=== PATIENT | female | born 1955 | race Caucasian/White ===

== ENCOUNTER → 2019-07-29 | Outpatient (CLI) | payer OTHER | END | disposition home or self-care (01) | LOC: RAH 10:01 | PROVIDERS: ATTEND Family Medicine | DX: Z12.31 Encounter for screening mammogram for malignant neoplasm of breast (principal); N64.89 Other specified disorders of breast | CPT/HCPCS: 77067 ==

== ENCOUNTER → 2024-03-16 | Outpatient (CLI) | payer MEDICARE ==
--- NOTE | 2024-03-16 23:32 | HMCSR ---
APPROVED REPORT EXAM: Two-dimensional and M-mode echocardiogram with Doppler and color Doppler. INDICATION ICD: Takotsubo cardiomyopathy I51.81 2D Dimensions RVDd2.9 cmLVEF(%)60.4 (>50%)LVED Vol(simp.)44.7 mL IVSd1.4 (0.7-1.1cm)FS(%)30 %LVES Vol(simp.)18.3 mL LVDd2.3 (3.8-5.6cm)LA (2D)1.9 (1.6-4.0cm)LVEF(%, simp.)59 % PWd1.2 (0.7-1.1cm)Ao Root(2D)3.4 (2.0-3.7cm)LA ESV INDEX (4CH)14.30 mL/m2 IVSs1.6 cmLVOT diam1.9 (1.8-2.4cm)LA ESV INDEX (2CH)14.90 mL/m2 LVDs1.6 (2.5-4.0cm) PWs1.4 cm M-Mode Dimensions EPSS0.6 cm LA (MM)1.7 (1.6-4.0cm) Ao Root(MM)3.4 (2.0-3.7cm) Aortic Valve AoV VTI0.8 mAo Mean GR43.0 mmHgLVOT VTI0.40 m ISMAEL (VMAX)1.5 cm2AVA (VTI) 1.5 cm2 Mitral Valve MV E Vmax65.0 cm/sDECEL Zouv084 ms MV A Vmax83.9 cm/sP 1/2 T30 ms E/A ratio0.8MVA (PHT)7.3 cm2 MR Max PG119 mmHg TDI E/E' Fyiwoa39.1E/E' Wecbzat32.7 Medial E' Peak V3.40 cm/sLateral E' Peak V3.30 cm/s Pulmonary Valve PV Vmax0.9 m/s PV Peak GR3.1 mmHg Tricuspid Valve TR Vmax2.4 m/sRAP (EST) 3 vqDcKIUC75.6 mmHg TR Peak GR22.6 mmHg Left Ventricle Left ventricular cavity size is normal. Normal wall motion Moderate concentric left ventricular hyper trophy. LVEF is >55%. Stage I diastolic dysfunction. Right Ventricle The right ventricle is normal size. The right ventricle is hyperdynamic. Atria The left atrium size is normal. The right atrium size is normal. Aortic Valve Aortic valve leaflets open well. No aortic regurgitation is present. There is no aortic valvular sten osis. LVOT obstruction with pk gradient of 109mmHg and mean gradient of 43mmHg. 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 Systolic anterior motion o f the mitral valve leaflet present. There is mild mitral valve regurgitation noted. There is no randy l valve stenosis. Tricuspid Valve The tricuspid valve is normal in structure and function. There is trace of tricuspid valve regurgitat ion noted. Pulmonic Valve The pulmonary valve is normal in structure and function. There is no pulmonic valvular regurgitation. Great Vessels The aortic root is normal in size. The IVC is normal in size and collapses >50% with inspiration. Pericardium Small pericardial effusion. Other Information Quality : Adequate Conclusion LVEF is >55%. Moderate concentric left ventricular hypertrophy. Left ventricular cavity size is normal. Stage I diastolic dysfunction. Normal wall motion There is no aortic valvular stenosis. LVOT obstruction with pk gradient of 109mmHg and mean gradient of 43mmHg. 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 Systolic anterior motion o f the mitral valve leaflet present. There is mild mitral valve regurgitation noted. Small pericardial effusion. Mild pulmonary hypertension Study quality was adequate
== END | disposition home or self-care (01) ==
LOC: RAH 14:45
PROVIDERS: ATTEND Internal Medicine Cardiovascular Disease
DX: I34.0 Nonrheumatic mitral (valve) insufficiency (principal); I51.81 Takotsubo syndrome; I27.20 Pulmonary hypertension, unspecified; I31.39 Other pericardial effusion (noninflammatory)
CPT/HCPCS: 93306

== ENCOUNTER → 2024-04-23 | Outpatient (CLI) | payer MEDICARE ==
--- NOTE | 2024-04-23 11:11 | HMCIMG ---
ESOPHAGUS REASON: Esophageal obstruction; Abnormal findings on diagnostic imaging of other pa COMPARISON: None TECHNIQUE: Esophagram was performed with fluoroscopic observation, fluoroscopy time 1 minute. Exam was performed with difficulty as patient was weak and had to difficult time standing. Initial barium administration was with the table and approximately 60 degree angle. FINDINGS: Swallowing mechanism appears unremarkable. Proximal and mid esophagus appear normal. There is a long segment of irregular narrowing in the distal esophagus. This measures approximately 5 cm. The narrowing appears fixed and does not distend with peristalsis. The narrowest point in the distal esophagus is between 3 and 4 mm. Patient was turned to the supine position for additional images. Patient was then raised to 260 degrees. There was retained barium in the esophagus, this again showed persistent marked narrowing of the distal esophagus. There is a small sliding hiatal hernia. Exam is otherwise unremarkable. IMPRESSION: 1. Severe irregular narrowing of the last 5 cm of the esophagus, the narrowest point is approximately 3 to 4 mm. 2. Otherwise unremarkable exam.
== END | disposition home or self-care (01) ==
LOC: RAH 09:36
PROVIDERS: ATTEND Internal Medicine Gastroenterology
DX: K22.2 Esophageal obstruction (principal); R93.3 Abnormal findings on diagnostic imaging of other parts of digestive tract; K44.9 Diaphragmatic hernia without obstruction or gangrene
CPT/HCPCS: 74220

== ENCOUNTER 2024-05-04 05:35 | Day surgery (SDC) | payer MEDICARE ==
[~2024-05-04] VITALS: Ht 154.9 cm; Wt 46.7 kg
[2024-05-04] VITALS (10 sets, daily range): BP systolic 109–120; BP diastolic 70–78; PULSE 61–90; RESP 10–16; TEMP 97–97.4
[2024-05-04] MEDS: 0.9%NACL 1000ML 1,000 ML IV ONE (06:26)
[2024-05-04] MEDS ORDERED: [UNRECOGNIZED DRUG - OTHER] PO (06:28)
[2024-05-04] MEDS ORDERED: LORA10TA7 PO (06:36)
[2024-05-04] MEDS ORDERED: LANS30CA55 PO (06:36)
[2024-05-04] MEDS ORDERED: SERT-440 PO (06:36)
[2024-05-04] MEDS ORDERED: ERGO500093 PO (06:36)
[2024-05-04] MEDS ORDERED: MONT-39 PO (06:36)
[2024-05-04] MEDS ORDERED: POTA-183 PO (06:36)
[2024-05-04] MEDS ORDERED: SUCR1TAB2 PO (06:36)
[2024-05-04] MEDS ORDERED: PROM25TA7 PO (06:36)
[2024-05-04] MEDS ORDERED: FAMO40TA7 PO (06:36)
[2024-05-04] MEDS ORDERED: LEVO50CA4 PO (06:36)
[2024-05-04] MEDS ORDERED: BISA-151 PO (06:36)
[2024-05-04] MEDS ORDERED: QUET50TA PO (06:36)
[2024-05-04] MEDS ORDERED: CYAN100099 PO (06:36)
[2024-05-04] MEDS ORDERED: MIDO5TAB4 PO (06:36)
[2024-05-04] MEDS ORDERED: FLUD0.1T2 PO (06:36)
[2024-05-04] MEDS ORDERED: ESOM40CA66 PO (06:36)
[2024-05-04] MEDS ORDERED: APIX5TAB PO (06:36)
[2024-05-04] MEDS ORDERED: ONDA-105 PO (06:36)
[2024-05-04] MEDS ORDERED: MEGE400O6 PO (06:36)
[2024-05-04] MEDS ORDERED: FOLI0.8C PO (06:36)
[2024-05-04] MEDS ORDERED: SIMV-43 PO (06:36)
[2024-05-04] MEDS ORDERED: proPOFol 10 MG/ML 20ML VIAL IV ONE (07:33)
[2024-05-04] MEDS ORDERED: LIDOCAINE HCL 1% 20 ML VIAL ONE (07:33)
--- NOTE | 2024-05-04 08:49 | NUR ---
Full and complete discharge instructions given to Patient and family. Voiced understanding of GI procedures and follow up expectations/Diet. All questions answered. PIV removed with catheter tip intact. W/C to POV with Family.
== END 2024-05-04 08:50 | disposition home or self-care (01) ==
LOC: ENDO 05:35 → DAH 05:35 → ENDO 08:50
PROVIDERS: ATTEND Internal Medicine Gastroenterology
DX: R13.10 Dysphagia, unspecified (principal); K22.2 Esophageal obstruction; K21.00 Gastro-esophageal reflux disease with esophagitis, without bleeding; K57.30 Diverticulosis of large intestine without perforation or abscess without bleeding; R93.3 Abnormal findings on diagnostic imaging of other parts of digestive tract; K50.90 Crohn's disease, unspecified, without complications; K59.09 Other constipation; I10 Essential (primary) hypertension; E03.9 Hypothyroidism, unspecified; E78.5 Hyperlipidemia, unspecified; I51.81 Takotsubo syndrome; F32.A Depression, unspecified; Z98.84 Bariatric surgery status; Z79.899 Other long term (current) drug therapy; Z87.898 Personal history of other specified conditions; Z98.890 Other specified postprocedural states
CPT/HCPCS: 43239; 43249; J7030 ×2; J2704; C1726; A4615; A4215; A4223; A4222; A4221; A4663; A4606; J3490

== ENCOUNTER 2024-07-09 16:21 | Inpatient (IN) | payer MEDICARE ==
[~2024-07-09] VITALS: Ht 170.2 cm; Wt 63.0 kg
[~2024-07-09 16:21] MED LIST: APIX5TAB PO; BISA-151 PO; CYAN100099 PO; ERGO500093 PO; ESOM40CA66 PO; FAMO40TA7 PO; FLUD0.1T2 PO; FOLI0.8C PO; LANS30CA55 PO; LEVO50CA5 PO; LORA10TA7 PO; MEGE400O40 PO; MIDO5TAB4 PO; MONT-39 PO; ONDA-105 PO; POTA-183 PO; PROM25TA7 PO; QUET50TA PO; SERT-440 PO; SIMV-43 PO; SUCR1TAB2 PO; [UNRECOGNIZED DRUG - OTHER] PO
--- NOTE | 2024-07-09 17:49 | EKG ---
[facility] Test Date: 2024-07-09 Test Time: 17:47:40 Pat Name: EFRAIN BAKER Department: EDH Room: 230 Gender: F [employer] Operator: [id number] : 1955 Requested By: ISAC AYON Order Number: [id number] Reading MD: Arsalan Cheney Measurements Intervals Randolph Rate: 99 P: 27 WV: 122 QRS: 56 QRSD: 70 T: 110 QT: 374 QTc: 473 Interpretive Statements Sinus rhythm Atrial premature complexes Low voltage, extremity and precordial leads Nonspecific T abnormalities, lateral leads No previous ECG available for comparison Electronically Signed On 07-14-2024 07:11:49 CDT by Arsalan Cheney Please click the below link to view image of tracing.
--- NOTE | 2024-07-09 17:59 | ERN ---
ED Note History of Present Illness Stated Complaint: DIRECT ADMIT Chief Complaint: Abdominal Pain Time Seen by MD: 17:51 Time Seen by Midlevel: 18:00 Dictation: 69-year-old female with a history of hypothyroidism, COPD, cholesterol coming from GI is office for evaluation of dysphagia. According to family patient has a history of esophageal obstruction in the has a had stents placed in but yesterday he fat her oatmeal and since then has been throwing up all the fluid and foods that they have been feeding her. Today went to the GI office in the GI physician and was told to come here to the emergency room. Patient at this time has no complaints. Allergies: Coded Allergies: No Known Allergies (Unverified Allergy, Unknown, 05/18/24) Home Meds Reported Medications Promethazine HCl (Promethazine HCl) 25 Mg Tablet, 1 TAB PO Q6HPRN PRN for nausea/vomiting for 7 Days, #28 TAB 0 Refills 05/04/24 Montelukast Sodium (Montelukast Sodium) 10 Mg Tablet, 1 TAB PO DAILY for 30 Days, #30 TAB 0 Refills 05/04/24 Loratadine (Loratadine) 10 Mg Tablet, 1 TAB PO DAILY for allergy symptoms for 30 Days, #30 TAB 0 Refills 05/04/24 Megestrol Acetate (Megestrol Acetate) 400 Mg/10 Ml (40 Mg/Ml) Oral.susp, 10 ML PO DAILY for 30 Days, #300 ML 0 Refills 05/04/24 Fludrocortisone Acetate (Fludrocortisone Acetate) 0.1 Mg Tablet, 1 TAB PO DAILY for 30 Days, #30 TAB 0 Refills 05/04/24 Midodrine HCl (Midodrine HCl) 5 Mg Tablet, 1 TAB PO TID for 30 Days, #90 TAB 0 Refills 05/04/24 Sucralfate (Sucralfate) 1 Gram Tablet, 1 TAB PO TID for 30 Days, #90 TAB 0 Refills 05/04/24 Quetiapine Fumarate (Seroquel) 50 Mg Tablet, 1 TAB PO HS for 30 Days, #30 TAB 0 Refills 05/04/24 Esomeprazole Magnesium (Esomeprazole Magnesium) 40 Mg Capsule.dr, 1 CAP PO DAILY for 30 Days, #30 CAP 0 Refills 05/04/24 Ergocalciferol (Vitamin D2) (Vitamin D2) 1,250 Mcg (73834 Unit) Capsule, 1250 MCG PO AM, CAP 05/04/24 Simvastatin (Simvastatin) 20 Mg Tablet, 20 MG PO AM, TAB 05/04/24 Bisacodyl (Bisacodyl) 5 Mg Tablet.dr, 5 MG PO AM, TAB 05/04/24 Potassium Chloride (Klor-Con 10) 10 Meq Tablet.er, 1 TAB PO DAILY for 30 Days, #30 TAB 0 Refills 05/04/24 Lansoprazole (Lansoprazole) 30 Mg Capsule.dr, 30 MG PO BID, CAP 05/04/24 Sertraline HCl (Sertraline HCl) 100 Mg Tablet, 1 TAB PO DAILY for 30 Days, #30 TAB 0 Refills 05/04/24 Folic Acid (Folic Acid) 0.8 Mg Capsule, 1 CAP PO DAILY for 30 Days, #30 CAP 0 Refills 05/04/24 Cyanocobalamin (Vitamin B-12) (B-12) 1,000 Mcg Tablet, 1 TAB PO DAILY for 30 Days, #30 TAB 0 Refills 05/04/24 Apixaban (Eliquis) 5 Mg Tablet, 1 TAB PO BID for 30 Days, #60 TAB 0 Refills 05/04/24 Levothyroxine Sodium (Levothyroxine) 50 Mcg Capsule, 1 CAP PO DAILY for 30 Days, #30 CAP 0 Refills 05/04/24 Ondansetron HCl (Ondansetron HCl) 8 Mg Tablet, 1 TAB PO TID for nausea/vomiting for 10 Days, #30 TAB 0 Refills 05/04/24 Famotidine (Famotidine) 40 Mg Tablet, 1 TAB PO DAILY for 30 Days, #30 TAB 0 Refills 05/04/24 [Azasan] No Conflict Check, 50 MG PO AM 05/04/24 Past Medical History Past Medical History: Diverticulosis, GERD, Hypothyroid, Other Additional Past Medical Hx: CROHNS Surgical History: Other Surgical History Other: ESOPHAGEAL STENT Review of System Dictation Constitutional: Negative for fever,chills, and weight loss Eyes: Negative for injury, pain,redness, and discharge ENT: Negative for injury,pain or swelling Cardiovascular: Negative for chest pain, palpitations, and edema Respiratory: Negative for shortness of breath, cough, and wheezing, Abdomen/GI: Negative for abdominal pain, nausea, vomiting, diarrhea, and constipation Back: Negative for injury and pain : Negative for injury, bleeding and discharge MS/Extremity: Negative for injury and deformity Skin: Negative for rash, and discoloration Neuro: Negative for headache, weakness, numbness, tingling, and seizure Psych: Negative for suicide ideation, homicidal ideation, and hallucinations Review of Systems: was completed Initial Vital Sign VS Vital Signs Date Time Temp Pulse Resp B/P (MAP) Pulse Ox O2 Delivery O2 Flow Rate FiO2 07/09/24 16:46 98.1 70 16 100 Room Air 0 07/09/24 18:47 125/80 21 Physical Exam Dictation General: awake, alert, NAD Head/Face: Normocephalic, atraumatic Eyes: PERRL, EOMI, vision at baseline ENT: oral cavity clear, TMs clear, no signs of infection Neck: Trachea midline, supple, no nuchal rigidity Cardiovascular: RRR, normal S1/S2, No MRGs, no JVD, bilateral lower extremities plus three pitting edema Respiratory: CTAB, no respiratory distress, No rales or wheezes Abdomen: Soft, non-tender, non-distended, normal bowel sounds, no guarding or rebound. Skin: Warm, dry, normal turgor, no rash MS/Extremity: Pulses equal, no cyanosis, neurovascular intact, FROM Neuro: COAx4, GCS 15, strength 5/5, CN 2-12 intact, normal cerebellar exam, normal gait, Psych: Normal behavior, mood, and affect normal Results (Laboratory/Radiology) Laboratory/Radiology Laboratory Tests Test 07/09/24 18:23 07/09/24 18:53 White Blood Count 4.4 K/uL (4.8-10.8) L Red Blood Count 3.00 MIL/uL (4.00-5.50) L Hemoglobin 10.0 g/dL (12.0-16.0) L Hematocrit 32.3 % (36-48) L Mean Corpuscular Volume 107.7 fL (79-99) H Mean Corpuscular Hemoglobin 33.3 pg (27.0-33.0) H Mean Corpuscular Hemoglobin Concent 31.0 g/dL (32.0-36.0) L Red Cell Distribution Width 20.9 % (11.0-15.5) H Platelet Count 260 K/uL (130-400) Mean Platelet Volume 9.8 fL (7.5-10.5) Immature Granulocyte % (Auto) 0.2 % (0-1) Neutrophils (%) (Auto) 81.0 % (40.0-77.0) H Lymphocytes (%) (Auto) 13.3 % (21.0-51.0) L Monocytes (%) (Auto) 5.0 % (3.0-13.0) Eosinophils (%) (Auto) 0.0 % (0.0-8.0) Basophils (%) (Auto) 0.5 % (0.0-5.0) Neutrophils # (Auto) 3.6 K/uL (1.8-7.7) Lymphocytes # (Auto) 0.6 K/uL (1.0-4.8) L Monocytes # (Auto) 0.2 K/uL (0.1-1.0) Eosinophils # (Auto) 0.00 K/uL (0.00-0.70) Basophils # (Auto) 0.02 K/uL (0.00-0.20) Absolute Immature Granulocyte (auto 0.01 K/uL (0-1) Nucleated Red Blood Cells 0.0 % (0.0-0.19) Red Blood Cell Morphology See comments Sodium Level 142 mmol/L (136-145) Potassium Level 3.8 mmol/L (3.5-5.1) Chloride Level 108 mmol/L (101-111) Carbon Dioxide Level 24 mmol/L (21-32) Blood Urea Nitrogen 15 mg/dL (7-18) Creatinine 0.4 mg/dL (0.5-1.0) L Glomerular Filtration Rate Calc 108 mL/min (>90) Random Glucose 62 mg/dL (70-105) L Total Calcium 8.1 mg/dL (8.5-10.1) L Troponin I High Sensitivity 8 ng/L (4-50) B-Type Natriuretic Peptide 94 pg/mL (0-100) Lipase 11 U/L (16-77) L Influenza Type A Antigen Negative For Type A Influenza Type B Antigen Negative For Type B SARS-CoV-2 Antigen (Rapid) PRESUMPTIVE NEGATIVE Labs Reviewed?: Yes EKG Comment: EKGs done at 5:47 p.m., sinus rhythm at a rate of 99, atrial premature complexes, low voltage, extremity and precordial leads, nonspecific T abnormalities, lateral leads. No STEMI interpreted by ER MD. X-RAY Comment: [facility] [address] [id number] IMAGING REPORT Signed PATIENT: EFRAIN BAKER I MR#: [id number] : 1955 SEX: F AGE: 69 LOCATION: ED ORDER 173 STATUS: REG ER REPORT#: [id number] SERVICE 172 REASON: cough ORDERING PHYSICIAN: ISAC AYON NP PROCEDURE: CXR1VW - CHEST 1VW PORTABLE CHEST RADIOGRAPH INDICATION: cough COMPARISON: 07/09/2024 CT chest FINDINGS: Patient positioning is not optimal, but the radiologic examination is still believed to be of reasonable diagnostic quality. Heart size is normal. The pulmonary vascularity and payam appear normal. Left lung opacities. Small to medium-sized left pleural effusion. No pneumothorax detected. IMPRESSION: Left lung pneumonia and small to medium-sized left pleural effusion. Please refer to the corresponding CT chest imaging for details regarding nontypical right lung pneumonia or other small airways disease process. DICTATED BY: STEFANY MARROQUIN MD DATE: 07/09/241849 ELECTRONICALLY SIGNED BY: STEFANY MARROQUIN MD DATE: 07/09/241852 CT Scan Comment: [facility] [address] [id number] IMAGING REPORT Signed PATIENT: EFRAIN BAKER I MR#: [id number] : 1955 SEX: F AGE: 69 LOCATION: ED ORDER 43 STATUS: REG ER REPORT#: [id number] SERVICE 174 REASON: dyphagia ORDERING PHYSICIAN: ISAC AYON NP PROCEDURE: CHESTAB WO - CT CHEST ABDOMEN W/O CONTRAST CT CHEST WITHOUT CONTRAST. CT ABDOMEN WITHOUT CONTRAST INDICATION: Dysphagia; no other history provided. TECHNIQUE: Routine 5 mm thick axial images were acquired from the thoracic inlet through the abdomen without contrast. CT was performed with one or more of the following dose reduction techniques: Automated exposure control, adjustment of the mA and/or kV according to patient size, or use of iterative reconstruction technique. COMPARISON: 05/19/2024 FINDINGS: Patient positioning is not optimal, and this CT examination is limited as a result. CT CHEST: The heart size is normal. No pericardial effusion noted. No evidence for thoracic aortic aneurysm. Lingular and left lower lobe greater than left upper lobe airways are filled with mucus/secretions/aspirated material. Trachea and right lung airways are patent. No evidence for pneumothorax. Small to medium-sized left pleural effusion and extensive lingular and left lower lobe opacities. Scattered "tree-in-bud" micronodular opacities scattered throughout the inferior right upper lobe and throughout the right lower lobe. No axillary, hilar, or mediastinal lymphadenopathy. No pleural effusion or pneumothorax identified. CT ABDOMEN: The liver is normal in size and smooth in contour without biliary duct dilation. The spleen is normal in size.. The gallbladder appears normal. The pancreas appears normal without pancreatic duct dilation. The adrenal glands appear normal. Both kidneys appear normal. . No evidence for intra-abdominal free air or free or organized fluid collection. Trace calcific plaque along the abdominal aortic smith without aneurysmal dilation. IVC filter is in place. Moderate stool burden. A few diverticula along the distal colon. Generalized moderate soft tissue swelling. Chronic moderate L1 vertebral body compression deformity. IMPRESSION: Limited history provided. Limitations as reported. 1. Posterior left upper lobe, lingular, and left lower lobe atelectasis/evolving pneumonia, likely aspiration-related (lingular and left lower lobe greater than left upper lobe airways are filled with mucus/secretions/aspirated material), and associated small to medium-sized left pleural effusion. 2. Nontypical right lung pneumonia or other small airways disease process. 3. Very small pericardial effusion with greatest thickness measuring up to 1.0 cm. 4. Small pericardial effusion, small-volume abdominopelvic ascites and moderate anasarca, all of which may be related to fluid imbalance and/or cardiogenic. 5. Distal colonic diverticulosis and moderate stool burden. 6. Additional minor findings and pertinent negatives as reported. DICTATED BY: STEFANY MARROQUIN MD DATE: 07/09/241816 ELECTRONICALLY SIGNED BY: STEFANY MARROQUIN MD DATE: 07/09/241825 ED Course ED Course Orders Procedure Category Date Status Time Cbc With Differential LAB 07/09/24 Complete 17:29 Basic Metabolic Panel LAB 07/09/24 Complete 17:29 Troponin I High LAB 07/09/24 Complete Sensitivity 17:29 12 Lead Ekg Tracing- EKG 07/09/24 Complete Technical 17:29 Chest 1vw RAD 07/09/24 Resulted 17:29 Urinalysis Profile LAB 07/09/24 Logged 17:29 Covid19 (Sars Antigen LAB 07/09/24 Complete Rapid) 17:29 Influenza Type A & B, LAB 07/09/24 Complete Rapid 17:29 B-Type Natriuretic LAB 07/09/24 Complete Peptide 17:31 0.9%Nacl 1000ml (Ns PHA 07/09/24 In Process 1000ml) 17:34 Ct Chest Abdomen W/O CT 07/09/24 Resulted Contrast 17:43 Lipase LAB 07/09/24 Complete 17:29 Ceftriaxone 1g Vial PHA 07/09/24 In Process (Rocephine 1g Inj) 19:19 Admit Orders ADM 07/09/24 Transmitted 19:29 Keep Patient Npo CPOE 07/09/24 Transmitted 19:[address] 07/09/24 Transmitted 19:29 Basic Metabolic Panel LAB 07/10/24 Verified 04:00 Cbc With Differential LAB 07/10/24 Verified 04:00 Magnesium LAB 07/10/24 Verified 04:00 Phosphorus LAB 07/10/24 Verified 04:00 Blood Cult DESTINY 07/09/24 Logged 19:29 Respiratory Cult DESTINY 07/09/24 Logged W/Gram Stain 19:29 Urinalysis Profile LAB 07/09/24 Logged 19:29 Apply Knee High Teds CPOE 07/09/24 Transmitted 19:29 Apply Scds CPOE 07/09/24 Transmitted 19:29 Condition: CPOE 07/09/24 Transmitted 19:29 Nurse To Enter Home CPOE 07/09/24 Transmitted Medication 19:29 Oxygen By Nc/Pulse Ox CPOE 07/09/24 Transmitted 19:29 Telemetry Monitoring CPOE 07/09/24 Transmitted 19:29 Vital Signs(Adult CPOE 07/09/24 Transmitted Hospitalist) 19:29 Acetaminophen 650mg PHA 07/09/24 In Process Supp (Tylenol 650mg 19:30 Ondansetron 4mg Inj PHA 07/09/24 In Process (Zofran 4mg Inj) 19:30 Morphine 4mg Syg PHA 07/09/24 In Process (Morphine 4mg Syg) 19:30 Hydralazine 20mg Inj PHA 07/09/24 In Process (Apresoline 20mg In 19:30 Enoxaparin Sodium 40 PHA 07/10/24 In Process Mg/0.4 Ml (Lovenox) 09:00 Ipratropium/Albuterol PHA 07/10/24 In Process Neb (Duoneb) 00:00 Lactated Ringers PHA 07/09/24 In Process 1000ml (Lactated 19:30 Aspiration Precautions CPOE 07/09/24 Transmitted 19:29 Tapwater Enema(0500, CPOE 07/09/24 Transmitted 2100) 19:35 Thyroid Stimulating LAB 07/10/24 Verified Hormone 04:00 Echo 2-D Complete ECHO 07/09/24 Logged 19:36 Zosyn 3.375gm+Ns 50ml PHA 07/09/24 In Process (Zosyn 3.375gm+Ns 21:00 Fall Precautions CPOE 07/09/24 Transmitted 19:40 Famotidine 20mg Vial PHA 07/10/24 In Process (Pepcid 20mg Vial) 09:00 Gastroenterology CONPHYSVC 07/09/24 Verified Consult 19:46 Current Medications Medications (Trade) Dose Ordered Sig/Jennifer Route PRN Reason Start Time Stop Time Status Last Admin Dose Admin Acetaminophen (TYLenol 650MG SUPPOSITORY) 650 mg Q6H PRN RC MILD PAIN (1-3) 07/09/24 19:30 08/08/24 19:29 Albuterol (DUOneb) 1 UDVIAL [id number] IH 07/10/24 00:00 08/09/24 00:00 Ceftriaxone Sodium (ROCEphine 1G INJ) 1 gm ONCE IVPB 07/09/24 19:19 07/09/24 23:59 Enoxaparin Sodium (Lovenox) 40 mg DAILY SQ 07/10/24 09:00 08/09/24 08:59 Famotidine (Pepcid 20mg Vial) 20 mg DAILY IV 07/10/24 09:00 08/09/24 08:59 Hydralazine HCl (APRESOLine 20MG INJ) 10 mg Q6H PRN IV For:SBP above 160;DBP above 90 07/09/24 19:30 08/08/24 19:29 Lactated Ringer's 1,000 ml @ 75 mls/hr [id number] IV 07/09/24 19:30 08/08/24 19:29 Morphine Sulfate (morPHINE 4MG SYG) 2 mg Q4H PRN IVP SEVERE PAIN (7-10) 07/09/24 19:30 07/16/24 19:29 Ondansetron HCl (zoFRAN 4MG INJ) 4 mg Q6H PRN IV NAUSEA/VOMITING 07/09/24 19:30 08/08/24 19:29 Piperacillin Sod/ Tazobactam Sod (Zosyn 3.375gm+NS 50ml) 3.375 gm [id number] IV 07/09/24 21:00 07/19/24 20:59 Sodium Chloride 1,000 ml @ 500 mls/hr Q2H IV 07/09/24 17:34 08/08/24 17:33 Vital Signs Date Time Temp Pulse Resp B/P (MAP) Pulse Ox O2 Delivery O2 Flow Rate FiO2 07/09/24 18:47 98.1 89 14 125/80 96 Room Air* 0 21 07/09/24 16:46 98.1 70 16 100 Room Air 0 Medical Decision Making MDM MDM:69-year-old female with a history of hypothyroidism, COPD, cholesterol coming from GI is office for evaluation of dysphagia. According to family patient has a history of esophageal obstruction in the has a had stents placed in but yesterday he fat her oatmeal and since then has been throwing up all the fluid and foods that they have been feeding her. Today went to the GI office in the GI physician and was told to come here to the emergency room. Patient at this time has no complaints. Chemistry shows leukocytopenia 4.4, however this seems to be patient's baseline based on previous visits. Microcytic anemia, no thrombocytopenia. Chemistry shows no electrolyte abnormality. CT scan of the chest and abdomen shows right lung pneumonia, small pericardial effusion, moderate anasarca, diverticulosis. Edmund MAS for hospitalist, okay to admit patient. Added an order for routine consult for GI. And initiate antibiotics in the emergency room. Differential diagnosis: SBO, esophageal stricture, gastroenteritis, dehydration, Rationale: Tests considered and ordered secondary to shared decision making include: labs, ECG and radiology Previous outside records reviewed: Old ER visits. Risk of complication and/or morbidity or mortality of patient management: None Medications-Per medication reconciliation Need for hospitalization: Patient does meet criteria for hospitalization. Need for emergency major/minor surgery: No There are no social concerns with this patient. Prescription drug management Prescriptions will include symptomatic care Patient's prior external medical records from other ER visits were reviewed by me as indicated. Prior testing and results from previous visits were reviewed. Prior tests were taken into account with medical decision making and resource utilization, independent historian/historians were used to obtain complete medical history. I independently interpreted the test that were performed, results were reviewed by me and considered findings on radiology if ordered. Medical management and examination interpretation discussions were had by me with other qualified healthcare professionals as indicated for the patient's care. DX & DISP Disposition: Inpatient Decision to Admit Date: Jul 09, 2024 Decision to Admit Time: 19:48 Departure Impression: Primary Impression: Pneumonia Additional Impressions: Dysphagia, Esophageal stricture Condition: Stable Referrals: GLORIA MAYA (PCP) Time of Disposition: 19:48 I have reviewed the case, and I agree with, Diagnosis and Plan ISAC AYON NP Jul 09, 2024 17:59
--- NOTE | 2024-07-09 18:26 | HMCIMG ---
CT CHEST WITHOUT CONTRAST. CT ABDOMEN WITHOUT CONTRAST INDICATION: Dysphagia; no other history provided. TECHNIQUE: Routine 5 mm thick axial images were acquired from the thoracic inlet through the abdomen without contrast. CT was performed with one or more of the following dose reduction techniques: Automated exposure control, adjustment of the mA and/or kV according to patient size, or use of iterative reconstruction technique. COMPARISON: 05/19/2024 FINDINGS: Patient positioning is not optimal, and this CT examination is limited as a result. CT CHEST: The heart size is normal. No pericardial effusion noted. No evidence for thoracic aortic aneurysm. Lingular and left lower lobe greater than left upper lobe airways are filled with mucus/secretions/aspirated material. Trachea and right lung airways are patent. No evidence for pneumothorax. Small to medium-sized left pleural effusion and extensive lingular and left lower lobe opacities. Scattered "tree-in-bud" micronodular opacities scattered throughout the inferior right upper lobe and throughout the right lower lobe. No axillary, hilar, or mediastinal lymphadenopathy. No pleural effusion or pneumothorax identified. CT ABDOMEN: The liver is normal in size and smooth in contour without biliary duct dilation. The spleen is normal in size.. The gallbladder appears normal. The pancreas appears normal without pancreatic duct dilation. The adrenal glands appear normal. Both kidneys appear normal. . No evidence for intra-abdominal free air or free or organized fluid collection. Trace calcific plaque along the abdominal aortic smith without aneurysmal dilation. IVC filter is in place. Moderate stool burden. A few diverticula along the distal colon. Generalized moderate soft tissue swelling. Chronic moderate L1 vertebral body compression deformity. IMPRESSION: Limited history provided. Limitations as reported. 1. Posterior left upper lobe, lingular, and left lower lobe atelectasis/evolving pneumonia, likely aspiration-related (lingular and left lower lobe greater than left upper lobe airways are filled with mucus/secretions/aspirated material), and associated small to medium-sized left pleural effusion. 2. Nontypical right lung pneumonia or other small airways disease process. 3. Very small pericardial effusion with greatest thickness measuring up to 1.0 cm. 4. Small pericardial effusion, small-volume abdominopelvic ascites and moderate anasarca, all of which may be related to fluid imbalance and/or cardiogenic. 5. Distal colonic diverticulosis and moderate stool burden. 6. Additional minor findings and pertinent negatives as reported.
[2024-07-09 18:52] LABS: BASOPHILS # (AUTO) 0.02 K/uL (0.00-0.20); BASOPHILS % (AUTO) 0.5 % (0.0-5.0); HEMATOCRIT 32.3 % (36-48); IMMATURE GRANULOCYTE ABSOLUTE 0.01 K/uL (0-1); LYMPHOCYTES # (AUTO) 0.6 K/uL (1.0-4.8); LYMPHOCYTES % (AUTO) 13.3 % (21.0-51.0); MEAN CORPUSCULAR HEMOGLOBIN 33.3 pg (27.0-33.0); MEAN CORPUSCULAR VOLUME 107.7 fL (79-99); MONOCYTES # (AUTO) 0.2 K/uL (0.1-1.0); NEUTROPHILS # (AUTO) 3.6 K/uL (1.8-7.7); PLATELET COUNT (AUTO) 260 K/uL (130-400); RED CELL DISTRIBUTION WIDTH 20.9 % (11.0-15.5); WHITE BLOOD COUNT (AUTO) 4.4 K/uL (4.8-10.8)
--- NOTE | 2024-07-09 18:53 | HMCIMG ---
PORTABLE CHEST RADIOGRAPH INDICATION: cough COMPARISON: 07/09/2024 CT chest FINDINGS: Patient positioning is not optimal, but the radiologic examination is still believed to be of reasonable diagnostic quality. Heart size is normal. The pulmonary vascularity and payam appear normal. Left lung opacities. Small to medium-sized left pleural effusion. No pneumothorax detected. IMPRESSION: Left lung pneumonia and small to medium-sized left pleural effusion. Please refer to the corresponding CT chest imaging for details regarding nontypical right lung pneumonia or other small airways disease process.
[2024-07-09 18:59] LABS: CREATININE 0.4 mg/dL (0.5-1.0); POTASSIUM 3.8 mmol/L (3.5-5.1)
[2024-07-09] MEDS: cefTRIAXone 1G VIAL IVPB SCH (19:19)
[2024-07-09] MEDS ORDERED: acetaMINOPHEN 650 MG SUPPOSITORY RC PRN (19:30)
[2024-07-09] MEDS ORDERED: morPHINE 4 MG SYG IVP PRN (19:30)
[2024-07-09] MEDS: LACTATED RINGERS 1000ML 1,000 ML IV SCH (19:30)
[2024-07-09] MEDS ORDERED: hydrALAZine 20MG/ML VIAL IV PRN (19:30)
[2024-07-09] MEDS ORDERED: ondanSETRON 4MG INJ IV PRN (19:30)
[2024-07-09 19:32] LABS: INFLUENZA TYPE A Negative For Type A (NEGATIVE); INFLUENZA TYPE B Negative For Type B (NEGATIVE)
--- NOTE | 2024-07-09 19:33 | HP ---
History of Present Illness Reason for Visit: abdominal pain History of Present Illness Ms. Slade is a 69-year-old female who is seen and examined today on 07/09/2024. Patient is a good historian of personal health. Patient states he came to the emergency department, "my esophageal stricture is block and I needed open again."Patient states two days ago he started having difficulty swallowing. Patient went to see her information assurance manager today and was told she should go to the emergency department. Today in the emergency department CBC unremarkable, chemistry unremarkable, no urinalysis has been collected or sent to lab, chest x-ray shows left lower lung pneumonia, CT of the chest shows left lower lung pneumonia possibly aspiration pneumonia, right lung pneumonia and small pericardial effusion. CT of abdomen shows distal colonic diverticulosis and moderate stool burden. Past Medical History Patient History: Diabetes mellitus FATHER PAST MEDICAL HISTORY: Esophageal stricture/stenosis, history of dysphagia, Crohn's disease, irritable bowel syndrome, depression, hypertension, hypothyroidism, hyperlipidemia, GERD, chronic constipation, history of takotsubo cardiomyopathy, history of brain injury in 2019, GERD PAST SURGICAL HISTORY: x2, gastric bypass surgery 1991, neck surgery x2, carpal tunnel release, bilateral knee surgery PAST SOCIAL HISTORY: Lives with at home, denies active smoking or alcohol consumption. Patient has been nonambulatory for 156 days. 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 Patient lives with the has been Cedrick. Patient requires assistance with her ADLs. Patient denies difficulty paying her bills. Review of Systems General: No Fever, No Chills, No Night Sweats, No Fatigue, No Malaise, No Appetite, No Other HEENT: No Head Aches, No Visual Changes, No Eye Pain, No Ear Pain, No Dysphasia, No Sinus Congestion, No Post Nasal Drip, No Sore Throat, No Other Pulmonary: No Dyspnea, No Cough, No Pleuritic Chest Pain, No Other Cardiovascular: No: Chest Pain, Palpitations, Orthopnea, Paroxysmal Noc. Dyspnea, Edema, Lt Headedness, Other Gastrointestinal: Other (Dysphagia); No: Nausea, Vomiting, Abdominal Pain, Diarrhea, Constipation, Melena, Hematochezia Genitourinary: No Dysuria, No Frequency, No Incontinence, No Hematuria, No Retention, No Other Musculoskeletal: No: other, neck pain, shoulder pain, arm pain, back pain, hand pain, leg pain, foot pain Skin: No Urticaria, No Rash, No Other Neurological: Weakness; No: Numbness, Incoordination, Change in speech, Confusion, Seizures, Other Allergies: Coded Allergies: No Known Allergies (Unverified Allergy, Unknown, 05/18/24) Scheduled Apixaban (Eliquis), 1 TAB PO BID, (Reported) Bisacodyl (Bisacodyl), 5 MG PO AM, (Reported) Cyanocobalamin (Vitamin B-12) (B-12), 1 TAB PO DAILY, (Reported) Ergocalciferol (Vitamin D2) (Vitamin D2), 1,250 MCG PO AM, (Reported) Esomeprazole Magnesium (Esomeprazole Magnesium), 1 CAP PO DAILY, (Reported) Famotidine (Famotidine), 1 TAB PO DAILY, (Reported) Fludrocortisone Acetate (Fludrocortisone Acetate), 1 TAB PO DAILY, (Reported) Folic Acid (Folic Acid), 1 CAP PO DAILY, (Reported) Lansoprazole (Lansoprazole), 30 MG PO BID, (Reported) Levothyroxine Sodium (Levothyroxine), 1 CAP PO DAILY, (Reported) Loratadine (Loratadine), 1 TAB PO DAILY, (Reported) Megestrol Acetate (Megestrol Acetate), 10 ML PO DAILY, (Reported) Midodrine HCl (Midodrine HCl), 1 TAB PO TID, (Reported) Montelukast Sodium (Montelukast Sodium), 1 TAB PO DAILY, (Reported) Ondansetron HCl (Ondansetron HCl), 1 TAB PO TID, (Reported) Potassium Chloride (Klor-Con 10), 1 TAB PO DAILY, (Reported) Quetiapine Fumarate (Seroquel), 1 TAB PO HS, (Reported) Sertraline HCl (Sertraline HCl), 1 TAB PO DAILY, (Reported) Simvastatin (Simvastatin), 20 MG PO AM, (Reported) Sucralfate (Sucralfate), 1 TAB PO TID, (Reported) [Azasan], 50 MG PO AM, (Reported) Scheduled PRN Promethazine HCl (Promethazine HCl), 1 TAB PO Q6HPRN PRN for nausea/vomiting, (Reported) Exam Vital Signs Vital Signs Date Time Temp Pulse Resp B/P (MAP) Pulse Ox O2 Delivery O2 Flow Rate FiO2 07/09/24 18:47 98.1 89 14 125/80 96 Room Air* 0 21 General Appearance: Alert, Oriented X3, Cooperative, mild distress HEENT: Atraumatic, EOMI Respiratory: Other (Bilateral rhonchi) Cardiovascular: Regular rate, Regular rhythm, Normal S1, Normal S2 Abdominal: Normal bowel sounds, Soft, No tenderness Extremities: No edema Skin: No significant lesion Neuro: Sensation intact, Cranial nerves 3-12 NL Psych/Mental Status: Mental status NL, Mood NL, Thoughts/Content NL Assessment/Plan ASSESSMENT: [ Multifocal pneumonia, POA Small pericardial effusion, POA Constipation, POA Esophageal stricture/stenosis History of dysphagia Crohn's disease Orbital bowel syndrome Hypertension Hypothyroidism Hyperlipidemia History of takotsubo cardiomyopathy History of brain injury PLAN: [ Admit patient to medical floor as inpatient status. Place patient on telemetry monitoring. Empiric antibiotic therapy with Zosyn DuoNebs every 6 hours Keep patient NPO IV fluid maintenance therapy lactated Ringer's at 75 mL/HR Speech therapy for bedside swallow evaluation Aspiration precautions Advance diet per speech therapy recommendations Tap water enemas twice daily Gastroenterology service was consulted from the emergency department, Dr. Monroy Consider resuming home medications once they have been reconciled 2D echo in a.m. Fall precautions Check TSH in a.m. For now, Hydralazine 10 mg IV every 4 hours for systolic blood pressure greater than 160 mmHg GI prophylaxis, famotidine DVT prophylaxis, Lovenox ADVANCED CARE PLANNING 1. Which of the following were discussed? Hospice Care - Yes Therapeutic options - Yes Advance Directives - Yes patient states she does not have any advance directives in place at this time, however her ,Cedrick can make decisions for her if she becomes unable. Other discussions - patient wishes to remain a full code at this time 2. Discussed with who? Patient 3. Voluntary nature of this service was explained to the patient? Yes 4. Amount of time spent - ___ 16 minutes ____ 5. Reviewed by Physician? (if this service was performed by NPP) Yes This document was generated in part using voice recognition software, occasional wrong word or sound alike substitutions may have occurred due to the inherent limitations of voice recognition software. Read the chart carefully and recognize using context, where the substitutions have occurred. Although every effort was made to edit the content, manager grant and typing errors may occur ATTESTATION BY PHYSICIAN I have seen and examined the patient. I reviewed the documentation, medical decision making, and treatment plan as noted by the mid-level provider above. I agree with the findings and plan of care. MONIKA LINTON SHELTERED WORKSHOP EXECUTIVE DIRECTOR Jul 09, 2024 19:33 CARMEN STOVALL MD Jul 13, 2024 07:21
--- NOTE | 2024-07-09 19:33 | NUR ---
PT CARE ASSUMED AT THIS TIME
[2024-07-09] MEDS: 0.9%NACL 1000ML 1,000 ML IV SCH (19:34)
[2024-07-09 19:38] LABS: COVID19 (SARS ANTIGEN RAPID) PRESUMPTIVE NEGATIVE (NEGATIVE)
[2024-07-09] MEDS: ZOSYN 3.375GM +NS 50ML IV SCH (21:48)
[2024-07-09] MEDS: IpraTROPium/alBUTERol SULFATE 3 ML SOLUTION IH ONE (22:50)
[2024-07-09] MEDS: SODIUM CHLORIDE 3% FOR INHALATION 4 ML/AMP VIAL.NEB IH ONE (23:26)
[2024-07-09] MEDS: IpraTROPium/alBUTERol SULFATE 3 ML SOLUTION IH SCH (23:26)
[2024-07-09 23:28] VITALS: PULSE 85; RESP 19; O2SAT 100
[2024-07-10] VITALS (10 sets, daily range): BP systolic 111–131; BP diastolic 64–73; PULSE 84–96; RESP 16–18; TEMP 97.9–98.4; O2SAT 94–99
--- NOTE | 2024-07-10 02:22 | NUR ---
PT CHANGED AT THIS TIME. BOWEL MOVEMENT WAS SOFT IN CONSISTENCY AND PALE BROWN IN COLOR.
[2024-07-10 02:31] LABS: APPEARANCE,URINE CLEAR (CLEAR); BILIRUBIN,URINE NEGATIVE (NEGATIVE); COLOR,URINE YELLOW (YELLOW); GLUCOSE, URINE (UA) NEGATIVE (NEGATIVE); KETONES,URINE 10 mg/dL (NEGATIVE); LEUKOCYTE ESTERASE ,URINE 75 Leu/uL (NEGATIVE); NITRATE,URINE 2+ (NEGATIVE); PROTEIN,URINE 10 mg/dL (NEGATIVE); UROBILINOGEN,URINE 0.2 mg/dL (0.2-1.0)
[2024-07-10 02:32] LABS: ADD UA MICROSCOPIC YES
[2024-07-10 02:34] LABS: BACTERIA,URINE MOD /HPF (None Seen); MUCUS,URINE MANY LPF (None Seen); SQUAMOUS EPITHELIAL CELL,UR RARE /HPF (0-2); WBC,URINE 26-50 /HPF (0-1)
[2024-07-10] MEDS: SODIUM CHLORIDE 3% FOR INHALATION 4 ML/AMP VIAL.NEB IH ONE ×2 (06:59→11:36)
--- NOTE | 2024-07-10 07:09 | NUR ---
REPORT GIVEN TO DALILA RN AT THIS TIME
[2024-07-10 08:30] LABS: CREATININE 0.4 mg/dL (0.5-1.0); PHOSPHORUS 3.8 mg/dL (2.5-4.9); POTASSIUM 4.3 mmol/L (3.5-5.1); THYROID STIMULATING HORMONE 3.95 uIU/mL (0.36-3.74)
[2024-07-10] MEDS: FAMOTIDINE 20MG VIAL IV SCH (10:12)
[2024-07-10] MEDS: ENOXAPARIN SODIUM 40 MG/0.4 ML SYRINGE SQ SCH (10:15)
--- NOTE | 2024-07-10 10:25 | NUR ---
speech therapy- attempted bedside swallow eval but Pt unable to swallow liquids or solids at this time. Pt with hx of esophageal strictures with stent placed 05/08/24 in which spouse reports did not take and was passed through. repeat dilation was completed 06/05/24 and Pt has returned once again with inability to pass any food or liquids. pT was on puree diet and thin liquids prior to admission. recommend GI follow up for possible dilation vs stent and re-consult ST if s/s of aspiration are observed once po diet is resumed by GI. aspiration most likely secondary to inability of food to pass through esophagus. recommend NPO and follow GI recommendations. Addendum: 07/10/24 at [address] Amended: Links added.
--- NOTE | 2024-07-10 10:46 | PN ---
[facility] PROGRESS NOTE Date of Service: Jul 10, 2024 Time of Service: 10:07 69-year-old female admitted with multifocal pneumonia and pericardial effusion SUBJECTIVE: [ Hospital day 1. For 69-year-old female admitted with multifocal pneumonia and pericardial effusion. On further history with the patient as well as her spouse who is my patient at the [facility]. Patient has had problems with chronic esophageal and sounds like gastric strictures for the past six months. Patient has been seeing Dr. Ki Martinez [place] gastrointestinal specialist and Dr. Philip at the same group and has had multiple dilations including balloon dilation on about four or five occasions. Patient's weight has gone down from about just under 200 lb to less than 100 lb but she has recently gained about 27 lb back per her spouse. Patient has been in and out of the [facility] for rehab and [facility]. She had a complication and in esophageal tear that was a complication from too much pressure with a balloon dilator. I asked her if she bled significantly as she is on blood thinners but he has had no. Otherwise the patient states that she has had about a week's worth of a productive cough with brown phlegm no fevers or chills. Patient had a fall approximately six months ago in which a lot of her problems started. She has essentially been nonambulatory during this whole time. Although when she was at the retirement they did set her up and do gentle iqmxz-ab-deglad exercises and even short ambulation with the assistance patient has been bed-bound essentially. She had significant swelling to most of her body and was told this was from malnutrition that has been slowly improving over the last few weeks now that she is able to take by mouth. She has complicating factors in the sense that she fell and destroyed her implants and upper anchor for her dentures and so has had to have pureed food only. ] REVIEW OF SYSTEMS CONSTITUTIONAL: Denies fevers, chills, or night sweats. wt loss as described above of about 80lbs in 6 months NEUROLOGICAL: no n/t, no hx of strokes ENT: No hearing loss, otalgia, otorrhea, rhinitis, rhinorrhea, or sore throat.+very raspy voices CARDIOVASCULAR: Denies any exertional angina, dyspnea on exertion, orthopnea, paroxysmal nocturnal dyspnea, palpitations, life-threatening arrhythmias, claudication. GASTROINTESTINAL: See history of present illness, + esophageal stenosis and dysphagia for six months. Positive nausea and intermittent vomiting, regular caprice wel movements no diarrhea no bloody stools GENITOURINARY: Denies increased frequency, no urgency or pain with urination. Patient states he is continent to both bowel and bladder. ENDOCRINOLOGIC: Denies polyuria, polydipsia, polyphagia or heat/cold intolerances. HEMATOLOGIC: Patient did have a clot in her upper extremity a few months back. That resolved on its own per the patient's spouse ONCOLOGIC: Denies personal history of malignancy. DERMATOLOGIC: Easy bruisability with multiple ecchymotic areas to the neck. PSYCHIATRIC: Denies any suicidal or homicidal ideation. Denies hallucinations. Positive depressive symptomatology because of health decline with the last six months. PHYSICAL EXAM GENERAL APPEARANCE: The patient is awake, alert, and oriented, in no acute cardiopulmonary distress. Very cachectic appearing 69-year-old female appearing much older than stated age NEUROLOGICAL: Cranial nerves II-XII grossly intact. Motor is 4+/5 in bilateral upper and lower extremities proximal to distal. No sensory deficits. HEENT: Face is symmetric. Pupils are equal and reactive. Extraocular movements are intact. TMs are pearly riley and external auditory canals are without inflammation. NECK: Supple. No JVD. No thyromegaly. No submental, submandibular, pre- /postauricular, occipital or supraclavicular lymphadenopathy. CHEST: Normal chest expansion. LUNGS: Bilateral rhonchi noted to the mid and lower lung adams, no wheezes or rales noted. CARDIOVASCULAR: Regular. S1 and S2 normal. No appreciable rubs, murmurs or gallops. ABDOMEN: Soft, nontender, and nondistended. There is no rebound, voluntary guarding, or rigidity. : Deferred. No Manuel. EXTREMITIES: Non-edematous and not cyanotic. No clubbing. Good capillary refill. Dorsalis pedis pulse present to the right foot left foot dorsalis pedis very slightly palpable but cap refill brisk posterior tibial pulses felt x2 SKIN: No skin breakdown. Vital Signs (last 8hr) Date Time Temp Pulse Resp B/P (MAP) Pulse Ox O2 Delivery O2 Flow Rate FiO2 07/10/24 09:00 98.1 88 17 116/71 98 Room Air* 0 21 07/10/24 07:11 80 14 116/72 97 Room Air* 0 21 07/10/24 07:00 18 N/A Room Air 21 07/10/24 05:06 86 14 112/75 96 Room Air* 0 07/10/24 02:35 94 16 120/80 96 Room Air* 0 21 LABS: Laboratory: Test 07/10/24 07:56 07/10/24 02:21 07/09/24 18:53 07/09/24 18:23 Range/Units Sodium Level 139 136-145 mmol/L Potassium Level 4.3 3.5-5.1 mmol/L Chloride Level 112 H 101-111 mmol/L Carbon Dioxide Level 19 L 21-32 mmol/L Blood Urea Nitrogen 14 7-18 mg/dL Creatinine 0.4 L 0.5-1.0 mg/dL Glomerular Filtration Rate Calc 108 >90 mL/min Random Glucose 66 L 70-105 mg/dL Total Calcium 7.9 L 8.5-10.1 mg/dL Phosphorus Level 3.8 2.5-4.9 mg/dL Magnesium Level 2.00 1.80-2.40 mg/dL Thyroid Stimulating Hormone (TSH) 3.95 #H 0.36-3.74 uIU/mL Urine Color YELLOW YELLOW Urine Appearance CLEAR CLEAR Urine pH 6.0 5.0-8.0 Urine Specific [place] 1.023 1.001-1.031 Urine Protein 10 H NEGATIVE mg/dL Urine Glucose (UA) NEGATIVE NEGATIVE mg/dL Urine Ketones 10 H NEGATIVE mg/dL Urine Occult Blood +- (TRACE) H NEGATIVE Urine Nitrate 2+ H NEGATIVE Urine Bilirubin NEGATIVE NEGATIVE mg/dL Urine Urobilinogen 0.2 0.2-1.0 mg/dL Urine Leukocyte Esterase 75 H NEGATIVE Rachel/uL Urine RBC 2-5 H 0-1 /HPF Urine WBC 26-50 H 0-1 /HPF Urine Squamous Epithelial Cells RARE 0-2 /HPF Urine Bacteria MOD None Seen /HPF Influenza Type A Antigen Negative For Type A NEGATIVE Influenza Type B Antigen Negative For Type B NEGATIVE SARS-CoV-2 Antigen (Rapid) PRESUMPTIVE NEGATIVE NEGATIVE White Blood Count 4.4 L 4.8-10.8 K/uL Red Blood Count 3.00 L 4.00-5.50 MIL/uL Hemoglobin 10.0 L 12.0-16.0 g/dL Hematocrit 32.3 L 36-48 % Mean Corpuscular Volume 107.7 H 79-99 fL Mean Corpuscular Hemoglobin 33.3 H 27.0-33.0 pg Mean Corpuscular Hemoglobin Concent 31.0 L 32.0-36.0 g/dL Red Cell Distribution Width 20.9 H 11.0-15.5 % Platelet Count 260 130-400 K/uL Mean Platelet Volume 9.8 7.5-10.5 fL Immature Granulocyte % (Auto) 0.2 0-1 % Neutrophils (%) (Auto) 81.0 H 40.0-77.0 % Lymphocytes (%) (Auto) 13.3 L 21.0-51.0 % Monocytes (%) (Auto) 5.0 3.0-13.0 % Eosinophils (%) (Auto) 0.0 0.0-8.0 % Basophils (%) (Auto) 0.5 0.0-5.0 % Neutrophils # (Auto) 3.6 1.8-7.7 K/uL Lymphocytes # (Auto) 0.6 L 1.0-4.8 K/uL Monocytes # (Auto) 0.2 0.1-1.0 K/uL Eosinophils # (Auto) 0.00 0.00-0.70 K/uL Basophils # (Auto) 0.02 0.00-0.20 K/uL Absolute Immature Granulocyte (auto 0.01 0-1 K/uL Nucleated Red Blood Cells 0.0 0.0-0.19 % Red Blood Cell Morphology See comments Troponin I High Sensitivity 8 4-50 ng/L B-Type Natriuretic Peptide 94 0-100 pg/mL Lipase 11 L 16-77 U/L Current Medications Medications (Trade) Dose Ordered Sig/Jennifer Route PRN Reason Start Time Stop Time Status Last Admin Dose Admin Acetaminophen (TYLenol 650MG SUPPOSITORY) 650 mg Q6H PRN RC MILD PAIN (1-3) 07/09/24 19:30 08/08/24 19:29 Albuterol (DUOneb) 1 UDVIAL [id number] IH 07/10/24 00:00 08/09/24 00:00 07/10/24 06:59 1 UDVIAL Ceftriaxone Sodium (ROCEphine 1G INJ) 1 gm ONCE IVPB 07/09/24 19:19 07/09/24 23:59 DC 07/09/24 19:19 1 GM Enoxaparin Sodium (Lovenox) 40 mg DAILY SQ 07/10/24 09:00 08/09/24 08:59 Famotidine (Pepcid 20mg Vial) 20 mg DAILY IV 07/10/24 09:00 08/09/24 08:59 Hydralazine HCl (APRESOLine 20MG INJ) 10 mg Q6H PRN IV For:SBP above 160;DBP above 90 07/09/24 19:30 08/08/24 19:29 Lactated Ringer's 1,000 ml @ 75 mls/hr [id number] IV 07/09/24 19:30 08/08/24 19:29 07/10/24 07:53 75 MLS/HR Morphine Sulfate (morPHINE 4MG SYG) 2 mg Q4H PRN IVP SEVERE PAIN (7-10) 07/09/24 19:30 07/16/24 19:29 Ondansetron HCl (zoFRAN 4MG INJ) 4 mg Q6H PRN IV NAUSEA/VOMITING 07/09/24 19:30 08/08/24 19:29 Piperacillin Sod/ Tazobactam Sod (Zosyn 3.375gm+NS 50ml) 3.375 gm [id number] IV 07/09/24 21:00 07/19/24 20:59 07/10/24 07:53 3.375 GM Sodium Chloride 1,000 ml @ 500 mls/hr Q2H IV 07/09/24 17:34 07/10/24 01:15 DC 07/09/24 19:34 500 MLS/HR DIAGNOSTICS / RADIOLOGY: [ left upper and left lower lobe infiltrates noted on single view chest CT abdomen pelvis reveals ] ASSESSMENT: [1. Left upper and lower lobe pneumonia present on admission 2. Small pericardial effusion present on admission 3. Hypertension POA 4. Hyperlipidemia POA 5. History of anasarca POA 6. Severe protein calorie malnutrition POA 7. Bed-bound x6 months POA 8. Depression likely adjustment reaction to severe health decline over the last six months POA 9. Leukopenia POA 10. History of orthostatic hypotension resolved 11. Esophageal stricture history 12. Status post gastric stent placement? Which was passed by the patient rectally 13. History of hypothyroidism POA 14. Macrocytic anemia, he 15. History of B12 deficiency on oral replacement ] PLAN: [Patient is admitted and is presently on Zosyn 3.375 IV Q eight for her multifocal pneumonia. Would also do breathing treatments as needed around the clock while awake. Along with gentle pulmonary physiotherapy. We will go ahead and consult Cardiology regarding the small pericardial effusion from what she is essentially asymptomatic. On the CT scan he effusion looks to be maybe 10-20 mL but very small We will resume her home medications which she states are Thyroid, high blood pressure, and for high cholesterol. We will go ahead and increase her sertraline from 100-150 mg daily. Monitor her white blood cell count Consult GI regarding dysphagia and history of esophageal stricture along with weight loss. Repeat her TSH and T4. Checking B12 level ] CARMEN STOVALL MD Jul 10, 2024 10:46
[2024-07-10 11:18] LABS: BASOPHILS # (AUTO) 0.02 K/uL (0.00-0.20); BASOPHILS % (AUTO) 0.5 % (0.0-5.0); HEMATOCRIT 32.5 % (36-48); IMMATURE GRANULOCYTE ABSOLUTE 0.01 K/uL (0-1); LYMPHOCYTES # (AUTO) 0.5 K/uL (1.0-4.8); LYMPHOCYTES % (AUTO) 11.6 % (21.0-51.0); MEAN CORPUSCULAR HEMOGLOBIN 33.4 pg (27.0-33.0); MEAN CORPUSCULAR HGB CONC 31.1 g/dL (32.0-36.0); MEAN CORPUSCULAR VOLUME 107.6 fL (79-99); MONOCYTES # (AUTO) 0.2 K/uL (0.1-1.0); MONOCYTES % (AUTO) 4.1 % (3.0-13.0); NEUTROPHILS # (AUTO) 3.5 K/uL (1.8-7.7); NEUTROPHILS % (AUTO) 83.6 % (40.0-77.0); PLATELET COUNT (AUTO) 226 K/uL (130-400); RED BLOOD CELL COUNT(AUTO) 3.02 MIL/uL (4.00-5.50); RED CELL DISTRIBUTION WIDTH 20.7 % (11.0-15.5); WHITE BLOOD COUNT (AUTO) 4.1 K/uL (4.8-10.8)
--- NOTE | 2024-07-10 11:23 | NUR ---
spoke to dr. jett over phone, stated he dilip see patient later today, keep patient npo and consent for egd at noon patient resting in bed, call light in reach
[2024-07-10 12:34] LABS: LYMPHOCYTES % (MANUAL) 8 % (22-44); MAN.DIFF COMMENT-IMPRESSION MANUAL DIFFERENTIAL; REACTIVE LYMPHOCYTES 1 % (0-0); SEGMENTED NEUTROPHILS % 91 % (40-70); TOTAL CELLS COUNTED 100
[2024-07-10 12:36] LABS: PLATELET MORPHOLOGY COMMENT ADEQUATE; WBC MORPHOLOGY NORMAL
[2024-07-10 13:26] LABS: ALBUMIN 1.4 g/dL (3.5-5.0); BILIRUBIN,DIRECT 0.1 mg/dL (0.0-0.3); BILIRUBIN,TOTAL 0.2 mg/dL (0.2-1.0)
--- NOTE | 2024-07-10 14:46 | NUR ---
MDP CM SPOKE TO PT'S MAG BAKER INITIAL ASSESSMENT DONE. PER SPOUSE PT CAME FROM [facility] THEN ADMITTED TO [facility]. PRIOR TO WAS INDEPENDENT THEN BECAME DEBILATED AND NOW ASSIST WITH ADLS. PRIOR TO [facility] LIVES AT HOME WITH SPOUSE. AT HOME THEY HAVE A WALKER, WHEELCHAIR, RAMP, BEDSIDE COMMODE, CANE, [facility] GOES TO THE HOUSE FOR SKILLED NURSE VISIT ONCE A WEEK AND PT 3X/WK. FEELS SAFE TO GO BACK HOME, SPOUSE ABLE TO ASSIST WITH TRANSPORTATION AND NEEDS NECESSARY. USES [employer] [facility]. DISCUSSED POSSIBLE RETURN TO [facility] TO CONTINUE TREATMENTS PENDING MD RECOMMENDATIONS, SPOUSE AGREEABLE, CONSENT SIGNED JJ FOR [facility] AND [facility] [employer] WITNESSED BY [facility] [employer]. DCP SNF ONCE ACCEPTED, PENDING MD ORDER AND CM TO ARRANGE, WILL NEED EMS FOR TRANSPORT ONCE READY TO DC. CM TO CONTINUE TO FOLLOW UP. Addendum: 07/10/24 at 1451 by PANCHO SHELTON LVN CM Amended: Links added.
--- NOTE | 2024-07-10 14:50 | NUR ---
SANDRA NOTE: [facility] PENDING RE-ACCEPTANCE CM SPOKE TO SYMONE CARTER, VERIFIED PT WAS ADMITTED TO THEIR FACILITY PRIOR TO TRANSFERING TO [facility] [place], PT WAS THERE SHORT TERM, PER REP NO NEED NEW PASRR. CM TO SEND CLINICALS AND ARRANGE EMS ONCE MD GIVE ORDER AND PT READY TO DC. CM TO CONTINUE TO FOLLOW UP. Addendum: 07/10/24 at 1451 by PANCHO SHELTON LVN CM Amended: Links added.
--- NOTE | 2024-07-10 16:40 | HMCSR ---
APPROVED REPORT EXAM: Two-dimensional and M-mode echocardiogram with Doppler and color Doppler. INDICATION ICD: small pericardial effusion by ct 2D Dimensions RVDd2.6 cmLVEF(%)75.0 (>50%)LVED Vol(simp.)48.7 mL IVSd0.8 (0.7-1.1cm)FS(%)43 %LVES Vol(simp.)13.7 mL LVDd3.4 (3.8-5.6cm)LA (2D)1.9 (1.6-4.0cm)LVEF(%, simp.)72 % PWd0.7 (0.7-1.1cm)Ao Root(2D)3.2 (2.0-3.7cm)LA ESV INDEX (BP)13.23 mL/m2 LVDs2.0 (2.5-4.0cm)LVOT diam1.9 (1.8-2.4cm) Deformation Strain Apical 4-20.0 % Apical 2-19.0 % Apical 3-21.0 % Global Strain-20.0 % M-Mode Dimensions EPSS0.8 cm LA (MM)1.4 (1.6-4.0cm) Ao Root(MM)3.5 (2.0-3.7cm) Aortic Valve AoV Vmax1.7 m/Breanne Peak GR12.1 mmHgLVOT Vmax1.4 m/s AoV VTI0.4 mAo Mean GR7.8 mmHgLVOT VTI0.29 m ISMAEL (VMAX)2.2 cm2AVA (VTI) 2.2 cm2 Mitral Valve MV E Vmax62.3 cm/sDECEL Mlvl155 ms MV A Vmax83.7 cm/sP 1/2 T51 ms E/A ratio0.7MVA (PHT)4.3 cm2 TDI E/E' Rjeueg19.6 Tricuspid Valve TR Vmax2.6 m/sRVSP26.1 mmHg TR Peak GR28.0 mmHg Left Ventricle The left ventricle was normal in size. No regional wall motion abnormalities noted. Mild concentric l eft ventricular hypertrophy. Left ventricular systolic function is normal, estimated LVEF 60-65%. Sta ge I diastolic dysfunction. Right Ventricle The right ventricle is normal size. The right ventricular systolic function is normal. GS -22%. Atria The left atrium size is normal. The right atrium size is normal. Aortic Valve Aortic valve is trileaflet. The leaflets are mildly thickened and calcified. Trace aortic regurgitati on. There is no aortic valvular stenosis. Mitral Valve The mitral valve is normal in structure and function. The leaflets are mildly thickened. Trace mitral regurgitation. There is no mitral valve stenosis. Tricuspid Valve The tricuspid valve is normal in structure. Mild tricuspid regurgitation. RVSP is 28 mm Hg. Pulmonic Valve Pulmonic valve is not well visualized. Great Vessels The aortic root is normal in size. The IVC is normal in size and collapses >50% with inspiration. Pericardium Trivial circumferential pericardial effusion. No hemodynamic significance. Large left-sided pleural e ffusion. Conclusion The cardiac chambers are normal in size. Mild concentric left ventricular hypertrophy. No regional wall motion abnormalities noted. Left ventricular systolic function is normal, estimated LVEF 60-65%. Stage I diastolic dysfunction. Trace aortic regurgitation. Trace mitral regurgitation. Mild tricuspid regurgitation. RVSP is 28 mm Hg. Trivial circumferential pericardial effusion. No hemodynamic significance. Large left-sided pleural effusion.
--- NOTE | 2024-07-10 18:09 | NUR ---
CALLED AND GAVE REPORT TO JERRY CARRASQUILLO RN LET HER KNOW ABOUT PATIENTS WOUNDS ON LEFT SHOULDER, RIGHT [place], RIGHT FOOT AND SACRAL AREA
[2024-07-11] VITALS (19 sets, daily range): BP systolic 92–127; BP diastolic 51–82; PULSE 80–98; RESP 15–18; TEMP 97.9–99; O2SAT 94–97
[2024-07-11 03:57] LABS: BASOPHILS # (AUTO) 0.02 K/uL (0.00-0.20); BASOPHILS % (AUTO) 0.5 % (0.0-5.0); HEMATOCRIT 26.3 % (36-48); IMMATURE GRANULOCYTE ABSOLUTE 0.01 K/uL (0-1); LYMPHOCYTES # (AUTO) 0.6 K/uL (1.0-4.8); LYMPHOCYTES % (AUTO) 15.7 % (21.0-51.0); MEAN CORPUSCULAR HEMOGLOBIN 33.1 pg (27.0-33.0); MEAN CORPUSCULAR HGB CONC 31.2 g/dL (32.0-36.0); MONOCYTES # (AUTO) 0.2 K/uL (0.1-1.0); MONOCYTES % (AUTO) 5.9 % (3.0-13.0); NEUTROPHILS # (AUTO) 2.9 K/uL (1.8-7.7); NEUTROPHILS % (AUTO) 77.6 % (40.0-77.0); PLATELET COUNT (AUTO) 215 K/uL (130-400); RED BLOOD CELL COUNT(AUTO) 2.48 MIL/uL (4.00-5.50); RED CELL DISTRIBUTION WIDTH 20.4 % (11.0-15.5); WHITE BLOOD COUNT (AUTO) 3.7 K/uL (4.8-10.8)
[2024-07-11 04:23] LABS: CREATININE 0.5 mg/dL (0.5-1.0); POTASSIUM 3.3 mmol/L (3.5-5.1); THYROID STIMULATING HORMONE 4.34 uIU/mL (0.36-3.74)
--- NOTE | 2024-07-11 08:58 | HMCIMG ---
Exam Type: CHEST 1VW Clinical Information: pna MYCHAL, LLL Comparison: July 09, 2024 Findings and impression: Improvement in the infiltrate left side when compared to prior exam. No other interval changes.
[2024-07-11] MEDS: SERTraline HCL 50 MG TABLET PO SCH (09:00)
--- NOTE | 2024-07-11 10:07 | CONS ---
[facility] CONSULTATION NOTE Date Patient Seen: Jul 11, 2024 Time of Visit: 11:07 Supervising Physician: [Dr. Tate] Reason for Consultation: [Pleural effusion] Primary Care Physician: [[facility]] Outpatient Specialists: [ ] Inpatient Consults: [BIS] PROBLEM LIST: Left upper and lower lobe pneumonia, POA Left pleural effusion, moderate Small pericardial effusion, POA Hypertension POA Hyperlipidemia POA Severe protein calorie malnutrition in setting of gastric bypass Failure to thrive Depression, POA Leukopenia POA Esophageal stricture history s/p esophageal stent placement Hypothyroidism POA Macrocytic anemia with B12 deficiency Plan: Start Zosyn and doxycycline for HCAP coverage since patient came from [facility] Obtain sputum culture, order procalcitonin Consider MBSS once cleared from GI for esophageal obstruction Consider initiating lasix and spironolactone once able to tolerate oral diet Conservative management and monitoring of pleural effusion GI for management of esophageal stricture Disposition per primary HPI: [This is a 69-year-old female with a history of hypertension, hyperlipidemia, hypothyroidism and COPD who presented to the ED after being 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 She has a history of esophageal obstruction s/p multiple dilations and stenting. States was having dysphagia and difficulty passing solid foods but was able to tolerate liquids. Her labs on admission were grossly unremarkable with a WBC of 4, creatinine of 0.4, negative COVID and flu and normal troponin, TSH, and BNP. She did have a urine analysis with some leukocyte esterase, pending urine culture. She continues on LR at 75 mL an hour and Zosyn. Her CXR shows left-sided pneumoniae with a pleural effusion CT of the chest suggests left-sided pneumoniae which could be due to aspiration. Patient states has not vomited recently. Also noted was a bzim-[id number] sized left pleural effusion as well as a small pericardial effusion. We are consulted for evaluation of the pleural effusion. Patient states he has not had a thoracentesis in the past, she is currently on room air in no acute respiratory stress. Continues on nebulized solution as needed. CT images were reviewed by Dr. Tate, and recommended conservative management for now. ] PAST MEDICAL HX: see above PAST SURGICAL HX: noncontributory SOCIAL HISTORY: No tobacco, ETOH, or illicit drug use Coded Allergies: No Known Allergies (Unverified Allergy, Unknown, 05/18/24) REVIEW OF SYSTEMS: 12 point ROS reviewed with patient. Pertinent positives mentioned above. Otherwise negative. PHYSICAL EXAM: GENERAL: alert, weak, awake oriented x 3, moderate to severe scoliosis HEENT: EOMI, Sclera non icteric, moist mucosa NECK: Supple, no JVD, trachea midline LUNGS: Clear breath sounds bilaterally. No wheezes HEART: Regular rate and rhythm. Normal S1 and S2, without murmurs ABD: Abdomen soft, nontender. Bowel sounds present EXT: No clubbing cyanosis or edema NEURO: Alert and oriented to person, follows commands Vital Signs (last 8hr) Date Time Temp Pulse Resp B/P (MAP) Pulse Ox O2 Delivery O2 Flow Rate FiO2 07/11/24 07:45 98.4 84 16 127/77 93 Room Air 07/11/24 06:38 18 N/A Room Air 21 07/11/24 06:38 98 18 07/11/24 03:19 99.0 92 16 92/68 92 Room Air LABS: Hematology Labs: Test 07/11/24 03:28 07/10/24 11:02 Range/Units White Blood Count 3.7 L 4.8-10.8 K/uL Red Blood Count 2.48 L 4.00-5.50 MIL/uL Hemoglobin 8.2 L 12.0-16.0 g/dL Hematocrit 26.3 L 36-48 % Mean Corpuscular Volume 106.0 H 79-99 fL Mean Corpuscular Hemoglobin 33.1 H 27.0-33.0 pg Mean Corpuscular Hemoglobin Concent 31.2 L 32.0-36.0 g/dL Red Cell Distribution Width 20.4 H 11.0-15.5 % Platelet Count 215 130-400 K/uL Mean Platelet Volume 10.1 7.5-10.5 fL Immature Granulocyte % (Auto) 0.3 0-1 % Neutrophils (%) (Auto) 77.6 H 40.0-77.0 % Lymphocytes (%) (Auto) 15.7 L 21.0-51.0 % Monocytes (%) (Auto) 5.9 3.0-13.0 % Eosinophils (%) (Auto) 0.0 0.0-8.0 % Basophils (%) (Auto) 0.5 0.0-5.0 % Neutrophils # (Auto) 2.9 1.8-7.7 K/uL Lymphocytes # (Auto) 0.6 L 1.0-4.8 K/uL Monocytes # (Auto) 0.2 0.1-1.0 K/uL Eosinophils # (Auto) 0.00 0.00-0.70 K/uL Basophils # (Auto) 0.02 0.00-0.20 K/uL Absolute Immature Granulocyte (auto 0.01 0-1 K/uL Nucleated Red Blood Cells 0.0 0.0-0.19 % Segmented Neutrophils % 91 H 40-70 % Lymphocytes % (Manual) 8 L 22-44 % Differential Comment MANUAL DIFFERENTIAL Reactive Lymphocytes 1 H 0-0 % White Cell Morphology Comment NORMAL Platelet Morphology Comment ADEQUATE Red Blood Cell Morphology See comments Chemistry Labs: Test 07/11/24 03:28 07/10/24 23:19 07/10/24 11:02 07/10/24 07:56 Range/Units Sodium Level 144 136-145 mmol/L Potassium Level 3.3 L 3.5-5.1 mmol/L Chloride Level 112 H 101-111 mmol/L Carbon Dioxide Level 23 21-32 mmol/L Blood Urea Nitrogen 12 7-18 mg/dL Creatinine 0.5 0.5-1.0 mg/dL Glomerular Filtration Rate Calc 103 >90 mL/min Random Glucose 83 70-105 mg/dL Total Calcium 7.7 L 8.5-10.1 mg/dL Thyroid Stimulating Hormone (TSH) 4.34 H 0.36-3.74 uIU/mL Whole Blood Glucose 88 70-110 MG/DL Total Bilirubin 0.2 0.2-1.0 mg/dL Direct Bilirubin 0.1 0.0-0.3 mg/dL Aspartate Amino Transf (AST/SGOT) 26 10-37 U/L Alanine Aminotransferase (ALT/SGPT) 20 12-78 U/L Alkaline Phosphatase 63 50-136 U/L Total Protein 5.0 L 6.0-8.3 g/dL Albumin 1.4 L 3.5-5.0 g/dL Vitamin B12 Level 1930 H 193-986 pg/mL Phosphorus Level 3.8 2.5-4.9 mg/dL Magnesium Level 2.00 1.80-2.40 mg/dL Test 07/09/24 18:23 Range/Units Troponin I High Sensitivity 8 4-50 ng/L B-Type Natriuretic Peptide 94 0-100 pg/mL Lipase 11 L 16-77 U/L DIAGNOSTICS / RADIOLOGY RESULTS: [ ] PLAN NEURO: Minimize central acting medications as possible. Maintain fall precautions, adequate lighting during the day PULMONARY: Supplemental 02 as needed. Maintain aspiration precautions at all times CARDIOVASCULAR: Follow hemodynamics. Vital signs per facility protocol GI & NUTRITION: Continue with nutritional support. Continue stool softeners and laxatives as needed. KIDNEYS & ELECTROLYTES: Strict monitoring of intake, output and overall fluid balance. Avoid nephrotoxic medications to the extent possible. Medications to be dosed according to renal function. Monitor electrolytes and replace as needed ENDOCRINE: Maintain blood glucose between 100-180 at all times. Hypoglycemia protocol in place INFECTIOUS DISEASE: Trend temperature, WBC and procalcitonin level Follow cultures, deescalate antibiotics as soon as possible. Panculture if new onset fever ONCOLOGY/HEMATOLOGY/COAGULATION: Monitor for s/s of bleeding Monitor hemoglobin, coagulation studies as needed SKIN: Pressure ulcer prevention per facility protocol Specialty mattress ORTHO/REHAB: Continue PT/OT Prophylaxis: Continue GI and DVT prophylaxis Code Status: Full Resuscitation Disposition: TBD Other: Total patient care time exceeds 35 minutes excluding all procedures. RUMA YOON Jul 11, 2024 10:07
--- NOTE | 2024-07-11 13:44 | NUR ---
PT WAS TAKEN TO GI LAB AND WENT WITH PATIENT TO SIGN ANESTHESIA CONSENT.
--- NOTE | 2024-07-11 14:30 | NUR ---
DR. KERNS CALLED AND WANTED TO KNOW IF DR. WALDEN HAD CLEARED THE PATIENT FOR EGD. DR. WALDEN WAS CALLED AND WAS ADVISED THAT THE PATIENT HAD AN ECHO WHICH WAS NORMAL AND THAT THE EFFUSION WAS PULMONARY NOT CARDIAC. DR. KERNS WAS ADVISED AND PT IS TO CONTINUE WITH EGD.
[2024-07-11] MEDS ORDERED: proPOFol 10 MG/ML 20ML VIAL IV ONE ×2 (14:38→14:55)
[2024-07-11] MEDS ORDERED: LIDOCAINE PF 100MG/5ML (2%) SYRINGE 5ML ONE (14:38)
--- NOTE | 2024-07-11 15:40 | NUR ---
PT WAS RETURNED TO ROOM AND ASKED THE RECOVERY STAFF WHAT HAD DR. KERNS DONE TO PATIENT AND RECOVERY STAFF SAID THAT DR. KERNS'S REPORT WAS NOT IN THE CHART AND NOT AWARE OF WHAT HAD ACTUALLY BEEN DONE. REQUESTED TO TALK TO DR. KERNS AND RECOVERY ROOM STAFF TO NOTIFY GI LAB STAFF ABOUT REQUESTING TO TALK TO DR. KERNS.
[2024-07-11] MEDS: morPHINE 2 MG SYG IVP PRN (18:21)
[2024-07-11] MEDS: DEXTROSE 5%-LACTATED RINGERS 1,000 ML IV SCH (19:53)
--- NOTE | 2024-07-11 20:07 | PN ---
[facility] PROGRESS NOTE Date of Service: Jul 11, 2024 Time of Service: 20:00 69-year-old female admitted with multifocal pneumonia and pleural effusion SUBJECTIVE: [ Hospital day 1. For 69-year-old female admitted with multifocal pneumonia and pericardial effusion. On further history with the patient as well as her spouse who is my patient at the [facility]. Patient has had problems with chronic esophageal and sounds like gastric strictures for the past six months. Patient has been seeing Dr. Ki Martinez [place] [facility] specialist and Dr. Philip at the same group and has had multiple dilations including balloon dilation on about four or five occasions. Patient's weight has gone down from about just under 200 lb to less than 100 lb but she has recently gained about 27 lb back per her spouse. Patient has been in and out of the [facility] for rehab and [facility]. She had a complication and in esophageal tear that was a complication from too much pressure with a b alloon dilator. I asked her if she bled significantly as she is on blood thinners but he has had no. Otherwise the patient states that she has had about a week's worth of a productive cough with brown phlegm no fevers or chills. Patient had a fall approximately six months ago in which a lot of her problems started. She has essentially been nonambulatory since this fall. Although when she was at the [place] [facility] they did set her up and do gentle siihy-vo-[id number] exercises and even short ambulation with the assistance patient has been bed- bound essentially. She had significant swelling to most of her body and was told this was from malnutrition that has been slowly improving over the last few weeks now that she is able to take by mouth. She has complicating factors in the sense that she fell and destroyed her implants and upper anchor for her dentures and so has had to have pureed food only 07/11/2024: No significant interval events reported by nursing staff. Patient reports no pain or shortness for breath. Her morning labs were reviewed] REVIEW OF SYSTEMS CONSTITUTIONAL: Denies fevers, chills, or night sweats. wt loss as described above of about 80lbs in 6 months NEUROLOGICAL: no n/t, no hx of strokes ENT: No hearing loss, otalgia, otorrhea, rhinitis, rhinorrhea, or sore throat .+very raspy voices CARDIOVASCULAR: Denies any exertional angina, dyspnea on exertion, orthopnea, paroxysmal nocturnal dyspnea, palpitations, life-threatening arrhythmias, claudication. GASTROINTESTINAL: See history of present illness, + esophageal stenosis and dysphagia for six months. Positive nausea and intermittent vomiting, regular bowel movements no diarrhea no bloody stools GENITOURINARY: Denies increased frequency, no urgency or pain with urination. Patient states he is continent to both bowel and bladder. ENDOCRINOLOGIC: Denies polyuria, polydipsia, polyphagia or heat/cold intolerances. HEMATOLOGIC: Patient did have a clot in her upper extremity a few months back. That resolved on its own per the patient's spouse, Cedrick. ONCOLOGIC: Denies personal history of malignancy. DERMATOLOGIC: Easy bruisability with multiple ecchymotic areas to the neck. PSYCHIATRIC: Denies any suicidal or homicidal ideation. Denies hallucinations. Positive depressive symptomatology because of health decline with the last six months. PHYSICAL EXAM GENERAL APPEARANCE: The patient is awake, alert, and oriented, in no acute cardiopulmonary distress. Very cachectic appearing 69-year-old female appearing much older than stated age NEUROLOGICAL: Cranial nerves II-XII grossly intact. Motor is 4+/5 in bilateral upper and lower extremities proximal to distal. No sensory deficits. HEENT: Face is symmetric. Pupils are equal and reactive. Extraocular movements are intact. TMs are pearly riley and external auditory canals are without inflammation. NECK: Supple. No JVD. No thyromegaly. No submental, submandibular, pre- /postauricular, occipital or supraclavicular lymphadenopathy. CHEST: Normal chest expansion. LUNGS: Bilateral rhonchi noted to the mid and lower lung adams, no wheezes or rales noted. CARDIOVASCULAR: Regular. S1 and S2 normal. No appreciable rubs, murmurs or gallops. ABDOMEN: Soft, nontender, and nondistended. There is no rebound, voluntary guarding, or rigidity. : Deferred. No Manuel. EXTREMITIES: Non-edematous and not cyanotic. No clubbing. Good capillary re fill. Dorsalis pedis pulse present to the right foot left foot dorsalis pedis very slightly palpable but cap refill brisk posterior tibial pulses felt x2 SKIN: No skin breakdown. Vital Signs (last 8hr) Date Time Temp Pulse Resp B/P (MAP) Pulse Ox O2 Delivery O2 Flow Rate FiO2 4/6/25 19:13 82 18 N/A Room Air 21 07/11/24 19:12 98.8 83 16 118/56 98 Room Air 07/11/24 19:12 82 18 07/11/24 16:44 98.1 85 16 114/67 96 Room Air 07/11/24 15:38 97.9 92 15 124/82 98 Room Air 21 07/11/24 15:33 91 16 121/80 98 Room Air 21 07/11/24 15:28 87 16 113/82 98 Room Air 21 07/11/24 15:23 90 15 112/69 98 Room Air 21 07/11/24 15:18 89 16 109/79 100 Nonrebreathing Mask 10.0 100 07/11/24 15:13 83 15 106/82 100 Nonrebreathing Mask 10.0 100 07/11/24 15:08 97.9 83 15 92/51 100 Nonrebreathing Mask 10.0 100 07/11/24 14:40 Mask 07/11/24 14:40 Mask 10.0 LABS: Laboratory: Test 07/11/24 19:23 07/11/24 03:28 07/10/24 11:02 07/10/24 07:56 Range/Units Whole Blood Glucose 69 L 70-110 MG/DL White Blood Count 3.7 L 4.8-10.8 K/uL Red Blood Count 2.48 L 4.00-5.50 MIL/uL Hemoglobin 8.2 L 12.0-16.0 g/dL Hematocrit 26.3 L 36-48 % Mean Corpuscular Volume 106.0 H 79-99 fL Mean Corpuscular Hemoglobin 33.1 H 27.0-33.0 pg Mean Corpuscular Hemoglobin Concent 31.2 L 32.0-36.0 g/dL Red Cell Distribution Width 20.4 H 11.0-15.5 % Platelet Count 215 130-400 K/uL Mean Platelet Volume 10.1 7.5-10.5 fL Immature Granulocyte % (Auto) 0.3 0-1 % Neutrophils (%) (Auto) 77.6 H 40.0-77.0 % Lymphocytes (%) (Auto) 15.7 L 21.0-51.0 % Monocytes (%) (Auto) 5.9 3.0-13.0 % Eosinophils (%) (Auto) 0.0 0.0-8.0 % Basophils (%) (Auto) 0.5 0.0-5.0 % Neutrophils # (Auto) 2.9 1.8-7.7 K/uL Lymphocytes # (Auto) 0.6 L 1.0-4.8 K/uL Monocytes # (Auto) 0.2 0.1-1.0 K/uL Eosinophils # (Auto) 0.00 0.00-0.70 K/uL Basophils # (Auto) 0.02 0.00-0.20 K/uL Absolute Immature Granulocyte (auto 0.01 0-1 K/uL Nucleated Red Blood Cells 0.0 0.0-0.19 % Sodium Level 144 136-145 mmol/L Potassium Level 3.3 L 3.5-5.1 mmol/L Chloride Level 112 H 101-111 mmol/L Carbon Dioxide Level 23 21-32 mmol/L Blood Urea Nitrogen 12 7-18 mg/dL Creatinine 0.5 0.5-1.0 mg/dL Glomerular Filtration Rate Calc 103 >90 mL/min Random Glucose 83 70-105 mg/dL Total Calcium 7.7 L 8.5-10.1 mg/dL Procalcitonin < 0.05 L 0.05-0.5 ng/mL Thyroid Stimulating Hormone (TSH) 4.34 H 0.36-3.74 uIU/mL Free Thyroxine (T4) Direct 0.76 0.76-1.46 ng/dL Free Triiodothyronine (T3) pg/mL 0.62 L 2.18-3.98 pg/mL Segmented Neutrophils % 91 H 40-70 % Lymphocytes % (Manual) 8 L 22-44 % Differential Comment MANUAL DIFFERENTIAL Reactive Lymphocytes 1 H 0-0 % White Cell Morphology Comment NORMAL Platelet Morphology Comment ADEQUATE Red Blood Cell Morphology See comments Total Bilirubin 0.2 0.2-1.0 mg/dL Direct Bilirubin 0.1 0.0-0.3 mg/dL Aspartate Amino Transf (AST/SGOT) 26 10-37 U/L Alanine Aminotransferase (ALT/SGPT) 20 12-78 U/L Alkaline Phosphatase 63 50-136 U/L Total Protein 5.0 L 6.0-8.3 g/dL Albumin 1.4 L 3.5-5.0 g/dL Vitamin B12 Level 1930 H 193-986 pg/mL Phosphorus Level 3.8 2.5-4.9 mg/dL Magnesium Level 2.00 1.80-2.40 mg/dL Test 07/10/24 02:21 Range/Units Urine Color YELLOW YELLOW Urine Appearance CLEAR CLEAR Urine pH 6.0 5.0-8.0 Urine Specific [place] 1.023 1.001-1.031 Urine Protein 10 H NEGATIVE mg/dL Urine Glucose (UA) NEGATIVE NEGATIVE mg/dL Urine Ketones 10 H NEGATIVE mg/dL Urine Occult Blood +- (TRACE) H NEGATIVE Urine Nitrate 2+ H NEGATIVE Urine Bilirubin NEGATIVE NEGATIVE mg/dL Urine Urobilinogen 0.2 0.2-1.0 mg/dL Urine Leukocyte Esterase 75 H NEGATIVE Rachel/uL Urine RBC 2-5 H 0-1 /HPF Urine WBC 26-50 H 0-1 /HPF Urine Squamous Epithelial Cells RARE 0-2 /HPF Urine Bacteria MOD None Seen /HPF Current Medications Medications (Trade) Dose Ordered Sig/Jennifer Route PRN Reason Start Time Stop Time Status Last Admin Dose Admin Acetaminophen (TYLenol 650MG SUPPOSITORY) 650 mg Q6H PRN RC MILD PAIN (1-3) 07/09/24 19:30 08/08/24 19:29 Albuterol (DUOneb) 1 UDVIAL [id number] IH 07/10/24 00:00 08/09/24 00:00 07/11/24 19:10 1 UDVIAL Ceftriaxone Sodium (ROCEphine 1G INJ) 1 gm ONCE IVPB 07/09/24 19:19 07/09/24 23:59 DC 07/09/24 19:19 1 GM Dextrose/Lactated Ringer's 1,000 ml @ 50 mls/hr Q20H IV 07/11/24 20:00 08/10/24 19:59 07/11/24 19:53 50 MLS/HR Enoxaparin Sodium (Lovenox) 40 mg DAILY SQ 07/10/24 09:00 07/10/24 19:01 DC 07/10/24 10:15 40 MG Famotidine (Pepcid 20mg Vial) 20 mg DAILY IV 07/10/24 09:00 08/09/24 08:59 07/11/24 09:00 20 MG Hydralazine HCl (APRESOLine 20MG INJ) 10 mg Q6H PRN IV For:SBP above 160;DBP above 90 07/09/24 19:30 08/08/24 19:29 Lactated Ringer's 1,000 ml @ 75 mls/hr [id number] IV 07/09/24 19:30 07/11/24 19:49 DC 07/10/24 21:39 75 MLS/HR Morphine Sulfate (morPHINE 2MG SYG) 2 mg Q4H PRN IVP SEVERE PAIN (7-10) 07/10/24 19:30 07/16/24 19:29 07/11/24 18:21 2 MG Morphine Sulfate (morPHINE 4MG SYG) 2 mg Q4H PRN IVP SEVERE PAIN (7-10) 07/09/24 19:30 07/10/24 19:01 DC Ondansetron HCl (zoFRAN 4MG INJ) 4 mg Q6H PRN IV NAUSEA/VOMITING 07/09/24 19:30 08/08/24 19:29 Piperacillin Sod/ Tazobactam Sod (Zosyn 3.375gm+NS 50ml) 3.375 gm [id number] IV 07/09/24 21:00 07/19/24 20:59 07/11/24 13:03 3.375 GM Sertraline HCl (ZOloft 50 mg tab) 150 mg DAILY PO 07/11/24 09:00 08/10/24 08:59 Sodium Chloride 1,000 ml @ 500 mls/hr Q2H IV 07/09/24 17:34 07/10/24 01:15 DC 07/09/24 19:34 500 MLS/HR DIAGNOSTICS / RADIOLOGY: [ ] ASSESSMENT: [1. Left upper and lower lobe pneumonia present on admission 2. Trivial pericardial effusion present on admission 3. Hypertension POA 4. Hyperlipidemia POA 5. History of anasarca POA 6. Severe protein calorie malnutrition POA 7. Bed-bound x6 months POA 8. Depression likely adjustment reaction to severe health decline over the last six months POA 9. Leukopenia POA 10. History of orthostatic hypotension resolved 11. Esophageal stricture history 12. Status post gastric stent placement? Which was passed by the patient rectally 13. History of hypothyroidism POA 14. Macrocytic anemia, he 15. History of B12 deficiency on oral replacement 16. Large pleural effusion on left ] PLAN: [Continue Zosyn for multifocal pneumonia. Would also do breathing treatments as needed around the clock while awake. Along with gentle pulmonary physiotherapy. We will go ahead and consult Cardiology regarding the small pericardial effusion from what she is essentially asymptomatic. Patient is CT scan was discussed with Cardiology and it turns out that the patient actually has a larger pleural effusion which may have been what the radiologist was mistaken for pericardial effusion the pericardial effusion is clinically insignificant. We will resume her home medications which she states are Thyroid, high blood pressure, and for high cholesterol. We will go ahead and increase her sertraline from 100-150 mg daily. Monitor her white blood cell count Consult GI regarding dysphagia and history of esophageal stricture along with weight loss. Repeat her TSH and T4. Checking B12 level ] CARMEN STOVALL MD Jul 11, 2024 20:07
--- NOTE | 2024-07-11 22:08 | CONS ---
GASTROINTESTINAL CONSULTATION REFERRING PHYSICIAN: Dr. Ceballos. REASON FOR CONSULTATION: Dysphagia, weight loss, heartburn, esophageal stricture and acute anemia. HISTORY OF PRESENT ILLNESS: The patient is a 69-year-old female with history of hypertension, hypothyroidism, hyperlipidemia, depression and anxiety, also a history of cardiomyopathy, who has undergone a gastric bypass surgery in the past and who is now admitted with dysphagia, weight loss, acute anemia with chronic heartburn and history of esophageal stricture, for which GI evaluation and management are sought. According to the patient, she has been having dysphagia and has multiple dilations. She was doing well at home with pureed foods but a few days ago, she ate thicker than usual oatmeal and this resulted in return of her dysphagia. She reports she has continued to lose weight and she has been having heartburn also. The patient had esophageal dilation done less than one month ago and an esophageal stent was placed because she had an esophageal tear during the procedure. The patient now presents with dysphagia as noted above and denies any nausea, vomiting but reports regurgitation of saliva. She has no melena, hematochezia, constipation, or diarrhea. She has lost weight over 73 pounds in the last 6 months, unintentionally. She denies history of caustic ingestion or pill esophagitis. She has no family history of esophageal disorders, colon cancer, colon polyps, or IBD. ALLERGIES: No known drug allergies. PAST MEDICAL AND SURGICAL HISTORY: See above. Also history of hypertension, hypothyroidism, hyperlipidemia, chronic constipation, cardiomyopathy, brain injury, esophageal stricture/stenosis, and questionable Crohn's disease. She has at this time pericardial effusion and anasarca with multifocal pneumonia too. She denies history of CAD, IL, CVA, seizure disorder, PUD, or asthma. MEDICATIONS: Sertraline, morphine, famotidine, enoxaparin, albuterol, IV Zosyn, hydralazine, acetaminophen, ceftriaxone. SOCIAL HISTORY: Denies history of alcohol use, tobacco use, or illicit drug use. FAMILY HISTORY: No family history of esophageal disorder, colon cancer, stomach cancer, or IBD. REVIEW OF SYSTEMS: CONSTITUTIONAL: The patient reports dysphagia, weight loss, heartburn and nonambulatory status. She denies fever, chills, or gross GI bleed. DERMATOLOGY: She has easy bruising. Denies any rash or excessive dry skin. ENT: No ear pain, tinnitus, hearing loss, nasal congestion, rhinorrhea, sore throat, or voice changes. RESPIRATORY: No wheeze, rhinorrhea, epistaxis, chest congestion, or cough. CARDIOVASCULAR: No chest pain, palpitation, or leg swelling. GENITOURINARY: No dysuria, hematuria, urgency, or frequency. GASTROINTESTINAL: She has been having dysphagia. Reports weight loss, heartburn but no gross GI bleed, nausea, vomiting, but she admits to regurgitation. MUSCULOSKELETAL: No joint pain, joint swelling, or backache. NEUROLOGY: No tingling, numbness, vision changes or hearing loss, but she has dysphagia as noted above. PSYCHIATRY: Admits to history of depression and anxiety. No suicidal plans or ideation. PHYSICAL EXAMINATION: GENERAL: The patient is a 69-year-old female who appears her stated age, seen resting in bed in the emergency room and is in no acute respiratory distress. VITAL SIGNS: Blood pressure 113/64, heart rate 94, respirations 16, temperature 98.1 degrees Fahrenheit. SKIN: Warm, dry. No active dermatosis. HEENT: The patient's head is normocephalic, atraumatic. Pupils reactive, sclerae nonicteric. Oral mucosa was moist. No obvious lesion, no blood noted. Nasal mucosa showed no epistaxis. No blurry vision. NECK: No mass or jugular venous distention, no lymphadenopathy, no thyromegaly. LUNGS: Clear to auscultation bilaterally. HEART: S1, S2. No obvious murmurs, rubs, or gallops. ABDOMEN: Mildly protuberant, soft with active bowel sounds. No hepatomegaly or masses. Tenderness noted in the epigastrium and bilateral upper and lower abdominal quadrant with mild guarding. No rebound tenderness. EXTREMITIES: No cyanosis, clubbing. Edema noted in bilateral lower extremities. RECTAL: Deferred. LABORATORY DATA: WBC earlier today was 4.1, hemoglobin 10.1, hematocrit 32.5, MCV of 107.6, platelet count of 226. Serum chemistry reveals sodium 139, potassium 4.3, chloride 112, CO2 of 19, BUN of 14, creatinine 0.4, GFR 108, random glucose 66, total calcium of 7.9. Phosphorus of 3.8, magnesium level of 2, total bilirubin of 0.2, direct bilirubin of 0.1. AST 26, ALT 20, alkaline phosphatase of 63, total protein of 5, albumin of 1.4. Vitamin B12 1930. TSH 3.95. DIAGNOSTIC DATA: CT scan of chest and abdomen done one day ago showed small to medium size left pleural effusion, extensive lingula and left lower lobe opacities and pulmonary parenchymal changes suggestive of right upper lobe and right lower lobe opacifications. The patient also had normal-appearing liver, spleen, gallbladder, pancreas, adrenal glands. The kidneys too appeared normal. No free air noted in the abdomen or pelvis. She has calcific plaque along the abdominal aortic smith without aneurysmal dilation. IVC filter is in place. Moderate stool burden noted. Few diverticula along the distal colon. Generalized moderate soft tissue swelling was also noted and chronic L1 moderate vertebral body compression deformity. IMPRESSION: * Dysphagia in this patient, most likely from gastroesophageal reflux with resulting esophageal stricture. The patient at risk for esophageal cancer with chronic reflux. * Weight loss, likely related to her poor p.o. intake secondary to her dysphagia from esophageal stricture. Cannot exclude any gastric ulcers or esophageal malignancy, though this is likely EGD less than a month ago. Colon cancer always of concern in this age group. * Chronic heartburn, puts her at risk for Cr's esophagus and esophageal stricture as noted above. * Multifocal pneumonia, may be related to aspiration episodes versus other. * Hypothyroidism. * Hypertension. * Cardiomyopathy. * Anasarca. * Pericardial effusion. PLAN: * Keep n.p.o. * Keep well hydrated. * Follow up with a.m. labs. * Continue to monitor CBC. Transfuse PRBC as needed to hemoglobin of 7. * Recommend EGD for further evaluation and management after Cardiology and Pulmonary clearance. Again, Dr. Ceballos thank you for allowing me to participate in care of this patient. TID: [id number] RECEIPT: [id number] cc: CARMEN CEBALLOS MD
[2024-07-12] VITALS (13 sets, daily range): BP systolic 115–141; BP diastolic 68–101; PULSE 71–86; RESP 16–20; TEMP 98.1–99.2; O2SAT 95–97
[2024-07-12] MEDS ORDERED: ZOSYN 3.375GM +NS 50ML IV SCH (05:00)
[2024-07-12] MEDS: DOXYCYCLINE 100MG+NS 250ML 250 ML IV SCH (05:31)
[2024-07-12] MEDS: SODIUM CHLORIDE 3% FOR INHALATION 4 ML/AMP VIAL.NEB IH ONE ×3 (06:35→18:14)
--- NOTE | 2024-07-12 08:41 | CONS ---
GASTROENTEROLOGY CONSULTATION NOTE Date of Consultation: Jul 12, 2024 Time of Consultation: 08:41 History of Present Illness: This is a 69yo female with past medical history of esophageal stenosis with multiple dilations and recent stent placement which migrated. She presented due to dysphagia. EGD was done revealing esophageal perforation. Review of Systems: CONSTITUTIONAL: No malaise or change in sensation of wellbeing. ENMT: No rhinorrhea, otorrhea, sinus pain, ear ache. CARDIOVASCULAR: No angina, palpitations, orthopnea or paroxysmal dyspnea. RESPIRATORY: No SOB. GASTROINTESTINAL: No abdominal pain, nausea, vomiting, diarrhea, hematemesis, melena or change in the patient's habitual bowel movements consistency/number. GENITOURINARY: No dysuria, hematuria or change in bladder continence. MUSCULOSKELETAL: No new muscle pain or decrease in muscular strength. No new joint swelling, redness or tenderness. SKIN: No new rash. Past Medical History: PAST MEDICAL HISTORY: Esophageal stricture/stenosis, history of dysphagia, Crohn's disease, irritable bowel syndrome, depression, hypertension, hypothyroidism, hyperlipidemia, GERD, chronic constipation, history of takotsubo cardiomyopathy, history of brain injury in 2019, GERD PAST SURGICAL HISTORY: x2, gastric bypass surgery 1991, neck surgery x2, carpal tunnel release, bilateral knee surgery PAST SOCIAL HISTORY: Lives with at home, denies active smoking or alcohol consumption. Patient has been nonambulatory for 156 days. 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 Reynaldo nguyen lives with the has been [place]. Patient requires assistance with her ADLs. Patient denies difficulty paying her bills. Coded Allergies: No Known Allergies (Unverified Allergy, Unknown, 05/18/24) Physical Exam: GEN: Awake, alert, oriented in person, time and place, and in no acute distress. HEENT: No sinus tenderness. Tympanic membranes were not examined. No rhinorrhea. Oral pharyngeal mucosa is pink, moist and within normal limits. Neck is supple with no cervical lymphadenopathy, thyromegaly or JVD. CHEST: Inspection, palpation and percussion of the chest were unremarkable. Lung auscultation revealed normal breath sounds bilaterally. CARDIAC: PMI is within normal limits. Heart sounds are regular. Normal S1, S2. No gallop or murmur. ABD: Soft, non-tender and not distended. No peritoneal signs on palpation. No organomegaly. Normal bowel sounds. EXT: No cyanosis or clubbing. No edema. SKIN: Intact. No rashes. JOINTS: No evidence of synovitis or acute arthritis. NEURO: Alert and oriented to name, place and person. Cranial nerve examination is unremarkable. No focal motor deficits. Normal speech. Gait is normal. Strength is normal. Vital Sign (Last 24 Hours) 07/11/24 07/12/24 21:00 03:03 Temp 98.6 B/P (MAP) 126/68 Pulse Ox 93 O2 Flow Rate 0 Intake & Output (last 24hrs) 07/11/24 07/11/24 07/12/24 15:00 23:00 07:00 Intake Total 312.5 ml 275.0 ml Balance 312.5 ml 275.0 ml Laboratory: [ ] Laboratory: Test 07/12/24 05:00 07/11/24 03:28 07/10/24 11:02 Range/Units Whole Blood Glucose 84 70-110 MG/DL White Blood Count 3.7 L 4.8-10.8 K/uL Red Blood Count 2.48 L 4.00-5.50 MIL/uL Hemoglobin 8.2 L 12.0-16.0 g/dL Hematocrit 26.3 L 36-48 % Mean Corpuscular Volume 106.0 H 79-99 fL Mean Corpuscular Hemoglobin 33.1 H 27.0-33.0 pg Mean Corpuscular Hemoglobin Concent 31.2 L 32.0-36.0 g/dL Red Cell Distribution Width 20.4 H 11.0-15.5 % Platelet Count 215 130-400 K/uL Mean Platelet Volume 10.1 7.5-10.5 fL Immature Granulocyte % (Auto) 0.3 0-1 % Neutrophils (%) (Auto) 77.6 H 40.0-77.0 % Lymphocytes (%) (Auto) 15.7 L 21.0-51.0 % Monocytes (%) (Auto) 5.9 3.0-13.0 % Eosinophils (%) (Auto) 0.0 0.0-8.0 % Basophils (%) (Auto) 0.5 0.0-5.0 % Neutrophils # (Auto) 2.9 1.8-7.7 K/uL Lymphocytes # (Auto) 0.6 L 1.0-4.8 K/uL Monocytes # (Auto) 0.2 0.1-1.0 K/uL Eosinophils # (Auto) 0.00 0.00-0.70 K/uL Basophils # (Auto) 0.02 0.00-0.20 K/uL Absolute Immature Granulocyte (auto 0.01 0-1 K/uL Nucleated Red Blood Cells 0.0 0.0-0.19 % Sodium Level 144 136-145 mmol/L Potassium Level 3.3 L 3.5-5.1 mmol/L Chloride Level 112 H 101-111 mmol/L Carbon Dioxide Level 23 21-32 mmol/L Blood Urea Nitrogen 12 7-18 mg/dL Creatinine 0.5 0.5-1.0 mg/dL Glomerular Filtration Rate Calc 103 >90 mL/min Random Glucose 83 70-105 mg/dL Total Calcium 7.7 L 8.5-10.1 mg/dL Procalcitonin < 0.05 L 0.05-0.5 ng/mL Thyroid Stimulating Hormone (TSH) 4.34 H 0.36-3.74 uIU/mL Free Thyroxine (T4) Direct 0.76 0.76-1.46 ng/dL Free Triiodothyronine (T3) pg/mL 0.62 L 2.18-3.98 pg/mL Segmented Neutrophils % 91 H 40-70 % Lymphocytes % (Manual) 8 L 22-44 % Differential Comment MANUAL DIFFERENTIAL Reactive Lymphocytes 1 H 0-0 % White Cell Morphology Comment NORMAL Platelet Morphology Comment ADEQUATE Red Blood Cell Morphology See comments Total Bilirubin 0.2 0.2-1.0 mg/dL Direct Bilirubin 0.1 0.0-0.3 mg/dL Aspartate Amino Transf (AST/SGOT) 26 10-37 U/L Alanine Aminotransferase (ALT/SGPT) 20 12-78 U/L Alkaline Phosphatase 63 50-136 U/L Total Protein 5.0 L 6.0-8.3 g/dL Albumin 1.4 L 3.5-5.0 g/dL Vitamin B12 Level 1930 H 193-986 pg/mL Current Medications Medications (Trade) Dose Ordered Sig/Jennifer Route PRN Reason Start Time Stop Time Status Last Admin Dose Admin Acetaminophen (TYLenol 650MG SUPPOSITORY) 650 mg Q6H PRN RC MILD PAIN (1-3) 07/09/24 19:30 08/08/24 19:29 Albuterol (DUOneb) 1 UDVIAL [id number] IH 07/10/24 00:00 08/09/24 00:00 07/12/24 06:35 1 UDVIAL Bisacodyl (DulcoLAX 5MG TAB) 5 mg AM PO 07/12/24 09:00 08/11/24 08:59 Ceftriaxone Sodium (ROCEphine 1G INJ) 1 gm ONCE IVPB 07/09/24 19:19 07/09/24 23:59 DC 07/09/24 19:19 1 GM Dextrose/Lactated Ringer's 1,000 ml @ 50 mls/hr Q20H IV 07/11/24 20:00 08/10/24 19:59 07/11/24 19:53 50 MLS/HR Doxycycline Hyclate 250 ml @ 125 mls/hr Q12H IV 07/12/24 05:00 07/22/24 04:59 07/12/24 05:31 125 MLS/HR Enoxaparin Sodium (Lovenox) 40 mg DAILY SQ 07/10/24 09:00 07/10/24 19:01 DC 07/10/24 10:15 40 MG Ergocalciferol (Drisdol) 1,250 unit AM PO 07/12/24 09:00 07/12/24 07:47 DC Famotidine (Pepcid 20mg Vial) 20 mg DAILY IV 07/10/24 09:00 07/12/24 07:38 DC 07/11/24 09:00 20 MG Fludrocortisone Acetate (Fludrocortisone Acetate) 0.1 mg DAILY PO 07/12/24 09:00 08/11/24 08:59 Furosemide (LASix 20MG TAB) 20 mg DAILY PO 07/12/24 09:00 07/12/24 04:49 DC Home Med (Home Medication) (Folic Acid 1 CAP) DAILY PO 07/12/24 09:00 08/11/24 08:59 Home Med (Home Medication) ([Azasan] 50 MG) AM PO 07/12/24 09:00 08/11/24 08:59 Hydralazine HCl (APRESOLine 20MG INJ) 10 mg Q6H PRN IV For:SBP above 160;DBP above 90 07/09/24 19:30 08/08/24 19:29 Lactated Ringer's 1,000 ml @ 75 mls/hr [id number] IV 07/09/24 19:30 07/11/24 19:49 DC 07/10/24 21:39 75 MLS/HR Levothyroxine Sodium (SYNTHroid 50MCG TAB) 50 mcg SYN PO 07/13/24 06:30 08/12/24 06:29 Loratadine (LORATAdine 10 mg) 10 mg DAILY PO 07/12/24 09:00 08/11/24 08:59 Midodrine (PROAMatine 5 MG TABLET) 5 mg TID PO 07/12/24 09:00 08/11/24 08:59 Miscellaneous Medication (Esomeprazole Magnesium ) 1 cap DAILY PO 07/12/24 09:00 07/12/24 07:38 DC Miscellaneous Medication (Famotidine ) 1 tab DAILY PO 07/12/24 09:00 07/12/24 07:38 DC Miscellaneous Medication (Ondansetron HCl ) 1 tab TID PO 07/12/24 09:00 07/12/24 07:47 DC Miscellaneous Medication (Sertraline HCl ) 1 tab DAILY PO 07/12/24 09:00 07/12/24 07:41 DC Montelukast Sodium (SinguLAIR) 10 mg DAILY PO 07/12/24 09:00 08/11/24 08:59 Morphine Sulfate (morPHINE 2MG SYG) 2 mg Q4H PRN IVP SEVERE PAIN (7-10) 07/10/24 19:30 07/16/24 19:29 07/12/24 07:43 2 MG Morphine Sulfate (morPHINE 4MG SYG) 2 mg Q4H PRN IVP SEVERE PAIN (7-10) 07/09/24 19:30 07/10/24 19:01 DC Ondansetron HCl (zoFRAN 4MG INJ) 4 mg Q6H PRN IV NAUSEA/VOMITING 07/09/24 19:30 08/08/24 19:29 Pantoprazole Sodium (PROTonix 40MG TAB) 40 mg DAILY PO 07/12/24 09:00 08/11/24 08:59 Piperacillin Sod/ Tazobactam Sod (Zosyn 3.375gm+NS 50ml) 3.375 gm Q12H IV 07/12/24 05:00 07/12/24 04:51 DC Piperacillin Sod/ Tazobactam Sod (Zosyn 3.375gm+NS 50ml) 3.375 gm ZOSY8 IV 07/09/24 21:00 07/19/24 20:59 07/12/24 04:16 3.375 GM Quetiapine Fumarate (SEROquel 25 mg TAB) 50 mg HS PO 07/12/24 21:00 08/11/24 20:59 Sertraline HCl (ZOloft 50 mg tab) 150 mg DAILY PO 07/11/24 09:00 08/10/24 08:59 Simvastatin (zoCOR) 20 mg HS PO 07/12/24 21:00 08/11/24 20:59 Sodium Chloride 1,000 ml @ 500 mls/hr Q2H IV 07/09/24 17:34 07/10/24 01:15 DC 07/09/24 19:34 500 MLS/HR Spironolactone (Aldactone 25mg) 25 mg DAILY PO 07/12/24 09:00 07/12/24 04:49 DC Sucralfate (Carafate) 1 gm TID PO 07/12/24 09:00 08/11/24 08:59 Vitamin B Complex (Vitamin B-12) 1,000 mcg DAILY PO 07/12/24 09:00 08/11/24 08:59 Diagnostics / Radiology: [COPY/PASTE HERE IF NO REPORTS PLEASE DELETE SECTION] Assessment: Esophageal stricture Gastric bypass Plan: EGD with stent and overstitch Friday Continue GI prophylaxis Avoid NSAIDs Antireflux measures Monitor H&H and transfuse as needed Call with questions, concerns or change in clinical status Patient to follow-up at clinic post discharge Thank you for this consult MALA CHARLES ELECTRIFIER OPERATOR Jul 12, 2024 08:41
[2024-07-12] MEDS: BisaCODYL 5 MG TABLET.DR PO SCH (09:00)
[2024-07-12] MEDS: PANTOPrazole 40 MG TAB DR PO SCH (09:00)
[2024-07-12] MEDS ORDERED: furoSEMIDE 20 MG TABLET PO SCH (09:00)
[2024-07-12] MEDS: miDODRine HCL 5 MG TABLET PO SCH (09:00)
[2024-07-12] MEDS ORDERED: NON-FORMULARY MEDICATION 1 EACH (Esomeprazole Magnesium 1 CAP) PO SCH (09:00)
[2024-07-12] MEDS: LORATAdine 10 mg 10 MG TABLET PO SCH (09:00)
[2024-07-12] MEDS: FOLIC ACID PO SCH (09:00)
[2024-07-12] MEDS ORDERED: ONDANSETRON HCL PO SCH (09:00)
[2024-07-12] MEDS ORDERED: NON-FORMULARY MEDICATION 1 EACH (Sertraline HCl 1 TAB) PO SCH (09:00)
[2024-07-12] MEDS: SUCRALFATE 1 GM TABLET PO SCH (09:00)
[2024-07-12] MEDS ORDERED: ERGOCALCIFEROL (VITAMIN D2) 50,000 UNIT CAPSULE PO SCH (09:00)
[2024-07-12] MEDS ORDERED: SPIRONOLACTONE 25 MG TAB PO SCH (09:00)
[2024-07-12] MEDS: AZATHIOPRINE 50 MG PO SCH (09:00)
[2024-07-12] MEDS ORDERED: NON-FORMULARY MEDICATION 1 EACH (Famotidine 1 TAB) PO SCH (09:00)
[2024-07-12] MEDS: FLUDROCORTISONE ACETATE 0.1 MG TABLET PO SCH (09:00)
[2024-07-12] MEDS: CYANOCOBALAMIN (VITAMIN B-12) 1,000 MCG TABLET PO SCH (09:00)
[2024-07-12] MEDS: monteLUKAST sodIUM 10 MG TAB PO SCH (09:00)
--- NOTE | 2024-07-12 10:01 | HMCIMG ---
CHEST 1VW HISTORY: Shortness of breath COMPARISON: 07/11/2024 FINDINGS: A frontal projection of the chest was obtained. There are bilateral pulmonary infiltrates suggestive of pulmonary vascular congestion with possible superimposed pneumonitis. There is 20% right pneumothorax. The heart is borderline enlarged. Degenerative changes are seen. No evidence of aortic calcification is seen. IMPRESSION: 1. Bilateral pulmonary infiltrates are seen suggestive of pulmonary vascular congestion with possible superimposed pneumonitis. 20% right pneumothorax. Report was given to the floor.
--- NOTE | 2024-07-12 10:40 | PN ---
[facility] PROGRESS NOTE Date of Service: Jul 12, 2024 Time of Service: 10:[address] Johnson 69-year-old female admitted with multifocal pneumonia and pleural effusion SUBJECTIVE: [ Hospital day 1. For 69-year-old female admitted with multifocal pneumonia and pericardial effusion. On further history with the patient as well as her spouse who is my patient at the [facility] [place]. Patient has had problems with chronic esophageal and sounds like gastric strictures for the past six months. Patient has been seeing Dr. Ki Medina gastrointestinal specialist and Dr. Philip at the same group and has had multiple dilations including balloon dilation on about four or five occasions. Patient's weight has gone down from about just under 200 lb to less than 100 lb but she has recently gained about 27 lb back per her spouse. Patient has been in and out of the [facility] for rehab and [facility]. She had a complication and in esophageal tear that was a complication from too much pressure with a balloon dilator. I asked her if she bled significantly as she is on blood thinners but he has had no. Otherwise the patient states that she has had about a week's worth of a productive cough with brown phlegm no fevers or chill s. Patient had a fall approximately six months ago in which a lot of her problems started. She has essentially been nonambulatory during this whole time. Although when she was at the correction they did set her up and do gentle [id number] exercises and even short ambulation with the assistance patient has been bed-bound essentially. She had significant swelling to most of her body and was told this was from malnutrition that has been slowly improving over the last few weeks now that she is able to take by mouth. She has complicating factors in the sense that she fell and destroyed her implants and upper anchor for her dentures and so has had to have pureed food only 07/11/2024: No significant interval events reported. 07/12/24 patient was seen by nurse practitioner and physician during rounding in room 230. Patient was comfortably lying in bed. Urine culture final negative. Blood culture 48 hours negative so far. Patient was evaluated by parts runner and was cleared for EGD. Patient was evaluated by Dr. Moon and EGD was performed, which showed benign appearing esophageal stenosis. And nonbleeding perforation was found in the esophagus. Afterwards we found out that patient belongs to Dr. Monroy so the care was change to other group of GI. Patient is pending possible esophagram was evaluated by other GI group. CT chest/abdomen showed aspiration pneumonia small pericardial effusion, small abdominal ascites and anasarca. 2D echo EF 60 65% stage I diastolic dysfunction large left pleural effusion. As per GI patient is not a candidate for PEG tube due to history of a bypass. Patient has bilateral lower extremity swelling we will order 20 mg of Lasix IV one dose only. We will do CBC, CMP and magnesium stat, as well we will repeat morning labs. Patient came from [facility] per family member at the bedside would like to return done once patient medically cleared. We will continue to monitor patient in the meantime. A.m. labs] REVIEW OF SYSTEMS CONSTITUTIONAL: Denies fevers, chills, or night sweats. wt loss as described above of about 80lbs in 6 months NEUROLOGICAL: no n/t, no hx of strokes ENT: No hearing loss, otalgia, otorrhea, rhinitis, rhinorrhea, or sore throat.+very raspy voices CARDIOVASCULAR: Denies any exertional angina, dyspnea on exertion, orthopnea, paroxysmal nocturnal dyspnea, palpitations, life-threatening arrhythmias, claudication. GASTROINTESTINAL: See history of present illness, + esophageal stenosis and dysphagia for six months. Positive nausea and intermittent vomiting, regular bowel movements no diarrhea no bloody stools GENITOURINARY: Denies increased frequency, no urgency or pain with urination. Patient states he is continent to both bowel and bladder. ENDOCRINOLOGIC: Denies polyuria, polydipsia, polyphagia or heat/cold intolerances. HEMATOLOGIC: Patient did have a clot in her upper extremity a few months back. That resolved on its own per the patient's spouse ONCOLOGIC: Denies personal history of malignancy. DERMATOLOGIC: Easy bruisability with multiple ecchymotic areas to the neck. PSYCHIATRIC: Denies any suicidal or homicidal ideation. Denies hallucinations. Positive depressive symptomatology because of health decline with the last six months. PHYSICAL EXAM GENERAL APPEARANCE: The patient is awake, alert, and oriented, in no acute cardiopulmonary distress. Very cachectic appearing 69-year-old female appearing much older than stated age NEUROLOGICAL: Cranial nerves II-XII grossly intact. Motor is 4+/5 in bilateral upper and lower extremities proximal to distal. No sensory deficits. HEENT: Face is symmetric. Pupils are equal and reactive. Extraocular movements are intact. TMs are pearly riley and external auditory canals are without inflammation. NECK: Supple. No JVD. No thyromegaly. No submental, submandibular, pre- /postauricular, occipital or supraclavicular lymphadenopathy. CHEST: Normal chest expansion. LUNGS: Bilateral rhonchi noted to the mid and lower lung adams, no wheezes or rales noted. CARDIOVASCULAR: Regular. S1 and S2 normal. No appreciable rubs, murmurs or gallops. ABDOMEN: Soft, nontender, and nondistended. There is no rebound, voluntary guarding, or rigidity. : Deferred. No Manuel. EXTREMITIES: Non-edematous and not cyanotic. No clubbing. Good capillary refill. Dorsalis pedis pulse present to the right foot left foot dorsalis pedis very slightly palpable but cap refill brisk posterior tibial pulses felt x2 SKIN: No skin breakdown. Vital Signs (last 8hr) Date Time Temp Pulse Resp B/P (MAP) Pulse Ox O2 Delivery O2 Flow Rate FiO2 07/12/24 07:00 98.1 86 16 124/72 97 Room Air 07/12/24 06:38 77 20 N/A Room Air 21 07/12/24 06:38 77 20 07/12/24 03:03 98.6 85 16 126/68 93 Room Air LABS: Laboratory: Test 07/12/24 05:00 07/11/24 03:28 07/10/24 11:02 Range/Units Whole Blood Glucose 84 70-110 MG/DL White Blood Count 3.7 L 4.8-10.8 K/uL Red Blood Count 2.48 L 4.00-5.50 MIL/uL Hemoglobin 8.2 L 12.0-16.0 g/dL Hematocrit 26.3 L 36-48 % Mean Corpuscular Volume 106.0 H 79-99 fL Mean Corpuscular Hemoglobin 33.1 H 27.0-33.0 pg Mean Corpuscular Hemoglobin Concent 31.2 L 32.0-36.0 g/dL Red Cell Distribution Width 20.4 H 11.0-15.5 % Platelet Count 215 130-400 K/uL Mean Platelet Volume 10.1 7.5-10.5 fL Immature Granulocyte % (Auto) 0.3 0-1 % Neutrophils (%) (Auto) 77.6 H 40.0-77.0 % Lymphocytes (%) (Auto) 15.7 L 21.0-51.0 % Monocytes (%) (Auto) 5.9 3.0-13.0 % Eosinophils (%) (Auto) 0.0 0.0-8.0 % Basophils (%) (Auto) 0.5 0.0-5.0 % Neutrophils # (Auto) 2.9 1.8-7.7 K/uL Lymphocytes # (Auto) 0.6 L 1.0-4.8 K/uL Monocytes # (Auto) 0.2 0.1-1.0 K/uL Eosinophils # (Auto) 0.00 0.00-0.70 K/uL Basophils # (Auto) 0.02 0.00-0.20 K/uL Absolute Immature Granulocyte (auto 0.01 0-1 K/uL Nucleated Red Blood Cells 0.0 0.0-0.19 % Sodium Level 144 136-145 mmol/L Potassium Level 3.3 L 3.5-5.1 mmol/L Chloride Level 112 H 101-111 mmol/L Carbon Dioxide Level 23 21-32 mmol/L Blood Urea Nitrogen 12 7-18 mg/dL Creatinine 0.5 0.5-1.0 mg/dL Glomerular Filtration Rate Calc 103 >90 mL/min Random Glucose 83 70-105 mg/dL Total Calcium 7.7 L 8.5-10.1 mg/dL Procalcitonin < 0.05 L 0.05-0.5 ng/mL Thyroid Stimulating Hormone (TSH) 4.34 H 0.36-3.74 uIU/mL Free Thyroxine (T4) Direct 0.76 0.76-1.46 ng/dL Free Triiodothyronine (T3) pg/mL 0.62 L 2.18-3.98 pg/mL Segmented Neutrophils % 91 H 40-70 % Lymphocytes % (Manual) 8 L 22-44 % Differential Comment MANUAL DIFFERENTIAL Reactive Lymphocytes 1 H 0-0 % White Cell Morphology Comment NORMAL Platelet Morphology Comment ADEQUATE Red Blood Cell Morphology See comments Total Bilirubin 0.2 0.2-1.0 mg/dL Direct Bilirubin 0.1 0.0-0.3 mg/dL Aspartate Amino Transf (AST/SGOT) 26 10-37 U/L Alanine Aminotransferase (ALT/SGPT) 20 12-78 U/L Alkaline Phosphatase 63 50-136 U/L Total Protein 5.0 L 6.0-8.3 g/dL Albumin 1.4 L 3.5-5.0 g/dL Vitamin B12 Level 1930 H 193-986 pg/mL Current Medications Medications (Trade) Dose Ordered Sig/Jennifer Route PRN Reason Start Time Stop Time Status Last Admin Dose Admin Acetaminophen (TYLenol 650MG SUPPOSITORY) 650 mg Q6H PRN RC MILD PAIN (1-3) 07/09/24 19:30 08/08/24 19:29 Albuterol (DUOneb) 1 UDVIAL [id number] IH 07/10/24 00:00 08/09/24 00:00 07/12/24 06:35 1 UDVIAL Bisacodyl (DulcoLAX 5MG TAB) 5 mg AM PO 07/12/24 09:00 08/11/24 08:59 Ceftriaxone Sodium (ROCEphine 1G INJ) 1 gm ONCE IVPB 07/09/24 19:19 07/09/24 23:59 DC 07/09/24 19:19 1 GM Dextrose/Lactated Ringer's 1,000 ml @ 50 mls/hr Q20H IV 07/11/24 20:00 08/10/24 19:59 07/11/24 19:53 50 MLS/HR Doxycycline Hyclate 250 ml @ 125 mls/hr Q12H IV 07/12/24 05:00 07/22/24 04:59 07/12/24 05:31 125 MLS/HR Enoxaparin Sodium (Lovenox) 40 mg DAILY SQ 07/10/24 09:00 07/10/24 19:01 DC 07/10/24 10:15 40 MG Ergocalciferol (Drisdol) 1,250 unit AM PO 07/12/24 09:00 07/12/24 07:47 DC Famotidine (Pepcid 20mg Vial) 20 mg DAILY IV 07/10/24 09:00 07/12/24 07:38 DC 07/11/24 09:00 20 MG Fludrocortisone Acetate (Fludrocortisone Acetate) 0.1 mg DAILY PO 07/12/24 09:00 08/11/24 08:59 Furosemide (LASix 20MG TAB) 20 mg DAILY PO 07/12/24 09:00 07/12/24 04:49 DC Home Med (Home Medication) (Folic Acid 1 CAP) DAILY PO 07/12/24 09:00 08/11/24 08:59 Home Med (Home Medication) ([Azasan] 50 MG) AM PO 07/12/24 09:00 08/11/24 08:59 Hydralazine HCl (APRESOLine 20MG INJ) 10 mg Q6H PRN IV For:SBP above 160;DBP above 90 07/09/24 19:30 08/08/24 19:29 Lactated Ringer's 1,000 ml @ 75 mls/hr [id number] IV 07/09/24 19:30 07/11/24 19:49 DC 07/10/24 21:39 75 MLS/HR Levothyroxine Sodium (SYNTHroid 50MCG TAB) 50 mcg SYN PO 07/13/24 06:30 08/12/24 06:29 Loratadine (LORATAdine 10 mg) 10 mg DAILY PO 07/12/24 09:00 08/11/24 08:59 Midodrine (PROAMatine 5 MG TABLET) 5 mg TID PO 07/12/24 09:00 08/11/24 08:59 Miscellaneous Medication (Esomeprazole Magnesium ) 1 cap DAILY PO 07/12/24 09:00 07/12/24 07:38 DC Miscellaneous Medication (Famotidine ) 1 tab DAILY PO 07/12/24 09:00 07/12/24 07:38 DC Miscellaneous Medication (Ondansetron HCl ) 1 tab TID PO 07/12/24 09:00 07/12/24 07:47 DC Miscellaneous Medication (Sertraline HCl ) 1 tab DAILY PO 07/12/24 09:00 07/12/24 07:41 DC Montelukast Sodium (SinguLAIR) 10 mg DAILY PO 07/12/24 09:00 08/11/24 08:59 Morphine Sulfate (morPHINE 2MG SYG) 2 mg Q4H PRN IVP SEVERE PAIN (7-10) 07/10/24 19:30 07/16/24 19:29 07/12/24 07:43 2 MG Morphine Sulfate (morPHINE 4MG SYG) 2 mg Q4H PRN IVP SEVERE PAIN (7-10) 07/09/24 19:30 07/10/24 19:01 DC Ondansetron HCl (zoFRAN 4MG INJ) 4 mg Q6H PRN IV NAUSEA/VOMITING 07/09/24 19:30 08/08/24 19:29 Pantoprazole Sodium (PROTonix 40MG TAB) 40 mg DAILY PO 07/12/24 09:00 08/11/24 08:59 Piperacillin Sod/ Tazobactam Sod (Zosyn 3.375gm+NS 50ml) 3.375 gm Q12H IV 07/12/24 05:00 07/12/24 04:51 DC Piperacillin Sod/ Tazobactam Sod (Zosyn 3.375gm+NS 50ml) 3.375 gm ZOSY8 IV 07/09/24 21:00 07/19/24 20:59 07/12/24 04:16 3.375 GM Quetiapine Fumarate (SEROquel 25 mg TAB) 50 mg HS PO 07/12/24 21:00 08/11/24 20:59 Sertraline HCl (ZOloft 50 mg tab) 150 mg DAILY PO 07/11/24 09:00 08/10/24 08:59 Simvastatin (zoCOR) 20 mg HS PO 07/12/24 21:00 08/11/24 20:59 Sodium Chloride 1,000 ml @ 500 mls/hr Q2H IV 07/09/24 17:34 07/10/24 01:15 DC 07/09/24 19:34 500 MLS/HR Spironolactone (Aldactone 25mg) 25 mg DAILY PO 07/12/24 09:00 07/12/24 04:49 DC Sucralfate (Carafate) 1 gm TID PO 07/12/24 09:00 08/11/24 08:59 Vitamin B Complex (Vitamin B-12) 1,000 mcg DAILY PO 07/12/24 09:00 08/11/24 08:59 DIAGNOSTICS / RADIOLOGY: [ ] ASSESSMENT: [1. Left upper and lower lobe aspiration pneumonia POA 2 small pericardial effusion per 2D echo POA 3. Uncontrolled Hypertension POA 4. Hyperlipidemia POA 5. History of anasarca POA 6. Severe protein calorie malnutrition POA 7. Bed-bound x6 months POA 8. Depression likely adjustment reaction to severe health decline over the last six months POA 9. Leukopenia POA 10. History of orthostatic hypotension POA 11. Esophageal stricture history 12. Status post gastric bypass, patient not a candidate for PEG tube placement 13. hypothyroidism POA 14. Macrocytic anemia, POA 15. B12 deficiency on oral replacement POA Perforation of esophagus per CT abdomen/pelvis POA Esophageal dysfunction per CT abdomen/chest POA Acute on chronic diastolic heart failure 2D echo EF 60 65% stage I diastolic dy sfunction ] PLAN: [Continue Zosyn for multifocal pneumonia. Would also do breathing treatments as needed around the clock while awake. Along with gentle pulmonary physiotherapy. As per Cardiology patient is cleared for EGD Patient is CT scan was discussed with Cardiology and it turns out that the patient actually has a larger pleural effusion which may have been what the radiologist was mistaken for pericardial effusion the pericardial effusion is clinically insignificant. Home medication resumed by CANDY BUTCHER 07/12/2024 Final urine culture negative Blood culture-48 hours Waiting for further recommendations of GI regarding the dysphagia Possible esophagram in a.m. A.m. labs PT Case management ] ATTESTATION BY PHYSICIAN I have seen and examined the patient. I reviewed the documentation, medical decision making, and treatment plan as noted by the mid-level provider above. I agree with the findings and plan of care. LELE JOHNSON MD, KATAR[employer]YNA [employer]INE HEL[employer] Jul 12, 2024 10:40
[2024-07-12] MEDS: furoSEMIDE 20MG VIAL IV ONE (10:51)
--- NOTE | 2024-07-12 11:00 | NUR ---
Order received and spoke to patient who refused PT. PT team to follow.
[2024-07-12 13:32] LABS: HEMATOCRIT 26.2 % (36-48); MEAN CORPUSCULAR HEMOGLOBIN 33.6 pg (27.0-33.0); MEAN CORPUSCULAR HGB CONC 31.3 g/dL (32.0-36.0); MEAN CORPUSCULAR VOLUME 107.4 fL (79-99); PLATELET COUNT (AUTO) 193 K/uL (130-400); RED BLOOD CELL COUNT(AUTO) 2.44 MIL/uL (4.00-5.50); RED CELL DISTRIBUTION WIDTH 19.9 % (11.0-15.5); WHITE BLOOD COUNT (AUTO) 2.1 K/uL (4.8-10.8)
[2024-07-12 14:39] LABS: EOSINOPHILS % (MANUAL) 1 % (1-6); LYMPHOCYTES % (MANUAL) 34 % (22-44); MAN.DIFF COMMENT-IMPRESSION MANUAL DIFFERENTIAL; PLATELET MORPHOLOGY COMMENT ADEQUATE; REACTIVE LYMPHOCYTES 2 % (0-0); SEGMENTED NEUTROPHILS % 63 % (40-70); TOTAL CELLS COUNTED 100; WBC MORPHOLOGY REACTIVE LYMPHS 1+
[2024-07-12 16:16] LABS: INR 1.09 (0.85-1.15); PROTHROMBIN TIME 11.5 SEC (9.6-11.6)
[2024-07-12 16:17] LABS: PARTIAL THROMBOPLASTIN TIME 35.5 SEC (26.3-35.5)
--- NOTE | 2024-07-12 16:49 | HMCIMG ---
CHEST 1VW HISTORY: Pneumothorax COMPARISON: Same date x-ray FINDINGS: A frontal projection of the chest was obtained. There are bilateral pulmonary infiltrates suggestive of pulmonary vascular congestion with possible superimposed pneumonitis. There is small 5% to 10% right pneumothorax decreased in size from previous study. The heart is borderline enlarged. Degenerative changes are seen. No evidence of aortic calcification is seen. IMPRESSION: 1. Bilateral pulmonary infiltrates are seen suggestive of pulmonary vascular congestion with possible superimposed pneumonitis. 5-10% right pneumothorax decreased in size from previous study.
--- NOTE | 2024-07-12 19:50 | HMCIMG ---
PORTABLE CHEST RADIOGRAPH INDICATION: PICC PLACEMENT COMPARISON: 07/12/2024 at 1621 hours FINDINGS/IMPRESSION: Patient positioning is not optimal, but the radiologic examination is still believed to be of reasonable diagnostic quality. Tip of left PICC within the SVC. Remainder of the study is unchanged.
[2024-07-12] MEDS: queTIAPine fuMARate 25 MG TAB PO SCH (20:12)
[2024-07-12] MEDS: simVASTatin 20 MG TABLET PO SCH (20:12)
[2024-07-13] VITALS (13 sets, daily range): BP systolic 108–150; BP diastolic 74–99; PULSE 69–80; RESP 16–18; TEMP 98.4–98.8; O2SAT 94–98
--- NOTE | 2024-07-13 03:43 | PN ---
[facility] PROGRESS NOTE Date Patient Seen: Jul 12, 2024 Time of Visit: 13:36 Supervising Physician: [Dr. Hooks] Primary Care Physician: [[facility]] Outpatient Specialists: [ ] Inpatient Consults: [BIS] PROBLEM LIST: Esophageal tear, pending EGD report Left upper and lower lobe pneumonia, POA Left pleural effusion, moderate Small pericardial effusion, POA Hypertension POA Hyperlipidemia POA Severe protein calorie malnutrition in setting of gastric bypass Failure to thrive Depression, POA Leukopenia POA Esophageal stricture history s/p esophageal stent placement Hypothyroidism POA Macrocytic anemia with B12 deficiency Plan: Repeat CXR Continue Zosyn and doxycycline for HCAP coverage since patient came from [facility] Pending sputum culture, order procalcitonin Consider MBSS once cleared from GI for esophageal obstruction Consider initiating lasix and spironolactone once able to tolerate oral diet Conservative management and monitoring of pleural effusion GI for management of esophageal stricture Disposition per primary INTERVAL HISTORY: [Patient is evaluated at bedside. She is resting comfortably in no acute respiratory distress. Per primary nurse, patient was found with esophageal tear, not reported on CT. Her CXR today is read as having a pneumothorax. This is not noted per review of CT chest on admission however she did undergo EGD and found to have esophageal tear. CXR did not appear to have pneumothorax per my interpretation, will repeat CXR for reanalysis. Imaging studies also reviewed by Dr. Hooks. No recommendation for chest tube at this time. Patient is breathing unlabored on room air.] REVIEW OF SYSTEMS: 12 point ROS reviewed with patient. Pertinent positives mentioned above. Otherwise negative. PHYSICAL EXAM: GENERAL: alert, weak, awake oriented x 3, moderate to severe scoliosis HEENT: EOMI, Sclera non icteric, moist mucosa NECK: Supple, no JVD, trachea midline LUNGS: Clear breath sounds bilaterally. No wheezes HEART: Regular rate and rhythm. Normal S1 and S2, without murmurs ABD: Abdomen soft, nontender. Bowel sounds present EXT: No clubbing cyanosis or edema NEURO: Alert and oriented to person, follows commands Vital Signs (last 8hr) Date Time Temp Pulse Resp B/P (MAP) Pulse Ox O2 Delivery O2 Flow Rate FiO2 07/13/24 03:33 98.8 71 16 130/84 96 Room Air 07/13/24 00:58 75 18 N/A Room Air 21 07/13/24 00:58 75 18 4/7/25 23:09 98.6 76 16 136/82 100 Room Air 07/12/24 19:43 95 Room Air* 0 21 LABS: Hematology Labs: Test 07/12/24 13:20 Range/Units White Blood Count 2.1 L 4.8-10.8 K/uL Red Blood Count 2.44 L 4.00-5.50 MIL/uL Hemoglobin 8.2 L 12.0-16.0 g/dL Hematocrit 26.2 L 36-48 % Mean Corpuscular Volume 107.4 H 79-99 fL Mean Corpuscular Hemoglobin 33.6 H 27.0-33.0 pg Mean Corpuscular Hemoglobin Concent 31.3 L 32.0-36.0 g/dL Red Cell Distribution Width 19.9 H 11.0-15.5 % Platelet Count 193 130-400 K/uL Mean Platelet Volume 9.9 7.5-10.5 fL Segmented Neutrophils % 63 40-70 % Lymphocytes % (Manual) 34 22-44 % Eosinophils % (Manual) 1 1-6 % Nucleated Red Blood Cells 0.0 0.0-0.19 % Differential Comment MANUAL DIFFERENTIAL Reactive Lymphocytes 2 H 0-0 % White Cell Morphology Comment REACTIVE LYMPHS 1+ Platelet Morphology Comment ADEQUATE Red Blood Cell Morphology See comments Chemistry Labs: Test 07/12/24 22:12 Range/Units Whole Blood Glucose 74 70-110 MG/DL Coagulation Labs: Test 07/12/24 15:48 Range/Units Prothrombin Time 11.5 9.6-11.6 SEC Prothromb Time International Ratio 1.09 0.85-1.15 Activated Partial Thromboplast Time 35.5 26.3-35.5 SEC DIAGNOSTICS / RADIOLOGY RESULTS: [ ] PLAN NEURO: Minimize central acting medications as possible. Maintain fall precautions, adequate lighting during the day PULMONARY: Supplemental 02 as needed. Maintain aspiration precautions at all times CARDIOVASCULAR: Follow hemodynamics. Vital signs per facility protocol GI & NUTRITION: Continue with nutritional support. Continue stool softeners and laxatives as needed. KIDNEYS & ELECTROLYTES: Strict monitoring of intake, output and overall fluid balance. Avoid nephrotoxic medications to the extent possible. Medications to be dosed according to renal function. Monitor electrolytes and replace as needed ENDOCRINE: Maintain blood glucose between 100-180 at all times. Hypoglycemia protocol in place INFECTIOUS DISEASE: Trend temperature, WBC and procalcitonin level Follow cultures, deescalate antibiotics as soon as possible. Panculture if new onset fever ONCOLOGY/HEMATOLOGY/COAGULATION: Monitor for s/s of bleeding Monitor hemoglobin, coagulation studies as needed SKIN: Pressure ulcer prevention per facility protocol Specialty mattress ORTHO/REHAB: Continue PT/OT Prophylaxis: Continue GI and DVT prophylaxis Code Status: Full Resuscitation Disposition: TBD Other: Total patient care time exceeds 35 minutes excluding all procedures. RUMA YOON Jul 13, 2024 03:43
[2024-07-13 04:06] LABS: BASOPHILS # (AUTO) 0.02 K/uL (0.00-0.20); BASOPHILS % (AUTO) 0.8 % (0.0-5.0); EOSINOPHILS # (AUTO) 0.07 K/uL (0.00-0.70); EOSINOPHILS % (AUTO) 2.6 % (0.0-8.0); HEMATOCRIT 27.9 % (36-48); IMMATURE GRANULOCYTE ABSOLUTE 0.02 K/uL (0-1); LYMPHOCYTES # (AUTO) 1.1 K/uL (1.0-4.8); LYMPHOCYTES % (AUTO) 42.5 % (21.0-51.0); MEAN CORPUSCULAR HEMOGLOBIN 32.6 pg (27.0-33.0); MEAN CORPUSCULAR HGB CONC 30.1 g/dL (32.0-36.0); MEAN CORPUSCULAR VOLUME 108.1 fL (79-99); MONOCYTES # (AUTO) 0.2 K/uL (0.1-1.0); MONOCYTES % (AUTO) 8.6 % (3.0-13.0); NEUTROPHILS # (AUTO) 1.2 K/uL (1.8-7.7); NEUTROPHILS % (AUTO) 44.7 % (40.0-77.0); PLATELET COUNT (AUTO) 195 K/uL (130-400); RED BLOOD CELL COUNT(AUTO) 2.58 MIL/uL (4.00-5.50); RED CELL DISTRIBUTION WIDTH 19.9 % (11.0-15.5); WHITE BLOOD COUNT (AUTO) 2.7 K/uL (4.8-10.8)
[2024-07-13 04:19] LABS: BILIRUBIN,TOTAL 0.2 mg/dL (0.2-1.0); CREATININE 0.3 mg/dL (0.5-1.0); MAGNESIUM 1.6 mg/dL (1.80-2.40)
[2024-07-13 04:29] LABS: POTASSIUM 2.6 mmol/L (3.5-5.1)
[2024-07-13] MEDS: MAGNESIUM 2GM PREMIX 50ML 50 ML IV PRN (05:57)
[2024-07-13] MEDS ORDERED: GLUCAGON 1MG KIT 1 MG ML IM PRN ×2 (06:00→06:30)
[2024-07-13] MEDS: levoTHYROxine 50 MCG TABLET PO SCH (06:01)
[2024-07-13] MEDS: PoTASSium chloRIDE 20MEQ/100ML 100 ML IV PRN (06:15)
[2024-07-13] MEDS ORDERED: DEXTROSE 50%-WATER 50 ML DISP.SYRIN IV PRN (06:30)
[2024-07-13] MEDS ORDERED: MAGNESIUM 2GM PREMIX 50ML 50 ML IV SCH (07:30)
[2024-07-13] MEDS ORDERED: PoTASSium chloRIDE 20MEQ/100ML 100 ML IV SCH ×3 (07:30→16:00)
[2024-07-13] MEDS ORDERED: ALBUMIN (HUMAN) 25% 50 ML IV SCH (07:30)
--- NOTE | 2024-07-13 08:11 | PN ---
[facility] PROGRESS NOTE Date Patient Seen: Jul 13, 2024 Time of Visit: 09:11 Supervising Physician: Binh Hooks MD Primary Care Physician: [[facility]] Outpatient Specialists: [ ] Inpatient Consults: [BIS] PROBLEM LIST: Esophageal tear, pending EGD report Left upper and lower lobe pneumonia, POA Left pleural effusion, moderate Small pericardial effusion, POA Suspected Bacterial Aspiration Pneumonia Poa Acute Complicated Cystitis Positive Pseudomonas Aeruginosa Resistant To Zosyn Hypertension POA Hyperlipidemia POA Severe protein calorie malnutrition in setting of gastric bypass Failure to thrive Depression, POA Leukopenia POA Esophageal stricture history s/p esophageal stent placement Hypothyroidism POA Macrocytic anemia with B12 deficiency INTERVAL HISTORY: [Patient is evaluated at bedside. She is resting comfortably in no acute respiratory distress. Per primary nurse, patient was found with esophageal tear, not reported on CT. Her CXR today is read as having a pneumothorax. This is not noted per review of CT chest on admission however she did undergo EGD and found to have esophageal tear. CXR did not appear to have pneumothorax per my interpretation, will repeat CXR for reanalysis. Imaging studies also reviewed by Dr. Hooks. No recommendation for chest tube at this time. Patient is breathing unlabored on room air.] REVIEW OF SYSTEMS: 12 point ROS reviewed with patient. Pertinent positives mentioned above. Otherwise negative. PHYSICAL EXAM: GENERAL: alert, weak, awake oriented x 3, moderate to severe scoliosis HEENT: EOMI, Sclera non icteric, moist mucosa NECK: Supple, no JVD, trachea midline LUNGS: Clear breath sounds bilaterally. No wheezes HEART: Regular rate and rhythm. Normal S1 and S2, without murmurs ABD: Abdomen soft, nontender. Bowel sounds present EXT: No clubbing cyanosis or edema NEURO: Alert and oriented to person, follows commands Vital Signs (last 8hr) Date Time Temp Pulse Resp B/P (MAP) Pulse Ox O2 Delivery O2 Flow Rate FiO2 07/13/24 07:11 72 18 N/A Room Air 21 07/13/24 07:09 72 18 07/13/24 07:00 98.4 80 17 129/79 96 Room Air 07/13/24 03:33 98.8 71 16 130/84 96 Room Air LABS: Hematology Labs: Test 07/13/24 03:30 07/12/24 13:20 Range/Units White Blood Count 2.7 #L 4.8-10.8 K/uL Red Blood Count 2.58 L 4.00-5.50 MIL/uL Hemoglobin 8.4 L 12.0-16.0 g/dL Hematocrit 27.9 L 36-48 % Mean Corpuscular Volume 108.1 H 79-99 fL Mean Corpuscular Hemoglobin 32.6 27.0-33.0 pg Mean Corpuscular Hemoglobin Concent 30.1 L 32.0-36.0 g/dL Red Cell Distribution Width 19.9 H 11.0-15.5 % Platelet Count 195 130-400 K/uL Mean Platelet Volume 10.3 7.5-10.5 fL Immature Granulocyte % (Auto) 0.8 0-1 % Neutrophils (%) (Auto) 44.7 40.0-77.0 % Lymphocytes (%) (Auto) 42.5 21.0-51.0 % Monocytes (%) (Auto) 8.6 3.0-13.0 % Eosinophils (%) (Auto) 2.6 0.0-8.0 % Basophils (%) (Auto) 0.8 0.0-5.0 % Neutrophils # (Auto) 1.2 L 1.8-7.7 K/uL Lymphocytes # (Auto) 1.1 1.0-4.8 K/uL Monocytes # (Auto) 0.2 0.1-1.0 K/uL Eosinophils # (Auto) 0.07 0.00-0.70 K/uL Basophils # (Auto) 0.02 0.00-0.20 K/uL Absolute Immature Granulocyte (auto 0.02 0-1 K/uL Nucleated Red Blood Cells 0.0 0.0-0.19 % White Cell Morphology Comment See comments Segmented Neutrophils % 63 40-70 % Lymphocytes % (Manual) 34 22-44 % Eosinophils % (Manual) 1 1-6 % Differential Comment MANUAL DIFFERENTIAL Reactive Lymphocytes 2 H 0-0 % Platelet Morphology Comment ADEQUATE Red Blood Cell Morphology See comments Chemistry Labs: Test 07/13/24 06:23 07/13/24 03:30 Range/Units Whole Blood Glucose 83 70-110 MG/DL Sodium Level 137 136-145 mmol/L Potassium Level 2.6 *L 3.5-5.1 mmol/L Chloride Level 105 101-111 mmol/L Carbon Dioxide Level 23 21-32 mmol/L Blood Urea Nitrogen 4 L 7-18 mg/dL Creatinine 0.3 L 0.5-1.0 mg/dL Glomerular Filtration Rate Calc 116 >90 mL/min Random Glucose 74 70-105 mg/dL Total Calcium 7.4 L 8.5-10.1 mg/dL Magnesium Level 1.60 L 1.80-2.40 mg/dL Total Bilirubin 0.2 0.2-1.0 mg/dL Aspartate Amino Transf (AST/SGOT) 30 10-37 U/L Alanine Aminotransferase (ALT/SGPT) 14 12-78 U/L Alkaline Phosphatase 49 L 50-136 U/L Total Protein 4.0 L 6.0-8.3 g/dL Albumin 1.0 L 3.5-5.0 g/dL Coagulation Labs: Test 07/12/24 15:48 Range/Units Prothrombin Time 11.5 9.6-11.6 SEC Prothromb Time International Ratio 1.09 0.85-1.15 Activated Partial Thromboplast Time 35.5 26.3-35.5 SEC DIAGNOSTICS / RADIOLOGY RESULTS: [ ] IMAGING REPORT Signed PATIENT: EFRAIN BAKER I MR#: [id number] : 1955 SEX: F AGE: 69 LOCATION: 2AH ORDER 10 STATUS: ADM IN REPORT#: [id number] SERVICE 09 REASON: PICC PLACEMENT ORDERING PHYSICIAN: ALIREZA BUNDY MD PROCEDURE: CXR1VW - CHEST 1VW PORTABLE CHEST RADIOGRAPH INDICATION: PICC PLACEMENT COMPARISON: 07/12/2024 at 1621 hours FINDINGS/IMPRESSION: Patient positioning is not optimal, but the radiologic examination is still believed to be of reasonable diagnostic quality. Tip of left PICC within the SVC. Remainder of the study is unchanged. DICTATED BY: STEFANY MARROQUIN MD DATE: 07/12/241945 ELECTRONICALLY SIGNED BY: STEFANY MARROQUIN MD DATE: 07/12/241949 PLAN Repeat CXR Continue Zosyn At Ceftazidime And Flagyl Per Uti Coverage And Aspiration Pneumonia. Pending sputum culture, order procalcitonin Consider MBSS once cleared from GI for esophageal obstruction Consider initiating lasix and spironolactone once able to tolerate oral diet Conservative management and monitoring of pleural effusion GI for management of esophageal stricture Disposition per primary NEURO: Minimize central acting medications as possible. Maintain fall precautions, adequate lighting during the day PULMONARY: Supplemental 02 as needed. Maintain aspiration precautions at all times CARDIOVASCULAR: Follow hemodynamics. Vital signs per facility protocol GI & NUTRITION: Continue with nutritional support. Continue stool softeners and laxatives as needed. KIDNEYS & ELECTROLYTES: Strict monitoring of intake, output and overall fluid balance. Avoid nephrotoxic medications to the extent possible. Medications to be dosed according to renal function. Monitor electrolytes and replace as needed ENDOCRINE: Maintain blood glucose between 100-180 at all times. Hypoglycemia protocol in place INFECTIOUS DISEASE: Trend temperature, WBC and procalcitonin level Follow cultures, deescalate antibiotics as soon as possible. Panculture if new onset fever ONCOLOGY/HEMATOLOGY/COAGULATION: Monitor for s/s of bleeding Monitor hemoglobin, coagulation studies as needed SKIN: Pressure ulcer prevention per facility protocol Specialty mattress ORTHO/REHAB: Continue PT/OT Prophylaxis: Continue GI and DVT prophylaxis Code Status: Full Resuscitation Disposition: TBD Other: Total patient care time exceeds 35 minutes excluding all procedures. ATTESTATION BY PHYSICIAN The patient has been seen and evaluated, the case has been discussed with the PHARMACY CASHIER, I agree with the clinical findings and plan of care. Binh Hooks MD, NELLY J RECREATION ACTIVITIES COORDINATOR Jul 13, 2024 08:11
--- NOTE | 2024-07-13 09:31 | PN ---
[facility] PROGRESS NOTE Date of Service: Jul 13, 2024 Time of Service: 09:[address] Johnson 69-year-old female admitted with multifocal pneumonia and pleural effusion SUBJECTIVE: [ Hospital day 1. For 69-year-old female admitted with multifocal pneumonia and pericardial effusion. On further history with the patient as well as her spouse who is my patient at the [facility]. Patient has had problems with chronic esophageal and sounds like gastric strictures for the past six months. Patient has been seeing Dr. Ki Medina gastrointestinal specialist and Dr. Philip at the same group and has had multiple dilations including balloon dilation on about four or five occasions. Patient's weight has gone down from about just under 200 lb to less than 100 lb but she has recently gained about 27 lb back per her spouse. Patient has been in and out of the [facility] for rehab and [facility]. She had a complication and in esophageal tear that was a complication from too much pressure with a balloon dilator. I asked her if she bled significantly as she is on blood thinners but he has had no. Otherwise the patient states that she has had about a week's worth of a productive cough with brown phlegm no fevers or chil ls. Patient had a fall approximately six months ago in which a lot of her problems started. She has essentially been nonambulatory since this fall. Although [facility] her [facility] and do gentle [id number] exercises and even short ambulation with the assistance patient has been bed- bound essentially. She had significant swelling to most of her body and was told this was from malnutrition that has been slowly improving over the last few weeks now that she is able to take by mouth. She has complicating factors in the sense that she fell and destroyed her implants and upper anchor for her dentures and so has had to have pureed food only 07/11/2024: No significant interval events reported by nursing staff. Patient reports no pain or shortness for breath. Her morning labs were reviewed 07/12/24 patient was seen by nurse practitioner and physician during rounding in room 230. Patient was comfortably lying in bed. Urine culture final negative. Blood culture 48 hours negative so far. Patient was evaluated by salt was[facility] harvesting station and was cleared for EGD. Patient was evaluated by Dr. Moon and EGD was perfor med, which showed benign appearing esophageal stenosis. And nonbleeding perforation was found in the esophagus. Afterwards we found out that patient belongs to Dr. Monroy so the care was change to other group of GI. Patient is pending possible esophagram was evaluated by other GI group. CT chest/abdomen showed aspiration pneumonia small pericardial effusion, small abdominal ascites and anasarca. 2D echo EF 60 65% stage I diastolic dysfunction large left pleural effusion. As per GI patient is not a candidate for PEG tube due to history of a bypass. Patient has bilateral lower extremity swelling we will order 20 mg of Lasix IV one dose only. We will do CBC, CMP and magnesium stat, as well we will repeat morning labs. Patient came from [facility] per family member at the bedside would like to return done once patient medically cleared. We will continue to monitor patient in the meantime. A.m. labs 07/13 patient was seen by nurse practitioner and physician during rounding in room 230. No family member at the bedside at this moment. Patient was evaluated by the animal nursery worker and per chest x-ray no pneumothorax is visible. No chest needed at this moment. As per GI patient is pending esophagram with possible stent placement on Friday07/14/2024. Patient will receive 60 mEq of potassium in total for potassium of 2.6. Patient will also receive 2 g of magnesium for magnesium 1.6 today in a.m.. Today albumin is 1.0 patient will receive albumin as well. PT working with the patient. Final urine culture negative. Blood culture-48 hours. We will continue to monitor patient in the meantime. A.m. labs.] REVIEW OF SYSTEMS CONSTITUTIONAL: Denies fevers, chills, or night sweats. wt loss as described above of about 80lbs in 6 months NEUROLOGICAL: no n/t, no hx of strokes ENT: No hearing loss, otalgia, otorrhea, rhinitis, rhinorrhea, or sore throat.+very raspy voices CARDIOVASCULAR: Denies any exertional angina, dyspnea on exertion, orthopnea, paroxysmal nocturnal dyspnea, palpitations, life-threatening arrhythmias, claudication. GASTROINTESTINAL: See history of present illness, + esophageal stenosis and dysphagia for six months. Positive nausea and intermittent vomiting, regular bowel movements no diarrhea no bloody stools GENITOURINARY: Denies increased frequency, no urgency or pain with urination. Patient states he is continent to both bowel and bladder. ENDOCRINOLOGIC: Denies polyuria, polydipsia, polyphagia or heat/cold intoleranc es. HEMATOLOGIC: Patient did have a clot in her upper extremity a few months back. That resolved on its own per the patient's spouse, Cedrick. ONCOLOGIC: Denies personal history of malignancy. DERMATOLOGIC: Easy bruisability with multiple ecchymotic areas to the neck. PSYCHIATRIC: Denies any suicidal or homicidal ideation. Denies hallucinations. Positive depressive symptomatology because of health decline with the last six months. PHYSICAL EXAM GENERAL APPEARANCE: The patient is awake, alert, and oriented, in no acute cardiopulmonary distress. Very cachectic appearing 69-year-old female appearing much older than stated age NEUROLOGICAL: Cranial nerves II-XII grossly intact. Motor is 4+/5 in bilateral upper and lower extremities proximal to distal. No sensory deficits. HEENT: Face is symmetric. Pupils are equal and reactive. Extraocular movements are intact. TMs are pearly riley and external auditory canals are without i nflammation. NECK: Supple. No JVD. No thyromegaly. No submental, submandibular, pre-/po stauricular, occipital or supraclavicular lymphadenopathy. CHEST: Normal chest expansion. LUNGS: Bilateral rhonchi noted to the mid and lower lung adams, no wheezes or rales noted. CARDIOVASCULAR: Regular. S1 and S2 normal. No appreciable rubs, murmurs or gallops. ABDOMEN: Soft, nontender, and nondistended. There is no rebound, voluntary guarding, or rigidity. : Deferred. No Manuel. EXTREMITIES: Non-edematous and not cyanotic. No clubbing. Good capillary refill. Dorsalis pedis pulse present to the right foot left foot dorsalis pedis very slightly palpable but cap refill brisk posterior tibial pulses felt x2 SKIN: No skin breakdown. Vital Signs (last 8hr) Date Time Temp Pulse Resp B/P (MAP) Pulse Ox O2 Delivery O2 Flow Rate FiO2 07/13/24 07:11 72 18 N/A Room Air 21 07/13/24 07:09 72 18 07/13/24 07:00 98.4 80 17 129/79 96 Room Air 07/13/24 03:33 98.8 71 16 130/84 96 Room Air LABS: Laboratory: Test 07/13/24 06:23 07/13/24 03:30 07/12/24 15:48 07/12/24 13:20 Range/Units Whole Blood Glucose 83 70-110 MG/DL White Blood Count 2.7 #L 4.8-10.8 K/uL Red Blood Count 2.58 L 4.00-5.50 MIL/uL Hemoglobin 8.4 L 12.0-16.0 g/dL Hematocrit 27.9 L 36-48 % Mean Corpuscular Volume 108.1 H 79-99 fL Mean Corpuscular Hemoglobin 32.6 27.0-33.0 pg Mean Corpuscular Hemoglobin Concent 30.1 L 32.0-36.0 g/dL Red Cell Distribution Width 19.9 H 11.0-15.5 % Platelet Count 195 130-400 K/uL Mean Platelet Volume 10.3 7.5-10.5 fL Immature Granulocyte % (Auto) 0.8 0-1 % Neutrophils (%) (Auto) 44.7 40.0-77.0 % Lymphocytes (%) (Auto) 42.5 21.0-51.0 % Monocytes (%) (Auto) 8.6 3.0-13.0 % Eosinophils (%) (Auto) 2.6 0.0-8.0 % Basophils (%) (Auto) 0.8 0.0-5.0 % Neutrophils # (Auto) 1.2 L 1.8-7.7 K/uL Lymphocytes # (Auto) 1.1 1.0-4.8 K/uL Monocytes # (Auto) 0.2 0.1-1.0 K/uL Eosinophils # (Auto) 0.07 0.00-0.70 K/uL Basophils # (Auto) 0.02 0.00-0.20 K/uL Absolute Immature Granulocyte (auto 0.02 0-1 K/uL Nucleated Red Blood Cells 0.0 0.0-0.19 % White Cell Morphology Comment See comments Sodium Level 137 136-145 mmol/L Potassium Level 2.6 *L 3.5-5.1 mmol/L Chloride Level 105 101-111 mmol/L Carbon Dioxide Level 23 21-32 mmol/L Blood Urea Nitrogen 4 L 7-18 mg/dL Creatinine 0.3 L 0.5-1.0 mg/dL Glomerular Filtration Rate Calc 116 >90 mL/min Random Glucose 74 70-105 mg/dL Total Calcium 7.4 L 8.5-10.1 mg/dL Magnesium Level 1.60 L 1.80-2.40 mg/dL Total Bilirubin 0.2 0.2-1.0 mg/dL Aspartate Amino Transf (AST/SGOT) 30 10-37 U/L Alanine Aminotransferase (ALT/SGPT) 14 12-78 U/L Alkaline Phosphatase 49 L 50-136 U/L Total Protein 4.0 L 6.0-8.3 g/dL Albumin 1.0 L 3.5-5.0 g/dL Prothrombin Time 11.5 9.6-11.6 SEC Prothromb Time International Ratio 1.09 0.85-1.15 Activated Partial Thromboplast Time 35.5 26.3-35.5 SEC Segmented Neutrophils % 63 40-70 % Lymphocytes % (Manual) 34 22-44 % Eosinophils % (Manual) 1 1-6 % Differential Comment MANUAL DIFFERENTIAL Reactive Lymphocytes 2 H 0-0 % Platelet Morphology Comment ADEQUATE Red Blood Cell Morphology See comments Current Medications Medications (Trade) Dose Ordered Sig/Jennifer Route PRN Reason Start Time Stop Time Status Last Admin Dose Admin Acetaminophen (TYLenol 650MG SUPPOSITORY) 650 mg Q6H PRN RC MILD PAIN (1-3) 07/09/24 19:30 08/08/24 19:29 Albumin Human 50 ml @ 0 mls/hr AD IV 07/13/24 07:30 07/13/24 07:17 DC Albuterol (DUOneb) 1 UDVIAL [id number] IH 07/10/24 00:00 08/09/24 00:00 07/13/24 07:08 1 UDVIAL Bisacodyl (DulcoLAX 5MG TAB) 5 mg AM PO 07/12/24 09:00 08/11/24 08:59 Ceftriaxone Sodium (ROCEphine 1G INJ) 1 gm ONCE IVPB 07/09/24 19:19 07/09/24 23:59 DC 07/09/24 19:19 1 GM Dextrose (D50w) 50 ml AD PRN IV HYPOGLYCEMIA PROTOCOL 07/13/24 06:00 08/12/24 05:59 Dextrose (D50w) 50 ml AD PRN IV HYPOGLYCEMIA PROTOCOL 07/13/24 06:30 07/13/24 06:11 DC Dextrose/Lactated Ringer's 1,000 ml @ 50 mls/hr Q20H IV 07/11/24 20:00 08/10/24 19:59 07/12/24 20:10 50 MLS/HR Doxycycline Hyclate 250 ml @ 125 mls/hr Q12H IV 07/12/24 05:00 07/22/24 04:59 07/13/24 04:47 125 MLS/HR Enoxaparin Sodium (Lovenox) 40 mg DAILY SQ 07/10/24 09:00 07/10/24 19:01 DC 07/10/24 10:15 40 MG Ergocalciferol (Drisdol) 1,250 unit AM PO 07/12/24 09:00 07/12/24 07:47 DC Famotidine (Pepcid 20mg Vial) 20 mg DAILY IV 07/10/24 09:00 07/12/24 07:38 DC 07/11/24 09:00 20 MG Fludrocortisone Acetate (Fludrocortisone Acetate) 0.1 mg DAILY PO 07/12/24 09:00 08/11/24 08:59 Furosemide (LASix 20MG TAB) 20 mg DAILY PO 07/12/24 09:00 07/12/24 04:49 DC Glucagon (Glucagon 1mg Kit) 1 mg AD PRN IM HYPOGLYCEMIA PROTOCOL 07/13/24 06:00 08/12/24 05:59 Glucagon (Glucagon 1mg Kit) 1 mg AD PRN IM HYPOGLYCEMIA PROTOCOL 07/13/24 06:30 07/13/24 06:11 DC Home Med (Home Medication) (Folic Acid 1 CAP) DAILY PO 07/12/24 09:00 08/11/24 08:59 Home Med (Home Medication) ([Azasan] 50 MG) AM PO 07/12/24 09:00 08/11/24 08:59 Hydralazine HCl (APRESOLine 20MG INJ) 10 mg Q6H PRN IV For:SBP above 160;DBP above 90 07/09/24 19:30 08/08/24 19:29 Lactated Ringer's 1,000 ml @ 75 mls/hr [id number] IV 07/09/24 19:30 07/11/24 19:49 DC 07/10/24 21:39 75 MLS/HR Levothyroxine Sodium (SYNTHroid 50MCG TAB) 50 mcg SYN PO 07/13/24 06:30 08/12/24 06:29 Loratadine (LORATAdine 10 mg) 10 mg DAILY PO 07/12/24 09:00 08/11/24 08:59 Magnesium Sulfate 50 ml @ 0 mls/hr PROTOCOL IV 07/13/24 07:30 07/13/24 07:14 DC Magnesium Sulfate 50 ml @ 0 mls/hr PROTOCOL PRN IV MAGNESIUM PROTOCOL 07/13/24 06:00 08/12/24 05:59 07/13/24 05:57 25 MLS/HR Midodrine (PROAMatine 5 MG TABLET) 5 mg TID PO 07/12/24 09:00 08/11/24 08:59 Miscellaneous Medication (Esomeprazole Magnesium ) 1 cap DAILY PO 07/12/24 09:00 07/12/24 07:38 DC Miscellaneous Medication (Famotidine ) 1 tab DAILY PO 07/12/24 09:00 07/12/24 07:38 DC Miscellaneous Medication (Ondansetron HCl ) 1 tab TID PO 07/12/24 09:00 07/12/24 07:47 DC Miscellaneous Medication (Sertraline HCl ) 1 tab DAILY PO 07/12/24 09:00 07/12/24 07:41 DC Montelukast Sodium (SinguLAIR) 10 mg DAILY PO 07/12/24 09:00 08/11/24 08:59 Morphine Sulfate (morPHINE 2MG SYG) 2 mg Q4H PRN IVP SEVERE PAIN (7-10) 07/10/24 19:30 07/16/24 19:29 07/12/24 20:00 2 MG Morphine Sulfate (morPHINE 4MG SYG) 2 mg Q4H PRN IVP SEVERE PAIN (7-10) 07/09/24 19:30 07/10/24 19:01 DC Ondansetron HCl (zoFRAN 4MG INJ) 4 mg Q6H PRN IV NAUSEA/VOMITING 07/09/24 19:30 08/08/24 19:29 Pantoprazole Sodium (PROTonix 40MG TAB) 40 mg DAILY PO 07/12/24 09:00 08/11/24 08:59 Piperacillin Sod/ Tazobactam Sod (Zosyn 3.375gm+NS 50ml) 3.375 gm Q12H IV 07/12/24 05:00 07/12/24 04:51 DC Piperacillin Sod/ Tazobactam Sod (Zosyn 3.375gm+NS 50ml) 3.375 gm ZOSY8 IV 07/09/24 21:00 07/19/24 20:59 07/13/24 04:48 3.375 GM Potassium Chloride 100 ml @ 50 mls/hr AD PRN IV POTASSIUM PROTOCOL 07/13/24 06:30 08/12/24 06:29 07/13/24 08:37 50 MLS/HR Potassium Chloride 100 ml @ 50 mls/hr PROTOCOL IV 07/13/24 07:30 07/13/24 07:14 DC Potassium Chloride 100 ml @ 50 mls/hr PROTOCOL IV 07/13/24 11:00 07/13/24 07:14 DC Potassium Chloride 100 ml @ 50 mls/hr PROTOCOL IV 07/13/24 16:00 07/13/24 07:14 DC Quetiapine Fumarate (SEROquel 25 mg TAB) 50 mg HS PO 07/12/24 21:00 08/11/24 20:59 Sertraline HCl (ZOloft 50 mg tab) 150 mg DAILY PO 07/11/24 09:00 08/10/24 08:59 Simvastatin (zoCOR) 20 mg HS PO 07/12/24 21:00 08/11/24 20:59 Sodium Chloride 1,000 ml @ 500 mls/hr Q2H IV 07/09/24 17:34 07/10/24 01:15 DC 07/09/24 19:34 500 MLS/HR Spironolactone (Aldactone 25mg) 25 mg DAILY PO 07/12/24 09:00 07/12/24 04:49 DC Sucralfate (Carafate) 1 gm TID PO 07/12/24 09:00 08/11/24 08:59 Vitamin B Complex (Vitamin B-12) 1,000 mcg DAILY PO 07/12/24 09:00 08/11/24 08:59 DIAGNOSTICS / RADIOLOGY: [ ] ASSESSMENT: [1. Left upper and lower lobe aspiration pneumonia POA 2 small pericardial effusion per 2D echo POA 3. Uncontrolled Hypertension POA 4. Hyperlipidemia POA 5. History of anasarca POA 6. Severe protein calorie malnutrition POA 7. Bed-bound x6 months POA 8. Depression likely adjustment reaction to severe health decline over the last six months POA 9. Leukopenia POA 10. History of orthostatic hypotension POA 11. Esophageal stricture history 12. Status post gastric bypass, patient not a candidate for PEG tube placement 13. hypothyroidism POA 14. Macrocytic anemia, POA 15. B12 deficiency on oral replacement POA Perforation of esophagus per CT abdomen/pelvis POA Esophageal dysfunction per CT abdomen/chest POA Acute on chronic diastolic heart failure 2D echo EF 60 65% stage I diastolic dysfunction ] PLAN: [Continue Zosyn and doxycycline for multifocal pneumonia. Would also do breathing treatments as needed around the clock while awake. Along with gentle pulmonary physiotherapy. Cardiology give a clearance for EGD EGD showed perforation of esophagus, dyspnea, esophageal dysfunction Pending esophagram with possible stent placement 07/14/[address] scan was discussed with Cardiology and it turns out that the patient actually has a larger pleural effusion which may have been what the radiologist was mistaken for pericardial effusion the pericardial effusion is clinically insignificant. We will resume her home medications which she states are Thyroid, high blood pressure, and for high cholesterol. We will go ahead and increase her sertraline from 100-150 mg daily. Urine culture final negative Blood culture -48 hours As per GI patient is pending esophagram with a possible stent placement on Friday Patient will receive 60 mEq potassium Patient will receive 2 g of magnesium. Patient will receive albumin ] ATTESTATION BY PHYSICIAN I have seen and examined the patient. I reviewed the documentation, medical decision making, and treatment plan as noted by the mid-level provider above. I agree with the findings and plan of care. LELE JOHNSON MD, KATARZYNA B CUSTOMER CARE VOICE CONSULTANT Jul 13, 2024 09:31
[2024-07-13] MEDS: furoSEMIDE 40MG VIAL IV ONE (09:46)
--- NOTE | 2024-07-13 10:18 | PN ---
GASTROENTEROLOGY PROGRESS NOTE Date of Visit: Jul 13, 2024 Time of Visit: 10:18 Events / Notes: [ ] Review of Systems: CONSTITUTIONAL: No malaise or change in sensation of wellbeing. ENMT: No rhinorrhea, otorrhea, sinus pain, ear ache. CARDIOVASCULAR: No angina, palpitations, orthopnea or paroxysmal dyspnea. RESPIRATORY: No SOB. GASTROINTESTINAL: No abdominal pain, nausea, vomiting, diarrhea, hematemesis, melena or change in the patient's habitual bowel movements consistency/number. GENITOURINARY: No dysuria, hematuria or change in bladder continence. MUSCULOSKELETAL: No new muscle pain or decrease in muscular strength. No new joint swelling, redness or tenderness. SKIN: No new rash. Physical Exam: GEN: Awake, alert, oriented in person, time and place, and in no acute distress. HEENT: No sinus tenderness. Tympanic membranes were not examined. No rhinorrhea. Oral pharyngeal mucosa is pink, moist and within normal limits. Neck is supple with no cervical lymphadenopathy, thyromegaly or JVD. CHEST: Inspection, palpation and percussion of the chest were unremarkable. Lung auscultation revealed normal breath sounds bilaterally. CARDIAC: PMI is within normal limits. Heart sounds are regular. Normal S1, S2. No gallop or murmur. ABD: Soft, non-tender and not distended. No peritoneal signs on palpation. No organomegaly. Normal bowel sounds. EXT: No cyanosis or clubbing. No edema. SKIN: Intact. No rashes. JOINTS: No evidence of synovitis or acute arthritis. NEURO: Alert and oriented to name, place and person. Cranial nerve examination is unremarkable. No focal motor deficits. Normal speech. Gait is normal. Strength is normal. Vital Signs (last 8hr) Date Time Temp Pulse Resp B/P (MAP) Pulse Ox O2 Delivery O2 Flow Rate FiO2 07/13/24 09:50 96 Room Air* 0 21 07/13/24 07:11 72 18 N/A Room Air 21 07/13/24 07:09 72 18 07/13/24 07:00 98.4 80 17 129/79 96 Room Air 07/13/24 03:33 98.8 71 16 130/84 96 Room Air Laboratory: [ ] Laboratory: Test 07/13/24 06:23 07/13/24 03:30 07/12/24 15:48 07/12/24 13:20 Range/Units Whole Blood Glucose 83 70-110 MG/DL White Blood Count 2.7 #L 4.8-10.8 K/uL Red Blood Count 2.58 L 4.00-5.50 MIL/uL Hemoglobin 8.4 L 12.0-16.0 g/dL Hematocrit 27.9 L 36-48 % Mean Corpuscular Volume 108.1 H 79-99 fL Mean Corpuscular Hemoglobin 32.6 27.0-33.0 pg Mean Corpuscular Hemoglobin Concent 30.1 L 32.0-36.0 g/dL Red Cell Distribution Width 19.9 H 11.0-15.5 % Platelet Count 195 130-400 K/uL Mean Platelet Volume 10.3 7.5-10.5 fL Immature Granulocyte % (Auto) 0.8 0-1 % Neutrophils (%) (Auto) 44.7 40.0-77.0 % Lymphocytes (%) (Auto) 42.5 21.0-51.0 % Monocytes (%) (Auto) 8.6 3.0-13.0 % Eosinophils (%) (Auto) 2.6 0.0-8.0 % Basophils (%) (Auto) 0.8 0.0-5.0 % Neutrophils # (Auto) 1.2 L 1.8-7.7 K/uL Lymphocytes # (Auto) 1.1 1.0-4.8 K/uL Monocytes # (Auto) 0.2 0.1-1.0 K/uL Eosinophils # (Auto) 0.07 0.00-0.70 K/uL Basophils # (Auto) 0.02 0.00-0.20 K/uL Absolute Immature Granulocyte (auto 0.02 0-1 K/uL Nucleated Red Blood Cells 0.0 0.0-0.19 % White Cell Morphology Comment See comments Sodium Level 137 136-145 mmol/L Potassium Level 2.6 *L 3.5-5.1 mmol/L Chloride Level 105 101-111 mmol/L Carbon Dioxide Level 23 21-32 mmol/L Blood Urea Nitrogen 4 L 7-18 mg/dL Creatinine 0.3 L 0.5-1.0 mg/dL Glomerular Filtration Rate Calc 116 >90 mL/min Random Glucose 74 70-105 mg/dL Total Calcium 7.4 L 8.5-10.1 mg/dL Magnesium Level 1.60 L 1.80-2.40 mg/dL Total Bilirubin 0.2 0.2-1.0 mg/dL Aspartate Amino Transf (AST/SGOT) 30 10-37 U/L Alanine Aminotransferase (ALT/SGPT) 14 12-78 U/L Alkaline Phosphatase 49 L 50-136 U/L Total Protein 4.0 L 6.0-8.3 g/dL Albumin 1.0 L 3.5-5.0 g/dL Prothrombin Time 11.5 9.6-11.6 SEC Prothromb Time International Ratio 1.09 0.85-1.15 Activated Partial Thromboplast Time 35.5 26.3-35.5 SEC Segmented Neutrophils % 63 40-70 % Lymphocytes % (Manual) 34 22-44 % Eosinophils % (Manual) 1 1-6 % Differential Comment MANUAL DIFFERENTIAL Reactive Lymphocytes 2 H 0-0 % Platelet Morphology Comment ADEQUATE Red Blood Cell Morphology See comments Current Medications Medications (Trade) Dose Ordered Sig/Jennifer Route PRN Reason Start Time Stop Time Status Last Admin Dose Admin Acetaminophen (TYLenol 650MG SUPPOSITORY) 650 mg Q6H PRN RC MILD PAIN (1-3) 07/09/24 19:30 08/08/24 19:29 Albumin Human 50 ml @ 0 mls/hr AD IV 07/13/24 07:30 07/13/24 07:17 DC Albuterol (DUOneb) 1 UDVIAL [id number] IH 07/10/24 00:00 08/09/24 00:00 07/13/24 07:08 1 UDVIAL Bisacodyl (DulcoLAX 5MG TAB) 5 mg AM PO 07/12/24 09:00 08/11/24 08:59 Ceftriaxone Sodium (ROCEphine 1G INJ) 1 gm ONCE IVPB 07/09/24 19:19 07/09/24 23:59 DC 07/09/24 19:19 1 GM Dextrose (D50w) 50 ml AD PRN IV HYPOGLYCEMIA PROTOCOL 07/13/24 06:00 08/12/24 05:59 Dextrose (D50w) 50 ml AD PRN IV HYPOGLYCEMIA PROTOCOL 07/13/24 06:30 07/13/24 06:11 DC Dextrose/Lactated Ringer's 1,000 ml @ 50 mls/hr Q20H IV 07/11/24 20:00 08/10/24 19:59 07/12/24 20:10 50 MLS/HR Doxycycline Hyclate 250 ml @ 125 mls/hr Q12H IV 07/12/24 05:00 07/22/24 04:59 07/13/24 04:47 125 MLS/HR Enoxaparin Sodium (Lovenox) 40 mg DAILY SQ 07/10/24 09:00 07/10/24 19:01 DC 07/10/24 10:15 40 MG Ergocalciferol (Drisdol) 1,250 unit AM PO 07/12/24 09:00 07/12/24 07:47 DC Famotidine (Pepcid 20mg Vial) 20 mg DAILY IV 07/10/24 09:00 07/12/24 07:38 DC 07/11/24 09:00 20 MG Fludrocortisone Acetate (Fludrocortisone Acetate) 0.1 mg DAILY PO 07/12/24 09:00 08/11/24 08:59 Furosemide (LASix 20MG TAB) 20 mg DAILY PO 07/12/24 09:00 07/12/24 04:49 DC Glucagon (Glucagon 1mg Kit) 1 mg AD PRN IM HYPOGLYCEMIA PROTOCOL 07/13/24 06:00 08/12/24 05:59 Glucagon (Glucagon 1mg Kit) 1 mg AD PRN IM HYPOGLYCEMIA PROTOCOL 07/13/24 06:30 07/13/24 06:11 DC Home Med (Home Medication) (Folic Acid 1 CAP) DAILY PO 07/12/24 09:00 08/11/24 08:59 Home Med (Home Medication) ([Azasan] 50 MG) AM PO 07/12/24 09:00 08/11/24 08:59 Hydralazine HCl (APRESOLine 20MG INJ) 10 mg Q6H PRN IV For:SBP above 160;DBP above 90 07/09/24 19:30 08/08/24 19:29 Lactated Ringer's 1,000 ml @ 75 mls/hr [id number] IV 07/09/24 19:30 07/11/24 19:49 DC 07/10/24 21:39 75 MLS/HR Levothyroxine Sodium (SYNTHroid 50MCG TAB) 50 mcg SYN PO 07/13/24 06:30 08/12/24 06:29 Loratadine (LORATAdine 10 mg) 10 mg DAILY PO 07/12/24 09:00 08/11/24 08:59 Magnesium Sulfate 50 ml @ 0 mls/hr PROTOCOL IV 07/13/24 07:30 07/13/24 07:14 DC Magnesium Sulfate 50 ml @ 0 mls/hr PROTOCOL PRN IV MAGNESIUM PROTOCOL 07/13/24 06:00 08/12/24 05:59 07/13/24 05:57 25 MLS/HR Midodrine (PROAMatine 5 MG TABLET) 5 mg TID PO 07/12/24 09:00 08/11/24 08:59 Miscellaneous Medication (Esomeprazole Magnesium ) 1 cap DAILY PO 07/12/24 09:00 07/12/24 07:38 DC Miscellaneous Medication (Famotidine ) 1 tab DAILY PO 07/12/24 09:00 07/12/24 07:38 DC Miscellaneous Medication (Ondansetron HCl ) 1 tab TID PO 07/12/24 09:00 07/12/24 07:47 DC Miscellaneous Medication (Sertraline HCl ) 1 tab DAILY PO 07/12/24 09:00 07/12/24 07:41 DC Montelukast Sodium (SinguLAIR) 10 mg DAILY PO 07/12/24 09:00 08/11/24 08:59 Morphine Sulfate (morPHINE 2MG SYG) 2 mg Q4H PRN IVP SEVERE PAIN (7-10) 07/10/24 19:30 07/16/24 19:29 07/13/24 09:47 2 MG Morphine Sulfate (morPHINE 4MG SYG) 2 mg Q4H PRN IVP SEVERE PAIN (7-10) 07/09/24 19:30 07/10/24 19:01 DC Ondansetron HCl (zoFRAN 4MG INJ) 4 mg Q6H PRN IV NAUSEA/VOMITING 07/09/24 19:30 08/08/24 19:29 Pantoprazole Sodium (PROTonix 40MG TAB) 40 mg DAILY PO 07/12/24 09:00 08/11/24 08:59 Piperacillin Sod/ Tazobactam Sod (Zosyn 3.375gm+NS 50ml) 3.375 gm Q12H IV 07/12/24 05:00 4/7/25 04:51 DC Piperacillin Sod/ Tazobactam Sod (Zosyn 3.375gm+NS 50ml) 3.375 gm ZOSY8 IV 07/09/24 21:00 07/19/24 20:59 07/13/24 04:48 3.375 GM Potassium Chloride 100 ml @ 50 mls/hr AD PRN IV POTASSIUM PROTOCOL 07/13/24 06:30 08/12/24 06:29 07/13/24 09:58 50 MLS/HR Potassium Chloride 100 ml @ 50 mls/hr PROTOCOL IV 07/13/24 07:30 07/13/24 07:14 DC Potassium Chloride 100 ml @ 50 mls/hr PROTOCOL IV 07/13/24 11:00 07/13/24 07:14 DC Potassium Chloride 100 ml @ 50 mls/hr PROTOCOL IV 07/13/24 16:00 07/13/24 07:14 DC Quetiapine Fumarate (SEROquel 25 mg TAB) 50 mg HS PO 07/12/24 21:00 08/11/24 20:59 Sertraline HCl (ZOloft 50 mg tab) 150 mg DAILY PO 07/11/24 09:00 08/10/24 08:59 Simvastatin (zoCOR) 20 mg HS PO 07/12/24 21:00 08/11/24 20:59 Sodium Chloride 1,000 ml @ 500 mls/hr Q2H IV 07/09/24 17:34 07/10/24 01:15 DC 07/09/24 19:34 500 MLS/HR Spironolactone (Aldactone 25mg) 25 mg DAILY PO 07/12/24 09:00 07/12/24 04:49 DC Sucralfate (Carafate) 1 gm TID PO 07/12/24 09:00 08/11/24 08:59 Vitamin B Complex (Vitamin B-12) 1,000 mcg DAILY PO 07/12/24 09:00 08/11/24 08:59 Diagnostics / Radiology: [COPY/PASTE HERE IF NO REPORTS PLEASE DELETE SECTION] Assessment: Esophageal stricture Gastric bypass Plan: EGD with stent and overstitch Friday Continue GI prophylaxis Avoid NSAIDs Antireflux measures Monitor H&H and transfuse as needed Call with questions, concerns or change in clinical status Patient to follow-up at clinic post discharge Thank you for this consult MALA [facility]LES [facility] Jul 13, 2024 10:18
--- NOTE | 2024-07-13 13:37 | NUR ---
URINE- MDRO+ YEFRI MARTINEZ MADE AWARE OF LAB CALLED FOR A POSITIVE MDRO IN THE URINE & AWAITING SENSITIVITIES... Addendum: 07/13/24 at 1413 by YAW HOLLINGSWORTH RN RN Amended: Links added.
--- NOTE | 2024-07-13 13:41 | NUR ---
CARDIOLOGY CONSULT PLACED CALL TO DR WALDEN REGARDING CONSULT OVER THE WEEKEND FOR PERICARDIAL EFFUSION, BUT SAID HE SPOKE (1:1) W/ DR STOVALL REGARDING PATIENT HAVING NORMAL EF & NO PERICARDIAL EFFUSION NOTED IN ECHOCARDIOGRAM. CARDIOLOGY CONSULT NOT NEEDED PER DR WALDEN. Addendum: 07/13/24 at 1343 by YAW HOLLINGSWORTH RN RN Amended: Links added.
--- NOTE | 2024-07-13 14:58 | NUR ---
Held pending procedure per EMR, pt also with critical labs this date.
[2024-07-13] MEDS ORDERED: cefTAZidime PENTAHYDRATE 2 GM/VIAL IVPB SCH (15:00)
[2024-07-13] MEDS: MEROPENEM 1GM 1 GM VIAL IVPB SCH (15:22)
[2024-07-13] MEDS: DEXTROSE 50%-WATER 50 ML DISP.SYRIN IV PRN (16:24)
[2024-07-13 18:11] LABS: MAGNESIUM 1.7 mg/dL (1.80-2.40)
[2024-07-13 18:14] LABS: POTASSIUM 2.6 mmol/L (3.5-5.1)
[2024-07-13] MEDS ORDERED: metRONIDazole 500MG/100ML BAG 100 ML IVPB SCH (22:00)
[2024-07-14] VITALS (32 sets, daily range): BP systolic 106–148; BP diastolic 68–89; PULSE 70–85; RESP 15–18; TEMP 97.6–98.9; O2SAT 92–98
--- NOTE | 2024-07-14 08:10 | PN ---
[facility] PROGRESS NOTE Date of Service: Jul 14, 2024 Time of Service: 08:05 Dr. Johnson 69-year-old female admitted with multifocal pneumonia and pleural effusion SUBJECTIVE: [ Hospital day 1. For 69-year-old female admitted with multifocal pneumonia and pericardial effusion. On further history with the patient as well as her spouse who is my patient at the [facility]. Patient has had problems with chronic esophageal and sounds like gastric strictures for the past six months. Patient has been seeing Dr. Ki Martinez [place] gastrointestinal specialist and Dr. Philip at the same group and has had multiple dilations including balloon di lation on about four or five occasions. Patient's weight has gone down from about just under 200 lb to less than 100 lb but she has recently gained about 27 lb back per her spouse. Patient has been in and out of the [facility] for rehab and [facility]. She had a complication and in esophageal tear that was a complication from too much pressure with a balloon dilator. I asked her if she bled significantly as she is on blood thinners but he has had no. Otherwise the patient states that she has had about a week's worth of a productive cough with brown phlegm no fevers or chills. Patient had a fall approximately six months ago in which a lot of her problems started. She has essentially been nonambulatory since this fall. Although when she was at the long-term they did set her up and do gentle [id number] exercises and even short ambulation with the assistance patient has been bed- bound essentially. She had significant swelling to most of her body and was told this was from malnutrition that has been slowly improving over the last few weeks now that she is able to take by mouth. She has complicating factors in the sense that she fell and destroyed her implants and upper anchor for her dentures and so has had to have pureed food only 07/11/2024: No significant interval events reported by nursing staff. Patient reports no pain or shortness for breath. Her morning labs were reviewed 07/12/24 patient was seen by nurse practitioner and physician during rounding in room 230. Patient was comfortably lying in bed. Urine culture final negative. Blood culture 48 hours negative so far. Patient was evaluated by hospital manager and was cleared for EGD. Patient was evaluated by Dr. Moon and EGD was performed, which showed benign appearing esophageal stenosis. And nonbleeding perforation was found in the esophagus. Afterwards we found out that patient belongs to Dr. Monroy so the care was change to other group of GI. Patient is pending possible esophagram was evaluated by other GI group. CT chest/abdomen showed aspiration pneumonia small pericardial effusion, small abdominal ascites and anasarca. 2D echo EF 60 65% stage I diastolic dysfunction large left pleural effusion. As per GI patient is not a candidate for PEG tube due to history of a bypass. Patient has bilateral lower extremity swelling we will order 20 mg of Lasix IV one dose only. We will do CBC, CMP and magnesium stat, as well we will repeat morning labs. Patient came from [facility] per family member at the bedside would like to return done once patient medically cleared. We will continue to monitor patient in the meantime. A.m. labs 07/13 patient was seen by nurse practitioner and physician during rounding in room 230. No family member at the bedside at this moment. Patient was evaluated by the artist agent and per chest x-ray no pneumothorax is visible. No chest needed at this moment. As per GI patient is pending esophagram with possible stent placement on Friday07/14/2024. Patient will receive 60 mEq of potassium in total for potassium of 2.6. Patient will also receive 2 g of magnesium for magnesium 1.6 today in a.m.. Today albumin is 1.0 patient will receive albumin as well. PT working with the patient. Final urine culture negative. Blood culture-48 hours. We will continue to monitor patient in the meantime. A.m. labs. 07/14 patient was seen by nurse practitioner and physician during rounding. Family member at the bedside was informed regards to further plan. Patient is pending esophagram with stent placement today. Once cleared the patient will be able to eat patient to be discharged to [facility]. Magnesium today 1.7 patient will receive 2 g of magnesium. We are pending morning lab results. RN instructed to cover potassium if low per protocol. We will continue to monitor patient in the meantime. A.m. labs.] REVIEW OF SYSTEMS CONSTITUTIONAL: Denies fevers, chills, or night sweats. wt loss as described above of about 80lbs in 6 months NEUROLOGICAL: no n/t, no hx of strokes ENT: No hearing loss, otalgia, otorrhea, rhinitis, rhinorrhea, or sore throat.+very raspy voices CARDIOVASCULAR: Denies any exertional angina, dyspnea on exertion, orthopnea, paroxysmal nocturnal dyspnea, palpitations, life-threatening arrhythmias, claudication. GASTROINTESTINAL: See history of present illness, + esophageal stenosis and dysphagia for six months. Positive nausea and intermittent vomiting, regular bowel movements no diarrhea no bloody stools GENITOURINARY: Denies increased frequency, no urgency or pain with urination. Patient states he is continent to both bowel and bladder. ENDOCRINOLOGIC: Denies polyuria, polydipsia, polyphagia or heat/cold intolerances. HEMATOLOGIC: Patient did have a clot in her upper extremity a few months back. That resolved on its own per the patient's spouse, Cedrick. ONCOLOGIC: Denies personal history of malignancy. DERMATOLOGIC: Easy bruisability with multiple ecchymotic areas to the neck. PSYCHIATRIC: Denies any suicidal or homicidal ideation. Denies hallucinations. Positive depressive symptomatology because of health decline with the last six months. PHYSICAL EXAM GENERAL APPEARANCE: The patient is awake, alert, and oriented, in no acute c ardiopulmonary distress. Very cachectic appearing 69-year-old female appearing much older than stated age NEUROLOGICAL: Cranial nerves II-XII grossly intact. Motor is 4+/5 in bilateral upper and lower extremities proximal to distal. No sensory deficits. HEENT: Face is symmetric. Pupils are equal and reactive. Extraocular movements are intact. TMs are pearly riley and external auditory canals are without inflammation. NECK: Supple. No JVD. No thyromegaly. No submental, submandibular, pre- /postauricular, occipital or supraclavicular lymphadenopathy. CHEST: Normal chest expansion. LUNGS: Bilateral rhonchi noted to the mid and lower lung adams, no wheezes or rales noted. CARDIOVASCULAR: Regular. S1 and S2 normal. No appreciable rubs, murmurs or gallops. ABDOMEN: Soft, nontender, and nondistended. There is no rebound, voluntary guarding, or rigidity. : Deferred. No Manuel. EXTREMITIES: Non-edematous and not cyanotic. No clubbing. Good capillary refill. Dorsalis pedis pulse present to the right foot left foot dorsalis pedis very slightly palpable but cap refill brisk posterior tibial pulses felt x2 SKIN: No skin breakdown. Vital Signs (last 8hr) Date Time Temp Pulse Resp B/P (MAP) Pulse Ox O2 Delivery O2 Flow Rate FiO2 07/14/24 06:47 78 18 07/14/24 06:47 78 18 N/A Room Air 21 07/14/24 03:42 98.6 82 18 148/75 96 Room Air LABS: Laboratory: Test 07/14/24 05:03 07/13/24 17:53 07/13/24 15:49 07/13/24 03:30 Range/Units Whole Blood Glucose 74 70-110 MG/DL Potassium Level 2.6 *L 3.5-5.1 mmol/L Magnesium Level 1.70 L 1.80-2.40 mg/dL Bedside Glucose Comment Notified Nurse White Blood Count 2.7 #L 4.8-10.8 K/uL Red Blood Count 2.58 L 4.00-5.50 MIL/uL Hemoglobin 8.4 L 12.0-16.0 g/dL Hematocrit 27.9 L 36-48 % Mean Corpuscular Volume 108.1 H 79-99 fL Mean Corpuscular Hemoglobin 32.6 27.0-33.0 pg Mean Corpuscular Hemoglobin Concent 30.1 L 32.0-36.0 g/dL Red Cell Distribution Width 19.9 H 11.0-15.5 % Platelet Count 195 130-400 K/uL Mean Platelet Volume 10.3 7.5-10.5 fL Immature Granulocyte % (Auto) 0.8 0-1 % Neutrophils (%) (Auto) 44.7 40.0-77.0 % Lymphocytes (%) (Auto) 42.5 21.0-51.0 % Monocytes (%) (Auto) 8.6 3.0-13.0 % Eosinophils (%) (Auto) 2.6 0.0-8.0 % Basophils (%) (Auto) 0.8 0.0-5.0 % Neutrophils # (Auto) 1.2 L 1.8-7.7 K/uL Lymphocytes # (Auto) 1.1 1.0-4.8 K/uL Monocytes # (Auto) 0.2 0.1-1.0 K/uL Eosinophils # (Auto) 0.07 0.00-0.70 K/uL Basophils # (Auto) 0.02 0.00-0.20 K/uL Absolute Immature Granulocyte (auto 0.02 0-1 K/uL Nucleated Red Blood Cells 0.0 0.0-0.19 % White Cell Morphology Comment See comments Sodium Level 137 136-145 mmol/L Chloride Level 105 101-111 mmol/L Carbon Dioxide Level 23 21-32 mmol/L Blood Urea Nitrogen 4 L 7-18 mg/dL Creatinine 0.3 L 0.5-1.0 mg/dL Glomerular Filtration Rate Calc 116 >90 mL/min Random Glucose 74 70-105 mg/dL Total Calcium 7.4 L 8.5-10.1 mg/dL Total Bilirubin 0.2 0.2-1.0 mg/dL Aspartate Amino Transf (AST/SGOT) 30 10-37 U/L Alanine Aminotransferase (ALT/SGPT) 14 12-78 U/L Alkaline Phosphatase 49 L 50-136 U/L Total Protein 4.0 L 6.0-8.3 g/dL Albumin 1.0 L 3.5-5.0 g/dL Test 07/12/24 15:48 07/12/24 13:20 Range/Units Prothrombin Time 11.5 9.6-11.6 SEC Prothromb Time International Ratio 1.09 0.85-1.15 Activated Partial Thromboplast Time 35.5 26.3-35.5 SEC Segmented Neutrophils % 63 40-70 % Lymphocytes % (Manual) 34 22-44 % Eosinophils % (Manual) 1 1-6 % Differential Comment MANUAL DIFFERENTIAL Reactive Lymphocytes 2 H 0-0 % Platelet Morphology Comment ADEQUATE Red Blood Cell Morphology See comments Current Medications Medications (Trade) Dose Ordered Sig/Jennifer Route PRN Reason Start Time Stop Time Status Last Admin Dose Admin Acetaminophen (TYLenol 650MG SUPPOSITORY) 650 mg Q6H PRN RC MILD PAIN (1-3) 07/09/24 19:30 08/08/24 19:29 Albumin Human 50 ml @ 0 mls/hr AD IV 07/13/24 07:30 07/13/24 07:17 DC Albuterol (DUOneb) 1 UDVIAL [id number] IH 07/10/24 00:00 08/09/24 00:00 07/14/24 06:47 1 UDVIAL Bisacodyl (DulcoLAX 5MG TAB) 5 mg AM PO 07/12/24 09:00 08/11/24 08:59 Ceftazidime (ForTAZ/TAZidime) 2 gm Q8H IVPB 07/13/24 15:00 07/13/24 15:06 DC Ceftriaxone Sodium (ROCEphine 1G INJ) 1 gm ONCE IVPB 07/09/24 19:19 07/09/24 23:59 DC 07/09/24 19:19 1 GM Dextrose (D50w) 50 ml AD PRN IV HYPOGLYCEMIA PROTOCOL 07/13/24 06:00 08/12/24 05:59 07/13/24 16:24 50 ML Dextrose (D50w) 50 ml AD PRN IV HYPOGLYCEMIA PROTOCOL 07/13/24 06:30 07/13/24 06:11 DC Dextrose/Lactated Ringer's 1,000 ml @ 50 mls/hr Q20H IV 07/11/24 20:00 08/10/24 19:59 07/13/24 13:00 50 MLS/HR Doxycycline Hyclate 250 ml @ 125 mls/hr Q12H IV 07/12/24 05:00 07/22/24 04:59 07/14/24 05:12 125 MLS/HR Enoxaparin Sodium (Lovenox) 40 mg DAILY SQ 07/10/24 09:00 07/10/24 19:01 DC 07/10/24 10:15 40 MG Ergocalciferol (Drisdol) 1,250 unit AM PO 07/12/24 09:00 07/12/24 07:47 DC Famotidine (Pepcid 20mg Vial) 20 mg DAILY IV 07/10/24 09:00 07/12/24 07:38 DC 07/11/24 09:00 20 MG Fludrocortisone Acetate (Fludrocortisone Acetate) 0.1 mg DAILY PO 07/12/24 09:00 08/11/24 08:59 Furosemide (LASix 20MG TAB) 20 mg DAILY PO 07/12/24 09:00 07/12/24 04:49 DC Glucagon (Glucagon 1mg Kit) 1 mg AD PRN IM HYPOGLYCEMIA PROTOCOL 07/13/24 06:00 08/12/24 05:59 Glucagon (Glucagon 1mg Kit) 1 mg AD PRN IM HYPOGLYCEMIA PROTOCOL 07/13/24 06:30 07/13/24 06:11 DC Home Med (Home Medication) (Folic Acid 1 CAP) DAILY PO 07/12/24 09:00 08/11/24 08:59 Home Med (Home Medication) ([Azasan] 50 MG) AM PO 07/12/24 09:00 08/11/24 08:59 Hydralazine HCl (APRESOLine 20MG INJ) 10 mg Q6H PRN IV For:SBP above 160;DBP above 90 07/09/24 19:30 08/08/24 19:29 Lactated Ringer's 1,000 ml @ 75 mls/hr [id number] IV 07/09/24 19:30 07/11/24 19:49 DC 07/10/24 21:39 75 MLS/HR Levothyroxine Sodium (SYNTHroid 50MCG TAB) 50 mcg SYN PO 07/13/24 06:30 08/12/24 06:29 Loratadine (LORATAdine 10 mg) 10 mg DAILY PO 07/12/24 09:00 08/11/24 08:59 Magnesium Sulfate 50 ml @ 0 mls/hr PROTOCOL IV 07/13/24 07:30 07/13/24 07:14 DC Magnesium Sulfate 50 ml @ 0 mls/hr PROTOCOL PRN IV MAGNESIUM PROTOCOL 07/13/24 06:00 08/12/24 05:59 07/13/24 18:25 25 MLS/HR Meropenem (Merrem 1gm) 1 gm Q8H IVPB 07/13/24 16:00 07/23/24 15:59 07/14/24 00:43 1 GM Metronidazole/ Sodium Chloride 100 ml @ 100 mls/hr Q8H6 IVPB 07/13/24 22:00 07/13/24 15:06 DC Midodrine (PROAMatine 5 MG TABLET) 5 mg TID PO 07/12/24 09:00 08/11/24 08:59 Miscellaneous Medication (Esomeprazole Magnesium ) 1 cap DAILY PO 07/12/24 09:00 07/12/24 07:38 DC Miscellaneous Medication (Famotidine ) 1 tab DAILY PO 07/12/24 09:00 07/12/24 07:38 DC Miscellaneous Medication (Ondansetron HCl ) 1 tab TID PO 07/12/24 09:00 07/12/24 07:47 DC Miscellaneous Medication (Sertraline HCl ) 1 tab DAILY PO 07/12/24 09:00 07/12/24 07:41 DC Montelukast Sodium (SinguLAIR) 10 mg DAILY PO 07/12/24 09:00 08/11/24 08:59 Morphine Sulfate (morPHINE 2MG SYG) 2 mg Q4H PRN IVP SEVERE PAIN (7-10) 07/10/24 19:30 07/16/24 19:29 07/13/24 21:13 2 MG Morphine Sulfate (morPHINE 4MG SYG) 2 mg Q4H PRN IVP SEVERE PAIN (7-10) 07/09/24 19:30 07/10/24 19:01 DC Ondansetron HCl (zoFRAN 4MG INJ) 4 mg Q6H PRN IV NAUSEA/VOMITING 07/09/24 19:30 08/08/24 19:29 Pantoprazole Sodium (PROTonix 40MG TAB) 40 mg DAILY PO 07/12/24 09:00 08/11/24 08:59 Piperacillin Sod/ Tazobactam Sod (Zosyn 3.375gm+NS 50ml) 3.375 gm Q12H IV 07/12/24 05:00 07/12/24 04:51 DC Piperacillin Sod/ Tazobactam Sod (Zosyn 3.375gm+NS 50ml) 3.375 gm ZOSY8 IV 07/09/24 21:00 07/13/24 14:39 DC 07/13/24 12:51 3.375 GM Potassium Chloride 100 ml @ 50 mls/hr AD PRN IV POTASSIUM PROTOCOL 07/13/24 06:30 08/12/24 06:29 07/14/24 00:44 50 MLS/HR Potassium Chloride 100 ml @ 50 mls/hr PROTOCOL IV 07/13/24 07:30 07/13/24 07:14 DC Potassium Chloride 100 ml @ 50 mls/hr PROTOCOL IV 07/13/24 11:00 07/13/24 07:14 DC Potassium Chloride 100 ml @ 50 mls/hr PROTOCOL IV 07/13/24 16:00 07/13/24 07:14 DC Quetiapine Fumarate (SEROquel 25 mg TAB) 50 mg HS PO 07/12/24 21:00 08/11/24 20:59 Sertraline HCl (ZOloft 50 mg tab) 150 mg DAILY PO 07/11/24 09:00 08/10/24 08:59 Simvastatin (zoCOR) 20 mg HS PO 07/12/24 21:00 08/11/24 20:59 Sodium Chloride 1,000 ml @ 500 mls/hr Q2H IV 07/09/24 17:34 07/10/24 01:15 DC 07/09/24 19:34 500 MLS/HR Spironolactone (Aldactone 25mg) 25 mg DAILY PO 07/12/24 09:00 07/12/24 04:49 DC Sucralfate (Carafate) 1 gm TID PO 07/12/24 09:00 08/11/24 08:59 Vitamin B Complex (Vitamin B-12) 1,000 mcg DAILY PO 07/12/24 09:00 08/11/24 08:59 DIAGNOSTICS / RADIOLOGY: [ ] ASSESSMENT: [1. Left upper and lower lobe aspiration pneumonia POA 2 small pericardial effusion per 2D echo POA 3. Uncontrolled Hypertension POA 4. Hyperlipidemia POA 5. History of anasarca POA 6. Severe protein calorie malnutrition POA 7. Bed-bound x6 months POA 8. Depression likely adjustment reaction to severe health decline over the last six months POA 9. Leukopenia POA 10. History of orthostatic hypotension POA 11. Esophageal stricture history 12. Status post gastric bypass, patient not a candidate for PEG tube placement 13. hypothyroidism POA 14. Macrocytic anemia, POA 15. B12 deficiency on oral replacement POA Perforation of esophagus per CT abdomen/pelvis POA Esophageal dysfunction per CT abdomen/chest POA Acute on chronic diastolic heart failure 2D echo EF 60 65% stage I diastolic dysfunction Acute complicated cystitis POA Pseudomonas aeruginosa urine culture ] PLAN: [Zosyn and doxycycline discontinue Merrem started for Pseudomonas aeruginosa in urine Would also do breathing treatments as needed around the clock while awake. Along with gentle pulmonary physiotherapy. Cardiology give a clearance for EGD EGD showed perforation of esophagus, dyspnea, esophageal dysfunction Pending esophagram with possible stent placement 07/14/[address] scan was discussed with Cardiology and it turns out that the patient actually has a larger pleural effusion which may have been what the radiologist was mistaken for pericardial effusion the pericardial effusion is clinically insignificant. Home medication resumed We will go ahead and increase her sertraline from 100-150 mg daily. Urine culture final negative Blood culture -48 hours As per GI patient is pending esophagram with a possible stent placement on Friday RN instructed to cover potassium per protocol if lab results of potassium today in a.m. law Patient will receive 2 g of magnesium. ] ATTESTATION BY PHYSICIAN I have seen and examined the patient. I reviewed the documentation, medical decision making, and treatment plan as noted by the mid-level provider above. I agree with the findings and plan of care. LELE JOHNSON MD, [facility] [employer] [employer] Jul 14, 2024 08:09
[2024-07-14 08:37] LABS: BASOPHILS # (AUTO) 0.02 K/uL (0.00-0.20); BASOPHILS % (AUTO) 0.8 % (0.0-5.0); EOSINOPHILS # (AUTO) 0.06 K/uL (0.00-0.70); EOSINOPHILS % (AUTO) 2.5 % (0.0-8.0); HEMATOCRIT 33.8 % (36-48); IMMATURE GRANULOCYTE ABSOLUTE 0.01 K/uL (0-1); LYMPHOCYTES # (AUTO) 0.8 K/uL (1.0-4.8); LYMPHOCYTES % (AUTO) 34.7 % (21.0-51.0); MEAN CORPUSCULAR HEMOGLOBIN 32.5 pg (27.0-33.0); MEAN CORPUSCULAR HGB CONC 30.5 g/dL (32.0-36.0); MEAN CORPUSCULAR VOLUME 106.6 fL (79-99); MONOCYTES # (AUTO) 0.2 K/uL (0.1-1.0); MONOCYTES % (AUTO) 8.5 % (3.0-13.0); NEUTROPHILS # (AUTO) 1.3 K/uL (1.8-7.7); NEUTROPHILS % (AUTO) 53.1 % (40.0-77.0); PLATELET COUNT (AUTO) 218 K/uL (130-400); RED BLOOD CELL COUNT(AUTO) 3.17 MIL/uL (4.00-5.50); RED CELL DISTRIBUTION WIDTH 19.6 % (11.0-15.5); WHITE BLOOD COUNT (AUTO) 2.4 K/uL (4.8-10.8)
[2024-07-14 08:48] LABS: ALBUMIN 1.2 g/dL (3.5-5.0); BILIRUBIN,TOTAL 0.3 mg/dL (0.2-1.0); CREATININE 0.4 mg/dL (0.5-1.0); POTASSIUM 3.8 mmol/L (3.5-5.1); TOTAL PROTEIN, SERUM 4.7 g/dL (6.0-8.3)
[2024-07-14] MEDS: furoSEMIDE 40MG VIAL IV ONE (11:32)
[2024-07-14] MEDS: PANTOPrazole 40 MG/VIAL IVP SCH ×2 (11:38→20:00)
[2024-07-14 11:45] LABS: BASOPHILS % (MANUAL) 1 % (0-2); EOSINOPHILS % (MANUAL) 2 % (1-6); LYMPHOCYTES % (MANUAL) 30 % (22-44); MAN.DIFF COMMENT-IMPRESSION MANUAL DIFFERENTIAL; MONOCYTES % (MANUAL) 2 % (2-9); REACTIVE LYMPHOCYTES 1 % (0-0); SEGMENTED NEUTROPHILS % 64 % (40-70); TOTAL CELLS COUNTED 100
[2024-07-14 11:46] LABS: PLATELET MORPHOLOGY COMMENT ADEQUATE; WBC MORPHOLOGY NORMAL
--- NOTE | 2024-07-14 14:00 | NUR ---
PT follow up note: Patient gone for EGD as per Kat. PT team to follow.
[2024-07-14] MEDS ORDERED: ondanSETRON 4MG INJ ONE (14:35)
[2024-07-14] MEDS ORDERED: proPOFol 10 MG/ML 20ML VIAL IV ONE (14:35)
[2024-07-14] MEDS ORDERED: LIDOCAINE PF 100MG/5ML (2%) SYRINGE 5ML ONE (14:35)
--- NOTE | 2024-07-14 16:25 | NUR ---
Nutrition consult per LOS Reviewed labs, notes, and medications. Pt with D5W 50 ml/hr Q20H, hx of gastric bypass 1991, brain injury ', swallowing difficulty 2 days prior admin, pending esophagram w/ stent placement, last admin 07/14/24, IV fluid, Ca 7.3(L), elevated b12, NPO since 07/10/24 per chart review. Wt via bed scale, liquid loose BM 07/12/24, inconsistent wts, moderate pitting, severe muscle and muscle loss, laceration in calf, 0 ml balance 07/13/24 per nursing. Dextrose @ 50 ml/hr Q20H provides 170 kcals, 50 gm CHO. Meets 10% of Pt's needs. Consider PPN or TPN to meet Pt's protein needs and ~60% of caloric needs. Pt with severe PCM, Supplement thiamin 100 mg/day for 5-7 days + MVI QD for at least 10 days Recommendations: -Advance diet when medically feasible or consider alternate means of nutrition -Monitor BM -If no BM >3 days consider stool softener -Consider probiotics QD per diarrhea if medically feasible -Monitor electrolytes -Replenish electrolytes per protocol -Monitor wts -Reweigh as able -Order Vit D, vit b-12, iron, calcium, vit b1 labs to rule out deficiencies due to Pt's hx of gastric bypass -Provide b-complex + MVI QD if medically feasible due to Pt's hx of gastric bypass -Texture per [employer] recs -Recommend Pt to follow up with PCP -Monitor goals of care RD to follow + available for consult per protocol Addendum: 07/14/24 at [address] Amended: Links added.
--- NOTE | 2024-07-14 16:41 | HMCIMG ---
IMAGE GUIDANCE FOR EGD REASON: DYSPHAGIA, ESOPHAGEAL STENOSIS. COMPARISON: None TECHNIQUE: Fluoroscopic images were obtained by referring physician. FINDINGS: Please see procedure report by the referring physician. IMPRESSION: Intraoperative films.
--- NOTE | 2024-07-14 17:06 | HMCIMG ---
CHEST 1VW HISTORY: Post esophageal stent placement COMPARISON: 07/12/2024 FINDINGS: A frontal projection of the chest was obtained. There are bilateral pulmonary infiltrates suggestive of pulmonary vascular congestion with possible superimposed pneumonitis. The heart is borderline enlarged. All the lines and tubes are again seen in place. No evidence of aortic calcification is seen. IMPRESSION: 1. Bilateral pulmonary infiltrates are seen suggestive of pulmonary vascular congestion with possible superimposed pneumonitis.
[2024-07-14] MEDS: PANTOPrazole 40 MG/VIAL IVP ONE (17:54)
[2024-07-14] MEDS: MEROPENEM 1GM 1 GM VIAL IVPB SCH (20:00)
[2024-07-14] MEDS: CLINIMIX-E 5%AA /D15%W 2000ML 2,000 ML IV ONE (20:01)
--- NOTE | 2024-07-14 20:51 | PN ---
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 She is resting comfortably in no acute respiratory distress. No major overninght events. Pt is pending EGD with over stent . We will follow GI recommendations. for now pt is NPO. We recommend TPP for nutrition for now. she is hemodynamically stable and afebrile. REVIEW OF SYSTEMS: 12 point ROS reviewed with patient. Pertinent positives mentioned above. Otherwi se negative. PHYSICAL EXAM: GENERAL: alert, weak, awake oriented x 3, moderate to severe scoliosis HEENT: EOMI, Sclera non icteric, moist mucosa NECK: Supple, no JVD, trachea midline LUNGS: Clear breath sounds bilaterally. No wheezes HEART: Regular rate and rhythm. Normal S1 and S2, without murmurs ABD: Abdomen soft, nontender. Bowel sounds present EXT: No clubbing cyanosis or edema NEURO: Alert and oriented to person, follows commands Vital Signs (last 8hr) Date Time Temp Pulse Resp B/P (MAP) Pulse Ox O2 Delivery O2 Flow Rate FiO2 07/14/24 19:32 98.4 80 17 106/71 92 Room Air 07/14/24 19:01 73 18 N/A Room Air 21 07/14/24 19:01 73 18 07/14/24 19:00 98.1 75 18 112/68 99 Room Air 07/14/24 18:32 98.4 71 17 106/72 95 Room Air 07/14/24 18:02 98.4 85 17 119/83 98 Room Air 07/14/24 17:32 98.4 70 17 124/81 98 Room Air 07/14/24 17:17 98.4 70 17 107/81 98 Room Air 07/14/24 17:02 98.4 74 17 119/84 98 Room Air 07/14/24 16:47 98.4 72 17 128/87 98 Room Air 07/14/24 16:22 97.9 72 18 143/89 94 Room Air 07/14/24 16:17 76 18 136/86 94 Room Air 07/14/24 16:12 74 16 139/84 95 Room Air 07/14/24 16:07 72 15 142/83 95 Room Air 07/14/24 16:02 75 16 144/87 97 Room Air 07/14/24 15:57 72 16 137/85 97 Room Air 07/14/24 15:52 76 18 129/84 100 Nonrebreathing Mask 10.0 100 07/14/24 15:47 73 18 138/88 100 Nonrebreathing Mask 10.0 100 07/14/24 15:42 75 17 141/86 100 Nonrebreathing Mask 10.0 100 07/14/24 15:37 74 16 133/89 100 Nonrebreathing Mask 10.0 100 07/14/24 15:32 72 17 136/87 100 Nonrebreathing Mask 10.0 100 07/14/24 15:27 76 15 142/85 100 Nonrebreathing Mask 10.0 100 07/14/24 15:22 97.5 74 15 128/88 100 Nonrebreathing Mask 10.0 100 07/14/24 14:40 ET 7.0 15.0 07/14/24 14:40 70 18 110/68 100 intubated 15.0 07/14/24 14:40 ET LABS: Hematology Labs: Test 07/14/24 08:12 Range/Units White Blood Count 2.4 L 4.8-10.8 K/uL Red Blood Count 3.17 L 4.00-5.50 MIL/uL Hemoglobin 10.3 #L 12.0-16.0 g/dL Hematocrit 33.8 #L 36-48 % Mean Corpuscular Volume 106.6 H 79-99 fL Mean Corpuscular Hemoglobin 32.5 27.0-33.0 pg Mean Corpuscular Hemoglobin Concent 30.5 L 32.0-36.0 g/dL Red Cell Distribution Width 19.6 H 11.0-15.5 % Platelet Count 218 130-400 K/uL Mean Platelet Volume 10.1 7.5-10.5 fL Immature Granulocyte % (Auto) 0.4 0-1 % Neutrophils (%) (Auto) 53.1 40.0-77.0 % Lymphocytes (%) (Auto) 34.7 21.0-51.0 % Monocytes (%) (Auto) 8.5 3.0-13.0 % Eosinophils (%) (Auto) 2.5 0.0-8.0 % Basophils (%) (Auto) 0.8 0.0-5.0 % Neutrophils # (Auto) 1.3 L 1.8-7.7 K/uL Lymphocytes # (Auto) 0.8 L 1.0-4.8 K/uL Monocytes # (Auto) 0.2 0.1-1.0 K/uL Eosinophils # (Auto) 0.06 0.00-0.70 K/uL Basophils # (Auto) 0.02 0.00-0.20 K/uL Absolute Immature Granulocyte (auto 0.01 0-1 K/uL Segmented Neutrophils % 64 40-70 % Lymphocytes % (Manual) 30 22-44 % Monocytes % (Manual) 2 2-9 % Eosinophils % (Manual) 2 1-6 % Basophils % (Manual) 1 0-2 % Nucleated Red Blood Cells 0.0 0.0-0.19 % Differential Comment MANUAL DIFFERENTIAL Reactive Lymphocytes 1 H 0-0 % White Cell Morphology Comment NORMAL Platelet Morphology Comment ADEQUATE Red Blood Cell Morphology See comments Chemistry Labs: Test 07/14/24 20:16 07/14/24 11:13 07/14/24 08:12 Range/Units Whole Blood Glucose 73 70-110 MG/DL Bedside Glucose Comment Notified Nurse Sodium Level 142 136-145 mmol/L Potassium Level 3.8 3.5-5.1 mmol/L Chloride Level 109 101-111 mmol/L Carbon Dioxide Level 26 21-32 mmol/L Blood Urea Nitrogen 2 L 7-18 mg/dL Creatinine 0.4 L 0.5-1.0 mg/dL Glomerular Filtration Rate Calc 108 >90 mL/min Random Glucose 76 70-105 mg/dL Total Calcium 7.3 L 8.5-10.1 mg/dL Magnesium Level 2.00 1.80-2.40 mg/dL Total Bilirubin 0.3 0.2-1.0 mg/dL Aspartate Amino Transf (AST/SGOT) 32 10-37 U/L Alanine Aminotransferase (ALT/SGPT) 16 12-78 U/L Alkaline Phosphatase 58 50-136 U/L B-Type Natriuretic Peptide 82 0-100 pg/mL Total Protein 4.7 L 6.0-8.3 g/dL Albumin 1.2 L 3.5-5.0 g/dL Vitamin B12 Level 2355 H 193-986 pg/mL DIAGNOSTICS / RADIOLOGY RESULTS: [ ] Signed PATIENT: EFRAIN BAKER I MR#: [id number] : 1955 SEX: F AGE: 69 LOCATION: 2AH ORDER 1641 STATUS: ADM IN REPORT#: [id number] SERVICE [id number] REASON: S/P ESOPHAGEAL STENT PLACEMENT ORDERING PHYSICIAN: CATRACHITA YEE MD PROCEDURE: CXR1VW - CHEST 1VW CHEST 1VW HISTORY: Post esophageal stent placement COMPARISON: 07/12/2024 FINDINGS: A frontal projection of the chest was obtained. There are bilateral pulmonary infiltrates suggestive of pulmonary vascular congestion with possible superimposed pneumonitis. The heart is borderline enlarged. All the lines and tubes are again seen in place. No evidence of aortic calcification is seen. IMPRESSION: 1. Bilateral pulmonary infiltrates are seen suggestive of pulmonary vascular congestion with possible superimposed pneumonitis. DICTATED BY: CARLOS HARPER MD DATE: 07/14/241703 ELECTRONICALLY SIGNED BY: CARLOS HARPER MD DATE: 07/14/241705 PLAN we recommend TPN for nutrition for now if she weill require further npo continue iv abx with meropenem. Pending sputum culture, order procalcitonin Consider MBSS once cleared from GI for esophageal obstruction Consider initiating lasix and spironolactone once able to tolerate oral diet Conservative management and monitoring of pleural effusion GI for management of esophageal stricture Disposition per primary NEURO: Minimize central acting medications as possible. Maintain fall precautions, adequate lighting during the day PULMONARY: Supplemental 02 as needed. Maintain aspiration precautions at all times CARDIOVASCULAR: Follow hemodynamics. Vital signs per facility protocol GI & NUTRITION: Continue with nutritional support. Continue stool softeners and laxatives as needed. KIDNEYS & ELECTROLYTES: Strict monitoring of intake, output and overall fluid balance. Avoid nephrotoxic medications to the extent possible. Medications to be dosed according to renal function. Monitor electrolytes and replace as needed ENDOCRINE: Maintain blood glucose between 100-180 at all times. Hypoglycemia protocol in place INFECTIOUS DISEASE: Trend temperature, WBC and procalcitonin level Follow cultures, deescalate antibiotics as soon as possible. Panculture if new onset fever ONCOLOGY/HEMATOLOGY/COAGULATION: Monitor for s/s of bleeding Monitor hemoglobin, coagulation studies as needed SKIN: Pressure ulcer prevention per facility protocol Specialty mattress ORTHO/REHAB: Continue PT/OT Prophylaxis: Continue GI and DVT prophylaxis Code Status: Full Resuscitation Disposition: sunny pending acceptance Other: Total patient care time exceeds 35 minutes excluding all procedures. L[facility] W[facility] Jul 14, 2024 20:51
[2024-07-15] VITALS (29 sets, daily range): BP systolic 106–136; BP diastolic 58–78; PULSE 75–95; RESP 14–18; TEMP 97.5–99.5; O2SAT 94–96
[2024-07-15 03:59] LABS: BASOPHILS # (AUTO) 0.02 K/uL (0.00-0.20); BASOPHILS % (AUTO) 0.6 % (0.0-5.0); EOSINOPHILS # (AUTO) 0.04 K/uL (0.00-0.70); EOSINOPHILS % (AUTO) 1.1 % (0.0-8.0); IMMATURE GRANULOCYTE ABSOLUTE 0.02 K/uL (0-1); LYMPHOCYTES # (AUTO) 0.9 K/uL (1.0-4.8); LYMPHOCYTES % (AUTO) 25.8 % (21.0-51.0); MEAN CORPUSCULAR HEMOGLOBIN 32.5 pg (27.0-33.0); MEAN CORPUSCULAR HGB CONC 31.2 g/dL (32.0-36.0); MEAN CORPUSCULAR VOLUME 104.4 fL (79-99); MONOCYTES # (AUTO) 0.3 K/uL (0.1-1.0); MONOCYTES % (AUTO) 9.2 % (3.0-13.0); NEUTROPHILS # (AUTO) 2.2 K/uL (1.8-7.7); NEUTROPHILS % (AUTO) 62.7 % (40.0-77.0); PLATELET COUNT (AUTO) 204 K/uL (130-400); RED BLOOD CELL COUNT(AUTO) 2.49 MIL/uL (4.00-5.50); RED CELL DISTRIBUTION WIDTH 19.2 % (11.0-15.5); WHITE BLOOD COUNT (AUTO) 3.5 K/uL (4.8-10.8)
[2024-07-15 04:14] LABS: BILIRUBIN,TOTAL 0.2 mg/dL (0.2-1.0); CREATININE 0.4 mg/dL (0.5-1.0); MAGNESIUM 1.8 mg/dL (1.80-2.40); TOTAL PROTEIN, SERUM 3.9 g/dL (6.0-8.3)
[2024-07-15] MEDS ORDERED: ALBUMIN (HUMAN) 25% 100 ML IV SCH (08:30)
[2024-07-15] MEDS ORDERED: PoTASSium chloRIDE 20MEQ/100ML 100 ML IV ONE ×3 (08:30→16:00)
[2024-07-15] MEDS ORDERED: PoTASSium chloRIDE 20MEQ/100ML 100 ML IV SCH (08:30)
--- NOTE | 2024-07-15 08:45 | PN ---
GASTROENTEROLOGY PROGRESS NOTE Date of Visit: Jul 15, 2024 Time of Visit: 08:44 Events / Notes: [ ] Review of Systems: CONSTITUTIONAL: No malaise or change in sensation of wellbeing. ENMT: No rhinorrhea, otorrhea, sinus pain, ear ache. CARDIOVASCULAR: No angina, palpitations, orthopnea or paroxysmal dyspnea. RESPIRATORY: No SOB. GASTROINTESTINAL: No abdominal pain, nausea, vomiting, diarrhea, hematemesis, melena or change in the patient's habitual bowel movements consistency/number. GENITOURINARY: No dysuria, hematuria or change in bladder continence. MUSCULOSKELETAL: No new muscle pain or decrease in muscular strength. No new joint swelling, redness or tenderness. SKIN: No new rash. Physical Exam: GEN: Awake, alert, oriented in person, time and place, and in no acute distress. HEENT: No sinus tenderness. Tympanic membranes were not examined. No rhinorrhea. Oral pharyngeal mucosa is pink, moist and within normal limits. Neck is supple with no cervical lymphadenopathy, thyromegaly or JVD. CHEST: Inspection, palpation and percussion of the chest were unremarkable. Lung auscultation revealed normal breath sounds bilaterally. CARDIAC: PMI is within normal limits. Heart sounds are regular. Normal S1, S2. No gallop or murmur. ABD: Soft, non-tender and not distended. No peritoneal signs on palpation. No organomegaly. Normal bowel sounds. EXT: No cyanosis or clubbing. No edema. SKIN: Intact. No rashes. JOINTS: No evidence of synovitis or acute arthritis. NEURO: Alert and oriented to name, place and person. Cranial nerve examination is unremarkable. No focal motor deficits. Normal speech. Gait is normal. Strength is normal. Vital Signs (last 8hr) Date Time Temp Pulse Resp B/P (MAP) Pulse Ox O2 Delivery O2 Flow Rate FiO2 07/15/24 08:07 97.9 77 16 121/69 94 Room Air 07/15/24 06:41 76 18 N/A Room Air 21 07/15/24 03:00 98.1 83 18 109/74 96 Room Air Laboratory: [ ] Laboratory: Test 07/15/24 08:10 07/15/24 06:37 07/15/24 03:38 07/14/24 11:13 Range/Units Potassium Level 4.5 3.5-5.1 mmol/L Whole Blood Glucose 128 #H 70-110 MG/DL White Blood Count 3.5 #L 4.8-10.8 K/uL Red Blood Count 2.49 #L 4.00-5.50 MIL/uL Hemoglobin 8.1 #L 12.0-16.0 g/dL Hematocrit 26.0 #L 36-48 % Mean Corpuscular Volume 104.4 H 79-99 fL Mean Corpuscular Hemoglobin 32.5 27.0-33.0 pg Mean Corpuscular Hemoglobin Concent 31.2 L 32.0-36.0 g/dL Red Cell Distribution Width 19.2 H 11.0-15.5 % Platelet Count 204 130-400 K/uL Mean Platelet Volume 10.2 7.5-10.5 fL Immature Granulocyte % (Auto) 0.6 0-1 % Neutrophils (%) (Auto) 62.7 40.0-77.0 % Lymphocytes (%) (Auto) 25.8 21.0-51.0 % Monocytes (%) (Auto) 9.2 3.0-13.0 % Eosinophils (%) (Auto) 1.1 0.0-8.0 % Basophils (%) (Auto) 0.6 0.0-5.0 % Neutrophils # (Auto) 2.2 1.8-7.7 K/uL Lymphocytes # (Auto) 0.9 L 1.0-4.8 K/uL Monocytes # (Auto) 0.3 0.1-1.0 K/uL Eosinophils # (Auto) 0.04 0.00-0.70 K/uL Basophils # (Auto) 0.02 0.00-0.20 K/uL Absolute Immature Granulocyte (auto 0.02 0-1 K/uL Nucleated Red Blood Cells 0.0 0.0-0.19 % Sodium Level 140 136-145 mmol/L Chloride Level 107 101-111 mmol/L Carbon Dioxide Level 26 21-32 mmol/L Blood Urea Nitrogen 4 L 7-18 mg/dL Creatinine 0.4 L 0.5-1.0 mg/dL Glomerular Filtration Rate Calc 108 >90 mL/min Random Glucose 138 #H 70-105 mg/dL Total Calcium 7.2 L 8.5-10.1 mg/dL Magnesium Level 1.80 1.80-2.40 mg/dL Total Bilirubin 0.2 # 0.2-1.0 mg/dL Aspartate Amino Transf (AST/SGOT) 22 10-37 U/L Alanine Aminotransferase (ALT/SGPT) 12 # 12-78 U/L Alkaline Phosphatase 51 50-136 U/L Total Protein 3.9 L 6.0-8.3 g/dL Albumin 1.0 L 3.5-5.0 g/dL Bedside Glucose Comment Notified Nurse Test 07/14/24 08:12 Range/Units Segmented Neutrophils % 64 40-70 % Lymphocytes % (Manual) 30 22-44 % Monocytes % (Manual) 2 2-9 % Eosinophils % (Manual) 2 1-6 % Basophils % (Manual) 1 0-2 % Differential Comment MANUAL DIFFERENTIAL Reactive Lymphocytes 1 H 0-0 % White Cell Morphology Comment NORMAL Platelet Morphology Comment ADEQUATE Red Blood Cell Morphology See comments B-Type Natriuretic Peptide 82 0-100 pg/mL Vitamin B12 Level 2355 H 193-986 pg/mL Current Medications Medications (Trade) Dose Ordered Sig/Jennifer Route PRN Reason Start Time Stop Time Status Last Admin Dose Admin Acetaminophen (TYLenol 650MG SUPPOSITORY) 650 mg Q6H PRN RC MILD PAIN (1-3) 07/09/24 19:30 08/08/24 19:29 Albumin Human 50 ml @ 0 mls/hr AD IV 07/13/24 07:30 07/13/24 07:17 DC Albumin Human 100 ml @ 0 mls/hr AD IV 07/15/24 08:30 07/16/24 08:29 Albuterol (DUOneb) 1 UDVIAL [id number] IH 07/10/24 00:00 08/09/24 00:00 07/14/24 22:54 1 UDVIAL Bisacodyl (DulcoLAX 5MG TAB) 5 mg AM PO 07/12/24 09:00 08/11/24 08:59 Ceftazidime (ForTAZ/TAZidime) 2 gm Q8H IVPB 07/13/24 15:00 07/13/24 15:06 DC Ceftriaxone Sodium (ROCEphine 1G INJ) 1 gm ONCE IVPB 07/09/24 19:19 07/09/24 23:59 DC 07/09/24 19:19 1 GM Dextrose (D50w) 50 ml AD PRN IV HYPOGLYCEMIA PROTOCOL 07/13/24 06:00 08/12/24 05:59 07/14/24 11:32 50 ML Dextrose (D50w) 50 ml AD PRN IV HYPOGLYCEMIA PROTOCOL 07/13/24 06:30 07/13/24 06:11 DC Dextrose/Lactated Ringer's 1,000 ml @ 50 mls/hr Q20H IV 07/11/24 20:00 08/10/24 19:59 07/14/24 11:34 50 MLS/HR Doxycycline Hyclate 250 ml @ 125 mls/hr Q12H IV 07/12/24 05:00 07/14/24 08:05 DC 07/14/24 05:12 125 MLS/HR Enoxaparin Sodium (Lovenox) 40 mg DAILY SQ 07/10/24 09:00 07/10/24 19:01 DC 07/10/24 10:15 40 MG Ergocalciferol (Drisdol) 1,250 unit AM PO 07/12/24 09:00 07/12/24 07:47 DC Famotidine (Pepcid 20mg Vial) 20 mg DAILY IV 07/10/24 09:00 07/12/24 07:38 DC 07/11/24 09:00 20 MG Fludrocortisone Acetate (Fludrocortisone Acetate) 0.1 mg DAILY PO 07/12/24 09:00 08/11/24 08:59 Furosemide (LASix 20MG TAB) 20 mg DAILY PO 07/12/24 09:00 07/12/24 04:49 DC Glucagon (Glucagon 1mg Kit) 1 mg AD PRN IM HYPOGLYCEMIA PROTOCOL 07/13/24 06:00 08/12/24 05:59 Glucagon (Glucagon 1mg Kit) 1 mg AD PRN IM HYPOGLYCEMIA PROTOCOL 07/13/24 06:30 07/13/24 06:11 DC Home Med (Home Medication) (Folic Acid 1 CAP) DAILY PO 07/12/24 09:00 08/11/24 08:59 Home Med (Home Medication) ([Azasan] 50 MG) AM PO 07/12/24 09:00 08/11/24 08:59 Hydralazine HCl (APRESOLine 20MG INJ) 10 mg Q6H PRN IV For:SBP above 160;DBP above 90 07/09/24 19:30 08/08/24 19:29 Lactated Ringer's 1,000 ml @ 75 mls/hr [id number] IV 07/09/24 19:30 07/11/24 19:49 DC 07/10/24 21:39 75 MLS/HR Levothyroxine Sodium (SYNTHroid 50MCG TAB) 50 mcg SYN PO 07/13/24 06:30 08/12/24 06:29 Loratadine (LORATAdine 10 mg) 10 mg DAILY PO 07/12/24 09:00 08/11/24 08:59 Magnesium Sulfate 50 ml @ 0 mls/hr PROTOCOL IV 07/13/24 07:30 07/13/24 07:14 DC Magnesium Sulfate 50 ml @ 0 mls/hr PROTOCOL PRN IV MAGNESIUM PROTOCOL 07/13/24 06:00 08/12/24 05:59 07/15/24 06:07 25 MLS/HR Meropenem (Merrem 1gm) 1 gm Q8H IVPB 07/13/24 16:00 07/14/24 16:54 DC 07/14/24 11:32 1 GM Meropenem (Merrem 1gm) 1 gm Q8H IVPB 07/14/24 20:00 07/24/24 19:59 07/15/24 04:16 1 GM Metronidazole/ Sodium Chloride 100 ml @ 100 mls/hr Q8H6 IVPB 07/13/24 22:00 07/13/24 15:06 DC Midodrine (PROAMatine 5 MG TABLET) 5 mg TID PO 07/12/24 09:00 08/11/24 08:59 Miscellaneous Medication (Esomeprazole Magnesium ) 1 cap DAILY PO 07/12/24 09:00 07/12/24 07:38 DC Miscellaneous Medication (Famotidine ) 1 tab DAILY PO 07/12/24 09:00 07/12/24 07:38 DC Miscellaneous Medication (Ondansetron HCl ) 1 tab TID PO 07/12/24 09:00 07/12/24 07:47 DC Miscellaneous Medication (Sertraline HCl ) 1 tab DAILY PO 07/12/24 09:00 07/12/24 07:41 DC Montelukast Sodium (SinguLAIR) 10 mg DAILY PO 07/12/24 09:00 08/11/24 08:59 Morphine Sulfate (morPHINE 2MG SYG) 2 mg Q4H PRN IVP SEVERE PAIN (7-10) 07/10/24 19:30 07/16/24 19:29 07/13/24 21:13 2 MG Morphine Sulfate (morPHINE 4MG SYG) 2 mg Q4H PRN IVP SEVERE PAIN (7-10) 07/09/24 19:30 07/10/24 19:01 DC Ondansetron HCl (zoFRAN 4MG INJ) 4 mg Q6H PRN IV NAUSEA/VOMITING 07/09/24 19:30 08/08/24 19:29 Pantoprazole Sodium (PROTonix 40MG INJ) 40 mg BID IVP 07/14/24 21:00 08/13/24 20:59 07/14/24 20:00 40 MG Pantoprazole Sodium (PROTonix 40MG INJ) 40 mg DAILY IVP 07/14/24 09:00 07/15/24 07:56 DC 07/14/24 11:38 40 MG Pantoprazole Sodium (PROTonix 40MG TAB) 40 mg DAILY PO 07/12/24 09:00 07/14/24 08:39 DC Piperacillin Sod/ Tazobactam Sod (Zosyn 3.375gm+NS 50ml) 3.375 gm Q12H IV 07/12/24 05:00 07/12/24 04:51 DC Piperacillin Sod/ Tazobactam Sod (Zosyn 3.375gm+NS 50ml) 3.375 gm ZOSY8 IV 07/09/24 21:00 07/13/24 14:39 DC 07/13/24 12:51 3.375 GM Potassium Chloride 100 ml @ 50 mls/hr AD PRN IV POTASSIUM PROTOCOL 07/13/24 06:30 08/12/24 06:29 07/15/24 04:59 50 MLS/HR Potassium Chloride 100 ml @ 50 mls/hr PROTOCOL IV 07/15/24 08:30 07/15/24 08:27 DC Potassium Chloride 100 ml @ 50 mls/hr PROTOCOL IV 07/13/24 07:30 07/13/24 07:14 DC Potassium Chloride 100 ml @ 50 mls/hr PROTOCOL IV 07/13/24 11:00 07/13/24 07:14 DC Potassium Chloride 100 ml @ 50 mls/hr PROTOCOL IV 07/13/24 16:00 07/13/24 07:14 DC Quetiapine Fumarate (SEROquel 25 mg TAB) 50 mg HS PO 07/12/24 21:00 08/11/24 20:59 Sertraline HCl (ZOloft 50 mg tab) 150 mg DAILY PO 07/11/24 09:00 08/10/24 08:59 Simvastatin (zoCOR) 20 mg HS PO 07/12/24 21:00 08/11/24 20:59 Sodium Chloride 1,000 ml @ 500 mls/hr Q2H IV 07/09/24 17:34 07/10/24 01:15 DC 07/09/24 19:34 500 MLS/HR Spironolactone (Aldactone 25mg) 25 mg DAILY PO 07/12/24 09:00 07/12/24 04:49 DC Sucralfate (Carafate) 1 gm TID PO 07/12/24 09:00 08/11/24 08:59 Vitamin B Complex (Vitamin B-12) 1,000 mcg DAILY PO 07/12/24 09:00 08/11/24 08:59 Diagnostics / Radiology: [COPY/PASTE HERE IF NO REPORTS PLEASE DELETE SECTION] Assessment: Esophageal stricture Gastric bypass Plan: G tube today Continue GI prophylaxis Avoid NSAIDs Antireflux measures Monitor H&H and transfuse as needed Call with questions, concerns or change in clinical status Patient to follow-up at clinic post discharge Thank you for this consult MALA CHARLES Jul 15, 2024 08:45
[2024-07-15] MEDS: SUGAMMADEX SODIUM 200 MG/2 ML VIAL IV ONE (09:00)
--- NOTE | 2024-07-15 09:24 | HMCIMG ---
CHEST 1VW HISTORY: Post esophageal stent placement COMPARISON: None FINDINGS: Crosstable lateral views of the chest were obtained. Bilateral pulmonary infiltrates are seen. This is a limited study. Evaluation for esophageal stent is limited. The heart is borderline enlarged. No evidence of aortic calcification is seen. IMPRESSION: 1. Limited study. Bilateral pulmonary infiltrates.
[2024-07-15 09:48] LABS: HEMATOCRIT 26.7 % (36-48); MEAN CORPUSCULAR HEMOGLOBIN 33.1 pg (27.0-33.0); MEAN CORPUSCULAR HGB CONC 31.1 g/dL (32.0-36.0); MEAN CORPUSCULAR VOLUME 106.4 fL (79-99); RED BLOOD CELL COUNT(AUTO) 2.51 MIL/uL (4.00-5.50); RED CELL DISTRIBUTION WIDTH 19.3 % (11.0-15.5); WHITE BLOOD COUNT (AUTO) 3.8 K/uL (4.8-10.8)
--- NOTE | 2024-07-15 09:50 | PN ---
[facility] PROGRESS NOTE Date of Service: Jul 15, 2024 Time of Service: 09:[address] Johnson 69-year-old female admitted with multifocal pneumonia and pleural effusion SUBJECTIVE: [ Hospital day 1. For 69-year-old female admitted with multifocal pneumonia and pericardial effusion. On further history with the patient as well as her spouse who is my patient at the [facility]. Patient has had problems with chronic esophageal and sounds like gastric strictures for the past six months. Patient has been seeing Dr. Ki Medina gastrointestinal specialist and Dr. Philip at the same group and has had multiple dilations including balloon dilation on about four or five occasions. Patient's weight has gone down from about just under 200 lb to less than 100 lb but she has recently gained about 27 lb back per her spouse. Patient has been in and out of the [facility] for rehab and [facility]. She had a complication and in esophageal tear that was a complication from too much pressure with a balloon dilator. I asked her if she bled significantly as she is on blood thinners but he has had no. Otherwise the patient states that she has had about a week's worth of a productive cough with brown phlegm no fevers or chil ls. Patient had a fall approximately six months ago in which a lot of her problems started. She has essentially been nonambulatory since this fall. Although when she was at the alf they did set her up and do gentle rznos-yj-ygiyqj exercises and even short ambulation with the assistance patient has been bed- bound essentially. She had significant swelling to most of her body and was told this was from malnutrition that has been slowly improving over the last few weeks now that she is able to take by mouth. She has complicating factors in the sense that she fell and destroyed her implants and upper anchor for her dentures and so has had to have pureed food only 07/11/2024: No significant interval events reported by nursing staff. Patient reports no pain or shortness for breath. Her morning labs were reviewed 07/12/24 patient was seen by nurse practitioner and physician during rounding in room 230. Patient was comfortably lying in bed. Urine culture final negative. Blood culture 48 hours negative so far. Patient was evaluated by embroidery patternmaker and was cleared for EGD. Patient was evaluated by Dr. Moon and EGD was perfor med, which showed benign appearing esophageal stenosis. And nonbleeding perforation was found in the esophagus. Afterwards we found out that patient belongs to Dr. Monroy so the care was change to other group of GI. Patient is pending possible esophagram was evaluated by other GI group. CT chest/abdomen showed aspiration pneumonia small pericardial effusion, small abdominal ascites and anasarca. 2D echo EF 60 65% stage I diastolic dysfunction large left pleural effusion. As per GI patient is not a candidate for PEG tube due to history of a bypass. Patient has bilateral lower extremity swelling we will order 20 mg of Lasix IV one dose only. We will do CBC, CMP and magnesium stat, as well we will repeat morning labs. Patient came from [facility] per family member at the bedside would like to return done once patient medically cleared. We will continue to monitor patient in the meantime. A.m. labs 07/13 patient was seen by nurse practitioner and physician during rounding in room 230. No family member at the bedside at this moment. Patient was evaluated by the silk spreader and per chest x-ray no pneumothorax is visible. No chest needed at this moment. As per GI patient is pending esophagram with possible stent placement on Friday07/14/2024. Patient will receive 60 mEq of potassium in total for potassium of 2.6. Patient will also receive 2 g of magnesium for magnesium 1.6 today in a.m.. Today albumin is 1.0 patient will receive albumin as well. PT working with the patient. Final urine culture negative. Blood culture-48 hours. We will continue to monitor patient in the meantime. A.m. labs. 07/14 patient was seen by nurse practitioner and physician during rounding. Family member at the bedside was informed regards to further plan. Patient is pending esophagram with stent placement today. Once cleared the patient will be able to eat patient to be discharged to [facility]. Magnesium today 1.7 patient will receive 2 g of magnesium. We are pending morning lab results. RN instructed to cover potassium if low per protocol. We will continue to monitor patient in the meantime. A.m. labs. 07/15 patient was seen by nurse practitioner physician during rounding in room 210. Patient is s/p EGD with stent placement yesterday 07/14/[address] Monroy. Today patient is pending PEG tube placement. Nurse practitioner was able to talk to Toshia Reyes NP with GI group at 8:47 a.m. and after PEG tube placement . Patient's potassium today is 4.5. Albumin 1.0. Patient will receive 2 mg of albumin. Magnesium 1.6 patient received 2 g of magnesium. We will also repeat CBC due to drop of hemoglobin. Blood culture negative x5 days. Urine growing Pseudomonas aeruginosa PICC line placed for IV antibiotics. Patient will need Merrem for one week after discharge. We will continue to monitor patient in the meantime. A.m. labs.] REVIEW OF SYSTEMS CONSTITUTIONAL: Denies fevers, chills, or night sweats. wt loss as described above of about 80lbs in 6 months NEUROLOGICAL: no n/t, no hx of strokes ENT: No hearing loss, otalgia, otorrhea, rhinitis, rhinorrhea, or sore throat.+very raspy voices CARDIOVASCULAR: Denies any exertional angina, dyspnea on exertion, orthopnea, paroxysmal nocturnal dyspnea, palpitations, life-threatening arrhythmias, claudication. GASTROINTESTINAL: See history of present illness, + esophageal stenosis and dysphagia for six months. Positive nausea and intermittent vomiting, regular bowel movements no diarrhea no bloody stools GENITOURINARY: Denies increased frequency, no urgency or pain with urination. Patient states he is continent to both bowel and bladder. ENDOCRINOLOGIC: Denies polyuria, polydipsia, polyphagia or heat/cold intolerances. HEMATOLOGIC: Patient did have a clot in her upper extremity a few months back. That resolved on its own per the patient's spouse, Cedrick. ONCOLOGIC: Denies personal history of malignancy. DERMATOLOGIC: Easy bruisability with multiple ecchymotic areas to the neck. PSYCHIATRIC: Denies any suicidal or homicidal ideation. Denies hallucinations. Positive depressive symptomatology because of health decline with the last six months. PHYSICAL EXAM GENERAL APPEARANCE: The patient is awake, alert, and oriented, in no acute cardiopulmonary distress. Very cachectic appearing 69-year-old female appearing much older than stated age NEUROLOGICAL: Cranial nerves II-XII grossly intact. Motor is 4+/5 in bilateral upper and lower extremities proximal to distal. No sensory deficits. HEENT: Face is symmetric. Pupils are equal and reactive. Extraocular movements are intact. TMs are pearly riley and external auditory canals are without inflammation. NECK: Supple. No JVD. No thyromegaly. No submental, submandibular, pre- /postauricular, occipital or supraclavicular lymphadenopathy. CHEST: Normal chest expansion. LUNGS: Bilateral rhonchi noted to the mid and lower lung adams, no wheezes or rales noted. CARDIOVASCULAR: Regular. S1 and S2 normal. No appreciable rubs, murmurs or gallops. ABDOMEN: Soft, nontender, and nondistended. There is no rebound, voluntary guarding, or rigidity. : Deferred. No Manuel. EXTREMITIES: Non-edematous and not cyanotic. No clubbing. Good capillary refill. Dorsalis pedis pulse present to the right foot left foot dorsalis pedis very slightly palpable but cap refill brisk posterior tibial pulses felt x2 SKIN: No skin breakdown. Vital Signs (last 8hr) Date Time Temp Pulse Resp B/P (MAP) Pulse Ox O2 Delivery O2 Flow Rate FiO2 07/15/24 08:07 97.9 77 16 121/69 94 Room Air 07/15/24 06:41 76 18 N/A Room Air 21 07/15/24 03:00 98.1 83 18 109/74 96 Room Air LABS: Laboratory: Test 07/15/24 08:10 07/15/24 06:37 07/15/24 03:38 07/14/24 11:13 Range/Units Potassium Level 4.5 3.5-5.1 mmol/L Whole Blood Glucose 128 #H 70-110 MG/DL White Blood Count 3.5 #L 4.8-10.8 K/uL Red Blood Count 2.49 #L 4.00-5.50 MIL/uL Hemoglobin 8.1 #L 12.0-16.0 g/dL Hematocrit 26.0 #L 36-48 % Mean Corpuscular Volume 104.4 H 79-99 fL Mean Corpuscular Hemoglobin 32.5 27.0-33.0 pg Mean Corpuscular Hemoglobin Concent 31.2 L 32.0-36.0 g/dL Red Cell Distribution Width 19.2 H 11.0-15.5 % Platelet Count 204 130-400 K/uL Mean Platelet Volume 10.2 7.5-10.5 fL Immature Granulocyte % (Auto) 0.6 0-1 % Neutrophils (%) (Auto) 62.7 40.0-77.0 % Lymphocytes (%) (Auto) 25.8 21.0-51.0 % Monocytes (%) (Auto) 9.2 3.0-13.0 % Eosinophils (%) (Auto) 1.1 0.0-8.0 % Basophils (%) (Auto) 0.6 0.0-5.0 % Neutrophils # (Auto) 2.2 1.8-7.7 K/uL Lymphocytes # (Auto) 0.9 L 1.0-4.8 K/uL Monocytes # (Auto) 0.3 0.1-1.0 K/uL Eosinophils # (Auto) 0.04 0.00-0.70 K/uL Basophils # (Auto) 0.02 0.00-0.20 K/uL Absolute Immature Granulocyte (auto 0.02 0-1 K/uL Nucleated Red Blood Cells 0.0 0.0-0.19 % Sodium Level 140 136-145 mmol/L Chloride Level 107 101-111 mmol/L Carbon Dioxide Level 26 21-32 mmol/L Blood Urea Nitrogen 4 L 7-18 mg/dL Creatinine 0.4 L 0.5-1.0 mg/dL Glomerular Filtration Rate Calc 108 >90 mL/min Random Glucose 138 #H 70-105 mg/dL Total Calcium 7.2 L 8.5-10.1 mg/dL Magnesium Level 1.80 1.80-2.40 mg/dL Total Bilirubin 0.2 # 0.2-1.0 mg/dL Aspartate Amino Transf (AST/SGOT) 22 10-37 U/L Alanine Aminotransferase (ALT/SGPT) 12 # 12-78 U/L Alkaline Phosphatase 51 50-136 U/L Total Protein 3.9 L 6.0-8.3 g/dL Albumin 1.0 L 3.5-5.0 g/dL Bedside Glucose Comment Notified Nurse Test 07/14/24 08:12 Range/Units Segmented Neutrophils % 64 40-70 % Lymphocytes % (Manual) 30 22-44 % Monocytes % (Manual) 2 2-9 % Eosinophils % (Manual) 2 1-6 % Basophils % (Manual) 1 0-2 % Differential Comment MANUAL DIFFERENTIAL Reactive Lymphocytes 1 H 0-0 % White Cell Morphology Comment NORMAL Platelet Morphology Comment ADEQUATE Red Blood Cell Morphology See comments B-Type Natriuretic Peptide 82 0-100 pg/mL Vitamin B12 Level 2355 H 193-986 pg/mL Current Medications Medications (Trade) Dose Ordered Sig/Jennifer Route PRN Reason Start Time Stop Time Status Last Admin Dose Admin Acetaminophen (TYLenol 650MG SUPPOSITORY) 650 mg Q6H PRN RC MILD PAIN (1-3) 07/09/24 19:30 08/08/24 19:29 Albumin Human 50 ml @ 0 mls/hr AD IV 07/13/24 07:30 07/13/24 07:17 DC Albumin Human 100 ml @ 0 mls/hr AD IV 07/15/24 08:30 07/16/24 08:29 Albuterol (DUOneb) 1 UDVIAL D1HRSPN IH 07/10/24 00:00 08/09/24 00:00 07/14/24 22:54 1 UDVIAL Bisacodyl (DulcoLAX 5MG TAB) 5 mg AM PO 07/12/24 09:00 08/11/24 08:59 Ceftazidime (ForTAZ/TAZidime) 2 gm Q8H IVPB 07/13/24 15:00 07/13/24 15:06 DC Ceftriaxone Sodium (ROCEphine 1G INJ) 1 gm ONCE IVPB 07/09/24 19:19 07/09/24 23:59 DC 07/09/24 19:19 1 GM Dextrose (D50w) 50 ml AD PRN IV HYPOGLYCEMIA PROTOCOL 07/13/24 06:00 08/12/24 05:59 07/14/24 11:32 50 ML Dextrose (D50w) 50 ml AD PRN IV HYPOGLYCEMIA PROTOCOL 07/13/24 06:30 07/13/24 06:11 DC Dextrose/Lactated Ringer's 1,000 ml @ 50 mls/hr Q20H IV 07/11/24 20:00 08/10/24 19:59 07/14/24 11:34 50 MLS/HR Doxycycline Hyclate 250 ml @ 125 mls/hr Q12H IV 07/12/24 05:00 07/14/24 08:05 DC 07/14/24 05:12 125 MLS/HR Enoxaparin Sodium (Lovenox) 40 mg DAILY SQ 07/10/24 09:00 07/10/24 19:01 DC 07/10/24 10:15 40 MG Ergocalciferol (Drisdol) 1,250 unit AM PO 07/12/24 09:00 07/12/24 07:47 DC Famotidine (Pepcid 20mg Vial) 20 mg DAILY IV 07/10/24 09:00 07/12/24 07:38 DC 07/11/24 09:00 20 MG Fludrocortisone Acetate (Fludrocortisone Acetate) 0.1 mg DAILY PO 07/12/24 09:00 08/11/24 08:59 Furosemide (LASix 20MG TAB) 20 mg DAILY PO 07/12/24 09:00 07/12/24 04:49 DC Glucagon (Glucagon 1mg Kit) 1 mg AD PRN IM HYPOGLYCEMIA PROTOCOL 07/13/24 06:00 08/12/24 05:59 Glucagon (Glucagon 1mg Kit) 1 mg AD PRN IM HYPOGLYCEMIA PROTOCOL 07/13/24 06:30 07/13/24 06:11 DC Home Med (Home Medication) (Folic Acid 1 CAP) DAILY PO 07/12/24 09:00 08/11/24 08:59 Home Med (Home Medication) ([Azasan] 50 MG) AM PO 07/12/24 09:00 08/11/24 08:59 Hydralazine HCl (APRESOLine 20MG INJ) 10 mg Q6H PRN IV For:SBP above 160;DBP above 90 07/09/24 19:30 08/08/24 19:29 Lactated Ringer's 1,000 ml @ 75 mls/hr [id number] IV 07/09/24 19:30 07/11/24 19:49 DC 07/10/24 21:39 75 MLS/HR Levothyroxine Sodium (SYNTHroid 50MCG TAB) 50 mcg SYN PO 07/13/24 06:30 08/12/24 06:29 Loratadine (LORATAdine 10 mg) 10 mg DAILY PO 07/12/24 09:00 08/11/24 08:59 Magnesium Sulfate 50 ml @ 0 mls/hr PROTOCOL IV 07/13/24 07:30 07/13/24 07:14 DC Magnesium Sulfate 50 ml @ 0 mls/hr PROTOCOL PRN IV MAGNESIUM PROTOCOL 07/13/24 06:00 08/12/24 05:59 07/15/24 06:07 25 MLS/HR Meropenem (Merrem 1gm) 1 gm Q8H IVPB 07/13/24 16:00 07/14/24 16:54 DC 07/14/24 11:32 1 GM Meropenem (Merrem 1gm) 1 gm Q8H IVPB 07/14/24 20:00 07/24/24 19:59 07/15/24 04:16 1 GM Metronidazole/ Sodium Chloride 100 ml @ 100 mls/hr Q8H6 IVPB 07/13/24 22:00 07/13/24 15:06 DC Midodrine (PROAMatine 5 MG TABLET) 5 mg TID PO 07/12/24 09:00 08/11/24 08:59 Miscellaneous Medication (Esomeprazole Magnesium ) 1 cap DAILY PO 07/12/24 09:00 07/12/24 07:38 DC Miscellaneous Medication (Famotidine ) 1 tab DAILY PO 07/12/24 09:00 07/12/24 07:38 DC Miscellaneous Medication (Ondansetron HCl ) 1 tab TID PO 07/12/24 09:00 07/12/24 07:47 DC Miscellaneous Medication (Sertraline HCl ) 1 tab DAILY PO 07/12/24 09:00 07/12/24 07:41 DC Montelukast Sodium (SinguLAIR) 10 mg DAILY PO 07/12/24 09:00 08/11/24 08:59 Morphine Sulfate (morPHINE 2MG SYG) 2 mg Q4H PRN IVP SEVERE PAIN (7-10) 07/10/24 19:30 07/16/24 19:29 07/13/24 21:13 2 MG Morphine Sulfate (morPHINE 4MG SYG) 2 mg Q4H PRN IVP SEVERE PAIN (7-10) 07/09/24 19:30 07/10/24 19:01 DC Ondansetron HCl (zoFRAN 4MG INJ) 4 mg Q6H PRN IV NAUSEA/VOMITING 07/09/24 19:30 08/08/24 19:29 Pantoprazole Sodium (PROTonix 40MG INJ) 40 mg BID IVP 07/14/24 21:00 08/13/24 20:59 07/14/24 20:00 40 MG Pantoprazole Sodium (PROTonix 40MG INJ) 40 mg DAILY IVP 07/14/24 09:00 07/15/24 07:56 DC 07/14/24 11:38 40 MG Pantoprazole Sodium (PROTonix 40MG TAB) 40 mg DAILY PO 07/12/24 09:00 07/14/24 08:39 DC Piperacillin Sod/ Tazobactam Sod (Zosyn 3.375gm+NS 50ml) 3.375 gm Q12H IV 07/12/24 05:00 07/12/24 04:51 DC Piperacillin Sod/ Tazobactam Sod (Zosyn 3.375gm+NS 50ml) 3.375 gm ZOSY8 IV 07/09/24 21:00 07/13/24 14:39 DC 07/13/24 12:51 3.375 GM Potassium Chloride 100 ml @ 50 mls/hr AD PRN IV POTASSIUM PROTOCOL 07/13/24 06:30 08/12/24 06:29 07/15/24 04:59 50 MLS/HR Potassium Chloride 100 ml @ 50 mls/hr PROTOCOL IV 07/15/24 08:30 07/15/24 08:27 DC Potassium Chloride 100 ml @ 50 mls/hr PROTOCOL IV 07/13/24 07:30 07/13/24 07:14 DC Potassium Chloride 100 ml @ 50 mls/hr PROTOCOL IV 07/13/24 11:00 07/13/24 07:14 DC Potassium Chloride 100 ml @ 50 mls/hr PROTOCOL IV 07/13/24 16:00 07/13/24 07:14 DC Quetiapine Fumarate (SEROquel 25 mg TAB) 50 mg HS PO 07/12/24 21:00 08/11/24 20:59 Sertraline HCl (ZOloft 50 mg tab) 150 mg DAILY PO 07/11/24 09:00 08/10/24 08:59 Simvastatin (zoCOR) 20 mg HS PO 07/12/24 21:00 08/11/24 20:59 Sodium Chloride 1,000 ml @ 500 mls/hr Q2H IV 07/09/24 17:34 07/10/24 01:15 DC 07/09/24 19:34 500 MLS/HR Spironolactone (Aldactone 25mg) 25 mg DAILY PO 07/12/24 09:00 07/12/24 04:49 DC Sucralfate (Carafate) 1 gm TID PO 07/12/24 09:00 08/11/24 08:59 Vitamin B Complex (Vitamin B-12) 1,000 mcg DAILY PO 07/12/24 09:00 08/11/24 08:59 DIAGNOSTICS / RADIOLOGY: [ ] ASSESSMENT: [1. Left upper and lower lobe aspiration pneumonia POA 2 small pericardial effusion per 2D echo POA 3. Uncontrolled Hypertension POA 4. Hyperlipidemia POA 5. History of anasarca POA 6. Severe protein calorie malnutrition POA 7. Bed-bound x6 months POA 8. Depression likely adjustment reaction to severe health decline over the last six months POA 9. Leukopenia POA 10. History of orthostatic hypotension POA 11. Esophageal stricture history 12. S/p EGD with stent placement 07/14/2024 s/p PEG tube placement 07/15/24 13. hypothyroidism POA 14. Macrocytic anemia, POA 15. B12 deficiency on oral replacement POA Perforation of esophagus per CT abdomen/pelvis POA Esophageal dysfunction per CT abdomen/chest POA Acute on chronic diastolic heart failure 2D echo EF 60 65% stage I diastolic dysfunction Acute complicated cystitis POA Pseudomonas aeruginosa urine culture ] PLAN: [PEG tube placement 07/15/2024 pending Zosyn and doxycycline discontinue Merrem started for Pseudomonas aeruginosa in urine Would also do breathing treatments as needed around the clock while awake. Along with gentle pulmonary physiotherapy. Cardiology give a clearance for EGD EGD showed perforation of esophagus, dyspnea, esophageal dysfunction s/p esophagram withstent placement 07/14/[address] scan was discussed with Cardiology and it turns out that the patient actually has a larger pleural effusion which may have been what the radiologist was mistaken for pericardial effusion the pericardial effusion is clinically insignificant. Home medication resumed We will go ahead and increase her sertraline from 100-150 mg daily. Urine culture final positive for Pseudomonas aeruginosa Blood culture negative for five days RN instructed to cover potassium per protocol if lab results of potassium today in a.m. law Patient will receive 2 g of magnesium. ] ATTESTATION BY PHYSICIAN I have seen and examined the patient. I reviewed the documentation, medical decision making, and treatment plan as noted by the mid-level provider above. I agree with the findings and plan of care. LELE JOHNSON MD, KATAR[employer]YNA [employer] ROLE PLAYER Jul 15, 2024 09:50
[2024-07-15] MEDS ORDERED: PoTASSium chloRIDE 20MEQ ER 20 MEQ ERTAB PO PRN (14:30)
[2024-07-15] MEDS ORDERED: GLUCAGON 1MG KIT 1 MG ML IM PRN (14:30)
[2024-07-15] MEDS ORDERED: DEXTROSE 50%-WATER 50 ML DISP.SYRIN IV PRN (14:30)
[2024-07-15] MEDS ORDERED: MAGNESIUM 2GM PREMIX 50ML 50 ML IV PRN (14:30)
[2024-07-15] MEDS ORDERED: PoTASSium chl 10% ELIXIR 20MEQ 20 MEQ/15 ML UDCUP PO PRN (14:30)
--- NOTE | 2024-07-15 14:39 | NUR ---
Nutrition f/u Reviewed labs, notes, and medications. Pt on TPN of 5/15 @ 80 ml/hr, BG 138(H), Ca 7.2(L) per chart review. Pt pending PEG tube placement, wt via bed scale per nursing. Pt upset during visit, Pt missing top dentures, RD informed she is getting nutrition. Pt reported she is aware of NPO status, expressed frustration towards no advancement in PEG tube. PEG tube recs to meet Pt's needs. Clinimix 5/15 @ 80 ml/hr x 24 hrs provides: 1363 kcals, 96 gm pro, meets 80% Pt's calories and 100% of Pt's protein needs. If Pt continues to be on TPN, include 10 ml adult MVI and 3 ml trace elements, provide 3x weekly lipid emulsion to prevent essential fatty acid deficiency. GIR of 1.9 mg/kg/min. Start TF rate @ 15 ml/hr for the first 4 hours, increase 5 ml Q2H until you reach goal rate. If residual >500 ml stop TF for 2 hours and then restart if residual continues to be >500 ml stop TF and notify MD. Due to Pt's hx of gastric bypass glucerna is appropriate since it has less CHO, monitor TF tolerance and depending on Pt's TF tolerance wean off Clinimix 5/15. D/c clinimix once TF @ goal rate. Recommendations: -Provide Glucerna 1.5 @ 50 ml/hr x 22 hrs + 200 Q4H Provides: 1650 kcals, 91 gm pro, 2034 ml per day -If bolus provide: 4 1/2 cans of Glucerna 1.5 (times: 0900,1400, 1900, 0000) 30 ml before and after each feed if medically feasible -Monitor BM -If no BM >3 days consider stool softener -Monitor electrolytes -Replenish electrolytes per protocol -Monitor wts -Reweigh as able -Monitor b-vitamins, vit. D, iron and calcium results due to Pt's hx of gastric bypass -Provide MVI QD -Recommend Pt to follow up with PCP -Monitor TF tolerance + need for TF adjustment -Monitor goals of care RD to follow + available for consult per protocol Addendum: 07/15/24 at [address] Amended: Links added.
[2024-07-15] MEDS ORDERED: rocuRONium bROMide 10MG/1ML 5ML VL ONE (15:11)
[2024-07-15] MEDS ORDERED: proPOFol 10 MG/ML 20ML VIAL IV ONE (15:11)
[2024-07-15] MEDS ORDERED: ketaMINE 50MG/ML SYRINGE 50 MG/ML DISP.SYRIN ONE (15:11)
[2024-07-15] MEDS ORDERED: LIDOCAINE PF 100MG/5ML (2%) SYRINGE 5ML ONE (15:11)
[2024-07-15] MEDS ORDERED: ondanSETRON 4MG INJ ONE (15:18)
[2024-07-15] MEDS ORDERED: dexaMETHasone SOD PHOSPHATE 4 MG/ML 1ML VIAL ONE (15:18)
[2024-07-15] MEDS ORDERED: LIDOCAINE HCL 4% LTA SOL 4 ML VIAL ONE (15:18)
[2024-07-15] MEDS: BUPIvacaine/PF 0.25% 30ML VIAL IJ ONE (16:07)
--- NOTE | 2024-07-15 16:15 | NUR ---
[facility] Consult: Unable to assess, patient not in room at this time, at procedure for G-tube placement. Addendum: 07/16/24 at 0848 by ANA BENSON RN RN/ARNOLDO Amended: Links added.
[2024-07-15] MEDS: INSULIN humuLIN R 100 UNIT/ML 3ML SQ SCH (16:30)
[2024-07-15] MEDS ORDERED: FENTanyl CITRate PF 50 MCG/1 ML 2ML VIAL ONE (16:50)
--- NOTE | 2024-07-15 17:56 | OP ---
Operative Note: DATE OF PROCEDURE: 07/15/24 SURGEON: JONATHAN SHELTON MD CHARTER PILOT: Gurinder Shelton MD p.a. C ANESTHESIA: General and local ANESTHESIOLOGIST/BELLY ROLLER: [facility] [place] [place] team PREOPERATIVE DIAGNOSIS: Severe protein calorie malnutrition and gastric bypass anatomy POSTOPERATIVE DIAGNOSIS: As above. SYNOPSIS: Sixteen Brazilian transabdominal gastrostomy tube placed without incident PROCEDURE: Robotic assisted laparoscopic placement of a gastric feeding tube i nto the gastric remnant stomach evidence of distal migration patient's esophageal/anastomotic stent ESTIMATED BLOOD LOSS: Minimal, less than 10 cc INDICATIONS: As above DESCRIPTION OF PROCEDURE: After standard precautions and preparations were undertaken a Veress needle and optical trocar were used to enter the abdominal cavity. All other instruments were placed under direct vision. The robotic system was docked in the standard fashion. We utilized the bipolar dissecting device to take down adhesions. We traced out the anatomy. It appears the patient has a retrocolic gastric bypass. There was evidence of stent migration into the distal Omid limb and this was noted and a message passed to the primary team such that a GI could retrieve the stent endoscopically. We made a small gastrotomy in the anterior gastric wall and due to the inability to hold the stomach up to the posterior abdominal wall from scarring from the bypass we utilized a 16 Brazilian Manuel catheter to have enough distance to bridge the gap between the abdominal wall and the anterior gastric wall. A pursestring suture was placed to snug with the gastric tissue up against the catheter with no sign of leakage. The balloon was tested prior to placement and then 10 cc were left in the intra-gastric balloon of the Manuel catheter. The catheter was flushed with free water with no signs of obstruction. At the end of the case all instrument counts were verified as correct including needles and sponges. We sutured nylon sutures to tether the feeding tube in place with an appropriate amount of external tube to prevent the intragastric balloon portion of the tube from causing a gastric outlet obstruction. The tube was marked with permanent marker. JONATHAN SHELTON MD Jul 15, 2024 17:56
--- NOTE | 2024-07-15 19:46 | PN ---
[facility] PROGRESS NOTE Date Patient Seen: Jul 15, 2024 Time of Visit: 12:30 Supervising Physician: Adrianna Weston MD Primary Care Physician: [CATALYST] Outpatient Specialists: [ ] Inpatient Consults: [[facility]IS] PROBLEM LIST: Esophageal tear s/p EGD and stent placement. 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 She is in no apparent distress. She is currently recieving TPN via PICC line. She is s/p EGD with esophageal stent placement by Dr Monroy yesterday . She is pending Gtube placement today per DR Armendariz. She denies any pain or shortness of breath. She reports no nausea or vomiting. She is more alert than previous days and reports she is feeling well. not at bedside today. Labs unremarkable. Electrolytes to be replaced per protocols. REVIEW OF SYSTEMS: 12 point ROS reviewed with patient. Pertinent positives mentioned above. Otherwise negative. PHYSICAL EXAM: GENERAL: alert, weak, awake oriented x 3, moderate to severe scoliosis HEENT: EOMI, Sclera non icteric, moist mucosa NECK: Supple, no JVD, trachea midline LUNGS: Clear breath sounds bilaterally. No wheezes HEART: Regular rate and rhythm. Normal S1 and S2, without murmurs ABD: Abdomen soft, nontender. Bowel sounds present EXT: No clubbing cyanosis or edema NEURO: Alert and oriented to person, follows commands Vital Signs (last 8hr) Date Time Temp Pulse Resp B/P (MAP) Pulse Ox O2 Delivery O2 Flow Rate FiO2 07/15/24 19:05 75 16 122/72 99 Nasal Cannula 2.0 07/15/24 18:54 77 16 118/76 100 Nasal Cannula 2.0 07/15/24 18:38 76 18 07/15/24 18:38 76 17 N/Cannula Low lpm 3.0 32 07/15/24 18:35 76 123/76 99 3.0 07/15/24 18:20 97.5 76 16 109/75 97 Nasal Cannula 3.0 07/15/24 18:15 77 16 118/69 96 Nasal Cannula 3.0 07/15/24 18:10 81 15 112/63 96 Nasal Cannula 3.0 07/15/24 18:05 77 16 106/58 96 Nasal Cannula 3.0 07/15/24 18:00 80 16 110/65 96 Nasal Cannula 3.0 07/15/24 17:55 79 17 117/69 96 Nasal Cannula 3.0 07/15/24 17:50 82 15 136/76 98 Nasal Cannula 3.0 07/15/24 17:45 83 16 136/77 98 Nonrebreathing Mask 10.0 07/15/24 17:40 89 15 128/74 98 Nonrebreathing Mask 10.0 07/15/24 17:35 97.5 95 14 122/75 99 Nonrebreathing Mask 10.0 07/15/24 12:00 99.5 91 16 112/73 99 Room Air LABS: Hematology Labs: Test 07/15/24 08:10 07/15/24 03:38 07/14/24 08:12 Range/Units White Blood Count 3.8 L 4.8-10.8 K/uL Red Blood Count 2.51 L 4.00-5.50 MIL/uL Hemoglobin 8.3 L 12.0-16.0 g/dL Hematocrit 26.7 L 36-48 % Mean Corpuscular Volume 106.4 H 79-99 fL Mean Corpuscular Hemoglobin 33.1 H 27.0-33.0 pg Mean Corpuscular Hemoglobin Concent 31.1 L 32.0-36.0 g/dL Red Cell Distribution Width 19.3 H 11.0-15.5 % Platelet Count 219 130-400 K/uL Mean Platelet Volume 10.7 H 7.5-10.5 fL Nucleated Red Blood Cells 0.0 0.0-0.19 % Immature Granulocyte % (Auto) 0.6 0-1 % Neutrophils (%) (Auto) 62.7 40.0-77.0 % Lymphocytes (%) (Auto) 25.8 21.0-51.0 % Monocytes (%) (Auto) 9.2 3.0-13.0 % Eosinophils (%) (Auto) 1.1 0.0-8.0 % Basophils (%) (Auto) 0.6 0.0-5.0 % Neutrophils # (Auto) 2.2 1.8-7.7 K/uL Lymphocytes # (Auto) 0.9 L 1.0-4.8 K/uL Monocytes # (Auto) 0.3 0.1-1.0 K/uL Eosinophils # (Auto) 0.04 0.00-0.70 K/uL Basophils # (Auto) 0.02 0.00-0.20 K/uL Absolute Immature Granulocyte (auto 0.02 0-1 K/uL Segmented Neutrophils % 64 40-70 % Lymphocytes % (Manual) 30 22-44 % Monocytes % (Manual) 2 2-9 % Eosinophils % (Manual) 2 1-6 % Basophils % (Manual) 1 0-2 % Differential Comment MANUAL DIFFERENTIAL Reactive Lymphocytes 1 H 0-0 % White Cell Morphology Comment NORMAL Platelet Morphology Comment ADEQUATE Red Blood Cell Morphology See comments Chemistry Labs: Test 07/15/24 11:48 07/15/24 08:10 07/15/24 03:38 07/14/24 11:13 Range/Units Whole Blood Glucose 126 H 70-110 MG/DL Potassium Level 4.5 3.5-5.1 mmol/L Sodium Level 140 136-145 mmol/L Chloride Level 107 101-111 mmol/L Carbon Dioxide Level 26 21-32 mmol/L Blood Urea Nitrogen 4 L 7-18 mg/dL Creatinine 0.4 L 0.5-1.0 mg/dL Glomerular Filtration Rate Calc 108 >90 mL/min Random Glucose 138 #H 70-105 mg/dL Total Calcium 7.2 L 8.5-10.1 mg/dL Magnesium Level 1.80 1.80-2.40 mg/dL Total Bilirubin 0.2 # 0.2-1.0 mg/dL Aspartate Amino Transf (AST/SGOT) 22 10-37 U/L Alanine Aminotransferase (ALT/SGPT) 12 # 12-78 U/L Alkaline Phosphatase 51 50-136 U/L Total Protein 3.9 L 6.0-8.3 g/dL Albumin 1.0 L 3.5-5.0 g/dL Vitamin D 25-Hydroxy 76.1 30.0-100.0 ng/mL Bedside Glucose Comment Notified Nurse Test 07/14/24 08:12 Range/Units B-Type Natriuretic Peptide 82 0-100 pg/mL Vitamin B12 Level 2355 H 193-986 pg/mL DIAGNOSTICS / RADIOLOGY RESULTS: [ ] Signed PATIENT: EFRAIN BAKER I MR#: [id number] : 1955 SEX: F AGE: 69 LOCATION: 2AH ORDER 2300 STATUS: ADM IN REPORT#: [id number] SERVICE 0400 REASON: please get lateral view, s/p esophageal stent placement ORDERING PHYSICIAN: MALA CHARLES PROCEDURE: CXR1VW - CHEST 1VW CHEST 1VW HISTORY: Post esophageal stent placement COMPARISON: None FINDINGS: Crosstable lateral views of the chest were obtained. Bilateral pulmonary infiltrates are seen. This is a limited study. Evaluation for esophageal stent is limited. The heart is borderline enlarged. No evidence of aortic calcification is seen. IMPRESSION: 1. Limited study. Bilateral pulmonary infiltrates. DICTATED BY: CARLOS HARPER MD DATE: 07/15/24917 ELECTRONICALLY SIGNED BY: CARLOS HARPER MD DATE: 07/15/24923 PLAN planned gtube placement for today. continue TPN until ok to use gtube, continue iv abx with meropenem. Pending sputum culture, order procalcitonin Consider initiating lasix and spironolactone once able to tolerate oral diet Conservative management and monitoring of pleural effusion GI for management of esophageal stricture Disposition per primary NEURO: Minimize central acting medications as possible. Maintain fall precautions, adequate lighting during the day PULMONARY: Supplemental 02 as needed. Maintain aspiration precautions at all times CARDIOVASCULAR: Follow hemodynamics. Vital signs per facility protocol GI & NUTRITION: Continue with nutritional support. Continue stool softeners and laxatives as needed. KIDNEYS & ELECTROLYTES: Strict monitoring of intake, output and overall fluid balance. Avoid nephrotoxic medications to the extent possible. Medications to be dosed according to renal function. Monitor electrolytes and replace as needed ENDOCRINE: Maintain blood glucose between 100-180 at all times. Hypoglycemia protocol in place INFECTIOUS DISEASE: Trend temperature, WBC and procalcitonin level Follow cultures, deescalate antibiotics as soon as possible. Panculture if new onset fever ONCOLOGY/HEMATOLOGY/COAGULATION: Monitor for s/s of bleeding Monitor hemoglobin, coagulation studies as needed SKIN: Pressure ulcer prevention per facility protocol Specialty mattress ORTHO/REHAB: Continue PT/OT Prophylaxis: Continue GI and DVT prophylaxis Code Status: Full Resuscitation Disposition: sunny pending acceptance Other: Total patient care time exceeds 35 minutes excluding all procedures. LANDON WALKER [facility] Jul 15, 2024 19:46
--- NOTE | 2024-07-15 19:46 | HMCIMG ---
ABDOMEN SINGLE VIEW INDICATION: Pain COMPARISON: None FINDINGS: Supine view only No abnormal bowel dilation noted. No abnormal calcifications identified. No gross free air detected. Retrievable IVC filter is in place. Migrated esophageal stent projects over the left mid abdomen, but perhaps within the stomach. IMPRESSION: Migrated esophageal stent projects over the left mid abdomen, but perhaps within the stomach rather than proximal small bowel.
[2024-07-15] MEDS: M.V.I. IV [ADULT] 10 ML, MULTITRACE-4 ADULT 10ML VIAL 3 ML in CLINIMIX-E 5%AA /D15%W 2... IV ONE (22:29)
[2024-07-16] VITALS (17 sets, daily range): BP systolic 119–141; BP diastolic 64–88; PULSE 67–98; RESP 15–20; TEMP 97.5–99.4; O2SAT 96–100
[2024-07-16 03:55] LABS: BASOPHILS # (AUTO) 0.02 K/uL (0.00-0.20); BASOPHILS % (AUTO) 0.3 % (0.0-5.0); EOSINOPHILS # (AUTO) 0.02 K/uL (0.00-0.70); EOSINOPHILS % (AUTO) 0.3 % (0.0-8.0); HEMATOCRIT 28.5 % (36-48); IMMATURE GRANULOCYTE ABSOLUTE 0.02 K/uL (0-1); LYMPHOCYTES # (AUTO) 0.9 K/uL (1.0-4.8); LYMPHOCYTES % (AUTO) 15.3 % (21.0-51.0); MEAN CORPUSCULAR HEMOGLOBIN 32.2 pg (27.0-33.0); MEAN CORPUSCULAR HGB CONC 31.2 g/dL (32.0-36.0); MEAN CORPUSCULAR VOLUME 103.3 fL (79-99); MONOCYTES # (AUTO) 0.4 K/uL (0.1-1.0); MONOCYTES % (AUTO) 6.5 % (3.0-13.0); NEUTROPHILS # (AUTO) 4.5 K/uL (1.8-7.7); NEUTROPHILS % (AUTO) 77.3 % (40.0-77.0); PLATELET COUNT (AUTO) 205 K/uL (130-400); RED BLOOD CELL COUNT(AUTO) 2.76 MIL/uL (4.00-5.50); RED CELL DISTRIBUTION WIDTH 18.6 % (11.0-15.5); WHITE BLOOD COUNT (AUTO) 5.8 K/uL (4.8-10.8)
[2024-07-16 04:16] LABS: BILIRUBIN,TOTAL 0.2 mg/dL (0.2-1.0); CREATININE 0.3 mg/dL (0.5-1.0); MAGNESIUM 2.1 mg/dL (1.80-2.40); POTASSIUM 3.1 mmol/L (3.5-5.1); TOTAL PROTEIN, SERUM 4.1 g/dL (6.0-8.3)
[2024-07-16] MEDS: PoTASSium chloRIDE 10MEQ/100ML 100 ML IV PRN (04:42)
--- NOTE | 2024-07-16 05:20 | NUR ---
Pain mgmt Pt has been without pain most of shift. At this time, pt stating having severe 10/10 pain to back, R hip, and G tube site. Notified VINEGAR MAKER electronic integrated systems mechanic as pt has no PRN pain management - prior PRN order fell off emar. Per TG Ontiveros, okay to restart prev PRN order. Addendum: 07/16/24 at 0523 by YUMIKO CAMPA LVN LVN Addendum to add: okay to restart prev PRN order of Morphine 2mg.
[2024-07-16] MEDS: morPHINE 2 MG SYG IVP PRN (05:26)
[2024-07-16] MEDS ORDERED: PoTASSium chloRIDE 10MEQ/100ML 100 ML IV PRN (09:30)
[2024-07-16] MEDS ORDERED: GLUCAGON 1MG KIT 1 MG ML IM PRN (12:00)
[2024-07-16] MEDS ORDERED: LIDOCAINE PF 100MG/5ML (2%) SYRINGE 5ML ONE (12:01)
[2024-07-16] MEDS ORDERED: proPOFol 10 MG/ML 20ML VIAL IV ONE (12:01)
--- NOTE | 2024-07-16 13:29 | NUR ---
[facility] Consult: Patient assessed by wound healing team. See wound assessment. Assessment and recommendations provided to primary nurse. Education provided. Addendum: 07/16/24 at 1411 by ANA BENSON RN RN/ Amended: Links added.
--- NOTE | 2024-07-16 13:53 | DS ---
Discharge Summary Hospital Course Summary: DATE OF ADMISSION:[07/09/24] DATE OF DISCHARGE:[07/16/24] DISPOSITION:[[facility]] CONDITION:[medically cleared] CONSULTANTS:[gi, bis] FOLLOW UP APPOINTMENTS:[Follow up with PCP in 2 to 3 days, GI within 1 week and BIS within 1 week] PROCEDURES:[EGD when stent placement 07/14/2024, peg tube placement 07/16/2019, stent removal due to displacement 07/16/2024] IMAGING: report attached to summary MICROBIOLOGY: report attached to summary ACTIVITY:[Bed-bound] HOME MEDICATIONS: see med recc NEW MEDICATIONS:[See med rec] EMERGENCY INSTRUCTIONS: The patient was instructed to present to the nearest Emergency departmentr or call 911 once their symptoms will return or worsen Grinder Operator Automatic(s): Ms. Slade is a 69-year-old female who is seen and examined today on 07/09/2024. Patient is a good historian of personal health. Patient states he came to the emergency department, "my esophageal stricture is block and I needed open again."Patient states two days ago he started having difficulty swallowing. Patient went to see her survey research analyst today and was told she should go to the emergency department. Throughout the hospitalization CT chest/abdomen was performed and showed left upper lobe lingual and left lower lobe atelectasis evolving pneumonia likely aspiration, non typical right lung pneumonia, very small pericardial effusion, ascites, anasarca moderate, distal colon diverticulosis and moderate stool burden. 2D echo showed LVEF 60 65% stage I diastolic dysfunction and large left-sided pleural effusion. Chest x-ray showed improvement in the infiltrate left side when compared to prior exam. Patient underwent EGD with stent placement on 07/14/2024dr Porfirio, then PEG tube placement on 07/15/[address] Armendariz followed by same stent removal on 07/16/2024 due to migrated esophageal stent projects over the left mid abdomen but perhaps within the stomach. Nurse practitioner was able to talk to LAMP DEVELOPER Toshia Reyes and per conversation patient is cleared to be discharged home today after procedure. Dietary was consulted for PEG tube feedings. Per GI follow-up dietary recommendations outpatient. Patient is cleared to be discharged back to [facility]. Follow up with PCP 2 to 3 days. Follow up with GI within one week. Follow up with BIS within one week. UPDATE 14:11 LAMP DEVELOPER received a text message from Toshia Reyes from GI that Dr. Monroy would like to perform upper GI scope, and to hold dc/ transfer to [facility]. OK to start G tube feedings. Procedure(s): REVIEW OF SYSTEMS CONSTITUTIONAL: Denies fevers, chills, or night sweats. wt loss as described above of about 80lbs in 6 months NEUROLOGICAL: no n/t, no hx of strokes ENT: No hearing loss, otalgia, otorrhea, rhinitis, rhinorrhea, or sore throat.+very raspy voices CARDIOVASCULAR: Denies any exertional angina, dyspnea on exertion, orthopnea, paroxysmal nocturnal dyspnea, palpitations, life-threatening arrhythmias, claudication. GASTROINTESTINAL: See history of present illness, + esophageal stenosis and dysphagia for six months. Positive nausea and intermittent vomiting, regular bowel movements no diarrhea no bloody stools GENITOURINARY: Denies increased frequency, no urgency or pain with urination. Patient states he is continent to both bowel and bladder. ENDOCRINOLOGIC: Denies polyuria, polydipsia, polyphagia or heat/cold intolerances. HEMATOLOGIC: Patient did have a clot in her upper extremity a few months back. That resolved on its own per the patient's spouse, Cedrick. ONCOLOGIC: Denies personal history of malignancy. DERMATOLOGIC: Easy bruisability with multiple ecchymotic areas to the neck. PSYCHIATRIC: Denies any suicidal or homicidal ideation. Denies hallucinations. Positive depressive symptomatology because of health decline with the last six months. Assessment/Plan: ASSESSMENT: [1. Left upper and lower lobe aspiration pneumonia POA 2 small pericardial effusion per 2D echo POA 3. Uncontrolled Hypertension POA 4. Hyperlipidemia POA 5. History of anasarca POA 6. Severe protein calorie malnutrition POA 7. Bed-bound x6 months POA 8. Depression likely adjustment reaction to severe health decline over the last six months POA 9. Leukopenia POA 10. History of orthostatic hypotension POA 11. Esophageal stricture history 12. S/p EGD with stent placement 07/14/2024 s/p PEG tube placement 07/15/24 s/p stent removal due to displacement 07/16/2024 13. hypothyroidism POA 14. Macrocytic anemia, POA 15. B12 deficiency on oral replacement POA Perforation of esophagus per CT abdomen/pelvis POA Esophageal dysfunction per CT abdomen/chest POA Acute on chronic diastolic heart failure 2D echo EF 60 65% stage I diastolic dysfunction Acute complicated cystitis POA Pseudomonas aeruginosa urine culture ] Home Medications: Reported Medications Promethazine HCl (Promethazine HCl) 25 Mg Tablet, 1 TAB PO Q6HPRN PRN for nausea/vomiting for 7 Days, #28 TAB 0 Refills 05/04/24 Montelukast Sodium (Montelukast Sodium) 10 Mg Tablet, 1 TAB PO DAILY for 30 Days, #30 TAB 0 Refills 05/04/24 Loratadine (Loratadine) 10 Mg Tablet, 1 TAB PO DAILY for allergy symptoms for 30 Days, #30 TAB 0 Refills 05/04/24 Megestrol Acetate (Megestrol Acetate) 400 Mg/10 Ml (40 Mg/Ml) Oral.susp, 10 ML PO DAILY for 30 Days, #300 ML 0 Refills 05/04/24 Fludrocortisone Acetate (Fludrocortisone Acetate) 0.1 Mg Tablet, 1 TAB PO DAILY for 30 Days, #30 TAB 0 Refills 05/04/24 Midodrine HCl (Midodrine HCl) 5 Mg Tablet, 1 TAB PO TID for 30 Days, #90 TAB 0 Refills 05/04/24 Sucralfate (Sucralfate) 1 Gram Tablet, 1 TAB PO TID for 30 Days, #90 TAB 0 Refills 05/04/24 Quetiapine Fumarate (Seroquel) 50 Mg Tablet, 1 TAB PO HS for 30 Days, #30 TAB 0 Refills 05/04/24 Esomeprazole Magnesium (Esomeprazole Magnesium) 40 Mg Capsule.dr, 1 CAP PO DAILY for 30 Days, #30 CAP 0 Refills 05/04/24 Ergocalciferol (Vitamin D2) (Vitamin D2) 1,250 Mcg (96328 Unit) Capsule, 1250 MCG PO AM, CAP 05/04/24 Simvastatin (Simvastatin) 20 Mg Tablet, 20 MG PO AM, TAB 05/04/24 Bisacodyl (Bisacodyl) 5 Mg Tablet.dr, 5 MG PO AM, TAB 05/04/24 Potassium Chloride (Klor-Con 10) 10 Meq Tablet.er, 1 TAB PO DAILY for 30 Days, #30 TAB 0 Refills 05/04/24 Lansoprazole (Lansoprazole) 30 Mg Capsule.dr, 30 MG PO BID, CAP 05/04/24 Sertraline HCl (Sertraline HCl) 100 Mg Tablet, 1 TAB PO DAILY for 30 Days, #30 TAB 0 Refills 05/04/24 Folic Acid (Folic Acid) 0.8 Mg Capsule, 1 CAP PO DAILY for 30 Days, #30 CAP 0 Refills 05/04/24 Cyanocobalamin (Vitamin B-12) (B-12) 1,000 Mcg Tablet, 1 TAB PO DAILY for 30 Days, #30 TAB 0 Refills 05/04/24 Apixaban (Eliquis) 5 Mg Tablet, 1 TAB PO BID for 30 Days, #60 TAB 0 Refills 05/04/24 Levothyroxine Sodium (Levothyroxine) 50 Mcg Capsule, 1 CAP PO DAILY for 30 Days, #30 CAP 0 Refills 05/04/24 Ondansetron HCl (Ondansetron HCl) 8 Mg Tablet, 1 TAB PO TID for nausea/vomiting for 10 Days, #30 TAB 0 Refills 05/04/24 Famotidine (Famotidine) 40 Mg Tablet, 1 TAB PO DAILY for 30 Days, #30 TAB 0 Refills 05/04/24 [Azasan] No Conflict Check, 50 MG PO AM 05/04/24 Time spent arranging discharge: 31-60 minutes ATTESTATION BY PHYSICIAN I have seen and examined the patient. I reviewed the documentation, medical decision making, and treatment plan as noted by the mid-level provider above. I agree with the findings and plan of care. LELE GALEANO MD, KATARZYNA B APRN Jul 16, 2024 13:53
[2024-07-16] MEDS: PoTASSium chloRIDE 20MEQ ER 20 MEQ ERTAB PO ONE (14:43)
--- NOTE | 2024-07-16 14:51 | PN ---
GENERAL SURGERY PROGRESS NOTE Date/Time Patient Seen: [ ] Problem List: [ ] Interval History: No acute events overnight. 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 Patient also had stent removed by GI during EGD. F/u CT concerning for SBO; however, clinical presentation does not correlate and likely due to surgical changes. Current Medications Medications (Trade) Dose Ordered Sig/Jennifer Route Start Time Stop Time Status Last Admin Dose Admin Albumin Human 50 ml @ 0 mls/hr AD IV 07/13/24 07:30 07/13/24 07:17 DC Albumin Human 100 ml @ 0 mls/hr AD IV 07/15/24 08:30 07/16/24 08:29 DC Albuterol (DUOneb) 1 UDVIAL [id number] IH 07/10/24 00:00 08/09/24 00:00 07/16/24 13:13 1 UDVIAL Bacitracin (Bacitracin 28.4gm) apply to left calf and l... DAILY TP 07/17/24 09:00 08/16/24 08:59 Bisacodyl (DulcoLAX 5MG TAB) 5 mg AM PO 07/12/24 09:00 08/11/24 08:59 Ceftazidime (ForTAZ/TAZidime) 2 gm Q8H IVPB 07/13/24 15:00 07/13/24 15:06 DC Ceftriaxone Sodium (ROCEphine 1G INJ) 1 gm ONCE IVPB 07/09/24 19:19 07/09/24 23:59 DC 07/09/24 19:19 1 GM Dextrose/Lactated Ringer's 1,000 ml @ 50 mls/hr Q20H IV 07/11/24 20:00 08/10/24 19:59 07/14/24 11:34 50 MLS/HR Doxycycline Hyclate 250 ml @ 125 mls/hr Q12H IV 07/12/24 05:00 07/14/24 08:05 DC 07/14/24 05:12 125 MLS/HR Enoxaparin Sodium (Lovenox) 40 mg DAILY SQ 07/10/24 09:00 07/10/24 19:01 DC 07/10/24 10:15 40 MG Ergocalciferol (Drisdol) 1,250 unit AM PO 07/12/24 09:00 07/12/24 07:47 DC Famotidine (Pepcid 20mg Vial) 20 mg DAILY IV 07/10/24 09:00 07/12/24 07:38 DC 07/11/24 09:00 20 MG Fludrocortisone Acetate (Fludrocortisone Acetate) 0.1 mg DAILY PO 07/12/24 09:00 08/11/24 08:59 Furosemide (LASix 20MG TAB) 20 mg DAILY PO 07/12/24 09:00 07/12/24 04:49 DC Home Med (Home Medication) (Folic Acid 1 CAP) DAILY PO 07/12/24 09:00 08/11/24 08:59 Home Med (Home Medication) ([Azasan] 50 MG) AM PO 07/12/24 09:00 08/11/24 08:59 Insulin Human Regular (humuLIN R 100 UNIT/ML 3ML) INSULIN SLIDING SCAL... ACHS SQ 07/15/24 16:30 07/16/24 11:38 DC Insulin Human Regular (humuLIN R 100 UNIT/ML 3ML) INSULIN SLIDING SCAL... ACHS SQ 07/16/24 16:30 08/15/24 16:29 Lactated Ringer's 1,000 ml @ 75 mls/hr [id number] IV 07/09/24 19:30 07/11/24 19:49 DC 07/10/24 21:39 75 MLS/HR Levothyroxine Sodium (SYNTHroid 50MCG TAB) 50 mcg SYN PO 07/13/24 06:30 08/12/24 06:29 Loratadine (LORATAdine 10 mg) 10 mg DAILY PO 07/12/24 09:00 08/11/24 08:59 Magnesium Sulfate 50 ml @ 0 mls/hr PROTOCOL IV 07/13/24 07:30 07/13/24 07:14 DC Meropenem (Merrem 1gm) 1 gm Q8H IVPB 07/13/24 16:00 07/14/24 16:54 DC 07/14/24 11:32 1 GM Meropenem (Merrem 1gm) 1 gm Q8H IVPB 07/14/24 20:00 07/24/24 19:59 07/16/24 14:42 1 GM Metronidazole/ Sodium Chloride 100 ml @ 100 mls/hr Q8H6 IVPB 07/13/24 22:00 07/13/24 15:06 DC Midodrine (PROAMatine 5 MG TABLET) 5 mg TID PO 07/12/24 09:00 08/11/24 08:59 07/16/24 14:42 5 MG Miscellaneous Medication (Esomeprazole Magnesium ) 1 cap DAILY PO 07/12/24 09:00 07/12/24 07:38 DC Miscellaneous Medication (Famotidine ) 1 tab DAILY PO 07/12/24 09:00 07/12/24 07:38 DC Miscellaneous Medication (Ondansetron HCl ) 1 tab TID PO 07/12/24 09:00 07/12/24 07:47 DC Miscellaneous Medication (Sertraline HCl ) 1 tab DAILY PO 07/12/24 09:00 07/12/24 07:41 DC Montelukast Sodium (SinguLAIR) 10 mg DAILY PO 07/12/24 09:00 08/11/24 08:59 Pantoprazole Sodium (PROTonix 40MG INJ) 40 mg BID IVP 07/14/24 21:00 08/13/24 20:59 07/15/24 20:38 40 MG Pantoprazole Sodium (PROTonix 40MG INJ) 40 mg DAILY IVP 07/14/24 09:00 07/15/24 07:56 DC 07/14/24 11:38 40 MG Pantoprazole Sodium (PROTonix 40MG TAB) 40 mg DAILY PO 07/12/24 09:00 07/14/24 08:39 DC Piperacillin Sod/ Tazobactam Sod (Zosyn 3.375gm+NS 50ml) 3.375 gm Q12H IV 07/12/24 05:00 07/12/24 04:51 DC Piperacillin Sod/ Tazobactam Sod (Zosyn 3.375gm+NS 50ml) 3.375 gm ZOSY8 IV 07/09/24 21:00 07/13/24 14:39 DC 07/13/24 12:51 3.375 GM Potassium Chloride 100 ml @ 50 mls/hr PROTOCOL IV 07/15/24 08:30 07/15/24 08:27 DC Potassium Chloride 100 ml @ 50 mls/hr PROTOCOL IV 07/16/24 09:30 08/15/24 09:29 Potassium Chloride 100 ml @ 50 mls/hr PROTOCOL IV 07/13/24 07:30 07/13/24 07:14 DC Potassium Chloride 100 ml @ 50 mls/hr PROTOCOL IV 07/13/24 11:00 07/13/24 07:14 DC Potassium Chloride 100 ml @ 50 mls/hr PROTOCOL IV 07/13/24 16:00 07/13/24 07:14 DC Quetiapine Fumarate (SEROquel 25 mg TAB) 50 mg HS PO 07/12/24 21:00 08/11/24 20:59 Sertraline HCl (ZOloft 50 mg tab) 150 mg DAILY PO 07/11/24 09:00 08/10/24 08:59 Simvastatin (zoCOR) 20 mg HS PO 07/12/24 21:00 08/11/24 20:59 Sodium Chloride 1,000 ml @ 500 mls/hr Q2H IV 07/09/24 17:34 07/10/24 01:15 DC 07/09/24 19:34 500 MLS/HR Spironolactone (Aldactone 25mg) 25 mg DAILY PO 07/12/24 09:00 07/12/24 04:49 DC Sucralfate (Carafate) 1 gm TID PO 07/12/24 09:00 08/11/24 08:59 07/16/24 14:42 1 GM Vitamin B Complex (Vitamin B-12) 1,000 mcg DAILY PO 07/12/24 09:00 08/11/24 08:59 Physical Examination: GENERAL: [No acute distress.] HEAD: [Normal with no signs of head trauma.] EYES: [PERRLA, EOMI, conjunctiva and sclera normal.] ENT: [Hearing grossly intact, normal oropharynx.] NECK: [Supple without JVD. There is no tenderness, lymphadenopathy, or masses. No thyromegaly. Normal carotid upstrokes without bruits.] LUNGS: [Clear breath sounds bilaterally. There are right basilar rales one third of the way up the chest. No wheezes, or rhonchi.] HEART: [Normal rate and rhythm. Normal S1 and S2 without mumurs, gallop or rub.] VASC: [Peripheral pulses +2 bilaterally.] ABD: [Bowel sounds normal, soft, nontender, no masses, no organomegaly. No audible bruits.] : [Not examined] LYMPH: [No lymphadenopathy noted.] EXT: [No clubbing, cyanosis or edema.] SKIN: [No rashes or lesions noted.] NEURO: [Awake, alert, and oriented x3. No focal sensory or strength deficits noted.] Vital Signs (last 8hr) Date Time Temp Pulse Resp B/P (MAP) Pulse Ox O2 Delivery O2 Flow Rate FiO2 07/16/24 13:16 84 18 N/Cannula Low lpm 2.0 07/16/24 13:15 84 18 07/16/24 12:45 97.9 84 17 133/72 100 Nasal Cannula 3.0 07/16/24 12:40 85 18 135/79 100 Nasal Cannula 3.0 07/16/24 12:35 87 17 140/84 100 Nasal Cannula 3.0 07/16/24 12:30 89 15 141/88 100 Nasal Cannula 3.0 07/16/24 12:25 94 16 139/87 100 Nonrebreathing Mask 10.0 07/16/24 12:20 95 17 125/85 100 Nonrebreathing Mask 10.0 07/16/24 12:15 97.5 98 16 119/81 100 Nonrebreathing Mask 10.0 07/16/24 12:03 Mask 10.0 07/16/24 12:03 Mask 07/16/24 10:52 99.3 85 18 132/75 99 07/16/24 08:00 98.6 85 20 131/64 96 Room Air 07/16/24 07:00 96 Room Air* 0 21 Laboratory: [ ] Hematology Labs: Test 07/16/24 03:44 Range/Units White Blood Count 5.8 # 4.8-10.8 K/uL Red Blood Count 2.76 L 4.00-5.50 MIL/uL Hemoglobin 8.9 L 12.0-16.0 g/dL Hematocrit 28.5 L 36-48 % Mean Corpuscular Volume 103.3 H 79-99 fL Mean Corpuscular Hemoglobin 32.2 27.0-33.0 pg Mean Corpuscular Hemoglobin Concent 31.2 L 32.0-36.0 g/dL Red Cell Distribution Width 18.6 H 11.0-15.5 % Platelet Count 205 130-400 K/uL Mean Platelet Volume 10.2 7.5-10.5 fL Immature Granulocyte % (Auto) 0.3 0-1 % Neutrophils (%) (Auto) 77.3 H 40.0-77.0 % Lymphocytes (%) (Auto) 15.3 L 21.0-51.0 % Monocytes (%) (Auto) 6.5 3.0-13.0 % Eosinophils (%) (Auto) 0.3 0.0-8.0 % Basophils (%) (Auto) 0.3 0.0-5.0 % Neutrophils # (Auto) 4.5 1.8-7.7 K/uL Lymphocytes # (Auto) 0.9 L 1.0-4.8 K/uL Monocytes # (Auto) 0.4 0.1-1.0 K/uL Eosinophils # (Auto) 0.02 0.00-0.70 K/uL Basophils # (Auto) 0.02 0.00-0.20 K/uL Absolute Immature Granulocyte (auto 0.02 0-1 K/uL Nucleated Red Blood Cells 0.0 0.0-0.19 % Chemistry Labs: Test 07/16/24 10:22 07/16/24 03:44 07/15/24 03:38 Range/Units Whole Blood Glucose 116 H 70-110 MG/DL Sodium Level 140 136-145 mmol/L Potassium Level 3.1 L 3.5-5.1 mmol/L Chloride Level 109 101-111 mmol/L Carbon Dioxide Level 27 21-32 mmol/L Blood Urea Nitrogen 11 7-18 mg/dL Creatinine 0.3 L 0.5-1.0 mg/dL Glomerular Filtration Rate Calc 116 >90 mL/min Random Glucose 146 H 70-105 mg/dL Total Calcium 7.2 L 8.5-10.1 mg/dL Magnesium Level 2.10 1.80-2.40 mg/dL Total Bilirubin 0.2 0.2-1.0 mg/dL Aspartate Amino Transf (AST/SGOT) 20 10-37 U/L Alanine Aminotransferase (ALT/SGPT) 12 12-78 U/L Alkaline Phosphatase 56 50-136 U/L Total Protein 4.1 L 6.0-8.3 g/dL Albumin 1.0 L 3.5-5.0 g/dL Vitamin D 25-Hydroxy 76.1 30.0-100.0 ng/mL Diagnostics / Radiology: [Copy/Paste Echos/Imaging Report here] Impression and Plan: Case discussed with Dr. Monroy and Dr. Messi Donovan Clinical presentation does not correlate with SBO Recommend to resume g tube feedings Will obtain upper gi series with oral contrast Friday MALA CHARLES ROUGH PATCHER Jul 16, 2024 14:51
[2024-07-16] MEDS ORDERED: DIATR MEGLU/DIATRIZOATE SODIUM 30 ML BOTTLE ONE (15:26)
[2024-07-16] MEDS: INSULIN humuLIN R 100 UNIT/ML 3ML SQ SCH (16:30)
--- NOTE | 2024-07-16 17:20 | HMCIMG ---
CT CHEST ABDOMEN W/O CONTRAST HISTORY: Esophageal tear COMPARISON: 07/09/2024 TECHNIQUE: Multiple sequential axial images of the chest were obtained from the thoracic inlet through upper abdomen. Patient was not given contrast through intravenous route. Gastrografin was given. FINDINGS: There are bilateral pleural effusions with subsegmental atelectasis left more than right. Interstitial fibrosis. Tiny bilateral small pulmonary nodules are seen. There is small pericardial effusion. Contrast is seen within the esophagus. No extravasation of contrast is seen to suggest esophageal tear. There is a small hiatal hernia. There is no evidence of pneumothorax. There are normal size mediastinal and hilar lymph nodes. The heart is not enlarged. Degenerative changes of the thoracolumbar spine are present. There is no evidence of adrenal nodule. IMPRESSION: 1. No evidence of pulmonary nodule or effusion is seen. CT CHEST ABDOMEN W/O CONTRAST HISTORY: Esophageal tear COMPARISON: None TECHNIQUE: Multiple sequential axial images of the abdomen were obtained from the dome of the diaphragm through iliac crests. Patient was not given contrast through intravenous route. Oral contrast was not given. FINDINGS: There is free intraperitoneal air with small amount of ascites. Contrast is seen within the stomach without diffuse extravasation. Findings are suspicious for bowel perforation and clinical correlation is recommended..Surgical consultation is recommended. IVC filter is seen. The liver, spleen, adrenal glands and pancreas are unremarkable. There is no evidence of hydronephrosis bilaterally. No evidence of renal stone is seen. Fecal material is seen in the colon. There are normal size retroperitoneal and mesenteric lymph nodes. No ascites is seen. Atherosclerotic changes are present. There is soft tissue emphysema with anasarca. IMPRESSION: 1. There is free intraperitoneal air with small amount of ascites. Contrast is seen within the stomach without diffuse extravasation. Findings are suspicious for bowel perforation and clinical correlation is recommended..Surgical consultation is recommended. Report given to critical care team. CT was performed with one or more following dose reduction techniques: automated exposure control, adjustment of the mA and kv according to patient's size, or use of a iterative reconstruction technique.
--- NOTE | 2024-07-16 18:34 | PN ---
[facility] PROGRESS NOTE Date Patient Seen: Jul 16, 2024 Time of Visit: 18:34 Supervising Physician: Dr. Shahid Hooks Primary Care Physician: [CATALYST] Outpatient Specialists: [ ] Inpatient Consults: [BIS] PROBLEM LIST: Esophageal tear s/p EGD and stent placement. 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 She is in no apparent distress. She is currently recieving TPN via PICC line. She is s/p EGD with esophageal stent placement by Dr Monroy yesterday . She is pending Gtube placement today per DR Armendariz. She denies any pain or shortness of breath. She reports no nausea or vomiting. She is more alert than previous days and reports she is feeling well. not at bedside today. Labs unremarkable. Electrolytes to be replaced per protocols. 07/16/2024: At the time of my evaluation, the patient was lying in bed. Patient had no new complaint. Vital signs today were stable. Laboratory data today notable for low H&H 8.9/28.5 and a platelet count of 205. Chemistry panel was notable for a potassium of 3.1. CT imaging of the chest and abdomen showed free intraperitoneal air with small amount of ascites. Contrast was seen within the stomach without diffuse extravasation, this raised concern for bowel perforation. The patient continues on antibiotic therapy with IV Merrem and is so far tolerating well. The staff nurse reports no acute events otherwise. No other complaint REVIEW OF SYSTEMS: 12 point ROS reviewed with patient. Pertinent positives mentioned above. Otherwise negative. PHYSICAL EXAM: GENERAL: alert, weak, awake oriented x 3, moderate to severe scoliosis HEENT: EOMI, Sclera non icteric, moist mucosa NECK: Supple, no JVD, trachea midline LUNGS: Clear breath sounds bilaterally. No wheezes HEART: Regular rate and rhythm. Normal S1 and S2, without murmurs ABD: Abdomen soft, nontender. Bowel sounds present EXT: No clubbing cyanosis or edema NEURO: Alert and oriented to person, follows commands Vital Signs (last 8hr) Date Time Temp Pulse Resp B/P (MAP) Pulse Ox O2 Delivery O2 Flow Rate FiO2 07/16/24 16:36 97.9 89 17 139/75 100 Nasal Cannula 2.0 07/16/24 13:16 84 18 N/Cannula Low lpm 2.0 07/16/24 13:15 84 18 07/16/24 12:45 97.9 84 17 133/72 100 Nasal Cannula 3.0 07/16/24 12:40 85 18 135/79 100 Nasal Cannula 3.0 07/16/24 12:35 87 17 140/84 100 Nasal Cannula 3.0 07/16/24 12:30 89 15 141/88 100 Nasal Cannula 3.0 07/16/24 12:25 94 16 139/87 100 Nonrebreathing Mask 10.0 07/16/24 12:20 95 17 125/85 100 Nonrebreathing Mask 10.0 07/16/24 12:15 97.5 98 16 119/81 100 Nonrebreathing Mask 10.0 07/16/24 12:03 Mask 10.0 07/16/24 12:03 Mask 07/16/24 10:52 99.3 85 18 132/75 99 LABS: Hematology Labs: Test 07/16/24 03:44 Range/Units White Blood Count 5.8 # 4.8-10.8 K/uL Red Blood Count 2.76 L 4.00-5.50 MIL/uL Hemoglobin 8.9 L 12.0-16.0 g/dL Hematocrit 28.5 L 36-48 % Mean Corpuscular Volume 103.3 H 79-99 fL Mean Corpuscular Hemoglobin 32.2 27.0-33.0 pg Mean Corpuscular Hemoglobin Concent 31.2 L 32.0-36.0 g/dL Red Cell Distribution Width 18.6 H 11.0-15.5 % Platelet Count 205 130-400 K/uL Mean Platelet Volume 10.2 7.5-10.5 fL Immature Granulocyte % (Auto) 0.3 0-1 % Neutrophils (%) (Auto) 77.3 H 40.0-77.0 % Lymphocytes (%) (Auto) 15.3 L 21.0-51.0 % Monocytes (%) (Auto) 6.5 3.0-13.0 % Eosinophils (%) (Auto) 0.3 0.0-8.0 % Basophils (%) (Auto) 0.3 0.0-5.0 % Neutrophils # (Auto) 4.5 1.8-7.7 K/uL Lymphocytes # (Auto) 0.9 L 1.0-4.8 K/uL Monocytes # (Auto) 0.4 0.1-1.0 K/uL Eosinophils # (Auto) 0.02 0.00-0.70 K/uL Basophils # (Auto) 0.02 0.00-0.20 K/uL Absolute Immature Granulocyte (auto 0.02 0-1 K/uL Nucleated Red Blood Cells 0.0 0.0-0.19 % Chemistry Labs: Test 07/16/24 17:10 07/16/24 03:44 07/15/24 03:38 Range/Units Whole Blood Glucose 73 70-110 MG/DL Sodium Level 140 136-145 mmol/L Potassium Level 3.1 L 3.5-5.1 mmol/L Chloride Level 109 101-111 mmol/L Carbon Dioxide Level 27 21-32 mmol/L Blood Urea Nitrogen 11 7-18 mg/dL Creatinine 0.3 L 0.5-1.0 mg/dL Glomerular Filtration Rate Calc 116 >90 mL/min Random Glucose 146 H 70-105 mg/dL Total Calcium 7.2 L 8.5-10.1 mg/dL Magnesium Level 2.10 1.80-2.40 mg/dL Total Bilirubin 0.2 0.2-1.0 mg/dL Aspartate Amino Transf (AST/SGOT) 20 10-37 U/L Alanine Aminotransferase (ALT/SGPT) 12 12-78 U/L Alkaline Phosphatase 56 50-136 U/L Total Protein 4.1 L 6.0-8.3 g/dL Albumin 1.0 L 3.5-5.0 g/dL Vitamin D 25-Hydroxy 76.1 30.0-100.0 ng/mL DIAGNOSTICS / RADIOLOGY RESULTS: [ ] PLAN planned gtube placement for today. continue TPN until ok to use gtube, continue iv abx with meropenem. Pending sputum culture, order procalcitonin Consider initiating lasix and spironolactone once able to tolerate oral diet Conservative management and monitoring of pleural effusion GI for management of esophageal stricture Disposition per primary 07/16/2024: For now, going to continue current management for the patient. We are going to follow the recommendation of the treating specialist. The patient will continue antibiotic therapy as ordered. We will repeat surveillance labs in the morning. We will continue replacing the electrolyte deficit per the protocol. We will continue to provide general supportive care, GI and DVT prophylaxis. Further orders per attending MD and hospital course. NEURO: Minimize central acting medications as possible. Maintain fall precautions, adequate lighting during the day PULMONARY: Supplemental 02 as needed. Maintain aspiration precautions at all times CARDIOVASCULAR: Follow hemodynamics. Vital signs per facility protocol GI & NUTRITION: Continue with nutritional support. Continue stool softeners and laxatives as needed. KIDNEYS & ELECTROLYTES: Strict monitoring of intake, output and overall fluid balance. Avoid nephrotoxic medications to the extent possible. Medications to be dosed according to renal function. Monitor electrolytes and replace as needed ENDOCRINE: Maintain blood glucose between 100-180 at all times. Hypoglycemia protocol in place INFECTIOUS DISEASE: Trend temperature, WBC and procalcitonin level Follow cultures, deescalate antibiotics as soon as possible. Panculture if new onset fever ONCOLOGY/HEMATOLOGY/COAGULATION: Monitor for s/s of bleeding Monitor hemoglobin, coagulation studies as needed SKIN: Pressure ulcer prevention per facility protocol Specialty mattress ORTHO/REHAB: Continue PT/OT Prophylaxis: Continue GI and DVT prophylaxis Code Status: Full Resuscitation Disposition: sunny pending acceptance Other: Total patient care time exceeds 35 minutes excluding all procedures. VALDEMAR PATEL NP Jul 16, 2024 18:34
[2024-07-16] MEDS: DEXTROSE 50%-WATER 50 ML DISP.SYRIN IV PRN (20:07)
[2024-07-17] VITALS (10 sets, daily range): BP systolic 108–144; BP diastolic 66–94; PULSE 77–99; RESP 17–22; TEMP 96.9–98.8; O2SAT 99–100
[2024-07-17 03:44] LABS: BASOPHILS # (AUTO) 0.03 K/uL (0.00-0.20); BASOPHILS % (AUTO) 0.6 % (0.0-5.0); EOSINOPHILS # (AUTO) 0.11 K/uL (0.00-0.70); EOSINOPHILS % (AUTO) 2.1 % (0.0-8.0); HEMATOCRIT 29.2 % (36-48); IMMATURE GRANULOCYTE ABSOLUTE 0.03 K/uL (0-1); LYMPHOCYTES % (AUTO) 18.6 % (21.0-51.0); MEAN CORPUSCULAR HEMOGLOBIN 31.9 pg (27.0-33.0); MEAN CORPUSCULAR HGB CONC 31.2 g/dL (32.0-36.0); MEAN CORPUSCULAR VOLUME 102.5 fL (79-99); MONOCYTES # (AUTO) 0.5 K/uL (0.1-1.0); MONOCYTES % (AUTO) 10.4 % (3.0-13.0); NEUTROPHILS # (AUTO) 3.5 K/uL (1.8-7.7); NEUTROPHILS % (AUTO) 67.7 % (40.0-77.0); PLATELET COUNT (AUTO) 206 K/uL (130-400); RED BLOOD CELL COUNT(AUTO) 2.85 MIL/uL (4.00-5.50); RED CELL DISTRIBUTION WIDTH 18.3 % (11.0-15.5); WHITE BLOOD COUNT (AUTO) 5.2 K/uL (4.8-10.8)
[2024-07-17 03:52] LABS: CREATININE 0.3 mg/dL (0.5-1.0); POTASSIUM 3.7 mmol/L (3.5-5.1)
[2024-07-17] MEDS: BACITRACIN 28.4 GM OINT TP SCH (09:23)
--- NOTE | 2024-07-17 10:57 | PN ---
[facility] PROGRESS NOTE Date Patient Seen: Jul 17, 2024 Time of Visit: 10:55 Supervising Physician: Dr. Torres Primary Care Physician: [CATALYST] Outpatient Specialists: [ ] Inpatient Consults: [BIS] PROBLEM LIST: Esophageal tear s/p EGD and stent placement. 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 She is in no apparent distress. She is currently recieving TPN via PICC line. She is s/p EGD with esophageal stent placement by Dr Monroy yesterday . She is pending Gtube placement today per DR Armendariz. She denies any pain or shortness of breath. She reports no nausea or vomiting. She is more alert than previous days and reports she is feeling well. not at bedside today. Labs unremarkable. Electrolytes to be replaced per protocols. 07/16/2024: At the time of my evaluation, the patient was lying in bed. Patient had no new complaint. Vital signs today were stable. Laboratory data today notable for low H&H 8.9/28.5 and a platelet count of 205. Chemistry panel was notable for a potassium of 3.1. CT imaging of the chest and abdomen showed free intraperitoneal air with small amount of ascites. Contrast was seen within the stomach without diffuse extravasation, this raised concern for bowel perforation. The patient continues on antibiotic therapy with IV Merrem and is so far tolerating well. The staff nurse reports no acute events otherwise. No other complaint. 07/27/2024: At the time of my evaluation, the patient was lying in bed. The staff nurse reports no acute events overnight. Vital signs obtained are generally stable. Laboratory data today showed improved H&H 9.1/29.2 and a platelet count of 206. Chemistry panel was a generally stable. No new imaging for review today. CT abdomen obtained yesterday, showed free intraperitoneal air with small amount of ascites. Contrast was seen within the stomach without diffuse extravasation. Findings are suspicious for bowel perforation and clinical correlation is recommended. Surgical consultation is recommended. No other complaint. REVIEW OF SYSTEMS: 12 point ROS reviewed with patient. Pertinent positives mentioned above. Otherwise negative. PHYSICAL EXAM: GENERAL: alert, weak, awake oriented x 3, moderate to severe scoliosis HEENT: EOMI, Sclera non icteric, moist mucosa NECK: Supple, no JVD, trachea midline LUNGS: Clear breath sounds bilaterally. No wheezes HEART: Regular rate and rhythm. Normal S1 and S2, without murmurs ABD: Abdomen soft, nontender. Bowel sounds present EXT: No clubbing cyanosis or edema NEURO: Alert and oriented to person, follows commands Vital Signs (last 8hr) Date Time Temp Pulse Resp B/P (MAP) Pulse Ox O2 Delivery O2 Flow Rate FiO2 07/17/24 07:41 98.2 83 18 144/78 100 07/17/24 07:16 99 20 N/Cannula Low lpm 2.0 07/17/24 07:00 100 Room Air* 0 21 07/17/24 04:00 98.2 83 22 135/83 100 Nasal Cannula 2.0 LABS: Hematology Labs: Test 07/17/24 03:28 Range/Units White Blood Count 5.2 4.8-10.8 K/uL Red Blood Count 2.85 L 4.00-5.50 MIL/uL Hemoglobin 9.1 L 12.0-16.0 g/dL Hematocrit 29.2 L 36-48 % Mean Corpuscular Volume 102.5 H 79-99 fL Mean Corpuscular Hemoglobin 31.9 27.0-33.0 pg Mean Corpuscular Hemoglobin Concent 31.2 L 32.0-36.0 g/dL Red Cell Distribution Width 18.3 H 11.0-15.5 % Platelet Count 206 130-400 K/uL Mean Platelet Volume 10.5 7.5-10.5 fL Immature Granulocyte % (Auto) 0.6 0-1 % Neutrophils (%) (Auto) 67.7 40.0-77.0 % Lymphocytes (%) (Auto) 18.6 L 21.0-51.0 % Monocytes (%) (Auto) 10.4 3.0-13.0 % Eosinophils (%) (Auto) 2.1 0.0-8.0 % Basophils (%) (Auto) 0.6 0.0-5.0 % Neutrophils # (Auto) 3.5 1.8-7.7 K/uL Lymphocytes # (Auto) 1.0 1.0-4.8 K/uL Monocytes # (Auto) 0.5 0.1-1.0 K/uL Eosinophils # (Auto) 0.11 0.00-0.70 K/uL Basophils # (Auto) 0.03 0.00-0.20 K/uL Absolute Immature Granulocyte (auto 0.03 0-1 K/uL Nucleated Red Blood Cells 0.0 0.0-0.19 % Chemistry Labs: Test 07/17/24 05:28 07/17/24 03:28 07/16/24 19:41 07/16/24 03:44 Range/Units Whole Blood Glucose 73 70-110 MG/DL Sodium Level 144 136-145 mmol/L Potassium Level 3.7 3.5-5.1 mmol/L Chloride Level 112 H 101-111 mmol/L Carbon Dioxide Level 27 21-32 mmol/L Blood Urea Nitrogen 12 7-18 mg/dL Creatinine 0.3 L 0.5-1.0 mg/dL Glomerular Filtration Rate Calc 116 >90 mL/min Random Glucose 91 70-105 mg/dL Total Calcium 7.4 L 8.5-10.1 mg/dL Bedside Glucose Comment Notified Nurse Magnesium Level 2.10 1.80-2.40 mg/dL Total Bilirubin 0.2 0.2-1.0 mg/dL Aspartate Amino Transf (AST/SGOT) 20 10-37 U/L Alanine Aminotransferase (ALT/SGPT) 12 12-78 U/L Alkaline Phosphatase 56 50-136 U/L Total Protein 4.1 L 6.0-8.3 g/dL Albumin 1.0 L 3.5-5.0 g/dL DIAGNOSTICS / RADIOLOGY RESULTS: [ ] PLAN planned gtube placement for today. continue TPN until ok to use gtube, continue iv abx with meropenem. Pending sputum culture, order procalcitonin Consider initiating lasix and spironolactone once able to tolerate oral diet Conservative management and monitoring of pleural effusion GI for management of esophageal stricture Disposition per primary 07/16/2024: For now, going to continue current management for the patient. We are going to follow the recommendation of the treating specialist. The patient will continue antibiotic therapy as ordered. We will repeat surveillance labs in the morning. We will continue replacing the electrolyte deficit per the protocol. We will continue to provide general supportive care, GI and DVT prophylaxis. Further orders per attending MD and hospital course. 07/27/2024: For now, going to continue current management for the patient. We will discontinue the enteral feedings and we will probably switch the patient back to TPN. We will follow the recommendation of the primary team. Based on the patient's current condition she may benefit from palliative /hospice care. We will need to discuss the the goals of end of life care with rental representative libertarian. We will monitor the patient's progress and response to management. Follow recommendation of treating specialist. Further orders per attending MD and hospital course. NEURO: Minimize central acting medications as possible. Maintain fall precautions, adequate lighting during the day PULMONARY: Supplemental 02 as needed. Maintain aspiration precautions at all times CARDIOVASCULAR: Follow hemodynamics. Vital signs per facility protocol GI & NUTRITION: Continue with nutritional support. Continue stool softeners and laxatives as needed. KIDNEYS & ELECTROLYTES: Strict monitoring of intake, output and overall fluid balance. Avoid nephrotoxic medications to the extent possible. Medications to be dosed according to renal function. Monitor electrolytes and replace as needed ENDOCRINE: Maintain blood glucose between 100-180 at all times. Hypoglycemia protocol in place INFECTIOUS DISEASE: Trend temperature, WBC and procalcitonin level Follow cultures, deescalate antibiotics as soon as possible. Panculture if new onset fever ONCOLOGY/HEMATOLOGY/COAGULATION: Monitor for s/s of bleeding Monitor hemoglobin, coagulation studies as needed SKIN: Pressure ulcer prevention per facility protocol Specialty mattress ORTHO/REHAB: Continue PT/OT Prophylaxis: Continue GI and DVT prophylaxis Code Status: Full Resuscitation Disposition: [facility] pending acceptance Other: Total patient care time exceeds 35 minutes excluding all procedures. VALDEMAR PATEL [employer] Jul 17, 2024 10:57
--- NOTE | 2024-07-17 11:52 | PN ---
[facility] PROGRESS NOTE Date of Service: Jul 17, 2024 Time of Service: 11:49 69-year-old female admitted with multifocal pneumonia and pleural effusion SUBJECTIVE: [ Hospital day 1. For 69-year-old female admitted with multifocal pneumonia and pericardial effusion. On further history with the patient as well as her spouse who is my patient at the [facility]. Patient has had problems with chronic esophageal and sounds like gastric strictures for the past six months. Patient has been seeing Dr. Ki Medina gastrointestinal specialist and Dr. Philip at the same group and has had multiple dilations including balloon dilation on about four or five occasions. Patient's weight has gone down from about just under 200 lb to less than 100 lb but she has recently gained about 27 lb back per her spouse. Patient has been in and out of the [facility] for rehab and [facility]. She had a complication and in esophageal tear that was a complication from too much pressure with a balloon dilator. I asked her if she bled significantly as she is on blood thinners but he has had no. Otherwise the patient states that she has had about a week's worth of a productive cough with brown phlegm no fevers or chills. Patient had a fall approximately six months ago in which a lot of her problems started. She has essentially been nonambulatory since this fall. Although when she was at the long term they did set her up and do gentle [id number] exercises and even short ambulation with the assistance patient has been bed- bound essentially. She had significant swelling to most of her body and was told this was from malnutrition that has been slowly improving over the last few weeks now that she is able to take by mouth. She has complicating factors in the sense that she fell and destroyed her implants and upper anchor for her dentures and so has had to have pureed food only 07/11/2024: No significant interval events reported by nursing staff. Patient reports no pain or shortness for breath. Her morning labs were reviewed 07/12/24 patient was seen by nurse practitioner and physician during rounding in room 230. Patient was comfortably lying in bed. Urine culture final negative. Blood culture 48 hours negative so far. Patient was evaluated by rail car welder and was cleared for EGD. Patient was evaluated by Dr. Moon and EGD was performed, which showed benign appearing esophageal stenosis. And nonbleeding perforation was found in the esophagus. Afterwards we found out that patient belongs to Dr. Monroy so the care was change to other group of GI. Patient is pending possible esophagram was evaluated by other GI group. CT chest/abdomen showed aspiration pneumonia small pericardial effusion, small abdominal ascites and anasarca. 2D echo EF 60 65% stage I diastolic dysfunction large left pleural effusion. As per GI patient is not a candidate for PEG tube due to history of a bypass. Patient has bilateral lower extremity swelling we will order 20 mg of Lasix IV one dose only. We will do CBC, CMP and magnesium stat, as well we will repeat morning labs. Patient came from [facility] per family member at the bedside would like to return done once patient medically cleared. We will continue to monitor patient in the meantime. A.m. labs 07/13 patient was seen by nurse practitioner and physician during rounding in room 230. No family member at the bedside at this moment. Patient was evaluated by the water pollution control inspector and per chest x-ray no pneumothorax is visible. No chest needed at this moment. As per GI patient is pending esophagram with possible stent placement on Friday07/14/2024. Patient will receive 60 mEq of potassium in total for potassium of 2.6. Patient will also receive 2 g of magnesium for magnesium 1.6 today in a.m.. Today albumin is 1.0 patient will receive albumin as well. PT working with the patient. Final urine culture negative. Blood culture-48 hours. We will continue to monitor patient in the meantime. A.m. labs. 07/14 patient was seen by nurse practitioner and physician during rounding. Family member at the bedside was informed regards to further plan. Patient is pending esophagram with stent placement today. Once cleared the patient will be able to eat patient to be discharged to [facility]. Magnesium today 1.7 patient will receive 2 g of magnesium. We are pending morning lab results. RN instructed to cover potassium if low per protocol. We will continue to monitor patient in the meantime. A.m. labs. 07/15 patient was seen by nurse practitioner physician during rounding in room 210. Patient is s/p EGD with stent placement yesterday 07/14/[address] Monroy. Today patient is pending PEG tube placement. Nurse practitioner was able to talk to Toshia Reyes MANAGER [employer]AIL [employer]ORE with GI group at 8:47 a.m. and after PEG tube placement . Patient's potassium today is 4.5. Albumin 1.0. Patient will receive 2 mg of albumin. Magnesium 1.6 patient received 2 g of magnesium. We will also repeat CBC due to drop of hemoglobin. Blood culture negative x5 days. Urine growing Pseudomonas aeruginosa PICC line placed for IV antibiotics. Patient will need Merrem for one week after discharge. We will continue to monitor patient in the meantime. A.m. labs.] 07/17 patient is seen and examined at bedside, no acute events overnight per discussion with the nurse taking care of the patient. Patient is status post PEG tube placement. CT chest and abdomen done yesterday there is free intraperitoneal air with small amount of ascites, contrast is seen within the stomach without diffuse extravasation, findings are suspicious for bowel perforation. Surgical consultation is recommended. Currently the patient is NPO, peg tube feeding has not been started. We will resume Clinimix. REVIEW OF SYSTEMS CONSTITUTIONAL: Denies fevers, chills, or night sweats. wt loss as described above of about 80lbs in 6 months NEUROLOGICAL: no n/t, no hx of strokes ENT: No hearing loss, otalgia, otorrhea, rhinitis, rhinorrhea, or sore throat.+very raspy voices CARDIOVASCULAR: Denies any exertional angina, dyspnea on exertion, orthopnea, paroxysmal nocturnal dyspnea, palpitations, life-threatening arrhythmias, claudication. GASTROINTESTINAL: See history of present illness, + esophageal stenosis and dysphagia for six months. Positive nausea and intermittent vomiting, regular bowel movements no diarrhea no bloody stools GENITOURINARY: Denies increased frequency, no urgency or pain with urination. Patient states he is continent to both bowel and bladder. ENDOCRINOLOGIC: Denies polyuria, polydipsia, polyphagia or heat/cold intolerances. HEMATOLOGIC: Patient did have a clot in her upper extremity a few months back. That resolved on its own per the patient's spouse, Cedrick. ONCOLOGIC: Denies personal history of malignancy. DERMATOLOGIC: Easy bruisability with multiple ecchymotic areas to the neck. PSYCHIATRIC: Denies any suicidal or homicidal ideation. Denies hallucinations. Positive depressive symptomatology because of health decline with the last six months. PHYSICAL EXAM GENERAL APPEARANCE: The patient is awake, alert, and oriented, in no acute cardiopulmonary distress. Very cachectic appearing 69-year-old female appearing much older than stated age NEUROLOGICAL: Cranial nerves II-XII grossly intact. Motor is 4+/5 in bilateral upper and lower extremities proximal to distal. No sensory deficits. HEENT: Face is symmetric. Pupils are equal and reactive. Extraocular movements are intact. TMs are pearly riley and external auditory canals are without inflammation. NECK: Supple. No JVD. No thyromegaly. No submental, submandibular, pre- /postauricular, occipital or supraclavicular lymphadenopathy. CHEST: Normal chest expansion. LUNGS: Bilateral rhonchi noted to the mid and lower lung adams, no wheezes or rales noted. CARDIOVASCULAR: Regular. S1 and S2 normal. No appreciable rubs, murmurs or gallops. ABDOMEN: Soft, nontender, and nondistended. There is no rebound, voluntary guarding, or rigidity. : Deferred. No Manuel. EXTREMITIES: Non-edematous and not cyanotic. No clubbing. Good capillary refill. Dorsalis pedis pulse present to the right foot left foot dorsalis pedis very slightly palpable but cap refill brisk posterior tibial pulses felt x2 SKIN: No skin breakdown. Vital Signs (last 8hr) Date Time Temp Pulse Resp B/P (MAP) Pulse Ox O2 Delivery O2 Flow Rate FiO2 07/17/24 07:41 98.2 83 18 144/78 100 07/17/24 07:16 99 20 N/Cannula Low lpm 2.0 07/17/24 07:00 100 Room Air* 0 21 07/17/24 04:00 98.2 83 22 135/83 100 Nasal Cannula 2.0 LABS: Laboratory: Test 07/17/24 11:05 07/17/24 03:28 07/16/24 19:41 07/16/24 03:44 Range/Units Whole Blood Glucose 83 70-110 MG/DL White Blood Count 5.2 4.8-10.8 K/uL Red Blood Count 2.85 L 4.00-5.50 MIL/uL Hemoglobin 9.1 L 12.0-16.0 g/dL Hematocrit 29.2 L 36-48 % Mean Corpuscular Volume 102.5 H 79-99 fL Mean Corpuscular Hemoglobin 31.9 27.0-33.0 pg Mean Corpuscular Hemoglobin Concent 31.2 L 32.0-36.0 g/dL Red Cell Distribution Width 18.3 H 11.0-15.5 % Platelet Count 206 130-400 K/uL Mean Platelet Volume 10.5 7.5-10.5 fL Immature Granulocyte % (Auto) 0.6 0-1 % Neutrophils (%) (Auto) 67.7 40.0-77.0 % Lymphocytes (%) (Auto) 18.6 L 21.0-51.0 % Monocytes (%) (Auto) 10.4 3.0-13.0 % Eosinophils (%) (Auto) 2.1 0.0-8.0 % Basophils (%) (Auto) 0.6 0.0-5.0 % Neutrophils # (Auto) 3.5 1.8-7.7 K/uL Lymphocytes # (Auto) 1.0 1.0-4.8 K/uL Monocytes # (Auto) 0.5 0.1-1.0 K/uL Eosinophils # (Auto) 0.11 0.00-0.70 K/uL Basophils # (Auto) 0.03 0.00-0.20 K/uL Absolute Immature Granulocyte (auto 0.03 0-1 K/uL Nucleated Red Blood Cells 0.0 0.0-0.19 % Sodium Level 144 136-145 mmol/L Potassium Level 3.7 3.5-5.1 mmol/L Chloride Level 112 H 101-111 mmol/L Carbon Dioxide Level 27 21-32 mmol/L Blood Urea Nitrogen 12 7-18 mg/dL Creatinine 0.3 L 0.5-1.0 mg/dL Glomerular Filtration Rate Calc 116 >90 mL/min Random Glucose 91 70-105 mg/dL Total Calcium 7.4 L 8.5-10.1 mg/dL Bedside Glucose Comment Notified Nurse Magnesium Level 2.10 1.80-2.40 mg/dL Total Bilirubin 0.2 0.2-1.0 mg/dL Aspartate Amino Transf (AST/SGOT) 20 10-37 U/L Alanine Aminotransferase (ALT/SGPT) 12 12-78 U/L Alkaline Phosphatase 56 50-136 U/L Total Protein 4.1 L 6.0-8.3 g/dL Albumin 1.0 L 3.5-5.0 g/dL Current Medications Medications (Trade) Dose Ordered Sig/Jennifer Route PRN Reason Start Time Stop Time Status Last Admin Dose Admin Acetaminophen (TYLenol 650MG SUPPOSITORY) 650 mg Q6H PRN RC MILD PAIN (1-3) 07/09/24 19:30 08/08/24 19:29 Albumin Human 50 ml @ 0 mls/hr AD IV 07/13/24 07:30 07/13/24 07:17 DC Albumin Human 100 ml @ 0 mls/hr AD IV 07/15/24 08:30 07/16/24 08:29 DC Albuterol (DUOneb) 1 UDVIAL [id number] IH 07/10/24 00:00 08/09/24 00:00 07/16/24 13:13 1 UDVIAL Bacitracin (Bacitracin 28.4gm) apply to left calf and l... DAILY TP 07/17/24 09:00 08/16/24 08:59 07/17/24 09:23 28.4 GM Bisacodyl (DulcoLAX 5MG TAB) 5 mg AM PO 07/12/24 09:00 08/11/24 08:59 07/17/24 09:21 5 MG Ceftazidime (ForTAZ/TAZidime) 2 gm Q8H IVPB 07/13/24 15:00 07/13/24 15:06 DC Ceftriaxone Sodium (ROCEphine 1G INJ) 1 gm ONCE IVPB 07/09/24 19:19 07/09/24 23:59 DC 07/09/24 19:19 1 GM Dextrose (D50w) 50 ml AD PRN IV HYPOGLYCEMIA PROTOCOL 07/15/24 14:30 07/16/24 11:38 DC Dextrose (D50w) 50 ml AD PRN IV HYPOGLYCEMIA PROTOCOL 07/16/24 12:00 08/15/24 11:59 07/16/24 20:07 50 ML Dextrose (D50w) 50 ml AD PRN IV HYPOGLYCEMIA PROTOCOL 07/13/24 06:00 07/15/24 14:09 DC 07/14/24 11:32 50 ML Dextrose (D50w) 50 ml AD PRN IV HYPOGLYCEMIA PROTOCOL 07/13/24 06:30 07/13/24 06:11 DC Dextrose/Lactated Ringer's 1,000 ml @ 50 mls/hr Q20H IV 07/11/24 20:00 08/10/24 19:59 07/16/24 21:56 50 MLS/HR Doxycycline Hyclate 250 ml @ 125 mls/hr Q12H IV 07/12/24 05:00 07/14/24 08:05 DC 07/14/24 05:12 125 MLS/HR Enoxaparin Sodium (Lovenox) 40 mg DAILY SQ 07/10/24 09:00 07/10/24 19:01 DC 07/10/24 10:15 40 MG Ergocalciferol (Drisdol) 1,250 unit AM PO 07/12/24 09:00 07/12/24 07:47 DC Famotidine (Pepcid 20mg Vial) 20 mg DAILY IV 07/10/24 09:00 07/12/24 07:38 DC 07/11/24 09:00 20 MG Fludrocortisone Acetate (Fludrocortisone Acetate) 0.1 mg DAILY PO 07/12/24 09:00 08/11/24 08:59 07/17/24 09:22 0.1 MG Furosemide (LASix 20MG TAB) 20 mg DAILY PO 07/12/24 09:00 07/12/24 04:49 DC Glucagon (Glucagon 1mg Kit) 1 mg AD PRN IM HYPOGLYCEMIA PROTOCOL 07/15/24 14:30 07/16/24 11:38 DC Glucagon (Glucagon 1mg Kit) 1 mg AD PRN IM HYPOGLYCEMIA PROTOCOL 07/16/24 12:00 08/15/24 11:59 Glucagon (Glucagon 1mg Kit) 1 mg AD PRN IM HYPOGLYCEMIA PROTOCOL 07/13/24 06:00 07/15/24 14:09 DC Glucagon (Glucagon 1mg Kit) 1 mg AD PRN IM HYPOGLYCEMIA PROTOCOL 07/13/24 06:30 07/13/24 06:11 DC Home Med (Home Medication) (Folic Acid 1 CAP) DAILY PO 07/12/24 09:00 08/11/24 08:59 Home Med (Home Medication) ([Azasan] 50 MG) AM PO 07/12/24 09:00 08/11/24 08:59 Hydralazine HCl (APRESOLine 20MG INJ) 10 mg Q6H PRN IV For:SBP above 160;DBP above 90 07/09/24 19:30 08/08/24 19:29 Insulin Human Regular (humuLIN R 100 UNIT/ML 3ML) INSULIN SLIDING SCAL... ACHS SQ 07/15/24 16:30 07/16/24 11:38 DC Insulin Human Regular (humuLIN R 100 UNIT/ML 3ML) INSULIN SLIDING SCAL... ACHS SQ 07/16/24 16:30 08/15/24 16:29 Lactated Ringer's 1,000 ml @ 75 mls/hr [id number] IV 07/09/24 19:30 07/11/24 19:49 DC 07/10/24 21:39 75 MLS/HR Levothyroxine Sodium (SYNTHroid 50MCG TAB) 50 mcg SYN PO 07/13/24 06:30 08/12/24 06:29 07/17/24 06:03 50 MCG Loratadine (LORATAdine 10 mg) 10 mg DAILY PO 07/12/24 09:00 08/11/24 08:59 07/17/24 09:21 10 MG Magnesium Sulfate 50 ml @ 0 mls/hr PROTOCOL IV 07/13/24 07:30 07/13/24 07:14 DC Magnesium Sulfate 50 ml @ 0 mls/hr PROTOCOL PRN IV other 07/15/24 14:30 07/16/24 11:40 DC Magnesium Sulfate 50 ml @ 0 mls/hr PROTOCOL PRN IV other 07/16/24 12:00 08/15/24 11:59 Magnesium Sulfate 50 ml @ 0 mls/hr PROTOCOL PRN IV MAGNESIUM PROTOCOL 07/13/24 06:00 07/15/24 14:07 DC 07/15/24 06:07 25 MLS/HR Meropenem (Merrem 1gm) 1 gm Q8H IVPB 07/13/24 16:00 07/14/24 16:54 DC 07/14/24 11:32 1 GM Meropenem (Merrem 1gm) 1 gm Q8H IVPB 07/14/24 20:00 07/24/24 19:59 07/17/24 06:03 1 GM Metronidazole/ Sodium Chloride 100 ml @ 100 mls/hr Q8H6 IVPB 07/13/24 22:00 07/13/24 15:06 DC Midodrine (PROAMatine 5 MG TABLET) 5 mg TID PO 07/12/24 09:00 08/11/24 08:59 07/17/24 09:22 5 MG Miscellaneous Medication (Esomeprazole Magnesium ) 1 cap DAILY PO 07/12/24 09:00 07/12/24 07:38 DC Miscellaneous Medication (Famotidine ) 1 tab DAILY PO 07/12/24 09:00 07/12/24 07:38 DC Miscellaneous Medication (Ondansetron HCl ) 1 tab TID PO 07/12/24 09:00 07/12/24 07:47 DC Miscellaneous Medication (Sertraline HCl ) 1 tab DAILY PO 07/12/24 09:00 07/12/24 07:41 DC Montelukast Sodium (SinguLAIR) 10 mg DAILY PO 07/12/24 09:00 08/11/24 08:59 07/17/24 09:21 10 MG Morphine Sulfate (morPHINE 2MG SYG) 2 mg Q4H PRN IVP SEVERE PAIN (7-10) 07/16/24 05:30 07/23/24 05:29 07/16/24 17:54 2 MG Morphine Sulfate (morPHINE 2MG SYG) 2 mg Q4H PRN IVP SEVERE PAIN (7-10) 07/10/24 19:30 07/15/24 22:29 DC 07/13/24 21:13 2 MG Morphine Sulfate (morPHINE 4MG SYG) 2 mg Q4H PRN IVP SEVERE PAIN (7-10) 07/09/24 19:30 07/10/24 19:01 DC Ondansetron HCl (zoFRAN 4MG INJ) 4 mg Q6H PRN IV NAUSEA/VOMITING 07/09/24 19:30 08/08/24 19:29 Pantoprazole Sodium (PROTonix 40MG INJ) 40 mg BID IVP 07/14/24 21:00 08/13/24 20:59 07/16/24 21:57 40 MG Pantoprazole Sodium (PROTonix 40MG INJ) 40 mg DAILY IVP 07/14/24 09:00 07/15/24 07:56 DC 07/14/24 11:38 40 MG Pantoprazole Sodium (PROTonix 40MG TAB) 40 mg DAILY PO 07/12/24 09:00 07/14/24 08:39 DC Piperacillin Sod/ Tazobactam Sod (Zosyn 3.375gm+NS 50ml) 3.375 gm Q12H IV 07/12/24 05:00 07/12/24 04:51 DC Piperacillin Sod/ Tazobactam Sod (Zosyn 3.375gm+NS 50ml) 3.375 gm ZOSY8 IV 07/09/24 21:00 07/13/24 14:39 DC 07/13/24 12:51 3.375 GM Potassium Chloride 100 ml @ 50 mls/hr AD PRN IV POTASSIUM PROTOCOL 07/13/24 06:30 07/15/24 14:07 DC 07/15/24 04:59 50 MLS/HR Potassium Chloride 100 ml @ 50 mls/hr PROTOCOL IV 07/15/24 08:30 07/15/24 08:27 DC Potassium Chloride 100 ml @ 50 mls/hr PROTOCOL IV 07/16/24 09:30 08/15/24 09:29 Potassium Chloride 100 ml @ 50 mls/hr PROTOCOL IV 07/13/24 07:30 07/13/24 07:14 DC Potassium Chloride 100 ml @ 50 mls/hr PROTOCOL IV 07/13/24 11:00 07/13/24 07:14 DC Potassium Chloride 100 ml @ 50 mls/hr PROTOCOL IV 07/13/24 16:00 07/13/24 07:14 DC Potassium Chloride 100 ml @ 100 mls/hr AD PRN IV POTASSIUM PROTOCOL 07/15/24 14:30 07/16/24 09:18 DC 07/16/24 04:42 100 MLS/HR Potassium Chloride 100 ml @ 100 mls/hr AD PRN IV POTASSIUM PROTOCOL 07/16/24 09:30 08/15/24 09:29 Potassium Chloride (K-Dur/Klor-Con 20meq) 10 meq AD PRN PO POTASSIUM PROTOCOL 07/15/24 14:30 07/16/24 11:38 DC Potassium Chloride (KCl 10% Elixir 20meq/15ml) 10 meq AD PRN PO POTASSIUM PROTOCOL 07/15/24 14:30 07/16/24 11:38 DC Quetiapine Fumarate (SEROquel 25 mg TAB) 50 mg HS PO 07/12/24 21:00 08/11/24 20:59 07/16/24 21:56 50 MG Sertraline HCl (ZOloft 50 mg tab) 150 mg DAILY PO 07/11/24 09:00 08/10/24 08:59 07/17/24 09:22 150 MG Simvastatin (zoCOR) 20 mg HS PO 07/12/24 21:00 08/11/24 20:59 07/16/24 21:57 20 MG Sodium Chloride 1,000 ml @ 500 mls/hr Q2H IV 07/09/24 17:34 07/10/24 01:15 DC 07/09/24 19:34 500 MLS/HR Spironolactone (Aldactone 25mg) 25 mg DAILY PO 07/12/24 09:00 07/12/24 04:49 DC Sucralfate (Carafate) 1 gm TID PO 07/12/24 09:00 08/11/24 08:59 07/17/24 09:21 1 GM Vitamin B Complex (Vitamin B-12) 1,000 mcg DAILY PO 07/12/24 09:00 08/11/24 08:59 07/17/24 09:21 1,000 MCG DIAGNOSTICS / RADIOLOGY: [ ] ASSESSMENT: [1. Left upper and lower lobe aspiration pneumonia POA 2 small pericardial effusion per 2D echo POA 3. Uncontrolled Hypertension POA 4. Hyperlipidemia POA 5. History of anasarca POA 6. Severe protein calorie malnutrition POA 7. Bed-bound x6 months POA 8. Depression likely adjustment reaction to severe health decline over the last six months POA 9. Leukopenia POA 10. History of orthostatic hypotension POA 11. Esophageal stricture history 12. S/p EGD with stent placement 07/14/2024 s/p PEG tube placement 07/15/24 s/p stent removal due to displacement 07/16/2024 13. hypothyroidism POA 14. Macrocytic anemia, POA 15. B12 deficiency on oral replacement POA Perforation of esophagus per CT abdomen/pelvis POA Esophageal dysfunction per CT abdomen/chest POA Acute on chronic diastolic heart failure 2D echo EF 60 65% stage I diastolic dysfunction Acute complicated cystitis POA Pseudomonas aeruginosa urine culture ] Possible perforated bowel PLAN: The patient remains admitted to the PCU Continue the patient on traffic monitor specialist Hold feeding through the PEG tube until evaluated by General surgery, we will follow input and recommendation. Continue to follow GI input and recommendation. NEURO: Minimize central acting medications as possible. Fall Precautions. Well lighted room through the day and minimize interruptions through the night to prevent acute delirium. PULMONARY: Supplemental 02 as needed BiPAP as necessary, for respiratory distress Titrate Fio2 to keep Spo2 > or = 90% DuoNebs and CPT as needed IS hourly while awake for pulmonary hygiene prn Out of bed to chair as tolerated Maintain aspiration precautions at all times CARDIOVASCULAR: Follow hemodynamics. Vital signs per facility protocol GI & NUTRITION: Continue nutritional support Aspirations precautions Prokinetic agents and laxatives as needed KIDNEYS & ELECTROLYTES: Strict monitoring of intake and output Daily weights Avoid nephrotoxic agents Monitor electrolytes and replace as needed Goal urine output of 30mL/hr or 0.5mL/kg/hr Medications to be dosed according to renal function. Avoid contrast if possible ENDOCRINE: Maintain blood glucose between 100-180 at all times. Insulin sliding scale for blood glucose management Hypoglycemia and hyperglycemia protocol in place INFECTIOUS DISEASE: Trend temperature, WBC and procalcitonin level Follow cultures, deescalate antibiotics as soon as possible. Panculture if new onset fever HEMATOLOGY & COAGULATION: Monitor H&H. Keep Hgb > 7 Transfuse 1 unit of PRBC for Hgb < 7 Transfuse 1 pack of platelets of platelets < 20, 000 Watch for any signs and symptoms of bleeding SKIN: Pressure ulcer prevention per facility protocol Specialty mattress as needed ORTHO/REHAB Continue PT/OT PRN: MEDICATIONS Tylenol 650 mg po every 4 hrs for fever zofran 4 mg IV every 6 hrs for n/v Hydralazine 5 mg IV every 4 hrs systolic pressure > 160 bowel regiment: lactulose 20 gm PO BID PRN constipation Supportive measures: Continue GI and DVT prophylaxis Disposition: Pending Improvement in clinical condition All questions answered time spent: > 35 min LELE GALEANO MD Jul 17, 2024 11:52
[2024-07-17] MEDS: M.V.I. IV [ADULT] 10 ML, MULTITRACE-4 ADULT 10ML VIAL 3 ML in CLINIMIX-E 5%AA /D15%W 2... IV ONE (20:29)
[2024-07-18] VITALS (11 sets, daily range): BP systolic 105–129; BP diastolic 70–81; PULSE 74–91; RESP 16–20; TEMP 98.8–98.9; O2SAT 94–100
[2024-07-18 04:44] LABS: BASOPHILS # (AUTO) 0.03 K/uL (0.00-0.20); BASOPHILS % (AUTO) 0.7 % (0.0-5.0); EOSINOPHILS # (AUTO) 0.23 K/uL (0.00-0.70); EOSINOPHILS % (AUTO) 5.2 % (0.0-8.0); HEMATOCRIT 27.9 % (36-48); IMMATURE GRANULOCYTE ABSOLUTE 0.02 K/uL (0-1); LYMPHOCYTES # (AUTO) 0.9 K/uL (1.0-4.8); LYMPHOCYTES % (AUTO) 20.4 % (21.0-51.0); MEAN CORPUSCULAR HEMOGLOBIN 31.6 pg (27.0-33.0); MEAN CORPUSCULAR HGB CONC 30.1 g/dL (32.0-36.0); MEAN CORPUSCULAR VOLUME 104.9 fL (79-99); MONOCYTES # (AUTO) 0.5 K/uL (0.1-1.0); MONOCYTES % (AUTO) 11.4 % (3.0-13.0); NEUTROPHILS # (AUTO) 2.8 K/uL (1.8-7.7); NEUTROPHILS % (AUTO) 61.9 % (40.0-77.0); PLATELET COUNT (AUTO) 177 K/uL (130-400); RED BLOOD CELL COUNT(AUTO) 2.66 MIL/uL (4.00-5.50); RED CELL DISTRIBUTION WIDTH 18.1 % (11.0-15.5); WHITE BLOOD COUNT (AUTO) 4.5 K/uL (4.8-10.8)
[2024-07-18 05:06] LABS: BILIRUBIN,TOTAL 0.2 mg/dL (0.2-1.0); CREATININE 0.3 mg/dL (0.5-1.0); MAGNESIUM 1.9 mg/dL (1.80-2.40); POTASSIUM 3.2 mmol/L (3.5-5.1); TOTAL PROTEIN, SERUM 4.1 g/dL (6.0-8.3)
[2024-07-18] MEDS: PoTASSium chloRIDE 20MEQ/100ML 100 ML IV SCH (06:06)
[2024-07-18] MEDS ORDERED: PoTASSium chloRIDE 20MEQ ER 20 MEQ ERTAB PO PRN (11:00)
[2024-07-18] MEDS ORDERED: GLUCAGON 1MG KIT 1 MG ML IM PRN (11:00)
[2024-07-18] MEDS ORDERED: MAGNESIUM 2GM PREMIX 50ML 50 ML IV PRN (11:00)
[2024-07-18] MEDS ORDERED: PoTASSium chl 10% ELIXIR 20MEQ 20 MEQ/15 ML UDCUP PO PRN (11:00)
[2024-07-18] MEDS ORDERED: DEXTROSE 50%-WATER 50 ML DISP.SYRIN IV PRN (11:00)
[2024-07-18] MEDS ORDERED: PoTASSium chloRIDE 10MEQ/100ML 100 ML IV PRN (11:00)
--- NOTE | 2024-07-18 11:21 | PN ---
[facility] PROGRESS NOTE Date of Service: Jul 18, 2024 Time of Service: 11:[address] Johnson 69-year-old female admitted with multifocal pneumonia and pleural effusion SUBJECTIVE: [ Hospital day 1. For 69-year-old female admitted with multifocal pneumonia and pericardial effusion. On further history with the patient as well as her spouse who is my patient at the [facility]. Patient has had problems with chronic esophageal and sounds like gastric strictures for the past six months. Patient has been seeing Dr. Ki Medina gastrointestinal specialist and Dr. Philip at the same group and has had multiple dilations including balloon dilation on about four or five occasions. Patient's weight has gone down from about just under 200 lb to less than 100 lb but she has recently gained about 27 lb back per her spouse. Patient has been in and out of the [facility] for rehab and [facility]. She had a complication and in esophageal tear that was a complication from too much pressure with a balloon dilator. I asked her if she bled significantly as she is on blood thinners but he has had no. Otherwise the patient states that she has had about a week's worth of a productive cough with brown phlegm no fevers or chil ls. Patient had a fall approximately six months ago in which a lot of her problems started. She has essentially been nonambulatory since this fall. Although when she was at the correction they did set her up and do gentle [id number] exercises and even short ambulation with the assistance patient has been bed- bound essentially. She had significant swelling to most of her body and was told this was from malnutrition that has been slowly improving over the last few weeks now that she is able to take by mouth. She has complicating factors in the sense that she fell and destroyed her implants and upper anchor for her dentures and so has had to have pureed food only 07/11/2024: No significant interval events reported by nursing staff. Patient reports no pain or shortness for breath. Her morning labs were reviewed 07/12/24 patient was seen by nurse practitioner and physician during rounding in room 230. Patient was comfortably lying in bed. Urine culture final negative. Blood culture 48 hours negative so far. Patient was evaluated by sawdust drier and was cleared for EGD. Patient was evaluated by Dr. Moon and EGD was perfor med, which showed benign appearing esophageal stenosis. And nonbleeding perforation was found in the esophagus. Afterwards we found out that patient belongs to Dr. Monroy so the care was change to other group of GI. Patient is pending possible esophagram was evaluated by other GI group. CT chest/abdomen showed aspiration pneumonia small pericardial effusion, small abdominal ascites and anasarca. 2D echo EF 60 65% stage I diastolic dysfunction large left pleural effusion. As per GI patient is not a candidate for PEG tube due to history of a bypass. Patient has bilateral lower extremity swelling we will order 20 mg of Lasix IV one dose only. We will do CBC, CMP and magnesium stat, as well we will repeat morning labs. Patient came from [facility] per family member at the bedside would like to return done once patient medically cleared. We will continue to monitor patient in the meantime. A.m. labs 07/13 patient was seen by nurse practitioner and physician during rounding in room 230. No family member at the bedside at this moment. Patient was evaluated by the oxyhydrogen welder and per chest x-ray no pneumothorax is visible. No chest needed at this moment. As per GI patient is pending esophagram with possible stent placement on Friday07/14/2024. Patient will receive 60 mEq of potassium in total for potassium of 2.6. Patient will also receive 2 g of magnesium for magnesium 1.6 today in a.m.. Today albumin is 1.0 patient will receive albumin as well. PT working with the patient. Final urine culture negative. Blood culture-48 hours. We will continue to monitor patient in the meantime. A.m. labs. 07/14 patient was seen by nurse practitioner and physician during rounding. Family member at the bedside was informed regards to further plan. Patient is pending esophagram with stent placement today. Once cleared the patient will be able to eat patient to be discharged to [facility]. Magnesium today 1.7 patient will receive 2 g of magnesium. We are pending morning lab results. RN instructed to cover potassium if low per protocol. We will continue to monitor patient in the meantime. A.m. labs. 07/15 patient was seen by nurse practitioner physician during rounding in room 210. Patient is s/p EGD with stent placement yesterday 07/14/[address] Monroy. Today patient is pending PEG tube placement. Nurse practitioner was able to talk to Toshia Reyes NP with GI group at 8:47 a.m. and after PEG tube placement . Patient's potassium today is 4.5. Albumin 1.0. Patient will receive 2 mg of albumin. Magnesium 1.6 patient received 2 g of magnesium. We will also repeat CBC due to drop of hemoglobin. Blood culture negative x5 days. Urine growing Pseudomonas aeruginosa PICC line placed for IV antibiotics. Patient will need Merrem for one week after discharge. We will continue to monitor patient in the meantime. A.m. labs.] 07/17 patient is seen and examined at bedside, no acute events overnight per discussion with the nurse taking care of the patient. Patient is status post PEG tube placement. CT chest and abdomen done yesterday there is free intraperitoneal air with small amount of ascites, contrast is seen within the stomach without diffuse extravasation, findings are suspicious for bowel perforation. Surgical consultation is recommended. Currently the patient is NPO, peg tube feeding has not been started. We will resume Clinimix. 07/18 patient was seen by nurse practitioner and physician during rounding in room 230. No family member at the bedside at this moment. Patient is pending bowel series on Friday07/19/2024 as ordered by the GI. Patient will receive two doses of 20 mEq of potassium in the meantime. Continue Clinimix. We will continue to monitor patient in the meantime. A.m. labs. REVIEW OF SYSTEMS CONSTITUTIONAL: Denies fevers, chills, or night sweats. wt loss as described above of about 80lbs in 6 months NEUROLOGICAL: no n/t, no hx of strokes ENT: No hearing loss, otalgia, otorrhea, rhinitis, rhinorrhea, or sore throat.+very raspy voices CARDIOVASCULAR: Denies any exertional angina, dyspnea on exertion, orthopnea, paroxysmal nocturnal dyspnea, palpitations, life-threatening arrhythmias, claudication. GASTROINTESTINAL: See history of present illness, + esophageal stenosis and dysphagia for six months. Positive nausea and intermittent vomiting, regular bowel movements no diarrhea no bloody stools GENITOURINARY: Denies increased frequency, no urgency or pain with urination. Patient states he is continent to both bowel and bladder. ENDOCRINOLOGIC: Denies polyuria, polydipsia, polyphagia or heat/cold intolerances. HEMATOLOGIC: Patient did have a clot in her upper extremity a few months back. That resolved on its own per the patient's spouse, Cedrick. ONCOLOGIC: Denies personal history of malignancy. DERMATOLOGIC: Easy bruisability with multiple ecchymotic areas to the neck. PSYCHIATRIC: Denies any suicidal or homicidal ideation. Denies hallucinations. Positive depressive symptomatology because of health decline with the last six months. PHYSICAL EXAM GENERAL APPEARANCE: The patient is awake, alert, and oriented, in no acute cardiopulmonary distress. Very cachectic appearing 69-year-old female appearing much older than stated age NEUROLOGICAL: Cranial nerves II-XII grossly intact. Motor is 4+/5 in bilateral upper and lower extremities proximal to distal. No sensory deficits. HEENT: Face is symmetric. Pupils are equal and reactive. Extraocular movements are intact. TMs are pearly riley and external auditory canals are without inflammation. NECK: Supple. No JVD. No thyromegaly. No submental, submandibular, pre- /postauricular, occipital or supraclavicular lymphadenopathy. CHEST: Normal chest expansion. LUNGS: Bilateral rhonchi noted to the mid and lower lung adams, no wheezes or rales noted. CARDIOVASCULAR: Regular. S1 and S2 normal. No appreciable rubs, murmurs or gallops. ABDOMEN: Soft, nontender, and nondistended. There is no rebound, voluntary guarding, or rigidity. : Deferred. No Manuel. EXTREMITIES: Non-edematous and not cyanotic. No clubbing. Good capillary refill. Dorsalis pedis pulse present to the right foot left foot dorsalis pedis very slightly palpable but cap refill brisk posterior tibial pulses felt x2 SKIN: No skin breakdown. Vital Signs (last 8hr) Date Time Temp Pulse Resp B/P (MAP) Pulse Ox O2 Delivery O2 Flow Rate FiO2 07/18/24 08:00 99.0 82 16 105/81 97 Room Air 07/18/24 07:20 82 20 N/A Room Air 07/18/24 05:07 98.8 74 18 129/72 95 Room Air LABS: Laboratory: Test 07/18/24 11:01 07/18/24 04:20 07/16/24 19:41 Range/Units Whole Blood Glucose 94 70-110 MG/DL White Blood Count 4.5 L 4.8-10.8 K/uL Red Blood Count 2.66 L 4.00-5.50 MIL/uL Hemoglobin 8.4 L 12.0-16.0 g/dL Hematocrit 27.9 L 36-48 % Mean Corpuscular Volume 104.9 H 79-99 fL Mean Corpuscular Hemoglobin 31.6 27.0-33.0 pg Mean Corpuscular Hemoglobin Concent 30.1 L 32.0-36.0 g/dL Red Cell Distribution Width 18.1 H 11.0-15.5 % Platelet Count 177 130-400 K/uL Mean Platelet Volume 10.6 H 7.5-10.5 fL Immature Granulocyte % (Auto) 0.4 0-1 % Neutrophils (%) (Auto) 61.9 40.0-77.0 % Lymphocytes (%) (Auto) 20.4 L 21.0-51.0 % Monocytes (%) (Auto) 11.4 3.0-13.0 % Eosinophils (%) (Auto) 5.2 0.0-8.0 % Basophils (%) (Auto) 0.7 0.0-5.0 % Neutrophils # (Auto) 2.8 1.8-7.7 K/uL Lymphocytes # (Auto) 0.9 L 1.0-4.8 K/uL Monocytes # (Auto) 0.5 0.1-1.0 K/uL Eosinophils # (Auto) 0.23 0.00-0.70 K/uL Basophils # (Auto) 0.03 0.00-0.20 K/uL Absolute Immature Granulocyte (auto 0.02 0-1 K/uL Nucleated Red Blood Cells 0.0 0.0-0.19 % Sodium Level 138 136-145 mmol/L Potassium Level 3.2 L 3.5-5.1 mmol/L Chloride Level 108 101-111 mmol/L Carbon Dioxide Level 28 21-32 mmol/L Blood Urea Nitrogen 11 7-18 mg/dL Creatinine 0.3 L 0.5-1.0 mg/dL Glomerular Filtration Rate Calc 116 >90 mL/min Random Glucose 115 H 70-105 mg/dL Total Calcium 7.7 L 8.5-10.1 mg/dL Magnesium Level 1.90 1.80-2.40 mg/dL Total Bilirubin 0.2 0.2-1.0 mg/dL Aspartate Amino Transf (AST/SGOT) 26 10-37 U/L Alanine Aminotransferase (ALT/SGPT) 10 L 12-78 U/L Alkaline Phosphatase 67 50-136 U/L Total Protein 4.1 L 6.0-8.3 g/dL Albumin 1.0 L 3.5-5.0 g/dL Bedside Glucose Comment Notified Nurse Current Medications Medications (Trade) Dose Ordered Sig/Jennifer Route PRN Reason Start Time Stop Time Status Last Admin Dose Admin Acetaminophen (TYLenol 650MG SUPPOSITORY) 650 mg Q6H PRN RC MILD PAIN (1-3) 07/09/24 19:30 08/08/24 19:29 Albumin Human 50 ml @ 0 mls/hr AD IV 07/13/24 07:30 07/13/24 07:17 DC Albumin Human 100 ml @ 0 mls/hr AD IV 07/15/24 08:30 07/16/24 08:29 DC Albuterol (DUOneb) 1 UDVIAL [id number] IH 07/10/24 00:00 08/09/24 00:00 07/16/24 13:13 1 UDVIAL Bacitracin (Bacitracin 28.4gm) apply to left calf and l... DAILY TP 07/17/24 09:00 08/16/24 08:59 07/17/24 09:23 28.4 GM Bisacodyl (DulcoLAX 5MG TAB) 5 mg AM PO 07/12/24 09:00 08/11/24 08:59 07/17/24 09:21 5 MG Ceftazidime (ForTAZ/TAZidime) 2 gm Q8H IVPB 07/13/24 15:00 07/13/24 15:06 DC Ceftriaxone Sodium (ROCEphine 1G INJ) 1 gm ONCE IVPB 07/09/24 19:19 07/09/24 23:59 DC 07/09/24 19:19 1 GM Dextrose (D50w) 50 ml AD PRN IV HYPOGLYCEMIA PROTOCOL 07/15/24 14:30 07/16/24 11:38 DC Dextrose (D50w) 50 ml AD PRN IV HYPOGLYCEMIA PROTOCOL 07/16/24 12:00 08/15/24 11:59 07/16/24 20:07 50 ML Dextrose (D50w) 50 ml AD PRN IV HYPOGLYCEMIA PROTOCOL 07/13/24 06:00 07/15/24 14:09 DC 07/14/24 11:32 50 ML Dextrose (D50w) 50 ml AD PRN IV HYPOGLYCEMIA PROTOCOL 07/13/24 06:30 07/13/24 06:11 DC Dextrose/Lactated Ringer's 1,000 ml @ 50 mls/hr Q20H IV 07/11/24 20:00 08/10/24 19:59 07/17/24 18:13 50 MLS/HR Doxycycline Hyclate 250 ml @ 125 mls/hr Q12H IV 07/12/24 05:00 07/14/24 08:05 DC 07/14/24 05:12 125 MLS/HR Enoxaparin Sodium (Lovenox) 40 mg DAILY SQ 07/10/24 09:00 07/10/24 19:01 DC 07/10/24 10:15 40 MG Ergocalciferol (Drisdol) 1,250 unit AM PO 07/12/24 09:00 07/12/24 07:47 DC Famotidine (Pepcid 20mg Vial) 20 mg DAILY IV 07/10/24 09:00 07/12/24 07:38 DC 07/11/24 09:00 20 MG Fludrocortisone Acetate (Fludrocortisone Acetate) 0.1 mg DAILY PO 07/12/24 09:00 08/11/24 08:59 07/17/24 09:22 0.1 MG Furosemide (LASix 20MG TAB) 20 mg DAILY PO 07/12/24 09:00 07/12/24 04:49 DC Glucagon (Glucagon 1mg Kit) 1 mg AD PRN IM HYPOGLYCEMIA PROTOCOL 07/15/24 14:30 07/16/24 11:38 DC Glucagon (Glucagon 1mg Kit) 1 mg AD PRN IM HYPOGLYCEMIA PROTOCOL 07/16/24 12:00 08/15/24 11:59 Glucagon (Glucagon 1mg Kit) 1 mg AD PRN IM HYPOGLYCEMIA PROTOCOL 07/13/24 06:00 07/15/24 14:09 DC Glucagon (Glucagon 1mg Kit) 1 mg AD PRN IM HYPOGLYCEMIA PROTOCOL 07/13/24 06:30 07/13/24 06:11 DC Home Med (Home Medication) (Folic Acid 1 CAP) DAILY PO 07/12/24 09:00 08/11/24 08:59 Home Med (Home Medication) ([Azasan] 50 MG) AM PO 07/12/24 09:00 08/11/24 08:59 Hydralazine HCl (APRESOLine 20MG INJ) 10 mg Q6H PRN IV For:SBP above 160;DBP above 90 07/09/24 19:30 08/08/24 19:29 Insulin Human Regular (humuLIN R 100 UNIT/ML 3ML) INSULIN SLIDING SCAL... ACHS SQ 07/15/24 16:30 07/16/24 11:38 DC Insulin Human Regular (humuLIN R 100 UNIT/ML 3ML) INSULIN SLIDING SCAL... ACHS SQ 07/16/24 16:30 08/15/24 16:29 Lactated Ringer's 1,000 ml @ 75 mls/hr [id number] IV 07/09/24 19:30 07/11/24 19:49 DC 07/10/24 21:39 75 MLS/HR Levothyroxine Sodium (SYNTHroid 50MCG TAB) 50 mcg SYN PO 07/13/24 06:30 08/12/24 06:29 07/17/24 06:03 50 MCG Loratadine (LORATAdine 10 mg) 10 mg DAILY PO 07/12/24 09:00 08/11/24 08:59 07/17/24 09:21 10 MG Magnesium Sulfate 50 ml @ 0 mls/hr PROTOCOL IV 07/13/24 07:30 07/13/24 07:14 DC Magnesium Sulfate 50 ml @ 0 mls/hr PROTOCOL PRN IV other 07/15/24 14:30 07/16/24 11:40 DC Magnesium Sulfate 50 ml @ 0 mls/hr PROTOCOL PRN IV other 07/16/24 12:00 08/15/24 11:59 Magnesium Sulfate 50 ml @ 0 mls/hr PROTOCOL PRN IV MAGNESIUM PROTOCOL 07/13/24 06:00 07/15/24 14:07 DC 07/15/24 06:07 25 MLS/HR Meropenem (Merrem 1gm) 1 gm Q8H IVPB 07/13/24 16:00 07/14/24 16:54 DC 07/14/24 11:32 1 GM Meropenem (Merrem 1gm) 1 gm Q8H IVPB 07/14/24 20:00 07/24/24 19:59 07/18/24 03:58 1 GM Metronidazole/ Sodium Chloride 100 ml @ 100 mls/hr Q8H6 IVPB 07/13/24 22:00 07/13/24 15:06 DC Midodrine (PROAMatine 5 MG TABLET) 5 mg TID PO 07/12/24 09:00 08/11/24 08:59 07/17/24 13:06 5 MG Miscellaneous Medication (Esomeprazole Magnesium ) 1 cap DAILY PO 07/12/24 09:00 07/12/24 07:38 DC Miscellaneous Medication (Famotidine ) 1 tab DAILY PO 07/12/24 09:00 07/12/24 07:38 DC Miscellaneous Medication (Ondansetron HCl ) 1 tab TID PO 07/12/24 09:00 07/12/24 07:47 DC Miscellaneous Medication (Sertraline HCl ) 1 tab DAILY PO 07/12/24 09:00 07/12/24 07:41 DC Montelukast Sodium (SinguLAIR) 10 mg DAILY PO 07/12/24 09:00 08/11/24 08:59 07/17/24 09:21 10 MG Morphine Sulfate (morPHINE 2MG SYG) 2 mg Q4H PRN IVP SEVERE PAIN (7-10) 07/16/24 05:30 07/23/24 05:29 07/18/24 10:39 2 MG Morphine Sulfate (morPHINE 2MG SYG) 2 mg Q4H PRN IVP SEVERE PAIN (7-10) 07/10/24 19:30 07/15/24 22:29 DC 07/13/24 21:13 2 MG Morphine Sulfate (morPHINE 4MG SYG) 2 mg Q4H PRN IVP SEVERE PAIN (7-10) 07/09/24 19:30 07/10/24 19:01 DC Ondansetron HCl (zoFRAN 4MG INJ) 4 mg Q6H PRN IV NAUSEA/VOMITING 07/09/24 19:30 08/08/24 19:29 Pantoprazole Sodium (PROTonix 40MG INJ) 40 mg BID IVP 07/14/24 21:00 08/13/24 20:59 07/17/24 20:30 40 MG Pantoprazole Sodium (PROTonix 40MG INJ) 40 mg DAILY IVP 07/14/24 09:00 07/15/24 07:56 DC 07/14/24 11:38 40 MG Pantoprazole Sodium (PROTonix 40MG TAB) 40 mg DAILY PO 07/12/24 09:00 07/14/24 08:39 DC Piperacillin Sod/ Tazobactam Sod (Zosyn 3.375gm+NS 50ml) 3.375 gm Q12H IV 07/12/24 05:00 07/12/24 04:51 DC Piperacillin Sod/ Tazobactam Sod (Zosyn 3.375gm+NS 50ml) 3.375 gm ZOSY8 IV 07/09/24 21:00 07/13/24 14:39 DC 07/13/24 12:51 3.375 GM Potassium Chloride 100 ml @ 50 mls/hr AD PRN IV POTASSIUM PROTOCOL 07/13/24 06:30 07/15/24 14:07 DC 07/15/24 04:59 50 MLS/HR Potassium Chloride 100 ml @ 50 mls/hr PROTOCOL IV 07/15/24 08:30 07/15/24 08:27 DC Potassium Chloride 100 ml @ 50 mls/hr PROTOCOL IV 07/16/24 09:30 08/15/24 09:29 07/18/24 06:06 50 MLS/HR Potassium Chloride 100 ml @ 50 mls/hr PROTOCOL IV 07/13/24 07:30 07/13/24 07:14 DC Potassium Chloride 100 ml @ 50 mls/hr PROTOCOL IV 07/13/24 11:00 07/13/24 07:14 DC Potassium Chloride 100 ml @ 50 mls/hr PROTOCOL IV 07/13/24 16:00 07/13/24 07:14 DC Potassium Chloride 100 ml @ 100 mls/hr AD PRN IV POTASSIUM PROTOCOL 07/15/24 14:30 07/16/24 09:18 DC 07/16/24 04:42 100 MLS/HR Potassium Chloride 100 ml @ 100 mls/hr AD PRN IV POTASSIUM PROTOCOL 07/16/24 09:30 08/15/24 09:29 Potassium Chloride (K-Dur/Klor-Con 20meq) 10 meq AD PRN PO POTASSIUM PROTOCOL 07/15/24 14:30 07/16/24 11:38 DC Potassium Chloride (KCl 10% Elixir 20meq/15ml) 10 meq AD PRN PO POTASSIUM PROTOCOL 07/15/24 14:30 07/16/24 11:38 DC Quetiapine Fumarate (SEROquel 25 mg TAB) 50 mg HS PO 07/12/24 21:00 08/11/24 20:59 07/16/24 21:56 50 MG Sertraline HCl (ZOloft 50 mg tab) 150 mg DAILY PO 07/11/24 09:00 08/10/24 08:59 07/17/24 09:22 150 MG Simvastatin (zoCOR) 20 mg HS PO 07/12/24 21:00 08/11/24 20:59 07/16/24 21:57 20 MG Sodium Chloride 1,000 ml @ 500 mls/hr Q2H IV 07/09/24 17:34 07/10/24 01:15 DC 07/09/24 19:34 500 MLS/HR Spironolactone (Aldactone 25mg) 25 mg DAILY PO 07/12/24 09:00 07/12/24 04:49 DC Sucralfate (Carafate) 1 gm TID PO 07/12/24 09:00 08/11/24 08:59 07/17/24 13:06 1 GM Vitamin B Complex (Vitamin B-12) 1,000 mcg DAILY PO 07/12/24 09:00 08/11/24 08:59 07/17/24 09:21 1,000 MCG DIAGNOSTICS / RADIOLOGY: [ ] ASSESSMENT: [1. Left upper and lower lobe aspiration pneumonia POA 2 small pericardial effusion per 2D echo POA 3. Uncontrolled Hypertension POA 4. Hyperlipidemia POA 5. History of anasarca POA 6. Severe protein calorie malnutrition POA 7. Bed-bound x6 months POA 8. Depression likely adjustment reaction to severe health decline over the last six months POA 9. Leukopenia POA 10. History of orthostatic hypotension POA 11. Esophageal stricture history 12. S/p EGD with stent placement 07/14/2024 s/p PEG tube placement 07/15/24 s/p stent removal due to displacement 07/16/2024 13. hypothyroidism POA 14. Macrocytic anemia, POA 15. B12 deficiency on oral replacement POA Perforation of esophagus per CT abdomen/pelvis POA Esophageal dysfunction per CT abdomen/chest POA Acute on chronic diastolic heart failure 2D echo EF 60 65% stage I diastolic d ysfunction Acute complicated cystitis POA Pseudomonas aeruginosa urine culture ] Possible perforated bowel PLAN: The patient remains admitted to the PCU Continue the patient on school lunch monitor Hold feeding through the PEG tube until evaluated by General surgery, we will follow input and recommendation. Continue to follow GI input and recommendation. NEURO: Minimize central acting medications as possible. Fall Precautions. Well lighted room through the day and minimize interruptions through the night to prevent acute delirium. PULMONARY: Supplemental 02 as needed BiPAP as necessary, for respiratory distress Titrate Fio2 to keep Spo2 > or = 90% DuoNebs and CPT as needed IS hourly while awake for pulmonary hygiene prn Out of bed to chair as tolerated Maintain aspiration precautions at all times CARDIOVASCULAR: Follow hemodynamics. Vital signs per facility protocol GI & NUTRITION: CT abdomen/chest free intraperitoneal air with small amount of ascites. Contrast is seen within the stomach without diffuse extravasation. Findings suggestive of bowel perforation correlation is recommended. Surgical consultation recommended. Patient receive two doses of 20 mEq of potassium through IV Continue nutritional support Aspirations precautions Prokinetic agents and laxatives as needed KIDNEYS & ELECTROLYTES: Strict monitoring of intake and output Daily weights Avoid nephrotoxic agents Monitor electrolytes and replace as needed Goal urine output of 30mL/hr or 0.5mL/kg/hr Medications to be dosed according to renal function. Avoid contrast if possible ENDOCRINE: Maintain blood glucose between 100-180 at all times. Insulin sliding scale for blood glucose management Hypoglycemia and hyperglycemia protocol in place INFECTIOUS DISEASE: Trend temperature, WBC and procalcitonin level Follow cultures, deescalate antibiotics as soon as possible. Panculture if new onset fever HEMATOLOGY & COAGULATION: Monitor H&H. Keep Hgb > 7 Transfuse 1 unit of PRBC for Hgb < 7 Transfuse 1 pack of platelets of platelets < 20, 000 Watch for any signs and symptoms of bleeding SKIN: Pressure ulcer prevention per facility protocol Specialty mattress as needed ORTHO/REHAB Continue PT/OT PRN: MEDICATIONS Tylenol 650 mg po every 4 hrs for fever zofran 4 mg IV every 6 hrs for n/v Hydralazine 5 mg IV every 4 hrs systolic pressure > 160 bowel regiment: lactulose 20 gm PO BID PRN constipation Supportive measures: Continue GI and DVT prophylaxis Disposition: Pending Improvement in clinical condition All questions answered time spent: > 35 min ATTESTATION BY PHYSICIAN I have seen and examined the patient. I reviewed the documentation, medical decision making, and treatment plan as noted by the mid-level provider above. I agree with the findings and plan of care. LELE JOHNSON MD, [employer]AT[employer]YNA [employer] E[employer]IPMENT OPERATOR Jul 18, 2024 11:21
[2024-07-18] MEDS: INSULIN humuLIN R 100 UNIT/ML 3ML SQ SCH (11:30)
--- NOTE | 2024-07-18 15:44 | PN ---
[facility] PROGRESS NOTE Date Patient Seen: Jul 18, 2024 Time of Visit: 15:43 Supervising Physician: Dr. Torres Primary Care Physician: [CATALYST] Outpatient Specialists: [ ] Inpatient Consults: [BIS] PROBLEM LIST: Esophageal tear s/p EGD and stent placement. 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 She is in no apparent distress. She is currently recieving TPN via PICC line. She is s/p EGD with esophageal stent placement by Dr Monroy yesterday . She is pending Gtube placement today per DR Armendariz. She denies any pain or shortness of breath. She reports no nausea or vomiting. She is more alert than previous days and reports she is feeling well. not at bedside today. Labs unremarkable. Electrolytes to be replaced per protocols. 07/16/2024: At the time of my evaluation, the patient was lying in bed. Patient had no new complaint. Vital signs today were stable. Laboratory data today notable for low H&H 8.9/28.5 and a platelet count of 205. Chemistry panel was notable for a potassium of 3.1. CT imaging of the chest and abdomen showed free intraperitoneal air with small amount of ascites. Contrast was seen within the stomach without diffuse extravasation, this raised concern for bowel perforation. The patient continues on antibiotic therapy with IV Merrem and is so far tolerating well. The staff nurse reports no acute events otherwise. No other complaint. 07/27/2024: At the time of my evaluation, the patient was lying in bed. The staff nurse reports no acute events overnight. Vital signs obtained are generally stable. Laboratory data today showed improved H&H 9.1/29.2 and a platelet count of 206. Chemistry panel was a generally stable. No new imaging for review today. CT abdomen obtained yesterday, showed free intraperitoneal air with small amount of ascites. Contrast was seen within the stomach without diffuse extravasation. Findings are suspicious for bowel perforation and clinical correlation is recommended. Surgical consultation is recommended. No other complaint. 07/18/2024: At the time of my evaluation, the patient is lying in bed. She is minimally interactive and remains on room air. Spouse is present at the bedside. On the monitor, the patient is hemodynamically stable. Laboratory data today showed WBC 4.5, H&H 0.4/27.9 and a platelet count of 177. Chemistry panel was notable for potassium of 3.2. No new imaging for review today. Currsahara urena, the patient remains on TPN for nutritional support and is pending General surgery's consultation. She continues on antibiotic therapy with IV Merrem. No other complaint. REVIEW OF SYSTEMS: 12 point ROS reviewed with patient. Pertinent positives mentioned above. Otherwise negative. PHYSICAL EXAM: GENERAL: alert, weak, awake oriented x 3, moderate to severe scoliosis HEENT: EOMI, Sclera non icteric, moist mucosa NECK: Supple, no JVD, trachea midline LUNGS: Clear breath sounds bilaterally. No wheezes HEART: Regular rate and rhythm. Normal S1 and S2, without murmurs ABD: Abdomen soft, nontender. Bowel sounds present EXT: No clubbing cyanosis or edema NEURO: Alert and oriented to person, follows commands Vital Signs (last 8hr) Date Time Temp Pulse Resp B/P (MAP) Pulse Ox O2 Delivery O2 Flow Rate FiO2 07/18/24 12:00 99.0 89 16 111/77 94 Room Air 07/18/24 09:20 100 Room Air* 0 21 07/18/24 08:00 99.0 82 16 105/81 97 Room Air LABS: Hematology Labs: Test 07/18/24 04:20 Range/Units White Blood Count 4.5 L 4.8-10.8 K/uL Red Blood Count 2.66 L 4.00-5.50 MIL/uL Hemoglobin 8.4 L 12.0-16.0 g/dL Hematocrit 27.9 L 36-48 % Mean Corpuscular Volume 104.9 H 79-99 fL Mean Corpuscular Hemoglobin 31.6 27.0-33.0 pg Mean Corpuscular Hemoglobin Concent 30.1 L 32.0-36.0 g/dL Red Cell Distribution Width 18.1 H 11.0-15.5 % Platelet Count 177 130-400 K/uL Mean Platelet Volume 10.6 H 7.5-10.5 fL Immature Granulocyte % (Auto) 0.4 0-1 % Neutrophils (%) (Auto) 61.9 40.0-77.0 % Lymphocytes (%) (Auto) 20.4 L 21.0-51.0 % Monocytes (%) (Auto) 11.4 3.0-13.0 % Eosinophils (%) (Auto) 5.2 0.0-8.0 % Basophils (%) (Auto) 0.7 0.0-5.0 % Neutrophils # (Auto) 2.8 1.8-7.7 K/uL Lymphocytes # (Auto) 0.9 L 1.0-4.8 K/uL Monocytes # (Auto) 0.5 0.1-1.0 K/uL Eosinophils # (Auto) 0.23 0.00-0.70 K/uL Basophils # (Auto) 0.03 0.00-0.20 K/uL Absolute Immature Granulocyte (auto 0.02 0-1 K/uL Nucleated Red Blood Cells 0.0 0.0-0.19 % Chemistry Labs: Test 07/18/24 11:01 07/18/24 04:20 07/16/24 19:41 Range/Units Whole Blood Glucose 94 70-110 MG/DL Sodium Level 138 136-145 mmol/L Potassium Level 3.2 L 3.5-5.1 mmol/L Chloride Level 108 101-111 mmol/L Carbon Dioxide Level 28 21-32 mmol/L Blood Urea Nitrogen 11 7-18 mg/dL Creatinine 0.3 L 0.5-1.0 mg/dL Glomerular Filtration Rate Calc 116 >90 mL/min Random Glucose 115 H 70-105 mg/dL Total Calcium 7.7 L 8.5-10.1 mg/dL Magnesium Level 1.90 1.80-2.40 mg/dL Total Bilirubin 0.2 0.2-1.0 mg/dL Aspartate Amino Transf (AST/SGOT) 26 10-37 U/L Alanine Aminotransferase (ALT/SGPT) 10 L 12-78 U/L Alkaline Phosphatase 67 50-136 U/L Total Protein 4.1 L 6.0-8.3 g/dL Albumin 1.0 L 3.5-5.0 g/dL Bedside Glucose Comment Notified Nurse DIAGNOSTICS / RADIOLOGY RESULTS: [ ] PLAN planned gtube placement for today. continue TPN until ok to use gtube, continue iv abx with meropenem. Pending sputum culture, order procalcitonin Consider initiating lasix and spironolactone once able to tolerate oral diet Conservative management and monitoring of pleural effusion GI for management of esophageal stricture Disposition per primary 07/16/2024: For now, going to continue current management for the patient. We are going to follow the recommendation of the treating specialist. The patient will continue antibiotic therapy as ordered. We will repeat surveillance labs in the morning. We will continue replacing the electrolyte deficit per the protocol. We will continue to provide general supportive care, GI and DVT prophylaxis. Further orders per attending MD and hospital course. 07/17/2024: For now, going to continue current management for the patient. We will discontinue the enteral feedings and we will probably switch the patient back to TPN. We will follow the recommendation of the primary team. Based on the patient's current condition she may benefit from palliative /hospice care. We will need to discuss the the goals of end of life care with event marketing representative constitution party. We will monitor the patient's progress and response to management. Follow recommendation of treating specialist. Further orders per attending MD and hospital course. 07/18/2024: For now, going to continue current management for the patient. She will continue on antibiotic therapy as ordered and we will follow the WBC trend. For nutritional support, the patient will remain on Clinimix and keep her NPO while we await general surgery input due to the esophageal and small bowel perforation. We will monitor the patient's progress and response to management. We will continue to provide general supportive care, GI and DVT prophylaxis. Further orders per attending MD and hospital course. NEURO: Minimize central acting medications as possible. Maintain fall precautions, adequate lighting during the day PULMONARY: Supplemental 02 as needed. Maintain aspiration precautions at all times CARDIOVASCULAR: Follow hemodynamics. Vital signs per facility protocol GI & NUTRITION: Continue with nutritional support. Continue stool softeners and laxatives as needed. KIDNEYS & ELECTROLYTES: Strict monitoring of intake, output and overall fluid balance. Avoid nephrotoxic medications to the extent possible. Medications to be dosed according to renal function. Monitor electrolytes and replace as needed ENDOCRINE: Maintain blood glucose between 100-180 at all times. Hypoglycemia protocol in place INFECTIOUS DISEASE: Trend temperature, WBC and procalcitonin level Follow cultures, deescalate antibiotics as soon as possible. Panculture if new onset fever ONCOLOGY/HEMATOLOGY/COAGULATION: Monitor for s/s of bleeding Monitor hemoglobin, coagulation studies as needed SKIN: Pressure ulcer prevention per facility protocol Specialty mattress ORTHO/REHAB: Continue PT/OT Prophylaxis: Continue GI and DVT prophylaxis Code Status: Full Resuscitation Disposition: [facility] pending acceptance Other: Total patient care time exceeds 35 minutes excluding all procedures. VALDEMAR PATEL NP Jul 18, 2024 15:44
[2024-07-18] MEDS ORDERED: PoTASSium chloRIDE 20MEQ/100ML 100 ML IV SCH (16:00)
[2024-07-19 00:26] VITALS: BP 124/79; PULSE 84; RESP 18; TEMP 98.9
[2024-07-19] MEDS: PoTASSium chloRIDE 20MEQ/100ML 100 ML IV SCH (00:50)
[2024-07-19 03:44] LABS: BASOPHILS # (AUTO) 0.05 K/uL (0.00-0.20); BASOPHILS % (AUTO) 0.9 % (0.0-5.0); EOSINOPHILS # (AUTO) 0.18 K/uL (0.00-0.70); EOSINOPHILS % (AUTO) 3.4 % (0.0-8.0); HEMATOCRIT 26.2 % (36-48); IMMATURE GRANULOCYTE ABSOLUTE 0.02 K/uL (0-1); LYMPHOCYTES # (AUTO) 0.8 K/uL (1.0-4.8); LYMPHOCYTES % (AUTO) 15.5 % (21.0-51.0); MEAN CORPUSCULAR HEMOGLOBIN 32.6 pg (27.0-33.0); MEAN CORPUSCULAR HGB CONC 32.1 g/dL (32.0-36.0); MEAN CORPUSCULAR VOLUME 101.6 fL (79-99); MONOCYTES # (AUTO) 0.6 K/uL (0.1-1.0); MONOCYTES % (AUTO) 11.7 % (3.0-13.0); NEUTROPHILS # (AUTO) 3.6 K/uL (1.8-7.7); NEUTROPHILS % (AUTO) 68.1 % (40.0-77.0); PLATELET COUNT (AUTO) 180 K/uL (130-400); RED BLOOD CELL COUNT(AUTO) 2.58 MIL/uL (4.00-5.50); RED CELL DISTRIBUTION WIDTH 17.6 % (11.0-15.5); WHITE BLOOD COUNT (AUTO) 5.3 K/uL (4.8-10.8)
[2024-07-19 04:03] LABS: ALBUMIN 0.9 g/dL (3.5-5.0); BILIRUBIN,TOTAL 0.2 mg/dL (0.2-1.0); CREATININE 0.2 mg/dL (0.5-1.0); MAGNESIUM 1.7 mg/dL (1.80-2.40); POTASSIUM 3.8 mmol/L (3.5-5.1); TOTAL PROTEIN, SERUM 4.1 g/dL (6.0-8.3)
[2024-07-19 04:04] VITALS: BP 114/66; PULSE 86; RESP 18; TEMP 98.9
[2024-07-19] MEDS: MAGNESIUM 2GM PREMIX 50ML 50 ML IV PRN (05:23)
[2024-07-19 06:44] VITALS: PULSE 71; RESP 20; O2SAT 95
[2024-07-19 06:45] VITALS: PULSE 71; RESP 18
[2024-07-19 07:00] VITALS: O2SAT 96
[2024-07-19 08:00] VITALS: BP 108/70; PULSE 85; RESP 16; TEMP 98.4
[2024-07-19] MEDS ORDERED: PoTASSium chloRIDE 10MEQ SR 10 MEQ/TAB TAB.SR.24H PO PRN (09:00)
[2024-07-19] MEDS ORDERED: MAGNESIUM 2GM PREMIX 50ML 50 ML IV SCH (09:30)
--- NOTE | 2024-07-19 09:43 | PN ---
GENERAL SURGERY PROGRESS NOTE Date/Time Patient Seen: [ ] Problem List: [ ] Interval History: No acute events overnight. 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 Patient also had stent removed by GI during EGD. F/u CT concerning for SBO; however, clinical presentation does not correlate and likely due to surgical changes. Current Medications Medications (Trade) Dose Ordered Sig/Jennifer Route Start Time Stop Time Status Last Admin Dose Admin Albumin Human 50 ml @ 0 mls/hr AD IV 07/13/24 07:30 07/13/24 07:17 DC Albumin Human 100 ml @ 0 mls/hr AD IV 07/15/24 08:30 07/16/24 08:29 DC Albuterol (DUOneb) 1 UDVIAL [id number] IH 07/10/24 00:00 08/09/24 00:00 07/19/24 06:41 1 UDVIAL Bacitracin (Bacitracin 28.4gm) apply to left calf and l... DAILY TP 07/17/24 09:00 08/16/24 08:59 07/19/24 08:12 28.4 GM Bisacodyl (DulcoLAX 5MG TAB) 5 mg AM PO 07/12/24 09:00 08/11/24 08:59 07/17/24 09:21 5 MG Ceftazidime (ForTAZ/TAZidime) 2 gm Q8H IVPB 07/13/24 15:00 07/13/24 15:06 DC Ceftriaxone Sodium (ROCEphine 1G INJ) 1 gm ONCE IVPB 07/09/24 19:19 07/09/24 23:59 DC 07/09/24 19:19 1 GM Dextrose/Lactated Ringer's 1,000 ml @ 50 mls/hr Q20H IV 07/11/24 20:00 08/10/24 19:59 07/18/24 13:41 50 MLS/HR Doxycycline Hyclate 250 ml @ 125 mls/hr Q12H IV 07/12/24 05:00 07/14/24 08:05 DC 07/14/24 05:12 125 MLS/HR Enoxaparin Sodium (Lovenox) 40 mg DAILY SQ 07/10/24 09:00 07/10/24 19:01 DC 07/10/24 10:15 40 MG Ergocalciferol (Drisdol) 1,250 unit AM PO 07/12/24 09:00 07/12/24 07:47 DC Famotidine (Pepcid 20mg Vial) 20 mg DAILY IV 07/10/24 09:00 07/12/24 07:38 DC 07/11/24 09:00 20 MG Fludrocortisone Acetate (Fludrocortisone Acetate) 0.1 mg DAILY PO 07/12/24 09:00 08/11/24 08:59 07/17/24 09:22 0.1 MG Furosemide (LASix 20MG TAB) 20 mg DAILY PO 07/12/24 09:00 07/12/24 04:49 DC Home Med (Home Medication) (Folic Acid 1 CAP) DAILY PO 07/12/24 09:00 08/11/24 08:59 Home Med (Home Medication) ([Azasan] 50 MG) AM PO 07/12/24 09:00 08/11/24 08:59 Insulin Human Regular (humuLIN R 100 UNIT/ML 3ML) INSULIN SLIDING SCAL... ACHS SQ 07/15/24 16:30 07/16/24 11:38 DC Insulin Human Regular (humuLIN R 100 UNIT/ML 3ML) INSULIN SLIDING SCAL... ACHS SQ 07/16/24 16:30 07/18/24 10:51 DC Insulin Human Regular (humuLIN R 100 UNIT/ML 3ML) INSULIN SLIDING SCAL... ACHS SQ 07/18/24 11:30 08/17/24 11:29 Lactated Ringer's 1,000 ml @ 75 mls/hr [id number] IV 07/09/24 19:30 07/11/24 19:49 DC 07/10/24 21:39 75 MLS/HR Levothyroxine Sodium (SYNTHroid 50MCG TAB) 50 mcg SYN PO 07/13/24 06:30 08/12/24 06:29 07/17/24 06:03 50 MCG Loratadine (LORATAdine 10 mg) 10 mg DAILY PO 07/12/24 09:00 08/11/24 08:59 07/17/24 09:21 10 MG Magnesium Sulfate 50 ml @ 0 mls/hr PROTOCOL IV 07/19/24 09:30 07/19/24 09:32 DC Magnesium Sulfate 50 ml @ 0 mls/hr PROTOCOL IV 07/13/24 07:30 07/13/24 07:14 DC Meropenem (Merrem 1gm) 1 gm Q8H IVPB 07/13/24 16:00 07/14/24 16:54 DC 07/14/24 11:32 1 GM Meropenem (Merrem 1gm) 1 gm Q8H IVPB 07/14/24 20:00 07/24/24 19:59 07/19/24 03:31 1 GM Metronidazole/ Sodium Chloride 100 ml @ 100 mls/hr Q8H6 IVPB 07/13/24 22:00 07/13/24 15:06 DC Midodrine (PROAMatine 5 MG TABLET) 5 mg TID PO 07/12/24 09:00 08/11/24 08:59 07/17/24 13:06 5 MG Miscellaneous Medication (Esomeprazole Magnesium ) 1 cap DAILY PO 07/12/24 09:00 07/12/24 07:38 DC Miscellaneous Medication (Famotidine ) 1 tab DAILY PO 07/12/24 09:00 07/12/24 07:38 DC Miscellaneous Medication (Ondansetron HCl ) 1 tab TID PO 07/12/24 09:00 07/12/24 07:47 DC Miscellaneous Medication (Sertraline HCl ) 1 tab DAILY PO 07/12/24 09:00 07/12/24 07:41 DC Montelukast Sodium (SinguLAIR) 10 mg DAILY PO 07/12/24 09:00 08/11/24 08:59 07/17/24 09:21 10 MG Pantoprazole Sodium (PROTonix 40MG INJ) 40 mg BID IVP 07/14/24 21:00 08/13/24 20:59 07/18/24 20:03 40 MG Pantoprazole Sodium (PROTonix 40MG INJ) 40 mg DAILY IVP 07/14/24 09:00 07/15/24 07:56 DC 07/14/24 11:38 40 MG Pantoprazole Sodium (PROTonix 40MG TAB) 40 mg DAILY PO 07/12/24 09:00 07/14/24 08:39 DC Piperacillin Sod/ Tazobactam Sod (Zosyn 3.375gm+NS 50ml) 3.375 gm Q12H IV 07/12/24 05:00 07/12/24 04:51 DC Piperacillin Sod/ Tazobactam Sod (Zosyn 3.375gm+NS 50ml) 3.375 gm ZOSY8 IV 07/09/24 21:00 07/13/24 14:39 DC 07/13/24 12:51 3.375 GM Potassium Chloride 100 ml @ 50 mls/hr PROTOCOL IV 07/15/24 08:30 07/15/24 08:27 DC Potassium Chloride 100 ml @ 50 mls/hr PROTOCOL IV 07/16/24 09:30 07/19/24 08:57 DC 07/18/24 18:22 50 MLS/HR Potassium Chloride 100 ml @ 50 mls/hr PROTOCOL IV 07/18/24 11:00 07/19/24 08:58 DC 07/19/24 00:50 50 MLS/HR Potassium Chloride 100 ml @ 50 mls/hr PROTOCOL IV 07/18/24 16:00 08/17/24 15:59 Potassium Chloride 100 ml @ 50 mls/hr PROTOCOL IV 07/13/24 07:30 07/13/24 07:14 DC Potassium Chloride 100 ml @ 50 mls/hr PROTOCOL IV 07/13/24 11:00 07/13/24 07:14 DC Potassium Chloride 100 ml @ 50 mls/hr PROTOCOL IV 07/13/24 16:00 07/13/24 07:14 DC Quetiapine Fumarate (SEROquel 25 mg TAB) 50 mg HS PO 07/12/24 21:00 08/11/24 20:59 07/16/24 21:56 50 MG Sertraline HCl (ZOloft 50 mg tab) 150 mg DAILY PO 07/11/24 09:00 08/10/24 08:59 07/17/24 09:22 150 MG Simvastatin (zoCOR) 20 mg HS PO 07/12/24 21:00 08/11/24 20:59 07/16/24 21:57 20 MG Sodium Chloride 1,000 ml @ 500 mls/hr Q2H IV 07/09/24 17:34 07/10/24 01:15 DC 07/09/24 19:34 500 MLS/HR Spironolactone (Aldactone 25mg) 25 mg DAILY PO 07/12/24 09:00 07/12/24 04:49 DC Sucralfate (Carafate) 1 gm TID PO 07/12/24 09:00 08/11/24 08:59 07/17/24 13:06 1 GM Vitamin B Complex (Vitamin B-12) 1,000 mcg DAILY PO 07/12/24 09:00 08/11/24 08:59 07/17/24 09:21 1,000 MCG Physical Examination: GENERAL: [No acute distress.] HEAD: [Normal with no signs of head trauma.] EYES: [PERRLA, EOMI, conjunctiva and sclera normal.] ENT: [Hearing grossly intact, normal oropharynx.] NECK: [Supple without JVD. There is no tenderness, lymphadenopathy, or masses. No thyromegaly. Normal carotid upstrokes without bruits.] LUNGS: [Clear breath sounds bilaterally. There are right basilar rales one third of the way up the chest. No wheezes, or rhonchi.] HEART: [Normal rate and rhythm. Normal S1 and S2 without mumurs, gallop or rub.] VASC: [Peripheral pulses +2 bilaterally.] ABD: [Bowel sounds normal, soft, nontender, no masses, no organomegaly. No audible bruits.] : [Not examined] LYMPH: [No lymphadenopathy noted.] EXT: [No clubbing, cyanosis or edema.] SKIN: [No rashes or lesions noted.] NEURO: [Awake, alert, and oriented x3. No focal sensory or strength deficits noted.] Vital Signs (last 8hr) Date Time Temp Pulse Resp B/P (MAP) Pulse Ox O2 Delivery O2 Flow Rate FiO2 07/19/24 08:00 98.4 85 16 108/70 96 Room Air 07/19/24 07:00 96 Room Air* 0 21 07/19/24 06:45 71 18 07/19/24 06:44 71 20 N/A Room Air 21 07/19/24 04:04 99.0 86 18 114/66 96 Room Air Laboratory: [ ] Hematology Labs: Test 07/19/24 03:38 Range/Units White Blood Count 5.3 4.8-10.8 K/uL Red Blood Count 2.58 L 4.00-5.50 MIL/uL Hemoglobin 8.4 L 12.0-16.0 g/dL Hematocrit 26.2 L 36-48 % Mean Corpuscular Volume 101.6 H 79-99 fL Mean Corpuscular Hemoglobin 32.6 27.0-33.0 pg Mean Corpuscular Hemoglobin Concent 32.1 32.0-36.0 g/dL Red Cell Distribution Width 17.6 H 11.0-15.5 % Platelet Count 180 130-400 K/uL Mean Platelet Volume 10.6 H 7.5-10.5 fL Immature Granulocyte % (Auto) 0.4 0-1 % Neutrophils (%) (Auto) 68.1 40.0-77.0 % Lymphocytes (%) (Auto) 15.5 L 21.0-51.0 % Monocytes (%) (Auto) 11.7 3.0-13.0 % Eosinophils (%) (Auto) 3.4 0.0-8.0 % Basophils (%) (Auto) 0.9 0.0-5.0 % Neutrophils # (Auto) 3.6 1.8-7.7 K/uL Lymphocytes # (Auto) 0.8 L 1.0-4.8 K/uL Monocytes # (Auto) 0.6 0.1-1.0 K/uL Eosinophils # (Auto) 0.18 0.00-0.70 K/uL Basophils # (Auto) 0.05 0.00-0.20 K/uL Absolute Immature Granulocyte (auto 0.02 0-1 K/uL Nucleated Red Blood Cells 0.0 0.0-0.19 % Chemistry Labs: Test 07/19/24 05:30 07/19/24 03:38 Range/Units Whole Blood Glucose 99 70-110 MG/DL Sodium Level 137 136-145 mmol/L Potassium Level 3.8 3.5-5.1 mmol/L Chloride Level 108 101-111 mmol/L Carbon Dioxide Level 28 21-32 mmol/L Blood Urea Nitrogen 10 7-18 mg/dL Creatinine 0.2 L 0.5-1.0 mg/dL Glomerular Filtration Rate Calc 128 >90 mL/min Random Glucose 108 H 70-105 mg/dL Total Calcium 7.8 L 8.5-10.1 mg/dL Magnesium Level 1.70 L 1.80-2.40 mg/dL Total Bilirubin 0.2 0.2-1.0 mg/dL Aspartate Amino Transf (AST/SGOT) 21 10-37 U/L Alanine Aminotransferase (ALT/SGPT) 10 L 12-78 U/L Alkaline Phosphatase 64 50-136 U/L Total Protein 4.1 L 6.0-8.3 g/dL Albumin 0.9 L 3.5-5.0 g/dL Diagnostics / Radiology: [Copy/Paste Echos/Imaging Report here] Impression and Plan: Case discussed with Dr. Monroy and Dr. Messi Donovan Clinical presentation does not correlate with SBO Recommend to resume g tube feedings Will obtain upper gi series with oral contrast Friday MALA CHARLES DCS ENGINEER Jul 19, 2024 09:43
--- NOTE | 2024-07-19 11:24 | PN ---
[facility] PROGRESS NOTE Date of Service: Jul 19, 2024 Time of Service: 11:[address] Johnson 69-year-old female admitted with multifocal pneumonia and pleural effusion SUBJECTIVE: [ Hospital day 1. For 69-year-old female admitted with multifocal pneumonia and pericardial effusion. On further history with the patient as well as her spouse who is my patient at the [facility]. Patient has had problems with chronic esophageal and sounds like gastric strictures for the past six months. Patient has been seeing Dr. Ki Medina gastrointestinal specialist and Dr. Philip at the same group and has had multiple dilations including balloon dilation on about four or five occasions. Patient's weight has gone down from about just under 200 lb to less than 100 lb but she has recently gained about 27 lb back per her spouse. Patient has been in and out of the [facility] for rehab and [facility]. She had a complication and in esophageal tear that was a complication from too much pressure with a balloon dilator. I asked her if she bled significantly as she is on blood thinners but he has had no. Otherwise the patient states that she has had about a week's worth of a productive cough with brown phlegm no fevers or chi lls. Patient had a fall approximately six months ago in which a lot of her problems started. She has essentially been nonambulatory since this fall. Although when she was at the long term they did set her up and do gentle [id number] exercises and even short ambulation with the assistance patient has been bed- bound essentially. She had significant swelling to most of her body and was told this was from malnutrition that has been slowly improving over the last few weeks now that she is able to take by mouth. She has complicating factors in the sense that she fell and destroyed her implants and upper anchor for her dentures and so has had to have pureed food only 07/11/2024: No significant interval events reported by nursing staff. Patient reports no pain or shortness for breath. Her morning labs were reviewed 07/12/24 patient was seen by nurse practitioner and physician during rounding in room 230. Patient was comfortably lying in bed. Urine culture final negative. Blood culture 48 hours negative so far. Patient was evaluated by medical imaging specialist and was cleared for EGD. Patient was evaluated by Dr. Moon and EGD was perfo rmed, which showed benign appearing esophageal stenosis. And nonbleeding perforation was found in the esophagus. Afterwards we found out that patient belongs to Dr. Monroy so the care was change to other group of GI. Patient is pending possible esophagram was evaluated by other GI group. CT chest/abdomen showed aspiration pneumonia small pericardial effusion, small abdominal ascites and anasarca. 2D echo EF 60 65% stage I diastolic dysfunction large left pleural effusion. As per GI patient is not a candidate for PEG tube due to history of a bypass. Patient has bilateral lower extremity swelling we will order 20 mg of Lasix IV one dose only. We will do CBC, CMP and magnesium stat, as well we will repeat morning labs. Patient came from [facility] per family member at the bedside would like to return done once patient medically cleared. We will continue to monitor patient in the meantime. A.m. labs 07/13 patient was seen by nurse practitioner and physician during rounding in room 230. No family member at the bedside at this moment. Patient was evaluated by the lamp shade joiner and per chest x-ray no pneumothorax is visible. No chest needed at this moment. As per GI patient is pending esophagram with possible stent placement on Friday07/14/2024. Patient will receive 60 mEq of potassium in total for potassium of 2.6. Patient will also receive 2 g of magnesium for magnesium 1.6 today in a.m.. Today albumin is 1.0 patient will receive albumin as well. PT working with the patient. Final urine culture negative. Blood culture-48 hours. We will continue to monitor patient in the meantime. A.m. labs. 07/14 patient was seen by nurse practitioner and physician during rounding. Family member at the bedside was informed regards to further plan. Patient is pending esophagram with stent placement today. Once cleared the patient will be able to eat patient to be discharged to [facility]. Magnesium today 1.7 patient will receive 2 g of magnesium. We are pending morning lab results. RN instructed to cover potassium if low per protocol. We will continue to monitor patient in the meantime. A.m. labs. 07/15 patient was seen by nurse practitioner physician during rounding in room 210. Patient is s/p EGD with stent placement yesterday 07/14/[address] Monroy. Today patient is pending PEG tube placement. Nurse practitioner was able to talk to Toshia Reyes GRAIN PROCESSOR with GI group at 8:47 a.m. and after PEG tube placement . Patient's potassium today is 4.5. Albumin 1.0. Patient will receive 2 mg of albumin. Magnesium 1.6 patient received 2 g of magnesium. We will also repeat CBC due to drop of hemoglobin. Blood culture negative x5 days. Urine growing Pseudomonas aeruginosa PICC line placed for IV antibiotics. Patient will need Merrem for one week after discharge. We will continue to monitor patient in the meantime. A.m. labs.] 07/17 patient is seen and examined at bedside, no acute events overnight per discussion with the nurse taking care of the patient. Patient is status post PEG tube placement. CT chest and abdomen done yesterday there is free intraperitoneal air with small amount of ascites, contrast is seen within the stomach without diffuse extravasation, findings are suspicious for bowel perforation. Surgical consultation is recommended. Currently the patient is NPO, peg tube feeding has not been started. We will resume Clinimix. 07/18 patient was seen by nurse practitioner and physician during rounding in room 230. No family member at the bedside at this moment. Patient is pending bowel series on Friday07/19/2024 as ordered by the GI. Patient will receive two doses of 20 mEq of potassium in the meantime. Continue Clinimix. We will continue to monitor patient in the meantime. A.m. labs. 07/19 patient was seen by nurse practitioner and physician during rounding in room 230. Family members/ at the bedside. Patient is waiting for the upper GI bowel series that was ordered by the GI. As per GI case was discussed with Dr. Monroy and Dr. Mesis Donovan and clinical presentation does not correlate with small-bowel obstruction. They recommend to resume G-tube feedings but 1st they we will obtain the upper GI series with oral contrast. Nurse was instructed that after the test to ask the GI we will for sure we can resume the G-tube feedings and if patient could be discharged to [facility]. We will continue to monitor patient in the meantime. REVIEW OF SYSTEMS CONSTITUTIONAL: Denies fevers, chills, or night sweats. wt loss as described above of about 80lbs in 6 months NEUROLOGICAL: no n/t, no hx of strokes ENT: No hearing loss, otalgia, otorrhea, rhinitis, rhinorrhea, or sore throat.+very raspy voices CARDIOVASCULAR: Denies any exertional angina, dyspnea on exertion, orthopnea, paroxysmal nocturnal dyspnea, palpitations, life-threatening arrhythmias, gisela dication. GASTROINTESTINAL: See history of present illness, + esophageal stenosis and dysphagia for six months. Positive nausea and intermittent vomiting, regular bowel movements no diarrhea no bloody stools GENITOURINARY: Denies increased frequency, no urgency or pain with urination. Patient states he is continent to both bowel and bladder. ENDOCRINOLOGIC: Denies polyuria, polydipsia, polyphagia or heat/cold intolerances. HEMATOLOGIC: Patient did have a clot in her upper extremity a few months back. That resolved on its own per the patient's spouse, Cedrick. ONCOLOGIC: Denies personal history of malignancy. DERMATOLOGIC: Easy bruisability with multiple ecchymotic areas to the neck. PSYCHIATRIC: Denies any suicidal or homicidal ideation. Denies hallucinations. Positive depressive symptomatology because of health decline with the last six months. PHYSICAL EXAM GENERAL APPEARANCE: The patient is awake, alert, and oriented, in no acute cardiopulmonary distress. Very cachectic appearing 69-year-old female appearing much older than stated age NEUROLOGICAL: Cranial nerves II-XII grossly intact. Motor is 4+/5 in bilateral upper and lower extremities proximal to distal. No sensory deficits. HEENT: Face is symmetric. Pupils are equal and reactive. Extraocular movements are intact. TMs are pearly riley and external auditory canals are without infla mmation. NECK: Supple. No JVD. No thyromegaly. No submental, submandibular, pre-/postau ricular, occipital or supraclavicular lymphadenopathy. CHEST: Normal chest expansion. LUNGS: Bilateral rhonchi noted to the mid and lower lung adams, no wheezes or rales noted. CARDIOVASCULAR: Regular. S1 and S2 normal. No appreciable rubs, murmurs or gallops. ABDOMEN: Soft, nontender, and nondistended. There is no rebound, voluntary guarding, or rigidity. : Deferred. No Manuel. EXTREMITIES: Non-edematous and not cyanotic. No clubbing. Good capillary refill. Dorsalis pedis pulse present to the right foot left foot dorsalis pedis very slightly palpable but cap refill brisk posterior tibial pulses felt x2 SKIN: No skin breakdown. Vital Signs (last 8hr) Date Time Temp Pulse Resp B/P (MAP) Pulse Ox O2 Delivery O2 Flow Rate FiO2 07/19/24 08:00 98.4 85 16 108/70 96 Room Air 07/19/24 07:00 96 Room Air* 0 21 07/19/24 06:45 71 18 07/19/24 06:44 71 20 N/A Room Air 21 07/19/24 04:04 99.0 86 18 114/66 96 Room Air LABS: Laboratory: Test 07/19/24 05:30 07/19/24 03:38 Range/Units Whole Blood Glucose 99 70-110 MG/DL White Blood Count 5.3 4.8-10.8 K/uL Red Blood Count 2.58 L 4.00-5.50 MIL/uL Hemoglobin 8.4 L 12.0-16.0 g/dL Hematocrit 26.2 L 36-48 % Mean Corpuscular Volume 101.6 H 79-99 fL Mean Corpuscular Hemoglobin 32.6 27.0-33.0 pg Mean Corpuscular Hemoglobin Concent 32.1 32.0-36.0 g/dL Red Cell Distribution Width 17.6 H 11.0-15.5 % Platelet Count 180 130-400 K/uL Mean Platelet Volume 10.6 H 7.5-10.5 fL Immature Granulocyte % (Auto) 0.4 0-1 % Neutrophils (%) (Auto) 68.1 40.0-77.0 % Lymphocytes (%) (Auto) 15.5 L 21.0-51.0 % Monocytes (%) (Auto) 11.7 3.0-13.0 % Eosinophils (%) (Auto) 3.4 0.0-8.0 % Basophils (%) (Auto) 0.9 0.0-5.0 % Neutrophils # (Auto) 3.6 1.8-7.7 K/uL Lymphocytes # (Auto) 0.8 L 1.0-4.8 K/uL Monocytes # (Auto) 0.6 0.1-1.0 K/uL Eosinophils # (Auto) 0.18 0.00-0.70 K/uL Basophils # (Auto) 0.05 0.00-0.20 K/uL Absolute Immature Granulocyte (auto 0.02 0-1 K/uL Nucleated Red Blood Cells 0.0 0.0-0.19 % Sodium Level 137 136-145 mmol/L Potassium Level 3.8 3.5-5.1 mmol/L Chloride Level 108 101-111 mmol/L Carbon Dioxide Level 28 21-32 mmol/L Blood Urea Nitrogen 10 7-18 mg/dL Creatinine 0.2 L 0.5-1.0 mg/dL Glomerular Filtration Rate Calc 128 >90 mL/min Random Glucose 108 H 70-105 mg/dL Total Calcium 7.8 L 8.5-10.1 mg/dL Magnesium Level 1.70 L 1.80-2.40 mg/dL Total Bilirubin 0.2 0.2-1.0 mg/dL Aspartate Amino Transf (AST/SGOT) 21 10-37 U/L Alanine Aminotransferase (ALT/SGPT) 10 L 12-78 U/L Alkaline Phosphatase 64 50-136 U/L Total Protein 4.1 L 6.0-8.3 g/dL Albumin 0.9 L 3.5-5.0 g/dL Current Medications Medications (Trade) Dose Ordered Sig/Jennifer Route PRN Reason Start Time Stop Time Status Last Admin Dose Admin Acetaminophen (TYLenol 650MG SUPPOSITORY) 650 mg Q6H PRN RC MILD PAIN (1-3) 07/09/24 19:30 08/08/24 19:29 Albumin Human 50 ml @ 0 mls/hr AD IV 07/13/24 07:30 07/13/24 07:17 DC Albumin Human 100 ml @ 0 mls/hr AD IV 07/15/24 08:30 07/16/24 08:29 DC Albuterol (DUOneb) 1 UDVIAL [id number] IH 07/10/24 00:00 08/09/24 00:00 07/19/24 06:41 1 UDVIAL Bacitracin (Bacitracin 28.4gm) apply to left calf and l... DAILY TP 07/17/24 09:00 08/16/24 08:59 07/19/24 08:12 28.4 GM Bisacodyl (DulcoLAX 5MG TAB) 5 mg AM PO 07/12/24 09:00 08/11/24 08:59 07/17/24 09:21 5 MG Ceftazidime (ForTAZ/TAZidime) 2 gm Q8H IVPB 07/13/24 15:00 07/13/24 15:06 DC Ceftriaxone Sodium (ROCEphine 1G INJ) 1 gm ONCE IVPB 07/09/24 19:19 07/09/24 23:59 DC 07/09/24 19:19 1 GM Dextrose (D50w) 50 ml AD PRN IV HYPOGLYCEMIA PROTOCOL 07/15/24 14:30 07/16/24 11:38 DC Dextrose (D50w) 50 ml AD PRN IV HYPOGLYCEMIA PROTOCOL 07/16/24 12:00 07/18/24 10:51 DC 07/16/24 20:07 50 ML Dextrose (D50w) 50 ml AD PRN IV HYPOGLYCEMIA PROTOCOL 07/18/24 11:00 08/17/24 10:59 Dextrose (D50w) 50 ml AD PRN IV HYPOGLYCEMIA PROTOCOL 07/13/24 06:00 07/15/24 14:09 DC 07/14/24 11:32 50 ML Dextrose (D50w) 50 ml AD PRN IV HYPOGLYCEMIA PROTOCOL 07/13/24 06:30 07/13/24 06:11 DC Dextrose/Lactated Ringer's 1,000 ml @ 50 mls/hr Q20H IV 07/11/24 20:00 08/10/24 19:59 07/18/24 13:41 50 MLS/HR Doxycycline Hyclate 250 ml @ 125 mls/hr Q12H IV 07/12/24 05:00 07/14/24 08:05 DC 07/14/24 05:12 125 MLS/HR Enoxaparin Sodium (Lovenox) 40 mg DAILY SQ 07/10/24 09:00 07/10/24 19:01 DC 07/10/24 10:15 40 MG Ergocalciferol (Drisdol) 1,250 unit AM PO 07/12/24 09:00 07/12/24 07:47 DC Famotidine (Pepcid 20mg Vial) 20 mg DAILY IV 07/10/24 09:00 07/12/24 07:38 DC 07/11/24 09:00 20 MG Fludrocortisone Acetate (Fludrocortisone Acetate) 0.1 mg DAILY PO 07/12/24 09:00 08/11/24 08:59 07/17/24 09:22 0.1 MG Furosemide (LASix 20MG TAB) 20 mg DAILY PO 07/12/24 09:00 07/12/24 04:49 DC Glucagon (Glucagon 1mg Kit) 1 mg AD PRN IM HYPOGLYCEMIA PROTOCOL 07/15/24 14:30 07/16/24 11:38 DC Glucagon (Glucagon 1mg Kit) 1 mg AD PRN IM HYPOGLYCEMIA PROTOCOL 07/16/24 12:00 07/18/24 10:51 DC Glucagon (Glucagon 1mg Kit) 1 mg AD PRN IM HYPOGLYCEMIA PROTOCOL 07/18/24 11:00 08/17/24 10:59 Glucagon (Glucagon 1mg Kit) 1 mg AD PRN IM HYPOGLYCEMIA PROTOCOL 07/13/24 06:00 07/15/24 14:09 DC Glucagon (Glucagon 1mg Kit) 1 mg AD PRN IM HYPOGLYCEMIA PROTOCOL 07/13/24 06:30 07/13/24 06:11 DC Home Med (Home Medication) (Folic Acid 1 CAP) DAILY PO 07/12/24 09:00 08/11/24 08:59 Home Med (Home Medication) ([Azasan] 50 MG) AM PO 07/12/24 09:00 08/11/24 08:59 Hydralazine HCl (APRESOLine 20MG INJ) 10 mg Q6H PRN IV For:SBP above 160;DBP above 90 07/09/24 19:30 08/08/24 19:29 Insulin Human Regular (humuLIN R 100 UNIT/ML 3ML) INSULIN SLIDING SCAL... ACHS SQ 07/15/24 16:30 07/16/24 11:38 DC Insulin Human Regular (humuLIN R 100 UNIT/ML 3ML) INSULIN SLIDING SCAL... ACHS SQ 07/16/24 16:30 07/18/24 10:51 DC Insulin Human Regular (humuLIN R 100 UNIT/ML 3ML) INSULIN SLIDING SCAL... ACHS SQ 07/18/24 11:30 08/17/24 11:29 Lactated Ringer's 1,000 ml @ 75 mls/hr [id number] IV 07/09/24 19:30 07/11/24 19:49 DC 07/10/24 21:39 75 MLS/HR Levothyroxine Sodium (SYNTHroid 50MCG TAB) 50 mcg SYN PO 07/13/24 06:30 08/12/24 06:29 07/17/24 06:03 50 MCG Loratadine (LORATAdine 10 mg) 10 mg DAILY PO 07/12/24 09:00 08/11/24 08:59 07/17/24 09:21 10 MG Magnesium Sulfate 50 ml @ 0 mls/hr PROTOCOL IV 07/19/24 09:30 07/19/24 09:32 DC Magnesium Sulfate 50 ml @ 0 mls/hr PROTOCOL IV 07/13/24 07:30 07/13/24 07:14 DC Magnesium Sulfate 50 ml @ 0 mls/hr PROTOCOL PRN IV other 07/15/24 14:30 07/16/24 11:40 DC Magnesium Sulfate 50 ml @ 0 mls/hr PROTOCOL PRN IV other 07/16/24 12:00 07/19/24 08:58 DC 07/19/24 05:23 20 MLS/HR Magnesium Sulfate 50 ml @ 0 mls/hr PROTOCOL PRN IV other 07/18/24 11:00 08/17/24 10:59 Magnesium Sulfate 50 ml @ 0 mls/hr PROTOCOL PRN IV MAGNESIUM PROTOCOL 07/13/24 06:00 07/15/24 14:07 DC 07/15/24 06:07 25 MLS/HR Meropenem (Merrem 1gm) 1 gm Q8H IVPB 07/13/24 16:00 07/14/24 16:54 DC 07/14/24 11:32 1 GM Meropenem (Merrem 1gm) 1 gm Q8H IVPB 07/14/24 20:00 07/24/24 19:59 07/19/24 03:31 1 GM Metronidazole/ Sodium Chloride 100 ml @ 100 mls/hr Q8H6 IVPB 07/13/24 22:00 07/13/24 15:06 DC Midodrine (PROAMatine 5 MG TABLET) 5 mg TID PO 07/12/24 09:00 08/11/24 08:59 07/17/24 13:06 5 MG Miscellaneous Medication (Esomeprazole Magnesium ) 1 cap DAILY PO 07/12/24 09:00 07/12/24 07:38 DC Miscellaneous Medication (Famotidine ) 1 tab DAILY PO 07/12/24 09:00 07/12/24 07:38 DC Miscellaneous Medication (Ondansetron HCl ) 1 tab TID PO 07/12/24 09:00 07/12/24 07:47 DC Miscellaneous Medication (Sertraline HCl ) 1 tab DAILY PO 07/12/24 09:00 07/12/24 07:41 DC Montelukast Sodium (SinguLAIR) 10 mg DAILY PO 07/12/24 09:00 08/11/24 08:59 07/17/24 09:21 10 MG Morphine Sulfate (morPHINE 2MG SYG) 2 mg Q4H PRN IVP SEVERE PAIN (7-10) 07/16/24 05:30 07/23/24 05:29 07/19/24 06:32 2 MG Morphine Sulfate (morPHINE 2MG SYG) 2 mg Q4H PRN IVP SEVERE PAIN (7-10) 07/10/24 19:30 07/15/24 22:29 DC 07/13/24 21:13 2 MG Morphine Sulfate (morPHINE 4MG SYG) 2 mg Q4H PRN IVP SEVERE PAIN (7-10) 07/09/24 19:30 07/10/24 19:01 DC Ondansetron HCl (zoFRAN 4MG INJ) 4 mg Q6H PRN IV NAUSEA/VOMITING 07/09/24 19:30 08/08/24 19:29 Pantoprazole Sodium (PROTonix 40MG INJ) 40 mg BID IVP 07/14/24 21:00 08/13/24 20:59 07/18/24 20:03 40 MG Pantoprazole Sodium (PROTonix 40MG INJ) 40 mg DAILY IVP 07/14/24 09:00 07/15/24 07:56 DC 07/14/24 11:38 40 MG Pantoprazole Sodium (PROTonix 40MG TAB) 40 mg DAILY PO 07/12/24 09:00 07/14/24 08:39 DC Piperacillin Sod/ Tazobactam Sod (Zosyn 3.375gm+NS 50ml) 3.375 gm Q12H IV 07/12/24 05:00 07/12/24 04:51 DC Piperacillin Sod/ Tazobactam Sod (Zosyn 3.375gm+NS 50ml) 3.375 gm ZOSY8 IV 07/09/24 21:00 07/13/24 14:39 DC 07/13/24 12:51 3.375 GM Potassium Chloride 100 ml @ 50 mls/hr AD PRN IV POTASSIUM PROTOCOL 07/13/24 06:30 07/15/24 14:07 DC 07/15/24 04:59 50 MLS/HR Potassium Chloride 100 ml @ 50 mls/hr PROTOCOL IV 07/15/24 08:30 07/15/24 08:27 DC Potassium Chloride 100 ml @ 50 mls/hr PROTOCOL IV 07/16/24 09:30 07/19/24 08:57 DC 07/18/24 18:22 50 MLS/HR Potassium Chloride 100 ml @ 50 mls/hr PROTOCOL IV 07/18/24 11:00 07/19/24 08:58 DC 07/19/24 00:50 50 MLS/HR Potassium Chloride 100 ml @ 50 mls/hr PROTOCOL IV 07/18/24 16:00 08/17/24 15:59 Potassium Chloride 100 ml @ 50 mls/hr PROTOCOL IV 07/13/24 07:30 07/13/24 07:14 DC Potassium Chloride 100 ml @ 50 mls/hr PROTOCOL IV 07/13/24 11:00 07/13/24 07:14 DC Potassium Chloride 100 ml @ 50 mls/hr PROTOCOL IV 07/13/24 16:00 07/13/24 07:14 DC Potassium Chloride 100 ml @ 100 mls/hr AD PRN IV POTASSIUM PROTOCOL 07/15/24 14:30 07/16/24 09:18 DC 07/16/24 04:42 100 MLS/HR Potassium Chloride 100 ml @ 100 mls/hr AD PRN IV POTASSIUM PROTOCOL 07/16/24 09:30 07/19/24 08:58 DC Potassium Chloride 100 ml @ 100 mls/hr AD PRN IV POTASSIUM PROTOCOL 07/18/24 11:00 08/17/24 10:59 Potassium Chloride (K-Dur 10meq Sr Tab) 10 meq AD PRN PO POTASSIUM PROTOCOL 07/19/24 09:00 08/17/24 10:59 Potassium Chloride (K-Dur/Klor-Con 20meq) 10 meq AD PRN PO POTASSIUM PROTOCOL 07/15/24 14:30 07/16/24 11:38 DC Potassium Chloride (K-Dur/Klor-Con 20meq) 10 meq AD PRN PO POTASSIUM PROTOCOL 07/18/24 11:00 07/19/24 08:59 DC Potassium Chloride (KCl 10% Elixir 20meq/15ml) 10 meq AD PRN PO POTASSIUM PROTOCOL 07/15/24 14:30 07/16/24 11:38 DC Potassium Chloride (KCl 10% Elixir 20meq/15ml) 10 meq AD PRN PO POTASSIUM PROTOCOL 07/18/24 11:00 08/17/24 10:59 Quetiapine Fumarate (SEROquel 25 mg TAB) 50 mg HS PO 07/12/24 21:00 08/11/24 20:59 07/16/24 21:56 50 MG Sertraline HCl (ZOloft 50 mg tab) 150 mg DAILY PO 07/11/24 09:00 08/10/24 08:59 07/17/24 09:22 150 MG Simvastatin (zoCOR) 20 mg HS PO 07/12/24 21:00 08/11/24 20:59 07/16/24 21:57 20 MG Sodium Chloride 1,000 ml @ 500 mls/hr Q2H IV 07/09/24 17:34 07/10/24 01:15 DC 07/09/24 19:34 500 MLS/HR Spironolactone (Aldactone 25mg) 25 mg DAILY PO 07/12/24 09:00 07/12/24 04:49 DC Sucralfate (Carafate) 1 gm TID PO 07/12/24 09:00 08/11/24 08:59 07/17/24 13:06 1 GM Vitamin B Complex (Vitamin B-12) 1,000 mcg DAILY PO 07/12/24 09:00 08/11/24 08:59 07/17/24 09:21 1,000 MCG DIAGNOSTICS / RADIOLOGY: [ ] ASSESSMENT: [1. Left upper and lower lobe aspiration pneumonia POA 2 small pericardial effusion per 2D echo POA 3. Uncontrolled Hypertension POA 4. Hyperlipidemia POA 5. History of anasarca POA 6. Severe protein calorie malnutrition POA 7. Bed-bound x6 months POA 8. Depression likely adjustment reaction to severe health decline over the last six months POA 9. Leukopenia POA 10. History of orthostatic hypotension POA 11. Esophageal stricture history 12. S/p EGD with stent placement 07/14/2024 s/p PEG tube placement 07/15/24 s/p stent removal due to displacement 07/16/2024 13. hypothyroidism POA 14. Macrocytic anemia, POA 15. B12 deficiency on oral replacement POA Perforation of esophagus per CT abdomen/pelvis POA Esophageal dysfunction per CT abdomen/chest POA Acute on chronic diastolic heart failure 2D echo EF 60 65% stage I diastolic dysfunction Acute complicated cystitis POA Pseudomonas aeruginosa urine culture ] Possible perforated bowel PLAN: The patient remains admitted to the PCU Continue the patient on campus monitor Hold feeding through the PEG tube until evaluated by General surgery, we will follow input and recommendation. Continue to follow GI input and recommendation. Pending upper GI series NEURO: Minimize central acting medications as possible. Fall Precautions. Well lighted room through the day and minimize interruptions through the night to prevent acute delirium. PULMONARY: Supplemental 02 as needed BiPAP as necessary, for respiratory distress Titrate Fio2 to keep Spo2 > or = 90% DuoNebs and CPT as needed IS hourly while awake for pulmonary hygiene prn Out of bed to chair as tolerated Maintain aspiration precautions at all times CARDIOVASCULAR: Follow hemodynamics. Vital signs per facility protocol GI & NUTRITION: CT abdomen/chest free intraperitoneal air with small amount of ascites. Contrast is seen within the stomach without diffuse extravasation. Findings suggestive of bowel perforation correlation is recommended. Surgical consultation recommended. Patient receive two doses of 20 mEq of potassium through IV Continue nutritional support Aspirations precautions Prokinetic agents and laxatives as needed KIDNEYS & ELECTROLYTES: Strict monitoring of intake and output Daily weights Avoid nephrotoxic agents Monitor electrolytes and replace as needed Goal urine output of 30mL/hr or 0.5mL/kg/hr Medications to be dosed according to renal function. Avoid contrast if possible ENDOCRINE: Maintain blood glucose between 100-180 at all times. Insulin sliding scale for blood glucose management Hypoglycemia and hyperglycemia protocol in place INFECTIOUS DISEASE: Trend temperature, WBC and procalcitonin level Follow cultures, deescalate antibiotics as soon as possible. Panculture if new onset fever HEMATOLOGY & COAGULATION: Monitor H&H. Keep Hgb > 7 Transfuse 1 unit of PRBC for Hgb < 7 Transfuse 1 pack of platelets of platelets < 20, 000 Watch for any signs and symptoms of bleeding SKIN: Pressure ulcer prevention per facility protocol Specialty mattress as needed ORTHO/REHAB Continue PT/OT PRN: MEDICATIONS Tylenol 650 mg po every 4 hrs for fever zofran 4 mg IV every 6 hrs for n/v Hydralazine 5 mg IV every 4 hrs systolic pressure > 160 bowel regiment: lactulose 20 gm PO BID PRN constipation Supportive measures: Continue GI and DVT prophylaxis Disposition: Pending Improvement in clinical condition All questions answered time spent: > 35 min ATTESTATION BY PHYSICIAN I have seen and examined the patient. I reviewed the documentation, medical decision making, and treatment plan as noted by the mid-level provider above. I agree with the findings and plan of care. LELE JOHNSON MD, [employer] Jul 19, 2024 11:24
[2024-07-19] MEDS ORDERED: PoTASSium chloRIDE 10MEQ/100ML 100 ML IV PRN (11:30)
[2024-07-19] MEDS ORDERED: MAGNESIUM 2GM PREMIX 50ML 50 ML IV PRN (11:30)
[2024-07-19] MEDS: INSULIN humuLIN R 100 UNIT/ML 3ML SQ SCH (11:30)
[2024-07-19] MEDS ORDERED: GLUCAGON 1MG KIT 1 MG ML IM PRN (11:30)
[2024-07-19] MEDS ORDERED: DEXTROSE 50%-WATER 50 ML DISP.SYRIN IV PRN (11:30)
[2024-07-19] MEDS ORDERED: PoTASSium chloRIDE 20MEQ ER 20 MEQ ERTAB PO PRN (11:30)
[2024-07-19] MEDS ORDERED: PoTASSium chl 10% ELIXIR 20MEQ 20 MEQ/15 ML UDCUP PO PRN (11:30)
[2024-07-19] MEDS ORDERED: DIATR MEGLU/DIATRIZOATE SODIUM 30 ML BOTTLE ONE (12:07)
--- NOTE | 2024-07-19 12:20 | HMCIMG ---
Upper GI series and SMALL BOWEL FOLLOW-THROUGH History: oral gastrograffin to eval esophageal leak and sbo Comparison: none Contrast: Dilute Gastrografin solution TECHNIQUE: EXAMINATION IS DONE UNDER RADIOGRAPHIC CONTROL. FINDINGS: Status post bariatric surgery with partial gastrectomy and gastrojejunostomy. The anastomosis is patent. There is no extravasation of contrast to suggest esophageal rupture or leakage. The examination is unremarkable otherwise. There is no evidence of inflammatory disease to suggest ulcer. The duodenal bulb and sweep are unremarkable. There is no evidence of malrotation. The ligament of Treitz is in its expected location. The entire small bowel appears unremarkable. No obstruction is seen. No intraluminal lesions are noted. There is no dilatation of lumen. The terminal ileum is at its usual location, and there is adequate emptying into the proximal colon. IMPRESSION: No extravasation to suggest esophageal rupture or leakage. Normal SMALL BOWEL FOLLOW-THROUGH.
--- NOTE | 2024-07-19 13:39 | DS ---
Discharge Summary Hospital Course Summary: DATE OF ADMISSION:[07/09/24] DATE OF DISCHARGE:[07/19/24] DISPOSITION:[[facility]] CONDITION:[medically cleared] CONSULTANTS:[gi, bis] FOLLOW UP APPOINTMENTS:[Follow up with PCP in 2 to 3 days, GI within 1 week and BIS within 1 week] PROCEDURES:[EGD when stent placement 07/14/2024, peg tube placement 07/16/2019, stent removal due to displacement 07/16/2024] IMAGING: report attached to summary MICROBIOLOGY: report attached to summary ACTIVITY:[Bed-bound] HOME MEDICATIONS: see med recc NEW MEDICATIONS:[See med rec] EMERGENCY INSTRUCTIONS: The patient was instructed to present to the nearest Emergency departmentr or call 911 once their symptoms will return or worsen Yard Jacker(s): Ms. Slade is a 69-year-old female who is seen and examined today on 07/09/2024. Patient is a good historian of personal health. Patient states he came to the emergency department, "my esophageal stricture is block and I needed open again."Patient states two days ago he started having difficulty swallowing. Patient went to see her vehicle sales professional today and was told she should go to the emergency department. Throughout the hospitalization CT chest/abdomen was performed and showed left upper lobe lingual and left lower lobe atelectasis evolving pneumonia likely aspiration, non typical right lung pneumonia, very small pericardial effusion, ascites, anasarca moderate, distal colon diverticulosis and moderate stool burden. 2D echo showed LVEF 60 65% stage I diastolic dysfunction and large left-sided pleural effusion. Chest x-ray showed improvement in the infiltrate left side when compared to prior exam. Patient underwent EGD with stent placement on 07/14/2024dr Porfirio, then PEG tube placement on 07/15/[address] Armendariz followed by same stent removal on 07/16/2024 due to migrated esophageal stent projects over the left mid abdomen but perhaps within the stomach. cT CHEST ABD was performed and showed suspicius for SBO. Upper GI Series were p erformed and was negative. Nurse practitioner was able to talk to [employer]LE [employer]INCIPAL Toshia Reyes and per conversation patient is cleared to be discharged home today after procedure. Restart PEG tube feedings. Per GI follow-up dietary recommendations outpatient. Patient is cleared to be discharged back to [facility]. Follow up with PCP 2 to 3 days. Follow up with GI within one week. Follow up with BIS within one week. Assessment/Plan: ASSESSMENT: [1. Left upper and lower lobe aspiration pneumonia POA 2 small pericardial effusion per 2D echo POA 3. Uncontrolled Hypertension POA 4. Hyperlipidemia POA 5. History of anasarca POA 6. Severe protein calorie malnutrition POA 7. Bed-bound x6 months POA 8. Depression likely adjustment reaction to severe health decline over the last six months POA 9. Leukopenia POA 10. History of orthostatic hypotension POA 11. Esophageal stricture history 12. S/p EGD with stent placement 07/14/2024 s/p PEG tube placement 07/15/24 s/p stent removal due to displacement 07/16/2024 13. hypothyroidism POA 14. Macrocytic anemia, POA 15. B12 deficiency on oral replacement POA Perforation of esophagus per CT abdomen/pelvis POA Esophageal dysfunction per CT abdomen/chest POA Acute on chronic diastolic heart failure 2D echo EF 60 65% stage I diastolic dysfunction Acute complicated cystitis POA Pseudomonas aeruginosa urine culture ] Possible perforated bowel Home Medications: Reported Medications Montelukast Sodium (Montelukast Sodium) 10 Mg Tablet, 1 TAB PO DAILY for 30 Days, #30 TAB 0 Refills 05/04/24 Loratadine (Loratadine) 10 Mg Tablet, 1 TAB PO DAILY for allergy symptoms for 30 Days, #30 TAB 0 Refills 05/04/24 Megestrol Acetate (Megestrol Acetate) 400 Mg/10 Ml (40 Mg/Ml) Oral.susp, 10 ML PO DAILY for 30 Days, #300 ML 0 Refills 05/04/24 Fludrocortisone Acetate (Fludrocortisone Acetate) 0.1 Mg Tablet, 1 TAB PO DAILY for 30 Days, #30 TAB 0 Refills 05/04/24 Midodrine HCl (Midodrine HCl) 5 Mg Tablet, 1 TAB PO TID for 30 Days, #90 TAB 0 Refills 05/04/24 Sucralfate (Sucralfate) 1 Gram Tablet, 1 TAB PO TID for 30 Days, #90 TAB 0 Refills 05/04/24 Quetiapine Fumarate (Seroquel) 50 Mg Tablet, 1 TAB PO HS for 30 Days, #30 TAB 0 Refills 05/04/24 Esomeprazole Magnesium (Esomeprazole Magnesium) 40 Mg Capsule.dr, 1 CAP PO DAILY for 30 Days, #30 CAP 0 Refills 05/04/24 Ergocalciferol (Vitamin D2) (Vitamin D2) 1,250 Mcg (63889 Unit) Capsule, 1250 MCG PO AM, CAP 05/04/24 Simvastatin (Simvastatin) 20 Mg Tablet, 20 MG PO AM, TAB 05/04/24 Bisacodyl (Bisacodyl) 5 Mg Tablet.dr, 5 MG PO AM, TAB 05/04/24 Lansoprazole (Lansoprazole) 30 Mg Capsule.dr, 30 MG PO BID, CAP 05/04/24 Sertraline HCl (Sertraline HCl) 100 Mg Tablet, 1 TAB PO DAILY for 30 Days, #30 TAB 0 Refills 05/04/24 Folic Acid (Folic Acid) 0.8 Mg Capsule, 1 CAP PO DAILY for 30 Days, #30 CAP 0 Refills 05/04/24 Cyanocobalamin (Vitamin B-12) (B-12) 1,000 Mcg Tablet, 1 TAB PO DAILY for 30 Days, #30 TAB 0 Refills 05/04/24 Apixaban (Eliquis) 5 Mg Tablet, 1 TAB PO BID for 30 Days, #60 TAB 0 Refills 05/04/24 Levothyroxine Sodium (Levothyroxine) 50 Mcg Capsule, 1 CAP PO DAILY for 30 Days, #30 CAP 0 Refills 05/04/24 Ondansetron HCl (Ondansetron HCl) 8 Mg Tablet, 1 TAB PO TID for nausea/vomiting for 10 Days, #30 TAB 0 Refills 05/04/24 Famotidine (Famotidine) 40 Mg Tablet, 1 TAB PO DAILY for 30 Days, #30 TAB 0 Refills 05/04/24 [Azasan] No Conflict Check, 50 MG PO AM 05/04/24 Discontinued Reported Medications Promethazine HCl (Promethazine HCl) 25 Mg Tablet, 1 TAB PO Q6HPRN PRN for nausea/vomiting for 7 Days, #28 TAB 0 Refills 05/04/24 Potassium Chloride (Klor-Con 10) 10 Meq Tablet.er, 1 TAB PO DAILY for 30 Days, #30 TAB 0 Refills 05/04/24 Time spent arranging discharge: 31-60 minutes ATTESTATION BY PHYSICIAN I have seen and examined the patient. I reviewed the documentation, medical decision making, and treatment plan as noted by the mid-level provider above. I agree with the findings and plan of care. LELE GALEANO MD, KATARZYNA B APPLICATION PERFORMANCE ENGINEER Jul 19, 2024 13:39
--- NOTE | 2024-07-19 14:28 | NUR ---
Nutrition f/u Reviewed labs, notes, and medications. Mg 1.70(L), Ca 7.8(L), sedated, NPO, IV fluids, D5W 50 ml/hr Q20H per chart review. Pt to be d/c to [facility], to start PEG tube, wt via bed scale, on Glucerna 1.5 bolus, no ulcers, moderate pitting, last BM 07/17/24 per nursing. D5W 50 ml/hr Q20H provides: 170 kcals, 50 gm cho. PEG tube recs to meet Pt's needs. If residual >500 ml stop TF for 2 hours and then restart if residual continues to be >500 ml stop TF and notify MD. Due to Pt's hx of gastric bypass glucerna is appropriate since it has less CHO, monitor TF tolerance. Recommendations: -Provide Glucerna 1.5 @ 50 ml/hr x 22 hrs + 200 Q4H Provides: 1650 kcals, 91 gm pro, 2034 ml per day -If bolus provide: 4 1/2 cans of Glucerna 1.5 (times: 0900,1400, 1900, 0000) 30 ml before and after each feed if medically feasible -Monitor BM -If no BM >3 days consider stool softener -Monitor electrolytes -Replenish electrolytes per protocol -Monitor wts -Reweigh as able -Monitor b-vitamins, vit. D, iron and calcium results due to Pt's hx of gastric bypass -Provide MVI QD -Recommend Pt to follow up with PCP -Monitor TF tolerance + need for TF adjustment -Monitor goals of care RD to follow + available for consult per protocol Addendum: 07/19/24 at [address] Amended: Links added.
--- NOTE | 2024-07-19 16:47 | PN ---
[facility] PROGRESS NOTE Date Patient Seen: Jul 19, 2024 Time of Visit: 16:47 Supervising Physician: Dr. Torres Primary Care Physician: [CATALYST] Outpatient Specialists: [ ] Inpatient Consults: [BIS] PROBLEM LIST: Esophageal tear s/p EGD and stent placement. 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 She is in no apparent distress. She is currently recieving TPN via PICC line. She is s/p EGD with esophageal stent placement by Dr Monroy yesterday . She is pending Gtube placement today per DR Armendariz. She denies any pain or shortness of breath. She reports no nausea or vomiting. She is more alert than previous days and reports she is feeling well. not at bedside today. Labs unremarkable. Electrolytes to be replaced per protocols. 07/16/2024: At the time of my evaluation, the patient was lying in bed. Patient had no new complaint. Vital signs today were stable. Laboratory data today notable for low H&H 8.9/28.5 and a platelet count of 205. Chemistry panel was notable for a potassium of 3.1. CT imaging of the chest and abdomen showed free intraperitoneal air with small amount of ascites. Contrast was seen within the stomach without diffuse extravasation, this raised concern for bowel perforation. The patient continues on antibiotic therapy with IV Merrem and is so far tolerating well. The staff nurse reports no acute events otherwise. No other complaint. 07/27/2024: At the time of my evaluation, the patient was lying in bed. The staff nurse reports no acute events overnight. Vital signs obtained are generally stable. Laboratory data today showed improved H&H 9.1/29.2 and a platelet count of 206. Chemistry panel was a generally stable. No new imaging for review today. CT abdomen obtained yesterday, showed free intraperitoneal air with small amount of ascites. Contrast was seen within the stomach without diffuse extravasation. Findings are suspicious for bowel perforation and clinical correlation is recommended. Surgical consultation is recommended. No other complaint. 07/18/2024: At the time of my evaluation, the patient is lying in bed. She is minimally interactive and remains on room air. Spouse is present at the bedside. On the monitor, the patient is hemodynamically stable. Laboratory data today showed WBC 4.5, H&H 0.4/27.9 and a platelet count of 177. Chemistry panel was notable for potassium of 3.2. No new imaging for review today. Currsahara urena, the patient remains on TPN for nutritional support and is pending General surgery's consultation. She continues on antibiotic therapy with IV Merrem. No other complaint. REVIEW OF SYSTEMS: 12 point ROS reviewed with patient. Pertinent positives mentioned above. Otherwise negative. PHYSICAL EXAM: GENERAL: alert, weak, awake oriented x 3, moderate to severe scoliosis HEENT: EOMI, Sclera non icteric, moist mucosa NECK: Supple, no JVD, trachea midline LUNGS: Clear breath sounds bilaterally. No wheezes HEART: Regular rate and rhythm. Normal S1 and S2, without murmurs ABD: Abdomen soft, nontender. Bowel sounds present EXT: No clubbing cyanosis or edema NEURO: Alert and oriented to person, follows commands Vital Signs (last 8hr) Date Time Temp Pulse Resp B/P (MAP) Pulse Ox O2 Delivery O2 Flow Rate FiO2 07/19/24 12:00 Room Air LABS: Hematology Labs: Test 07/19/24 03:38 Range/Units White Blood Count 5.3 4.8-10.8 K/uL Red Blood Count 2.58 L 4.00-5.50 MIL/uL Hemoglobin 8.4 L 12.0-16.0 g/dL Hematocrit 26.2 L 36-48 % Mean Corpuscular Volume 101.6 H 79-99 fL Mean Corpuscular Hemoglobin 32.6 27.0-33.0 pg Mean Corpuscular Hemoglobin Concent 32.1 32.0-36.0 g/dL Red Cell Distribution Width 17.6 H 11.0-15.5 % Platelet Count 180 130-400 K/uL Mean Platelet Volume 10.6 H 7.5-10.5 fL Immature Granulocyte % (Auto) 0.4 0-1 % Neutrophils (%) (Auto) 68.1 40.0-77.0 % Lymphocytes (%) (Auto) 15.5 L 21.0-51.0 % Monocytes (%) (Auto) 11.7 3.0-13.0 % Eosinophils (%) (Auto) 3.4 0.0-8.0 % Basophils (%) (Auto) 0.9 0.0-5.0 % Neutrophils # (Auto) 3.6 1.8-7.7 K/uL Lymphocytes # (Auto) 0.8 L 1.0-4.8 K/uL Monocytes # (Auto) 0.6 0.1-1.0 K/uL Eosinophils # (Auto) 0.18 0.00-0.70 K/uL Basophils # (Auto) 0.05 0.00-0.20 K/uL Absolute Immature Granulocyte (auto 0.02 0-1 K/uL Nucleated Red Blood Cells 0.0 0.0-0.19 % Chemistry Labs: Test 07/19/24 12:18 07/19/24 03:38 Range/Units Whole Blood Glucose 82 70-110 MG/DL Sodium Level 137 136-145 mmol/L Potassium Level 3.8 3.5-5.1 mmol/L Chloride Level 108 101-111 mmol/L Carbon Dioxide Level 28 21-32 mmol/L Blood Urea Nitrogen 10 7-18 mg/dL Creatinine 0.2 L 0.5-1.0 mg/dL Glomerular Filtration Rate Calc 128 >90 mL/min Random Glucose 108 H 70-105 mg/dL Total Calcium 7.8 L 8.5-10.1 mg/dL Magnesium Level 1.70 L 1.80-2.40 mg/dL Total Bilirubin 0.2 0.2-1.0 mg/dL Aspartate Amino Transf (AST/SGOT) 21 10-37 U/L Alanine Aminotransferase (ALT/SGPT) 10 L 12-78 U/L Alkaline Phosphatase 64 50-136 U/L Total Protein 4.1 L 6.0-8.3 g/dL Albumin 0.9 L 3.5-5.0 g/dL DIAGNOSTICS / RADIOLOGY RESULTS: [ ] PLAN planned gtube placement for today. continue TPN until ok to use gtube, continue iv abx with meropenem. Pending sputum culture, order procalcitonin Consider initiating lasix and spironolactone once able to tolerate oral diet Conservative management and monitoring of pleural effusion GI for management of esophageal stricture Disposition per primary 07/16/2024: For now, going to continue current management for the patient. We are going to follow the recommendation of the treating specialist. The patient will continue antibiotic therapy as ordered. We will repeat surveillance labs in the morning. We will continue replacing the electrolyte deficit per the protocol. We will continue to provide general supportive care, GI and DVT prophylaxis. Further orders per attending MD and hospital course. 07/17/2024: For now, going to continue current management for the patient. We will discontinue the enteral feedings and we will probably switch the patient back to TPN. We will follow the recommendation of the primary team. Based on the patient's current condition she may benefit from palliative /hospice care. We will need to discuss the the goals of end of life care with risk control field representative republican. We will monitor the patient's progress and response to management. Follow recommendation of treating specialist. Further orders per attending MD and hospital course. 07/18/2024: For now, going to continue current management for the patient. She will continue on antibiotic therapy as ordered and we will follow the WBC trend. For nutritional support, the patient will remain on Clinimix and keep her NPO while we await general surgery input due to the esophageal and small bowel perforation. We will monitor the patient's progress and response to management. We will continue to provide general supportive care, GI and DVT prophylaxis. Further orders per attending MD and hospital course. 07/19/2024: At the time of my evaluation, the patient was lying in bed. The patient had recently returned after undergoing upper GI series. Vital signs today were generally stable. Laboratory data today showed no The staff nurse reports no acute events overnight. The patient reports feeling much better today. Vital signs are hemodynamically stable. Laboratory data today was notable for a magnesium of 1.70 otherwise, no changes of concern. No other complaint. 07/19/2024: I discussed the case with the primary team LODGE OFFICER with regards to the upper GI series which was negative. She did advise that gastroenterology cleared the patient for discharge and would proceed to discharging the patient back to [facility]. Also, peg tube feedings will be resumed. From the pulmonary standpoint, no objection for discharge. Thank you for allowing us to participate in patient care. NEURO: Minimize central acting medications as possible. Maintain fall precautions, adequate lighting during the day PULMONARY: Supplemental 02 as needed. Maintain aspiration precautions at all times CARDIOVASCULAR: Follow hemodynamics. Vital signs per facility protocol GI & NUTRITION: Continue with nutritional support. Continue stool softeners and laxatives as needed. KIDNEYS & ELECTROLYTES: Strict monitoring of intake, output and overall fluid balance. Avoid nephrotoxic medications to the extent possible. Medications to be dosed according to renal function. Monitor electrolytes and replace as needed ENDOCRINE: Maintain blood glucose between 100-180 at all times. Hypoglycemia protocol in place INFECTIOUS DISEASE: Trend temperature, WBC and procalcitonin level Follow cultures, deescalate antibiotics as soon as possible. Panculture if new onset fever ONCOLOGY/HEMATOLOGY/COAGULATION: Monitor for s/s of bleeding Monitor hemoglobin, coagulation studies as needed SKIN: Pressure ulcer prevention per facility protocol Specialty mattress ORTHO/REHAB: Continue PT/OT Prophylaxis: Continue GI and DVT prophylaxis Code Status: Full Resuscitation Disposition: [facility] pending acceptance Other: Total patient care time exceeds 35 minutes excluding all procedures. VALDEMAR PATEL NP Jul 19, 2024 16:47
== END 2024-07-19 14:40 | DRG 393 ==
LOC: EDH 16:21 → EDSEX 16:21 → EDHIP 19:29 → 2AH 07-10 18:05
PROVIDERS: ADMIT Internal Medicine; ATTEND Internal Medicine
PROC: 0DJ08ZZ Inspection of Upper Intestinal Tract, Via Natural or Artificial Opening Endoscopic (ICD-10-PCS; 2024-07-11)
PROC: 02HV33Z Insertion of Infusion Device into Superior Vena Cava, Percutaneous Approach (ICD-10-PCS; 2024-07-12)
PROC: 0D758DZ Dilation of Esophagus with Intraluminal Device, Via Natural or Artificial Opening Endoscopic (ICD-10-PCS; principal; 2024-07-14)
PROC: 0DH64UZ Insertion of Feeding Device into Stomach, Percutaneous Endoscopic Approach (ICD-10-PCS; 2024-07-15)
PROC: 8E0W4CZ Robotic Assisted Procedure of Trunk Region, Percutaneous Endoscopic Approach (ICD-10-PCS; 2024-07-15)
PROC: 0DCA8ZZ Extirpation of Matter from Jejunum, Via Natural or Artificial Opening Endoscopic (ICD-10-PCS; 2024-07-16)
PROC: 05HY33Z Insertion of Infusion Device into Upper Vein, Percutaneous Approach (ICD-10-PCS; 2024-07-19)
DX: T18.3XXA Foreign body in small intestine, initial encounter (principal); E43 Unspecified severe protein-calorie malnutrition; J69.0 Pneumonitis due to inhalation of food and vomit; I50.33 Acute on chronic diastolic (congestive) heart failure; K22.3 Perforation of esophagus; I31.39 Other pericardial effusion (noninflammatory); I42.9 Cardiomyopathy, unspecified; K50.90 Crohn's disease, unspecified, without complications; N30.00 Acute cystitis without hematuria; R18.8 Other ascites; Z16.11 Resistance to penicillins; Z20.822 Contact with and (suspected) exposure to COVID-19; E11.9 Type 2 diabetes mellitus without complications; K59.00 Constipation, unspecified; E03.9 Hypothyroidism, unspecified; E78.5 Hyperlipidemia, unspecified; D51.9 Vitamin B12 deficiency anemia, unspecified; I11.0 Hypertensive heart disease with heart failure; D53.9 Nutritional anemia, unspecified; K22.2 Esophageal obstruction; D72.819 Decreased white blood cell count, unspecified; K57.30 Diverticulosis of large intestine without perforation or abscess without bleeding; R62.7 Adult failure to thrive; J44.9 Chronic obstructive pulmonary disease, unspecified; K21.9 Gastro-esophageal reflux disease without esophagitis; F41.9 Anxiety disorder, unspecified; F32.A Depression, unspecified; F43.20 Adjustment disorder, unspecified; Z87.11 Personal history of peptic ulcer disease; Z85.01 Personal history of malignant neoplasm of esophagus; Z74.01 Bed confinement status; Z93.1 Gastrostomy status; Z98.84 Bariatric surgery status; Z79.899 Other long term (current) drug therapy; Z98.0 Intestinal bypass and anastomosis status; Z68.21 Body mass index [BMI] 21.0-21.9, adult; T18.108A Unspecified foreign body in esophagus causing other injury, initial encounter
CPT/HCPCS: 36415; 36569; 43200; 43235; 43247; 43266; 71045; 71250; 74018; 74150; 74240; 74360; 80048; 80053; 80076; 81001; 82306; 82607; 82948; 83690; 83735; 83880; 84100; 84132; 84145; 84425; 84439; 84443; 84481; 84484; 85025; 85027; 85610; 85730; 87040; 87086; 87186; 87426; 87804; 92610; 93005; 93306; 93356; 94640; 94664; 99285; A4344; A4346; A4606; G0378; J0696; J1100; J1650; J1940; J2003; J2185; J2270; J2405; J2470; J2543; J2704; J3010; J3475; J3480; J3490; J7030; J7070; Q9963; A4215; A4222; A4223; A4620; A4649; A4657; A7002; C1874; J0665

== ENCOUNTER 2024-08-06 09:47 | Inpatient (IN) | payer MEDICARE ==
[~2024-08-06] VITALS: Ht 167.6 cm; Wt 67.0 kg
[2024-08-06] VITALS (44 sets, daily range): BP systolic 86–115; BP diastolic 54–69; PULSE 97–128; RESP 14–20; TEMP 99–100.3; O2SAT 96–100
[~2024-08-06 09:47] MED LIST changes: +APIX2.5T PO; -APIX5TAB PO; +ASCO500T20 PO; -BISA-151 PO; +DSSL PO; -ERGO500093 PO; -ESOM40CA66 PO; -FAMO40TA7 PO; -FLUD0.1T2 PO; -LANS30CA55 PO; -LORA10TA7 PO; -MEGE400O40 PO; -ONDA-105 PO; -POTA-183 PO; +POTA20LI52 PO; -PROM25TA7 PO; -QUET50TA PO
[2024-08-06] MEDS: cefTRIAXone 1G VIAL IVPB ONE (10:12)
[2024-08-06] MEDS: [UNRECOGNIZED DRUG - OTHER] IV ONE (10:13)
--- NOTE | 2024-08-06 10:18 | ERN ---
General Chief Complaint: Shortness of Breath Stated Complaint: SOB Time Seen by MD: 09:49 Source: patient History of Present Illness Initial Comments PATIENT IS A 69-YEAR-OLD FEMALE BROUGHT IN BY EMS AFTER HAVING CONTINUOUS RESPIRATION DIFFICULTIES. PER EMS PATIENT HAS A HISTORY OF RECENT HOSPITALIZATION FOR GI BLEED SECONDARY TO INTESTINAL PUNCTURE. PATIENT IS A PLACED ON OXYGEN AND WAS HAVING PROBLEMS BREATHING IN HIS BROUGHT HER IN FOR FURTHER EVALUATION. PATIENT WAS LIMITED ON VERBALIZATION. Allergies: Coded Allergies: No Known Allergies (Unverified Allergy, Unknown, 05/18/24) Home Meds Reported Medications Ascorbic Acid (Vitamin C) 500 Mg Tablet, 1 TAB PO DAILY for 30 Days, #30 TAB 0 Refills 07/24/24 Potassium Chloride (Potassium Chloride) 20 Meq/15 Ml Liquid, 7.5 ML PO DAILY for 30 Days, #450 ML 0 Refills 07/24/24 Docusate Sodium (Colace Liquid 100Mg/10Ml) 50 Mg/5 Ml Liq, 10 ML PO DAILY for 30 Days, #150 ML 0 Refills 07/24/24 Apixaban (Eliquis) 2.5 Mg Tablet, 1 TAB PO BID for 30 Days, #60 TAB 0 Refills 07/24/24 Montelukast Sodium (Montelukast Sodium) 10 Mg Tablet, 1 TAB PO DAILY for 30 Days, #30 TAB 0 Refills 05/04/24 Midodrine HCl (Midodrine HCl) 5 Mg Tablet, 1 TAB PO TID for 30 Days, #90 TAB 0 Refills 05/04/24 Sucralfate (Sucralfate) 1 Gram Tablet, 1 TAB PO TID for 30 Days, #90 TAB 0 Refills 05/04/24 Simvastatin (Simvastatin) 20 Mg Tablet, 20 MG PO AM, TAB 05/04/24 Sertraline HCl (Sertraline HCl) 100 Mg Tablet, 1 TAB PO DAILY for 30 Days, #30 TAB 0 Refills 05/04/24 Folic Acid (Folic Acid) 0.8 Mg Capsule, 1 CAP PO DAILY for 30 Days, #30 CAP 0 Refills 05/04/24 Cyanocobalamin (Vitamin B-12) (B-12) 1,000 Mcg Tablet, 1 TAB PO DAILY for 30 Days, #30 TAB 0 Refills 05/04/24 Levothyroxine Sodium (Levothyroxine) 50 Mcg Capsule, 1 CAP PO DAILY for 30 Days, #30 CAP 0 Refills 05/04/24 [Azasan] No Conflict Check, 50 MG PO AM 05/04/24 Past Medical History Past Medical History: High Cholesterol, Hypothyroid, Other Medical History Other: PERFORATION OF ESOPHAGUS., TINEA UNGUIM Past Surgical History: Other Surgical History Other: PEG TUBE ROS Dictation LIMITED DUE TO PATIENT'S MENTATION Physical Exam Physical Exam Dictation VITAL SIGNS: REVIEWED. GENERAL APPEARANCE: ALERT, ORIENTED X3, NO ACUTE DISTRESS, OBESE. HEAD AND FACE: NON-TRAUMATIC. EYES: PERRL, PINK CONJUNCTIVAS, EYELID NO TRAUMA, ANTERIOR CHAMBER CLEAR. EARS: PINNAS INTACT AND NO SIGNS OF TRAUMA OR ERYTHEMA. EAR CANALS CLEAR AND NO DISCHARGE. TMS NO ERYTHEMA. NOSE: NO DISCHARGE, NO BLEEDING. OROPHARYNX: MOUTH NORMAL, TEETH NO CARIES, TONGUE PINK. PHARYNX CLEAR, NO ERYTHEMA. TONSILS NO EXUDATES, NO ABSCESSES NOTED. MUCOUS MEMBRANE MOIST. NECK: SUPPLE, NON-TENDER, NO THYROMEGALY, NO MASSES, NO JVD, NO BRUITS. BREAST: DEFERRED. CHEST: NO TENDERNESS, NO CREPITUS, NO PARADOXICAL MOVEMENT, NO RETRACTIONS. LUNGS: CLEAR, WELL-VENTILATED, SYMMETRIC, NO RALES, NO WHEEZING, NO RHONCHI, NO STRIDOR, GOOD BREATH SOUNDS BILATERALLY. HEART: REGULAR RATE, REGULAR RHYTHM, NO MURMUR, NO GALLOPS. VASCULAR: NO PERIPHERAL EDEMA. ABDOMEN: SOFT, POSITIVE BOWEL SOUNDS, DISTENDED, NO GUARDING, NONTENDER, NO REBOUND, NO MASSES NO HEPATOMEGALY, NO SPLENOMEGALY, NO HIGGINS'S SIGN, NO HERNIAS. RECTAL: DEFERRED. GENITAL: DEFERRED. NEUROLOGICAL: NORMAL SPEECH, GROSS MOTOR FUNCTION INTACT, GROSS SENSORY FUNCTION INTACT. MUSCULOSKELETAL: NECK NONTENDER, FULL RANGE OF MOTION, BACK NONTENDER, FULL RANGE OF MOTION. EXTREMITIES: NONTENDER, FULL RANGE OF MOTION. SKIN: COLOR PINK, DRY, NO TURGOR, NO RASH, NO LACERATIONS, NO ABRASIONS, NO CONTUSIONS. LYMPHATICS: DEFERRED. Results Laboratory and Microbiology Lab and Micro Result Laboratory Tests Test 08/06/24 10:29 08/06/24 12:47 White Blood Count 30.3 K/uL (4.8-10.8) *H Red Blood Count 2.60 MIL/uL (4.00-5.50) L Hemoglobin 8.2 g/dL (12.0-16.0) L Hematocrit 24.0 % (36-48) L Mean Corpuscular Volume 92.3 fL (79-99) Mean Corpuscular Hemoglobin 31.5 pg (27.0-33.0) Mean Corpuscular Hemoglobin Concent 34.2 g/dL (32.0-36.0) Red Cell Distribution Width 17.0 % (11.0-15.5) H Platelet Count 812 K/uL (130-400) *H Mean Platelet Volume 10.0 fL (7.5-10.5) Immature Granulocyte % (Auto) 1.5 % (0-1) H Neutrophils (%) (Auto) 89.5 % (40.0-77.0) H Lymphocytes (%) (Auto) 3.3 % (21.0-51.0) L Monocytes (%) (Auto) 5.4 % (3.0-13.0) Eosinophils (%) (Auto) 0.1 % (0.0-8.0) Basophils (%) (Auto) 0.2 % (0.0-5.0) Neutrophils # (Auto) 27.2 K/uL (1.8-7.7) H Lymphocytes # (Auto) 1.0 K/uL (1.0-4.8) Monocytes # (Auto) 1.6 K/uL (0.1-1.0) H Eosinophils # (Auto) 0.03 K/uL (0.00-0.70) Basophils # (Auto) 0.05 K/uL (0.00-0.20) Absolute Immature Granulocyte (auto 0.47 K/uL (0-1) Segmented Neutrophils % 87 % (40-70) H Lymphocytes % (Manual) 6 % (22-44) L Monocytes % (Manual) 7 % (2-9) Nucleated Red Blood Cells 0.0 % (0.0-0.19) Differential Comment MANUAL DIFFERENTIAL White Cell Morphology Comment Platelet Morphology Comment INCREASED Red Blood Cell Morphology ANISO 1+ Prothrombin Time 14.4 SEC (9.6-11.6) H Prothromb Time International Ratio 1.41 (0.85-1.15) H Activated Partial Thromboplast Time 30.8 SEC (26.3-35.5) Sodium Level 132 mmol/L (136-145) L Potassium Level 5.0 mmol/L (3.5-5.1) Chloride Level 100 mmol/L (101-111) L Carbon Dioxide Level 29 mmol/L (21-32) Blood Urea Nitrogen 19 mg/dL (7-18) H Creatinine 0.4 mg/dL (0.5-1.0) L Glomerular Filtration Rate Calc 108 mL/min (>90) Random Glucose 100 mg/dL (70-105) Lactic Acid Level 1.9 mmol/L (0.8-2.5) Total Calcium 8.1 mg/dL (8.5-10.1) L Total Creatine Kinase 12 U/L (21-232) #L Troponin I High Sensitivity 9 ng/L (4-50) B-Type Natriuretic Peptide 951 pg/mL (0-100) H Procalcitonin 0.38 ng/mL (0.05-0.5) Urine Color YELLOW (YELLOW) Urine Appearance CLEAR (CLEAR) Urine pH 7.5 (5.0-8.0) Urine Specific [place] 1.014 (1.001-1.031) Urine Protein NEGATIVE mg/dL (NEGATIVE) Urine Glucose (UA) NEGATIVE mg/dL (NEGATIVE) Urine Ketones NEGATIVE mg/dL (NEGATIVE) Urine Occult Blood NEGATIVE (NEGATIVE) Urine Nitrate NEGATIVE (NEGATIVE) Urine Bilirubin NEGATIVE mg/dL (NEGATIVE) Urine Urobilinogen 0.2 mg/dL (0.2-1.0) Urine Leukocyte Esterase 75 Rachel/uL (NEGATIVE) H Urine RBC 0-1 /HPF (0-1) Urine WBC 6-10 /HPF (0-1) H Urine Squamous Epithelial Cells RARE /HPF (0-2) Urine Bacteria FEW /HPF (None Seen) Urine Other Casts 1 /LPF (None Seen) Labs Reviewed?: Yes EKG/XRAY/US/CT/MRI EKG Comment 08/06/2024 TIME 9:55 A.M. VENTRICULAR RATE 124 SINUS TACHYCARDIA [place] [address] WAVE ELEVATION OR DEPRESSION MDM MDM: DIFFERENTIAL DIAGNOSIS: SEPSIS, UTI, GI BLEED, ABDOMINAL DISTENTION, SMALL- BOWEL OBSTRUCTION, ischemic bowel, splenic infarct RATIONALE: TESTS CONSIDERED AND ORDERED SECONDARY TO SHARED DECISION MAKING INCLUDE: LABS, ECG AND RADIOLOGY PREVIOUS OUTSIDE RECORDS REVIEWED: OLD ER VISITS. RISK OF COMPLICATION AND/OR MORBIDITY OR MORTALITY OF PATIENT MANAGEMENT: NONE MEDICATIONS-PER MEDICATION RECONCILIATION NEED FOR HOSPITALIZATION: PATIENT DOES MEET CRITERIA FOR HOSPITALIZATION. NEED FOR EMERGENCY MAJOR/MINOR SURGERY: NO THERE ARE NO SOCIAL CONCERNS WITH THIS PATIENT. PRESCRIPTION DRUG MANAGEMENT PRESCRIPTIONS WILL INCLUDE SYMPTOMATIC CARE PATIENT'S PRIOR EXTERNAL MEDICAL RECORDS FROM OTHER ER VISITS WERE REVIEWED BY ME INDICATED. PRIOR TESTING AND RESULTS FROM PREVIOUS VISITS WERE REVIEWED. PRIOR TESTS WERE TAKEN INTO ACCOUNT WITH MEDICAL DECISION MAKING AND RESOURCE UTILIZATION, INDEPENDENT HISTORIAN/HISTORIANS WERE USED TO OBTAIN COMPLETE MEDICAL HISTORY. I INDEPENDENTLY INTERPRETED THE TEST THAT WERE PERFORMED, RESULTS WERE REVIEWED BY ME AND CONSIDERED FINDINGS ON RADIOLOGY IF ORDERED. MEDICAL MANAGEMENT AND EXAMINATION INTERPRETATION DISCUSSIONS WERE HAD BY ME WITH OTHER QUALIFIED HEALTHCARE PROFESSIONALS INDICATED FOR THE PATIENT'S CARE. Consulted Dr. Mills previous general surgeon worked on patient she states that patient had recently be seen by Dr. Armendariz surgeon who performed PEG tube placement. Patient will be admitted under the care of hospitalist group for ongoing management. ED Course Orders Procedure Category Date Status Time Cbc With Differential LAB 08/06/24 Complete 09:49 Prothrombin Time With LAB 08/06/24 Complete INR 09:49 Partial LAB 08/06/24 Complete Thromboplastin Time 09:49 Blood Cult DESTINY 08/06/24 In Process 09:49 Type And Screen BBK 08/06/24 Complete 09:49 Urinalysis Profile LAB 08/06/24 Complete 09:49 Culture Urine DESTINY 08/06/24 In Process 09:49 Occult Blood Stool LAB 08/06/24 Logged Single Only 09:49 Creatine Kinase, Total LAB 08/06/24 Complete 09:49 Troponin I High LAB 08/06/24 Complete Sensitivity 09:49 B-Type Natriuretic LAB 08/06/24 Complete Peptide 09:49 Procalcitonin LAB 08/06/24 Complete 09:49 Lactic Acid LAB 08/06/24 Complete 09:49 Basic Metabolic Panel LAB 08/06/24 Complete 09:49 Chest 1vw RAD 08/06/24 Resulted 09:51 12 Lead Ekg Tracing- EKG 08/06/24 Resulted Technical 09:59 0.9%Nacl 1000ml (Ns PHA 08/06/24 Complete 1000ml) 10:30 Ceftriaxone 1g Vial PHA 08/06/24 Complete (Rocephine 1g Inj) 10:30 Morphine 2mg Syg PHA 08/06/24 Complete (Morphine 2mg Syg) 11:30 Ondansetron 4mg Inj PHA 08/06/24 Complete (Zofran 4mg Inj) 11:30 Manual Differential LAB 08/06/24 Complete 10:29 Ceftriaxone 1g Vial PHA 08/06/24 Complete (Rocephine 1g Inj) 12:00 0.9%Nacl 1000ml (Ns PHA 08/06/24 Complete 1000ml) 12:00 Ct Abdomen/Pelvis CT 08/06/24 Resulted W/Contrast 12:25 Zosyn 3.375gm+Ns 50ml PHA 08/06/24 Complete (Zosyn 3.375gm+Ns 12:30 Iohexol (Omnipaque) PHA 08/06/24 Complete 12:45 Norepinephrin 4mg/Ns PHA 08/06/24 In Process 250ml (Levophed 4mg 15:30 Initiate KYRA 08/06/24 In Process Hyperglycemia Protoco 15:11 Insulin Regular, PHA 08/06/24 In Process Human 3ml (Humulin R 16:30 Initiate Hypoglycemia KYRA 08/06/24 In Process Protocol 15:11 Dextrose 50%-Water PHA 08/06/24 In Process (D50w) 15:30 Glucagon 1mg Kit PHA 08/06/24 In Process (Glucagon 1mg Kit) 15:30 Initiate Hypokalemia CPOE 08/06/24 Transmitted Po Half 15:11 Potassium Chloride PHA 08/06/24 In Process 10meq/100ml ([place] 15:30 Potassium Chl 10% PHA 08/06/24 In Process Elixir 20meq (Kcl 10% 15:30 Notify Physician If CPOE 08/06/24 Transmitted There Is 15:11 Notify Md On The Next CPOE 08/06/24 Transmitted 15:11 Notify Md On The CPOE 08/06/24 Transmitted Next(Cont.) 15:11 Magnesium 2gm Premix PHA 08/06/24 In Process 50ml (Magnesium 2gm 15:30 Cbc With Differential LAB 08/07/24 Verified 04:00 Comprehensive LAB 08/07/24 Verified Metabolic Panel 04:00 Ammonia LAB 08/07/24 Verified 04:00 B-Type Natriuretic LAB 08/07/24 Verified Peptide 04:00 Creatine Kinase, Total LAB 08/07/24 Verified 04:00 Hemoglobin A1c LAB 08/07/24 Verified 04:00 D-Dimer LAB 08/06/24 In Process 15:11 Hepatic Function Panel LAB 08/07/24 Verified 04:00 Influenza Type A & B, LAB 08/06/24 Logged Rapid 15:11 Lactic Acid LAB 08/07/24 Verified 04:00 Magnesium LAB 08/07/24 Verified 02:00 Procalcitonin LAB 08/07/24 Verified 04:00 Troponin I High LAB 08/07/24 Verified Sensitivity 04:00 Prothrombin Time With LAB 08/07/24 Verified INR 04:00 Potassium Chloride PHA 08/06/24 In Process 10meq Sr (K-Dur 10meq 15:30 Current Medications Medications (Trade) Dose Ordered Sig/Jennifer Route PRN Reason Start Time Stop Time Status Last Admin Dose Admin Ceftriaxone Sodium (ROCEphine 1G INJ) 1 gm ONCE ONCE IVPB 08/06/24 10:30 08/06/24 10:31 DC 08/06/24 10:12 Ceftriaxone Sodium (ROCEphine 1G INJ) 1 gm ONCE ONCE IVPB 08/06/24 12:00 08/06/24 11:53 DC Iohexol (Omnipaque) 75 ml STK-MED ONCE IV 08/06/24 12:45 08/06/24 12:46 DC Morphine Sulfate (morPHINE 2MG SYG) 2 mg ONCE ONCE IVP 08/06/24 11:30 08/06/24 11:31 DC 08/06/24 11:20 Ondansetron HCl (zoFRAN 4MG INJ) 4 mg ONCE ONCE IVP 08/06/24 11:30 08/06/24 11:31 DC 08/06/24 11:20 Piperacillin Sod/ Tazobactam Sod (Zosyn 3.375gm+NS 50ml) 3.375 gm Q12H IV 08/06/24 12:30 08/06/24 15:14 DC 08/06/24 13:05 Sodium Chloride 1,266 ml @ 422 mls/hr ONCE ONCE IV 08/06/24 10:30 08/06/24 13:29 DC 08/06/24 10:13 Sodium Chloride 1,266 ml @ 422 mls/hr ONCE ONCE IV 08/06/24 12:00 08/06/24 11:53 DC Vital Signs Date Time Temp Pulse Resp B/P (MAP) Pulse Ox O2 Delivery O2 Flow Rate FiO2 08/06/24 15:13 97.9 123 19 83/53 94 Nasal Cannula* 3.0 N/A 08/06/24 14:09 97.9 121 19 93/60 95 Nasal Cannula* 4 36 08/06/24 12:07 98.8 123 22 98/63 94 Nasal Cannula* 3.0 N/A 08/06/24 10:24 98.8 122 22 101/56 Nasal Cannula* 4 36 08/06/24 09:49 98.8 121 24 101/56 94 Nasal Cannula 3.0 Critical Care Note Comments Critical Care Procedure Note Authorized and Performed by: me Total critical care time: Approximately 36 minutes Due to a high probability of clinically significant, life threatening deterioration, the patient required my highest level of preparedness to intervene emergently and I personally spent this critical care time directly and personally managing the patient. This critical care time included obtaining a history; examining the patient; pulse oximetry; ordering and review of studies; arranging urgent treatment with development of a management plan; evaluation of patient's response to treatment; frequent reassessment; and, discussions with other providers. This critical care time was performed to assess and manage the high probability of imminent, life-threatening deterioration that could result in multi-organ failure. It was exclusive of separately billable procedures and treating other patients and teaching time. Please see MDM section and the rest of the note for further information on patient assessment and treatment. DX & DISP Disposition: Inpatient Decision to Admit Time: 16:07 Departure Impression: Primary Impression: Splenic infarct Additional Impressions: Ischemic bowel disease, Sepsis, UTI (urinary tract infection) Condition: Stable Referrals: GLORIA MAYA (PCP) JULIUS GOLDSTEIN MD August 06, 2024 10:18
[2024-08-06 10:50] LABS: INR 1.41 (0.85-1.15); PROTHROMBIN TIME 14.4 SEC (9.6-11.6)
[2024-08-06 10:52] LABS: PARTIAL THROMBOPLASTIN TIME 30.8 SEC (26.3-35.5)
[2024-08-06 10:58] LABS: CREATININE 0.4 mg/dL (0.5-1.0)
--- NOTE | 2024-08-06 11:01 | EKG ---
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
[2024-08-06 11:04] LABS: B-TYPE NATRIURETIC PEPTIDE 951 pg/mL (0-100)
[2024-08-06 11:17] LABS: BASOPHILS # (AUTO) 0.05 K/uL (0.00-0.20); BASOPHILS % (AUTO) 0.2 % (0.0-5.0); EOSINOPHILS # (AUTO) 0.03 K/uL (0.00-0.70); EOSINOPHILS % (AUTO) 0.1 % (0.0-8.0); IMMATURE GRANULOCYTE ABSOLUTE 0.47 K/uL (0-1); LYMPHOCYTES % (AUTO) 3.3 % (21.0-51.0); MEAN CORPUSCULAR HEMOGLOBIN 31.5 pg (27.0-33.0); MEAN CORPUSCULAR HGB CONC 34.2 g/dL (32.0-36.0); MEAN CORPUSCULAR VOLUME 92.3 fL (79-99); MONOCYTES # (AUTO) 1.6 K/uL (0.1-1.0); MONOCYTES % (AUTO) 5.4 % (3.0-13.0); NEUTROPHILS # (AUTO) 27.2 K/uL (1.8-7.7); NEUTROPHILS % (AUTO) 89.5 % (40.0-77.0)
[2024-08-06] MEDS: morPHINE 2 MG SYG IVP ONE (11:20)
[2024-08-06] MEDS: ondanSETRON 4MG INJ IVP ONE (11:20)
[2024-08-06 11:48] LABS: PLATELET COUNT (AUTO) 812 K/uL (130-400); WHITE BLOOD COUNT (AUTO) 30.3 K/uL (4.8-10.8)
[2024-08-06 11:50] LABS: LYMPHOCYTES % (MANUAL) 6 % (22-44); MAN.DIFF COMMENT-IMPRESSION MANUAL DIFFERENTIAL; MONOCYTES % (MANUAL) 7 % (2-9); SEGMENTED NEUTROPHILS % 87 % (40-70); TOTAL CELLS COUNTED 100
[2024-08-06 11:51] LABS: PLATELET MORPHOLOGY COMMENT INCREASED
[2024-08-06] MEDS ORDERED: [UNRECOGNIZED DRUG - OTHER] IV ONE (12:00)
[2024-08-06] MEDS ORDERED: cefTRIAXone 1G VIAL IVPB ONE (12:00)
--- NOTE | 2024-08-06 12:17 | HMCIMG ---
CHEST 1VW HISTORY: Fever COMPARISON: 07/24/2024 FINDINGS: A frontal projection of the chest was obtained. There are bilateral pulmonary infiltrates suggestive of pulmonary vascular congestion with possible superimposed pneumonitis. The heart is borderline enlarged. All the lines and tubes are again seen in place. No evidence of aortic calcification is seen. Postop changes are seen of the cervical spine. IMPRESSION: 1. Bilateral pulmonary infiltrates are seen suggestive of pulmonary vascular congestion with possible superimposed pneumonitis.
[2024-08-06] MEDS ORDERED: IOHEXOL-350 75 ML VIAL IV ONE (12:45)
[2024-08-06 13:05] LABS: APPEARANCE,URINE CLEAR (CLEAR); BILIRUBIN,URINE NEGATIVE (NEGATIVE); COLOR,URINE YELLOW (YELLOW); GLUCOSE, URINE (UA) NEGATIVE (NEGATIVE); KETONES,URINE NEGATIVE (NEGATIVE); LEUKOCYTE ESTERASE ,URINE 75 Leu/uL (NEGATIVE); NITRATE,URINE NEGATIVE (NEGATIVE); OCCULT BLOOD,URINE NEGATIVE (NEGATIVE); PH,URINE 7.5 (5.0-8.0); PROTEIN,URINE NEGATIVE (NEGATIVE); UROBILINOGEN,URINE 0.2 mg/dL (0.2-1.0)
[2024-08-06] MEDS: ZOSYN 3.375GM +NS 50ML IV SCH (13:05)
[2024-08-06 13:07] LABS: ADD UA MICROSCOPIC YES
[2024-08-06 13:19] LABS: BACTERIA,URINE FEW /HPF (None Seen); OTHER CASTS, URINE 1 /LPF (None Seen); RBC,URINE 0-1 /HPF (0-1); SQUAMOUS EPITHELIAL CELL,UR RARE /HPF (0-2)
--- NOTE | 2024-08-06 15:06 | HMCIMG ---
CT ABDOMEN/PELVIS W/CONTRAST HISTORY: Abdominal pain COMPARISON: 07/23/2024 TECHNIQUE: Multiple sequential axial images of the abdomen and pelvis were obtained from the dome of the diaphragm through symphysis pubis. Patient was given 75 cc of Omnipaque through intravenous route. Oral contrast was not given. FINDINGS: There are bilateral pleural effusion with left more than right with compressive atelectasis. There are bilateral interstitial fibrosis. Degenerative changes of the thoracolumbar spine are present. The heart is not enlarged. Liver measures 17 cm. IVC filter is seen. The spleen is hypodense and enlarged suggestive of splenic infarct. This was not seen on previous study. There is subcutaneous soft tissue air collection in the left lower anterior abdominal wall. Small bowel dilatation is seen with fluid-filled small bowel loops and colon. Differential diagnosis would include enterocolitis with ischemic colitis not excluded. There is diffuse anasarca. The liver, adrenal glands and pancreas are unremarkable. There is no evidence of hydronephrosis bilaterally. No evidence of renal stone is seen. Fecal material is seen in the colon. There are normal size retroperitoneal and mesenteric lymph nodes. There is ascites. Atherosclerotic changes are present. Pelvic sidewalls are symmetric bilaterally. Bladder is well distended without wall thickening. IMPRESSION: 1. The spleen is hypodense and enlarged suggestive of splenic infarct. This was not seen on previous study. There is subcutaneous soft tissue air collection in the left lower anterior abdominal wall. Small bowel dilatation is seen with fluid-filled small bowel loops and colon. Differential diagnosis would include enterocolitis with ischemic colitis not excluded. There is diffuse anasarca. Bilateral pleural effusions are seen. Possibility of mesenteric ischemia cannot be completely excluded. Report was given to the emergency room physician. CT was performed with one or more following dose reduction techniques: automated exposure control, adjustment of the mA and kv according to patient's size, or use of a iterative reconstruction technique.
[2024-08-06] MEDS ORDERED: MAG/ALUM/SIMETH 30 ML UDCUP PO PRN (15:30)
[2024-08-06] MEDS ORDERED: acetaMINOPHEN 325 MG TAB PO PRN (15:30)
[2024-08-06] MEDS ORDERED: PoTASSium chloRIDE 10MEQ SR 10 MEQ/TAB TAB.SR.24H PO PRN (15:30)
[2024-08-06] MEDS ORDERED: hydrALAZine 20MG/ML VIAL IV PRN (15:30)
[2024-08-06] MEDS ORDERED: NITROGLYCERIN 0.4 MG SL TAB SL PRN (15:30)
[2024-08-06] MEDS ORDERED: LACTULOSE 20 GM/30 ML UDCUP PO PRN (15:30)
[2024-08-06] MEDS ORDERED: VANCOMYCIN PROTOCOL PER PHARMACY IV PRN (15:30)
[2024-08-06] MEDS ORDERED: ALBUTEROL 0.083% 2.5 MG/3 ML INH IH PRN (15:30)
[2024-08-06] MEDS ORDERED: oxyCODONE/aceTAMIN 5/325MG TAB PO PRN (15:30)
[2024-08-06] MEDS ORDERED: cefTRIAXone 1G VIAL 2 GM in 0.9%NACL 100ML 100 ML IV SCH (15:30)
[2024-08-06] MEDS ORDERED: guaiFENesin-DM 200/20MG 10ML PO PRN (15:30)
[2024-08-06] MEDS ORDERED: GLUCAGON 1MG KIT 1 MG ML IM PRN (15:30)
[2024-08-06] MEDS ORDERED: ketOROlac 15MG/ML VIAL (15MG/ML) IV PRN (15:30)
[2024-08-06] MEDS ORDERED: ZOLPidem TARTrate 5 MG TAB PO PRN (15:30)
[2024-08-06] MEDS ORDERED: FAMOTIDINE 20MG VIAL IV PRN (15:30)
[2024-08-06] MEDS: NOREPINEPHRIN 4MG/NS 250ML 250 ML IV SCH (15:34)
[2024-08-06] MEDS: 0.9%NACL 1000ML 1,000 ML IV SCH (15:35)
--- NOTE | 2024-08-06 15:42 | HP ---
[facility] HISTORY AND PHYSICAL Date of Service: August 06, 2024 Time of Service: 15:23 PCP:Dr eliza Castro Admitting: Dr Perez, Allergies: No Allergy Information Available, No Known Drug Allergies HISTORY OF PRESENT ILLNESS: [Patient is 69 years old female with a past medical history of chronic anemia, GERD, hyperlipidemia, dementia, esophageal structure/stenosis, dysphagia s/p PEG tube placement. Crohn's disease, IBS, depression, hypertension, hypothyroidism, hyperlipidemia, GERD, chronic constipation, takotsubo cardiomyopathy, brain injury, gastric bypass 1991, neck surgery x2, bilateral knee surgery, carpal tunnel release, EGD with stent placement, who came to emergency department via EMS from [facility] for respiratory distress and abdominal pain. Per EMS patient was placed on oxygen and was having problems breathing. Patient is limited on verbalization. Patient was recently hospitalized to [facility] for GI bleed secondary to intestinal puncture. On 07/24/2024 exploratory lap was performed were replacement of G-tube was done with repair of bowel perforation by Dr Mccabe. Most recent 2D echo 07/10/2024 showed 60 to 65% stage I diastolic dysfunction. Most recent vital signs temperature 97.9 pulse 121 respiration 19 blood pressure 93/60 . Patient was placed on Levophed. Patient is satting 95% on 4 L nasal cannula. WBC 30.3 hemoglobin 8.2 hematocrit 24 platelets 820 UA positive for leukocytosis. Sodium 132 potassium 5.0 chloride 100 carbon dioxide 29 BUN 19 creatinine 0.9 GFR 108 lactic 1.9 calcium 8.1 CK 12 troponin 9 , BNP 951 procalcitonin negative. Chest x-ray showed bilateral pulmonary infiltrates suggestive of pulmonary vascular congestion, possible superimposed pneumonitis. CT abdomen/pelvis as per radiologist showed marked spleen and ischemic bowel. Surgeon Dr. Armendariz was notified regarding above finding and was consulted. Family members/ at the bedside was notified regards admission in the further plan. Patient will be admitted under hospitalist care for further evaluation/recommendation. Patient will be sent to ICU REVIEW OF SYSTEMS CONSTITUTIONAL: Denies fevers, chills, or night sweats. No unintentional weight loss reported. NEUROLOGICAL: Denies headache, amaurosis fugax, motor weakness, sensory deficit, vertigo/spinning sensation, gait abnormalities, or tremors. ENT: No hearing loss, otalgia, otorrhea, rhinitis, rhinorrhea, hoarseness, or sore throat. CARDIOVASCULAR: Denies any exertional angina, dyspnea on exertion, orthopnea, paroxysmal nocturnal dyspnea, palpitations, life-threatening arrhythmias, claudication. PULMONARY: Denies any , cough, phlegm/sputum, hemoptysis, pleuritic chest pain. Patient complain of shortness of breaths SLEEP: Denies morning headaches, daytime somnolence or napping. Denies difficulty falling asleep, staying asleep, waking from sleep. Denies knowledge of snoring. GASTROINTESTINAL: Denies any type of dysphagia to either liquids or solids. Denies nausea, vomiting, pyrosis, early satiety, diarrhea, constipation, or changes in stool consistency or caliber. Denies coffee-ground emesis, hematemesis, hematochezia, or melanotic stools. Patient complaining of abdominal pain GENITOURINARY: Denies frequency, urgency, nocturia, hematuria or incontinence (Storage/Irritative symptoms.) Low urinary stream, straining to void, urinary intermittency or hesitancy, splitting of the voiding stream, terminal dribbling. ENDOCRINOLOGIC: Denies polyuria, polydipsia, polyphagia or heat/cold intolerances. HEMATOLOGIC: Denies thrombophilia/previous clots, or coagulopathy/bleeding disorders. ONCOLOGIC: Denies personal history of malignancy. DERMATOLOGIC: Denies rashes or pruritus. PSYCHIATRIC: Denies any suicidal or homicidal ideation. Denies hallucinations. PAST MEDICAL HISTORY: [ Esophageal structure/stenosis, dysphagia s/p PEG tube placement, Crohn's disease, IBS, depression, hypertension, hypothyroidism, hyperlipidemia, GERD, chronic constipation, takotsubo cardiomyopathy, brain injury, debility, dementia , chronic anemia, GERD, multiple skin tears bilateral lower extremity wounds , 2D echo 07/11/2559 to 65% stage I diastolic dysfunction] PAST SURGICAL HISTORY: [ 07/24/2024 exploratory lap replacement of G-tube with repair of perforation, x2, gastric bypass 1991, neck surgery x2, carpal tunnel release, bilateral knee surgery, EGD with stent placement 07/14/2024 ] PAST SOCIAL HISTORY: [ Patient denies smoking. Patient denies drug use. Patient denies alcohol illicit] FAMILY HISTORY: [ Patient was admitted from [facility]. Patient bed-bound ] Coded Allergies: No Known Allergies (Unverified Allergy, Unknown, 05/18/24) PHYSICAL EXAM GENERAL APPEARANCE: The patient is awake, alert, and disoriented in no acute cardiopulmonary distress. NEUROLOGICAL: Patient bed-bound. Patient contracted HEENT: Face is symmetric. Pupils are equal and reactive. Extraocular movements are intact. NECK: Supple. No JVD. No thyromegaly. No submental, submandibular, pre- /postauricular, occipital or supraclavicular lymphadenopathy. CHEST: Normal chest expansion. No Telemetry. LUNGS: Absence of any rales, rhonchi or any wheezing. CARDIOVASCULAR: Regular. S1 and S2 normal. No appreciable rubs, murmurs or gallops. ABDOMEN: Soft, , and nondistended. There is no rebound, voluntary guarding, or rigidity. Tender abdomen : Deferred. No Manuel. EXTREMITIES: Non-edematous and not cyanotic. No clubbing. Good capillary refill. SKIN: Multiple skin tears and bilateral lower extremities wounds Vital Sign (Last 24 Hours) 08/06/24 15:13 Temp 97.9 Pulse 123 Resp 19 B/P (MAP) 83/53 Pulse Ox 94 O2 Delivery Nasal Cannula* O2 Flow Rate 3.0 FiO2 N/A LABS: Laboratory: Test 08/06/24 12:47 08/06/24 10:29 Range/Units Urine Color YELLOW YELLOW Urine Appearance CLEAR CLEAR Urine pH 7.5 5.0-8.0 Urine Specific [place] 1.014 1.001-1.031 Urine Protein NEGATIVE NEGATIVE mg/dL Urine Glucose (UA) NEGATIVE NEGATIVE mg/dL Urine Ketones NEGATIVE NEGATIVE mg/dL Urine Occult Blood NEGATIVE NEGATIVE Urine Nitrate NEGATIVE NEGATIVE Urine Bilirubin NEGATIVE NEGATIVE mg/dL Urine Urobilinogen 0.2 0.2-1.0 mg/dL Urine Leukocyte Esterase 75 H NEGATIVE Rachel/uL Urine RBC 0-1 0-1 /HPF Urine WBC 6-10 H 0-1 /HPF Urine Squamous Epithelial Cells RARE 0-2 /HPF Urine Bacteria FEW None Seen /HPF Urine Other Casts 1 None Seen /LPF White Blood Count 30.3 *H 4.8-10.8 K/uL Red Blood Count 2.60 L 4.00-5.50 MIL/uL Hemoglobin 8.2 L 12.0-16.0 g/dL Hematocrit 24.0 L 36-48 % Mean Corpuscular Volume 92.3 79-99 fL Mean Corpuscular Hemoglobin 31.5 27.0-33.0 pg Mean Corpuscular Hemoglobin Concent 34.2 32.0-36.0 g/dL Red Cell Distribution Width 17.0 H 11.0-15.5 % Platelet Count 812 *H 130-400 K/uL Mean Platelet Volume 10.0 7.5-10.5 fL Immature Granulocyte % (Auto) 1.5 H 0-1 % Neutrophils (%) (Auto) 89.5 H 40.0-77.0 % Lymphocytes (%) (Auto) 3.3 L 21.0-51.0 % Monocytes (%) (Auto) 5.4 3.0-13.0 % Eosinophils (%) (Auto) 0.1 0.0-8.0 % Basophils (%) (Auto) 0.2 0.0-5.0 % Neutrophils # (Auto) 27.2 H 1.8-7.7 K/uL Lymphocytes # (Auto) 1.0 1.0-4.8 K/uL Monocytes # (Auto) 1.6 H 0.1-1.0 K/uL Eosinophils # (Auto) 0.03 0.00-0.70 K/uL Basophils # (Auto) 0.05 0.00-0.20 K/uL Absolute Immature Granulocyte (auto 0.47 0-1 K/uL Segmented Neutrophils % 87 H 40-70 % Lymphocytes % (Manual) 6 L 22-44 % Monocytes % (Manual) 7 2-9 % Nucleated Red Blood Cells 0.0 0.0-0.19 % Differential Comment MANUAL DIFFERENTIAL White Cell Morphology Comment Platelet Morphology Comment INCREASED Red Blood Cell Morphology ANISO 1+ Prothrombin Time 14.4 H 9.6-11.6 SEC Prothromb Time International Ratio 1.41 H 0.85-1.15 Activated Partial Thromboplast Time 30.8 26.3-35.5 SEC Sodium Level 132 L 136-145 mmol/L Potassium Level 5.0 3.5-5.1 mmol/L Chloride Level 100 L 101-111 mmol/L Carbon Dioxide Level 29 21-32 mmol/L Blood Urea Nitrogen 19 H 7-18 mg/dL Creatinine 0.4 L 0.5-1.0 mg/dL Glomerular Filtration Rate Calc 108 >90 mL/min Random Glucose 100 70-105 mg/dL Lactic Acid Level 1.9 0.8-2.5 mmol/L Total Calcium 8.1 L 8.5-10.1 mg/dL Total Creatine Kinase 12 #L 21-232 U/L Troponin I High Sensitivity 9 4-50 ng/L B-Type Natriuretic Peptide 951 H 0-100 pg/mL Procalcitonin 0.38 0.05-0.5 ng/mL Current Medications Medications (Trade) Dose Ordered Sig/Jennifer Route PRN Reason Start Time Stop Time Status Last Admin Dose Admin Dextrose (D50w) 50 ml AD PRN IV HYPOGLYCEMIA PROTOCOL 08/06/24 15:30 09/05/24 15:29 Glucagon (Glucagon 1mg Kit) 1 mg AD PRN IM HYPOGLYCEMIA PROTOCOL 08/06/24 15:30 09/05/24 15:29 Insulin Human Regular (humuLIN R 100 UNIT/ML 3ML) INSULIN SLIDING SCAL... ACHS SQ 08/06/24 16:30 09/05/24 16:29 Magnesium Sulfate 50 ml @ 0 mls/hr PROTOCOL PRN IV other 08/06/24 15:30 09/05/24 15:29 Norepinephrine 250 ml @ 0 mls/hr PROTOCOL IV 08/06/24 15:30 09/05/24 15:29 Piperacillin Sod/ Tazobactam Sod (Zosyn 3.375gm+NS 50ml) 3.375 gm Q12H IV 08/06/24 12:30 08/06/24 15:14 DC 08/06/24 13:05 3.375 GM Potassium Chloride 100 ml @ 100 mls/hr AD PRN IV POTASSIUM PROTOCOL 08/06/24 15:30 09/05/24 15:29 Potassium Chloride (K-Dur 10meq Sr Tab) 10 meq AD PRN PO POTASSIUM PROTOCOL 08/06/24 15:30 09/05/24 15:29 Potassium Chloride (KCl 10% Elixir 20meq/15ml) 10 meq AD PRN PO POTASSIUM PROTOCOL 08/06/24 15:30 09/05/24 15:29 DIAGNOSTICS / RADIOLOGY: [ ] ASSESSMENT: [ Acute sepsis secondary to ischemic bowel, UTI POA Acute hypoxic respiratory failure POA Infarcted spleen per CT abdomen/pelvis POA Ischemic bowel per CT abdomen/pelvis POA Hypotension requiring Levophed drip POA Acute complicated cystitis POA Acute on chronic diastolic congestive heart failure 2D echo 60 to 65 % stage I dysfunction 07/10/2024 Esophageal structure/stenosis 07/24/2024 exploratory lap repair of G-tube repair of perforation Crohn's disease POA IBS POA Thrombocytopenia POA Depression POA Hypertension POA Hypothyroidism POA Chronic constipation POA Takotsubo cardiomyopathy POA Debility and frailty POA Chronic anemia POA GERD, POA Hyperlipidemia POA Multiple skin tears on arms with bilateral lower extremities wounds POA Dementia POA History of Recent GI bleedon previous admission due secondary to intestinal puncture History of brain injury History of EGD with stent placement 07/14/2024 History of carpal tunnel release History of neck surgery x2 History of bilateral knee surgery History of EGD with stent placement 07/14/2024] PLAN: [Admit to: ICU Consults: ICU, surgeon Antibiotics: Rocephin, vancomycin Drips Levophed Fluids normal saline at 100 mL/hours NEURO: Minimize central acting medications as possible. Fall Precautions. Well lighted room through the day and minimize interruptions through the night to prevent acute delirium. PULMONARY: Chest x-ray showed bilateral pulmonary infiltrate suggestive of pulmonary vascular congestion, possible superimposed pneumonitis Supplemental 02 as needed BiPAP as necessary, for respiratory distress Titrate Fio2 to keep Spo2 > or = 90% DuoNebs and CPT as needed IS hourly while awake for pulmonary hygiene Out of bed to chair as tolerated VAP Bundle Maintain aspiration precautions at all times CARDIOVASCULAR: Follow hemodynamics. Vital signs per facility protocol GI & NUTRITION: Occult pending CT abdomen/pelvis showed infarct spleen, ischemic bowel use Continue nutritional support Aspirations precautions Prokinetic agents and laxatives as needed KIDNEYS & ELECTROLYTES: Strict monitoring of intake and output Daily weights Avoid nephrotoxic agents Monitor electrolytes and replace as needed Goal urine output of 30mL/hr or 0.5mL/kg/hr Medications to be dosed according to renal function. Avoid contrast if possible ENDOCRINE: Maintain blood glucose between 100-180 at all times. Insulin sliding scale for blood glucose management Hypoglycemia and hyperglycemia protocol in place INFECTIOUS DISEASE: Blood culture pending Urine culture pending Trend temperature, WBC and procalcitonin level Follow cultures, deescalate antibiotics as soon as possible. Panculture if new onset fever HEMATOLOGY & COAGULATION: Monitor H&H. Keep Hgb > 7 Transfuse 1 unit of PRBC for Hgb < 7 Transfuse 1 pack of platelets of platelets < 20, 000 Watch for any signs and symptoms of bleeding SKIN: Pressure ulcer prevention per facility protocol Specialty mattress as needed Treatment plan discussed with patient and family at the bedside Medications to be reconciled once obtained by patient and/or family and availa ble to be reconciled in computer p.r.n. medication for pain nausea and vomiting Questions were answered We will continue to monitor the patient closely Animal Behaviorist for disposition Rehab: PT/OT GI: PPI DVT: SCD's Code Status: Full Resuscitation Disposition: TBD Prognosis: Guarded ] ADVANCED CARE PLANNING 1. Which of the following were discussed? Hospice Care - Yes / No Therapeutic options - Yes / No Advance Directives - Yes / No Other discussions - 2. Discussed with who? Patient and family member at the bedside 3. Voluntary nature of this service was explained to the patient? Yes / No 4. Amount of time spent - __ more than 35 minutes 5. Reviewed by Physician? (if this service was performed by NPP) Yes / No ATTESTATION BY PHYSICIAN I have seen and examined the patient. I reviewed the documentation, medical decision making, and treatment plan as noted by the mid-level provider above. I agree with the findings and plan of care. RUPERTO Pruett MD MEDICAL SOCIAL CONSULTANT August 06, 2024 15:42
[2024-08-06] MEDS ORDERED: CEFTRIAXONE 2GM VIAL IVPB SCH (16:00)
[2024-08-06] MEDS: VANCOMYCIN 1G/250ML KIT 250 ML IV ONE (16:23)
[2024-08-06] MEDS: INSULIN humuLIN R 100 UNIT/ML 3ML SQ SCH (16:26)
[2024-08-06 17:01] LABS: INFLUENZA TYPE A Negative For Type A (NEGATIVE); INFLUENZA TYPE B Negative For Type B (NEGATIVE)
[2024-08-06] MEDS: IpraTROPium 0.5 MG/2.5 ML INH IH SCH (18:28)
[2024-08-06] MEDS: metRONIDazole 500MG/100ML BAG IV SCH (18:40)
[2024-08-06] MEDS: hydroCORTisone SOD SUCCINATE 100 MG/2 ML VIAL IV SCH (18:41)
[2024-08-06] MEDS: ceFEPime HCL 1 GM VIAL IVPB SCH (19:48)
[2024-08-06] MEDS: HEParin 5,000 UNIT VIAL SQ SCH (19:48)
[2024-08-06] MEDS: FAMOTIDINE 20MG VIAL IV SCH (19:48)
--- NOTE | 2024-08-06 20:10 | CONS ---
HISTORY OF PRESENT ILLNESS: The patient is a 71-year-old white female, known to me from a previous admission a few weeks ago. The patient had been operated on about 10 days prior to that admission by another surgeon for a gastric tube placement. This was performed robotically. I was consulted for free air and dislodgement of the gastric tube. The patient was taken emergently to the operating room and the gastric tube replaced. The patient did well postoperatively and was fed anteriorly and then sent back to the intermediate. Apparently, the patient was doing well according to the until the patient began having worsening abdominal pain today. I have been asked to see the patient for infarcted spleen. PAST MEDICAL HISTORY: The patient has a history of IBS, hypertension, hypothyroidism, esophageal strictures and stenosis, cardiomyopathy, by report brain injury. PAST SURGICAL HISTORY: She has had multiple surgeries including neck surgery, gastric bypass, G-tube placement, replacement, exploratory laparotomy, knee surgeries, and carpal tunnel release. The patient was taken to the ER, hypotensive, tachycardic with left upper quadrant pain. CAT scan of the abdomen shows bilateral pleural effusions, atelectasis, interstitial fibrosis, ascites, hypodense enlarged spleen consistent with infarct. There is small bowel dilatation and fluid-filled loops of bowel in the colon. Discussed and reviewed with radiologist. No evidence of air in the bowel wall. No evidence of perforation. PHYSICAL EXAMINATION: VITAL SIGNS: The patient is in the ICU tachycardic, on pressors. Saturations are 94% on nasal cannula and heart rate is in the 118. GENERAL: The patient is awake, alert, and oriented. CHEST: Decreased breath sounds at the base. HEART: Tachycardic. ABDOMEN: Mildly to moderately tender in the left upper quadrant, diffusely otherwise tender but without peritoneal signs. No guarding. No rebound. EXTREMITIES: Show edema and anasarca. LABORATORY DATA: White count is 30, hematocrit of 24, platelets are 812. SMA-7 is remarkable for a sodium of 132 and a chloride of 100. ASSESSMENT AND PLAN: Ascites, ileus, pleural effusions, splenic infarct of unknown etiology, on Eliquis. As the patient's blood pressure is improving with IV hydration, continue IV hydration. Wean from pressors as tolerated. Broad-spectrum antibiotics. No surgical intervention at this time. If deemed able to hold Eliquis, a specialty bed has been ordered. In the meantime, place G-tube to straight drainage, n.p.o. for now, strict I's and O's. Etiology of infarction is unclear. TID: [id number] RECEIPT: [id number]
--- NOTE | 2024-08-06 21:34 | CONS ---
[facility] CONSULTATION NOTE Date Patient Seen: August 06, 2024 Time of Visit: 21:28 Supervising Physician: Dr. Lara Reason for Consultation: Septic Mookie Primary Care Physician: Dr. John Hopson Outpatient Specialists: [ ] Inpatient Consults: [ ] PROBLEM LIST: Acute hypoxemic respiratory failure POA. Acute sepsis and shock from intra-abdominal source POA. Infarcted spleen noted on CT abdomen and pelvis, POA. Ischemic bowel noted on CT abdomen and pelvis, POA. Chronic anemia POA Hypothyroidism POA Hyperlipidemia POA Hypertension POA GERD POA Severe protein calorie malnutrition POA Cachexia POA Mulitple wounds POA Debility and frailty POA Depression POA Dementia POA. History Of esophageal stricture POA Recent suspected bowel perforation, ruled out s/p exploratory laparotomy with lysis of adhesions and placement of a gastrostomy tube 22 Thai on 07/24/2024 HPI: This is a 69-year-old female patient who has past medical history that is significant for chronic anemia, GERD, hyperlipidemia, dementia, esophageal structure/stenosis, dysphagia s/p PEG tube placement. Crohn's disease, IBS, depression, hypertension, hypothyroidism, hyperlipidemia, GERD, chronic c onstipation, takotsubo cardiomyopathy, brain injury, gastric bypass 1991, EGD with stent placement. The patient was recently discharged from this institution after being admitted for a suspected bowel perforation and undergoing a exploratory laparotomy for repair of bowel perforation and PEG tube replacement. After aggressive hospital management, the patient returned to the halfway facility she will continue her medical management and rehabilitative care. At the halfway facility, staff noted the patient with respiratory difficulty, hypotensive events and worsening abdominal pain. For this reason, EMS was called and the patient was referred back to the emergency department for further evaluation and management of her condition. Workup in the emergency department was positive for a WBC 30.3 hemoglobin 8.2 hematocrit 24 platelets 820 UA positive for leukocytosis. Sodium 132 potassium 5.0 chloride 100 carbon dioxide 29 BUN 19 creatinine 0.9 GFR 108 lactic 1.9 calcium 8.1 CK 12 troponin 9 , BNP 951 procalcitonin negative. Chest x-ray showed bilateral pulmonary infiltrates suggestive of pulmonary vascular congestion, possible superimposed pneumonitis. CT abdomen/pelvis as per radiologist showed infarcted spleen and ischemic bowel. Patient received IV volume resuscitative measures 30 mL per kg but did not correct blood pressure requiring to start pressor therapy with L evophed. The patient was also started on antibiotic therapy with Rocephin and vancomycin. Considering the acute of her condition, the patient was admitted into the ICU for further evaluation and management of her condition. Critical Care and General surgery was consulted for further management of her condition. At the time of my visit, the patient was in her assigned room. PAST MEDICAL HX: see above PAST SURGICAL HX: noncontributory SOCIAL HISTORY: No tobacco, ETOH, or illicit drug use Coded Allergies: No Known Allergies (Unverified Allergy, Unknown, 05/18/24) REVIEW OF SYSTEMS: 12 point ROS reviewed with patient. Pertinent positives mentioned above. Otherwise negative. PHYSICAL EXAM: GENERAL: Alert, weak, awake oriented x 3 HEENT: EOMI, Sclera non icteric, moist mucosa NECK: Supple, no JVD, trachea midline LUNGS: Clear breath sounds bilaterally. No wheezes HEART: Regular rate and rhythm. Normal S1 and S2, without murmurs ABD: Abdomen soft, nontender. Bowel sounds present EXT: No clubbing cyanosis or edema NEURO: Alert and oriented to person, follows commands Vital Signs (last 8hr) Date Time Temp Pulse Resp B/P (MAP) Pulse Ox O2 Delivery O2 Flow Rate FiO2 08/06/24 20:45 115 15 98 08/06/24 20:44 109 15 97/63 (74) 98 08/06/24 20:30 107 17 98 08/06/24 20:29 111 17 99/58 (72) 99 08/06/24 20:15 108 18 98 08/06/24 20:14 110 17 104/69 (81) 98 08/06/24 20:00 100.2 102 16 98 08/06/24 19:59 102 17 98/65 (76) 98 08/06/24 19:45 102 16 98 08/06/24 19:45 105 17 102/63 (76) 95 08/06/24 19:44 115 16 86/68 (74) 98 08/06/24 19:30 106 17 95 08/06/24 19:15 115 16 103/65 (78) 96 08/06/24 19:11 Nasal Cannula* 4 36 08/06/24 19:00 110 17 96 08/06/24 18:35 106 19 N/Cannula Low lpm 3.0 32 08/06/24 18:29 106 20 08/06/24 18:16 Nasal Cannula* 4 36 08/06/24 18:15 106 16 105/66 (79) 100 36 08/06/24 18:14 106 16 105/66 (79) 100 36 08/06/24 18:00 99.0 111 18 103/66 (78) 98 36 08/06/24 17:45 124 18 101/67 (78) 97 36 08/06/24 17:30 111 17 108/65 (79) 97 36 08/06/24 17:15 128 20 102/65 (77) 95 36 08/06/24 17:00 99.7 113 18 115/62 (79) 95 36 08/06/24 16:11 97.9 113 18 118/56 93 Nasal Cannula* 4 36 08/06/24 15:39 109 18 N/Cannula Low lpm 4.0 36 08/06/24 15:35 97.9 111 19 104/47 94 Nasal Cannula* 3.0 N/A 08/06/24 15:34 83/58 08/06/24 15:13 97.9 123 19 83/53 94 Nasal Cannula* 3.0 N/A 08/06/24 14:09 97.9 121 19 93/60 95 Nasal Cannula* 4 36 LABS: Hematology Labs: Test 08/06/24 10:29 Range/Units White Blood Count 30.3 *H 4.8-10.8 K/uL Red Blood Count 2.60 L 4.00-5.50 MIL/uL Hemoglobin 8.2 L 12.0-16.0 g/dL Hematocrit 24.0 L 36-48 % Mean Corpuscular Volume 92.3 79-99 fL Mean Corpuscular Hemoglobin 31.5 27.0-33.0 pg Mean Corpuscular Hemoglobin Concent 34.2 32.0-36.0 g/dL Red Cell Distribution Width 17.0 H 11.0-15.5 % Platelet Count 812 *H 130-400 K/uL Mean Platelet Volume 10.0 7.5-10.5 fL Immature Granulocyte % (Auto) 1.5 H 0-1 % Neutrophils (%) (Auto) 89.5 H 40.0-77.0 % Lymphocytes (%) (Auto) 3.3 L 21.0-51.0 % Monocytes (%) (Auto) 5.4 3.0-13.0 % Eosinophils (%) (Auto) 0.1 0.0-8.0 % Basophils (%) (Auto) 0.2 0.0-5.0 % Neutrophils # (Auto) 27.2 H 1.8-7.7 K/uL Lymphocytes # (Auto) 1.0 1.0-4.8 K/uL Monocytes # (Auto) 1.6 H 0.1-1.0 K/uL Eosinophils # (Auto) 0.03 0.00-0.70 K/uL Basophils # (Auto) 0.05 0.00-0.20 K/uL Absolute Immature Granulocyte (auto 0.47 0-1 K/uL Segmented Neutrophils % 87 H 40-70 % Lymphocytes % (Manual) 6 L 22-44 % Monocytes % (Manual) 7 2-9 % Nucleated Red Blood Cells 0.0 0.0-0.19 % Differential Comment MANUAL DIFFERENTIAL White Cell Morphology Comment Platelet Morphology Comment INCREASED Red Blood Cell Morphology ANISO 1+ Chemistry Labs: Test 08/06/24 19:40 08/06/24 10:29 Range/Units Whole Blood Glucose 81 70-110 MG/DL Sodium Level 132 L 136-145 mmol/L Potassium Level 5.0 3.5-5.1 mmol/L Chloride Level 100 L 101-111 mmol/L Carbon Dioxide Level 29 21-32 mmol/L Blood Urea Nitrogen 19 H 7-18 mg/dL Creatinine 0.4 L 0.5-1.0 mg/dL Glomerular Filtration Rate Calc 108 >90 mL/min Random Glucose 100 70-105 mg/dL Lactic Acid Level 1.9 0.8-2.5 mmol/L Total Calcium 8.1 L 8.5-10.1 mg/dL Total Creatine Kinase 12 #L 21-232 U/L Troponin I High Sensitivity 9 4-50 ng/L B-Type Natriuretic Peptide 951 H 0-100 pg/mL Procalcitonin 0.38 0.05-0.5 ng/mL Coagulation Labs: Test 08/06/24 15:58 08/06/24 10:29 Range/Units D-Dimer Quantitative (PE/DVT) 3630 *H 0-500 ng/mL Prothrombin Time 14.4 H 9.6-11.6 SEC Prothromb Time International Ratio 1.41 H 0.85-1.15 Activated Partial Thromboplast Time 30.8 26.3-35.5 SEC DIAGNOSTICS / RADIOLOGY RESULTS: [ ] PLAN The patient was admitted into the ICU on a Levophed drip. Critical Care was consulted for aggressive management of sepsis and shock. For now, the patient will continue on the Levophed drip and we will adjust as necessary to maintain map above 65. I am going to discontinue the IV Rocephin and change the patient to cefepime, Flagyl and vanco. We will start the patient on Solu-Cortef 50 mg IV q.6 we will continue with IV fluids for rehydration. General surgeon is on board we will follow up on her plan for further management. The patient will remain on nasal cannula for oxygen supplementation and we will adjust as necessary. We will repeat surveillance labs in the morning. We will monitor the patient's progress and response to management. We will continue provide general supportive care, GI and DVT prophylaxis. Further orders per attending MD and hospital course. NEURO: Minimize central acting medications as possible. Fall Precautions. Well lighted room through the day and minimize interruptions through the night to prevent acute delirium. PULMONARY: Supplemental 02 as needed Titrate Fio2 to keep Spo2 > or = 90% DuoNebs and CPT as needed IS hourly while awake for pulmonary hygiene Out of bed to chair as tolerated VAP Bundle CARDIOVASCULAR: Follow hemodynamics. Titrate vasopressor to keep MAP >65 or systolic blood pressure >95mmHg DIPS: Levophed LINES: PICC GI & NUTRITION: Continue nutritional support Aspirations precautions Prokinetic agents and laxatives as needed KIDNEYS & ELECTROLYTES: Strict monitoring of intake and output Daily weights Avoid nephrotoxic agents Monitor electrolytes and replace as needed Goal urine output of 30mL/hr or 0.5mL/kg/hr Urine output: [ ] Fluid Balance: [ ] ENDOCRINE: Maintain blood glucose between 100-180 at all times. Insulin sliding scale for blood glucose management INFECTIOUS DISEASE: Trend temperature. Jon-culture if febrile. Micro: [ ] Antibiotics: cefepime, Flagyl and vanco. HEMATOLOGY & COAGULATION: Monitor H&H. Keep Hgb > 7 Transfuse 1 unit of PRBC for Hgb < 7 Transfuse 1 pack of platelets of platelets < 20, 000 Watch for any signs and symptoms of bleeding SKIN: Pressure ulcer prevention per facility protocol Rehab: PT/OT Prophylaxis: GI: [ ] DVT: [ ] Code Status: Full Resuscitation Disposition: ICU Other: I personally spent 40 minutes of critical care time in treatment of this patient. This includes patient management, time at bedside, time reviewing tests, labs, appropriate images and studies, documentation, and patient care coordination. This time excludes separately billable procedures. Case was discussed and seen with my supervising physician. The above plan was formulated and agreed upon. VALDEMAR PATEL NP August 06, 2024 21:34
[2024-08-07] VITALS (178 sets, daily range): BP systolic 83–138; BP diastolic 50–87; PULSE 85–117; RESP 11–27; TEMP 98.2–99.9; O2SAT 98–99
[2024-08-07 02:12] LABS: HEMOGLOBIN A1C 4.8 % (4.0-6.0)
[2024-08-07 04:14] LABS: BASOPHILS # (AUTO) 0.06 K/uL (0.00-0.20); BASOPHILS % (AUTO) 0.2 % (0.0-5.0); HEMATOCRIT 21.3 % (36-48); IMMATURE GRANULOCYTE ABSOLUTE 0.36 K/uL (0-1); LYMPHOCYTES # (AUTO) 0.5 K/uL (1.0-4.8); LYMPHOCYTES % (AUTO) 1.6 % (21.0-51.0); MEAN CORPUSCULAR HEMOGLOBIN 31.9 pg (27.0-33.0); MEAN CORPUSCULAR HGB CONC 33.8 g/dL (32.0-36.0); MEAN CORPUSCULAR VOLUME 94.2 fL (79-99); MONOCYTES # (AUTO) 0.3 K/uL (0.1-1.0); MONOCYTES % (AUTO) 1.1 % (3.0-13.0); NEUTROPHILS # (AUTO) 29.1 K/uL (1.8-7.7); NEUTROPHILS % (AUTO) 95.9 % (40.0-77.0); PLATELET COUNT (AUTO) 655 K/uL (130-400); RED BLOOD CELL COUNT(AUTO) 2.26 MIL/uL (4.00-5.50); RED CELL DISTRIBUTION WIDTH 17.3 % (11.0-15.5)
[2024-08-07 04:17] LABS: WHITE BLOOD COUNT (AUTO) 30.3 K/uL (4.8-10.8)
[2024-08-07 04:27] LABS: INR 1.36 (0.85-1.15)
[2024-08-07 04:41] LABS: ALBUMIN 1.1 g/dL (3.5-5.0); ASPARTATE AMINOTRANSFERASE 29 U/L (10-37); BILIRUBIN,DIRECT 0.1 mg/dL (0.0-0.3); BILIRUBIN,TOTAL 0.3 mg/dL (0.2-1.0); CARBON DIOXIDE 27 mmol/L (21-32); CHLORIDE 104 mmol/L (101-111); CREATINE KINASE, TOTAL 10 U/L (21-232); CREATININE 0.3 mg/dL (0.5-1.0); GLOMERULAR FILTR. RATE CALC 116 mL/min (>90); GLUCOSE,RANDOM 102 mg/dL (70-105); POTASSIUM 4.9 mmol/L (3.5-5.1); SODIUM SERUM 134 mmol/L (136-145); TOTAL PROTEIN, SERUM 4.9 g/dL (6.0-8.3); UREA NITROGEN, BLOOD 18 mg/dL (7-18)
[2024-08-07 04:43] LABS: ALANINE AMINOTRANSFERASE < 6 U/L (12-78); AMMONIA < 10 umol/L (11-32)
[2024-08-07] MEDS: MAGNESIUM 2GM PREMIX 50ML 50 ML IV PRN (05:21)
[2024-08-07] MEDS: VANCOMYCIN 750MG VIAL IVPB SCH (05:21)
[2024-08-07] MEDS ORDERED: MAGNESIUM 4GM PREMIX 100ML IV SCH (07:00)
[2024-08-07] MEDS ORDERED: SUCR1ORA15 PO (07:34)
[2024-08-07] MEDS ORDERED: ESOM20CA51 PO (07:34)
[2024-08-07] MEDS ORDERED: LEVO50TA11 PO (07:34)
[2024-08-07] MEDS ORDERED: FOLI1 PO (07:34)
[2024-08-07] MEDS ORDERED: MEGE400O40 PO (07:34)
[2024-08-07] MEDS ORDERED: FLUD.1 PO (07:34)
[2024-08-07] MEDS ORDERED: FURO20TA4 PO (07:34)
[2024-08-07] MEDS ORDERED: METO-391 PO (07:34)
[2024-08-07] MEDS ORDERED: MIDO10TA3 PO (07:34)
[2024-08-07] MEDS ORDERED: APIX5TAB PO (07:34)
[2024-08-07] MEDS ORDERED: FAMO40TA7 PO (07:34)
[2024-08-07] MEDS ORDERED: MENING VAC A,C,Y,W-135 DIP/PF 1 EACH VIAL IM SCH (09:30)
[2024-08-07] MEDS: furoSEMIDE 40MG VIAL IV ONE (09:33)
[2024-08-07] MEDS: morPHINE 2 MG SYG IVP PRN (09:40)
--- NOTE | 2024-08-07 10:41 | CONS ---
Cardiac Consult Note CONSULT NOTE DATE OF SERVICE: August 06, 2024 at 09:47 REFERRING PROVIDER: ERWIN PATEL MD REASON FOR CONSULT: Edema HPI: This unfortunate 69-year-old female his actually seen another Cardiology group but we have been asked to see her regarding lower extremity edema as well as an abnormal CT scan for possible splenic infarct. Patient currently denies any chest pain pressure tightness. A 2D echocardiogram done on July 10, 2024 revealed preserved left ventricular function with no significant valvulopathy present. EKG reveals no significant evidence of AFib and telemetry has revealed a sinus mechanism. Patient has had significant issues related to GI components which is being handled by Gastroenterology and General surgery. She recently had PEG tube placed. Please refer to H&P and surgical consults for further details. Upon my evaluation today her is at bedside and they deny any cardiac issues or symptoms. [facility] she is on anticoagulation she is on beta blockade she is on midodrine therapy she is on diuretic therapy. ROS: No fever, headache, chest pain, abdominal pain, nausea, vomiting, or diarrhea. PMHX: Crohn's disease IVS Depression Hypertension Hypothyroid state Dyslipidemia GERD Chronic constipation Gastric bypass 1991 Osteoarthritis Esophageal stricture Preserved left ventricular function noted July 10, 2024 with an ejection fraction at 65% PSHX: Exploratory laparotomy with replacement of G-tube July 24, 2024 Repair of GI perforation x2 Gastric bypass 1991 Next surgery x2 Carpal tunnel release Bilateral knee surgery FH: Noncontributory SOCIAL: long term Nonsmoker nondrinker PHYSICAL EXAMINATION: GENERAL: No acute distress. Answering questions appropriately with the at bedside HEENT: Normocephalic, atraumatic. CARDIAC: Positive S1 and S2. No murmurs. LUNGS: Clear to auscultation bilaterally. ABDOMEN: Bowel sounds present, soft, nontender. EXTREMITIES: No edema bilaterally. NEUROLOGIC: Cranial nerves 2-12 grossly intact. PSYCHIATRIC: Calm. ASSESSMENT: Edema Preserved left ventricular function via 2D echocardiography PLAN: Cardiac-lópez no new recommendations. Continue with current regimen of medications. Her primary potato inspector is Dr. Farrar so if any further cardiac issues arise please not hesitate to call his group. No new recommendations from our standpoint. No orders have been placed. Thank you Vital Signs 08/06/24 08/06/24 08/06/24 08/06/24 10:24 12:07 14:09 15:13 Temp 98.8 98.8 97.9 97.9 Pulse 122 123 121 123 Resp 22 22 19 19 B/P (MAP) 101/56 98/63 93/60 83/53 Pulse Ox 94 95 94 O2 Delivery Nasal Cannula* Nasal Cannula* Nasal Cannula* Nasal Cannula* O2 Flow Rate 4 3.0 4 3.0 FiO2 36 N/A 36 N/A 08/06/24 08/06/24 08/06/24 08/06/24 15:34 15:35 15:39 16:11 Temp 97.9 97.9 Pulse 111 109 113 Resp 19 18 18 B/P (MAP) 83/58 104/47 118/56 Pulse Ox 94 93 O2 Delivery Nasal Cannula* N/Cannula Low lpm Nasal Cannula* O2 Flow Rate 3.0 4.0 4 FiO2 N/A 36 36 08/06/24 08/06/24 08/06/24 08/06/24 17:00 17:15 17:30 17:45 Temp 99.7 Pulse 113 128 111 124 Resp 18 20 17 18 B/P (MAP) 115/62 (79) 102/65 (77) 108/65 (79) 101/67 (78) Pulse Ox 95 95 97 97 FiO2 36 36 36 36 08/06/24 08/06/24 08/06/24 08/06/24 18:00 18:14 18:15 18:16 Temp 99.0 Pulse 111 106 106 Resp 18 16 16 B/P (MAP) 103/66 (78) 105/66 (79) 105/66 (79) Pulse Ox 98 100 100 O2 Delivery Nasal Cannula* O2 Flow Rate 4 FiO2 36 36 36 36 08/06/24 08/06/24 08/06/24 08/06/24 18:29 18:35 19:00 19:11 Pulse 106 106 110 Resp 20 19 17 B/P (MAP) Pulse Ox 96 O2 Delivery N/Cannula Low lpm Nasal Cannula* O2 Flow Rate 3.0 4 FiO2 32 36 08/06/24 08/06/24 08/06/24 08/06/24 19:15 19:30 19:44 19:45 Pulse 115 106 115 105 Resp 16 17 16 17 B/P (MAP) 103/65 (78) 86/68 (74) 102/63 (76) Pulse Ox 96 95 98 95 5/2/25 5/2/25 5/2/25 5// 19:45 19:59 20:00 20:14 Temp 100.2 Pulse 102 102 102 110 Resp 16 17 16 17 B/P (MAP) 98/65 (76) 104/69 (81) Pulse Ox 98 98 98 98 5/2/25 5/2/25 5/2/25 5/06/01 20:15 20:29 20:30 20:44 Pulse 108 111 107 109 Resp 18 17 17 15 B/P (MAP) 99/58 (72) 97/63 (74) Pulse Ox 98 99 98 98 5/2/ 5// 5//25 5/06/01 20:45 21:00 21:14 21:15 Pulse 115 100 100 107 Resp 15 16 16 15 B/P (MAP) 98/59 (72) Pulse Ox 98 98 98 97 5// 5// 5/2/25 5/06/01 21:29 21:30 21:44 21:45 Pulse 115 102 102 103 Resp 17 15 15 15 B/P (MAP) 94/64 (74) 102/61 (75) Pulse Ox 97 98 98 98 5// 5// 5// 5/06/01 21:59 22:00 22:14 22:15 Pulse 100 105 112 99 Resp 19 19 15 15 B/P (MAP) 108/55 (72) 102/54 (70) Pulse Ox 97 97 98 98 5// 5// 5/2/25 5/06/01 22:29 22:30 22:44 22:45 Pulse 104 99 120 101 Resp 16 14 17 17 B/P (MAP) 94/58 (70) 103/54 (70) Pulse Ox 98 99 98 98 5/2/ 5//25 5/2/25 5/06/01 22:59 23:00 23:14 23:15 Pulse 111 102 108 97 Resp 15 16 18 17 B/P (MAP) 109/63 (78) 103/61 (75) Pulse Ox 99 98 100 100 5/2/ 5/2/ 5//25 5/06/29 23:17 23:19 00:00 00:00 Pulse 109 109 99 Resp 16 19 17 B/P (MAP) Pulse Ox 98 O2 Delivery N/Cannula Low lpm Nasal Cannula* O2 Flow Rate 2.0 4 FiO2 28 36 08/07/24 08/07/24 08/07/24 08/07/24 00:14 00:15 00:29 00:30 Pulse 103 103 107 101 Resp 25 20 17 15 B/P (MAP) 114/64 (81) 101/52 (68) Pulse Ox 99 98 99 99 08/07/24 08/07/24 08/07/24 08/07/24 00:44 00:45 00:59 01:00 Pulse 102 112 112 104 Resp 16 19 15 16 B/P (MAP) 103/63 (76) 101/63 (76) Pulse Ox 99 98 97 97 08/07/24 08/07/24 08/07/24 08/07/24 01:14 01:15 01:29 01:30 Pulse 106 106 117 112 Resp 16 27 15 15 B/P (MAP) 104/69 (81) 89/58 (68) Pulse Ox 96 96 96 96 08/07/24 08/07/24 08/07/24 08/07/24 01:44 01:45 01:59 02:00 Pulse 98 98 98 117 Resp 15 14 15 15 B/P (MAP) 93/56 (68) 89/61 (70) Pulse Ox 98 97 97 97 08/07/24 08/07/24 08/07/24 08/07/24 02:14 02:15 02:30 02:44 Pulse 102 101 109 100 Resp 14 15 15 14 B/P (MAP) 97/67 (77) 100/61 (74) Pulse Ox 97 97 97 98 08/07/24 08/07/24 08/07/24 08/07/24 02:45 02:59 03:00 03:14 Pulse 99 101 97 95 Resp 14 14 15 15 B/P (MAP) 96/53 (67) 91/55 (67) Pulse Ox 98 98 98 98 08/07/24 08/07/24 08/07/24 08/07/24 03:15 03:23 03:29 03:30 Pulse 93 95 94 Resp 14 13 13 B/P (MAP) 97/57 98/55 (69) Pulse Ox 98 98 98 08/07/24 08/07/24 08/07/24 08/07/24 03:44 03:45 03:59 04:00 Pulse 99 98 99 Resp 14 13 14 B/P (MAP) 83/54 (64) 94/54 (67) Pulse Ox 97 98 98 O2 Delivery Nasal Cannula* O2 Flow Rate 4 FiO2 36 08/07/24 08/07/24 08/07/24 08/07/24 04:00 04:15 04:30 04:44 Temp 99.9 Pulse 99 94 100 99 Resp 14 13 15 13 B/P (MAP) 102/50 (67) 97/52 (67) Pulse Ox 98 97 97 98 08/07/24 08/07/24 08/07/24 08/07/24 04:45 04:59 05:00 05:14 Pulse 96 106 101 94 Resp 12 13 14 14 B/P (MAP) 88/63 (71) 92/60 (71) Pulse Ox 97 98 98 98 08/07/24 08/07/24 08/07/24 08/07/24 05:15 05:29 05:30 05:44 Pulse 95 94 92 97 Resp 12 15 13 14 B/P (MAP) 98/52 (67) 113/63 (80) Pulse Ox 98 97 98 98 08/07/24 08/07/24 08/07/24 08/07/24 05:45 06:45 06:59 07:00 Pulse 94 96 93 98 Resp 14 18 16 16 B/P (MAP) 123/75 Pulse Ox 98 98 100 100 08/07/24 08/07/24 08/07/24 07:00 07:01 08:00 Pulse 92 97 Resp 19 16 O2 Delivery N/Cannula Low lpm Nasal Cannula* O2 Flow Rate 2.0 4 FiO2 28 36 Laboratory Tests Test 08/06/24 10:29 08/06/24 12:47 08/06/24 15:58 08/06/24 16:24 White Blood Count 30.3 K/uL (4.8-10.8) Red Blood Count 2.60 MIL/uL (4.00-5.50) Hemoglobin 8.2 g/dL (12.0-16.0) Hematocrit 24.0 % (36-48) Mean Corpuscular Volume 92.3 fL (79-99) Mean Corpuscular Hemoglobin 31.5 pg (27.0-33.0) Mean Corpuscular Hemoglobin Concent 34.2 g/dL (32.0-36.0) Red Cell Distribution Width 17.0 % (11.0-15.5) Platelet Count 812 K/uL (130-400) Mean Platelet Volume 10.0 fL (7.5-10.5) Immature Granulocyte % (Auto) 1.5 % (0-1) Neutrophils (%) (Auto) 89.5 % (40.0-77.0) Lymphocytes (%) (Auto) 3.3 % (21.0-51.0) Monocytes (%) (Auto) 5.4 % (3.0-13.0) Eosinophils (%) (Auto) 0.1 % (0.0-8.0) Basophils (%) (Auto) 0.2 % (0.0-5.0) Neutrophils # (Auto) 27.2 K/uL (1.8-7.7) Lymphocytes # (Auto) 1.0 K/uL (1.0-4.8) Monocytes # (Auto) 1.6 K/uL (0.1-1.0) Eosinophils # (Auto) 0.03 K/uL (0.00-0.70) Basophils # (Auto) 0.05 K/uL (0.00-0.20) Absolute Immature Granulocyte (auto 0.47 K/uL (0-1) Segmented Neutrophils % 87 % (40-70) Lymphocytes % (Manual) 6 % (22-44) Monocytes % (Manual) 7 % (2-9) Nucleated Red Blood Cells 0.0 % (0.0-0.19) Differential Comment MANUAL DIFFERENTIAL White Cell Morphology Comment Platelet Morphology Comment INCREASED Red Blood Cell Morphology ANISO 1+ Prothrombin Time 14.4 SEC (9.6-11.6) Prothromb Time International Ratio 1.41 (0.85-1.15) Activated Partial Thromboplast Time 30.8 SEC (26.3-35.5) Sodium Level 132 mmol/L (136-145) Potassium Level 5.0 mmol/L (3.5-5.1) Chloride Level 100 mmol/L (101-111) Carbon Dioxide Level 29 mmol/L (21-32) Blood Urea Nitrogen 19 mg/dL (7-18) Creatinine 0.4 mg/dL (0.5-1.0) Glomerular Filtration Rate Calc 108 mL/min (>90) Random Glucose 100 mg/dL (70-105) Hemoglobin A1c 4.8 % (4.0-6.0) Estimated Average Glucose (eAG) 91 mg/dL (70-126) Lactic Acid Level 1.9 mmol/L (0.8-2.5) Total Calcium 8.1 mg/dL (8.5-10.1) Total Creatine Kinase 12 U/L (21-232) Troponin I High Sensitivity 9 ng/L (4-50) B-Type Natriuretic Peptide 951 pg/mL (0-100) Procalcitonin 0.38 ng/mL (0.05-0.5) Urine Color YELLOW (YELLOW) Urine Appearance CLEAR (CLEAR) Urine pH 7.5 (5.0-8.0) Urine Specific [place] 1.014 (1.001-1.031) Urine Protein NEGATIVE mg/dL (NEGATIVE) Urine Glucose (UA) NEGATIVE mg/dL (NEGATIVE) Urine Ketones NEGATIVE mg/dL (NEGATIVE) Urine Occult Blood NEGATIVE (NEGATIVE) Urine Nitrate NEGATIVE (NEGATIVE) Urine Bilirubin NEGATIVE mg/dL (NEGATIVE) Urine Urobilinogen 0.2 mg/dL (0.2-1.0) Urine Leukocyte Esterase 75 Rachel/uL (NEGATIVE) Urine RBC 0-1 /HPF (0-1) Urine WBC 6-10 /HPF (0-1) Urine Squamous Epithelial Cells RARE /HPF (0-2) Urine Bacteria FEW /HPF (None Seen) Urine Other Casts 1 /LPF (None Seen) D-Dimer Quantitative (PE/DVT) 3630 ng/mL (0-500) Whole Blood Glucose 82 MG/DL (70-110) Test 08/06/24 16:31 08/06/24 19:40 08/07/24 04:02 08/07/24 05:54 Influenza Type A Antigen Negative For Type A Influenza Type B Antigen Negative For Type B Whole Blood Glucose 81 MG/DL (70-110) 101 MG/DL (70-110) White Blood Count 30.3 K/uL (4.8-10.8) Red Blood Count 2.26 MIL/uL (4.00-5.50) Hemoglobin 7.2 g/dL (12.0-16.0) Hematocrit 21.3 % (36-48) Mean Corpuscular Volume 94.2 fL (79-99) Mean Corpuscular Hemoglobin 31.9 pg (27.0-33.0) Mean Corpuscular Hemoglobin Concent 33.8 g/dL (32.0-36.0) Red Cell Distribution Width 17.3 % (11.0-15.5) Platelet Count 655 K/uL (130-400) Mean Platelet Volume 9.6 fL (7.5-10.5) Immature Granulocyte % (Auto) 1.2 % (0-1) Neutrophils (%) (Auto) 95.9 % (40.0-77.0) Lymphocytes (%) (Auto) 1.6 % (21.0-51.0) Monocytes (%) (Auto) 1.1 % (3.0-13.0) Eosinophils (%) (Auto) 0.0 % (0.0-8.0) Basophils (%) (Auto) 0.2 % (0.0-5.0) Neutrophils # (Auto) 29.1 K/uL (1.8-7.7) Lymphocytes # (Auto) 0.5 K/uL (1.0-4.8) Monocytes # (Auto) 0.3 K/uL (0.1-1.0) Eosinophils # (Auto) 0.00 K/uL (0.00-0.70) Basophils # (Auto) 0.06 K/uL (0.00-0.20) Absolute Immature Granulocyte (auto 0.36 K/uL (0-1) Nucleated Red Blood Cells 0.0 % (0.0-0.19) Prothrombin Time 14.0 SEC (9.6-11.6) Prothromb Time International Ratio 1.36 (0.85-1.15) Sodium Level 134 mmol/L (136-145) Potassium Level 4.9 mmol/L (3.5-5.1) Chloride Level 104 mmol/L (101-111) Carbon Dioxide Level 27 mmol/L (21-32) Blood Urea Nitrogen 18 mg/dL (7-18) Creatinine 0.3 mg/dL (0.5-1.0) Glomerular Filtration Rate Calc 116 mL/min (>90) Random Glucose 102 mg/dL (70-105) Lactic Acid Level 1.2 mmol/L (0.8-2.5) Total Calcium 7.7 mg/dL (8.5-10.1) Magnesium Level 1.30 mg/dL (1.80-2.40) Total Bilirubin 0.3 mg/dL (0.2-1.0) Direct Bilirubin 0.1 mg/dL (0.0-0.3) Aspartate Amino Transf (AST/SGOT) 29 U/L (10-37) Alanine Aminotransferase (ALT/SGPT) < 6 U/L (12-78) Alkaline Phosphatase 109 U/L (50-136) Ammonia < 10 umol/L (11-32) Total Creatine Kinase 10 U/L (21-232) Troponin I High Sensitivity 6.3 ng/L (4-50) B-Type Natriuretic Peptide 461 pg/mL (0-100) Total Protein 4.9 g/dL (6.0-8.3) Albumin 1.1 g/dL (3.5-5.0) Procalcitonin 0.35 ng/mL (0.05-0.5) Current Medications Medications Dose Ordered Sig/Jennifer Route PRN Reason Start Time Stop Time Status Last Admin Sodium Chloride 1,266 ml @ 422 mls/hr ONCE ONCE IV 08/06/24 10:30 08/06/24 13:29 DC 08/06/24 10:13 Ceftriaxone Sodium 1 gm ONCE ONCE IVPB 08/06/24 10:30 08/06/24 10:31 DC 08/06/24 10:12 Morphine Sulfate 2 mg ONCE ONCE IVP 08/06/24 11:30 08/06/24 11:31 DC 08/06/24 11:20 Ondansetron HCl 4 mg ONCE ONCE IVP 08/06/24 11:30 08/06/24 11:31 DC 08/06/24 11:20 Ceftriaxone Sodium 1 gm ONCE ONCE IVPB 08/06/24 12:00 08/06/24 11:53 DC Sodium Chloride 1,266 ml @ 422 mls/hr ONCE ONCE IV 08/06/24 12:00 08/06/24 11:53 DC Piperacillin Sod/ Tazobactam Sod 3.375 gm Q12H IV 08/06/24 12:30 08/06/24 15:14 DC 08/06/24 13:05 Iohexol 75 ml STK-MED ONCE IV 08/06/24 12:45 08/06/24 12:46 DC Norepinephrine 250 ml @ 0 mls/hr PROTOCOL IV 08/06/24 15:30 09/05/24 15:29 08/07/24 03:23 Insulin Human Regular INSULIN SLIDING SCAL... ACHS SQ 08/06/24 16:30 09/05/24 16:29 Ipratropium [place] 0.5 mg [id number] IH 08/06/24 18:00 09/05/24 17:59 08/07/24 07:01 Heparin Sodium (Porcine) 5,000 unit BID SQ 08/06/24 21:00 09/05/24 20:59 08/07/24 09:34 Sodium Chloride 1,000 ml @ 100 mls/hr Q10H IV 08/06/24 15:30 09/05/24 15:29 08/06/24 15:35 Ceftriaxone Sodium 2 gm/ Sodium Chloride 100 ml @ 200 mls/hr Q24H IV 08/06/24 15:30 08/06/24 15:27 DC Famotidine 20 mg Q24H IV 08/06/24 21:00 09/05/24 20:59 08/06/24 19:48 Ceftriaxone Sodium 2 gm Q24H IVPB 08/06/24 16:00 08/06/24 15:37 DC Ceftriaxone Sodium 2 gm Q24H IVPB 08/07/24 16:00 08/06/24 17:54 DC Vancomycin HCl 250 ml @ 125 mls/hr ONCE ONCE IV 08/06/24 16:00 08/06/24 17:59 DC 08/06/24 16:23 Vancomycin HCl 750 mg Q12H IVPB 08/07/24 06:00 08/17/24 05:59 08/07/24 05:21 Cefepime HCl 1 gm Q8H IVPB 08/06/24 20:00 08/16/24 19:59 08/07/24 03:26 Metronidazole/ Sodium Chloride 500 mg Q8H IV 08/06/24 18:00 08/16/24 17:59 08/07/24 09:23 Hydrocortisone Sodium Succinate 50 mg Q6H6 IV 08/06/24 18:00 09/05/24 17:59 08/07/24 05:22 Magnesium Sulfate 4 gm AD IV 08/07/24 07:00 09/06/24 06:59 Furosemide 40 mg ONCE ONCE IV 08/07/24 09:30 08/07/24 09:31 DC 08/07/24 09:33 Hepatitis B Vaccine 0.5 ml ONCE ONCE IM 08/07/24 09:30 08/07/24 09:31 DC 08/07/24 09:26 Pneumococcal Polyvalent Vaccine 0.5 ml ONCE ONCE IM 08/07/24 09:30 08/07/24 09:31 DC 08/07/24 09:30 Meningococcal Polysaccharide Vacc 1 each ONCE IM 08/07/24 09:30 08/07/24 09:16 DC Reported Medications Metoprolol Succinate (Metoprolol Succinate) 50 Mg Tab.er.24h, 1 TAB PO DAILY 08/07/24 Sucralfate (Sucralfate) 1 Gram/10 Ml Oral.susp, 10 ML PO QID 08/07/24 Fludrocortisone Acetate (Florinef) 0.1 Mg Tab, 1 TAB PO DAILY 08/07/24 Levothyroxine Sodium (Levothyroxine Sodium) 50 Mcg Tablet, 1 TAB PO DAILY 08/07/24 Megestrol Acetate (Megestrol Acetate) 400 Mg/10 Ml (40 Mg/Ml) Oral.susp, 10 ML PO DAILY 08/07/24 Folic Acid (Folvite) 1 Mg Tab, 1 TAB PO DAILY 08/07/24 Apixaban (Eliquis) 5 Mg Tablet, 1 TAB PO BID 08/07/24 Esomeprazole Magnesium (Esomeprazole Magnesium) 20 Mg Capsule.dr, 1 CAP PO DAILY 08/07/24 Midodrine HCl (Midodrine HCl) 10 Mg Tablet, 1.5 TAB PO TID 08/07/24 Famotidine (Famotidine) 40 Mg Tablet, 1 TAB PO DAILY 08/07/24 Furosemide (Furosemide) 20 Mg Tablet, 1 TAB PO DAILY 08/07/24 Ascorbic Acid (Vitamin C) 500 Mg Tablet, 1 TAB PO DAILY for 30 Days, #30 TAB 0 Refills 07/24/24 Potassium Chloride (Potassium Chloride) 20 Meq/15 Ml Liquid, 7.5 ML PO DAILY for 30 Days, #450 ML 0 Refills 07/24/24 Docusate Sodium (Colace Liquid 100Mg/10Ml) 50 Mg/5 Ml Liq, 10 ML PO DAILY for 30 Days, #150 ML 0 Refills 07/24/24 Apixaban (Eliquis) 2.5 Mg Tablet, 1 TAB PO BID for 30 Days, #60 TAB 0 Refills 07/24/24 Montelukast Sodium (Montelukast Sodium) 10 Mg Tablet, 1 TAB PO DAILY for 30 Days, #30 TAB 0 Refills 05/04/24 Midodrine HCl (Midodrine HCl) 5 Mg Tablet, 1 TAB PO TID for 30 Days, #90 TAB 0 Refills 05/04/24 Sucralfate (Sucralfate) 1 Gram Tablet, 1 TAB PO TID for 30 Days, #90 TAB 0 Refills 05/04/24 Simvastatin (Simvastatin) 20 Mg Tablet, 20 MG PO AM, TAB 05/04/24 Sertraline HCl (Sertraline HCl) 100 Mg Tablet, 1 TAB PO DAILY for 30 Days, #30 TAB 0 Refills 05/04/24 Folic Acid (Folic Acid) 0.8 Mg Capsule, 1 CAP PO DAILY for 30 Days, #30 CAP 0 Refills 05/04/24 Cyanocobalamin (Vitamin B-12) (B-12) 1,000 Mcg Tablet, 1 TAB PO DAILY for 30 Days, #30 TAB 0 Refills 05/04/24 Levothyroxine Sodium (Levothyroxine) 50 Mcg Capsule, 1 CAP PO DAILY for 30 Days, #30 CAP 0 Refills 05/04/24 [Azasan] No Conflict Check, 50 MG PO AM 05/04/24 ERWIN PATEL MD August 07, 2024 10:41
[2024-08-07] MEDS ORDERED: PHARMACY COMMUNICATION 1 EACH EACH MISC SCH (13:30)
--- NOTE | 2024-08-07 14:08 | NUR ---
Pt refused PT eval x2 today. PT to re-attempt eval on 08/08/24. Nursing notified.
[2024-08-07] MEDS ORDERED: CEFTRIAXONE 2GM VIAL IVPB SCH (16:00)
--- NOTE | 2024-08-07 16:15 | PN ---
[facility] PROGRESS NOTE Date of Service: August 07, 2024 Time of Service: 16:08 Attending doctor Chris SUBJECTIVE: [ 08/06/24 [Patient is 69 years old female with a past medical history of chronic anemia, GERD, hyperlipidemia, dementia, esophageal structure/stenosis, dysphagia s/p PEG tube placement. Crohn's disease, IBS, depression, hypertension, hypothyroidism, hyperlipidemia, GERD, chronic constipation, takotsubo cardiomyopathy, brain injury, gastric bypass 1991, neck surgery x2, bilateral knee surgery, carpal tunnel release, EGD with stent placement, who came to emergency department via EMS from [facility] for respiratory distress and abdominal pain. Per EMS patient was placed on oxygen and was having problems breathing. Patient is limited on verbalization. Patient was recently hospitalized to [facility] for GI bleed secondary to intestinal puncture. On 07/24/2024 exploratory lap was performed were replacement of G-tube was done with repair of bowel perforation by Dr Mccabe. Most recent 2D echo 07/10/2024 showed 60 to 65% stage I diastolic dysfunction. Most recent vital signs temperature 97.9 pulse 121 respiration 19 blood pressure 93/60 . Patient was placed on Levophed. Patient is satting 95% on 4 L nasal cannula. WBC 30.3 hemoglobin 8.2 hematocrit 24 platelets 820 UA positive for leukocytosis. Sodium 132 potassium 5.0 chloride 100 carbon dioxide 29 BUN 19 creatinine 0.9 GFR 108 lactic 1.9 calcium 8.1 CK 12 troponin 9 , BNP 951 procalcitonin negative. Chest x-ray showed bilateral pulmonary infiltrates suggestive of pulmonary vascular congestion, possible superimposed pneumonitis. CT abdomen/pelvis as pe r radiologist showed marked spleen and ischemic bowel. Surgeon Dr. Armendariz was notified regarding above finding and was consulted. Family members/ at the bedside was notified regards admission in the further plan. Patient will be admitted under hospitalist care for further evaluation/recommendation. Patient will be sent to ICU 08/07/24 patient was seen by nurse practitioner and physician during rounding in room 210. Patient continues to be on Levophed map 90. Patient was seen by surgeon and per her recommendation ascites, ileus, pleural effusion, and a splenic infarct of unknown etiology on Eliquis. No surgical intervention at this moment is recommended. In the meantime placed G-tube was straight drainage NPO for now strict I and loss. Etiology of infarction is unclear. Patient was also evaluated by the product managent intern no new recommendation at this moment. Continue current regimen of medications. Patient will receive pneumococcal vaccine, Hib, meningococcal vaccine as well. at the bedside was informed regards to further plan and recommendations. Patient will also receive 2 g of magnesium. One dose of furosemide IV push will be given to two bilateral lower extremities edema and bilateral upper extremities edema plus four. We will hold fluids for now. WBC 30.3. We will consult ID for antibiotic recommendations. REVIEW OF SYSTEMS CONSTITUTIONAL: Denies fevers, chills, or night sweats. No unintentional weight loss reported. NEUROLOGICAL: Denies headache, amaurosis fugax, motor weakness, sensory deficit, vertigo/spinning sensation, gait abnormalities, or tremors. ENT: No hearing loss, otalgia, otorrhea, rhinitis, rhinorrhea, hoarseness, or sore throat. CARDIOVASCULAR: Denies any exertional angina, dyspnea on exertion, orthopnea, paroxysmal nocturnal dyspnea, palpitations, life-threatening arrhythmias, claudication. PULMONARY: Denies any , cough, phlegm/sputum, hemoptysis, pleuritic chest pain. Patient denies any shortness of breaths SLEEP: Denies morning headaches, daytime somnolence or napping. Denies difficulty falling asleep, staying asleep, waking from sleep. Denies knowledge of snoring. GASTROINTESTINAL: Denies any type of dysphagia to either liquids or solids. Denies nausea, vomiting, pyrosis, early satiety, diarrhea, constipation, or changes in stool consistency or caliber. Denies coffee-ground emesis, hematemesis, hematochezia, or melanotic stools. Patient complaining of abdominal pain GENITOURINARY: Denies frequency, urgency, nocturia, hematuria or incontinence (Storage/Irritative symptoms.) Low urinary stream, straining to void, urinary intermittency or hesitancy, splitting of the voiding stream, terminal dribbling. ENDOCRINOLOGIC: Denies polyuria, polydipsia, polyphagia or heat/cold intolerances. HEMATOLOGIC: Denies thrombophilia/previous clots, or coagulopathy/bleeding disorders. ONCOLOGIC: Denies personal history of malignancy. DERMATOLOGIC: Denies rashes or pruritus. PSYCHIATRIC: Denies any suicidal or homicidal ideation. Denies hallucinations. PHYSICAL EXAM GENERAL APPEARANCE: The patient is awake, alert, and disoriented in no acute cardiopulmonary distress. NEUROLOGICAL: Patient bed-bound. Patient contracted HEENT: Face is symmetric. Pupils are equal and reactive. Extraocular movements are intact. NECK: Supple. No JVD. No thyromegaly. No submental, submandibular, pre- /postauricular, occipital or supraclavicular lymphadenopathy. CHEST: Normal chest expansion. No Telemetry. LUNGS: Absence of any rales, rhonchi or any wheezing. CARDIOVASCULAR: Regular. S1 and S2 normal. No appreciable rubs, murmurs or gallops. ABDOMEN: Soft, , and nondistended. There is no rebound, voluntary guarding, or rigidity. Tender abdomen : Deferred. No Manuel. EXTREMITIES: Non-edematous and not cyanotic. No clubbing. Good capillary refill. SKIN: Multiple skin tears and bilateral lower extremities wounds Vital Signs (last 8hr) Date Time Temp Pulse Resp B/P (MAP) Pulse Ox O2 Delivery O2 Flow Rate FiO2 08/07/24 14:44 95 11 105/59 (74) 99 08/07/24 14:29 101 14 110/69 (83) 98 08/07/24 14:14 103 13 110/69 (83) 98 08/07/24 13:59 96 13 116/68 (84) 96 08/07/24 13:44 97 14 114/65 (81) 98 08/07/24 13:29 93 13 113/73 (86) 98 08/07/24 13:14 99 14 123/76 (92) 98 08/07/24 12:59 98 12 116/70 (85) 99 08/07/24 12:44 102 11 109/72 (84) 98 08/07/24 12:29 94 14 107/76 (86) 99 08/07/24 12:14 105 14 101/69 (80) 98 08/07/24 12:00 Nasal Cannula* 4 36 08/07/24 11:59 104 20 138/62 (87) 97 08/07/24 11:44 106 20 124/73 (90) 97 08/07/24 11:29 100 13 120/67 (84) 98 08/07/24 11:29 100 13 120/67 (84) 98 08/07/24 11:25 108 19 N/Cannula Low lpm 2.0 28 08/07/24 11:25 99 16 08/07/24 11:16 94 15 98 08/07/24 11:14 108 12 125/65 100 08/07/24 11:14 108 12 125/65 (85) 100 08/07/24 11:01 97 13 99 08/07/24 11:00 101 14 99 08/07/24 10:59 96 13 113/68 (83) 99 08/07/24 10:59 96 13 113/68 99 08/07/24 10:46 98 13 99 08/07/24 10:45 110 13 99 08/07/24 10:44 106 14 115/60 (78) 99 08/07/24 10:44 106 14 115/60 99 08/07/24 10:31 99 13 98 08/07/24 10:30 103 14 98 08/07/24 10:29 97 13 114/77 (89) 98 08/07/24 10:29 97 13 114/77 98 08/07/24 10:16 105 13 99 08/07/24 10:15 93 13 99 08/07/24 10:14 96 13 109/61 (77) 99 08/07/24 10:14 96 13 109/61 99 08/07/24 10:01 91 14 98 08/07/24 10:00 94 15 97 08/07/24 09:59 95 14 116/69 98 08/07/24 09:59 95 14 116/69 (85) 98 08/07/24 09:46 101 16 97 08/07/24 09:45 106 15 97 08/07/24 09:44 100 17 99/50 (66) 97 08/07/24 09:44 100 17 99/50 97 08/07/24 09:31 100 23 98 08/07/24 09:30 96 21 96 08/07/24 09:29 99 23 127/79 98 08/07/24 09:29 99 23 127/79 (95) 98 08/07/24 09:16 97 15 98 08/07/24 09:15 98 17 99 08/07/24 09:14 93 16 126/66 (86) 99 08/07/24 09:14 93 16 126/66 99 08/07/24 09:01 95 14 98 08/07/24 09:00 95 17 98 08/07/24 09:00 95 17 98 08/07/24 09:00 95 17 98 08/07/24 08:59 94 17 114/77 98 08/07/24 08:59 94 16 114/77 (89) 98 08/07/24 08:59 94 17 114/77 98 08/07/24 08:45 98 21 99 08/07/24 08:45 98 16 99 08/07/24 08:45 98 17 99 08/07/24 08:44 95 16 116/80 (92) 98 08/07/24 08:44 95 17 116/80 98 08/07/24 08:30 92 16 98 08/07/24 08:30 92 16 98 08/07/24 08:29 96 16 116/69 (85) 98 08/07/24 08:29 96 16 116/69 98 08/07/24 08:15 94 17 98 08/07/24 08:15 94 17 98 08/07/24 08:14 91 18 106/65 (79) 98 08/07/24 08:14 91 18 106/65 98 LABS: Laboratory: Test 08/07/24 05:54 08/07/24 04:02 08/06/24 16:31 08/06/24 15:58 Range/Units Whole Blood Glucose 101 70-110 MG/DL White Blood Count 30.3 *H 4.8-10.8 K/uL Red Blood Count 2.26 L 4.00-5.50 MIL/uL Hemoglobin 7.2 L 12.0-16.0 g/dL Hematocrit 21.3 L 36-48 % Mean Corpuscular Volume 94.2 79-99 fL Mean Corpuscular Hemoglobin 31.9 27.0-33.0 pg Mean Corpuscular Hemoglobin Concent 33.8 32.0-36.0 g/dL Red Cell Distribution Width 17.3 H 11.0-15.5 % Platelet Count 655 H 130-400 K/uL Mean Platelet Volume 9.6 7.5-10.5 fL Immature Granulocyte % (Auto) 1.2 H 0-1 % Neutrophils (%) (Auto) 95.9 H 40.0-77.0 % Lymphocytes (%) (Auto) 1.6 L 21.0-51.0 % Monocytes (%) (Auto) 1.1 L 3.0-13.0 % Eosinophils (%) (Auto) 0.0 0.0-8.0 % Basophils (%) (Auto) 0.2 0.0-5.0 % Neutrophils # (Auto) 29.1 H 1.8-7.7 K/uL Lymphocytes # (Auto) 0.5 L 1.0-4.8 K/uL Monocytes # (Auto) 0.3 0.1-1.0 K/uL Eosinophils # (Auto) 0.00 0.00-0.70 K/uL Basophils # (Auto) 0.06 0.00-0.20 K/uL Absolute Immature Granulocyte (auto 0.36 0-1 K/uL Nucleated Red Blood Cells 0.0 0.0-0.19 % Prothrombin Time 14.0 H 9.6-11.6 SEC Prothromb Time International Ratio 1.36 H 0.85-1.15 Sodium Level 134 L 136-145 mmol/L Potassium Level 4.9 3.5-5.1 mmol/L Chloride Level 104 101-111 mmol/L Carbon Dioxide Level 27 21-32 mmol/L Blood Urea Nitrogen 18 7-18 mg/dL Creatinine 0.3 L 0.5-1.0 mg/dL Glomerular Filtration Rate Calc 116 >90 mL/min Random Glucose 102 70-105 mg/dL Lactic Acid Level 1.2 0.8-2.5 mmol/L Total Calcium 7.7 L 8.5-10.1 mg/dL Magnesium Level 1.30 L 1.80-2.40 mg/dL Total Bilirubin 0.3 0.2-1.0 mg/dL Direct Bilirubin 0.1 0.0-0.3 mg/dL Aspartate Amino Transf (AST/SGOT) 29 10-37 U/L Alanine Aminotransferase (ALT/SGPT) < 6 L 12-78 U/L Alkaline Phosphatase 109 50-136 U/L Ammonia < 10 L 11-32 umol/L Total Creatine Kinase 10 L 21-232 U/L Troponin I High Sensitivity 6.3 4-50 ng/L B-Type Natriuretic Peptide 461 H 0-100 pg/mL Total Protein 4.9 L 6.0-8.3 g/dL Albumin 1.1 L 3.5-5.0 g/dL Procalcitonin 0.35 0.05-0.5 ng/mL Influenza Type A Antigen Negative For Type A NEGATIVE Influenza Type B Antigen Negative For Type B NEGATIVE D-Dimer Quantitative (PE/DVT) 3630 *H 0-500 ng/mL Test 08/06/24 12:47 08/06/24 10:29 Range/Units Urine Color YELLOW YELLOW Urine Appearance CLEAR CLEAR Urine pH 7.5 5.0-8.0 Urine Specific [place] 1.014 1.001-1.031 Urine Protein NEGATIVE NEGATIVE mg/dL Urine Glucose (UA) NEGATIVE NEGATIVE mg/dL Urine Ketones NEGATIVE NEGATIVE mg/dL Urine Occult Blood NEGATIVE NEGATIVE Urine Nitrate NEGATIVE NEGATIVE Urine Bilirubin NEGATIVE NEGATIVE mg/dL Urine Urobilinogen 0.2 0.2-1.0 mg/dL Urine Leukocyte Esterase 75 H NEGATIVE Rachel/uL Urine RBC 0-1 0-1 /HPF Urine WBC 6-10 H 0-1 /HPF Urine Squamous Epithelial Cells RARE 0-2 /HPF Urine Bacteria FEW None Seen /HPF Urine Other Casts 1 None Seen /LPF Segmented Neutrophils % 87 H 40-70 % Lymphocytes % (Manual) 6 L 22-44 % Monocytes % (Manual) 7 2-9 % Differential Comment MANUAL DIFFERENTIAL White Cell Morphology Comment Platelet Morphology Comment INCREASED Red Blood Cell Morphology ANISO 1+ Activated Partial Thromboplast Time 30.8 26.3-35.5 SEC Hemoglobin A1c 4.8 4.0-6.0 % Estimated Average Glucose (eAG) 91 70-126 mg/dL Current Medications Medications (Trade) Dose Ordered Sig/Jennifer Route PRN Reason Start Time Stop Time Status Last Admin Dose Admin Acetaminophen (TYLenol 325MG TAB) 650 mg Q4H PRN PO MILD PAIN (1-3) 08/06/24 15:30 09/05/24 15:29 Acetaminophen (TYLenol 325MG TAB) 650 mg Q6H PRN PO MILD PAIN (1-3) 08/06/24 15:30 08/06/24 15:27 DC Acetaminophen (TYLenol 325MG TAB) 650 mg Q6H PRN PO TEMPERATURE GREATER THAN 101.5 08/06/24 15:30 09/05/24 15:29 Al Hydroxide/Mg Hydroxide (MAALox PLUS 30ML) 30 ml Q6H PRN PO INDIGESTION 08/06/24 15:30 09/05/24 15:29 Albuterol Sulfate (Proventil 0.083% 2.5mg/3ml) 2.5 mg [id number] PRN IH RESPIRATORY SYMPTOMS 08/06/24 15:30 09/05/24 15:29 Cefepime HCl (MAXipime 1 GM vial) 1 gm Q8H IVPB 08/06/24 20:00 08/16/24 19:59 08/07/24 13:50 1 GM Ceftriaxone Sodium 2 gm/ Sodium Chloride 100 ml @ 200 mls/hr Q24H IV 08/06/24 15:30 08/06/24 15:27 DC Ceftriaxone Sodium (Rocephin 2gm Inj) 2 gm Q24H IVPB 08/06/24 16:00 08/06/24 15:37 DC Ceftriaxone Sodium (Rocephin 2gm Inj) 2 gm Q24H IVPB 08/07/24 16:00 08/06/24 17:54 DC Dextrose (D50w) 50 ml AD PRN IV HYPOGLYCEMIA PROTOCOL 08/06/24 15:30 09/05/24 15:29 Diphenhydramine HCl (BENAdryl INJ) 25 mg Q6H PRN IV SEVERE ITCHING/RASH 08/06/24 15:30 09/05/24 15:29 Famotidine (Pepcid 20mg Vial) 20 mg BID PRN IV NAUSEA/VOMITING 08/06/24 15:30 08/06/24 15:26 DC Famotidine (Pepcid 20mg Vial) 20 mg Q24H IV 08/06/24 21:00 09/05/24 20:59 08/06/24 19:48 20 MG Glucagon (Glucagon 1mg Kit) 1 mg AD PRN IM HYPOGLYCEMIA PROTOCOL 08/06/24 15:30 09/05/24 15:29 Guaifenesin/ Dextromethorphan (RobiTUSSin DM 200/20MG 10ML) 10 ml Q4H PRN PO COUGH 08/06/24 15:30 09/05/24 15:29 Heparin Sodium (Porcine) (HEParin 5,000 UNIT VIAL) 5,000 unit BID SQ 08/06/24 21:00 09/05/24 20:59 08/07/24 09:34 5,000 UNIT Hydralazine HCl (APRESOLine 20MG INJ) 10 mg Q6H PRN IV For:SBP above 160;DBP above 90 08/06/24 15:30 09/05/24 15:29 Hydrocortisone Sodium Succinate (Solu-corTEF 100MG) 50 mg Q6H6 IV 08/06/24 18:00 09/05/24 17:59 08/07/24 13:50 50 MG Insulin Human Regular (humuLIN R 100 UNIT/ML 3ML) INSULIN SLIDING SCAL... ACHS SQ 08/06/24 16:30 09/05/24 16:29 Ipratropium [place] (AtrovENT UD) 0.5 mg [id number] IH 08/06/24 18:00 09/05/24 17:59 08/07/24 11:25 0.5 MG Ketorolac Tromethamine (toRADol) 15 mg Q8H PRN IV MODERATE PAIN (4-6) 08/06/24 15:30 08/06/24 15:34 DC Lactulose (Constulose 20gm/ 30ml Udcup) 20 gm BID PRN PO CONSTIPATION 08/06/24 15:30 09/05/24 15:29 Magnesium Sulfate 50 ml @ 0 mls/hr PROTOCOL PRN IV other 08/06/24 15:30 09/05/24 15:29 08/07/24 05:21 0 MLS/HR Magnesium Sulfate (Magnesium 4gm Premix 100ml) 4 gm AD IV 08/07/24 07:00 09/06/24 06:59 Meningococcal Polysaccharide Vacc (Brendanveo T-B-I-w-135-Dip Vial) 1 each ONCE IM 08/07/24 09:30 08/07/24 09:16 DC Metronidazole/ Sodium Chloride (flaGYL) 500 mg Q8H IV 08/06/24 18:00 08/16/24 17:59 08/07/24 09:23 500 MG Morphine Sulfate (morPHINE 2MG SYG) 1 mg Q4H PRN IVP SEVERE PAIN (7-10) 08/06/24 15:30 08/13/24 15:29 08/07/24 13:51 1 MG Nitroglycerin (Nitrostat) 0.4 mg PROTOCOL PRN SL CHEST PAIN 08/06/24 15:30 09/05/24 15:29 Norepinephrine 250 ml @ 0 mls/hr PROTOCOL IV 08/06/24 15:30 09/05/24 15:29 08/07/24 03:23 14 MLS/HR Ondansetron HCl (zoFRAN 4MG INJ) 4 mg Q6H PRN IV NAUSEA/VOMITING 08/06/24 15:30 09/05/24 15:29 Oxycodone/ Acetaminophen (perCOCET) 1 tab Q6H PRN PO SEVERE PAIN (7-10) 08/06/24 15:30 08/06/24 15:27 DC Pharmacy Profile Note (Lace Assessment) 1 each AD MISC 08/07/24 13:30 08/14/24 13:29 Piperacillin Sod/ Tazobactam Sod (Zosyn 3.375gm+NS 50ml) 3.375 gm Q12H IV 08/06/24 12:30 08/06/24 15:14 DC 08/06/24 13:05 3.375 GM Potassium Chloride 100 ml @ 100 mls/hr AD PRN IV POTASSIUM PROTOCOL 08/06/24 15:30 09/05/24 15:29 Potassium Chloride (K-Dur 10meq Sr Tab) 10 meq AD PRN PO POTASSIUM PROTOCOL 08/06/24 15:30 09/05/24 15:29 Potassium Chloride (KCl 10% Elixir 20meq/15ml) 10 meq AD PRN PO POTASSIUM PROTOCOL 08/06/24 15:30 09/05/24 15:29 Sodium Chloride 1,000 ml @ 100 mls/hr Q10H IV 08/06/24 15:30 08/07/24 14:05 DC 08/06/24 15:35 100 MLS/HR Vancomycin HCl (Vancomycin 750mg) 750 mg Q12H IVPB 08/07/24 06:00 08/17/24 05:59 08/07/24 05:21 750 MG Vancomycin HCl (Vancomycin Protocol) 1 each PROTOCOL PRN IV VANCOMYCIN PROTOCOL 08/06/24 15:30 08/20/24 15:29 Zolpidem Tartrate (AmbIEN) 5 mg HS PRN PO INSOMNIA 08/06/24 15:30 09/05/24 15:29 DIAGNOSTICS / RADIOLOGY: [ ] ASSESSMENT: [ Acute sepsis secondary to ischemic bowel, UTI POA Acute hypoxic respiratory failure POA Infarcted spleen per CT abdomen/pelvis POA Ischemic bowel per CT abdomen/pelvis POA Hypotension requiring Levophed drip POA Acute complicated cystitis POA Acute on chronic diastolic congestive heart failure 2D echo 60 to 65 % stage I dysfunction 07/10/2024 Esophageal structure/stenosis 07/24/2024 exploratory lap repair of G-tube repair of perforation Crohn's disease POA IBS POA Thrombocytopenia POA Depression POA Hypertension POA Hypothyroidism POA Chronic constipation POA Takotsubo cardiomyopathy POA Debility and frailty POA Chronic anemia POA GERD, POA Hyperlipidemia POA Multiple skin tears on arms with bilateral lower extremities wounds POA Dementia POA History of Recent GI bleedon previous admission due secondary to intestinal puncture History of brain injury History of EGD with stent placement 07/14/2024 History of carpal tunnel release History of neck surgery x2 History of bilateral knee surgery History of EGD with stent placement 07/14/2024] PLAN: [Admit to: ICU Consults: ICU, surgeon, ID, product managent intern Antibiotics: Rocephin, vancomycin Drips Levophed Fluids normal saline at 100 mL/hours NEURO: Minimize central acting medications as possible. Fall Precautions. Well lighted room through the day and minimize interruptions through the night to prevent acute delirium. PULMONARY: Chest x-ray showed bilateral pulmonary infiltrate suggestive of pulmonary vascular congestion, possible superimposed pneumonitis Supplemental 02 as needed BiPAP as necessary, for respiratory distress Titrate Fio2 to keep Spo2 > or = 90% DuoNebs and CPT as needed IS hourly while awake for pulmonary hygiene Out of bed to chair as tolerated VAP Bundle Maintain aspiration precautions at all times CARDIOVASCULAR: As per product managent intern no further workup needed at this moment Follow hemodynamics. Vital signs per facility protocol GI & NUTRITION: Occult pending CT abdomen/pelvis showed infarct spleen, ischemic bowel use Continue nutritional support Aspirations precautions Prokinetic agents and laxatives as needed KIDNEYS & ELECTROLYTES: Strict monitoring of intake and output Daily weights Avoid nephrotoxic agents Monitor electrolytes and replace as needed Goal urine output of 30mL/hr or 0.5mL/kg/hr Medications to be dosed according to renal function. Avoid contrast if possible ENDOCRINE: Maintain blood glucose between 100-180 at all times. Insulin sliding scale for blood glucose management Hypoglycemia and hyperglycemia protocol in place INFECTIOUS DISEASE: Infectious disease doctor consulted Blood culture pending Urine culture pending Trend temperature, WBC and procalcitonin level Follow cultures, deescalate antibiotics as soon as possible. Panculture if new onset fever HEMATOLOGY & COAGULATION: Monitor H&H. Keep Hgb > 7 Transfuse 1 unit of PRBC for Hgb < 7 Transfuse 1 pack of platelets of platelets < 20, 000 Watch for any signs and symptoms of bleeding SKIN: Pressure ulcer prevention per facility protocol Specialty mattress as needed As per surgeon no further workup needed at this moment Treatment plan discussed with patient and family at the bedside Medications to be reconciled once obtained by patient and/or family and available to be reconciled in computer p.r.n. medication for pain nausea and vomiting Questions were answered We will continue to monitor the patient closely [employer] for disposition Rehab: PT/OT GI: PPI DVT: SCD's Code Status: Full Resuscitation Disposition: TBD Prognosis: Guarded ] ATTESTATION BY PHYSICIAN I have seen and examined the patient. I reviewed the documentation, medical decision making, and treatment plan as noted by the mid-level provider above. I agree with the findings and plan of care. RUPERTO Pruett MD [employer] August 07, 2024 16:15
--- NOTE | 2024-08-07 17:31 | PN ---
[facility] PROGRESS NOTE Date Patient Seen: August 07, 2024 Time of Visit: 17:28 Supervising Physician: Dr. Lara Primary Care Physician: Dr. John Hopson Outpatient Specialists: [ ] Inpatient Consults: [ ] PROBLEM LIST: Acute hypoxemic respiratory failure POA. Acute sepsis and shock from intra-abdominal source POA. Infarcted spleen noted on CT abdomen and pelvis, POA. Ischemic bowel noted on CT abdomen and pelvis, POA. Chronic anemia POA Hypothyroidism POA Hyperlipidemia POA Hypertension POA GERD POA Severe protein calorie malnutrition POA Cachexia POA Mulitple wounds POA Debility and frailty POA Depression POA Dementia POA. History Of esophageal stricture POA Recent suspected bowel perforation, ruled out s/p exploratory laparotomy with lysis of adhesions and placement of a gastrostomy tube 22 [place] on 07/24/2024 INTERVAL HISTORY: 08/07/2024: At the time of my evaluation, the patient is lying in bed. She is obtunded. The patient remains on nasal cannula we will optimal oxygen saturation. On the monitor, she is hemodynamically stable. Laboratory data today showed no significant change of WBC, today 30.3, H&H 7.2/21.3 and a platelet count of 655. Chemistry panel was notable for a magnesium of 1.30. No coagulopathy. Blood cultures x2 were negative urine sample was sent for culture and is pending report. No repeat imaging for today. Currently, the patient continues on antibiotic coverage with cefepime, metronidazole and vancomycin. The patient remains on Levophed drip with Solu-Cortef IV. No other complaint. REVIEW OF SYSTEMS: 12 point ROS reviewed with patient. Pertinent positives mentioned above. Otherwise negative. PHYSICAL EXAM: GENERAL: Obtunded HEENT: EOMI, Sclera non icteric, moist mucosa NECK: Supple, no JVD, trachea midline LUNGS: Clear breath sounds bilaterally. No wheezes HEART: Regular rate and rhythm. Normal S1 and S2, without murmurs ABD: Abdomen soft, nontender. Bowel sounds present EXT: No clubbing cyanosis or edema NEURO: Minimal interaction Vital Signs (last 8hr) Date Time Temp Pulse Resp B/P (MAP) Pulse Ox O2 Delivery O2 Flow Rate FiO2 08/07/24 14:44 95 11 105/59 (74) 99 08/07/24 14:29 101 14 110/69 (83) 98 08/07/24 14:14 103 13 110/69 (83) 98 08/07/24 13:59 96 13 116/68 (84) 96 08/07/24 13:44 97 14 114/65 (81) 98 08/07/24 13:30 94 14 98 08/07/24 13:29 93 13 113/73 98 08/07/24 13:29 93 13 113/73 (86) 98 08/07/24 13:15 98 14 98 08/07/24 13:14 99 14 123/76 98 08/07/24 13:14 99 14 123/76 (92) 98 08/07/24 13:00 95 12 99 08/07/24 12:59 98 12 116/70 (85) 99 08/07/24 12:59 98 12 116/70 99 08/07/24 12:45 97 13 98 08/07/24 12:44 102 11 109/72 (84) 98 08/07/24 12:44 102 11 109/72 98 08/07/24 12:30 97 14 98 08/07/24 12:29 94 14 107/76 99 08/07/24 12:29 94 14 107/76 (86) 99 08/07/24 12:15 103 13 98 08/07/24 12:14 105 14 101/69 (80) 98 08/07/24 12:14 105 14 101/69 98 08/07/24 12:00 Nasal Cannula* 4 36 08/07/24 12:00 102 18 97 08/07/24 11:59 104 20 138/62 (87) 97 08/07/24 11:59 104 20 138/62 97 08/07/24 11:45 101 15 98 08/07/24 11:44 106 20 124/73 97 08/07/24 11:44 106 20 124/73 (90) 97 08/07/24 11:30 102 12 98 08/07/24 11:29 100 13 120/67 (84) 98 08/07/24 11:29 100 13 120/67 98 08/07/24 11:29 100 13 120/67 (84) 98 08/07/24 11:25 108 19 N/Cannula Low lpm 2.0 28 08/07/24 11:25 99 16 08/07/24 11:16 94 15 98 08/07/24 11:15 100 14 100 08/07/24 11:14 108 12 125/65 100 08/07/24 11:14 108 12 125/65 (85) 100 08/07/24 11:01 97 13 99 08/07/24 11:00 101 14 99 08/07/24 10:59 96 13 113/68 (83) 99 08/07/24 10:59 96 13 113/68 99 08/07/24 10:46 98 13 99 08/07/24 10:45 110 13 99 08/07/24 10:44 106 14 115/60 (78) 99 08/07/24 10:44 106 14 115/60 99 08/07/24 10:31 99 13 98 08/07/24 10:30 103 14 98 08/07/24 10:29 97 13 114/77 (89) 98 08/07/24 10:29 97 13 114/77 98 08/07/24 10:16 105 13 99 08/07/24 10:15 93 13 99 08/07/24 10:14 96 13 109/61 (77) 99 08/07/24 10:14 96 13 109/61 99 08/07/24 10:01 91 14 98 08/07/24 10:00 94 15 97 08/07/24 09:59 95 14 116/69 98 08/07/24 09:59 95 14 116/69 (85) 98 08/07/24 09:46 101 16 97 08/07/24 09:45 106 15 97 08/07/24 09:44 100 17 99/50 (66) 97 08/07/24 09:44 100 17 99/50 97 08/07/24 09:31 100 23 98 08/07/24 09:30 96 21 96 08/07/24 09:29 99 23 127/79 98 08/07/24 09:29 99 23 127/79 (95) 98 LABS: Hematology Labs: Test 08/07/24 04:02 08/06/24 10:29 Range/Units White Blood Count 30.3 *H 4.8-10.8 K/uL Red Blood Count 2.26 L 4.00-5.50 MIL/uL Hemoglobin 7.2 L 12.0-16.0 g/dL Hematocrit 21.3 L 36-48 % Mean Corpuscular Volume 94.2 79-99 fL Mean Corpuscular Hemoglobin 31.9 27.0-33.0 pg Mean Corpuscular Hemoglobin Concent 33.8 32.0-36.0 g/dL Red Cell Distribution Width 17.3 H 11.0-15.5 % Platelet Count 655 H 130-400 K/uL Mean Platelet Volume 9.6 7.5-10.5 fL Immature Granulocyte % (Auto) 1.2 H 0-1 % Neutrophils (%) (Auto) 95.9 H 40.0-77.0 % Lymphocytes (%) (Auto) 1.6 L 21.0-51.0 % Monocytes (%) (Auto) 1.1 L 3.0-13.0 % Eosinophils (%) (Auto) 0.0 0.0-8.0 % Basophils (%) (Auto) 0.2 0.0-5.0 % Neutrophils # (Auto) 29.1 H 1.8-7.7 K/uL Lymphocytes # (Auto) 0.5 L 1.0-4.8 K/uL Monocytes # (Auto) 0.3 0.1-1.0 K/uL Eosinophils # (Auto) 0.00 0.00-0.70 K/uL Basophils # (Auto) 0.06 0.00-0.20 K/uL Absolute Immature Granulocyte (auto 0.36 0-1 K/uL Nucleated Red Blood Cells 0.0 0.0-0.19 % Segmented Neutrophils % 87 H 40-70 % Lymphocytes % (Manual) 6 L 22-44 % Monocytes % (Manual) 7 2-9 % Differential Comment MANUAL DIFFERENTIAL White Cell Morphology Comment Platelet Morphology Comment INCREASED Red Blood Cell Morphology ANISO 1+ Chemistry Labs: Test 08/07/24 17:04 08/07/24 04:02 08/06/24 10:29 Range/Units Whole Blood Glucose 89 70-110 MG/DL Sodium Level 134 L 136-145 mmol/L Potassium Level 4.9 3.5-5.1 mmol/L Chloride Level 104 101-111 mmol/L Carbon Dioxide Level 27 21-32 mmol/L Blood Urea Nitrogen 18 7-18 mg/dL Creatinine 0.3 L 0.5-1.0 mg/dL Glomerular Filtration Rate Calc 116 >90 mL/min Random Glucose 102 70-105 mg/dL Lactic Acid Level 1.2 0.8-2.5 mmol/L Total Calcium 7.7 L 8.5-10.1 mg/dL Magnesium Level 1.30 L 1.80-2.40 mg/dL Total Bilirubin 0.3 0.2-1.0 mg/dL Direct Bilirubin 0.1 0.0-0.3 mg/dL Aspartate Amino Transf (AST/SGOT) 29 10-37 U/L Alanine Aminotransferase (ALT/SGPT) < 6 L 12-78 U/L Alkaline Phosphatase 109 50-136 U/L Ammonia < 10 L 11-32 umol/L Total Creatine Kinase 10 L 21-232 U/L Troponin I High Sensitivity 6.3 4-50 ng/L B-Type Natriuretic Peptide 461 H 0-100 pg/mL Total Protein 4.9 L 6.0-8.3 g/dL Albumin 1.1 L 3.5-5.0 g/dL Procalcitonin 0.35 0.05-0.5 ng/mL Hemoglobin A1c 4.8 4.0-6.0 % Estimated Average Glucose (eAG) 91 70-126 mg/dL Coagulation Labs: Test 08/07/24 04:02 08/06/24 15:58 08/06/24 10:29 Range/Units Prothrombin Time 14.0 H 9.6-11.6 SEC Prothromb Time International Ratio 1.36 H 0.85-1.15 D-Dimer Quantitative (PE/DVT) 3630 *H 0-500 ng/mL Activated Partial Thromboplast Time 30.8 26.3-35.5 SEC DIAGNOSTICS / RADIOLOGY RESULTS: [ ] PLAN The patient was admitted into the ICU on a Levophed drip. Critical Care was consulted for aggressive management of sepsis and shock. For now, the patient will continue on the Levophed drip and we will adjust as necessary to maintain map above 65. I am going to discontinue the IV Rocephin and change the patient to cefepime, Flagyl and vanco. We will start the patient on Solu-Cortef 50 mg IV q.6 we will continue with IV fluids for rehydration. General surgeon is on board we will follow up on her plan for further management. The patient will remain on nasal cannula for oxygen supplementation and we will adjust as necessary. We will repeat surveillance labs in the morning. We will monitor the patient's progress and response to management. We will continue provide general supportive care, GI and DVT prophylaxis. Further orders per attending MD and hospital course. 08/07/2024: For now, going to continue current management for the patient. The patient will remain on pressor therapy as well as Solu-Cortef and we will monitor the blood pressure trend. We will continue oxygen supplementation via nasal cannula. On CT of the abdomen adjacent to the PEG tube entry site, there was noticeable abnormality concerning for subcutaneous air versus organizing fluid consistent with abscess. We will discuss with finding with the general surgeon. In the meantime, the patient will continue on antibiotic therapy as ordered. Primary team was consulted to further guide antibiotic therapy. Considering the prior report of splenic infarct and ischemic bowel, I am going to request a limited echo to rule out any intracardiac thrombus. I discussed the findings and plan for further management with the spouse was present at the bedside and staff nurse. We will monitor the patient's progress and response to management. We will continue to provide general supportive care, GI and DVT prophylaxis. Further orders per attending MD and hospital course. NEURO: Minimize central acting medications as possible. Fall Precautions. Well lighted room through the day and minimize interruptions through the night to prevent acute delirium. PULMONARY: Supplemental 02 as needed Titrate Fio2 to keep Spo2 > or = 90% DuoNebs and CPT as needed IS hourly while awake for pulmonary hygiene Out of bed to chair as tolerated VAP Bundle CARDIOVASCULAR: Follow hemodynamics. Titrate vasopressor to keep MAP >65 or systolic blood pressure >95mmHg DIPS: Levophed LINES: PICC GI & NUTRITION: Continue nutritional support Aspirations precautions Prokinetic agents and laxatives as needed KIDNEYS & ELECTROLYTES: Strict monitoring of intake and output Daily weights Avoid nephrotoxic agents Monitor electrolytes and replace as needed Goal urine output of 30mL/hr or 0.5mL/kg/hr Urine output: [ ] Fluid Balance: [ ] ENDOCRINE: Maintain blood glucose between 100-180 at all times. Insulin sliding scale for blood glucose management INFECTIOUS DISEASE: Trend temperature. Jon-culture if febrile. Micro: [ ] Antibiotics: cefepime, Flagyl and vanco. HEMATOLOGY & COAGULATION: Monitor H&H. Keep Hgb > 7 Transfuse 1 unit of PRBC for Hgb < 7 Transfuse 1 pack of platelets of platelets < 20, 000 Watch for any signs and symptoms of bleeding SKIN: Pressure ulcer prevention per facility protocol Rehab: PT/OT Prophylaxis: GI: Famotidine DVT: Heparin Code Status: Full Resuscitation Disposition: ICU Other: I personally spent 48 minutes of critical care time in treatment of this patient. This includes patient management, time at bedside, time reviewing tests, labs, appropriate images and studies, documentation, and patient care coordination. This time excludes separately billable procedures. Case was discussed and seen with my supervising physician. The above plan was formulated and agreed upon. VALDEMAR PATEL NP August 07, 2024 17:31
[2024-08-08] VITALS (67 sets, daily range): BP systolic 97–159; BP diastolic 45–101; PULSE 59–104; RESP 11–21; TEMP 96.8–98.3; O2SAT 98–100
[2024-08-08 06:19] LABS: BASOPHILS # (AUTO) 0.06 K/uL (0.00-0.20); BASOPHILS % (AUTO) 0.2 % (0.0-5.0); HEMATOCRIT 21.5 % (36-48); IMMATURE GRANULOCYTE ABSOLUTE 0.79 K/uL (0-1); LYMPHOCYTES # (AUTO) 0.7 K/uL (1.0-4.8); LYMPHOCYTES % (AUTO) 2.2 % (21.0-51.0); MEAN CORPUSCULAR HEMOGLOBIN 31.3 pg (27.0-33.0); MEAN CORPUSCULAR VOLUME 92.3 fL (79-99); MONOCYTES # (AUTO) 0.8 K/uL (0.1-1.0); MONOCYTES % (AUTO) 2.6 % (3.0-13.0); NEUTROPHILS # (AUTO) 28.4 K/uL (1.8-7.7); NEUTROPHILS % (AUTO) 92.4 % (40.0-77.0); RED BLOOD CELL COUNT(AUTO) 2.33 MIL/uL (4.00-5.50); RED CELL DISTRIBUTION WIDTH 17.6 % (11.0-15.5)
[2024-08-08 06:21] LABS: WHITE BLOOD COUNT (AUTO) 30.7 K/uL (4.8-10.8)
[2024-08-08 06:22] LABS: PLATELET COUNT (AUTO) 815 K/uL (130-400)
[2024-08-08 06:42] LABS: ALBUMIN 1.2 g/dL (3.5-5.0); BILIRUBIN,TOTAL 0.2 mg/dL (0.2-1.0); CREATININE 0.4 mg/dL (0.5-1.0); POTASSIUM 4.4 mmol/L (3.5-5.1); TOTAL PROTEIN, SERUM 5.1 g/dL (6.0-8.3); VANCOMYCIN TROUGH 15.7 UG/ML (10.0-20.0)
[2024-08-08 07:30] LABS: MAN.DIFF COMMENT-IMPRESSION MANUAL DIFFERENTIAL; MONOCYTES % (MANUAL) 2 % (2-9); PLATELET MORPHOLOGY COMMENT INCREASED; SEGMENTED NEUTROPHILS % 98 % (40-70); TOTAL CELLS COUNTED 100
--- NOTE | 2024-08-08 10:52 | HMCSR ---
APPROVED REPORT EXAM: LIMITED Two-dimensional and M-mode echocardiogram. INDICATION ICD: Concern for intracardiac thrombus 2D Dimensions RVDd2.8 cmLVED Vol(simp.)78.0 mL LVES Vol(simp.)31.0 mL LVEF(%, simp.)58 % LA ESV INDEX (BP)31.11 mL/m2 Deformation Strain Apical 4-18.6 % Apical 2-19.0 % Apical 3-18.5 % Global Strain-18.7 % Left Ventricle Left ventricular cavity size is normal. There is normal LV segmental wall motion. LVEF is 55-60%. The re is no thrombus visualized in the left ventricle. Right Ventricle The right ventricle is normal size. There is no thrombus visualized in the right ventricle. Atria The left atrium size is normal. No thrombus is visualized in the left atrium. The right atrium size i s normal. No thrombus is visualized in the right atrium. Aortic Valve Aortic valve leaflets open well. Mitral Valve Mitral valve leaflets open well. Tricuspid Valve Tricuspid valve leaflets open well. Conclusion LVEF is 55-60%. There is no thrombus visualized in the left ventricle. The left atrium size is normal. No thrombus is visualized in the left atrium. The right atrium size is normal. No thrombus is visualized in the right atrium.
--- NOTE | 2024-08-08 11:37 | PN ---
PT awake/alert off pressors comfortable abdomen soft nt incision c/d/i small non pressure wound rle bilateral heel dti no evidence peritonitis restart enteral feeds, d/c franco heel protectors PT oob medihoney to open wound 3x/week no surgical intervention reconsult as needed Vitals/Labs Vital Signs Date Time Temp Pulse Resp B/P (MAP) Pulse Ox O2 Delivery O2 Flow Rate FiO2 08/08/24 11:11 94 17 08/08/24 11:00 116/66 (83) 100 08/08/24 08:00 Nasal Cannula* 2 28 08/08/24 07:30 97.3 Laboratory Tests 08/08/24 05:56 Medications Current Medications Sodium Chloride 1,266 ml @ 422 mls/hr ONCE ONCE IV Last administered on 08/06/24at 10:13; Start 08/06/24 at 10:30; Stop 08/06/24 at 13:29; Status DC Ceftriaxone Sodium 1 gm ONCE ONCE IVPB Last administered on 08/06/24at 10:12; Start 08/06/24 at 10:30; Stop 08/06/24 at 10:31; Status DC Morphine Sulfate 2 mg ONCE ONCE IVP Last administered on 08/06/24at 11:20; Start 08/06/24 at 11:30; Stop 08/06/24 at 11:31; Status DC Ondansetron HCl 4 mg ONCE ONCE IVP Last administered on 08/06/24at 11:20; Start 08/06/24 at 11:30; Stop 08/06/24 at 11:31; Status DC Ceftriaxone Sodium 1 gm ONCE ONCE IVPB; Start 08/06/24 at 12:00; Stop 08/06/24 at 11:53; Status DC Sodium Chloride 1,266 ml @ 422 mls/hr ONCE ONCE IV; Start 08/06/24 at 12:00; Stop 08/06/24 at 11:53; Status DC Piperacillin Sod/ Tazobactam Sod 3.375 gm Q12H IV Last administered on 08/06/24at 13:05; Start 08/06/24 at 12:30; Stop 08/06/24 at 15:14; Status DC Iohexol 75 ml STK-MED ONCE IV; Start 08/06/24 at 12:45; Stop 08/06/24 at 12:46; Status DC Norepinephrine 250 ml @ 0 mls/hr PROTOCOL IV Last administered on 08/07/24at 03:23; Start 08/06/24 at 15:30; Stop 09/05/24 at 15:29 Insulin Human Regular INSULIN SLIDING SCAL... ACHS SQ; Start 08/06/24 at 16:30; Stop 09/05/24 at 16:29 Dextrose 50 ml AD PRN IV; Start 08/06/24 at 15:30; Stop 09/05/24 at 15:29 Glucagon 1 mg AD PRN IM; Start 08/06/24 at 15:30; Stop 09/05/24 at 15:29 Potassium Chloride 100 ml @ 100 mls/hr AD PRN IV; Start 08/06/24 at 15:30; Stop 09/05/24 at 15:29 Potassium Chloride 10 meq AD PRN PO; Start 08/06/24 at 15:30; Stop 09/05/24 at 15:29 Potassium Chloride 10 meq AD PRN PO; Start 08/06/24 at 15:30; Stop 09/05/24 at 15:29 Magnesium Sulfate 50 ml @ 0 mls/hr PROTOCOL PRN IV Last administered on 08/07/24at 05:21; Start 08/06/24 at 15:30; Stop 09/05/24 at 15:29 Diphenhydramine HCl 25 mg Q6H PRN IV; Start 08/06/24 at 15:30; Stop 09/05/24 at 15:29 Acetaminophen 650 mg Q6H PRN PO; Start 08/06/24 at 15:30; Stop 09/05/24 at 15:29 Acetaminophen 650 mg Q4H PRN PO; Start 08/06/24 at 15:30; Stop 09/05/24 at 15:29 Ondansetron HCl 4 mg Q6H PRN IV; Start 08/06/24 at 15:30; Stop 09/05/24 at 15:29 Zolpidem Tartrate 5 mg HS PRN PO; Start 08/06/24 at 15:30; Stop 09/05/24 at 15:29 Al Hydroxide/Mg Hydroxide 30 ml Q6H PRN PO; Start 08/06/24 at 15:30; Stop 09/05/24 at 15:29 Lactulose 20 gm BID PRN PO; Start 08/06/24 at 15:30; Stop 09/05/24 at 15:29 Nitroglycerin 0.4 mg PROTOCOL PRN SL; Start 08/06/24 at 15:30; Stop 09/05/24 at 15:29 Guaifenesin/ Dextromethorphan 10 ml Q4H PRN PO; Start 08/06/24 at 15:30; Stop 09/05/24 at 15:29 Ipratropium [place] 0.5 mg [id number] IH Last administered on 08/08/24at 11:09; Start 08/06/24 at 18:00; Stop 09/05/24 at 17:59 Famotidine 20 mg BID PRN IV; Start 08/06/24 at 15:30; Stop 08/06/24 at 15:26; Status DC Albuterol Sulfate 2.5 mg [id number] PRN IH; Start 08/06/24 at 15:30; Stop 09/05/24 at 15:29 Heparin Sodium (Porcine) 5,000 unit BID SQ Last administered on 08/08/24at 08:43; Start 08/06/24 at 21:00; Stop 09/05/24 at 20:59 Acetaminophen 650 mg Q6H PRN PO; Start 08/06/24 at 15:30; Stop 08/06/24 at 15:27; Status DC Ketorolac Tromethamine 15 mg Q8H PRN IV; Start 08/06/24 at 15:30; Stop 08/06/24 at 15:34; Status DC Oxycodone/ Acetaminophen 1 tab Q6H PRN PO; Start 08/06/24 at 15:30; Stop 08/06/24 at 15:27; Status DC Morphine Sulfate 1 mg Q4H PRN IVP Last administered on 08/08/24at 04:25; Start 08/06/24 at 15:30; Stop 08/13/24 at 15:29 Vancomycin HCl 1 each PROTOCOL PRN IV; Start 08/06/24 at 15:30; Stop 08/20/24 at 15:29 Sodium Chloride 1,000 ml @ 100 mls/hr Q10H IV Last administered on 08/06/24at 15:35; Start 08/06/24 at 15:30; Stop 08/07/24 at 14:05; Status DC Ceftriaxone Sodium 2 gm/ Sodium Chloride 100 ml @ 200 mls/hr Q24H IV; Start 08/06/24 at 15:30; Stop 08/06/24 at 15:27; Status DC Hydralazine HCl 10 mg Q6H PRN IV; Start 08/06/24 at 15:30; Stop 09/05/24 at 15:29 Famotidine 20 mg Q24H IV Last administered on 08/07/24at 21:19; Start 08/06/24 at 21:00; Stop 09/05/24 at 20:59 Ceftriaxone Sodium 2 gm Q24H IVPB; Start 08/06/24 at 16:00; Stop 08/06/24 at 15:37; Status DC Ceftriaxone Sodium 2 gm Q24H IVPB; Start 08/07/24 at 16:00; Stop 08/06/24 at 17:54; Status DC Vancomycin HCl 250 ml @ 125 mls/hr ONCE ONCE IV Last administered on 08/06/24at 16:23; Start 08/06/24 at 16:00; Stop 08/06/24 at 17:59; Status DC Vancomycin HCl 750 mg Q12H IVPB Last administered on 08/08/24at 06:53; Start 08/07/24 at 06:00; Stop 08/17/24 at 05:59 Cefepime HCl 1 gm Q8H IVPB Last administered on 08/08/24at 10:40; Start 08/06/24 at 20:00; Stop 08/16/24 at 19:59 Metronidazole/ Sodium Chloride 500 mg Q8H IV Last administered on 08/08/24at 10:40; Start 08/06/24 at 18:00; Stop 08/16/24 at 17:59 Hydrocortisone Sodium Succinate 50 mg Q6H6 IV Last administered on 08/08/24at 10:40; Start 08/06/24 at 18:00; Stop 09/05/24 at 17:59 Magnesium Sulfate 4 gm AD IV; Start 08/07/24 at 07:00; Stop 09/06/24 at 06:59 Furosemide 40 mg ONCE ONCE IV Last administered on 08/07/24at 09:33; Start 08/07/24 at 09:30; Stop 08/07/24 at 09:31; Status DC Hepatitis B Vaccine 0.5 ml ONCE ONCE IM Last administered on 08/07/24at 09:26; Start 08/07/24 at 09:30; Stop 08/07/24 at 09:31; Status DC Pneumococcal Polyvalent Vaccine 0.5 ml ONCE ONCE IM Last administered on 08/07/24at 09:30; Start 08/07/24 at 09:30; Stop 08/07/24 at 09:31; Status DC Meningococcal Polysaccharide Vacc 1 each ONCE IM; Start 08/07/24 at 09:30; Stop 08/07/24 at 09:16; Status DC Pharmacy Profile Note 1 each AD MISC; Start 08/07/24 at 13:30; Stop 08/14/24 at 13:29 FATUMA AU MD August 08, 2024 11:36
[2024-08-08] MEDS: HONEY 1 APPL/ML TUBE TP SCH (11:42)
--- NOTE | 2024-08-08 13:08 | NUR ---
CM NOTE Met with pt's spouse, states pt bedbound, has been at [facility] for a few years skilled and non skilled. bedbound. total care. [facility] plan is back to [facility] at [place]. JJ/CL Obtained. Addendum: 08/08/24 at 1317 by TERA WEINBERG CM Amended: Links added.
--- NOTE | 2024-08-08 15:12 | PN ---
[facility] PROGRESS NOTE Date Patient Seen: August 08, 2024 Time of Visit: 15:09 Supervising Physician: Dr. Lara Primary Care Physician: Dr. John Hopson Outpatient Specialists: [ ] Inpatient Consults: [ ] PROBLEM LIST: Acute hypoxemic respiratory failure POA. Acute sepsis and shock from intra-abdominal source POA. Infarcted spleen noted on CT abdomen and pelvis, POA. Ischemic bowel noted on CT abdomen and pelvis, POA. Chronic anemia POA Hypothyroidism POA Hyperlipidemia POA Hypertension POA GERD POA Severe protein calorie malnutrition POA Cachexia POA Mulitple wounds POA Debility and frailty POA Depression POA Dementia POA. History Of esophageal stricture POA Recent suspected bowel perforation, ruled out s/p exploratory laparotomy with lysis of adhesions and placement of a gastrostomy tube 22 [place] on 07/24/2024 INTERVAL HISTORY: 08/07/2024: At the time of my evaluation, the patient is lying in bed. She is obtunded. The patient remains on nasal cannula we will optimal oxygen saturation. On the monitor, she is hemodynamically stable. Laboratory data today showed no significant change of WBC, today 30.3, H&H 7.2/21.3 and a platelet count of 655. Chemistry panel was notable for a magnesium of 1.30. No coagulopathy. Blood cultures x2 were negative urine sample was sent for culture and is pending report. No repeat imaging for today. Currently, the patient continues on antibiotic coverage with cefepime, metronidazole and vancomycin. The patient remains on Levophed drip with Solu-Cortef IV. No other complaint. 08/08/2024: At the time of my evaluation, the patient is lying in bed. She is more awake and verbally interactive today. She remains on nasal cannula for oxygen supplementation and is otherwise hemodynamically stable. The laboratory data today showed persisting elevated WBC count today 30.7, H&H 7.3/21.5 and a platelet count of 815. Chemistry panel was notable for a BNP level of 380, total protein of 5.1 and a albumin of 1.2.. Microbiology data currently showing urine culture positive for Gram-positive cocci in chains possible Enterococcus species and Rehana albicans. Blood culture preliminary results showing yeast. Limited 2D echo ordered showed a LVEF of 55-60%, there was no thrombus visualized in the left ventricle and remaining exam showed no changes of concern. Currently, the patient remains on antibiotic coverage with vancomycin, cefepime and Flagyl. Pressor therapy was discontinued and the patient remains on Solu-Cortef. No other complaint. REVIEW OF SYSTEMS: 12 point ROS reviewed with patient. Pertinent positives mentioned above. Otherwise negative. PHYSICAL EXAM: GENERAL: Awake, alert and oriented x2 HEENT: EOMI, Sclera non icteric, moist mucosa NECK: Supple, no JVD, trachea midline LUNGS: Clear breath sounds bilaterally. No wheezes HEART: Regular rate and rhythm. Normal S1 and S2, without murmurs ABD: Abdomen soft, nontender. Bowel sounds present EXT: No clubbing cyanosis or edema NEURO: Able to follow commands Vital Signs (last 8hr) Date Time Temp Pulse Resp B/P (MAP) Pulse Ox O2 Delivery O2 Flow Rate FiO2 08/08/24 14:00 92 13 105/54 (71) 100 08/08/24 13:45 93 15 104/63 (77) 99 08/08/24 13:30 91 13 109/70 (83) 99 08/08/24 13:15 100 15 107/63 (78) 83 08/08/24 13:00 94 12 112/45 (67) 99 08/08/24 12:45 94 13 109/65 (80) 99 08/08/24 12:30 100 12 102/76 (85) 98 08/08/24 12:15 104 12 103/61 (75) 98 08/08/24 12:00 92 14 104/71 (82) 97 08/08/24 12:00 Nasal Cannula* 2 28 08/08/24 11:45 98 14 103/71 (82) 97 08/08/24 11:15 98.1 89 12 100/66 (77) 95 08/08/24 11:11 94 17 08/08/24 11:00 89 12 116/66 (83) 100 08/08/24 10:45 93 16 111/61 (78) 99 08/08/24 10:30 89 14 99/67 (78) 100 08/08/24 10:15 89 11 100/70 (80) 99 08/08/24 10:00 92 12 97/60 (72) 98 08/08/24 09:45 99 13 112/54 (73) 99 08/08/24 09:30 98 11 104/59 (74) 89 08/08/24 09:15 87 14 109/76 (87) 95 08/08/24 09:00 90 13 110/63 (79) 95 08/08/24 08:45 94 17 110/71 (84) 97 08/08/24 08:30 103 16 114/78 (90) 100 08/08/24 08:15 95 13 130/75 (93) 100 08/08/24 08:00 Nasal Cannula* 2 28 08/08/24 07:45 88 13 104/72 (83) 100 08/08/24 07:30 97.3 87 13 120/74 (89) 100 08/08/24 07:15 88 12 126/75 (92) 100 LABS: Hematology Labs: Test 08/08/24 05:56 Range/Units White Blood Count 30.7 *H 4.8-10.8 K/uL Red Blood Count 2.33 L 4.00-5.50 MIL/uL Hemoglobin 7.3 L 12.0-16.0 g/dL Hematocrit 21.5 L 36-48 % Mean Corpuscular Volume 92.3 79-99 fL Mean Corpuscular Hemoglobin 31.3 27.0-33.0 pg Mean Corpuscular Hemoglobin Concent 34.0 32.0-36.0 g/dL Red Cell Distribution Width 17.6 H 11.0-15.5 % Platelet Count 815 #*H 130-400 K/uL Mean Platelet Volume 9.9 7.5-10.5 fL Immature Granulocyte % (Auto) 2.6 H 0-1 % Neutrophils (%) (Auto) 92.4 H 40.0-77.0 % Lymphocytes (%) (Auto) 2.2 L 21.0-51.0 % Monocytes (%) (Auto) 2.6 L 3.0-13.0 % Eosinophils (%) (Auto) 0.0 0.0-8.0 % Basophils (%) (Auto) 0.2 0.0-5.0 % Neutrophils # (Auto) 28.4 H 1.8-7.7 K/uL Lymphocytes # (Auto) 0.7 L 1.0-4.8 K/uL Monocytes # (Auto) 0.8 0.1-1.0 K/uL Eosinophils # (Auto) 0.00 0.00-0.70 K/uL Basophils # (Auto) 0.06 0.00-0.20 K/uL Absolute Immature Granulocyte (auto 0.79 0-1 K/uL Segmented Neutrophils % 98 H 40-70 % Monocytes % (Manual) 2 2-9 % Nucleated Red Blood Cells 0.0 0.0-0.19 % Differential Comment MANUAL DIFFERENTIAL White Cell Morphology Comment Platelet Morphology Comment INCREASED Red Blood Cell Morphology See comments Chemistry Labs: Test 08/08/24 10:33 08/08/24 05:56 08/07/24 04:02 Range/Units Whole Blood Glucose 86 70-110 MG/DL Sodium Level 134 L 136-145 mmol/L Potassium Level 4.4 3.5-5.1 mmol/L Chloride Level 104 101-111 mmol/L Carbon Dioxide Level 23 21-32 mmol/L Blood Urea Nitrogen 26 H 7-18 mg/dL Creatinine 0.4 L 0.5-1.0 mg/dL Glomerular Filtration Rate Calc 108 >90 mL/min Random Glucose 93 70-105 mg/dL Total Calcium 8.1 L 8.5-10.1 mg/dL Magnesium Level 2.00 1.80-2.40 mg/dL Total Bilirubin 0.2 0.2-1.0 mg/dL Aspartate Amino Transf (AST/SGOT) 42 H 10-37 U/L Alanine Aminotransferase (ALT/SGPT) 10 L 12-78 U/L Alkaline Phosphatase 121 50-136 U/L B-Type Natriuretic Peptide 380 H 0-100 pg/mL Total Protein 5.1 L 6.0-8.3 g/dL Albumin 1.2 L 3.5-5.0 g/dL Lactic Acid Level 1.2 0.8-2.5 mmol/L Direct Bilirubin 0.1 0.0-0.3 mg/dL Ammonia < 10 L 11-32 umol/L Total Creatine Kinase 10 L 21-232 U/L Troponin I High Sensitivity 6.3 4-50 ng/L Procalcitonin 0.35 0.05-0.5 ng/mL Coagulation Labs: Test 08/07/24 04:02 08/06/24 15:58 Range/Units Prothrombin Time 14.0 H 9.6-11.6 SEC Prothromb Time International Ratio 1.36 H 0.85-1.15 D-Dimer Quantitative (PE/DVT) 3630 *H 0-500 ng/mL DIAGNOSTICS / RADIOLOGY RESULTS: [ ] PLAN 08/08/2024: For now, going to continue current management for the patient. Going to continue antibiotic therapy as ordered. We will follow the culture results and adjust antibiotic therapy with sensitivity report. Per the general surgeon, the patient can resume enteral feedings and no plan for surgical intervention at this time. The patient will remain on Solu-Cortef and monitor the blood pressure trend off Levophed. I believe the patient can be downgraded to PCCU. I discussed the findings and plan for further management with the patient. We will monitor the patient's progress and response to management. We will continue to provide general supportive care, GI and DVT prophylaxis. Further orders per attending MD and hospital course. NEURO: Minimize central acting medications as possible. Maintain fall precautions, adequate lighting during the day PULMONARY: Supplemental 02 as needed. Maintain aspiration precautions at all times CARDIOVASCULAR: Follow hemodynamics. Vital signs per facility protocol GI & NUTRITION: Continue with nutritional support. Continue stool softeners and laxatives as needed. KIDNEYS & ELECTROLYTES: Strict monitoring of intake, output and overall fluid balance. Avoid nephrotoxic medications to the extent possible. Medications to be dosed according to renal function. Monitor electrolytes and replace as needed ENDOCRINE: Maintain blood glucose between 100-180 at all times. Hypoglycemia protocol in place INFECTIOUS DISEASE: Trend temperature, WBC and procalcitonin level Follow cultures, deescalate antibiotics as soon as possible. Panculture if new onset fever ONCOLOGY/HEMATOLOGY/COAGULATION: Monitor for s/s of bleeding Monitor hemoglobin, coagulation studies as needed SKIN: Pressure ulcer prevention per facility protocol Specialty mattress ORTHO/REHAB: Continue PT/OT Prophylaxis: Continue GI and DVT prophylaxis Code Status: Full Resuscitation Disposition: TBD Other: Patient was seen and case was discussed with masha LOGAN. Plan of care was discussed and agreed upon. VALDEMAR PATEL NP August 08, 2024 15:12
--- NOTE | 2024-08-08 18:29 | NUR ---
17 abdominal franco were removed as per ordered by Dr. Dunne. No complications. Patient tolerated well.
--- NOTE | 2024-08-08 18:31 | NUR ---
Report given to KAY Chacon. All questions answered
[2024-08-08] MEDS: acetaMINOPHEN 325 MG TAB PO PRN (21:32)
[2024-08-08] MEDS: DiphenhydrAMINE HCL 50 MG/ML VIAL IV PRN (21:39)
--- NOTE | 2024-08-08 22:30 | NUR ---
Was notified that during blood pressure check, pt ruptured and bled from right forearm. Wound is 2.5cmx0.1cm with sides well approximated. Placed bandages over wound and wrapped with elastic brown bandage.
[2024-08-09] VITALS (11 sets, daily range): BP systolic 112–137; BP diastolic 65–87; PULSE 79–102; RESP 16–18; TEMP 97.2–97.9; O2SAT 98–100
[2024-08-09 04:51] LABS: BASOPHILS # (AUTO) 0.05 K/uL (0.00-0.20); BASOPHILS % (AUTO) 0.2 % (0.0-5.0); HEMATOCRIT 23.3 % (36-48); IMMATURE GRANULOCYTE ABSOLUTE 0.95 K/uL (0-1); LYMPHOCYTES # (AUTO) 0.6 K/uL (1.0-4.8); LYMPHOCYTES % (AUTO) 2.1 % (21.0-51.0); MEAN CORPUSCULAR HEMOGLOBIN 30.8 pg (27.0-33.0); MEAN CORPUSCULAR HGB CONC 32.6 g/dL (32.0-36.0); MEAN CORPUSCULAR VOLUME 94.3 fL (79-99); MONOCYTES # (AUTO) 0.7 K/uL (0.1-1.0); MONOCYTES % (AUTO) 2.5 % (3.0-13.0); NEUTROPHILS % (AUTO) 91.7 % (40.0-77.0); NUCLEATED RED BLOOD CELLS 0.2 % (0.0-0.19); RED BLOOD CELL COUNT(AUTO) 2.47 MIL/uL (4.00-5.50); RED CELL DISTRIBUTION WIDTH 17.6 % (11.0-15.5); WHITE BLOOD COUNT (AUTO) 27.2 K/uL (4.8-10.8)
[2024-08-09 05:08] LABS: PLATELET COUNT (AUTO) 872 K/uL (130-400)
[2024-08-09 05:11] LABS: CREATININE 0.4 mg/dL (0.5-1.0); POTASSIUM 4.1 mmol/L (3.5-5.1)
--- NOTE | 2024-08-09 09:29 | PN ---
[facility] PROGRESS NOTE Date of Service: August 09, 2024 Time of Service: 09:27 SUBJECTIVE: [ 08/06/24 [Patient is 69 years old female with a past medical history of chronic anemia, GERD, hyperlipidemia, dementia, esophageal structure/stenosis, dysphagia s/p PEG tube placement. Crohn's disease, IBS, depression, hypertension, hypothyroidism, hyperlipidemia, GERD, chronic constipation, takotsubo cardiomyopathy, brain injury, gastric bypass 1991, neck surgery x2, bilateral knee surgery, carpal tunnel release, EGD with stent placement, who came to emergency department via EMS from [facility] for respiratory distress and abdominal pain. Per EMS patient was placed on oxygen and was having problems breathing. Patient is limited on verbalization. Patient was recently hospitalized to [facility] for GI bleed secondary to intestinal puncture. On 07/24/2024 exploratory lap was performed were replacement of G-tube was done with repair of bowel perforation by Dr Mccabe. Most recent 2D echo 07/10/2024 showed 60 to 65% stage I diastolic dysfunction. Most recent vital signs temperature 97.9 pulse 121 respiration 19 blood pressure 93/60 . Patient was placed on Levophed. Patient is satting 95% on 4 L nasal cannula. WBC 30.3 hemoglobin 8.2 hematocrit 24 platelets 820 UA positive for leukocytosis. Sodium 132 potassium 5.0 chloride 100 carbon dioxide 29 BUN 19 creatinine 0.9 GFR 108 lactic 1.9 calcium 8.1 CK 12 troponin 9 , BNP 951 procalcitonin negative. Chest x-ray showed bilateral pulmonary infiltrates suggestive of pulmonary vascular congestion, possible superimposed pneumonitis. CT abdomen/pelvis as per radiologist showed marked spleen and ischemic bowel. Surgeon Dr. Armendariz was notified regarding above finding and was consulted. Family members/ at the bedside was notified regards admission in the further plan. Patient will be admitted under hospitalist care for further evaluation/recommendation. Patient will be sent to ICU 08/07/24 patient was seen by nurse practitioner and physician during rounding in room 210. Patient continues to be on Levophed map 90. Patient was seen by surgeon and per her recommendation ascites, ileus, pleural effusion, and a splenic infarct of unknown etiology on Eliquis. No surgical intervention at this moment is recommended. In the meantime placed G-tube was straight drainage NPO for now strict I and loss. Etiology of infarction is unclear. Patient was also evaluated by the tool crib manager no new recommendation at this moment. Continue current regimen of medications. Patient will receive pneumococcal vaccine, Hib, meningococcal vaccine as well. at the bedside was informed regards to further plan and recommendations. Patient will also receive 2 g of magnesium. One dose of furosemide IV push will be given to two bilateral lower extremities edema and bilateral upper extremities edema plus four. We will hold fluids for now. WBC 30.3. We will consult ID for antibiotic recommendations. 08/09 patient is seen and examined at bedside, case discussed with the RN, no acute events overnight, patient downgraded to the PCU. During my visit the patient is awake, following commands, on supplemental oxygen via nasal cannula 2 L, saturating 98%, hemodynamically stable, she is getting broad-spectrum IV antibiotics. is at bedside. Updated. Patient continues to be on Levophed map 90. Patient was seen by surgeon and per her recommendation ascites, ileus, pleural effusion, and a splenic infarct of unknown etiology on Eliquis. No surgical intervention at this moment is recommended. Etiology of infarction is unclear. Patient was also evaluated by the tool crib manager no new recommendation at this moment. Patient noted to have thrombocytosis, hematuria consultation requested. Patient denies nausea, no vomiting, no abdominal discomfort, she feels hungry, we will resume diet and advanced slowly. We will continue to monitor. ID consultation requested as well, we will follow input and recommendation. REVIEW OF SYSTEMS CONSTITUTIONAL: Denies fevers, chills, or night sweats. No unintentional weight loss reported. NEUROLOGICAL: Denies headache, amaurosis fugax, motor weakness, sensory deficit, vertigo/spinning sensation, gait abnormalities, or tremors. ENT: No hearing loss, otalgia, otorrhea, rhinitis, rhinorrhea, hoarseness, or sore throat. CARDIOVASCULAR: Denies any exertional angina, dyspnea on exertion, orthopnea, paroxysmal nocturnal dyspnea, palpitations, life-threatening arrhythmias, claudication. PULMONARY: Denies any , cough, phlegm/sputum, hemoptysis, pleuritic chest pain. Patient denies any shortness of breaths SLEEP: Denies morning headaches, daytime somnolence or napping. Denies difficulty falling asleep, staying asleep, waking from sleep. Denies knowledge of snoring. GASTROINTESTINAL: Denies any type of dysphagia to either liquids or solids. Denies nausea, vomiting, pyrosis, early satiety, diarrhea, constipation, or changes in stool consistency or caliber. Denies coffee-ground emesis, h ematemesis, hematochezia, or melanotic stools. Patient complaining of abdominal pain GENITOURINARY: Denies frequency, urgency, nocturia, hematuria or incontinence (Storage/Irritative symptoms.) Low urinary stream, straining to void, urinary intermittency or hesitancy, splitting of the voiding stream, terminal dribbling. ENDOCRINOLOGIC: Denies polyuria, polydipsia, polyphagia or heat/cold intolerances. HEMATOLOGIC: Denies thrombophilia/previous clots, or coagulopathy/bleeding disorders. ONCOLOGIC: Denies personal history of malignancy. DERMATOLOGIC: Denies rashes or pruritus. PSYCHIATRIC: Denies any suicidal or homicidal ideation. Denies hallucinations. PHYSICAL EXAM GENERAL APPEARANCE: The patient is awake, alert, and disoriented in no acute cardiopulmonary distress. NEUROLOGICAL: Patient bed-bound. Patient contracted HEENT: Face is symmetric. Pupils are equal and reactive. Extraocular movements are intact. NECK: Supple. No JVD. No thyromegaly. No submental, submandibular, pre- /postauricular, occipital or supraclavicular lymphadenopathy. CHEST: Normal chest expansion. No Telemetry. LUNGS: Absence of any rales, rhonchi or any wheezing. CARDIOVASCULAR: Regular. S1 and S2 normal. No appreciable rubs, murmurs or gallops. ABDOMEN: Soft, , and nondistended. There is no rebound, voluntary guarding, or rigidity. Tender abdomen : Deferred. No Manuel. EXTREMITIES: Non-edematous and not cyanotic. No clubbing. Good capillary refi ll. SKIN: Multiple skin tears and bilateral lower extremities wounds Vital Signs (last 8hr) Date Time Temp Pulse Resp B/P (MAP) Pulse Ox O2 Delivery O2 Flow Rate FiO2 08/09/24 07:00 97.9 79 16 117/73 96 Nasal Cannula 2.0 08/09/24 07:00 100 Nasal Cannula* 2 28 08/09/24 06:43 94 18 N/Cannula Low lpm 2.0 28 08/09/24 06:40 94 16 08/09/24 03:00 97.2 93 16 137/87 100 Nasal Cannula 2.0 LABS: Laboratory: Test 08/09/24 05:31 08/09/24 04:00 08/08/24 05:56 Range/Units Whole Blood Glucose 72 70-110 MG/DL White Blood Count 27.2 H 4.8-10.8 K/uL Red Blood Count 2.47 L 4.00-5.50 MIL/uL Hemoglobin 7.6 L 12.0-16.0 g/dL Hematocrit 23.3 L 36-48 % Mean Corpuscular Volume 94.3 79-99 fL Mean Corpuscular Hemoglobin 30.8 27.0-33.0 pg Mean Corpuscular Hemoglobin Concent 32.6 32.0-36.0 g/dL Red Cell Distribution Width 17.6 H 11.0-15.5 % Platelet Count 872 *H 130-400 K/uL Mean Platelet Volume 9.9 7.5-10.5 fL Immature Granulocyte % (Auto) 3.5 H 0-1 % Neutrophils (%) (Auto) 91.7 H 40.0-77.0 % Lymphocytes (%) (Auto) 2.1 L 21.0-51.0 % Monocytes (%) (Auto) 2.5 L 3.0-13.0 % Eosinophils (%) (Auto) 0.0 0.0-8.0 % Basophils (%) (Auto) 0.2 0.0-5.0 % Neutrophils # (Auto) 25.0 H 1.8-7.7 K/uL Lymphocytes # (Auto) 0.6 L 1.0-4.8 K/uL Monocytes # (Auto) 0.7 0.1-1.0 K/uL Eosinophils # (Auto) 0.00 0.00-0.70 K/uL Basophils # (Auto) 0.05 0.00-0.20 K/uL Absolute Immature Granulocyte (auto 0.95 0-1 K/uL Nucleated Red Blood Cells 0.2 H 0.0-0.19 % Sodium Level 135 L 136-145 mmol/L Potassium Level 4.1 3.5-5.1 mmol/L Chloride Level 105 101-111 mmol/L Carbon Dioxide Level 21 21-32 mmol/L Blood Urea Nitrogen 29 H 7-18 mg/dL Creatinine 0.4 L 0.5-1.0 mg/dL Glomerular Filtration Rate Calc 108 >90 mL/min Random Glucose 80 70-105 mg/dL Total Calcium 8.0 L 8.5-10.1 mg/dL Segmented Neutrophils % 98 H 40-70 % Monocytes % (Manual) 2 2-9 % Differential Comment MANUAL DIFFERENTIAL White Cell Morphology Comment Platelet Morphology Comment INCREASED Red Blood Cell Morphology See comments Magnesium Level 2.00 1.80-2.40 mg/dL Total Bilirubin 0.2 0.2-1.0 mg/dL Aspartate Amino Transf (AST/SGOT) 42 H 10-37 U/L Alanine Aminotransferase (ALT/SGPT) 10 L 12-78 U/L Alkaline Phosphatase 121 50-136 U/L B-Type Natriuretic Peptide 380 H 0-100 pg/mL Total Protein 5.1 L 6.0-8.3 g/dL Albumin 1.2 L 3.5-5.0 g/dL Vancomycin Level Trough 15.7 10.0-20.0 UG/ML Current Medications Medications (Trade) Dose Ordered Sig/Jennifer Route PRN Reason Start Time Stop Time Status Last Admin Dose Admin Acetaminophen (TYLenol 325MG TAB) 650 mg Q4H PRN PO MILD PAIN (1-3) 08/06/24 15:30 09/05/24 15:29 08/08/24 21:32 650 MG Acetaminophen (TYLenol 325MG TAB) 650 mg Q6H PRN PO MILD PAIN (1-3) 08/06/24 15:30 08/06/24 15:27 DC Acetaminophen (TYLenol 325MG TAB) 650 mg Q6H PRN PO TEMPERATURE GREATER THAN 101.5 08/06/24 15:30 09/05/24 15:29 Al Hydroxide/Mg Hydroxide (MAALox PLUS 30ML) 30 ml Q6H PRN PO INDIGESTION 08/06/24 15:30 09/05/24 15:29 Albuterol Sulfate (Proventil 0.083% 2.5mg/3ml) 2.5 mg [id number] PRN IH RESPIRATORY SYMPTOMS 08/06/24 15:30 09/05/24 15:29 Cefepime HCl (MAXipime 1 GM vial) 1 gm Q8H IVPB 08/06/24 20:00 08/16/24 19:59 08/09/24 04:26 1 GM Ceftriaxone Sodium 2 gm/ Sodium Chloride 100 ml @ 200 mls/hr Q24H IV 08/06/24 15:30 08/06/24 15:27 DC Ceftriaxone Sodium (Rocephin 2gm Inj) 2 gm Q24H IVPB 08/06/24 16:00 08/06/24 15:37 DC Ceftriaxone Sodium (Rocephin 2gm Inj) 2 gm Q24H IVPB 08/07/24 16:00 08/06/24 17:54 DC Dextrose (D50w) 50 ml AD PRN IV HYPOGLYCEMIA PROTOCOL 08/06/24 15:30 09/05/24 15:29 Diphenhydramine HCl (BENAdryl INJ) 25 mg Q6H PRN IV SEVERE ITCHING/RASH 08/06/24 15:30 09/05/24 15:29 08/08/24 21:39 25 MG Famotidine (Pepcid 20mg Vial) 20 mg BID PRN IV NAUSEA/VOMITING 08/06/24 15:30 08/06/24 15:26 DC Famotidine (Pepcid 20mg Vial) 20 mg Q24H IV 08/06/24 21:00 09/05/24 20:59 08/08/24 21:32 20 MG Glucagon (Glucagon 1mg Kit) 1 mg AD PRN IM HYPOGLYCEMIA PROTOCOL 08/06/24 15:30 09/05/24 15:29 Guaifenesin/ Dextromethorphan (RobiTUSSin DM 200/20MG 10ML) 10 ml Q4H PRN PO COUGH 08/06/24 15:30 09/05/24 15:29 Heparin Sodium (Porcine) (HEParin 5,000 UNIT VIAL) 5,000 unit BID SQ 08/06/24 21:00 09/05/24 20:59 08/08/24 21:25 5,000 UNIT Hydralazine HCl (APRESOLine 20MG INJ) 10 mg Q6H PRN IV For:SBP above 160;DBP above 90 08/06/24 15:30 09/05/24 15:29 Hydrocortisone Sodium Succinate (Solu-corTEF 100MG) 50 mg Q6H6 IV 08/06/24 18:00 09/05/24 17:59 08/09/24 06:34 50 MG Insulin Human Regular (humuLIN R 100 UNIT/ML 3ML) INSULIN SLIDING SCAL... ACHS SQ 08/06/24 16:30 09/05/24 16:29 Ipratropium [place] (AtrovENT UD) 0.5 mg [id number] IH 08/06/24 18:00 09/05/24 17:59 08/09/24 06:40 0.5 MG Ketorolac Tromethamine (toRADol) 15 mg Q8H PRN IV MODERATE PAIN (4-6) 08/06/24 15:30 08/06/24 15:34 DC Lactulose (Constulose 20gm/ 30ml Udcup) 20 gm BID PRN PO CONSTIPATION 08/06/24 15:30 09/05/24 15:29 Leptospermum Honey (Medihoney) 1 appl DAILY TP 08/08/24 11:30 09/07/24 11:29 08/08/24 11:42 1 APPL Magnesium Sulfate 50 ml @ 0 mls/hr PROTOCOL PRN IV other 08/06/24 15:30 09/05/24 15:29 08/07/24 05:21 0 MLS/HR Magnesium Sulfate (Magnesium 4gm Premix 100ml) 4 gm AD IV 08/07/24 07:00 08/08/24 12:51 DC Meningococcal Polysaccharide Vacc (Brendanveo N-G-C-w-135-Dip Vial) 1 each ONCE IM 08/07/24 09:30 08/07/24 09:16 DC Metronidazole/ Sodium Chloride (flaGYL) 500 mg Q8H IV 08/06/24 18:00 08/16/24 17:59 08/09/24 02:32 500 MG Morphine Sulfate (morPHINE 2MG SYG) 1 mg Q4H PRN IVP SEVERE PAIN (7-10) 08/06/24 15:30 08/13/24 15:29 08/08/24 18:04 1 MG Nitroglycerin (Nitrostat) 0.4 mg PROTOCOL PRN SL CHEST PAIN 08/06/24 15:30 09/05/24 15:29 Norepinephrine 250 ml @ 0 mls/hr PROTOCOL IV 08/06/24 15:30 09/05/24 15:29 08/07/24 03:23 14 MLS/HR Ondansetron HCl (zoFRAN 4MG INJ) 4 mg Q6H PRN IV NAUSEA/VOMITING 08/06/24 15:30 09/05/24 15:29 Oxycodone/ Acetaminophen (perCOCET) 1 tab Q6H PRN PO SEVERE PAIN (7-10) 08/06/24 15:30 08/06/24 15:27 DC Pharmacy Profile Note (Lace Assessment) 1 each AD MISC 08/07/24 13:30 08/08/24 12:51 DC Piperacillin Sod/ Tazobactam Sod (Zosyn 3.375gm+NS 50ml) 3.375 gm Q12H IV 08/06/24 12:30 08/06/24 15:14 DC 08/06/24 13:05 3.375 GM Potassium Chloride 100 ml @ 100 mls/hr AD PRN IV POTASSIUM PROTOCOL 08/06/24 15:30 09/05/24 15:29 Potassium Chloride (K-Dur 10meq Sr Tab) 10 meq AD PRN PO POTASSIUM PROTOCOL 08/06/24 15:30 09/05/24 15:29 Potassium Chloride (KCl 10% Elixir 20meq/15ml) 10 meq AD PRN PO POTASSIUM PROTOCOL 08/06/24 15:30 09/05/24 15:29 Sodium Chloride 1,000 ml @ 100 mls/hr Q10H IV 08/06/24 15:30 08/07/24 14:05 DC 08/06/24 15:35 100 MLS/HR Vancomycin HCl (Vancomycin 750mg) 750 mg Q12H IVPB 08/07/24 06:00 08/17/24 05:59 08/09/24 06:36 750 MG Vancomycin HCl (Vancomycin Protocol) 1 each PROTOCOL PRN IV VANCOMYCIN PROTOCOL 08/06/24 15:30 08/20/24 15:29 Zolpidem Tartrate (AmbIEN) 5 mg HS PRN PO INSOMNIA 08/06/24 15:30 09/05/24 15:29 DIAGNOSTICS / RADIOLOGY: [ ] ASSESSMENT: [ Acute sepsis secondary to ischemic bowel, UTI POA Acute hypoxic respiratory failure POA Infarcted spleen per CT abdomen/pelvis POA Ischemic bowel per CT abdomen/pelvis POA Hypotension requiring Levophed drip POA Acute complicated cystitis POA Acute on chronic diastolic congestive heart failure 2D echo 60 to 65 % stage I dysfunction 07/10/2024 Esophageal structure/stenosis 07/24/2024 exploratory lap repair of G-tube repair of perforation Crohn's disease POA IBS POA Thrombocytopenia POA Depression POA Hypertension POA Hypothyroidism POA Chronic constipation POA Takotsubo cardiomyopathy POA Debility and frailty POA Chronic anemia POA GERD, POA Hyperlipidemia POA Multiple skin tears on arms with bilateral lower extremities wounds POA Dementia POA History of Recent GI bleedon previous admission due secondary to intestinal puncture History of brain injury History of EGD with stent placement 07/14/2024 History of carpal tunnel release History of neck surgery x2 History of bilateral knee surgery History of EGD with stent placement 07/14/2024] PLAN: [Admit to: PCU Consults: ICU, surgeon, ID, tool crib manager Antibiotics: Rocephin, vancomycin Drips off Levophed Fluids normal saline at 100 mL/hours NEURO: Minimize central acting medications as possible. Fall Precautions. Well lighted room through the day and minimize interruptions through the night to prevent acute delirium. PULMONARY: Chest x-ray showed bilateral pulmonary infiltrate suggestive of pulmonary vascular congestion, possible superimposed pneumonitis Supplemental 02 as needed BiPAP as necessary, for respiratory distress Titrate Fio2 to keep Spo2 > or = 90% DuoNebs and CPT as needed IS hourly while awake for pulmonary hygiene Out of bed to chair as tolerated VAP Bundle Maintain aspiration precautions at all times CARDIOVASCULAR: As per tool crib manager no further workup needed at this moment Follow hemodynamics. Vital signs per facility protocol GI & NUTRITION: Occult pending CT abdomen/pelvis showed infarct spleen, ischemic bowel use Continue nutritional support Aspirations precautions Prokinetic agents and laxatives as needed KIDNEYS & ELECTROLYTES: Strict monitoring of intake and output Daily weights Avoid nephrotoxic agents Monitor electrolytes and replace as needed Goal urine output of 30mL/hr or 0.5mL/kg/hr Medications to be dosed according to renal function. Avoid contrast if possible ENDOCRINE: Maintain blood glucose between 100-180 at all times. Insulin sliding scale for blood glucose management Hypoglycemia and hyperglycemia protocol in place INFECTIOUS DISEASE: Infectious disease doctor consulted Blood culture pending Urine culture pending Trend temperature, WBC and procalcitonin level Follow cultures, deescalate antibiotics as soon as possible. Panculture if new onset fever HEMATOLOGY & COAGULATION: Monitor H&H. Keep Hgb > 7 Transfuse 1 unit of PRBC for Hgb < 7 Transfuse 1 pack of platelets of platelets < 20, 000 Watch for any signs and symptoms of bleeding SKIN: Pressure ulcer prevention per facility protocol Specialty mattress as needed As per surgeon no further workup needed at this moment Treatment plan discussed with patient and family at the bedside Medications to be reconciled once obtained by patient and/or family and available to be reconciled in computer p.r.n. medication for pain nausea and vomiting Questions were answered We will continue to monitor the patient closely Corporate General Manager for disposition Rehab: PT/OT GI: PPI DVT: SCD's Code Status: Full Resuscitation Disposition: TBD Prognosis: Guarded ] LELE GALEANO MD August 09, 2024 09:29
[2024-08-09] MEDS: DEXTROSE 50%-WATER 50 ML DISP.SYRIN IV PRN (12:05)
--- NOTE | 2024-08-09 13:23 | CONS ---
MANUELA ROONEY MD 08/09/24 1323: HISTORY HPI: The patient is a 69-year-old female with a complex medical history including: chronic anemia, dementia, esophageal stricture with PEG tube, Crohns disease, IBS, depression, generalized anxiety disorder, hypertension, hypothyroidism, hyperlipidemia, chronic constipation, Takotsubo cardiomyopathy, bilateral pulmonary embolism and DVTs with IVC filter placement, GERD, history of GI bleed requiring exploratory laparotomy and bowel repair with PEG tube replacement (July 24, 2024), and multiple prior surgeries (gastric bypass, bilateral knees, neck, EGD with stenting on July 14, 2024). She presented on August 06, 2024, from a long-term with respiratory distress and abdominal pain. EMS reported difficulty breathing and oxygen support requirement. She was found to be hypotensive and hypoxic, requiring ICU admission, broad-spectrum antibiotics, and fluid resuscitation. Workup revealed sepsis likely secondary to ischemic bowel and a UTI, thrombocytosis, severe anemia, pulmonary congestion, and splenic infarction. She has since improved on 2L nasal cannula, is hemodynamically stable, and remains NPO with PEG to straight drain. PMH: Esophageal structure/stenosis, dysphagia s/p PEG tube placement, Crohn's disease, IBS, depression, hypertension, hypothyroidism, hyperlipidemia, GERD, ch ronic constipation, takotsubo cardiomyopathy, brain injury, debility, dementia, chronic anemia, GERD, multiple skin tears bilateral lower extremity wounds , 2D echo 07/11/2559 to 65% stage I diastolic dysfunction] PSH: 07/24/2024 exploratory lap replacement of G-tube with repair of perforation, C- section x2, gastric bypass 1991, neck surgery x2, carpal tunnel release, bilateral knee surgery, EGD with stent placement 07/14/2024 SH: Patient denies smoking. Patient denies drug use. Patient denies alcohol illicit FH: Patient was admitted from [facility]. Patient bed-bound ALLERGIES: Coded Allergies: No Known Allergies (Unverified Allergy, Unknown, 05/18/24) CURRENT MEDS: Current Medications Medications (Trade) Dose Ordered Sig/Jennifer Route Start Time Stop Time Status Last Admin Dose Admin Cefepime HCl (MAXipime 1 GM vial) 1 gm Q8H IVPB 08/06/24 20:00 08/16/24 19:59 08/09/24 12:05 Ceftriaxone Sodium 2 gm/ Sodium Chloride 100 ml @ 200 mls/hr Q24H IV 08/06/24 15:30 08/06/24 15:27 DC Ceftriaxone Sodium (Rocephin 2gm Inj) 2 gm Q24H IVPB 08/06/24 16:00 08/06/24 15:37 DC Ceftriaxone Sodium (Rocephin 2gm Inj) 2 gm Q24H IVPB 08/07/24 16:00 08/06/24 17:54 DC Famotidine (Pepcid 20mg Vial) 20 mg Q24H IV 08/06/24 21:00 09/05/24 20:59 08/08/24 21:32 Heparin Sodium (Porcine) (HEParin 5,000 UNIT VIAL) 5,000 unit BID SQ 08/06/24 21:00 09/05/24 20:59 08/09/24 11:09 Hydrocortisone Sodium Succinate (Solu-corTEF 100MG) 50 mg Q6H6 IV 08/06/24 18:00 09/05/24 17:59 08/09/24 12:05 Insulin Human Regular (humuLIN R 100 UNIT/ML 3ML) INSULIN SLIDING SCAL... ACHS SQ 08/06/24 16:30 09/05/24 16:29 Ipratropium [place] (AtrovENT UD) 0.5 mg [id number] IH 08/06/24 18:00 09/05/24 17:59 08/09/24 11:18 Leptospermum Honey (Medihoney) 1 appl DAILY TP 08/08/24 11:30 09/07/24 11:29 08/09/24 09:00 Magnesium Sulfate (Magnesium 4gm Premix 100ml) 4 gm AD IV 08/07/24 07:00 08/08/24 12:51 DC Meningococcal Polysaccharide Vacc (Menveo W-A-S-w-135-Dip Vial) 1 each ONCE IM 08/07/24 09:30 08/07/24 09:16 DC Metronidazole/ Sodium Chloride (flaGYL) 500 mg Q8H IV 08/06/24 18:00 08/16/24 17:59 08/09/24 11:02 Norepinephrine 250 ml @ 0 mls/hr PROTOCOL IV 08/06/24 15:30 09/05/24 15:29 08/07/24 03:23 Pharmacy Profile Note (Lace Assessment) 1 each AD MISC 08/07/24 13:30 08/08/24 12:51 DC Piperacillin Sod/ Tazobactam Sod (Zosyn 3.375gm+NS 50ml) 3.375 gm Q12H IV 08/06/24 12:30 08/06/24 15:14 DC 08/06/24 13:05 Sodium Chloride 1,000 ml @ 100 mls/hr Q10H IV 08/06/24 15:30 08/07/24 14:05 DC 08/06/24 15:35 Vancomycin HCl (Vancomycin 750mg) 750 mg Q12H IVPB 08/07/24 06:00 08/17/24 05:59 08/09/24 06:36 REVIEW OF SYSTEMS CONSTITUTIONAL: No FEVER, No SWEATS, No CHILLS, No WEIGHT LOSS HEENT: No JAUNDICE, No SORE THROAT, No SINUS PRESSURE, No VISION CHANGES RESPIRATORY: No COUGH, No CHEST PAIN; SHORTNESS OF BREATH (Patient complain of shortness of breaths); No HEMOPTYSIS CARDIOVASCULAR: No PALPATIONS, No DYSPNEA ON EXERTION, No SYNCOPE GASTROINTESTINAL: No NAUSEA, No VOMITING, No DIARRHEA, No DYSPHAGIA, No CONSTIPATION; ABDOMINAL PAIN ( Patient complaining of abdominal pain); No HEMATEMESIS, No HEMATOCHEZIA, No MELENA GENITOURINARY: No DYSURIA, No HEMATURIA HEMATOLOGIC/LYMPHATIC: No EASY BRUISING, No CERVICAL ADENOPATHY, No AXILLARY ADENOPATHY, No INGUINAL ADENOPATHY MUSCULOSKELETAL: No BONE PAIN, No MASS, No NORMAL RANGE OF MOTION SKIN/BREASTS: No BREAST MASS, No NIPPLE INVERSION, No RASH NEUROLOGICAL: No WEAKNESS-EXTREMETIES, No DIPLOPIA, No NUMBNESS, No TINGLING PSYCHOLOGICAL: No SUICIDAL IDEATION PHYSICAL EXAM VITALS: Vital Signs Date Time Temp Pulse Resp B/P (MAP) Pulse Ox O2 Delivery O2 Flow Rate FiO2 08/09/24 11:19 102 18 08/09/24 11:00 97.7 123/75 100 Nasal Cannula 2.0 08/09/24 07:00 28 GENERAL: ALERT, ORIENTED, APPEARS-NO ACUTE DISTRESS (Patient bed-bound. Patient contracted) EYES: No SCLERAE ANICTERIC, No PUPILS EQUAL/REACTIVE, No EXTRAOCULAR MUSCLES INTCT ENT/NECK: No ORAL MUCOSA W/O LESIONS, No OROPHARYNX IS CLEAR, No NECK SUPPLE W/O MASSES RESPIRATORY: LUNGS CLEAR-AUSC/PERCUS CARDIOVASCULAR: REGULAR RATE, REGULAR RHYTHM GASTROINTESTINAL: ABDOMEN IS SOFT, TENDER (Tender abdomen); No DISTENDED, No HEPATOSPLENOMEGALY, No BOWEL SOUNDS PRESENT, No PALPABLE MASSES HEMATOLOGY/LYMPHATIC: No CERVICAL ADENOPATHY, No SUPRACLAVICULR ADENOPATHY, No AXILLARY ADENOPATHY, No INGUINAL ADENOPATHY MUSCULOSKELETAL: No CYANOSIS-EXTREMETIES, No CLUBBING, No EDEMA SKIN/BREASTS: No MASSES, No RASH (Multiple skin tears and bilateral lower extremities wounds), No HIVES NEUROLOGICAL: GROSSLY INTACT (Patient bed-bound. Patient contracted) PSYCHOLOGICAL: No MINI MENTAL ASSMT INTACT DIAGNOSTIC STUDIES Vital Signs Date Time Temp Pulse Resp B/P (MAP) Pulse Ox O2 Delivery O2 Flow Rate FiO2 08/09/24 11:19 102 18 08/09/24 11:00 97.7 123/75 100 Nasal Cannula 2.0 08/09/24 07:00 28 Laboratory Result(s) Test 08/08/24 15:50 08/08/24 19:16 08/09/24 04:00 08/09/24 05:31 Whole Blood Glucose 74 MG/DL (70-110) 73 MG/DL (70-110) 72 MG/DL (70-110) White Blood Count 27.2 K/uL (4.8-10.8) Red Blood Count 2.47 MIL/uL (4.00-5.50) Hemoglobin 7.6 g/dL (12.0-16.0) Hematocrit 23.3 % (36-48) Mean Corpuscular Volume 94.3 fL (79-99) Mean Corpuscular Hemoglobin 30.8 pg (27.0-33.0) Mean Corpuscular Hemoglobin Concent 32.6 g/dL (32.0-36.0) Red Cell Distribution Width 17.6 % (11.0-15.5) Platelet Count 872 K/uL (130-400) Mean Platelet Volume 9.9 fL (7.5-10.5) Immature Granulocyte % (Auto) 3.5 % (0-1) Neutrophils (%) (Auto) 91.7 % (40.0-77.0) Lymphocytes (%) (Auto) 2.1 % (21.0-51.0) Monocytes (%) (Auto) 2.5 % (3.0-13.0) Eosinophils (%) (Auto) 0.0 % (0.0-8.0) Basophils (%) (Auto) 0.2 % (0.0-5.0) Neutrophils # (Auto) 25.0 K/uL (1.8-7.7) Lymphocytes # (Auto) 0.6 K/uL (1.0-4.8) Monocytes # (Auto) 0.7 K/uL (0.1-1.0) Eosinophils # (Auto) 0.00 K/uL (0.00-0.70) Basophils # (Auto) 0.05 K/uL (0.00-0.20) Absolute Immature Granulocyte (auto 0.95 K/uL (0-1) Nucleated Red Blood Cells 0.2 % (0.0-0.19) Sodium Level 135 mmol/L (136-145) Potassium Level 4.1 mmol/L (3.5-5.1) Chloride Level 105 mmol/L (101-111) Carbon Dioxide Level 21 mmol/L (21-32) Blood Urea Nitrogen 29 mg/dL (7-18) Creatinine 0.4 mg/dL (0.5-1.0) Glomerular Filtration Rate Calc 108 mL/min (>90) Random Glucose 80 mg/dL (70-105) Total Calcium 8.0 mg/dL (8.5-10.1) Test 08/09/24 11:33 08/09/24 13:03 Whole Blood Glucose 66 MG/DL (70-110) 98 MG/DL (70-110) IMPRESSION Sepsis, POA Likely secondary to ischemic bowel and fungal UTI Acute hypoxic respiratory failure, POA On 2L NC, stable Ischemic bowel & ileus, POA CT evidence, NPO, surgical follow-up Splenic infarct, POA Conservative management Thrombocytosis, POA Suspected reactive, rule out MPN Chronic anemia, POA Macrocytic, with iron/B12/folate deficiency under evaluation UTI with Rehana and Gram-positive cocci, POA Treated with tailored antimicrobials History of bilateral PE/DVT with IVC filter On heparin inpatient, plan for Eliquis at discharge CHF with diastolic dysfunction EF 5560%, fluid balance being monitored Crohns/IBS, POA Multiple chronic comorbidities as previously listed PLAN Thrombocytosis (platelets 872K): Likely reactive due to infection/inflammation. Anemia (Hgb 7.6, MCV 94.3): Likely multifactorial (nutritional vs chronic disease) * Start folic acid 1 mg PO daily * Start vitamin B12 1,000 mcg PO daily * Peripheral smear ordered * Ongoing evaluation for myelodysplasia or bone marrow disorder if no improvement * Monitor for need for transfusion (PRBC if Hgb < 7 or symptomatic) History of bilateral PE/DVT and IVC filter: * Continue Heparin 5,000 units SQ BID while inpatient for prophylaxis * At discharge, initiate Eliquis 2.5 mg PO BID for long-term anticoagulation * monitor for signs of VTE BEAR MATAMOROS MD 08/10/24 1220: PLAN I attest that I was physically present to evaluate the patient and I reviewed and discussed the case with the Resident and agree with the Resident's findings and plans of care as documented above with modifications. Case discussed with resident on the date stated at the beginning of note. Patient was first seen and evaluated by me during this hospitalization. MANUELA ROONEY MD August 09, 2024 13:23 BEAR MATAMOROS MD August 10, 2024 12:20
--- NOTE | 2024-08-09 13:42 | CONS ---
INFECTIOUS DISEASE CONSULTATION NOTE Date of Service: August 09, 2024 Reason for Consultation: Fungemia, Antibiotic management. Requesting Physician: Evangelina Dowell NP. HISTORY OF PRESENT ILLNESS: This is a 69-year-old female patient with past medical history of hyperlipidemia, dementia, esophageal stricture/stenosis, dysphagia with PEG tube placement, Crohn's disease, hypertension, hypothyroidism who was admitted from [facility] for chief complaints of respiratory distress and abdominal pain. A ches t x-ray showed bilateral pulmonary infiltrates. A CT of the abdomen and pelvis done on admission showed possible infarcted spleen, ischemic bowel. The WBC on admission was 30.3 but no fever. A urine culture collected on admission came back positive for Enterococcus faecalis and Rehana albicans. Patient has been started on vancomycin, cefepime and metronidazole. On examination today in room 205 patient is awake, alert and answered basic questions appropriately. The WBC is still high at 27.2 but no fever, temperature is 97.7. The preliminary blood cultures results is growing yeast species. We will start patient on micafungin 100 mg IV Q 24. Patient is tolerating tube feedings well and no episodes of emesis reported. Patient is very edematous. We will continue to follow patient's care. REVIEW OF SYSTEMS CONSTITUTIONAL: Denies fever, chills, or fatigue. HEAD/FACE: No signs of trauma. EENT: Denies eye pain, blurred vision, double vision, or light sensitivity. RESPIRATORY: Shortness of breath, and cough. CARDIOVASCULAR: Denies chest pain, palpitation, syncope GASTROINTESTINAL/ABDOMINAL: Abdominal pain, GENITOURINARY: Denies dysuria or hematuria. MUSCULOSKELETAL: Denies joint pain, tenderness, or trauma. INTEGUMENTARY: Denies rash or itchiness NEUROLOGICAL/PSYCH: Denies anxiety, depression, heat or cold intolerance. PAST MEDICAL HISTORY: Hypothyroidism. Hypertension. Crohn's disease. Irritable bowel syndrome. Esophageal stricture/stenosis. Dysphagia. Dementia. Hyperlipidemia. PAST SURGICAL HISTORY: Gastric bypass. Exploratory laparotomy with repair of PEG tube perforation. EGD with stent placement PAST SOCIAL HISTORY: Denied the use of alcohol, tobacco or any other illicit drug. FAMILY HISTORY: Noncontributory. Coded Allergies: No Known Allergies (Unverified Allergy, Unknown, 05/18/24) PHYSICAL EXAM EYES: Anicteric. Pupils equal and reactive. HENT: No oral thrush seen, moist Oral mucosa. NECK: Supple, no JVD or thyromegaly. LUNGS: Good air entry. No rales, no rhonchi. CARDIOVASCULAR: S1, S2 regular. No murmur heard. ABDOMEN: Soft, non tender, bowel sounds present, no organomegaly. Abdominal pain. Peg tube. CENTRAL NERVOUS SYSTEM: Awake, alert, oriented x2. SKIN: No rashes, no swelling. LYMPHATICS: No peripheral lymphadenopathy. MUSCULOSKELETAL: No joint swelling, erythema or tenderness. EXTREMITIES: No cyanosis or clubbing. Upper and Lower extremity edema. BACK: No deformity, no pressure ulcer. GENITOURINARY: No dysuria or hematuria. Incontinence. Vital Sign (Last 24 Hours) 08/09/24 08/09/24 08/09/24 07:00 11:00 11:19 Temp 97.7 Pulse 102 Resp 18 B/P (MAP) 123/75 Pulse Ox 100 O2 Delivery Nasal Cannula O2 Flow Rate 2.0 FiO2 28 Intake & Output (last 24hrs) 08/08/24 08/08/24 08/09/24 15:00 23:00 07:00 Intake Total 200.0 ml 400.0 ml 400.0 ml Output Total 225 ml Balance 200.0 ml 175.0 ml 400.0 ml LABS: Laboratory: Test 08/09/24 13:03 08/09/24 04:00 08/08/24 05:56 Range/Units Whole Blood Glucose 98 70-110 MG/DL White Blood Count 27.2 H 4.8-10.8 K/uL Red Blood Count 2.47 L 4.00-5.50 MIL/uL Hemoglobin 7.6 L 12.0-16.0 g/dL Hematocrit 23.3 L 36-48 % Mean Corpuscular Volume 94.3 79-99 fL Mean Corpuscular Hemoglobin 30.8 27.0-33.0 pg Mean Corpuscular Hemoglobin Concent 32.6 32.0-36.0 g/dL Red Cell Distribution Width 17.6 H 11.0-15.5 % Platelet Count 872 *H 130-400 K/uL Mean Platelet Volume 9.9 7.5-10.5 fL Immature Granulocyte % (Auto) 3.5 H 0-1 % Neutrophils (%) (Auto) 91.7 H 40.0-77.0 % Lymphocytes (%) (Auto) 2.1 L 21.0-51.0 % Monocytes (%) (Auto) 2.5 L 3.0-13.0 % Eosinophils (%) (Auto) 0.0 0.0-8.0 % Basophils (%) (Auto) 0.2 0.0-5.0 % Neutrophils # (Auto) 25.0 H 1.8-7.7 K/uL Lymphocytes # (Auto) 0.6 L 1.0-4.8 K/uL Monocytes # (Auto) 0.7 0.1-1.0 K/uL Eosinophils # (Auto) 0.00 0.00-0.70 K/uL Basophils # (Auto) 0.05 0.00-0.20 K/uL Absolute Immature Granulocyte (auto 0.95 0-1 K/uL Nucleated Red Blood Cells 0.2 H 0.0-0.19 % Sodium Level 135 L 136-145 mmol/L Potassium Level 4.1 3.5-5.1 mmol/L Chloride Level 105 101-111 mmol/L Carbon Dioxide Level 21 21-32 mmol/L Blood Urea Nitrogen 29 H 7-18 mg/dL Creatinine 0.4 L 0.5-1.0 mg/dL Glomerular Filtration Rate Calc 108 >90 mL/min Random Glucose 80 70-105 mg/dL Total Calcium 8.0 L 8.5-10.1 mg/dL Segmented Neutrophils % 98 H 40-70 % Monocytes % (Manual) 2 2-9 % Differential Comment MANUAL DIFFERENTIAL White Cell Morphology Comment Platelet Morphology Comment INCREASED Red Blood Cell Morphology See comments Magnesium Level 2.00 1.80-2.40 mg/dL Total Bilirubin 0.2 0.2-1.0 mg/dL Aspartate Amino Transf (AST/SGOT) 42 H 10-37 U/L Alanine Aminotransferase (ALT/SGPT) 10 L 12-78 U/L Alkaline Phosphatase 121 50-136 U/L B-Type Natriuretic Peptide 380 H 0-100 pg/mL Total Protein 5.1 L 6.0-8.3 g/dL Albumin 1.2 L 3.5-5.0 g/dL Vancomycin Level Trough 15.7 10.0-20.0 UG/ML DIAGNOSTICS / RADIOLOGY: PATIENT: EFRAIN BAKER I ACCT: [id number] LOC: 2AH U: [id number] AGE/SX: 69/F ROOM: [facility] RE08/06/[address]: ALIREZA BUNDY MD : 1955 BED: 1 DIS: STATUS: ADM IN TLOC: SPEC: [id number] RICHI: 08/06/24-1246 STATUS: COMP REQ: [id number] RECD: 08/07/[address]: JULIUS GOLDSTEIN MD SOURCE: URINE CATH ENTR: 08/07/[address]: GLORIA MAYA SPDESC: CATHERIZED ORDERED: AERO ID & SENS Procedure Result Sha Date-Time AEROBIC ID & SENSITIVITIES Final 08/09/24-811 MRL COLONY DESCRIPTION: DAY 1: COLONY COUNT: 10,000 - 20,000 CFU/ML YEAST, REHANA ALBICANS COLONY COUNT: 20,000 - 50,000 CFU/ML GRAM POSITIVE COCCI IN CHAINS POSSIBLE ENTEROCOCCUS SPECIES IDENTIFICATION AND SENSITIVITY TO FOLLOW ENTEROCOCCUS FAECALIS REHANA ALBICANS E FAECALIS M.I.C. RX --------- ---- AMPICILLIN <=2 S VANCOMYCIN 1 S NITROFURANTOIN <=32 S GENTAMICIN Synergy Screen >500 R PENICILLIN 2 S STREPTOMYCIN Synergy Screen <=1000 S ENTEROCOCCUS FAECALIS: POSITIVE COMBO 34 Streptomycin Synergy Screen S Gentamicin Synergy Screen R ASSESSMENT: Fungemia. Urinary tract infection with Enterococcus faecalis and Rehana albicans. Leukocytosis. Sepsis. Suspected Ischemic bowel. Anasarca. Dementia. Dysphagia with PEG tube placement. History esophageal stricture/stenosis with stent placement 07/14/2024 Chronic anemia. PLAN: Start Micanfungin 100 IV q 24hrs. Continue vancomycin per pharmacy protocol. Continue cefepime. Obtain 2D echo. Continue GI prophylaxis. We will follow up on the final cultures. We will monitor electrolytes. Thank you for allowing ID to participate in the care of this patient. This case was reviewed and discussed with my supervising physician and the above assessment and plan was formulated and agreed upon. ATTESTATION BY PHYSICIAN I have seen and examined the patient. I reviewed the documentation, medical decision making, and treatment plan as noted by the mid-level provider above. I agree with the findings and plan of care. LANA VICK MD, MIRTA L [facility] August 09, 2024 13:42
[2024-08-09] MEDS ORDERED: PHARMACY COMMUNICATION MISC SCH (14:00)
--- NOTE | 2024-08-09 15:57 | NUR ---
Nutritional Note: Pt currently using PEG for slow continuous feeds. Pt currently on Jevity 1.5 rate of 30m/hr with 100ml H2O q 4. Current rate provides 1080kcal 46gm pro/day Current rate is meeting 73% of estimated kcal needs and 65% of estimated pro needs. Recommend: -TF goal rate 40ml/hr with 150ml H20 flush q 4 or H20 flsh as per . (TF to provide 1440kcal 61gm pro with Prostat 91gm pjro and 1640kcal/day) -ProStat BID (30 ml) with 75ml H20 flush Which will aid in wound healing. Balance protein calorie intake to promote wound healing. This provides 3.3 mg L-arginine, 15 gm protein and 100 kcal per 30 ml -Zinc Sulfate 220mg BID, Vit C 500mg BID, and MVI -Nephrovite MVI combination of B vitamins may be used to treat or prevent vitamin deficiency due to poor diet. - Electrolyte replacements per protocol -Monitor feeding tolerance, wt, and labs -If No BM >3days consider bowel stimulant. - Notify RD if additional nutrition concerns arise. SEE RD Nutritional Assessment for additional assessment information. Addendum: 08/09/24 at [address] Amended: Links added.
[2024-08-09] MEDS: MICAFUNGIN 100MG+NS 100ML 100 ML IV SCH (16:01)
[2024-08-09] MEDS: FOLic ACID 1 MG TABLET PO SCH (16:01)
--- NOTE | 2024-08-09 16:05 | NUR ---
[facility] Consult: Patient assessed by wound healing team. See wound assessment. Assessment and recommendations provided to primary nurse. Education provided. Addendum: 08/10/24 at 1621 by ANA BENSON RN RN/ Amended: Links added.
--- NOTE | 2024-08-09 17:45 | PN ---
[facility] PROGRESS NOTE Date Patient Seen: August 09, 2024 Time of Visit: 17:45 Supervising Physician: Dr. Lara Primary Care Physician: Dr. John Hopson Outpatient Specialists: [ ] Inpatient Consults: [ ] PROBLEM LIST: Acute hypoxemic respiratory failure POA. Rehana parapsilosis bacteremia Enterococcus faecalis and Rehana albicans UTI Acute sepsis and shock from intra-abdominal source POA. Infarcted spleen noted on CT abdomen and pelvis, POA. Ischemic bowel noted on CT abdomen and pelvis, POA. Chronic anemia POA Hypothyroidism POA Hyperlipidemia POA Hypertension POA GERD POA Severe protein calorie malnutrition POA Cachexia POA Mulitple wounds POA Debility and frailty POA Depression POA Dementia POA. History Of esophageal stricture POA Recent suspected bowel perforation, ruled out s/p exploratory laparotomy with lysis of adhesions and placement of a gastrostomy tube 22 [place] on 07/24/2024 INTERVAL HISTORY: 08/07/2024: At the time of my evaluation, the patient is lying in bed. She is obtunded. The patient remains on nasal cannula we will optimal oxygen saturation. On the monitor, she is hemodynamically stable. Laboratory data today showed no significant change of WBC, today 30.3, H&H 7.2/21.3 and a platelet count of 655. Chemistry panel was notable for a magnesium of 1.30. No coagulopathy. Blood cultures x2 were negative urine sample was sent for culture and is pending report. No repeat imaging for today. Currently, the patient continues on antibiotic coverage with cefepime, metronidazole and vancomycin. The patient remains on Levophed drip with Solu-Cortef IV. No other complaint. 08/08/2024: At the time of my evaluation, the patient is lying in bed. She is more awake and verbally interactive today. She remains on nasal cannula for oxygen supplementation and is otherwise hemodynamically stable. The laboratory data today showed persisting elevated WBC count today 30.7, H&H 7.3/21.5 and a platelet count of 815. Chemistry panel was notable for a BNP level of 380, total protein of 5.1 and a albumin of 1.2.. Microbiology data currently showing urine culture positive for Gram-positive cocci in chains possible Enterococcus species and Rehana albicans. Blood culture preliminary results showing yeast. Limited 2D echo ordered showed a LVEF of 55-60%, there was no thrombus visualized in the left ventricle and remaining exam showed no changes of concern. Currently, the patient remains on antibiotic coverage with vancomycin, cefepime and Flagyl. Pressor therapy was discontinued and the patient remains on Solu-Cortef. No other complaint. 08/09/2024: At the time of my evaluation, the patient is lying in bed. She is wide await today's she remains on nasal cannula for oxygen supplementation. Hemodynamically stable on the monitor. Laboratory data today was notable for an improved WBC count now 27.2 H&H 7.6/23.3 and a platelet count of 872. Chemistry panel was unremarkable. Culture results show Enterococcus faecalis and Rehana albicans in the urine and Rehana parapsilosis in blood. No new imaging for review today. The patient continues on antibiotic therapy with cefepime, Flagyl and vancomycin. No other complaint. REVIEW OF SYSTEMS: 12 point ROS reviewed with patient. Pertinent positives mentioned above. Otherwise negative. PHYSICAL EXAM: GENERAL: Awake, alert and oriented x2 HEENT: EOMI, Sclera non icteric, moist mucosa NECK: Supple, no JVD, trachea midline LUNGS: Clear breath sounds bilaterally. No wheezes HEART: Regular rate and rhythm. Normal S1 and S2, without murmurs ABD: Abdomen soft, nontender. Bowel sounds present EXT: No clubbing cyanosis or edema NEURO: Able to follow commands Vital Signs (last 8hr) Date Time Temp Pulse Resp B/P (MAP) Pulse Ox O2 Delivery O2 Flow Rate FiO2 08/09/24 15:30 97.9 91 18 112/68 94 Nasal Cannula 2.0 08/09/24 11:19 102 18 08/09/24 11:00 97.7 100 17 123/75 100 Nasal Cannula 2.0 LABS: Hematology Labs: Test 08/09/24 04:00 08/08/24 05:56 Range/Units White Blood Count 27.2 H 4.8-10.8 K/uL Red Blood Count 2.47 L 4.00-5.50 MIL/uL Hemoglobin 7.6 L 12.0-16.0 g/dL Hematocrit 23.3 L 36-48 % Mean Corpuscular Volume 94.3 79-99 fL Mean Corpuscular Hemoglobin 30.8 27.0-33.0 pg Mean Corpuscular Hemoglobin Concent 32.6 32.0-36.0 g/dL Red Cell Distribution Width 17.6 H 11.0-15.5 % Platelet Count 872 *H 130-400 K/uL Mean Platelet Volume 9.9 7.5-10.5 fL Immature Granulocyte % (Auto) 3.5 H 0-1 % Neutrophils (%) (Auto) 91.7 H 40.0-77.0 % Lymphocytes (%) (Auto) 2.1 L 21.0-51.0 % Monocytes (%) (Auto) 2.5 L 3.0-13.0 % Eosinophils (%) (Auto) 0.0 0.0-8.0 % Basophils (%) (Auto) 0.2 0.0-5.0 % Neutrophils # (Auto) 25.0 H 1.8-7.7 K/uL Lymphocytes # (Auto) 0.6 L 1.0-4.8 K/uL Monocytes # (Auto) 0.7 0.1-1.0 K/uL Eosinophils # (Auto) 0.00 0.00-0.70 K/uL Basophils # (Auto) 0.05 0.00-0.20 K/uL Absolute Immature Granulocyte (auto 0.95 0-1 K/uL Nucleated Red Blood Cells 0.2 H 0.0-0.19 % Segmented Neutrophils % 98 H 40-70 % Monocytes % (Manual) 2 2-9 % Differential Comment MANUAL DIFFERENTIAL White Cell Morphology Comment Platelet Morphology Comment INCREASED Red Blood Cell Morphology See comments Chemistry Labs: Test 08/09/24 15:55 08/09/24 04:00 08/08/24 05:56 Range/Units Whole Blood Glucose 77 70-110 MG/DL Sodium Level 135 L 136-145 mmol/L Potassium Level 4.1 3.5-5.1 mmol/L Chloride Level 105 101-111 mmol/L Carbon Dioxide Level 21 21-32 mmol/L Blood Urea Nitrogen 29 H 7-18 mg/dL Creatinine 0.4 L 0.5-1.0 mg/dL Glomerular Filtration Rate Calc 108 >90 mL/min Random Glucose 80 70-105 mg/dL Total Calcium 8.0 L 8.5-10.1 mg/dL Magnesium Level 2.00 1.80-2.40 mg/dL Total Bilirubin 0.2 0.2-1.0 mg/dL Aspartate Amino Transf (AST/SGOT) 42 H 10-37 U/L Alanine Aminotransferase (ALT/SGPT) 10 L 12-78 U/L Alkaline Phosphatase 121 50-136 U/L B-Type Natriuretic Peptide 380 H 0-100 pg/mL Total Protein 5.1 L 6.0-8.3 g/dL Albumin 1.2 L 3.5-5.0 g/dL DIAGNOSTICS / RADIOLOGY RESULTS: [ ] PLAN 08/08/2024: For now, going to continue current management for the patient. Going to continue antibiotic therapy as ordered. We will follow the culture results and adjust antibiotic therapy with sensitivity report. Per the general surgeon, the patient can resume enteral feedings and no plan for surgical intervention at this time. The patient will remain on Solu-Cortef and monitor the blood pressure trend off Levophed. I believe the patient can be downgraded to PCCU. I discussed the findings and plan for further management with the patient. We will monitor the patient's progress and response to management. We will continue to provide general supportive care, GI and DVT prophylaxis. Further orders per attending MD and hospital course. 08/09/2024: For now, we are going to continue current management for the patient. Blood pressure has been sustained off pressor therapy. We will discontinue Solu-Cortef ordered. Infectious Disease specialist was brought on board and started the patient on micafungin due to the findings on blood and urine culture. We will repeat surveillance labs in the morning. I discussed the findings and plan for further management with the patient. We will monitor the patient's progress and response to management. We will continue to provide general supportive care, GI and DVT prophylaxis. Further orders per attending MD and hospital course. NEURO: Minimize central acting medications as possible. Maintain fall precautions, adequate lighting during the day PULMONARY: Supplemental 02 as needed. Maintain aspiration precautions at all times CARDIOVASCULAR: Follow hemodynamics. Vital signs per facility protocol GI & NUTRITION: Continue with nutritional support. Continue stool softeners and laxatives as needed. KIDNEYS & ELECTROLYTES: Strict monitoring of intake, output and overall fluid balance. Avoid nephrotoxic medications to the extent possible. Medications to be dosed according to renal function. Monitor electrolytes and replace as needed ENDOCRINE: Maintain blood glucose between 100-180 at all times. Hypoglycemia protocol in place INFECTIOUS DISEASE: Trend temperature, WBC and procalcitonin level Follow cultures, deescalate antibiotics as soon as possible. Panculture if new onset fever ONCOLOGY/HEMATOLOGY/COAGULATION: Monitor for s/s of bleeding Monitor hemoglobin, coagulation studies as needed SKIN: Pressure ulcer prevention per facility protocol Specialty mattress ORTHO/REHAB: Continue PT/OT Prophylaxis: Continue GI and DVT prophylaxis Code Status: Full Resuscitation Disposition: TBD Other: Patient was seen and case was discussed with masha LOGAN. Plan of care was discussed and agreed upon. VALDEMAR PATEL EMERGENCY ROOM PHYSICIAN August 09, 2024 17:45
[2024-08-09] MEDS ORDERED: VANCOMYCIN 750MG VIAL IVPB SCH (21:00)
[2024-08-09] MEDS: BALSAM PERU/CASTOR OIL 60 GM TUBE TP SCH (21:00)
[2024-08-09] MEDS: VANCOMYCIN 750MG VIAL IVPB SCH (23:18)
[2024-08-10] VITALS (11 sets, daily range): BP systolic 113–159; BP diastolic 70–84; PULSE 67–101; RESP 16–20; TEMP 97.8–98.3; O2SAT 95–99
[2024-08-10 04:23] LABS: BASOPHILS # (AUTO) 0.01 K/uL (0.00-0.20); BASOPHILS % (AUTO) 0.1 % (0.0-5.0); HEMATOCRIT 21.5 % (36-48); IMMATURE GRANULOCYTE ABSOLUTE 0.38 K/uL (0-1); LYMPHOCYTES # (AUTO) 0.7 K/uL (1.0-4.8); LYMPHOCYTES % (AUTO) 4.5 % (21.0-51.0); MEAN CORPUSCULAR HEMOGLOBIN 30.8 pg (27.0-33.0); MEAN CORPUSCULAR HGB CONC 32.1 g/dL (32.0-36.0); MONOCYTES # (AUTO) 1.2 K/uL (0.1-1.0); MONOCYTES % (AUTO) 7.4 % (3.0-13.0); NEUTROPHILS # (AUTO) 13.5 K/uL (1.8-7.7); NEUTROPHILS % (AUTO) 85.6 % (40.0-77.0); NUCLEATED RED BLOOD CELLS 0.2 % (0.0-0.19); RED BLOOD CELL COUNT(AUTO) 2.24 MIL/uL (4.00-5.50); RED CELL DISTRIBUTION WIDTH 18.2 % (11.0-15.5); WHITE BLOOD COUNT (AUTO) 15.7 K/uL (4.8-10.8)
[2024-08-10 04:50] LABS: ALBUMIN 1.3 g/dL (3.5-5.0); BILIRUBIN,TOTAL 0.2 mg/dL (0.2-1.0); CREATININE 0.5 mg/dL (0.5-1.0); MAGNESIUM 2.1 mg/dL (1.80-2.40); POTASSIUM 3.6 mmol/L (3.5-5.1); TOTAL PROTEIN, SERUM 4.7 g/dL (6.0-8.3)
[2024-08-10 05:22] LABS: PLATELET COUNT (AUTO) 759 K/uL (130-400)
--- NOTE | 2024-08-10 09:07 | PN ---
[facility] PROGRESS NOTE Date of Service: August 10, 2024 Time of Service: 09:04 SUBJECTIVE: [ 08/06/24 [Patient is 69 years old female with a past medical history of chronic anemia, GERD, hyperlipidemia, dementia, esophageal structure/stenosis, dysphagia s/p PEG tube placement. Crohn's disease, IBS, depression, hypertension, hypothyroidism, hyperlipidemia, GERD, chronic constipation, takotsubo cardiomyopathy, brain injury, gastric bypass 1991, neck surgery x2, bilateral knee surgery, carpal tunnel release, EGD with stent placement, who came to emergency department via EMS from [facility] for respiratory distress and abdominal pain. Per EMS patient was placed on oxygen and was having problems breathing. Patient is limited on verbalization. Patient was recently hospitalized to [facility] for GI bleed secondary to intestinal puncture. On 07/24/2024 exploratory lap was performed were replacement of G-tube was done with repair of bowel perforation by Dr Mccabe. Most recent 2D echo 07/10/2024 showed 60 to 65% stage I diastolic dysfunction. Most recent vital signs temperature 97.9 pulse 121 respiration 19 blood pressure 93/60 . Patient was placed on Levophed. Patient is satting 95% on 4 L nasal cannula. WBC 30.3 hemoglobin 8.2 hematocrit 24 platelets 820 UA positive for leukocytosis. Sodium 132 potassium 5.0 chloride 100 carbon dioxide 29 BUN 19 creatinine 0.9 GFR 108 lactic 1.9 calcium 8.1 CK 12 troponin 9 , BNP 951 procalcitonin negative. Chest x-ray showed bilateral pulmonary infiltrates suggestive of pulmonary vascular congestion, possible superimposed pneumonitis. CT abdomen/pelvis as per radiologist showed marked spleen and ischemic bowel. Surgeon Dr. Armendariz was notified regarding above finding and was consulted. Family members/ at the bedside was notified regards admission in the further plan. Patient will be admitted under hospitalist care for further evaluation/recommendation. Patient will be sent to ICU 08/07/24 patient was seen by nurse practitioner and physician during rounding in room 210. Patient continues to be on Levophed map 90. Patient was seen by surgeon and per her recommendation ascites, ileus, pleural effusion, and a splenic infarct of unknown etiology on Eliquis. No surgical intervention at this moment is recommended. In the meantime placed G-tube was straight drainage NPO for now strict I and loss. Etiology of infarction is unclear. Patient was also evaluated by the lithographic press operator apprentice no new recommendation at this moment. Continue current regimen of medications. Patient will receive pneumococcal vaccine, Hib, meningococcal vaccine as well. at the bedside was informed regards to further plan and recommendations. Patient will also receive 2 g of magnesium. One dose of furosemide IV push will be given to two bilateral lower extremities edema and bilateral upper extremities edema plus four. We will hold fluids for now. WBC 30.3. We will consult ID for antibiotic recommendations. 08/09 patient is seen and examined at bedside, case discussed with the RN, no acute events overnight, patient downgraded to the PCU. During my visit the patient is awake, following commands, on supplemental oxygen via nasal cannula 2 L, saturating 98%, hemodynamically stable, she is getting broad-spectrum IV antibiotics. is at bedside. Updated. Patient continues to be on Levophed map 90. Patient was seen by surgeon and per her recommendation ascites, ileus, pleural effusion, and a splenic infarct of unknown etiology on Eliquis. No surgical intervention at this moment is recommended. Etiology of infarction is unclear. Patient was also evaluated by the lithographic press operator apprentice no new recommendation at this moment. Patient noted to have thrombocytosis, hematuria consultation requested. Patient denies nausea, no vomiting, no abdominal discomfort, she feels hungry, we will resume diet and advanced slowly. We will continue to monitor. ID consultation requested as well, we will follow input and recommendation. 08/10 patient is seen and examined at bedside, case discussed with the RN, no acute events overnight, during my visit patient comfortably in bed, following commands, getting broad-spectrum IV antibiotics, getting nutritional support via PEG tube. is at bedside during my visit, advanced directive confirmed, patient is DNR/DNI, patient with a wrist band in place. Leukocytosis improving, today 15.7, hemoglobin dropped to 6.9, patient to receive 1 unit of PRBC today, we will follow CBC post transfusion. Platelet count improving, today 759. Patient evaluated by resawyer, thrombocytosis likely reactive/inflammatory, if no improvement patient will need bone marrow biopsy. at Bedside, uptake REVIEW OF SYSTEMS CONSTITUTIONAL: Denies fevers, chills, or night sweats. No unintentional weight loss reported. NEUROLOGICAL: Denies headache, amaurosis fugax, motor weakness, sensory deficit, vertigo/spinning sensation, gait abnormalities, or tremors. ENT: No hearing loss, otalgia, otorrhea, rhinitis, rhinorrhea, hoarseness, or sore throat. CARDIOVASCULAR: Denies any exertional angina, dyspnea on exertion, orthopnea, paroxysmal nocturnal dyspnea, palpitations, life-threatening arrhythmias, claudication. PULMONARY: Denies any , cough, phlegm/sputum, hemoptysis, pleuritic chest pain. Patient denies any shortness of breaths SLEEP: Denies morning headaches, daytime somnolence or napping. Denies difficulty falling asleep, staying asleep, waking from sleep. Denies knowledge of snoring. GASTROINTESTINAL: Denies any type of dysphagia to either liquids or solids. Denies nausea, vomiting, pyrosis, early satiety, diarrhea, constipation, or changes in stool consistency or caliber. Denies coffee-ground emesis, hematemesis, hematochezia, or melanotic stools. Patient complaining of abdominal pain GENITOURINARY: Denies frequency, urgency, nocturia, hematuria or incontinence (Storage/Irritative symptoms.) Low urinary stream, straining to void, urinary intermittency or hesitancy, splitting of the voiding stream, terminal dribbling. ENDOCRINOLOGIC: Denies polyuria, polydipsia, polyphagia or heat/cold intolerances. HEMATOLOGIC: Denies thrombophilia/previous clots, or coagulopathy/bleeding disorders. ONCOLOGIC: Denies personal history of malignancy. DERMATOLOGIC: Denies rashes or pruritus. PSYCHIATRIC: Denies any suicidal or homicidal ideation. Denies hallucinations. PHYSICAL EXAM GENERAL APPEARANCE: The patient is awake, alert, and disoriented in no acute cardiopulmonary distress. NEUROLOGICAL: Patient bed-bound. Patient contracted HEENT: Face is symmetric. Pupils are equal and reactive. Extraocular movements are intact. NECK: Supple. No JVD. No thyromegaly. No submental, submandibular, pre- /postauricular, occipital or supraclavicular lymphadenopathy. CHEST: Normal chest expansion. No Telemetry. LUNGS: Absence of any rales, rhonchi or any wheezing. CARDIOVASCULAR: Regular. S1 and S2 normal. No appreciable rubs, murmurs or gallops. ABDOMEN: Soft, , and nondistended. There is no rebound, voluntary guarding, or rigidity. Tender abdomen : Deferred. No Manuel. EXTREMITIES: Non-edematous and not cyanotic. No clubbing. Good capillary refill. SKIN: Multiple skin tears and bilateral lower extremities wounds Vital Signs (last 8hr) Date Time Temp Pulse Resp B/P (MAP) Pulse Ox O2 Delivery O2 Flow Rate FiO2 08/10/24 08:00 98.1 67 19 113/71 95 Nasal Cannula 2.0 08/10/24 06:42 101 18 08/10/24 06:42 101 18 N/A Room Air 21 08/10/24 03:08 97.9 95 16 119/70 92 Room Air LABS: Laboratory: Test 08/10/24 05:08 08/10/24 04:08 Range/Units Whole Blood Glucose 96 70-110 MG/DL White Blood Count 15.7 H 4.8-10.8 K/uL Red Blood Count 2.24 L 4.00-5.50 MIL/uL Hemoglobin 6.9 *L 12.0-16.0 g/dL Hematocrit 21.5 L 36-48 % Mean Corpuscular Volume 96.0 79-99 fL Mean Corpuscular Hemoglobin 30.8 27.0-33.0 pg Mean Corpuscular Hemoglobin Concent 32.1 32.0-36.0 g/dL Red Cell Distribution Width 18.2 H 11.0-15.5 % Platelet Count 759 #*H 130-400 K/uL Mean Platelet Volume 9.6 7.5-10.5 fL Immature Granulocyte % (Auto) 2.4 H 0-1 % Neutrophils (%) (Auto) 85.6 H 40.0-77.0 % Lymphocytes (%) (Auto) 4.5 L 21.0-51.0 % Monocytes (%) (Auto) 7.4 3.0-13.0 % Eosinophils (%) (Auto) 0.0 0.0-8.0 % Basophils (%) (Auto) 0.1 0.0-5.0 % Neutrophils # (Auto) 13.5 H 1.8-7.7 K/uL Lymphocytes # (Auto) 0.7 L 1.0-4.8 K/uL Monocytes # (Auto) 1.2 H 0.1-1.0 K/uL Eosinophils # (Auto) 0.00 0.00-0.70 K/uL Basophils # (Auto) 0.01 0.00-0.20 K/uL Absolute Immature Granulocyte (auto 0.38 0-1 K/uL Nucleated Red Blood Cells 0.2 H 0.0-0.19 % Sodium Level 139 136-145 mmol/L Potassium Level 3.6 3.5-5.1 mmol/L Chloride Level 109 101-111 mmol/L Carbon Dioxide Level 25 21-32 mmol/L Blood Urea Nitrogen 30 H 7-18 mg/dL Creatinine 0.5 0.5-1.0 mg/dL Glomerular Filtration Rate Calc 103 >90 mL/min Random Glucose 104 70-105 mg/dL Total Calcium 8.1 L 8.5-10.1 mg/dL Magnesium Level 2.10 1.80-2.40 mg/dL Total Bilirubin 0.2 0.2-1.0 mg/dL Aspartate Amino Transf (AST/SGOT) 88 H 10-37 U/L Alanine Aminotransferase (ALT/SGPT) 36 12-78 U/L Alkaline Phosphatase 196 H 50-136 U/L Total Protein 4.7 L 6.0-8.3 g/dL Albumin 1.3 L 3.5-5.0 g/dL Current Medications Medications (Trade) Dose Ordered Sig/Jennifer Route PRN Reason Start Time Stop Time Status Last Admin Dose Admin Acetaminophen (TYLenol 325MG TAB) 650 mg Q4H PRN PO MILD PAIN (1-3) 08/06/24 15:30 09/05/24 15:29 08/08/24 21:32 650 MG Acetaminophen (TYLenol 325MG TAB) 650 mg Q6H PRN PO MILD PAIN (1-3) 08/06/24 15:30 08/06/24 15:27 DC Acetaminophen (TYLenol 325MG TAB) 650 mg Q6H PRN PO TEMPERATURE GREATER THAN 101.5 08/06/24 15:30 09/05/24 15:29 Al Hydroxide/Mg Hydroxide (MAALox PLUS 30ML) 30 ml Q6H PRN PO INDIGESTION 08/06/24 15:30 09/05/24 15:29 Albuterol Sulfate (Proventil 0.083% 2.5mg/3ml) 2.5 mg [id number] PRN IH RESPIRATORY SYMPTOMS 08/06/24 15:30 09/05/24 15:29 Bacitracin (Bacitracin 28.4gm) Apply to right fore... DAILY TP 08/10/24 09:00 09/09/24 08:59 Cefepime HCl (MAXipime 1 GM vial) 1 gm Q8H IVPB 08/06/24 20:00 08/16/24 19:59 08/10/24 03:35 1 GM Ceftriaxone Sodium 2 gm/ Sodium Chloride 100 ml @ 200 mls/hr Q24H IV 08/06/24 15:30 08/06/24 15:27 DC Ceftriaxone Sodium (Rocephin 2gm Inj) 2 gm Q24H IVPB 08/06/24 16:00 08/06/24 15:37 DC Ceftriaxone Sodium (Rocephin 2gm Inj) 2 gm Q24H IVPB 08/07/24 16:00 08/06/24 17:54 DC Dextrose (D50w) 50 ml AD PRN IV HYPOGLYCEMIA PROTOCOL 08/06/24 15:30 09/05/24 15:29 08/09/24 12:05 50 ML Diphenhydramine HCl (BENAdryl INJ) 25 mg Q6H PRN IV SEVERE ITCHING/RASH 08/06/24 15:30 09/05/24 15:29 08/08/24 21:39 25 MG Famotidine (Pepcid 20mg Vial) 20 mg BID PRN IV NAUSEA/VOMITING 08/06/24 15:30 08/06/24 15:26 DC Famotidine (Pepcid 20mg Vial) 20 mg Q24H IV 08/06/24 21:00 09/05/24 20:59 08/09/24 23:19 20 MG Folic Acid (FOLic ACID 1 MG TABLET) 1 mg DAILY PO 08/09/24 09:00 09/08/24 08:59 08/09/24 16:01 1 MG Glucagon (Glucagon 1mg Kit) 1 mg AD PRN IM HYPOGLYCEMIA PROTOCOL 08/06/24 15:30 09/05/24 15:29 Guaifenesin/ Dextromethorphan (RobiTUSSin DM 200/20MG 10ML) 10 ml Q4H PRN PO COUGH 08/06/24 15:30 09/05/24 15:29 Heparin Sodium (Porcine) (HEParin 5,000 UNIT VIAL) 5,000 unit BID SQ 08/06/24 21:00 09/05/24 20:59 08/09/24 23:18 5,000 UNIT Hydralazine HCl (APRESOLine 20MG INJ) 10 mg Q6H PRN IV For:SBP above 160;DBP above 90 08/06/24 15:30 09/05/24 15:29 Hydrocortisone Sodium Succinate (Solu-corTEF 100MG) 50 mg Q6H6 IV 08/06/24 18:00 08/09/24 21:01 DC 08/09/24 18:37 50 MG Insulin Human Regular (humuLIN R 100 UNIT/ML 3ML) INSULIN SLIDING SCAL... ACHS SQ 08/06/24 16:30 09/05/24 16:29 Ipratropium [place] (AtrovENT UD) 0.5 mg [id number] IH 08/06/24 18:00 09/05/24 17:59 08/10/24 06:40 0.5 MG Ketorolac Tromethamine (toRADol) 15 mg Q8H PRN IV MODERATE PAIN (4-6) 08/06/24 15:30 08/06/24 15:34 DC Lactulose (Constulose 20gm/ 30ml Udcup) 20 gm BID PRN PO CONSTIPATION 08/06/24 15:30 09/05/24 15:29 Leptospermum Honey (Medihoney) 1 appl DAILY TP 08/08/24 11:30 09/07/24 11:29 08/09/24 09:00 1 APPL Magnesium Sulfate 50 ml @ 0 mls/hr PROTOCOL PRN IV other 08/06/24 15:30 09/05/24 15:29 08/07/24 05:21 0 MLS/HR Magnesium Sulfate (Magnesium 4gm Premix 100ml) 4 gm AD IV 08/07/24 07:00 08/08/24 12:51 DC Meningococcal Polysaccharide Vacc (Menveo [id number]-135-Dip Vial) 1 each ONCE IM 08/07/24 09:30 08/07/24 09:16 DC Metronidazole/ Sodium Chloride (flaGYL) 500 mg Q8H IV 08/06/24 18:00 08/16/24 17:59 08/10/24 02:58 500 MG Micafungin Sodium 100 ml @ 100 mls/hr Q24H IV 08/09/24 15:00 09/08/24 14:59 08/09/24 16:01 100 MLS/HR Morphine Sulfate (morPHINE 2MG SYG) 1 mg Q4H PRN IVP SEVERE PAIN (7-10) 08/06/24 15:30 08/13/24 15:29 08/08/24 18:04 1 MG Nitroglycerin (Nitrostat) 0.4 mg PROTOCOL PRN SL CHEST PAIN 08/06/24 15:30 09/05/24 15:29 Norepinephrine 250 ml @ 0 mls/hr PROTOCOL IV 08/06/24 15:30 09/05/24 15:29 08/07/24 03:23 14 MLS/HR Ondansetron HCl (zoFRAN 4MG INJ) 4 mg Q6H PRN IV NAUSEA/VOMITING 08/06/24 15:30 09/05/24 15:29 Oxycodone/ Acetaminophen (perCOCET) 1 tab Q6H PRN PO SEVERE PAIN (7-10) 08/06/24 15:30 08/06/24 15:27 DC Pharmacy Profile Note (Lace Assessment) 1 each AD MISC 08/07/24 13:30 08/08/24 12:51 DC Pharmacy Profile Note (Pharmacy Communication) 1 each ONCE MISC 08/09/24 14:00 08/09/24 14:31 DC Piperacillin Sod/ Tazobactam Sod (Zosyn 3.375gm+NS 50ml) 3.375 gm Q12H IV 08/06/24 12:30 08/06/24 15:14 DC 08/06/24 13:05 3.375 GM Potassium Chloride 100 ml @ 100 mls/hr AD PRN IV POTASSIUM PROTOCOL 08/06/24 15:30 09/05/24 15:29 Potassium Chloride (K-Dur 10meq Sr Tab) 10 meq AD PRN PO POTASSIUM PROTOCOL 08/06/24 15:30 09/05/24 15:29 Potassium Chloride (KCl 10% Elixir 20meq/15ml) 10 meq AD PRN PO POTASSIUM PROTOCOL 08/06/24 15:30 09/05/24 15:29 Sodium Chloride 1,000 ml @ 100 mls/hr Q10H IV 08/06/24 15:30 08/07/24 14:05 DC 08/06/24 15:35 100 MLS/HR Vancomycin HCl (Vancomycin 750mg) 750 mg Q12H IVPB 08/07/24 06:00 08/09/24 18:36 DC 08/09/24 06:36 750 MG Vancomycin HCl (Vancomycin 750mg) 750 mg Q12H IVPB 08/10/24 11:30 08/20/24 11:29 Vancomycin HCl (Vancomycin 750mg) 750 mg Q12H9 IVPB 08/09/24 21:00 08/09/24 18:54 DC Vancomycin HCl (Vancomycin 750mg) 750 mg Q12H9 IVPB 08/09/24 21:00 08/10/24 06:15 DC 08/09/24 23:18 750 MG Vancomycin HCl (Vancomycin Protocol) 1 each PROTOCOL PRN IV VANCOMYCIN PROTOCOL 08/06/24 15:30 08/20/24 15:29 Vitamin B Complex (Vitamin B-12) 1,000 mcg AM IM 08/10/24 14:00 09/09/24 13:59 Wound Care/ Dressing Products (Venelex Ointment) APPLY DIRECTED BID TP 08/09/24 21:00 09/08/24 20:59 08/09/24 21:00 1 GM Zolpidem Tartrate (AmbIEN) 5 mg HS PRN PO INSOMNIA 08/06/24 15:30 09/05/24 15:29 DIAGNOSTICS / RADIOLOGY: [ ] ASSESSMENT: [ Acute sepsis secondary to ischemic bowel, UTI POA Acute hypoxic respiratory failure POA Infarcted spleen per CT abdomen/pelvis POA Ischemic bowel per CT abdomen/pelvis POA Hypotension requiring Levophed drip POA Acute complicated cystitis POA Acute on chronic diastolic congestive heart failure 2D echo 60 to 65 % stage I dysfunction 07/10/2024 Esophageal structure/stenosis 07/24/2024 exploratory lap repair of G-tube repair of perforation Crohn's disease POA IBS POA Thrombocytopenia POA Depression POA Hypertension POA Hypothyroidism POA Chronic constipation POA Takotsubo cardiomyopathy POA Debility and frailty POA Chronic anemia POA GERD, POA Hyperlipidemia POA Multiple skin tears on arms with bilateral lower extremities wounds POA Dementia POA History of Recent GI bleedon previous admission due secondary to intestinal puncture History of brain injury History of EGD with stent placement 07/14/2024 History of carpal tunnel release History of neck surgery x2 History of bilateral knee surgery History of EGD with stent placement 07/14/2024] PLAN: Patient remains admitted to the PCU Continue nutritional support via PEG tube Continue the patient on broad-spectrum IV antibiotics, continue to monitor WBC in a.m. Patient to receive 1 unit of PRBC, follow CBC post transfusion Follow stool occult blood Continue to monitor platelet count. Hematology input noted and appreciated, likely inflammatory/infections, if no improvement patient will need bone marrow biopsy We will request speech therapy to evaluate the patient Patient remains DNR/DNI, discussed with the patient and the . NEURO: Minimize central acting medications as possible. Fall Precautions. Well lighted room through the day and minimize interruptions through the night to prevent acute delirium. PULMONARY: Supplemental 02 as needed BiPAP as necessary, for respiratory distress Titrate Fio2 to keep Spo2 > or = 90% DuoNebs and CPT as needed IS hourly while awake for pulmonary hygiene prn Out of bed to chair as tolerated Maintain aspiration precautions at all times CARDIOVASCULAR: Follow hemodynamics. Vital signs per facility protocol GI & NUTRITION: Continue nutritional support Aspirations precautions Prokinetic agents and laxatives as needed KIDNEYS & ELECTROLYTES: Strict monitoring of intake and output Daily weights Avoid nephrotoxic agents Monitor electrolytes and replace as needed Goal urine output of 30mL/hr or 0.5mL/kg/hr Medications to be dosed according to renal function. Avoid contrast if possible ENDOCRINE: Maintain blood glucose between 100-180 at all times. Insulin sliding scale for blood glucose management Hypoglycemia and hyperglycemia protocol in place INFECTIOUS DISEASE: Trend temperature, WBC and procalcitonin level Follow cultures, deescalate antibiotics as soon as possible. Panculture if new onset fever HEMATOLOGY & COAGULATION: Monitor H&H. Keep Hgb > 7 Transfuse 1 unit of PRBC for Hgb < 7 Transfuse 1 pack of platelets of platelets < 20, 000 Watch for any signs and symptoms of bleeding SKIN: Pressure ulcer prevention per facility protocol Specialty mattress as needed ORTHO/REHAB Continue PT/OT PRN: MEDICATIONS Tylenol 650 mg po every 4 hrs for fever zofran 4 mg IV every 6 hrs for n/v Hydralazine 5 mg IV every 4 hrs systolic pressure > 160 bowel regiment: lactulose 20 gm PO BID PRN constipation Supportive measures: Continue GI and DVT prophylaxis Disposition: Pending improvement in clinical condition All questions answered time spent: > 35 min LELE GALEANO MD August 10, 2024 09:06
[2024-08-10] MEDS: BACITRACIN 28.4 GM OINT TP SCH (11:18)
[2024-08-10] MEDS ORDERED: VANCOMYCIN 750MG VIAL IVPB SCH (11:30)
--- NOTE | 2024-08-10 13:16 | PN ---
The patient is a 69-year-old female with a complex medical history including: chronic anemia, dementia, esophageal stricture with PEG tube, Crohns disease, IBS, depression, generalized anxiety disorder, hypertension, hypothyroidism, hyperlipidemia, chronic constipation, Takotsubo cardiomyopathy, bilateral pulmonary embolism and DVTs with IVC filter placement, GERD, history of GI bleed requiring exploratory laparotomy and bowel repair with PEG tube replacement (July 24, 2024), and multiple prior surgeries (gastric bypass, bilateral knees, neck, EGD with stenting on July 14, 2024). She presented on August 06, 2024, from a [place] [facility] with respiratory distress and abdominal pain. EMS reported difficulty breathing and oxygen support requirement. She was found to be hypotensive and hypoxic, requiring ICU admission, broad-spectrum antibiotics, and fluid resuscitation. Workup revealed sepsis likely secondary to ischemic bowel and a UTI, thrombocytosis, severe anemia, pulmonary congestion, and splenic infarction. She has since improved on 2L nasal cannula, is hemodynamically stable, and remains NPO with PEG to straight drain. There is plan for speech therapist to evaluate the patient. Patient is receiving 1 unit of blood especially with the hemoglobin drop below 7. PHYSICAL EXAM GENERAL: ALERT, ORIENTED, APPEARS-NO ACUTE DISTRESS (Patient bed-bound. Patient contracted) EYES: No SCLERAE ANICTERIC, No PUPILS EQUAL/REACTIVE, No EXTRAOCULAR MUSCLES INTCT ENT/NECK: No ORAL MUCOSA W/O LESIONS, No OROPHARYNX IS CLEAR, No NECK SUPPLE W/O MASSES RESPIRATORY: LUNGS CLEAR-AUSC/PERCUS CARDIOVASCULAR: REGULAR RATE, REGULAR RHYTHM GASTROINTESTINAL: ABDOMEN IS SOFT, TENDER (Tender abdomen); No DISTENDED, No HEPATOSPLENOMEGALY, No BOWEL SOUNDS PRESENT, No PALPABLE MASSES HEMATOLOGY/LYMPHATIC: No CERVICAL ADENOPATHY, No SUPRACLAVICULR ADENOPATHY, No AXILLARY ADENOPATHY, No INGUINAL ADENOPATHY MUSCULOSKELETAL: No CYANOSIS-EXTREMETIES, No CLUBBING, No EDEMA SKIN/BREASTS: No MASSES, No RASH (Multiple skin tears and bilateral lower extremities wounds), No HIVES NEUROLOGICAL: GROSSLY INTACT (Patient bed-bound. Patient contracted) PSYCHOLOGICAL: No MINI MENTAL ASSMT INTACT Assessment 1. History of bilateral PE 2. History of DVT 3. History of IVC filter placement 4. Severe anemia status post blood transfusion 5. Crohn disease 6. History of gastric bypass procedure 7. Patient on Eliquis treatment. 8. Dysphagia status post PEG tube insertion. Plan 1. We will hold anticoagulation with Eliquis for now especially with the patient look like have the bleeding. 2. The patient want to eat. There is plan for evaluation by speech therapist. Patient receiving feedings through PEG tube. 3. Patient to receive 1 unit of packed red blood cell today. 4. CBC daily 5. If the patient becomes DNR/DNI on and hospice then I will sign off this case. Vitals/Labs Vital Signs Date Time Temp Pulse Resp B/P (MAP) Pulse Ox O2 Delivery O2 Flow Rate FiO2 08/10/24 12:00 98.2 98 19 122/78 97 Nasal Cannula 2.0 08/10/24 11:14 21 Laboratory Tests 08/10/24 04:08 Medications Current Medications Sodium Chloride 1,266 ml @ 422 mls/hr ONCE ONCE IV Last administered on 08/06/24at 10:13; Start 08/06/24 at 10:30; Stop 08/06/24 at 13:29; Status DC Ceftriaxone Sodium 1 gm ONCE ONCE IVPB Last administered on 08/06/24at 10:12; Start 08/06/24 at 10:30; Stop 08/06/24 at 10:31; Status DC Morphine Sulfate 2 mg ONCE ONCE IVP Last administered on 08/06/24at 11:20; Start 08/06/24 at 11:30; Stop 08/06/24 at 11:31; Status DC Ondansetron HCl 4 mg ONCE ONCE IVP Last administered on 08/06/24at 11:20; Start 08/06/24 at 11:30; Stop 08/06/24 at 11:31; Status DC Ceftriaxone Sodium 1 gm ONCE ONCE IVPB; Start 08/06/24 at 12:00; Stop 08/06/24 at 11:53; Status DC Sodium Chloride 1,266 ml @ 422 mls/hr ONCE ONCE IV; Start 08/06/24 at 12:00; Stop 08/06/24 at 11:53; Status DC Piperacillin Sod/ Tazobactam Sod 3.375 gm Q12H IV Last administered on 08/06/24at 13:05; Start 08/06/24 at 12:30; Stop 08/06/24 at 15:14; Status DC Iohexol 75 ml STK-MED ONCE IV; Start 08/06/24 at 12:45; Stop 08/06/24 at 12:46; Status DC Norepinephrine 250 ml @ 0 mls/hr PROTOCOL IV Last administered on 08/07/24at 03:23; Start 08/06/24 at 15:30; Stop 09/05/24 at 15:29 Insulin Human Regular INSULIN SLIDING SCAL... ACHS SQ; Start 08/06/24 at 16:30; Stop 09/05/24 at 16:29 Dextrose 50 ml AD PRN IV Last administered on 08/09/24at 12:05; Start 08/06/24 at 15:30; Stop 09/05/24 at 15:29 Glucagon 1 mg AD PRN IM; Start 08/06/24 at 15:30; Stop 09/05/24 at 15:29 Potassium Chloride 100 ml @ 100 mls/hr AD PRN IV; Start 08/06/24 at 15:30; Stop 09/05/24 at 15:29 Potassium Chloride 10 meq AD PRN PO; Start 08/06/24 at 15:30; Stop 09/05/24 at 15:29 Potassium Chloride 10 meq AD PRN PO; Start 08/06/24 at 15:30; Stop 09/05/24 at 15:29 Magnesium Sulfate 50 ml @ 0 mls/hr PROTOCOL PRN IV Last administered on 08/07/24at 05:21; Start 08/06/24 at 15:30; Stop 09/05/24 at 15:29 Diphenhydramine HCl 25 mg Q6H PRN IV Last administered on 08/08/24at 21:39; Start 08/06/24 at 15:30; Stop 09/05/24 at 15:29 Acetaminophen 650 mg Q6H PRN PO; Start 08/06/24 at 15:30; Stop 09/05/24 at 15:29 Acetaminophen 650 mg Q4H PRN PO Last administered on 08/08/24at 21:32; Start 08/06/24 at 15:30; Stop 09/05/24 at 15:29 Ondansetron HCl 4 mg Q6H PRN IV; Start 08/06/24 at 15:30; Stop 09/05/24 at 15:29 Zolpidem Tartrate 5 mg HS PRN PO; Start 08/06/24 at 15:30; Stop 09/05/24 at 15:29 Al Hydroxide/Mg Hydroxide 30 ml Q6H PRN PO; Start 08/06/24 at 15:30; Stop 09/05/24 at 15:29 Lactulose 20 gm BID PRN PO; Start 08/06/24 at 15:30; Stop 09/05/24 at 15:29 Nitroglycerin 0.4 mg PROTOCOL PRN SL; Start 08/06/24 at 15:30; Stop 09/05/24 at 15:29 Guaifenesin/ Dextromethorphan 10 ml Q4H PRN PO; Start 08/06/24 at 15:30; Stop 09/05/24 at 15:29 Ipratropium [place] 0.5 mg [id number] IH Last administered on 08/10/24at 11:13; Start 08/06/24 at 18:00; Stop 09/05/24 at 17:59 Famotidine 20 mg BID PRN IV; Start 08/06/24 at 15:30; Stop 08/06/24 at 15:26; Status DC Albuterol Sulfate 2.5 mg [id number] PRN IH; Start 08/06/24 at 15:30; Stop 09/05/24 at 15:29 Heparin Sodium (Porcine) 5,000 unit BID SQ Last administered on 08/09/24at 23:18; Start 08/06/24 at 21:00; Stop 09/05/24 at 20:59 Acetaminophen 650 mg Q6H PRN PO; Start 08/06/24 at 15:30; Stop 08/06/24 at 15:27; Status DC Ketorolac Tromethamine 15 mg Q8H PRN IV; Start 08/06/24 at 15:30; Stop 08/06/24 at 15:34; Status DC Oxycodone/ Acetaminophen 1 tab Q6H PRN PO; Start 08/06/24 at 15:30; Stop 08/06/24 at 15:27; Status DC Morphine Sulfate 1 mg Q4H PRN IVP Last administered on 08/10/24at 10:42; Start 08/06/24 at 15:30; Stop 08/13/24 at 15:29 Vancomycin HCl 1 each PROTOCOL PRN IV; Start 08/06/24 at 15:30; Stop 08/20/24 at 15:29 Sodium Chloride 1,000 ml @ 100 mls/hr Q10H IV Last administered on 08/06/24at 15:35; Start 08/06/24 at 15:30; Stop 08/07/24 at 14:05; Status DC Ceftriaxone Sodium 2 gm/ Sodium Chloride 100 ml @ 200 mls/hr Q24H IV; Start 08/06/24 at 15:30; Stop 08/06/24 at 15:27; Status DC Hydralazine HCl 10 mg Q6H PRN IV; Start 08/06/24 at 15:30; Stop 09/05/24 at 15:29 Famotidine 20 mg Q24H IV Last administered on 08/09/24at 23:19; Start 08/06/24 at 21:00; Stop 09/05/24 at 20:59 Ceftriaxone Sodium 2 gm Q24H IVPB; Start 08/06/24 at 16:00; Stop 08/06/24 at 15:37; Status DC Ceftriaxone Sodium 2 gm Q24H IVPB; Start 08/07/24 at 16:00; Stop 08/06/24 at 17:54; Status DC Vancomycin HCl 250 ml @ 125 mls/hr ONCE ONCE IV Last administered on 08/06/24at 16:23; Start 08/06/24 at 16:00; Stop 08/06/24 at 17:59; Status DC Vancomycin HCl 750 mg Q12H IVPB Last administered on 08/09/24at 06:36; Start 08/07/24 at 06:00; Stop 08/09/24 at 18:36; Status DC Cefepime HCl 1 gm Q8H IVPB Last administered on 08/10/24at 03:35; Start 08/06/24 at 20:00; Stop 08/16/24 at 19:59 Metronidazole/ Sodium Chloride 500 mg Q8H IV Last administered on 08/10/24at 10:02; Start 08/06/24 at 18:00; Stop 08/16/24 at 17:59 Hydrocortisone Sodium Succinate 50 mg Q6H6 IV Last administered on 08/09/24at 18:37; Start 08/06/24 at 18:00; Stop 08/09/24 at 21:01; Status DC Magnesium Sulfate 4 gm AD IV; Start 08/07/24 at 07:00; Stop 08/08/24 at 12:51; Status DC Furosemide 40 mg ONCE ONCE IV Last administered on 08/07/24at 09:33; Start 08/07/24 at 09:30; Stop 08/07/24 at 09:31; Status DC Hepatitis B Vaccine 0.5 ml ONCE ONCE IM Last administered on 08/07/24at 09:26; Start 08/07/24 at 09:30; Stop 08/07/24 at 09:31; Status DC Pneumococcal Polyvalent Vaccine 0.5 ml ONCE ONCE IM Last administered on 08/07/24at 09:30; Start 08/07/24 at 09:30; Stop 08/07/24 at 09:31; Status DC Meningococcal Polysaccharide Vacc 1 each ONCE IM; Start 08/07/24 at 09:30; Stop 08/07/24 at 09:16; Status DC Pharmacy Profile Note 1 each AD MISC; Start 08/07/24 at 13:30; Stop 08/08/24 at 12:51; Status DC Leptospermum Honey 1 appl DAILY TP Last administered on 08/10/24at 10:03; Start 08/08/24 at 11:30; Stop 09/07/24 at 11:29 Folic Acid 1 mg DAILY PO Last administered on 08/10/24at 10:04; Start 08/09/24 at 09:00; Stop 09/08/24 at 08:59 Vitamin B Complex 1,000 mcg AM IM; Start 08/10/24 at 14:00; Stop 09/09/24 at 13:59 Pharmacy Profile Note 1 each ONCE MISC; Start 08/09/24 at 14:00; Stop 08/09/24 at 14:31; Status DC Micafungin Sodium 100 ml @ 100 mls/hr Q24H IV Last administered on 08/09/24at 16:01; Start 08/09/24 at 15:00; Stop 09/08/24 at 14:59 Wound Care/ Dressing Products APPLY DIRECTED BID TP Last administered on 08/10/24at 11:18; Start 08/09/24 at 21:00; Stop 09/08/24 at 20:59 Bacitracin Apply to right fore... DAILY TP Last administered on 08/10/24at 11:18; Start 08/10/24 at 09:00; Stop 09/09/24 at 08:59 Vancomycin HCl 750 mg Q12H9 IVPB; Start 08/09/24 at 21:00; Stop 08/09/24 at 18:54; Status DC Vancomycin HCl 750 mg Q12H9 IVPB Last administered on 08/09/24at 23:18; Start 08/09/24 at 21:00; Stop 08/10/24 at 06:15; Status DC Vancomycin HCl 750 mg Q12H IVPB; Start 08/10/24 at 11:30; Stop 08/10/24 at 11:27; Status DC Vancomycin HCl 750 mg Q24H IVPB; Start 08/11/24 at 11:30; Stop 08/21/24 at 11:29 BEAR MATAMOROS MD August 10, 2024 13:16
--- NOTE | 2024-08-10 13:19 | PN ---
[facility] PROGRESS NOTE Date Patient Seen: August 10, 2024 Time of Visit: 13:11 Supervising Physician: Casper Lara MD Primary Care Physician: Dr. John Hopson Outpatient Specialists: [ ] Inpatient Consults: [ ] PROBLEM LIST: Acute hypoxemic respiratory failure POA. Rehana parapsilosis bacteremia Enterococcus faecalis and Rehana albicans UTI Acute sepsis and shock from intra-abdominal source POA. Infarcted spleen noted on CT abdomen and pelvis, POA. Ischemic bowel noted on CT abdomen and pelvis, POA. Chronic anemia POA Hypothyroidism POA Hyperlipidemia POA Hypertension POA GERD POA Severe protein calorie malnutrition POA Cachexia POA Mulitple wounds POA Debility and frailty POA Depression POA Dementia POA. History Of esophageal stricture POA Recent suspected bowel perforation, ruled out s/p exploratory laparotomy with lysis of adhesions and placement of a gastrostomy tube 22 [place] on 07/24/2024 INTERVAL HISTORY: DOS 08/10/24-patient is awake alert and oriented times person and place. Denies NS respiratory complaints denies any chest pain palpitations. She has been hemodynamically stable saturating 97% on room air. She has been in a speech eval this morning. On CBC WBCs trended down 15.7 today H&H 6.9/21.5 pending 1 unit of PRBCs to be transfused platelet count 759. Per commodity specialist hold anticoagulant due to high-risk secondary to acute anemia. AST 88, alkaline phosphatase 196 total protein 4.7 albumin of 1.3. Disposition per primary. Continues on vancomycin and cefepime. REVIEW OF SYSTEMS: 12 point ROS reviewed with patient. Pertinent positives mentioned above. Otherwise negative. PHYSICAL EXAM: GENERAL: Awake, alert and oriented x2 HEENT: EOMI, Sclera non icteric, moist mucosa NECK: Supple, no JVD, trachea midline LUNGS: Clear breath sounds bilaterally. No wheezes HEART: Regular rate and rhythm. Normal S1 and S2, without murmurs ABD: Abdomen soft, nontender. Bowel sounds present EXT: No clubbing cyanosis or edema NEURO: Able to follow commands Vital Signs (last 8hr) Date Time Temp Pulse Resp B/P (MAP) Pulse Ox O2 Delivery O2 Flow Rate FiO2 08/10/24 12:00 98.2 98 19 122/78 97 Nasal Cannula 2.0 08/10/24 11:14 89 18 N/A Room Air 21 08/10/24 11:14 89 18 08/10/24 08:00 98.1 67 19 113/71 95 Nasal Cannula 2.0 08/10/24 06:42 101 18 08/10/24 06:42 101 18 N/A Room Air 21 LABS: Hematology Labs: Test 08/10/24 04:08 Range/Units White Blood Count 15.7 H 4.8-10.8 K/uL Red Blood Count 2.24 L 4.00-5.50 MIL/uL Hemoglobin 6.9 *L 12.0-16.0 g/dL Hematocrit 21.5 L 36-48 % Mean Corpuscular Volume 96.0 79-99 fL Mean Corpuscular Hemoglobin 30.8 27.0-33.0 pg Mean Corpuscular Hemoglobin Concent 32.1 32.0-36.0 g/dL Red Cell Distribution Width 18.2 H 11.0-15.5 % Platelet Count 759 #*H 130-400 K/uL Mean Platelet Volume 9.6 7.5-10.5 fL Immature Granulocyte % (Auto) 2.4 H 0-1 % Neutrophils (%) (Auto) 85.6 H 40.0-77.0 % Lymphocytes (%) (Auto) 4.5 L 21.0-51.0 % Monocytes (%) (Auto) 7.4 3.0-13.0 % Eosinophils (%) (Auto) 0.0 0.0-8.0 % Basophils (%) (Auto) 0.1 0.0-5.0 % Neutrophils # (Auto) 13.5 H 1.8-7.7 K/uL Lymphocytes # (Auto) 0.7 L 1.0-4.8 K/uL Monocytes # (Auto) 1.2 H 0.1-1.0 K/uL Eosinophils # (Auto) 0.00 0.00-0.70 K/uL Basophils # (Auto) 0.01 0.00-0.20 K/uL Absolute Immature Granulocyte (auto 0.38 0-1 K/uL Nucleated Red Blood Cells 0.2 H 0.0-0.19 % Chemistry Labs: Test 08/10/24 11:09 08/10/24 04:08 Range/Units Whole Blood Glucose 89 70-110 MG/DL Sodium Level 139 136-145 mmol/L Potassium Level 3.6 3.5-5.1 mmol/L Chloride Level 109 101-111 mmol/L Carbon Dioxide Level 25 21-32 mmol/L Blood Urea Nitrogen 30 H 7-18 mg/dL Creatinine 0.5 0.5-1.0 mg/dL Glomerular Filtration Rate Calc 103 >90 mL/min Random Glucose 104 70-105 mg/dL Total Calcium 8.1 L 8.5-10.1 mg/dL Magnesium Level 2.10 1.80-2.40 mg/dL Total Bilirubin 0.2 0.2-1.0 mg/dL Aspartate Amino Transf (AST/SGOT) 88 H 10-37 U/L Alanine Aminotransferase (ALT/SGPT) 36 12-78 U/L Alkaline Phosphatase 196 H 50-136 U/L Total Protein 4.7 L 6.0-8.3 g/dL Albumin 1.3 L 3.5-5.0 g/dL DIAGNOSTICS / RADIOLOGY RESULTS: [ ] PLAN Follow Hematology recommendations. Transfuse 1 unit PRBCs for hemoglobin less than seven Disposition to SNF per primary team. Continue antibiotics with cefepime Flagyl and vanco NEURO: Minimize central acting medications as possible. Maintain fall precautions, adequate lighting during the day PULMONARY: Supplemental 02 as needed. Maintain aspiration precautions at all times CARDIOVASCULAR: Follow hemodynamics. Vital signs per facility protocol GI & NUTRITION: Continue with nutritional support. Continue stool softeners and laxatives as needed. KIDNEYS & ELECTROLYTES: Strict monitoring of intake, output and overall fluid balance. Avoid nephrotoxic medications to the extent possible. Medications to be dosed according to renal function. Monitor electrolytes and replace as needed ENDOCRINE: Maintain blood glucose between 100-180 at all times. Hypoglycemia protocol in place INFECTIOUS DISEASE: Trend temperature, WBC and procalcitonin level Follow cultures, deescalate antibiotics as soon as possible. Panculture if new onset fever ONCOLOGY/HEMATOLOGY/COAGULATION: Monitor for s/s of bleeding Monitor hemoglobin, coagulation studies as needed SKIN: Pressure ulcer prevention per facility protocol Specialty mattress ORTHO/REHAB: Continue PT/OT Prophylaxis: Continue GI and DVT prophylaxis Code Status: Full Resuscitation Disposition: TBD Other: I personally spent [35] minutes of critical care time in treatment of this patient. This includes patient management, time at bedside, time reviewing tests, labs, appropriate images and studies, documentation, and patient care coordination. This time excludes separately billable procedures. ATTESTATION BY PHYSICIAN I attest that I reviewed and discussed the case with the Physician Fbi Profiler as well as agree with the Physician Fbi Profiler's findings, plans of care, and documentation above. Casper Tinsley MD, NELLY J ARNP August 10, 2024 13:19
[2024-08-10] MEDS: CYANOCOBALAMIN (VITAMIN B-12) 1000 MCG/ML 1ML VIAL IM SCH (14:15)
--- NOTE | 2024-08-10 15:10 | NUR ---
BEDSIDE SWALLOW EVAL COMPLETED. No s/s of aspiration with thin liquids. Pt however unable to advance diet at this time until cleared by GI doctor. Patient/family report that after starting any oral intake, food backs up in esophagus and makes it difficult to swallow anything else. Pt is a patient of Dr. Monroy. Recommend, to first get clearance by GI MD prior to advancing any oral intake. Speech therapy not warranted at this time as patient does not present with oropharyngeal dysphagia. Etiology is due to issues with esophageal function. All questions answered. SURGICAL DEVICE SALES REPRESENTATIVE reviewed results and recommendations with patient and nurse Alejandra. SURGICAL DEVICE SALES REPRESENTATIVE educated patient on risks and consequences of aspiration. Addendum: 08/10/[address] [facility] Amended: Links added.
[2024-08-10 16:39] LABS: HEMATOCRIT 27.5 % (36-48)
--- NOTE | 2024-08-10 17:15 | PN ---
INFECTIOUS DISEASE PROGRESS NOTE Date of Service: August 10, 2024 SUBJECTIVE: This is a 69-year-old female patient was seen and examined at bedside in room 205. Patient is resting comfortable with head of the bed elevated. Tolerating tube feedings well. The blood culture results back positive for Rehana parapsilosis. We will continue on micafungin, vancomycin and cefepime. Hemoglobin is 6.9 today and will be transfused with 1 unit of PRBC. No other issues reported by nursing. PHYSICAL EXAM EYES: Anicteric. Pupils equal and reactive. HENT: No oral thrush seen, moist Oral mucosa. NECK: Supple, no JVD or thyromegaly. LUNGS: Good air entry. No rales, no rhonchi. CARDIOVASCULAR: S1, S2 regular. No murmur heard. ABDOMEN: Soft, non tender, bowel sounds present, no organomegaly. Abdominal pain. Peg tube. CENTRAL NERVOUS SYSTEM: Awake, alert, oriented x2. SKIN: No rashes, no swelling. LYMPHATICS: No peripheral lymphadenopathy. MUSCULOSKELETAL: No joint swelling, erythema or tenderness. EXTREMITIES: No cyanosis or clubbing. Upper and Lower extremity edema. BACK: No deformity, no pressure ulcer. GENITOURINARY: No dysuria or hematuria. Incontinence. Vital Sign (Last 12 Hours) 08/10/24 08/10/24 08/10/24 08/10/24 06:42 06:42 08:00 08:00 Temp 98.1 Pulse 101 101 67 Resp 18 18 19 B/P (MAP) 113/71 Pulse Ox 95 99 O2 Delivery N/A Room Air Nasal Cannula Nasal Cannula* O2 Flow Rate 2.0 2 FiO2 21 28 08/10/24 08/10/24 08/10/24 11:14 11:14 12:00 Temp 98.2 Pulse 89 89 98 Resp 18 18 19 B/P (MAP) 122/78 Pulse Ox 97 O2 Delivery N/A Room Air Nasal Cannula O2 Flow Rate 2.0 FiO2 21 Intake & Output (last 24hrs) 08/09/24 08/09/24 08/10/24 14:59 22:59 06:59 Intake Total 0 ml Output Total 1 ml 200 ml 100 ml Balance -1 ml -200 ml -100 ml LABS: Laboratory: Test 08/10/24 16:51 08/10/24 16:18 08/10/24 10:40 08/10/24 04:08 Range/Units Whole Blood Glucose 99 70-110 MG/DL Hemoglobin 8.8 #L 12.0-16.0 g/dL Hematocrit 27.5 #L 36-48 % Vancomycin Level Trough 23.8 #H 10.0-20.0 UG/ML White Blood Count 15.7 H 4.8-10.8 K/uL Red Blood Count 2.24 L 4.00-5.50 MIL/uL Mean Corpuscular Volume 96.0 79-99 fL Mean Corpuscular Hemoglobin 30.8 27.0-33.0 pg Mean Corpuscular Hemoglobin Concent 32.1 32.0-36.0 g/dL Red Cell Distribution Width 18.2 H 11.0-15.5 % Platelet Count 759 #*H 130-400 K/uL Mean Platelet Volume 9.6 7.5-10.5 fL Immature Granulocyte % (Auto) 2.4 H 0-1 % Neutrophils (%) (Auto) 85.6 H 40.0-77.0 % Lymphocytes (%) (Auto) 4.5 L 21.0-51.0 % Monocytes (%) (Auto) 7.4 3.0-13.0 % Eosinophils (%) (Auto) 0.0 0.0-8.0 % Basophils (%) (Auto) 0.1 0.0-5.0 % Neutrophils # (Auto) 13.5 H 1.8-7.7 K/uL Lymphocytes # (Auto) 0.7 L 1.0-4.8 K/uL Monocytes # (Auto) 1.2 H 0.1-1.0 K/uL Eosinophils # (Auto) 0.00 0.00-0.70 K/uL Basophils # (Auto) 0.01 0.00-0.20 K/uL Absolute Immature Granulocyte (auto 0.38 0-1 K/uL Nucleated Red Blood Cells 0.2 H 0.0-0.19 % Sodium Level 139 136-145 mmol/L Potassium Level 3.6 3.5-5.1 mmol/L Chloride Level 109 101-111 mmol/L Carbon Dioxide Level 25 21-32 mmol/L Blood Urea Nitrogen 30 H 7-18 mg/dL Creatinine 0.5 0.5-1.0 mg/dL Glomerular Filtration Rate Calc 103 >90 mL/min Random Glucose 104 70-105 mg/dL Total Calcium 8.1 L 8.5-10.1 mg/dL Magnesium Level 2.10 1.80-2.40 mg/dL Total Bilirubin 0.2 0.2-1.0 mg/dL Aspartate Amino Transf (AST/SGOT) 88 H 10-37 U/L Alanine Aminotransferase (ALT/SGPT) 36 12-78 U/L Alkaline Phosphatase 196 H 50-136 U/L Total Protein 4.7 L 6.0-8.3 g/dL Albumin 1.3 L 3.5-5.0 g/dL DIAGNOSTICS / RADIOLOGY: PATIENT: EFRAIN BAKER I ACCT: [id number] LOC: [facility] U: [id number] AGE/SX: 69/F ROOM: [facility] RE08/06/[address]: ALIREZA BUNDY MD : 1955 BED: 1 DIS: STATUS: ADM IN TLOC: SPEC: [id number] RICHI: 08/06/24 STATUS: COMP REQ: [id number] RECD: 08/08/[address]: JULIUS GOLDSTEIN MD SOURCE: BLOOD ENTR: 08/08/[address] [facility] DR: GLORIA MAYA [facility]: BLOOD ORDERED: AERO ID & SENS Procedure Result Sha Date-Time -------- ---- AEROBIC ID & SENSITIVITIES Final 08/09/24-1401 MRL COLONY DESCRIPTION: DAY 1: NO GROWTH DAY 2: YEAST SPECIES; NOT REHANA ALBICANS PEDIATRIC BOTTLE IDENTIFICATION TO FOLLOW NO FURTHER WORK-UP DONE REHANA PARAPSILOSIS Test(s) performed by: [facility] [address] [place] [address] ASSESSMENT: Fungemia. Urinary tract infection with Enterococcus faecalis and Rehana albicans. Leukocytosis. Sepsis. Suspected Ischemic bowel. Anasarca. Dementia. Dysphagia with PEG tube placement. History esophageal stricture/stenosis with stent placement 07/14/2024 Anemia requiring blood transfusion. PLAN: Continue Micanfungin IV. Continue vancomycin per pharmacy protocol. Continue cefepime. Continue GI prophylaxis. We will follow up on the final cultures. We will monitor electrolytes. Patient will be transfused 1 unit of PRBC today. This case was reviewed and discussed with my supervising physician and the above assessment and plan was formulated and agreed upon. ATTESTATION BY PHYSICIAN I have seen and examined the patient. I reviewed the documentation, medical decision making, and treatment plan as noted by the mid-level provider above. I agree with the findings and plan of care. LANA VICK MD, MIRTA L [facility] August 10, 2024 17:15
--- NOTE | 2024-08-10 23:20 | NUR ---
report given to tomer stiles
[2024-08-11] VITALS (11 sets, daily range): BP systolic 115–146; BP diastolic 67–85; PULSE 54–84; RESP 16–20; TEMP 97.8–98.4; O2SAT 95–97
[2024-08-11 05:12] LABS: BASOPHILS # (AUTO) 0.02 K/uL (0.00-0.20); BASOPHILS % (AUTO) 0.1 % (0.0-5.0); EOSINOPHILS # (AUTO) 0.03 K/uL (0.00-0.70); EOSINOPHILS % (AUTO) 0.2 % (0.0-8.0); HEMATOCRIT 29.8 % (36-48); IMMATURE GRANULOCYTE ABSOLUTE 0.22 K/uL (0-1); LYMPHOCYTES # (AUTO) 0.6 K/uL (1.0-4.8); LYMPHOCYTES % (AUTO) 4.1 % (21.0-51.0); MEAN CORPUSCULAR HEMOGLOBIN 30.7 pg (27.0-33.0); MEAN CORPUSCULAR HGB CONC 33.2 g/dL (32.0-36.0); MEAN CORPUSCULAR VOLUME 92.3 fL (79-99); MONOCYTES # (AUTO) 1.2 K/uL (0.1-1.0); NEUTROPHILS # (AUTO) 13.2 K/uL (1.8-7.7); NEUTROPHILS % (AUTO) 86.2 % (40.0-77.0); NUCLEATED RED BLOOD CELLS 0.1 % (0.0-0.19); RED BLOOD CELL COUNT(AUTO) 3.23 MIL/uL (4.00-5.50); RED CELL DISTRIBUTION WIDTH 17.4 % (11.0-15.5); WHITE BLOOD COUNT (AUTO) 15.3 K/uL (4.8-10.8)
[2024-08-11 05:18] LABS: PLATELET COUNT (AUTO) 819 K/uL (130-400)
[2024-08-11 05:38] LABS: ALBUMIN 1.4 g/dL (3.5-5.0); BILIRUBIN,TOTAL 0.2 mg/dL (0.2-1.0); CREATININE 0.5 mg/dL (0.5-1.0); MAGNESIUM 2.4 mg/dL (1.80-2.40)
[2024-08-11 06:09] LABS: POTASSIUM 2.5 mmol/L (3.5-5.1)
[2024-08-11] MEDS: PoTASSium chloRIDE 10MEQ/100ML 100 ML IV PRN (06:18)
--- NOTE | 2024-08-11 12:13 | PN ---
[facility] PROGRESS NOTE Date of Service: August 11, 2024 Time of Service: 12:09 SUBJECTIVE: [ 08/06/24 [Patient is 69 years old female with a past medical history of chronic anemia, GERD, hyperlipidemia, dementia, esophageal structure/stenosis, dysphagia s/p PEG tube placement. Crohn's disease, IBS, depression, hypertension, hypothyroidism, hyperlipidemia, GERD, chronic constipation, takotsubo cardiomyopathy, brain injury, gastric bypass 1991, neck surgery x2, bilateral knee surgery, carpal tunnel release, EGD with stent placement, who came to emergency department via EMS from [facility] for respiratory distress and abdominal pain. Per EMS patient was placed on oxygen and was having problems breathing. Patient is limited on verbalization. Patient was recently hospitalized to [facility] for GI bleed secondary to intestinal puncture. On 07/24/2024 exploratory lap was performed were replacement of G-tube was done with repair of bowel perforation by Dr Mccabe. Most recent 2D echo 07/10/2024 showed 60 to 65% stage I diastolic dysfunction. Most recent vital signs temperature 97.9 pulse 121 respiration 19 blood pressure 93/60 . Patient was placed on Levophed. Patient is satting 95% on 4 L nasal cannula. WBC 30.3 hemoglobin 8.2 hematocrit 24 platelets 820 UA positive for leukocytosis. Sodium 132 potassium 5.0 chloride 100 carbon dioxide 29 BUN 19 creatinine 0.9 GFR 108 lactic 1.9 calcium 8.1 CK 12 troponin 9 , BNP 951 procalcitonin negative. Chest x-ray showed bilateral pulmonary infiltrates suggestive of pulmonary vascular congestion, possible superimposed pneumonitis. CT abdomen/pelvis as per radiologist showed marked spleen and ischemic bowel. Surgeon Dr. Armendariz was notified regarding above finding and was consulted. Family members/ at the bedside was notified regards admission in the further plan. Patient will be admitted under hospitalist care for further evaluation/recommendation. Patient will be sent to ICU 08/07/24 patient was seen by nurse practitioner and physician during rounding in room 210. Patient continues to be on Levophed map 90. Patient was seen by surgeon and per her recommendation ascites, ileus, pleural effusion, and a splenic infarct of unknown etiology on Eliquis. No surgical intervention at this moment is recommended. In the meantime placed G-tube was straight drainage NPO for now strict I and loss. Etiology of infarction is unclear. Patient was also evaluated by the shipbuilding draftsperson no new recommendation at this moment. Continue current regimen of medications. Patient will receive pneumococcal vaccine, Hib, meningococcal vaccine as well. at the bedside was informed regards to further plan and recommendations. Patient will also receive 2 g of magnesium. One dose of furosemide IV push will be given to two bilateral lower extremities edema and bilateral upper extremities edema plus four. We will hold fluids for now. WBC 30.3. We will consult ID for antibiotic recommendations. 08/09 patient is seen and examined at bedside, case discussed with the RN, no acute events overnight, patient downgraded to the PCU. During my visit the patient is awake, following commands, on supplemental oxygen via nasal cannula 2 L, saturating 98%, hemodynamically stable, she is getting broad-spectrum IV antibiotics. is at bedside. Updated. Patient continues to be on Levophed map 90. Patient was seen by surgeon and per her recommendation ascites, ileus, pleural effusion, and a splenic infarct of unknown etiology on Eliquis. No surgical intervention at this moment is recommended. Etiology of infarction is unclear. Patient was also evaluated by the shipbuilding draftsperson no new recommendation at this moment. Patient noted to have thrombocytosis, hematuria consultation requested. Patient denies nausea, no vomiting, no abdominal discomfort, she feels hungry, we will resume diet and advanced slowly. We will continue to monitor. ID consultation requested as well, we will follow input and recommendation. 08/10 patient is seen and examined at bedside, case discussed with the RN, no acute events overnight, during my visit patient comfortably in bed, following commands, getting broad-spectrum IV antibiotics, getting nutritional support via PEG tube. is at bedside during my visit, advanced directive confirmed, patient is DNR/DNI, patient with a wrist band in place. Leukocytosis improving, today 15.7, hemoglobin dropped to 6.9, patient to receive 1 unit of PRBC today, we will follow CBC post transfusion. Platelet count improving, today 759. Patient evaluated by chip separator, thrombocytosis likely reactive/inflammatory, if no improvement patient will need bone marrow biopsy. at Bedside, uptake 08/11 Patient seen and examined, downgraded to medical floor, discussed with RN, resistance noted while using the PEG tube, patient is alert, following commands, not in the room during my visit. REVIEW OF SYSTEMS CONSTITUTIONAL: Denies fevers, chills, or night sweats. No unintentional weight loss reported. NEUROLOGICAL: Denies headache, amaurosis fugax, motor weakness, sensory deficit, vertigo/spinning sensation, gait abnormalities, or tremors. ENT: No hearing loss, otalgia, otorrhea, rhinitis, rhinorrhea, hoarseness, or sore throat. CARDIOVASCULAR: Denies any exertional angina, dyspnea on exertion, orthopnea, paroxysmal nocturnal dyspnea, palpitations, life-threatening arrhythmias, claudication. PULMONARY: Denies any , cough, phlegm/sputum, hemoptysis, pleuritic chest pain. Patient denies any shortness of breaths SLEEP: Denies morning headaches, daytime somnolence or napping. Denies difficulty falling asleep, staying asleep, waking from sleep. Denies knowledge of snoring. GASTROINTESTINAL: Denies any type of dysphagia to either liquids or solids. Denies nausea, vomiting, pyrosis, early satiety, diarrhea, constipation, or changes in stool consistency or caliber. Denies coffee-ground emesis, hematemesis, hematochezia, or melanotic stools. Patient complaining of abdominal pain GENITOURINARY: Denies frequency, urgency, nocturia, hematuria or incontinence (Storage/Irritative symptoms.) Low urinary stream, straining to void, urinary intermittency or hesitancy, splitting of the voiding stream, terminal dribbling. ENDOCRINOLOGIC: Denies polyuria, polydipsia, polyphagia or heat/cold intolerances. HEMATOLOGIC: Denies thrombophilia/previous clots, or coagulopathy/bleeding disorders. ONCOLOGIC: Denies personal history of malignancy. DERMATOLOGIC: Denies rashes or pruritus. PSYCHIATRIC: Denies any suicidal or homicidal ideation. Denies hallucinations. PHYSICAL EXAM GENERAL APPEARANCE: The patient is awake, alert, and disoriented in no acute cardiopulmonary distress. NEUROLOGICAL: Patient bed-bound. Patient contracted HEENT: Face is symmetric. Pupils are equal and reactive. Extraocular movements are intact. NECK: Supple. No JVD. No thyromegaly. No submental, submandibular, pre- /postauricular, occipital or supraclavicular lymphadenopathy. CHEST: Normal chest expansion. No Telemetry. LUNGS: Absence of any rales, rhonchi or any wheezing. CARDIOVASCULAR: Regular. S1 and S2 normal. No appreciable rubs, murmurs or gallops. ABDOMEN: Soft, , and nondistended. There is no rebound, voluntary guarding, or rigidity. Tender abdomen : Deferred. No Manuel. EXTREMITIES: Non-edematous and not cyanotic. No clubbing. Good capillary refill. SKIN: Multiple skin tears and bilateral lower extremities wounds Vital Signs (last 8hr) Date Time Temp Pulse Resp B/P (MAP) Pulse Ox O2 Delivery O2 Flow Rate FiO2 08/11/24 11:15 58 18 08/11/24 08:30 97.9 60 18 140/85 95 Room Air 08/11/24 07:21 72 18 N/A Room Air 21 08/11/24 07:19 72 18 LABS: Laboratory: Test 08/11/24 11:10 08/11/24 10:38 08/11/24 04:27 Range/Units Vancomycin Level Trough 18.7 # 10.0-20.0 UG/ML Whole Blood Glucose 115 H 70-110 MG/DL White Blood Count 15.3 H 4.8-10.8 K/uL Red Blood Count 3.23 L 4.00-5.50 MIL/uL Hemoglobin 9.9 L 12.0-16.0 g/dL Hematocrit 29.8 L 36-48 % Mean Corpuscular Volume 92.3 79-99 fL Mean Corpuscular Hemoglobin 30.7 27.0-33.0 pg Mean Corpuscular Hemoglobin Concent 33.2 32.0-36.0 g/dL Red Cell Distribution Width 17.4 H 11.0-15.5 % Platelet Count 819 *H 130-400 K/uL Mean Platelet Volume 9.7 7.5-10.5 fL Immature Granulocyte % (Auto) 1.4 H 0-1 % Neutrophils (%) (Auto) 86.2 H 40.0-77.0 % Lymphocytes (%) (Auto) 4.1 L 21.0-51.0 % Monocytes (%) (Auto) 8.0 3.0-13.0 % Eosinophils (%) (Auto) 0.2 0.0-8.0 % Basophils (%) (Auto) 0.1 0.0-5.0 % Neutrophils # (Auto) 13.2 H 1.8-7.7 K/uL Lymphocytes # (Auto) 0.6 L 1.0-4.8 K/uL Monocytes # (Auto) 1.2 H 0.1-1.0 K/uL Eosinophils # (Auto) 0.03 0.00-0.70 K/uL Basophils # (Auto) 0.02 0.00-0.20 K/uL Absolute Immature Granulocyte (auto 0.22 0-1 K/uL Nucleated Red Blood Cells 0.1 0.0-0.19 % Sodium Level 140 136-145 mmol/L Potassium Level 2.5 *L 3.5-5.1 mmol/L Chloride Level 108 101-111 mmol/L Carbon Dioxide Level 23 21-32 mmol/L Blood Urea Nitrogen 23 H 7-18 mg/dL Creatinine 0.5 0.5-1.0 mg/dL Glomerular Filtration Rate Calc 103 >90 mL/min Random Glucose 123 H 70-105 mg/dL Total Calcium 7.9 L 8.5-10.1 mg/dL Magnesium Level 2.40 1.80-2.40 mg/dL Total Bilirubin 0.2 0.2-1.0 mg/dL Aspartate Amino Transf (AST/SGOT) 83 H 10-37 U/L Alanine Aminotransferase (ALT/SGPT) 47 12-78 U/L Alkaline Phosphatase 211 H 50-136 U/L Total Protein 5.0 L 6.0-8.3 g/dL Albumin 1.4 L 3.5-5.0 g/dL Current Medications Medications (Trade) Dose Ordered Sig/Jennifer Route PRN Reason Start Time Stop Time Status Last Admin Dose Admin Acetaminophen (TYLenol 325MG TAB) 650 mg Q4H PRN PO MILD PAIN (1-3) 08/06/24 15:30 09/05/24 15:29 08/08/24 21:32 650 MG Acetaminophen (TYLenol 325MG TAB) 650 mg Q6H PRN PO MILD PAIN (1-3) 08/06/24 15:30 08/06/24 15:27 DC Acetaminophen (TYLenol 325MG TAB) 650 mg Q6H PRN PO TEMPERATURE GREATER THAN 101.5 08/06/24 15:30 09/05/24 15:29 Al Hydroxide/Mg Hydroxide (MAALox PLUS 30ML) 30 ml Q6H PRN PO INDIGESTION 08/06/24 15:30 09/05/24 15:29 Albuterol Sulfate (Proventil 0.083% 2.5mg/3ml) 2.5 mg [id number] PRN IH RESPIRATORY SYMPTOMS 08/06/24 15:30 09/05/24 15:29 Bacitracin (Bacitracin 28.4gm) Apply to right fore... DAILY TP 08/10/24 09:00 09/09/24 08:59 08/11/24 10:50 1 GM Cefepime HCl (MAXipime 1 GM vial) 1 gm Q8H IVPB 08/06/24 20:00 08/16/24 19:59 08/11/24 03:39 1 GM Ceftriaxone Sodium 2 gm/ Sodium Chloride 100 ml @ 200 mls/hr Q24H IV 08/06/24 15:30 08/06/24 15:27 DC Ceftriaxone Sodium (Rocephin 2gm Inj) 2 gm Q24H IVPB 08/06/24 16:00 08/06/24 15:37 DC Ceftriaxone Sodium (Rocephin 2gm Inj) 2 gm Q24H IVPB 08/07/24 16:00 08/06/24 17:54 DC Dextrose (D50w) 50 ml AD PRN IV HYPOGLYCEMIA PROTOCOL 08/06/24 15:30 09/05/24 15:29 08/09/24 12:05 50 ML Diphenhydramine HCl (BENAdryl INJ) 25 mg Q6H PRN IV SEVERE ITCHING/RASH 08/06/24 15:30 09/05/24 15:29 08/08/24 21:39 25 MG Famotidine (Pepcid 20mg Vial) 20 mg BID PRN IV NAUSEA/VOMITING 08/06/24 15:30 08/06/24 15:26 DC Famotidine (Pepcid 20mg Vial) 20 mg Q24H IV 08/06/24 21:00 09/05/24 20:59 08/10/24 21:34 20 MG Folic Acid (FOLic ACID 1 MG TABLET) 1 mg DAILY PO 08/09/24 09:00 09/08/24 08:59 08/11/24 10:49 1 MG Glucagon (Glucagon 1mg Kit) 1 mg AD PRN IM HYPOGLYCEMIA PROTOCOL 08/06/24 15:30 09/05/24 15:29 Guaifenesin/ Dextromethorphan (RobiTUSSin DM 200/20MG 10ML) 10 ml Q4H PRN PO COUGH 08/06/24 15:30 09/05/24 15:29 Heparin Sodium (Porcine) (HEParin 5,000 UNIT VIAL) 5,000 unit BID SQ 08/06/24 21:00 09/05/24 20:59 08/10/24 22:23 5,000 UNIT Hydralazine HCl (APRESOLine 20MG INJ) 10 mg Q6H PRN IV For:SBP above 160;DBP above 90 08/06/24 15:30 09/05/24 15:29 Hydrocortisone Sodium Succinate (Solu-corTEF 100MG) 50 mg Q6H6 IV 08/06/24 18:00 08/09/24 21:01 DC 08/09/24 18:37 50 MG Insulin Human Regular (humuLIN R 100 UNIT/ML 3ML) INSULIN SLIDING SCAL... ACHS SQ 08/06/24 16:30 09/05/24 16:29 Ipratropium Foley (AtrovENT UD) 0.5 mg [id number] IH 08/06/24 18:00 09/05/24 17:59 08/11/24 11:15 0.5 MG Ketorolac Tromethamine (toRADol) 15 mg Q8H PRN IV MODERATE PAIN (4-6) 08/06/24 15:30 08/06/24 15:34 DC Lactulose (Constulose 20gm/ 30ml Udcup) 20 gm BID PRN PO CONSTIPATION 08/06/24 15:30 09/05/24 15:29 Leptospermum Honey [facility]) 1 appl DAILY TP 08/08/24 11:30 09/07/24 11:29 08/11/24 10:50 1 APPL Magnesium Sulfate 50 ml @ 0 mls/hr PROTOCOL PRN IV other 08/06/24 15:30 09/05/24 15:29 08/07/24 05:21 0 MLS/HR Magnesium Sulfate (Magnesium 4gm Premix 100ml) 4 gm AD IV 08/07/24 07:00 08/08/24 12:51 DC Meningococcal Polysaccharide Vacc (Esperanzao O-A-M-w-135-Dip Vial) 1 each ONCE IM 08/07/24 09:30 08/07/24 09:16 DC Metronidazole/ Sodium Chloride (flaGYL) 500 mg Q8H IV 08/06/24 18:00 08/16/24 17:59 08/11/24 10:50 500 MG Micafungin Sodium 100 ml @ 100 mls/hr Q24H IV 08/09/24 15:00 09/08/24 14:59 08/10/24 14:04 100 MLS/HR Morphine Sulfate (morPHINE 2MG SYG) 1 mg Q4H PRN IVP SEVERE PAIN (7-10) 08/06/24 15:30 08/13/24 15:29 08/10/24 22:14 1 MG Nitroglycerin (Nitrostat) 0.4 mg PROTOCOL PRN SL CHEST PAIN 08/06/24 15:30 09/05/24 15:29 Norepinephrine 250 ml @ 0 mls/hr PROTOCOL IV 08/06/24 15:30 09/05/24 15:29 08/07/24 03:23 14 MLS/HR Ondansetron HCl (zoFRAN 4MG INJ) 4 mg Q6H PRN IV NAUSEA/VOMITING 08/06/24 15:30 09/05/24 15:29 Oxycodone/ Acetaminophen (perCOCET) 1 tab Q6H PRN PO SEVERE PAIN (7-10) 08/06/24 15:30 08/06/24 15:27 DC Pharmacy Profile Note (Lace Assessment) 1 each AD MISC 08/07/24 13:30 08/08/24 12:51 DC Pharmacy Profile Note (Pharmacy Communication) 1 each ONCE MISC 08/09/24 14:00 08/09/24 14:31 DC Piperacillin Sod/ Tazobactam Sod (Zosyn 3.375gm+NS 50ml) 3.375 gm Q12H IV 08/06/24 12:30 08/06/24 15:14 DC 08/06/24 13:05 3.375 GM Potassium Chloride 100 ml @ 100 mls/hr AD PRN IV POTASSIUM PROTOCOL 08/06/24 15:30 09/05/24 15:29 08/11/24 10:55 100 MLS/HR Potassium Chloride (K-Dur 10meq Sr Tab) 10 meq AD PRN PO POTASSIUM PROTOCOL 08/06/24 15:30 09/05/24 15:29 Potassium Chloride (KCl 10% Elixir 20meq/15ml) 10 meq AD PRN PO POTASSIUM PROTOCOL 08/06/24 15:30 09/05/24 15:29 Sodium Chloride 1,000 ml @ 100 mls/hr Q10H IV 08/06/24 15:30 08/07/24 14:05 DC 08/06/24 15:35 100 MLS/HR Vancomycin HCl (Vancomycin 750mg) 750 mg Q12H IVPB 08/07/24 06:00 08/09/24 18:36 DC 08/09/24 06:36 750 MG Vancomycin HCl (Vancomycin 750mg) 750 mg Q12H IVPB 08/10/24 11:30 08/10/24 11:27 DC Vancomycin HCl (Vancomycin 750mg) 750 mg Q12H9 IVPB 08/09/24 21:00 08/09/24 18:54 DC Vancomycin HCl (Vancomycin 750mg) 750 mg Q12H9 IVPB 08/09/24 21:00 08/10/24 06:15 DC 08/09/24 23:18 750 MG Vancomycin HCl (Vancomycin 750mg) 750 mg Q24H IVPB 08/11/24 11:30 08/21/24 11:29 Vancomycin HCl (Vancomycin Protocol) 1 each PROTOCOL PRN IV VANCOMYCIN PROTOCOL 08/06/24 15:30 08/20/24 15:29 Vitamin B Complex (Vitamin B-12) 1,000 mcg AM IM 08/10/24 14:00 09/09/24 13:59 08/11/24 10:50 1,000 MCG Wound Care/ Dressing Products (Venelex Ointment) APPLY DIRECTED BID TP 08/09/24 21:00 09/08/24 20:59 08/11/24 10:50 1 GM Zolpidem Tartrate (AmbIEN) 5 mg HS PRN PO INSOMNIA 08/06/24 15:30 09/05/24 15:29 DIAGNOSTICS / RADIOLOGY: [ ] ASSESSMENT: [ Acute sepsis secondary to ischemic bowel, UTI POA Acute hypoxic respiratory failure POA Infarcted spleen per CT abdomen/pelvis POA Ischemic bowel per CT abdomen/pelvis POA Hypotension requiring Levophed drip POA Acute complicated cystitis POA Acute on chronic diastolic congestive heart failure 2D echo 60 to 65 % stage I dysfunction 07/10/2024 Esophageal structure/stenosis 07/24/2024 exploratory lap repair of G-tube repair of perforation Crohn's disease POA IBS POA Thrombocytopenia POA Depression POA Hypertension POA Hypothyroidism POA Chronic constipation POA Takotsubo cardiomyopathy POA Debility and frailty POA Chronic anemia POA GERD, POA Hyperlipidemia POA Multiple skin tears on arms with bilateral lower extremities wounds POA Dementia POA History of Recent GI bleedon previous admission due secondary to intestinal puncture History of brain injury History of EGD with stent placement 07/14/2024 History of carpal tunnel release History of neck surgery x2 History of bilateral knee surgery History of EGD with stent placement 07/14/2024] Possible malfunction PEG tube PLAN: Patient downgraded to medical floor. Per discussed with RN, resistance noted while using the PEG tube, Possible malfunction PEG tube, will reconsult GI. Continue the patient on broad-spectrum IV antibiotics, continue to monitor WBC in a.m. Continue transfusion of PRBC as needed Continue to monitor platelet count. Hematology input noted and appreciated, likely inflammatory/infections, if no improvement patient will need bone marrow biopsy Already evaluated by speech therapy Patient remains DNR/DNI, discussed with the patient and the . NEURO: Minimize central acting medications as possible. Fall Precautions. Well lighted room through the day and minimize interruptions through the night to prevent acute delirium. PULMONARY: Supplemental 02 as needed BiPAP as necessary, for respiratory distress Titrate Fio2 to keep Spo2 > or = 90% DuoNebs and CPT as needed IS hourly while awake for pulmonary hygiene prn Out of bed to chair as tolerated Maintain aspiration precautions at all times CARDIOVASCULAR: Follow hemodynamics. Vital signs per facility protocol GI & NUTRITION: Continue nutritional support Aspirations precautions Prokinetic agents and laxatives as needed KIDNEYS & ELECTROLYTES: Strict monitoring of intake and output Daily weights Avoid nephrotoxic agents Monitor electrolytes and replace as needed Goal urine output of 30mL/hr or 0.5mL/kg/hr Medications to be dosed according to renal function. Avoid contrast if possible ENDOCRINE: Maintain blood glucose between 100-180 at all times. Insulin sliding scale for blood glucose management Hypoglycemia and hyperglycemia protocol in place INFECTIOUS DISEASE: Trend temperature, WBC and procalcitonin level Follow cultures, deescalate antibiotics as soon as possible. Panculture if new onset fever HEMATOLOGY & COAGULATION: Monitor H&H. Keep Hgb > 7 Transfuse 1 unit of PRBC for Hgb < 7 Transfuse 1 pack of platelets of platelets < 20, 000 Watch for any signs and symptoms of bleeding SKIN: Pressure ulcer prevention per facility protocol Specialty mattress as needed ORTHO/REHAB Continue PT/OT PRN: MEDICATIONS Tylenol 650 mg po every 4 hrs for fever zofran 4 mg IV every 6 hrs for n/v Hydralazine 5 mg IV every 4 hrs systolic pressure > 160 bowel regiment: lactulose 20 gm PO BID PRN constipation Supportive measures: Continue GI and DVT prophylaxis Disposition: Pending improvement in clinical condition All questions answered time spent: > 35 min LELE GALEANO MD August 11, 2024 12:13
[2024-08-11] MEDS: PoTASSium chloRIDE 20MEQ ER 20 MEQ ERTAB PO ONE (12:30)
[2024-08-11] MEDS: PoTASSium chloRIDE 20MEQ/100ML 100 ML IV ONE (13:05)
[2024-08-11] MEDS: VANCOMYCIN 750MG VIAL IVPB SCH (13:06)
--- NOTE | 2024-08-11 15:34 | PN ---
INFECTIOUS DISEASE PROGRESS NOTE Date of Service: August 11, 2024 SUBJECTIVE: This is a 69-year-old female patient was seen and examined at bedside in room 303. Patient is no distress and saturating 95-97% on room air. Patient is afebrile, temperature is 98.4 and the WBC continues to improve and is 15.3 today. Hemoglobin is stable at 9.9 after the 1 unit of PRBC transfused yesterday. We will continue on micafungin, vancomycin and cefepime. We will continue to follow patient's care. PHYSICAL EXAM EYES: Anicteric. Pupils equal and reactive. HENT: No oral thrush seen, moist Oral mucosa. NECK: Supple, no JVD or thyromegaly. LUNGS: Good air entry. No rales, no rhonchi. CARDIOVASCULAR: S1, S2 regular. No murmur heard. ABDOMEN: Soft, bowel sounds present, no organomegaly. Abdominal pain. Peg tube. CENTRAL NERVOUS SYSTEM: Awake, alert, oriented x2. SKIN: No rashes, no swelling. LYMPHATICS: No peripheral lymphadenopathy. MUSCULOSKELETAL: No joint swelling, erythema or tenderness. EXTREMITIES: No cyanosis or clubbing. Upper and Lower extremity edema. BACK: No deformity, no pressure ulcer. GENITOURINARY: No dysuria or hematuria. Incontinence. Vital Sign (Last 12 Hours) 08/11/24 08/11/24 08/11/24 08/11/24 03:58 07:19 07:21 08:30 Temp 98.1 97.9 Pulse 84 72 72 60 Resp 20 18 18 18 B/P (MAP) 146/84 140/85 Pulse Ox 95 95 O2 Delivery Room Air N/A Room Air Room Air FiO2 21 08/11/24 08/11/24 11:15 12:39 Temp 98.4 Pulse 58 55 Resp 18 18 B/P (MAP) 121/67 Pulse Ox 97 O2 Delivery Room Air Intake & Output (last 24hrs) 08/10/24 08/10/24 08/11/24 15:00 23:00 07:00 Intake Total 740.0 ml 230 ml 100 ml Output Total 700 ml Balance 740.0 ml -470 ml 100 ml LABS: Laboratory: Test 08/11/24 11:10 08/11/24 10:38 08/11/24 04:27 Range/Units Vancomycin Level Trough 18.7 # 10.0-20.0 UG/ML Whole Blood Glucose 115 H 70-110 MG/DL White Blood Count 15.3 H 4.8-10.8 K/uL Red Blood Count 3.23 L 4.00-5.50 MIL/uL Hemoglobin 9.9 L 12.0-16.0 g/dL Hematocrit 29.8 L 36-48 % Mean Corpuscular Volume 92.3 79-99 fL Mean Corpuscular Hemoglobin 30.7 27.0-33.0 pg Mean Corpuscular Hemoglobin Concent 33.2 32.0-36.0 g/dL Red Cell Distribution Width 17.4 H 11.0-15.5 % Platelet Count 819 *H 130-400 K/uL Mean Platelet Volume 9.7 7.5-10.5 fL Immature Granulocyte % (Auto) 1.4 H 0-1 % Neutrophils (%) (Auto) 86.2 H 40.0-77.0 % Lymphocytes (%) (Auto) 4.1 L 21.0-51.0 % Monocytes (%) (Auto) 8.0 3.0-13.0 % Eosinophils (%) (Auto) 0.2 0.0-8.0 % Basophils (%) (Auto) 0.1 0.0-5.0 % Neutrophils # (Auto) 13.2 H 1.8-7.7 K/uL Lymphocytes # (Auto) 0.6 L 1.0-4.8 K/uL Monocytes # (Auto) 1.2 H 0.1-1.0 K/uL Eosinophils # (Auto) 0.03 0.00-0.70 K/uL Basophils # (Auto) 0.02 0.00-0.20 K/uL Absolute Immature Granulocyte (auto 0.22 0-1 K/uL Nucleated Red Blood Cells 0.1 0.0-0.19 % Sodium Level 140 136-145 mmol/L Potassium Level 2.5 *L 3.5-5.1 mmol/L Chloride Level 108 101-111 mmol/L Carbon Dioxide Level 23 21-32 mmol/L Blood Urea Nitrogen 23 H 7-18 mg/dL Creatinine 0.5 0.5-1.0 mg/dL Glomerular Filtration Rate Calc 103 >90 mL/min Random Glucose 123 H 70-105 mg/dL Total Calcium 7.9 L 8.5-10.1 mg/dL Magnesium Level 2.40 1.80-2.40 mg/dL Total Bilirubin 0.2 0.2-1.0 mg/dL Aspartate Amino Transf (AST/SGOT) 83 H 10-37 U/L Alanine Aminotransferase (ALT/SGPT) 47 12-78 U/L Alkaline Phosphatase 211 H 50-136 U/L Total Protein 5.0 L 6.0-8.3 g/dL Albumin 1.4 L 3.5-5.0 g/dL ASSESSMENT: Fungemia. Urinary tract infection with Enterococcus faecalis and Rehana albicans. Leukocytosis. Sepsis. Suspected Ischemic bowel. Anasarca. Dementia. Dysphagia with PEG tube placement. History esophageal stricture/stenosis with stent placement 07/14/2024 Anemia, status post blood transfusion. PLAN: Continue Micanfungin IV. Continue vancomycin per pharmacy protocol. Continue cefepime. Continue GI prophylaxis. Continue monitoring hemoglobin and hematocrit. We will monitor electrolytes. This case was reviewed and discussed with my supervising physician and the above assessment and plan was formulated and agreed upon. ATTESTATION BY PHYSICIAN I have seen and examined the patient. I reviewed the documentation, medical decision making, and treatment plan as noted by the mid-level provider above. I agree with the findings and plan of care. LANA VICK MD, [facility] August 11, 2024 15:34
--- NOTE | 2024-08-11 15:47 | NUR ---
Nutritional f/u Note: Chart, meds, and labs Reviewed. Pt s/p APPLICATION LEAD evaluation 08/10/24: No s/s of aspiration with thin liquids. Pt however unable to advance diet at this time until cleared by GI doctor. Patient/family report that after starting any oral intake, food backs up in esophagus and makes it difficult to swallow anything else. Pt is a patient of Dr. Monroy. Recommend, to first get clearance by GI MD prior to advancing any oral intake. Pt continues on TF and tolerating. Abnormal nutrition related labs: K 2.5 Recommend: -TF goal rate 40ml/hr with 150ml H20 flush q 4 or H20 flsh as per MD. (TF to provide 1440kcal 61gm pro with Prostat 91gm pjro and 1640kcal/day) -ProStat BID (30 ml) with 75ml H20 flush Which will aid in wound healing. Balance protein calorie intake to promote wound healing. This provides 3.3 mg L-arginine, 15 gm protein and 100 kcal per 30 ml -Zinc Sulfate 220mg BID, Vit C 500mg BID, and MVI -Nephrovite MVI combination of B vitamins may be used to treat or prevent vitamin deficiency due to poor diet. - Electrolyte replacements per protocol -Monitor feeding tolerance, wt, and labs -If No BM >3days consider bowel stimulant. - Notify RD if additional nutrition concerns arise. - Please notify RD if additional nutrition concerns arise. Addendum: 08/11/24 at [address] Amended: Links added.
--- NOTE | 2024-08-11 17:44 | PN ---
The patient is a 69-year-old female with a complex medical history including: chronic anemia, dementia, esophageal stricture with PEG tube, Crohns disease, IBS, depression, generalized anxiety disorder, hypertension, hypothyroidism, hyperlipidemia, chronic constipation, Takotsubo cardiomyopathy, bilateral pulmonary embolism and DVTs with IVC filter placement, GERD, history of GI bleed requiring exploratory laparotomy and bowel repair with PEG tube replacement (July 24, 2024), and multiple prior surgeries (gastric bypass, bilateral knees, neck, EGD with stenting on July 14, 2024). She presented on August 06, 2024, from a halfway with respiratory distress and abdominal pain. EMS reported difficulty breathing and oxygen support requirement. She was found to be hypotensive and hypoxic, requiring ICU admission, broad-spectrum antibiotics, and fluid resuscitation. Workup revealed sepsis likely secondary to ischemic bowel and a UTI, thrombocytosis, severe anemia, pulmonary congestion, and splenic infarction. She has since improved on 2L nasal cannula, is hemodynamically stable, and remains NPO with PEG to straight drain. There is plan for speech therapist to evaluate the patient. Patient is receiving 1 unit of blood especially with the hemoglobin drop below 7. PHYSICAL EXAM GENERAL: ALERT, ORIENTED, APPEARS-NO ACUTE DISTRESS (Patient bed-bound. Patient contracted) EYES: No SCLERAE ANICTERIC, No PUPILS EQUAL/REACTIVE, No EXTRAOCULAR MUSCLES INTCT ENT/NECK: No ORAL MUCOSA W/O LESIONS, No OROPHARYNX IS CLEAR, No NECK SUPPLE W/O MASSES RESPIRATORY: LUNGS CLEAR-AUSC/PERCUS CARDIOVASCULAR: REGULAR RATE, REGULAR RHYTHM GASTROINTESTINAL: ABDOMEN IS SOFT, TENDER (Tender abdomen); No DISTENDED, No HEPATOSPLENOMEGALY, No BOWEL SOUNDS PRESENT, No PALPABLE MASSES HEMATOLOGY/LYMPHATIC: No CERVICAL ADENOPATHY, No SUPRACLAVICULR ADENOPATHY, No AXILLARY ADENOPATHY, No INGUINAL ADENOPATHY MUSCULOSKELETAL: No CYANOSIS-EXTREMETIES, No CLUBBING, No EDEMA SKIN/BREASTS: No MASSES, No RASH (Multiple skin tears and bilateral lower extremities wounds), No HIVES NEUROLOGICAL: GROSSLY INTACT (Patient bed-bound. Patient contracted) PSYCHOLOGICAL: No MINI MENTAL ASSMT INTACT Assessment 1. History of bilateral PE 2. History of DVT 3. History of IVC filter placement 4. Severe anemia status post blood transfusion 5. Crohn disease 6. History of gastric bypass procedure 7. Patient on Eliquis treatment. 8. Dysphagia status post PEG tube insertion. Plan 1. We will hold anticoagulation with Eliquis for now especially with the patient look like have the bleeding. 2. The patient want to eat. There is plan for evaluation by speech therapist. Patient receiving feedings through PEG tube. 3. Patient to receive 1 unit of packed red blood cell today. 4. CBC daily 5. If the patient becomes DNR/DNI on and hospice then I will sign off this case. Vitals/Labs Vital Signs Date Time Temp Pulse Resp B/P (MAP) Pulse Ox O2 Delivery O2 Flow Rate FiO2 08/11/24 12:39 98.4 55 18 121/67 97 Room Air 08/11/24 07:21 21 08/10/24 21:00 0 Laboratory Tests 08/11/24 04:27 Medications Current Medications Sodium Chloride 1,266 ml @ 422 mls/hr ONCE ONCE IV Last administered on 08/06/24at 10:13; Start 08/06/24 at 10:30; Stop 08/06/24 at 13:29; Status DC Ceftriaxone Sodium 1 gm ONCE ONCE IVPB Last administered on 08/06/24at 10:12; Start 08/06/24 at 10:30; Stop 08/06/24 at 10:31; Status DC Morphine Sulfate 2 mg ONCE ONCE IVP Last administered on 08/06/24at 11:20; Start 08/06/24 at 11:30; Stop 08/06/24 at 11:31; Status DC Ondansetron HCl 4 mg ONCE ONCE IVP Last administered on 08/06/24at 11:20; Start 08/06/24 at 11:30; Stop 08/06/24 at 11:31; Status DC Ceftriaxone Sodium 1 gm ONCE ONCE IVPB; Start 08/06/24 at 12:00; Stop 08/06/24 at 11:53; Status DC Sodium Chloride 1,266 ml @ 422 mls/hr ONCE ONCE IV; Start 08/06/24 at 12:00; Stop 08/06/24 at 11:53; Status DC Piperacillin Sod/ Tazobactam Sod 3.375 gm Q12H IV Last administered on 08/06/24at 13:05; Start 08/06/24 at 12:30; Stop 08/06/24 at 15:14; Status DC Iohexol 75 ml STK-MED ONCE IV; Start 08/06/24 at 12:45; Stop 08/06/24 at 12:46; Status DC Norepinephrine 250 ml @ 0 mls/hr PROTOCOL IV Last administered on 08/07/24at 03:23; Start 08/06/24 at 15:30; Stop 09/05/24 at 15:29 Insulin Human Regular INSULIN SLIDING SCAL... ACHS SQ; Start 08/06/24 at 16:30; Stop 09/05/24 at 16:29 Dextrose 50 ml AD PRN IV Last administered on 08/09/24at 12:05; Start 08/06/24 at 15:30; Stop 09/05/24 at 15:29 Glucagon 1 mg AD PRN IM; Start 08/06/24 at 15:30; Stop 09/05/24 at 15:29 Potassium Chloride 100 ml @ 100 mls/hr AD PRN IV Last administered on 08/11/24at 10:55; Start 08/06/24 at 15:30; Stop 09/05/24 at 15:29 Potassium Chloride 10 meq AD PRN PO; Start 08/06/24 at 15:30; Stop 09/05/24 at 15:29 Potassium Chloride 10 meq AD PRN PO; Start 08/06/24 at 15:30; Stop 09/05/24 at 15:29 Magnesium Sulfate 50 ml @ 0 mls/hr PROTOCOL PRN IV Last administered on 08/07/24at 05:21; Start 08/06/24 at 15:30; Stop 09/05/24 at 15:29 Diphenhydramine HCl 25 mg Q6H PRN IV Last administered on 08/08/24at 21:39; Start 08/06/24 at 15:30; Stop 09/05/24 at 15:29 Acetaminophen 650 mg Q6H PRN PO; Start 08/06/24 at 15:30; Stop 09/05/24 at 15:29 Acetaminophen 650 mg Q4H PRN PO Last administered on 08/08/24at 21:32; Start 08/06/24 at 15:30; Stop 09/05/24 at 15:29 Ondansetron HCl 4 mg Q6H PRN IV; Start 08/06/24 at 15:30; Stop 09/05/24 at 15:29 Zolpidem Tartrate 5 mg HS PRN PO; Start 08/06/24 at 15:30; Stop 09/05/24 at 15:29 Al Hydroxide/Mg Hydroxide 30 ml Q6H PRN PO; Start 08/06/24 at 15:30; Stop 09/05/24 at 15:29 Lactulose 20 gm BID PRN PO; Start 08/06/24 at 15:30; Stop 09/05/24 at 15:29 Nitroglycerin 0.4 mg PROTOCOL PRN SL; Start 08/06/24 at 15:30; Stop 09/05/24 at 15:29 Guaifenesin/ Dextromethorphan 10 ml Q4H PRN PO; Start 08/06/24 at 15:30; Stop 09/05/24 at 15:29 Ipratropium Crosby 0.5 mg [id number] IH Last administered on 08/11/24at 11:15; Start 08/06/24 at 18:00; Stop 09/05/24 at 17:59 Famotidine 20 mg BID PRN IV; Start 08/06/24 at 15:30; Stop 08/06/24 at 15:26; Status DC Albuterol Sulfate 2.5 mg [id number] PRN IH; Start 08/06/24 at 15:30; Stop 09/05/24 at 15:29 Heparin Sodium (Porcine) 5,000 unit BID SQ Last administered on 08/11/24at 12:09; Start 08/06/24 at 21:00; Stop 09/05/24 at 20:59 Acetaminophen 650 mg Q6H PRN PO; Start 08/06/24 at 15:30; Stop 08/06/24 at 15:27; Status DC Ketorolac Tromethamine 15 mg Q8H PRN IV; Start 08/06/24 at 15:30; Stop 08/06/24 at 15:34; Status DC Oxycodone/ Acetaminophen 1 tab Q6H PRN PO; Start 08/06/24 at 15:30; Stop 08/06/24 at 15:27; Status DC Morphine Sulfate 1 mg Q4H PRN IVP Last administered on 08/11/24at 13:07; Start 08/06/24 at 15:30; Stop 08/13/24 at 15:29 Vancomycin HCl 1 each PROTOCOL PRN IV; Start 08/06/24 at 15:30; Stop 08/20/24 at 15:29 Sodium Chloride 1,000 ml @ 100 mls/hr Q10H IV Last administered on 08/06/24at 15:35; Start 08/06/24 at 15:30; Stop 08/07/24 at 14:05; Status DC Ceftriaxone Sodium 2 gm/ Sodium Chloride 100 ml @ 200 mls/hr Q24H IV; Start 08/06/24 at 15:30; Stop 08/06/24 at 15:27; Status DC Hydralazine HCl 10 mg Q6H PRN IV; Start 08/06/24 at 15:30; Stop 09/05/24 at 15:29 Famotidine 20 mg Q24H IV Last administered on 08/10/24at 21:34; Start 08/06/24 at 21:00; Stop 09/05/24 at 20:59 Ceftriaxone Sodium 2 gm Q24H IVPB; Start 08/06/24 at 16:00; Stop 08/06/24 at 15:37; Status DC Ceftriaxone Sodium 2 gm Q24H IVPB; Start 08/07/24 at 16:00; Stop 08/06/24 at 17:54; Status DC Vancomycin HCl 250 ml @ 125 mls/hr ONCE ONCE IV Last administered on 08/06/24at 16:23; Start 08/06/24 at 16:00; Stop 08/06/24 at 17:59; Status DC Vancomycin HCl 750 mg Q12H IVPB Last administered on 08/09/24at 06:36; Start 08/07/24 at 06:00; Stop 08/09/24 at 18:36; Status DC Cefepime HCl 1 gm Q8H IVPB Last administered on 08/11/24at 03:39; Start 08/06/24 at 20:00; Stop 08/16/24 at 19:59 Metronidazole/ Sodium Chloride 500 mg Q8H IV Last administered on 08/11/24at 10:50; Start 08/06/24 at 18:00; Stop 08/16/24 at 17:59 Hydrocortisone Sodium Succinate 50 mg Q6H6 IV Last administered on 08/09/24at 18:37; Start 08/06/24 at 18:00; Stop 08/09/24 at 21:01; Status DC Magnesium Sulfate 4 gm AD IV; Start 08/07/24 at 07:00; Stop 08/08/24 at 12:51; Status DC Furosemide 40 mg ONCE ONCE IV Last administered on 08/07/24at 09:33; Start 08/07/24 at 09:30; Stop 08/07/24 at 09:31; Status DC Hepatitis B Vaccine 0.5 ml ONCE ONCE IM Last administered on 08/07/24at 09:26; Start 08/07/24 at 09:30; Stop 08/07/24 at 09:31; Status DC Pneumococcal Polyvalent Vaccine 0.5 ml ONCE ONCE IM Last administered on 08/07/24at 09:30; Start 08/07/24 at 09:30; Stop 08/07/24 at 09:31; Status DC Meningococcal Polysaccharide Vacc 1 each ONCE IM; Start 08/07/24 at 09:30; Stop 08/07/24 at 09:16; Status DC Pharmacy Profile Note 1 each AD MISC; Start 08/07/24 at 13:30; Stop 08/08/24 at 12:51; Status DC Leptospermum Honey 1 appl DAILY TP Last administered on 08/11/24at 10:50; Start 08/08/24 at 11:30; Stop 09/07/24 at 11:29 Folic Acid 1 mg DAILY PO Last administered on 08/11/24at 10:49; Start 08/09/24 at 09:00; Stop 09/08/24 at 08:59 Vitamin B Complex 1,000 mcg AM IM Last administered on 08/11/24at 10:50; Start 08/10/24 at 14:00; Stop 09/09/24 at 13:59 Pharmacy Profile Note 1 each ONCE MISC; Start 08/09/24 at 14:00; Stop 08/09/24 at 14:31; Status DC Micafungin Sodium 100 ml @ 100 mls/hr Q24H IV Last administered on 08/10/24at 14:04; Start 08/09/24 at 15:00; Stop 09/08/24 at 14:59 Wound Care/ Dressing Products APPLY DIRECTED BID TP Last administered on 08/11/24at 10:50; Start 08/09/24 at 21:00; Stop 09/08/24 at 20:59 Bacitracin Apply to right fore... DAILY TP Last administered on 08/11/24at 10:50; Start 5/6/25 at 09:00; Stop 09/09/24 at 08:59 Vancomycin HCl 750 mg Q12H9 IVPB; Start 08/09/24 at 21:00; Stop 08/09/24 at 18:54; Status DC Vancomycin HCl 750 mg Q12H9 IVPB Last administered on 08/09/24at 23:18; Start 08/09/24 at 21:00; Stop 08/10/24 at 06:15; Status DC Vancomycin HCl 750 mg Q12H IVPB; Start 08/10/24 at 11:30; Stop 08/10/24 at 11:27; Status DC Vancomycin HCl 750 mg Q24H IVPB Last administered on 08/11/24at 13:06; Start 08/11/24 at 11:30; Stop 08/21/24 at 11:29 Potassium Chloride 40 meq ONCE ONCE PO; Start 08/11/24 at 12:30; Stop 08/11/24 at 12:31; Status DC Potassium Chloride 100 ml @ 50 mls/hr ONCE ONCE IV; Start 08/11/24 at 12:30; Stop 08/11/24 at 14:29; Status DC BEAR MATAMOROS MD August 11, 2024 17:44
--- NOTE | 2024-08-11 18:53 | PN ---
[facility] PROGRESS NOTE Date Patient Seen: August 11, 2024 Time of Visit: 18:44 Supervising Physician: [Dr. Tate] Primary Care Physician: Dr. John Hopson Outpatient Specialists: [ ] Inpatient Consults: [ ] PROBLEM LIST: Acute hypoxemic respiratory failure POA. Rehana parapsilosis bacteremia Enterococcus faecalis and Rehana albicans UTI Acute sepsis and shock from intra-abdominal source POA. Infarcted spleen noted on CT abdomen and pelvis, POA. Ischemic bowel noted on CT abdomen and pelvis, POA. Chronic anemia POA Hypothyroidism POA Hyperlipidemia POA Hypertension POA GERD POA Severe protein calorie malnutrition POA Cachexia POA Mulitple wounds POA Debility and frailty POA Depression POA Dementia POA. History Of esophageal stricture POA Recent suspected bowel perforation, ruled out s/p exploratory laparotomy with lysis of adhesions and placement of a gastrostomy tube 22 [place] on 07/24/2024 INTERVAL HISTORY: DOS 08/10/24-patient is awake alert and oriented times person and place. Denies NS respiratory complaints denies any chest pain palpitations. She has been hemodynamically stable saturating 97% on room air. She has been in a speech eval this morning. On CBC WBCs trended down 15.7 today H&H 6.9/21.5 pending 1 unit of PRBCs to be transfused platelet count 759. Per credit risk specialist hold anticoagulant due to high-risk secondary to acute anemia. AST 88, alkaline phosphatase 196 total protein 4.7 albumin of 1.3. Disposition per primary. Continues on vancomycin and cefepime. 08/11 Patient is evaluated at bedside. She remains weak and bedridden. Hemoglobin is much improved after administration of PRBC. WBC remain elevated but downtrending. Platelets remain elevated as well, appreciate hematology recommendation. Potassium is decreased, replaced per protocol. Continues on IV antibiotics per ID. Echocardiogram shows no vegetation. No surgical intervention per General surgery. Continues with local wound care per Wound Care team. Disposition to [facility] once medically cleared. REVIEW OF SYSTEMS: 12 point ROS reviewed with patient. Pertinent positives mentioned above. Otherwise negative. PHYSICAL EXAM: GENERAL: Awake, alert and oriented x2 HEENT: EOMI, Sclera non icteric, moist mucosa NECK: Supple, no JVD, trachea midline LUNGS: Clear breath sounds bilaterally. No wheezes HEART: Regular rate and rhythm. Normal S1 and S2, without murmurs ABD: Abdomen soft, nontender. Bowel sounds present EXT: No clubbing cyanosis or edema NEURO: Able to follow commands Vital Signs (last 8hr) Date Time Temp Pulse Resp B/P (MAP) Pulse Ox O2 Delivery O2 Flow Rate FiO2 08/11/24 12:39 98.4 55 18 121/67 97 Room Air 08/11/24 11:15 58 18 LABS: Hematology Labs: Test 08/11/24 04:27 Range/Units White Blood Count 15.3 H 4.8-10.8 K/uL Red Blood Count 3.23 L 4.00-5.50 MIL/uL Hemoglobin 9.9 L 12.0-16.0 g/dL Hematocrit 29.8 L 36-48 % Mean Corpuscular Volume 92.3 79-99 fL Mean Corpuscular Hemoglobin 30.7 27.0-33.0 pg Mean Corpuscular Hemoglobin Concent 33.2 32.0-36.0 g/dL Red Cell Distribution Width 17.4 H 11.0-15.5 % Platelet Count 819 *H 130-400 K/uL Mean Platelet Volume 9.7 7.5-10.5 fL Immature Granulocyte % (Auto) 1.4 H 0-1 % Neutrophils (%) (Auto) 86.2 H 40.0-77.0 % Lymphocytes (%) (Auto) 4.1 L 21.0-51.0 % Monocytes (%) (Auto) 8.0 3.0-13.0 % Eosinophils (%) (Auto) 0.2 0.0-8.0 % Basophils (%) (Auto) 0.1 0.0-5.0 % Neutrophils # (Auto) 13.2 H 1.8-7.7 K/uL Lymphocytes # (Auto) 0.6 L 1.0-4.8 K/uL Monocytes # (Auto) 1.2 H 0.1-1.0 K/uL Eosinophils # (Auto) 0.03 0.00-0.70 K/uL Basophils # (Auto) 0.02 0.00-0.20 K/uL Absolute Immature Granulocyte (auto 0.22 0-1 K/uL Nucleated Red Blood Cells 0.1 0.0-0.19 % Chemistry Labs: Test 08/11/24 16:16 08/11/24 04:27 Range/Units Whole Blood Glucose 107 70-110 MG/DL Sodium Level 140 136-145 mmol/L Potassium Level 2.5 *L 3.5-5.1 mmol/L Chloride Level 108 101-111 mmol/L Carbon Dioxide Level 23 21-32 mmol/L Blood Urea Nitrogen 23 H 7-18 mg/dL Creatinine 0.5 0.5-1.0 mg/dL Glomerular Filtration Rate Calc 103 >90 mL/min Random Glucose 123 H 70-105 mg/dL Total Calcium 7.9 L 8.5-10.1 mg/dL Magnesium Level 2.40 1.80-2.40 mg/dL Total Bilirubin 0.2 0.2-1.0 mg/dL Aspartate Amino Transf (AST/SGOT) 83 H 10-37 U/L Alanine Aminotransferase (ALT/SGPT) 47 12-78 U/L Alkaline Phosphatase 211 H 50-136 U/L Total Protein 5.0 L 6.0-8.3 g/dL Albumin 1.4 L 3.5-5.0 g/dL DIAGNOSTICS / RADIOLOGY RESULTS: [ ] PLAN Follow Hematology recommendations. Transfuse 1 unit PRBCs for hemoglobin less than seven Disposition to SNF per primary team. Continue antibiotics with cefepime Flagyl and vanco per ID NEURO: Minimize central acting medications as possible. Maintain fall precautions, adequate lighting during the day PULMONARY: Supplemental 02 as needed. Maintain aspiration precautions at all times CARDIOVASCULAR: Follow hemodynamics. Vital signs per facility protocol GI & NUTRITION: Continue with nutritional support. Continue stool softeners and laxatives as needed. KIDNEYS & ELECTROLYTES: Strict monitoring of intake, output and overall fluid balance. Avoid nephrotoxic medications to the extent possible. Medications to be dosed according to renal function. Monitor electrolytes and replace as needed ENDOCRINE: Maintain blood glucose between 100-180 at all times. Hypoglycemia protocol in place INFECTIOUS DISEASE: Trend temperature, WBC and procalcitonin level Follow cultures, deescalate antibiotics as soon as possible. Panculture if new onset fever ONCOLOGY/HEMATOLOGY/COAGULATION: Monitor for s/s of bleeding Monitor hemoglobin, coagulation studies as needed SKIN: Pressure ulcer prevention per facility protocol Specialty mattress ORTHO/REHAB: Continue PT/OT Prophylaxis: Continue GI and DVT prophylaxis Code Status: Full Resuscitation Disposition: TBD Other: I personally spent [50] minutes of critical care time in treatment of this patient. This includes patient management, time at bedside, time reviewing tests, labs, appropriate images and studies, documentation, and patient care coordination. This time excludes separately billable procedures. RUMA YOON August 11, 2024 18:53
[2024-08-11] MEDS ORDERED: LIDOCAINE 4% ADH..PATCH TP PRN (19:00)
[2024-08-11] MEDS: ondanSETRON 4MG INJ IV PRN (21:51)
[2024-08-12] VITALS (12 sets, daily range): BP systolic 111–129; BP diastolic 65–78; PULSE 54–92; RESP 16–19; TEMP 97.9–99; O2SAT 91–98
[2024-08-12] MEDS: ketOROlac 15MG/ML VIAL (15MG/ML) IV PRN (02:18)
[2024-08-12 04:43] LABS: HEMATOCRIT 26.4 % (36-48); MEAN CORPUSCULAR HEMOGLOBIN 30.7 pg (27.0-33.0); MEAN CORPUSCULAR VOLUME 93.3 fL (79-99); NUCLEATED RED BLOOD CELLS 0.1 % (0.0-0.19); RED BLOOD CELL COUNT(AUTO) 2.83 MIL/uL (4.00-5.50); RED CELL DISTRIBUTION WIDTH 17.4 % (11.0-15.5); WHITE BLOOD COUNT (AUTO) 13.7 K/uL (4.8-10.8)
[2024-08-12 05:13] LABS: ALBUMIN 1.1 g/dL (3.5-5.0); BILIRUBIN,TOTAL 0.2 mg/dL (0.2-1.0); CREATININE 0.4 mg/dL (0.5-1.0); MAGNESIUM 1.5 mg/dL (1.80-2.40); TOTAL PROTEIN, SERUM 4.1 g/dL (6.0-8.3)
[2024-08-12] MEDS: PoTASSium chl 10% ELIXIR 20MEQ 20 MEQ/15 ML UDCUP PO PRN (08:10)
--- NOTE | 2024-08-12 11:08 | PN ---
[facility] PROGRESS NOTE Date of Service: August 12, 2024 Time of Service: 11:05 SUBJECTIVE: [ 08/06/24 [Patient is 69 years old female with a past medical history of chronic anemia, GERD, hyperlipidemia, dementia, esophageal structure/stenosis, dysphagia s/p PEG tube placement. Crohn's disease, IBS, depression, hypertension, hypothyroidism, hyperlipidemia, GERD, chronic constipation, takotsubo cardiomyopathy, brain injury, gastric bypass 1991, neck surgery x2, bilateral knee surgery, carpal tunnel release, EGD with stent placement, who came to emergency department via EMS from [facility] for respiratory distress and abdominal pain. Per EMS patient was placed on oxygen and was having problems breathing. Patient is limited on verbalization. Patient was recently hospitalized to [facility] for GI bleed secondary to intestinal puncture. On 07/24/2024 exploratory lap was performed were replacement of G-tube was done with repair of bowel perforation by Dr Mccabe. Most recent 2D echo 07/10/2024 showed 60 to 65% stage I diastolic dysfunction. Most recent vital signs temperature 97.9 pulse 121 respiration 19 blood pressure 93/60 . Patient was placed on Levophed. Patient is satting 95% on 4 L nasal cannula. WBC 30.3 hemoglobin 8.2 hematocrit 24 platelets 820 UA positive for leukocytosis. Sodium 132 potassium 5.0 chloride 100 carbon dioxide 29 BUN 19 creatinine 0.9 GFR 108 lactic 1.9 calcium 8.1 CK 12 troponin 9 , BNP 951 procalcitonin negative. Chest x-ray showed bilateral pulmonary infiltrates suggestive of pulmonary vascular congestion, possible superimposed pneumonitis. CT abdomen/pelvis as per radiologist showed marked spleen and ischemic bowel. Surgeon Dr. Armendariz was notified regarding above finding and was consulted. Family members/ at the bedside was notified regards admission in the further plan. Patient will be admitted under hospitalist care for further evaluation/recommendation. Patient will be sent to ICU 08/07/24 patient was seen by nurse practitioner and physician during rounding in room 210. Patient continues to be on Levophed map 90. Patient was seen by surgeon and per her recommendation ascites, ileus, pleural effusion, and a splenic infarct of unknown etiology on Eliquis. No surgical intervention at this moment is recommended. In the meantime placed G-tube was straight drainage NPO for now strict I and loss. Etiology of infarction is unclear. Patient was also evaluated by the canine service instructor trainer no new recommendation at this moment. Continue current regimen of medications. Patient will receive pneumococcal vaccine, Hib, meningococcal vaccine as well. at the bedside was informed regards to further plan and recommendations. Patient will also receive 2 g of magnesium. One dose of furosemide IV push will be given to two bilateral lower extremities edema and bilateral upper extremities edema plus four. We will hold fluids for now. WBC 30.3. We will consult ID for antibiotic recommendations. 08/09 patient is seen and examined at bedside, case discussed with the RN, no acute events overnight, patient downgraded to the PCU. During my visit the patient is awake, following commands, on supplemental oxygen via nasal cannula 2 L, saturating 98%, hemodynamically stable, she is getting broad-spectrum IV antibiotics. is at bedside. Updated. Patient continues to be on Levophed map 90. Patient was seen by surgeon and per her recommendation ascites, ileus, pleural effusion, and a splenic infarct of unknown etiology on Eliquis. No surgical intervention at this moment is recommended. Etiology of infarction is unclear. Patient was also evaluated by the canine service instructor trainer no new recommendation at this moment. Patient noted to have thrombocytosis, hematuria consultation requested. Patient denies nausea, no vomiting, no abdominal discomfort, she feels hungry, we will resume diet and advanced slowly. We will continue to monitor. ID consultation requested as well, we will follow input and recommendation. 08/10 patient is seen and examined at bedside, case discussed with the RN, no acute events overnight, during my visit patient comfortably in bed, following commands, getting broad-spectrum IV antibiotics, getting nutritional support via PEG tube. is at bedside during my visit, advanced directive confirmed, patient is DNR/DNI, patient with a wrist band in place. Leukocytosis improving, today 15.7, hemoglobin dropped to 6.9, patient to receive 1 unit of PRBC today, we will follow CBC post transfusion. Platelet count improving, today 759. Patient evaluated by pile operator, thrombocytosis likely reactive/inflammatory, if no improvement patient will need bone marrow biopsy. at Bedside, uptake 08/11 Patient seen and examined, downgraded to medical floor, discussed with RN, resistance noted while using the PEG tube, patient is alert, following commands, not in the room during my visit. 08/12 patient is seen and examined at bedside, case discussed with the RN, PEG tube is working fine, currently patient getting nutritional support via the PEG tube at the time of my visit, tolerating well, getting potassium and magnesium supplementation IV. Potassium level today 2.0, magnesium 1.5. is at bedside during my visit, updated. Patient has remained hemodynamically stable, BP 129/65, she is currently saturating normal on room air. REVIEW OF SYSTEMS CONSTITUTIONAL: Denies fevers, chills, or night sweats. No unintentional weight loss reported. NEUROLOGICAL: Denies headache, amaurosis fugax, motor weakness, sensory deficit, vertigo/spinning sensation, gait abnormalities, or tremors. ENT: No hearing loss, otalgia, otorrhea, rhinitis, rhinorrhea, hoarseness, or sore throat. CARDIOVASCULAR: Denies any exertional angina, dyspnea on exertion, orthopnea, paroxysmal nocturnal dyspnea, palpitations, life-threatening arrhythmias, claudication. PULMONARY: Denies any , cough, phlegm/sputum, hemoptysis, pleuritic chest pain. Patient denies any shortness of breaths SLEEP: Denies morning headaches, daytime somnolence or napping. Denies difficulty falling asleep, staying asleep, waking from sleep. Denies knowledge of snoring. GASTROINTESTINAL: Denies any type of dysphagia to either liquids or solids. Denies nausea, vomiting, pyrosis, early satiety, diarrhea, constipation, or changes in stool consistency or caliber. Denies coffee-ground emesis, hematemesis, hematochezia, or melanotic stools. Patient complaining of abdominal pain GENITOURINARY: Denies frequency, urgency, nocturia, hematuria or incontinence (Storage/Irritative symptoms.) Low urinary stream, straining to void, urinary intermittency or hesitancy, splitting of the voiding stream, terminal dribbling. ENDOCRINOLOGIC: Denies polyuria, polydipsia, polyphagia or heat/cold intolerances. HEMATOLOGIC: Denies thrombophilia/previous clots, or coagulopathy/bleeding disorders. ONCOLOGIC: Denies personal history of malignancy. DERMATOLOGIC: Denies rashes or pruritus. PSYCHIATRIC: Denies any suicidal or homicidal ideation. Denies hallucinations. PHYSICAL EXAM GENERAL APPEARANCE: The patient is awake, alert, and disoriented in no acute cardiopulmonary distress. NEUROLOGICAL: Patient bed-bound. Patient contracted HEENT: Face is symmetric. Pupils are equal and reactive. Extraocular movements are intact. NECK: Supple. No JVD. No thyromegaly. No submental, submandibular, pre- /postauricular, occipital or supraclavicular lymphadenopathy. CHEST: Normal chest expansion. No Telemetry. LUNGS: Absence of any rales, rhonchi or any wheezing. CARDIOVASCULAR: Regular. S1 and S2 normal. No appreciable rubs, murmurs or gallops. ABDOMEN: Soft, , and nondistended. There is no rebound, voluntary guarding, or rigidity. Tender abdomen : Deferred. No Manuel. EXTREMITIES: Non-edematous and not cyanotic. No clubbing. Good capillary refill. SKIN: Multiple skin tears and bilateral lower extremities wounds Vital Signs (last 8hr) Date Time Temp Pulse Resp B/P (MAP) Pulse Ox O2 Delivery O2 Flow Rate FiO2 08/12/24 07:49 98.4 79 17 111/75 96 Room Air 08/12/24 06:56 75 18 N/A Room Air 21 08/12/24 06:53 75 17 08/12/24 04:00 98.2 67 16 129/65 96 Room Air LABS: Laboratory: Test 08/12/24 10:31 08/12/24 04:11 08/11/24 11:10 08/11/24 04:27 Range/Units Whole Blood Glucose 91 70-110 MG/DL White Blood Count 13.7 H 4.8-10.8 K/uL Red Blood Count 2.83 L 4.00-5.50 MIL/uL Hemoglobin 8.7 L 12.0-16.0 g/dL Hematocrit 26.4 L 36-48 % Mean Corpuscular Volume 93.3 79-99 fL Mean Corpuscular Hemoglobin 30.7 27.0-33.0 pg Mean Corpuscular Hemoglobin Concent 33.0 32.0-36.0 g/dL Red Cell Distribution Width 17.4 H 11.0-15.5 % Platelet Count 637 H 130-400 K/uL Mean Platelet Volume 9.9 7.5-10.5 fL Nucleated Red Blood Cells 0.1 0.0-0.19 % Sodium Level 142 136-145 mmol/L Potassium Level 2.0 *L 3.5-5.1 mmol/L Chloride Level 109 101-111 mmol/L Carbon Dioxide Level 27 21-32 mmol/L Blood Urea Nitrogen 17 7-18 mg/dL Creatinine 0.4 L 0.5-1.0 mg/dL Glomerular Filtration Rate Calc 108 >90 mL/min Random Glucose 115 H 70-105 mg/dL Total Calcium 7.4 L 8.5-10.1 mg/dL Magnesium Level 1.50 L 1.80-2.40 mg/dL Total Bilirubin 0.2 0.2-1.0 mg/dL Aspartate Amino Transf (AST/SGOT) 45 H 10-37 U/L Alanine Aminotransferase (ALT/SGPT) 30 # 12-78 U/L Alkaline Phosphatase 146 #H 50-136 U/L Total Protein 4.1 L 6.0-8.3 g/dL Albumin 1.1 #L 3.5-5.0 g/dL Vancomycin Level Trough 18.7 # 10.0-20.0 UG/ML Immature Granulocyte % (Auto) 1.4 H 0-1 % Neutrophils (%) (Auto) 86.2 H 40.0-77.0 % Lymphocytes (%) (Auto) 4.1 L 21.0-51.0 % Monocytes (%) (Auto) 8.0 3.0-13.0 % Eosinophils (%) (Auto) 0.2 0.0-8.0 % Basophils (%) (Auto) 0.1 0.0-5.0 % Neutrophils # (Auto) 13.2 H 1.8-7.7 K/uL Lymphocytes # (Auto) 0.6 L 1.0-4.8 K/uL Monocytes # (Auto) 1.2 H 0.1-1.0 K/uL Eosinophils # (Auto) 0.03 0.00-0.70 K/uL Basophils # (Auto) 0.02 0.00-0.20 K/uL Absolute Immature Granulocyte (auto 0.22 0-1 K/uL Current Medications Medications (Trade) Dose Ordered Sig/Jennifer Route PRN Reason Start Time Stop Time Status Last Admin Dose Admin Acetaminophen (TYLenol 325MG TAB) 650 mg Q4H PRN PO MILD PAIN (1-3) 08/06/24 15:30 09/05/24 15:29 08/08/24 21:32 650 MG Acetaminophen (TYLenol 325MG TAB) 650 mg Q6H PRN PO MILD PAIN (1-3) 08/06/24 15:30 08/06/24 15:27 DC Acetaminophen (TYLenol 325MG TAB) 650 mg Q6H PRN PO TEMPERATURE GREATER THAN 101.5 08/06/24 15:30 09/05/24 15:29 Al Hydroxide/Mg Hydroxide (MAALox PLUS 30ML) 30 ml Q6H PRN PO INDIGESTION 08/06/24 15:30 09/05/24 15:29 Albuterol Sulfate (Proventil 0.083% 2.5mg/3ml) 2.5 mg [id number] PRN IH RESPIRATORY SYMPTOMS 08/06/24 15:30 09/05/24 15:29 Bacitracin (Bacitracin 28.4gm) Apply to right fore... DAILY TP 08/10/24 09:00 09/09/24 08:59 08/12/24 08:11 1 GM Cefepime HCl (MAXipime 1 GM vial) 1 gm Q8H IVPB 08/06/24 20:00 08/16/24 19:59 08/12/24 04:32 1 GM Ceftriaxone Sodium 2 gm/ Sodium Chloride 100 ml @ 200 mls/hr Q24H IV 08/06/24 15:30 08/06/24 15:27 DC Ceftriaxone Sodium (Rocephin 2gm Inj) 2 gm Q24H IVPB 08/06/24 16:00 08/06/24 15:37 DC Ceftriaxone Sodium (Rocephin 2gm Inj) 2 gm Q24H IVPB 08/07/24 16:00 08/06/24 17:54 DC Dextrose (D50w) 50 ml AD PRN IV HYPOGLYCEMIA PROTOCOL 08/06/24 15:30 09/05/24 15:29 08/09/24 12:05 50 ML Diphenhydramine HCl (BENAdryl INJ) 25 mg Q6H PRN IV SEVERE ITCHING/RASH 08/06/24 15:30 09/05/24 15:29 08/08/24 21:39 25 MG Famotidine (Pepcid 20mg Vial) 20 mg BID PRN IV NAUSEA/VOMITING 08/06/24 15:30 08/06/24 15:26 DC Famotidine (Pepcid 20mg Vial) 20 mg Q24H IV 08/06/24 21:00 09/05/24 20:59 08/11/24 21:38 20 MG Folic Acid (FOLic ACID 1 MG TABLET) 1 mg DAILY PO 08/09/24 09:00 09/08/24 08:59 08/12/24 08:10 1 MG Glucagon (Glucagon 1mg Kit) 1 mg AD PRN IM HYPOGLYCEMIA PROTOCOL 08/06/24 15:30 09/05/24 15:29 Guaifenesin/ Dextromethorphan (RobiTUSSin DM 200/20MG 10ML) 10 ml Q4H PRN PO COUGH 08/06/24 15:30 09/05/24 15:29 Heparin Sodium (Porcine) (HEParin 5,000 UNIT VIAL) 5,000 unit BID SQ 08/06/24 21:00 09/05/24 20:59 08/12/24 08:11 5,000 UNIT Hydralazine HCl (APRESOLine 20MG INJ) 10 mg Q6H PRN IV For:SBP above 160;DBP above 90 08/06/24 15:30 09/05/24 15:29 Hydrocortisone Sodium Succinate (Solu-corTEF 100MG) 50 mg Q6H6 IV 08/06/24 18:00 08/09/24 21:01 DC 08/09/24 18:37 50 MG Insulin Human Regular (humuLIN R 100 UNIT/ML 3ML) INSULIN SLIDING SCAL... ACHS SQ 08/06/24 16:30 09/05/24 16:29 Ipratropium [place]aks (AtrovENT UD) 0.5 mg [id number] IH 08/06/24 18:00 09/05/24 17:59 08/12/24 06:53 0.5 MG Ketorolac Tromethamine (toRADol) 15 mg Q6H6 PRN IV MODERATE PAIN (4-6) 08/11/24 19:00 08/16/24 18:59 08/12/24 02:18 15 MG Ketorolac Tromethamine (toRADol) 15 mg Q8H PRN IV MODERATE PAIN (4-6) 08/06/24 15:30 08/06/24 15:34 DC Lactulose (Constulose 20gm/ 30ml Udcup) 20 gm BID PRN PO CONSTIPATION 08/06/24 15:30 09/05/24 15:29 Leptospermum Honey (Medihoney) 1 appl DAILY TP 08/08/24 11:30 09/07/24 11:29 08/12/24 08:11 1 APPL Lidocaine (Lidocaine Patch 4%) 1 each DAILY PRN TP pain 08/11/24 19:00 09/10/24 18:59 Magnesium Sulfate 50 ml @ 0 mls/hr PROTOCOL PRN IV other 08/06/24 15:30 09/05/24 15:29 08/12/24 05:40 20 MLS/HR Magnesium Sulfate (Magnesium 4gm Premix 100ml) 4 gm AD IV 08/07/24 07:00 08/08/24 12:51 DC Meningococcal Polysaccharide Vacc (Menveo K-E-C-w-135-Dip Vial) 1 each ONCE IM 08/07/24 09:30 08/07/24 09:16 DC Metronidazole/ Sodium Chloride (flaGYL) 500 mg Q8H IV 08/06/24 18:00 08/16/24 17:59 08/12/24 02:17 500 MG Micafungin Sodium 100 ml @ 100 mls/hr Q24H IV 08/09/24 15:00 09/08/24 14:59 08/11/24 18:27 100 MLS/HR Morphine Sulfate (morPHINE 2MG SYG) 1 mg Q4H PRN IVP SEVERE PAIN (7-10) 08/06/24 15:30 08/11/24 18:29 DC 08/11/24 13:07 1 MG Nitroglycerin (Nitrostat) 0.4 mg PROTOCOL PRN SL CHEST PAIN 08/06/24 15:30 09/05/24 15:29 Norepinephrine 250 ml @ 0 mls/hr PROTOCOL IV 08/06/24 15:30 09/05/24 15:29 08/07/24 03:23 14 MLS/HR Ondansetron HCl (zoFRAN 4MG INJ) 4 mg Q6H PRN IV NAUSEA/VOMITING 08/06/24 15:30 09/05/24 15:29 08/11/24 21:51 4 MG Oxycodone/ Acetaminophen (perCOCET) 1 tab Q6H PRN PO SEVERE PAIN (7-10) 08/06/24 15:30 08/06/24 15:27 DC Pharmacy Profile Note (Lace Assessment) 1 each AD MISC 08/07/24 13:30 08/08/24 12:51 DC Pharmacy Profile Note (Pharmacy Communication) 1 each ONCE MISC 08/09/24 14:00 08/09/24 14:31 DC Piperacillin Sod/ Tazobactam Sod (Zosyn 3.375gm+NS 50ml) 3.375 gm Q12H IV 08/06/24 12:30 08/06/24 15:14 DC 08/06/24 13:05 3.375 GM Potassium Chloride 100 ml @ 100 mls/hr AD PRN IV POTASSIUM PROTOCOL 08/06/24 15:30 09/05/24 15:29 08/12/24 08:10 100 MLS/HR Potassium Chloride (K-Dur 10meq Sr Tab) 10 meq AD PRN PO POTASSIUM PROTOCOL 08/06/24 15:30 09/05/24 15:29 Potassium Chloride (KCl 10% Elixir 20meq/15ml) 10 meq AD PRN PO POTASSIUM PROTOCOL 08/06/24 15:30 09/05/24 15:29 08/12/24 08:10 10 MEQ Sodium Chloride 1,000 ml @ 100 mls/hr Q10H IV 08/06/24 15:30 08/07/24 14:05 DC 08/06/24 15:35 100 MLS/HR Vancomycin HCl (Vancomycin 750mg) 750 mg Q12H IVPB 08/07/24 06:00 08/09/24 18:36 DC 08/09/24 06:36 750 MG Vancomycin HCl (Vancomycin 750mg) 750 mg Q12H IVPB 08/10/24 11:30 08/10/24 11:27 DC Vancomycin HCl (Vancomycin 750mg) 750 mg Q12H9 IVPB 08/09/24 21:00 08/09/24 18:54 DC Vancomycin HCl (Vancomycin 750mg) 750 mg Q12H9 IVPB 08/09/24 21:00 08/10/24 06:15 DC 08/09/24 23:18 750 MG Vancomycin HCl (Vancomycin 750mg) 750 mg Q24H IVPB 08/11/24 11:30 08/21/24 11:29 08/11/24 13:06 750 MG Vancomycin HCl (Vancomycin Protocol) 1 each PROTOCOL PRN IV VANCOMYCIN PROTOCOL 08/06/24 15:30 08/20/24 15:29 Vitamin B Complex (Vitamin B-12) 1,000 mcg AM IM 08/10/24 14:00 09/09/24 13:59 08/12/24 08:09 1,000 MCG Wound Care/ Dressing Products (Venelex Ointment) APPLY DIRECTED BID TP 08/09/24 21:00 09/08/24 20:59 08/12/24 08:11 1 GM Zolpidem Tartrate (AmbIEN) 5 mg HS PRN PO INSOMNIA 08/06/24 15:30 09/05/24 15:29 DIAGNOSTICS / RADIOLOGY: [ ] ASSESSMENT: [ Acute sepsis secondary to ischemic bowel, UTI POA Acute hypoxic respiratory failure POA Infarcted spleen per CT abdomen/pelvis POA Ischemic bowel per CT abdomen/pelvis POA Hypotension requiring Levophed drip POA Acute complicated cystitis POA Acute on chronic diastolic congestive heart failure 2D echo 60 to 65 % stage I dysfunction 07/10/2024 Esophageal structure/stenosis 07/24/2024 exploratory lap repair of G-tube repair of perforation Crohn's disease POA IBS POA Thrombocytopenia POA Depression POA Hypertension POA Hypothyroidism POA Chronic constipation POA Takotsubo cardiomyopathy POA Debility and frailty POA Chronic anemia POA GERD, POA Hyperlipidemia POA Multiple skin tears on arms with bilateral lower extremities wounds POA Dementia POA History of Recent GI bleedon previous admission due secondary to intestinal puncture History of brain injury History of EGD with stent placement 07/14/2024 History of carpal tunnel release History of neck surgery x2 History of bilateral knee surgery History of EGD with stent placement 07/14/2024] Possible malfunction PEG tube History of DVT and bilateral PE Status post IVC filter placement in the past History of Crohn's disease Dysphagia status post PEG tube placement PLAN: Patient downgraded to medical floor. Per discussed with RN, peg tube is working fine, patient getting nutritional support via PEG tube, currently at goal. Continue the patient on broad-spectrum IV antibiotics, continue to monitor WBC in a.m. ID input noted and appreciated, continue with cefepime, vancomycin and micafungin. Continue to monitor CBC transfuse as needed. Hematology input noted and appreciated, continue to hold anticoagulation with the Eliquis for now. Patient evaluated by speech therapist, agreed to initiate on ET, awaiting further recommendations by GI. We will follow up. Case management consulted to start discharge process back to shelter facility Hospital bedside, updated. NEURO: Minimize central acting medications as possible. Fall Precautions. Well lighted room through the day and minimize interruptions through the night to prevent acute delirium. PULMONARY: Supplemental 02 as needed BiPAP as necessary, for respiratory distress Titrate Fio2 to keep Spo2 > or = 90% DuoNebs and CPT as needed IS hourly while awake for pulmonary hygiene prn Out of bed to chair as tolerated Maintain aspiration precautions at all times CARDIOVASCULAR: Follow hemodynamics. Vital signs per facility protocol GI & NUTRITION: Continue nutritional support Aspirations precautions Prokinetic agents and laxatives as needed KIDNEYS & ELECTROLYTES: Strict monitoring of intake and output Daily weights Avoid nephrotoxic agents Monitor electrolytes and replace as needed Goal urine output of 30mL/hr or 0.5mL/kg/hr Medications to be dosed according to renal function. Avoid contrast if possible ENDOCRINE: Maintain blood glucose between 100-180 at all times. Insulin sliding scale for blood glucose management Hypoglycemia and hyperglycemia protocol in place INFECTIOUS DISEASE: Trend temperature, WBC and procalcitonin level Follow cultures, deescalate antibiotics as soon as possible. Panculture if new onset fever HEMATOLOGY & COAGULATION: Monitor H&H. Keep Hgb > 7 Transfuse 1 unit of PRBC for Hgb < 7 Transfuse 1 pack of platelets of platelets < 20, 000 Watch for any signs and symptoms of bleeding SKIN: Pressure ulcer prevention per facility protocol Specialty mattress as needed ORTHO/REHAB Continue PT/OT PRN: MEDICATIONS Tylenol 650 mg po every 4 hrs for fever zofran 4 mg IV every 6 hrs for n/v Hydralazine 5 mg IV every 4 hrs systolic pressure > 160 bowel regiment: lactulose 20 gm PO BID PRN constipation Supportive measures: Continue GI and DVT prophylaxis Disposition: Pending improvement in clinical condition All questions answered time spent: > 35 min LELE GALEANO MD August 12, 2024 11:08
--- NOTE | 2024-08-12 11:26 | CONS ---
GASTROENTEROLOGY CONSULTATION NOTE Date of Consultation: August 12, 2024 Time of Consultation: 11:25 History of Present Illness: This is a 69yo female who is known to services. She has g tube. On previous admission she had esophageal tear which healed per upper GI series results. Review of Systems: CONSTITUTIONAL: No malaise or change in sensation of wellbeing. ENMT: No rhinorrhea, otorrhea, sinus pain, ear ache. CARDIOVASCULAR: No angina, palpitations, orthopnea or paroxysmal dyspnea. RESPIRATORY: No SOB. GASTROINTESTINAL: No abdominal pain, nausea, vomiting, diarrhea, hematemesis, melena or change in the patient's habitual bowel movements consistency/number. GENITOURINARY: No dysuria, hematuria or change in bladder continence. MUSCULOSKELETAL: No new muscle pain or decrease in muscular strength. No new joint swelling, redness or tenderness. SKIN: No new rash. Past Medical History: [ ] Past Surgical History: [ ] Past Social History: [ ] Family History: [ ] Coded Allergies: No Known Allergies (Unverified Allergy, Unknown, 05/18/24) Physical Exam: GEN: Awake, alert, oriented in person, time and place, and in no acute distress. HEENT: No sinus tenderness. Tympanic membranes were not examined. No rhinorrhea. Oral pharyngeal mucosa is pink, moist and within normal limits. Neck is supple with no cervical lymphadenopathy, thyromegaly or JVD. CHEST: Inspection, palpation and percussion of the chest were unremarkable. Lung auscultation revealed normal breath sounds bilaterally. CARDIAC: PMI is within normal limits. Heart sounds are regular. Normal S1, S2. No gallop or murmur. ABD: Soft, non-tender and not distended. No peritoneal signs on palpation. No organomegaly. Normal bowel sounds. EXT: No cyanosis or clubbing. No edema. SKIN: Intact. No rashes. JOINTS: No evidence of synovitis or acute arthritis. NEURO: Alert and oriented to name, place and person. Cranial nerve examination is unremarkable. No focal motor deficits. Normal speech. Gait is normal. Strength is normal. Vital Sign (Last 24 Hours) 08/11/24 08/12/24 08/12/24 20:00 06:56 07:49 Temp 98.4 Pulse 79 Resp 17 B/P (MAP) 111/75 Pulse Ox 96 O2 Delivery Room Air O2 Flow Rate 2 FiO2 21 Intake & Output (last 24hrs) 08/11/24 08/11/24 08/12/24 15:00 23:00 07:00 Intake Total 529.0 ml Output Total 300 ml Balance 529.0 ml -300 ml Laboratory: [ ] Laboratory: Test 08/12/24 10:31 08/12/24 04:11 08/11/24 11:10 08/11/24 04:27 Range/Units Whole Blood Glucose 91 70-110 MG/DL White Blood Count 13.7 H 4.8-10.8 K/uL Red Blood Count 2.83 L 4.00-5.50 MIL/uL Hemoglobin 8.7 L 12.0-16.0 g/dL Hematocrit 26.4 L 36-48 % Mean Corpuscular Volume 93.3 79-99 fL Mean Corpuscular Hemoglobin 30.7 27.0-33.0 pg Mean Corpuscular Hemoglobin Concent 33.0 32.0-36.0 g/dL Red Cell Distribution Width 17.4 H 11.0-15.5 % Platelet Count 637 H 130-400 K/uL Mean Platelet Volume 9.9 7.5-10.5 fL Nucleated Red Blood Cells 0.1 0.0-0.19 % Sodium Level 142 136-145 mmol/L Potassium Level 2.0 *L 3.5-5.1 mmol/L Chloride Level 109 101-111 mmol/L Carbon Dioxide Level 27 21-32 mmol/L Blood Urea Nitrogen 17 7-18 mg/dL Creatinine 0.4 L 0.5-1.0 mg/dL Glomerular Filtration Rate Calc 108 >90 mL/min Random Glucose 115 H 70-105 mg/dL Total Calcium 7.4 L 8.5-10.1 mg/dL Magnesium Level 1.50 L 1.80-2.40 mg/dL Total Bilirubin 0.2 0.2-1.0 mg/dL Aspartate Amino Transf (AST/SGOT) 45 H 10-37 U/L Alanine Aminotransferase (ALT/SGPT) 30 # 12-78 U/L Alkaline Phosphatase 146 #H 50-136 U/L Total Protein 4.1 L 6.0-8.3 g/dL Albumin 1.1 #L 3.5-5.0 g/dL Vancomycin Level Trough 18.7 # 10.0-20.0 UG/ML Immature Granulocyte % (Auto) 1.4 H 0-1 % Neutrophils (%) (Auto) 86.2 H 40.0-77.0 % Lymphocytes (%) (Auto) 4.1 L 21.0-51.0 % Monocytes (%) (Auto) 8.0 3.0-13.0 % Eosinophils (%) (Auto) 0.2 0.0-8.0 % Basophils (%) (Auto) 0.1 0.0-5.0 % Neutrophils # (Auto) 13.2 H 1.8-7.7 K/uL Lymphocytes # (Auto) 0.6 L 1.0-4.8 K/uL Monocytes # (Auto) 1.2 H 0.1-1.0 K/uL Eosinophils # (Auto) 0.03 0.00-0.70 K/uL Basophils # (Auto) 0.02 0.00-0.20 K/uL Absolute Immature Granulocyte (auto 0.22 0-1 K/uL Current Medications Medications (Trade) Dose Ordered Sig/Jennifer Route PRN Reason Start Time Stop Time Status Last Admin Dose Admin Acetaminophen (TYLenol 325MG TAB) 650 mg Q4H PRN PO MILD PAIN (1-3) 08/06/24 15:30 09/05/24 15:29 08/08/24 21:32 650 MG Acetaminophen (TYLenol 325MG TAB) 650 mg Q6H PRN PO MILD PAIN (1-3) 08/06/24 15:30 08/06/24 15:27 DC Acetaminophen (TYLenol 325MG TAB) 650 mg Q6H PRN PO TEMPERATURE GREATER THAN 101.5 08/06/24 15:30 09/05/24 15:29 Al Hydroxide/Mg Hydroxide (MAALox PLUS 30ML) 30 ml Q6H PRN PO INDIGESTION 08/06/24 15:30 09/05/24 15:29 Albuterol Sulfate (Proventil 0.083% 2.5mg/3ml) 2.5 mg [id number] PRN IH RESPIRATORY SYMPTOMS 08/06/24 15:30 09/05/24 15:29 Bacitracin (Bacitracin 28.4gm) Apply to right fore... DAILY TP 08/10/24 09:00 09/09/24 08:59 08/12/24 08:11 1 GM Cefepime HCl (MAXipime 1 GM vial) 1 gm Q8H IVPB 08/06/24 20:00 08/16/24 19:59 08/12/24 04:32 1 GM Ceftriaxone Sodium 2 gm/ Sodium Chloride 100 ml @ 200 mls/hr Q24H IV 08/06/24 15:30 08/06/24 15:27 DC Ceftriaxone Sodium (Rocephin 2gm Inj) 2 gm Q24H IVPB 08/06/24 16:00 08/06/24 15:37 DC Ceftriaxone Sodium (Rocephin 2gm Inj) 2 gm Q24H IVPB 08/07/24 16:00 08/06/24 17:54 DC Dextrose (D50w) 50 ml AD PRN IV HYPOGLYCEMIA PROTOCOL 08/06/24 15:30 09/05/24 15:29 08/09/24 12:05 50 ML Diphenhydramine HCl (BENAdryl INJ) 25 mg Q6H PRN IV SEVERE ITCHING/RASH 08/06/24 15:30 09/05/24 15:29 08/08/24 21:39 25 MG Famotidine (Pepcid 20mg Vial) 20 mg BID PRN IV NAUSEA/VOMITING 08/06/24 15:30 08/06/24 15:26 DC Famotidine (Pepcid 20mg Vial) 20 mg Q24H IV 08/06/24 21:00 09/05/24 20:59 08/11/24 21:38 20 MG Folic Acid (FOLic ACID 1 MG TABLET) 1 mg DAILY PO 08/09/24 09:00 09/08/24 08:59 08/12/24 08:10 1 MG Glucagon (Glucagon 1mg Kit) 1 mg AD PRN IM HYPOGLYCEMIA PROTOCOL 08/06/24 15:30 09/05/24 15:29 Guaifenesin/ Dextromethorphan (RobiTUSSin DM 200/20MG 10ML) 10 ml Q4H PRN PO COUGH 08/06/24 15:30 09/05/24 15:29 Heparin Sodium (Porcine) (HEParin 5,000 UNIT VIAL) 5,000 unit BID SQ 08/06/24 21:00 09/05/24 20:59 08/12/24 08:11 5,000 UNIT Hydralazine HCl (APRESOLine 20MG INJ) 10 mg Q6H PRN IV For:SBP above 160;DBP above 90 08/06/24 15:30 09/05/24 15:29 Hydrocortisone Sodium Succinate (Solu-corTEF 100MG) 50 mg Q6H6 IV 08/06/24 18:00 08/09/24 21:01 DC 08/09/24 18:37 50 MG Insulin Human Regular (humuLIN R 100 UNIT/ML 3ML) INSULIN SLIDING SCAL... ACHS SQ 08/06/24 16:30 09/05/24 16:29 Ipratropium [place] (AtrovENT UD) 0.5 mg [id number] IH 08/06/24 18:00 09/05/24 17:59 08/12/24 06:53 0.5 MG Ketorolac Tromethamine (toRADol) 15 mg Q6H6 PRN IV MODERATE PAIN (4-6) 08/11/24 19:00 08/16/24 18:59 08/12/24 02:18 15 MG Ketorolac Tromethamine (toRADol) 15 mg Q8H PRN IV MODERATE PAIN (4-6) 08/06/24 15:30 08/06/24 15:34 DC Lactulose (Constulose 20gm/ 30ml Udcup) 20 gm BID PRN PO CONSTIPATION 08/06/24 15:30 09/05/24 15:29 Leptospermum Honey (Medihoney) 1 appl DAILY TP 08/08/24 11:30 09/07/24 11:29 08/12/24 08:11 1 APPL Lidocaine (Lidocaine Patch 4%) 1 each DAILY PRN TP pain 08/11/24 19:00 09/10/24 18:59 Magnesium Sulfate 50 ml @ 0 mls/hr PROTOCOL PRN IV other 08/06/24 15:30 09/05/24 15:29 08/12/24 05:40 20 MLS/HR Magnesium Sulfate (Magnesium 4gm Premix 100ml) 4 gm AD IV 08/07/24 07:00 08/08/24 12:51 DC Meningococcal Polysaccharide Vacc (Debora Y-[id number]-135-Dip Vial) 1 each ONCE IM 08/07/24 09:30 08/07/24 09:16 DC Metronidazole/ Sodium Chloride (flaGYL) 500 mg Q8H IV 08/06/24 18:00 5/12/25 17:59 08/12/24 11:07 500 MG Micafungin Sodium 100 ml @ 100 mls/hr Q24H IV 08/09/24 15:00 09/08/24 14:59 08/11/24 18:27 100 MLS/HR Morphine Sulfate (morPHINE 2MG SYG) 1 mg Q4H PRN IVP SEVERE PAIN (7-10) 08/06/24 15:30 08/11/24 18:29 DC 08/11/24 13:07 1 MG Nitroglycerin (Nitrostat) 0.4 mg PROTOCOL PRN SL CHEST PAIN 08/06/24 15:30 09/05/24 15:29 Norepinephrine 250 ml @ 0 mls/hr PROTOCOL IV 08/06/24 15:30 09/05/24 15:29 08/07/24 03:23 14 MLS/HR Ondansetron HCl (zoFRAN 4MG INJ) 4 mg Q6H PRN IV NAUSEA/VOMITING 08/06/24 15:30 09/05/24 15:29 08/11/24 21:51 4 MG Oxycodone/ Acetaminophen (perCOCET) 1 tab Q6H PRN PO SEVERE PAIN (7-10) 08/06/24 15:30 08/06/24 15:27 DC Pharmacy Profile Note (Lace Assessment) 1 each AD MISC 08/07/24 13:30 08/08/24 12:51 DC Pharmacy Profile Note (Pharmacy Communication) 1 each ONCE MISC 08/09/24 14:00 08/09/24 14:31 DC Piperacillin Sod/ Tazobactam Sod (Zosyn 3.375gm+NS 50ml) 3.375 gm Q12H IV 08/06/24 12:30 08/06/24 15:14 DC 08/06/24 13:05 3.375 GM Potassium Chloride 100 ml @ 100 mls/hr AD PRN IV POTASSIUM PROTOCOL 08/06/24 15:30 09/05/24 15:29 08/12/24 08:10 100 MLS/HR Potassium Chloride (K-Dur 10meq Sr Tab) 10 meq AD PRN PO POTASSIUM PROTOCOL 08/06/24 15:30 09/05/24 15:29 Potassium Chloride (KCl 10% Elixir 20meq/15ml) 10 meq AD PRN PO POTASSIUM PROTOCOL 08/06/24 15:30 09/05/24 15:29 08/12/24 11:08 10 MEQ Sodium Chloride 1,000 ml @ 100 mls/hr Q10H IV 08/06/24 15:30 08/07/24 14:05 DC 08/06/24 15:35 100 MLS/HR Vancomycin HCl (Vancomycin 750mg) 750 mg Q12H IVPB 08/07/24 06:00 08/09/24 18:36 DC 08/09/24 06:36 750 MG Vancomycin HCl (Vancomycin 750mg) 750 mg Q12H IVPB 08/10/24 11:30 08/10/24 11:27 DC Vancomycin HCl (Vancomycin 750mg) 750 mg Q12H9 IVPB 08/09/24 21:00 08/09/24 18:54 DC Vancomycin HCl (Vancomycin 750mg) 750 mg Q12H9 IVPB 08/09/24 21:00 08/10/24 06:15 DC 08/09/24 23:18 750 MG Vancomycin HCl (Vancomycin 750mg) 750 mg Q24H IVPB 08/11/24 11:30 08/21/24 11:29 08/12/24 11:07 750 MG Vancomycin HCl (Vancomycin Protocol) 1 each PROTOCOL PRN IV VANCOMYCIN PROTOCOL 08/06/24 15:30 08/20/24 15:29 Vitamin B Complex (Vitamin B-12) 1,000 mcg AM IM 08/10/24 14:00 09/09/24 13:59 08/12/24 08:09 1,000 MCG Wound Care/ Dressing Products (Venelex Ointment) APPLY DIRECTED BID TP 08/09/24 21:00 09/08/24 20:59 08/12/24 08:11 1 GM Zolpidem Tartrate (AmbIEN) 5 mg HS PRN PO INSOMNIA 08/06/24 15:30 09/05/24 15:29 Diagnostics / Radiology: [COPY/PASTE HERE IF NO REPORTS PLEASE DELETE SECTION] Assessment: [ ] Plan: May have PO diet as per speech recommendations MALA CHARLES ADULT [employer]OBATION OFFICER August 12, 2024 11:26
--- NOTE | 2024-08-12 14:12 | PN ---
[facility] PROGRESS NOTE Date Patient Seen: August 12, 2024 Time of Visit: 14:07 Supervising Physician: [Dr. Weston] Primary Care Physician: Dr. John Hopson Outpatient Specialists: [ ] Inpatient Consults: [ ] PROBLEM LIST: Acute hypoxemic respiratory failure POA. 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 History Of esophageal stricture POA Recent suspected bowel perforation, ruled out s/p exploratory laparotomy with lysis of adhesions and placement of a gastrostomy tube 22 Serbian on 07/24/2024 INTERVAL HISTORY: DOS 08/10/24-patient is awake alert and oriented times person and place. Denies NS respiratory complaints denies any chest pain palpitations. She has been hemodynamically stable saturating 97% on room air. She has been in a speech eval this morning. On CBC WBCs trended down 15.7 today H&H 6.9/21.5 pending 1 unit of PRBCs to be transfused platelet count 759. Per promotion officer hold anticoagulant due to high-risk secondary to acute anemia. AST 88, alkaline phosphatase 196 total protein 4.7 albumin of 1.3. Disposition per primary. Continues on vancomycin and cefepime. 08/11 Patient is evaluated at bedside. She remains weak and bedridden. Hemoglobin is much improved after administration of PRBC. WBC remain elevated but downtrending. Platelets remain elevated as well, appreciate hematology r ecommendation. Potassium is decreased, replaced per protocol. Continues on IV antibiotics per ID. Echocardiogram shows no vegetation. No surgical intervention per General surgery. Continues with local wound care per Wound Care team. Disposition to [facility] once medically cleared. 08/12 patient is evaluated at bedside. WBCs are downtrending, hemoglobin stable. Platelets are also improved. Potassium is significantly decreased, but is actively being replaced aggressively. She continues on IV antibiotics. She passed MBSS and was initiated on clear liquid diet. Continues with PEG tube feeds for now. REVIEW OF SYSTEMS: 12 point ROS reviewed with patient. Pertinent positives mentioned above. Otherwise negative. PHYSICAL EXAM: GENERAL: Awake, alert and oriented x2 HEENT: EOMI, Sclera non icteric, moist mucosa NECK: Supple, no JVD, trachea midline LUNGS: Clear breath sounds bilaterally. No wheezes HEART: Regular rate and rhythm. Normal S1 and S2, without murmurs ABD: Abdomen soft, nontender. Bowel sounds present EXT: No clubbing cyanosis or edema NEURO: Able to follow commands Vital Signs (last 8hr) Date Time Temp Pulse Resp B/P (MAP) Pulse Ox O2 Delivery O2 Flow Rate FiO2 08/12/24 11:27 97.9 92 18 125/77 96 Room Air 08/12/24 11:25 80 18 08/12/24 07:49 98.4 79 17 111/75 96 Room Air 08/12/24 06:56 75 18 N/A Room Air 21 08/12/24 06:53 75 17 LABS: Hematology Labs: Test 08/12/24 04:11 08/11/24 04:27 Range/Units White Blood Count 13.7 H 4.8-10.8 K/uL Red Blood Count 2.83 L 4.00-5.50 MIL/uL Hemoglobin 8.7 L 12.0-16.0 g/dL Hematocrit 26.4 L 36-48 % Mean Corpuscular Volume 93.3 79-99 fL Mean Corpuscular Hemoglobin 30.7 27.0-33.0 pg Mean Corpuscular Hemoglobin Concent 33.0 32.0-36.0 g/dL Red Cell Distribution Width 17.4 H 11.0-15.5 % Platelet Count 637 H 130-400 K/uL Mean Platelet Volume 9.9 7.5-10.5 fL Nucleated Red Blood Cells 0.1 0.0-0.19 % Immature Granulocyte % (Auto) 1.4 H 0-1 % Neutrophils (%) (Auto) 86.2 H 40.0-77.0 % Lymphocytes (%) (Auto) 4.1 L 21.0-51.0 % Monocytes (%) (Auto) 8.0 3.0-13.0 % Eosinophils (%) (Auto) 0.2 0.0-8.0 % Basophils (%) (Auto) 0.1 0.0-5.0 % Neutrophils # (Auto) 13.2 H 1.8-7.7 K/uL Lymphocytes # (Auto) 0.6 L 1.0-4.8 K/uL Monocytes # (Auto) 1.2 H 0.1-1.0 K/uL Eosinophils # (Auto) 0.03 0.00-0.70 K/uL Basophils # (Auto) 0.02 0.00-0.20 K/uL Absolute Immature Granulocyte (auto 0.22 0-1 K/uL Chemistry Labs: Test 08/12/24 10:31 08/12/24 04:11 Range/Units Whole Blood Glucose 91 70-110 MG/DL Sodium Level 142 136-145 mmol/L Potassium Level 2.0 *L 3.5-5.1 mmol/L Chloride Level 109 101-111 mmol/L Carbon Dioxide Level 27 21-32 mmol/L Blood Urea Nitrogen 17 7-18 mg/dL Creatinine 0.4 L 0.5-1.0 mg/dL Glomerular Filtration Rate Calc 108 >90 mL/min Random Glucose 115 H 70-105 mg/dL Total Calcium 7.4 L 8.5-10.1 mg/dL Magnesium Level 1.50 L 1.80-2.40 mg/dL Total Bilirubin 0.2 0.2-1.0 mg/dL Aspartate Amino Transf (AST/SGOT) 45 H 10-37 U/L Alanine Aminotransferase (ALT/SGPT) 30 # 12-78 U/L Alkaline Phosphatase 146 #H 50-136 U/L Total Protein 4.1 L 6.0-8.3 g/dL Albumin 1.1 #L 3.5-5.0 g/dL DIAGNOSTICS / RADIOLOGY RESULTS: [ ] PLAN Follow Hematology recommendations. Transfuse 1 unit PRBCs for hemoglobin less than seven Disposition to SNF per primary team. Continue antibiotics with cefepime Flagyl and vanco per ID NEURO: Minimize central acting medications as possible. Maintain fall precautions, adequate lighting during the day PULMONARY: Supplemental 02 as needed. Maintain aspiration precautions at all times CARDIOVASCULAR: Follow hemodynamics. Vital signs per facility protocol GI & NUTRITION: Continue with nutritional support. Continue stool softeners and laxatives as needed. KIDNEYS & ELECTROLYTES: Strict monitoring of intake, output and overall fluid balance. Avoid nephrotoxic medications to the extent possible. Medications to be dosed according to renal function. Monitor electrolytes and replace as needed ENDOCRINE: Maintain blood glucose between 100-180 at all times. Hypoglycemia protocol in place INFECTIOUS DISEASE: Trend temperature, WBC and procalcitonin level Follow cultures, deescalate antibiotics as soon as possible. Panculture if new onset fever ONCOLOGY/HEMATOLOGY/COAGULATION: Monitor for s/s of bleeding Monitor hemoglobin, coagulation studies as needed SKIN: Pressure ulcer prevention per facility protocol Specialty mattress ORTHO/REHAB: Continue PT/OT Prophylaxis: Continue GI and DVT prophylaxis Code Status: Full Resuscitation Disposition: RUMA RAMIREZ August 12, 2024 14:12
--- NOTE | 2024-08-12 15:25 | NUR ---
[facility] Follow-up: Patient re-assessed by wound healing team, Wounds improving. Education provided to patient. Addendum: 08/13/24 at 1226 by ANA BENSON RN RN/ARNOLDO Amended: Links added.
[2024-08-12] MEDS: acetaMINOPHEN 325 MG TAB PO PRN (21:29)
[2024-08-12] MEDS: PoTASSium chl 10% ELIXIR 20MEQ 20 MEQ/15 ML UDCUP PO SCH (21:30)
--- NOTE | 2024-08-12 22:41 | PN ---
INFECTIOUS DISEASE PROGRESS NOTE Date of Service: August 12, 2024 SUBJECTIVE: This is a 69-year-old female patient was seen and examined at bedside in room 303. Patient is afebrile, temperature is 98.4. The WBC continues trending down and is 13.7 today. Hemoglobin is stable at 8.7. We will continue on micafungin, vancomycin and cefepime. No other issues reported by nursing. PHYSICAL EXAM EYES: Anicteric. Pupils equal and reactive. HENT: No oral thrush seen, moist Oral mucosa. NECK: Supple, no JVD or thyromegaly. LUNGS: Good air entry. No rales, no rhonchi. CARDIOVASCULAR: S1, S2 regular. No murmur heard. ABDOMEN: Soft, bowel sounds present, no organomegaly. Abdominal tenderness. Peg tube. CENTRAL NERVOUS SYSTEM: Awake, alert, oriented x2. SKIN: No rashes, no swelling. LYMPHATICS: No peripheral lymphadenopathy. MUSCULOSKELETAL: No joint swelling, erythema or tenderness. EXTREMITIES: No cyanosis or clubbing. Upper and Lower extremity edema. BACK: No deformity, no pressure ulcer. GENITOURINARY: No dysuria or hematuria. Incontinence. Vital Sign (Last 12 Hours) 08/12/24 08/12/24 08/12/24 08/12/24 11:25 11:27 15:50 18:47 Temp 97.9 98.2 Pulse 80 92 88 90 Resp 18 18 19 18 B/P (MAP) 125/77 120/78 Pulse Ox 96 94 O2 Delivery Room Air Room Air 08/12/24 08/12/24 18:48 20:00 Temp 98.1 Pulse 90 90 Resp 18 17 B/P (MAP) 123/76 Pulse Ox 91 O2 Delivery N/A Room Air Room Air FiO2 21 21 Intake & Output (last 24hrs) 08/11/24 08/11/24 08/12/24 15:00 23:00 07:00 Intake Total 529.0 ml Output Total 300 ml Balance 529.0 ml -300 ml LABS: Laboratory: Test 08/12/24 19:29 08/12/24 15:55 08/12/24 04:11 08/11/24 11:10 Range/Units Whole Blood Glucose 111 H 70-110 MG/DL Potassium Level 3.1 L 3.5-5.1 mmol/L White Blood Count 13.7 H 4.8-10.8 K/uL Red Blood Count 2.83 L 4.00-5.50 MIL/uL Hemoglobin 8.7 L 12.0-16.0 g/dL Hematocrit 26.4 L 36-48 % Mean Corpuscular Volume 93.3 79-99 fL Mean Corpuscular Hemoglobin 30.7 27.0-33.0 pg Mean Corpuscular Hemoglobin Concent 33.0 32.0-36.0 g/dL Red Cell Distribution Width 17.4 H 11.0-15.5 % Platelet Count 637 H 130-400 K/uL Mean Platelet Volume 9.9 7.5-10.5 fL Nucleated Red Blood Cells 0.1 0.0-0.19 % Sodium Level 142 136-145 mmol/L Chloride Level 109 101-111 mmol/L Carbon Dioxide Level 27 21-32 mmol/L Blood Urea Nitrogen 17 7-18 mg/dL Creatinine 0.4 L 0.5-1.0 mg/dL Glomerular Filtration Rate Calc 108 >90 mL/min Random Glucose 115 H 70-105 mg/dL Total Calcium 7.4 L 8.5-10.1 mg/dL Magnesium Level 1.50 L 1.80-2.40 mg/dL Total Bilirubin 0.2 0.2-1.0 mg/dL Aspartate Amino Transf (AST/SGOT) 45 H 10-37 U/L Alanine Aminotransferase (ALT/SGPT) 30 # 12-78 U/L Alkaline Phosphatase 146 #H 50-136 U/L Total Protein 4.1 L 6.0-8.3 g/dL Albumin 1.1 #L 3.5-5.0 g/dL Vancomycin Level Trough 18.7 # 10.0-20.0 UG/ML Test 08/11/24 04:27 Range/Units Immature Granulocyte % (Auto) 1.4 H 0-1 % Neutrophils (%) (Auto) 86.2 H 40.0-77.0 % Lymphocytes (%) (Auto) 4.1 L 21.0-51.0 % Monocytes (%) (Auto) 8.0 3.0-13.0 % Eosinophils (%) (Auto) 0.2 0.0-8.0 % Basophils (%) (Auto) 0.1 0.0-5.0 % Neutrophils # (Auto) 13.2 H 1.8-7.7 K/uL Lymphocytes # (Auto) 0.6 L 1.0-4.8 K/uL Monocytes # (Auto) 1.2 H 0.1-1.0 K/uL Eosinophils # (Auto) 0.03 0.00-0.70 K/uL Basophils # (Auto) 0.02 0.00-0.20 K/uL Absolute Immature Granulocyte (auto 0.22 0-1 K/uL ASSESSMENT: Fungemia. Urinary tract infection with Enterococcus faecalis and Rehana albicans. Leukocytosis, resolving. Sepsis. Suspected Ischemic bowel. Anasarca. Dementia. Dysphagia with PEG tube placement. History esophageal stricture/stenosis with stent placement 07/14/2024 Anemia requiring blood transfusion. PLAN: Continue Micanfungin IV. Continue vancomycin per pharmacy protocol. Continue cefepime. Continue GI prophylaxis. Continue physical therapy. We will monitor electrolytes. This case was reviewed and discussed with my supervising physician and the above assessment and plan was formulated and agreed upon. ATTESTATION BY PHYSICIAN I have seen and examined the patient. I reviewed the documentation, medical decision making, and treatment plan as noted by the mid-level provider above. I agree with the findings and plan of care. LANA VICK MD, [facility] August 12, 2024 22:41
[2024-08-13] VITALS (11 sets, daily range): BP systolic 123–140; BP diastolic 75–100; PULSE 81–104; RESP 16–20; TEMP 98–98.4; O2SAT 97–98
[2024-08-13 03:55] LABS: MEAN CORPUSCULAR HEMOGLOBIN 30.7 pg (27.0-33.0); MEAN CORPUSCULAR HGB CONC 32.9 g/dL (32.0-36.0); MEAN CORPUSCULAR VOLUME 93.3 fL (79-99); RED CELL DISTRIBUTION WIDTH 17.9 % (11.0-15.5); WHITE BLOOD COUNT (AUTO) 12.4 K/uL (4.8-10.8)
[2024-08-13 04:14] LABS: ALBUMIN 1.2 g/dL (3.5-5.0); BILIRUBIN,TOTAL 0.3 mg/dL (0.2-1.0); CREATININE 0.4 mg/dL (0.5-1.0); MAGNESIUM 1.7 mg/dL (1.80-2.40); POTASSIUM 4.2 mmol/L (3.5-5.1); TOTAL PROTEIN, SERUM 4.5 g/dL (6.0-8.3)
--- NOTE | 2024-08-13 08:12 | PN ---
GASTROENTEROLOGY PROGRESS NOTE Date of Visit: August 13, 2024 Time of Visit: 08:11 Events / Notes: [ ] Review of Systems: CONSTITUTIONAL: No malaise or change in sensation of wellbeing. ENMT: No rhinorrhea, otorrhea, sinus pain, ear ache. CARDIOVASCULAR: No angina, palpitations, orthopnea or paroxysmal dyspnea. RESPIRATORY: No SOB. GASTROINTESTINAL: No abdominal pain, nausea, vomiting, diarrhea, hematemesis, melena or change in the patient's habitual bowel movements consistency/number. GENITOURINARY: No dysuria, hematuria or change in bladder continence. MUSCULOSKELETAL: No new muscle pain or decrease in muscular strength. No new joint swelling, redness or tenderness. SKIN: No new rash. Physical Exam: GEN: Awake, alert, oriented in person, time and place, and in no acute distress. HEENT: No sinus tenderness. Tympanic membranes were not examined. No rhinorrhea. Oral pharyngeal mucosa is pink, moist and within normal limits. Neck is supple with no cervical lymphadenopathy, thyromegaly or JVD. CHEST: Inspection, palpation and percussion of the chest were unremarkable. Lung auscultation revealed normal breath sounds bilaterally. CARDIAC: PMI is within normal limits. Heart sounds are regular. Normal S1, S2. No gallop or murmur. ABD: Soft, non-tender and not distended. No peritoneal signs on palpation. No organomegaly. Normal bowel sounds. EXT: No cyanosis or clubbing. No edema. SKIN: Intact. No rashes. JOINTS: No evidence of synovitis or acute arthritis. NEURO: Alert and oriented to name, place and person. Cranial nerve examination is unremarkable. No focal motor deficits. Normal speech. Gait is normal. Strength is normal. Vital Signs (last 8hr) Date Time Temp Pulse Resp B/P (MAP) Pulse Ox O2 Delivery O2 Flow Rate FiO2 08/13/24 08:01 98.4 83 19 124/81 98 Room Air 21 08/13/24 06:47 95 18 N/A Room Air 21 08/13/24 04:00 98.2 97 17 125/84 96 Room Air 21 Laboratory: [ ] Laboratory: Test 08/13/24 03:40 08/12/24 19:29 08/11/24 11:10 Range/Units White Blood Count 12.4 H 4.8-10.8 K/uL Red Blood Count 3.00 L 4.00-5.50 MIL/uL Hemoglobin 9.2 L 12.0-16.0 g/dL Hematocrit 28.0 L 36-48 % Mean Corpuscular Volume 93.3 79-99 fL Mean Corpuscular Hemoglobin 30.7 27.0-33.0 pg Mean Corpuscular Hemoglobin Concent 32.9 32.0-36.0 g/dL Red Cell Distribution Width 17.9 H 11.0-15.5 % Platelet Count 624 H 130-400 K/uL Mean Platelet Volume 10.2 7.5-10.5 fL Nucleated Red Blood Cells 0.0 0.0-0.19 % Sodium Level 140 136-145 mmol/L Potassium Level 4.2 3.5-5.1 mmol/L Chloride Level 110 101-111 mmol/L Carbon Dioxide Level 27 21-32 mmol/L Blood Urea Nitrogen 17 7-18 mg/dL Creatinine 0.4 L 0.5-1.0 mg/dL Glomerular Filtration Rate Calc 108 >90 mL/min Random Glucose 111 H 70-105 mg/dL Total Calcium 7.8 L 8.5-10.1 mg/dL Magnesium Level 1.70 L 1.80-2.40 mg/dL Total Bilirubin 0.3 # 0.2-1.0 mg/dL Aspartate Amino Transf (AST/SGOT) 43 H 10-37 U/L Alanine Aminotransferase (ALT/SGPT) 28 12-78 U/L Alkaline Phosphatase 121 50-136 U/L Total Protein 4.5 L 6.0-8.3 g/dL Albumin 1.2 L 3.5-5.0 g/dL Whole Blood Glucose 111 H 70-110 MG/DL Vancomycin Level Trough 18.7 # 10.0-20.0 UG/ML Current Medications Medications (Trade) Dose Ordered Sig/Jennifer Route PRN Reason Start Time Stop Time Status Last Admin Dose Admin Acetaminophen (TYLenol 325MG TAB) 650 mg Q4H PRN PO MILD PAIN (1-3) 08/06/24 15:30 09/05/24 15:29 08/08/24 21:32 650 MG Acetaminophen (TYLenol 325MG TAB) 650 mg Q6H PRN PO MILD PAIN (1-3) 08/06/24 15:30 08/06/24 15:27 DC Acetaminophen (TYLenol 325MG TAB) 650 mg Q6H PRN PO TEMPERATURE GREATER THAN 101.5 08/06/24 15:30 09/05/24 15:29 08/12/24 21:29 650 MG Al Hydroxide/Mg Hydroxide (MAALox PLUS 30ML) 30 ml Q6H PRN PO INDIGESTION 08/06/24 15:30 09/05/24 15:29 Albuterol Sulfate (Proventil 0.083% 2.5mg/3ml) 2.5 mg [id number] PRN IH RESPIRATORY SYMPTOMS 08/06/24 15:30 09/05/24 15:29 Bacitracin (Bacitracin 28.4gm) Apply to right fore... DAILY TP 08/10/24 09:00 09/09/24 08:59 08/12/24 08:11 1 GM Cefepime HCl (MAXipime 1 GM vial) 1 gm Q8H IVPB 08/06/24 20:00 08/16/24 19:59 08/13/24 04:16 1 GM Ceftriaxone Sodium 2 gm/ Sodium Chloride 100 ml @ 200 mls/hr Q24H IV 08/06/24 15:30 08/06/24 15:27 DC Ceftriaxone Sodium (Rocephin 2gm Inj) 2 gm Q24H IVPB 08/06/24 16:00 08/06/24 15:37 DC Ceftriaxone Sodium (Rocephin 2gm Inj) 2 gm Q24H IVPB 08/07/24 16:00 08/06/24 17:54 DC Dextrose (D50w) 50 ml AD PRN IV HYPOGLYCEMIA PROTOCOL 08/06/24 15:30 09/05/24 15:29 08/09/24 12:05 50 ML Diphenhydramine HCl (BENAdryl INJ) 25 mg Q6H PRN IV SEVERE ITCHING/RASH 08/06/24 15:30 09/05/24 15:29 08/08/24 21:39 25 MG Famotidine (Pepcid 20mg Vial) 20 mg BID PRN IV NAUSEA/VOMITING 08/06/24 15:30 08/06/24 15:26 DC Famotidine (Pepcid 20mg Vial) 20 mg Q24H IV 08/06/24 21:00 09/05/24 20:59 08/12/24 21:30 20 MG Folic Acid (FOLic ACID 1 MG TABLET) 1 mg DAILY PO 08/09/24 09:00 09/08/24 08:59 08/12/24 08:10 1 MG Glucagon (Glucagon 1mg Kit) 1 mg AD PRN IM HYPOGLYCEMIA PROTOCOL 08/06/24 15:30 09/05/24 15:29 Guaifenesin/ Dextromethorphan (RobiTUSSin DM 200/20MG 10ML) 10 ml Q4H PRN PO COUGH 08/06/24 15:30 09/05/24 15:29 Heparin Sodium (Porcine) (HEParin 5,000 UNIT VIAL) 5,000 unit BID SQ 08/06/24 21:00 09/05/24 20:59 08/12/24 21:31 5,000 UNIT Hydralazine HCl (APRESOLine 20MG INJ) 10 mg Q6H PRN IV For:SBP above 160;DBP above 90 08/06/24 15:30 09/05/24 15:29 Hydrocortisone Sodium Succinate (Solu-corTEF 100MG) 50 mg Q6H6 IV 08/06/24 18:00 08/09/24 21:01 DC 08/09/24 18:37 50 MG Insulin Human Regular (humuLIN R 100 UNIT/ML 3ML) INSULIN SLIDING SCAL... ACHS SQ 08/06/24 16:30 09/05/24 16:29 Ipratropium Willow (AtrovENT UD) 0.5 mg [id number] IH 08/06/24 18:00 09/05/24 17:59 08/13/24 06:46 0.5 MG Ketorolac Tromethamine (toRADol) 15 mg Q6H6 PRN IV MODERATE PAIN (4-6) 08/11/24 19:00 08/16/24 18:59 08/13/24 01:08 15 MG Ketorolac Tromethamine (toRADol) 15 mg Q8H PRN IV MODERATE PAIN (4-6) 08/06/24 15:30 08/06/24 15:34 DC Lactulose (Constulose 20gm/ 30ml Udcup) 20 gm BID PRN PO CONSTIPATION 08/06/24 15:30 09/05/24 15:29 Leptospermum Honey (Medihoney) 1 appl DAILY TP 08/08/24 11:30 09/07/24 11:29 5/8/25 08:11 1 APPL Lidocaine (Lidocaine Patch 4%) 1 each DAILY PRN TP pain 08/11/24 19:00 09/10/24 18:59 Magnesium Sulfate 50 ml @ 0 mls/hr PROTOCOL PRN IV other 08/06/24 15:30 09/05/24 15:29 08/12/24 05:40 20 MLS/HR Magnesium Sulfate (Magnesium 4gm Premix 100ml) 4 gm AD IV 08/07/24 07:00 08/08/24 12:51 DC Meningococcal Polysaccharide Vacc (Brendanveo O-X-Q-w-135-Dip Vial) 1 each ONCE IM 08/07/24 09:30 08/07/24 09:16 DC Metronidazole/ Sodium Chloride (flaGYL) 500 mg Q8H IV 08/06/24 18:00 08/16/24 17:59 08/13/24 01:08 500 MG Micafungin Sodium 100 ml @ 100 mls/hr Q24H IV 08/09/24 15:00 09/08/24 14:59 08/12/24 15:32 100 MLS/HR Morphine Sulfate (morPHINE 2MG SYG) 1 mg Q4H PRN IVP SEVERE PAIN (7-10) 08/06/24 15:30 08/11/24 18:29 DC 08/11/24 13:07 1 MG Nitroglycerin (Nitrostat) 0.4 mg PROTOCOL PRN SL CHEST PAIN 08/06/24 15:30 09/05/24 15:29 Norepinephrine 250 ml @ 0 mls/hr PROTOCOL IV 08/06/24 15:30 09/05/24 15:29 08/07/24 03:23 14 MLS/HR Ondansetron HCl (zoFRAN 4MG INJ) 4 mg Q6H PRN IV NAUSEA/VOMITING 08/06/24 15:30 09/05/24 15:29 08/11/24 21:51 4 MG Oxycodone/ Acetaminophen (perCOCET) 1 tab Q6H PRN PO SEVERE PAIN (7-10) 08/06/24 15:30 08/06/24 15:27 DC Pharmacy Profile Note (Lace Assessment) 1 each AD MISC 08/07/24 13:30 08/08/24 12:51 DC Pharmacy Profile Note (Pharmacy Communication) 1 each ONCE MISC 08/09/24 14:00 08/09/24 14:31 DC Piperacillin Sod/ Tazobactam Sod (Zosyn 3.375gm+NS 50ml) 3.375 gm Q12H IV 08/06/24 12:30 08/06/24 15:14 DC 08/06/24 13:05 3.375 GM Potassium Chloride 40 meq/ Sodium Chloride 1,000 ml @ 70 mls/hr [id number] IV 08/12/24 16:00 09/11/24 15:59 08/13/24 05:09 70 MLS/HR Potassium Chloride 100 ml @ 100 mls/hr AD PRN IV POTASSIUM PROTOCOL 08/06/24 15:30 09/05/24 15:29 08/12/24 08:10 100 MLS/HR Potassium Chloride (K-Dur 10meq Sr Tab) 10 meq AD PRN PO POTASSIUM PROTOCOL 08/06/24 15:30 09/05/24 15:29 Potassium Chloride (KCl 10% Elixir 20meq/15ml) 10 meq AD PRN PO POTASSIUM PROTOCOL 08/06/24 15:30 09/05/24 15:29 08/12/24 18:32 10 MEQ Potassium Chloride (KCl 10% Elixir 20meq/15ml) 20 meq BID PO 08/12/24 21:00 09/11/24 20:59 08/12/24 21:30 20 MEQ Sodium Chloride 1,000 ml @ 100 mls/hr Q10H IV 08/06/24 15:30 08/07/24 14:05 DC 08/06/24 15:35 100 MLS/HR Vancomycin HCl (Vancomycin 750mg) 750 mg Q12H IVPB 08/07/24 06:00 08/09/24 18:36 DC 08/09/24 06:36 750 MG Vancomycin HCl (Vancomycin 750mg) 750 mg Q12H IVPB 08/10/24 11:30 08/10/24 11:27 DC Vancomycin HCl (Vancomycin 750mg) 750 mg Q12H9 IVPB 08/09/24 21:00 08/09/24 18:54 DC Vancomycin HCl (Vancomycin 750mg) 750 mg Q12H9 IVPB 08/09/24 21:00 08/10/24 06:15 DC 08/09/24 23:18 750 MG Vancomycin HCl (Vancomycin 750mg) 750 mg Q24H IVPB 08/11/24 11:30 08/21/24 11:29 08/12/24 11:07 750 MG Vancomycin HCl (Vancomycin Protocol) 1 each PROTOCOL PRN IV VANCOMYCIN PROTOCOL 08/06/24 15:30 08/20/24 15:29 Vitamin B Complex (Vitamin B-12) 1,000 mcg AM IM 08/10/24 14:00 09/09/24 13:59 08/12/24 08:09 1,000 MCG Wound Care/ Dressing Products (Venelex Ointment) APPLY DIRECTED BID TP 08/09/24 21:00 09/08/24 20:59 08/12/24 21:31 1 GM Zolpidem Tartrate (AmbIEN) 5 mg HS PRN PO INSOMNIA 08/06/24 15:30 09/05/24 15:29 Diagnostics / Radiology: [COPY/PASTE HERE IF NO REPORTS PLEASE DELETE SECTION] Assessment: [ ] Plan: May have PO diet as per speech recommendations MALA CHARLES [employer] August 13, 2024 08:12
[2024-08-13] MEDS ORDERED: MAGNESIUM 2GM PREMIX 50ML 50 ML IV SCH (10:00)
--- NOTE | 2024-08-13 11:47 | NUR ---
CM NOTE call made to [facility] with [facility] and states pt is accepted to return back to [facility]. under skilled care. updated primary nurse.
--- NOTE | 2024-08-13 13:29 | PN ---
[facility] PROGRESS NOTE Date Patient Seen: August 13, 2024 Time of Visit: 13:29 Supervising Physician: Dr. Adrianna Weston Primary Care Physician: Dr. John Hopson Outpatient Specialists: [ ] Inpatient Consults: [ ] PROBLEM LIST: Acute hypoxemic respiratory failure POA. 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 History Of esophageal stricture POA Recent suspected bowel perforation, ruled out s/p exploratory laparotomy with lysis of adhesions and placement of a gastrostomy tube 22 [place] on 07/24/2024 INTERVAL HISTORY: Patient evaluated at bedside, white count 12.4 today and potassium 4.2. Patient tolerating her diet at this time, continues on IV antibiotics cefepime and vancomycin. Per chart review patient will not be receiving surgery on this admission, disposition per primary, pending acceptance to [facility] we will she will be discharged once medically cleared. REVIEW OF SYSTEMS: 12 point ROS reviewed with patient. Pertinent positives mentioned above. Otherwise negative. PHYSICAL EXAM: GENERAL: Awake, alert and oriented x2 HEENT: EOMI, Sclera non icteric, moist mucosa NECK: Supple, no JVD, trachea midline LUNGS: Clear breath sounds bilaterally. No wheezes HEART: Regular rate and rhythm. Normal S1 and S2, without murmurs ABD: Abdomen soft, nontender. Bowel sounds present EXT: No clubbing cyanosis or edema NEURO: Able to follow commands Vital Signs (last 8hr) Date Time Temp Pulse Resp B/P (MAP) Pulse Ox O2 Delivery O2 Flow Rate FiO2 08/13/24 12:02 98.4 92 19 126/75 97 Room Air 21 08/13/24 11:22 84 18 08/13/24 08:01 98.4 83 19 124/81 98 Room Air 21 08/13/24 06:47 95 18 N/A Room Air 21 LABS: Hematology Labs: Test 08/13/24 03:40 Range/Units White Blood Count 12.4 H 4.8-10.8 K/uL Red Blood Count 3.00 L 4.00-5.50 MIL/uL Hemoglobin 9.2 L 12.0-16.0 g/dL Hematocrit 28.0 L 36-48 % Mean Corpuscular Volume 93.3 79-99 fL Mean Corpuscular Hemoglobin 30.7 27.0-33.0 pg Mean Corpuscular Hemoglobin Concent 32.9 32.0-36.0 g/dL Red Cell Distribution Width 17.9 H 11.0-15.5 % Platelet Count 624 H 130-400 K/uL Mean Platelet Volume 10.2 7.5-10.5 fL Nucleated Red Blood Cells 0.0 0.0-0.19 % Chemistry Labs: Test 08/13/24 11:50 08/13/24 03:40 Range/Units Whole Blood Glucose 106 70-110 MG/DL Sodium Level 140 136-145 mmol/L Potassium Level 4.2 3.5-5.1 mmol/L Chloride Level 110 101-111 mmol/L Carbon Dioxide Level 27 21-32 mmol/L Blood Urea Nitrogen 17 7-18 mg/dL Creatinine 0.4 L 0.5-1.0 mg/dL Glomerular Filtration Rate Calc 108 >90 mL/min Random Glucose 111 H 70-105 mg/dL Total Calcium 7.8 L 8.5-10.1 mg/dL Magnesium Level 1.70 L 1.80-2.40 mg/dL Total Bilirubin 0.3 # 0.2-1.0 mg/dL Aspartate Amino Transf (AST/SGOT) 43 H 10-37 U/L Alanine Aminotransferase (ALT/SGPT) 28 12-78 U/L Alkaline Phosphatase 121 50-136 U/L Total Protein 4.5 L 6.0-8.3 g/dL Albumin 1.2 L 3.5-5.0 g/dL DIAGNOSTICS / RADIOLOGY RESULTS: [ ] PLAN Follow Hematology recommendations. Transfuse 1 unit PRBCs for hemoglobin less than seven Disposition to SNF per primary team. Continue antibiotics with cefepime Flagyl and vanco per ID NEURO: Minimize central acting medications as possible. Maintain fall precautions, adequate lighting during the day PULMONARY: Supplemental 02 as needed. Maintain aspiration precautions at all times CARDIOVASCULAR: Follow hemodynamics. Vital signs per facility protocol GI & NUTRITION: Continue with nutritional support. Continue stool softeners and laxatives as needed. KIDNEYS & ELECTROLYTES: Strict monitoring of intake, output and overall fluid balance. Avoid nephrotoxic medications to the extent possible. Medications to be dosed according to renal function. Monitor electrolytes and replace as needed ENDOCRINE: Maintain blood glucose between 100-180 at all times. Hypoglycemia protocol in place INFECTIOUS DISEASE: Trend temperature, WBC and procalcitonin level Follow cultures, deescalate antibiotics as soon as possible. Panculture if new onset fever ONCOLOGY/HEMATOLOGY/COAGULATION: Monitor for s/s of bleeding Monitor hemoglobin, coagulation studies as needed SKIN: Pressure ulcer prevention per facility protocol Specialty mattress ORTHO/REHAB: Continue PT/OT Prophylaxis: Continue GI and DVT prophylaxis Code Status: Full Resuscitation Disposition: TBPRESTON MCCAIN August 13, 2024 13:29
--- NOTE | 2024-08-13 14:06 | DS ---
Discharge Summary Hospital Course Summary: Patient is 69 years old female with a past medical history of chronic anemia, GERD, hyperlipidemia, dementia, esophageal structure/stenosis, dysphagia s/p PEG tube placement. Crohn's disease, IBS, depression, hypertension, hypothyroidism, hyperlipidemia, GERD, chronic constipation, takotsubo cardiomyopathy, brain injury, gastric bypass 1991, neck surgery x2, bilateral knee surgery, carpal tunnel release, EGD with stent placement, who came to emergency department via EMS from [facility] for respiratory distress and abdominal pain. Per EMS patient was placed on oxygen and was having problems breathing. Patient is limited on verbalization. Patient was recently hospitalized to [facility] for GI bleed secondary to intestinal puncture. On 07/24/2024 exploratory lap was performed were replacement of G-tube was done with repair of bowel perforation by Dr Mccabe. Most recent 2D echo 07/10/2024 showed 60 to 65% stage I diastolic dysfunction. Most recent vital signs temperature 97.9 pulse 121 respiration 19 blood pressure 93/60 . Patient was placed on Levophed. Patient satting 95% on 4 L nasal cannula. WBC 30.3 hemoglobin 8.2 hematocrit 24 platelets 820 UA positive for leukocytosis. Sodium 132 potassium 5.0 chloride 100 carbon dioxide 29 BUN 19 creatinine 0.9 GFR 108 lactic 1.9 calcium 8.1 CK 12 troponin 9 , BNP 951 procalcitonin negative. Chest x-ray showed bilateral pulmonary infiltrates suggestive of pulmonary vascular congestion, possible superimposed pneumonitis. CT abdomen/pelvis as per radiologist showed marked spleen and ischemic bowel. Surgeon Dr. Armendariz was notified regarding above finding and was consulted. Family members/ at the bedside was notified regards admission in the further plan. Patient admitted to the ICU under hospitalist care for further evaluation/recommendation. 08/07/24 patient was seen by nurse practitioner and physician during rounding in room 210. Patient continues to be on Levophed map 90. Patient was seen by surgeon and per her recommendation ascites, ileus, pleural effusion, and a splenic infarct of unknown etiology on Eliquis. No surgical intervention at this moment is recommended. In the meantime placed G-tube was straight drainage NPO for now strict I and loss. Etiology of infarction is unclear. Patient was also evaluated by the professor of genetics no new recommendation at this moment. Continue current regimen of medications. Patient will receive pneumococcal vaccine, Hib, meningococcal vaccine as well. at the bedside was informed regards to further plan and recommendations. Patient will also receive 2 g of magnesium. One dose of furosemide IV push will be given to two bilateral lower extremities edema and bilateral upper extremities edema plus four. We will hold fluids for now. WBC 30.3. We will consult ID for antibiotic recommendations. 08/09 patient is seen and examined at bedside, case discussed with the RN, no acute events overnight, patient downgraded to the PCU. During my visit the patient is awake, following commands, on supplemental oxygen via nasal cannula 2 L, saturating 98%, hemodynamically stable, she is getting broad-spectrum IV antibiotics. is at bedside. Updated. Patient continues to be on Levophed map 90. Patient was seen by surgeon and per her recommendation ascites, ileus, pleural effusion, and a splenic infarct of unknown etiology on Eliquis. No surgical intervention at this moment is recommended. Etiology of infarction is unclear. Patient was also evaluated by the professor of genetics no new recommendation at this moment. Patient noted to have thrombocytosis, hematuria consultation requested. Patient denies nausea, no vomiting, no abdominal discomfort, she feels hungry, we will resume diet and advanced slowly. We will continue to monitor. ID consultation requested as well, we will follow input and recommendation. 08/10 patient is seen and examined at bedside, case discussed with the RN, no acute events overnight, during my visit patient comfortably in bed, following commands, getting broad-spectrum IV antibiotics, getting nutritional support via PEG tube. is at bedside during my visit, advanced directive confirmed, patient is DNR/DNI, patient with a wrist band in place. Leukocytosis improving, today 15.7, hemoglobin dropped to 6.9, patient to receive 1 unit of PRBC today, we will follow CBC post transfusion. Platelet count improving, today 759. Patient evaluated by flow nurse, thrombocytosis likely reactive/inflammatory, if no improvement patient will need bone marrow biopsy. at Bedside, uptake 08/11 Patient seen and examined, downgraded to medical floor, discussed with RN, resistance noted while using the PEG tube, patient is alert, following commands, not in the room during my visit. 08/12 patient is seen and examined at bedside, case discussed with the RN, PEG tube is working fine, currently patient getting nutritional support via the PEG tube at the time of my visit, tolerating well, getting potassium and magnesium supplementation IV. Potassium level today 2.0, magnesium 1.5. is at bedside during my visit, updated. Patient has remained hemodynamically stable, BP 129/65, she is currently saturating normal on room air. [employer] Team(s): Gastroenterology, critical Care and flow nurse, infectious disease Assessment/Plan: Final diagnosis [ Acute sepsis secondary to ischemic bowel, UTI POA Acute hypoxic respiratory failure POA Infarcted spleen per CT abdomen/pelvis POA Ischemic bowel per CT abdomen/pelvis POA Hypotension requiring Levophed drip POA Acute complicated cystitis POA Acute on chronic diastolic congestive heart failure 2D echo 60 to 65 % stage I dysfunction 07/10/2024 Esophageal structure/stenosis 07/24/2024 exploratory lap repair of G-tube repair of perforation Crohn's disease POA IBS POA Thrombocytopenia POA Depression POA Hypertension POA Hypothyroidism POA Chronic constipation POA Takotsubo cardiomyopathy POA Debility and frailty POA Chronic anemia POA GERD, POA Hyperlipidemia POA Multiple skin tears on arms with bilateral lower extremities wounds POA Dementia POA History of Recent GI bleedon previous admission due secondary to intestinal puncture History of brain injury History of EGD with stent placement 07/14/2024 History of carpal tunnel release History of neck surgery x2 History of bilateral knee surgery History of EGD with stent placement 07/14/2024] Possible malfunction PEG tube History of DVT and bilateral PE Status post IVC filter placement in the past History of Crohn's disease Dysphagia status post PEG tube placement PLAN: Patient downgraded to medical floor. Per discussed with RN, peg tube is working fine, patient getting nutritional support via PEG tube, currently at goal. Continue the patient on broad-spectrum IV antibiotics, continue to monitor WBC in a.m. ID input noted and appreciated, continue with cefepime, vancomycin and micafungin. Continue to monitor CBC transfuse as needed. Hematology input noted and appreciated, continue to hold anticoagulation with the Eliquis for now. Patient evaluated by speech therapist, agreed to initiate on ET, awaiting further recommendations by GI. We will follow up. Case management consulted to start discharge process back to [facility] Hospital bedside, updated. NEURO: Minimize central acting medications as possible. Fall Precautions. Well lighted room through the day and minimize interruptions through the night to prevent acute delirium. PULMONARY: Supplemental 02 as needed BiPAP as necessary, for respiratory distress Titrate Fio2 to keep Spo2 > or = 90% DuoNebs and CPT as needed IS hourly while awake for pulmonary hygiene prn Out of bed to chair as tolerated Maintain aspiration precautions at all times CARDIOVASCULAR: Follow hemodynamics. Vital signs per facility protocol GI & NUTRITION: Continue nutritional support Aspirations precautions Prokinetic agents and laxatives as needed KIDNEYS & ELECTROLYTES: Strict monitoring of intake and output Daily weights Avoid nephrotoxic agents Monitor electrolytes and replace as needed Goal urine output of 30mL/hr or 0.5mL/kg/hr Medications to be dosed according to renal function. Avoid contrast if possible ENDOCRINE: Maintain blood glucose between 100-180 at all times. Insulin sliding scale for blood glucose management Hypoglycemia and hyperglycemia protocol in place INFECTIOUS DISEASE: Trend temperature, WBC and procalcitonin level Follow cultures, deescalate antibiotics as soon as possible. Panculture if new onset fever HEMATOLOGY & COAGULATION: Monitor H&H. Keep Hgb > 7 Transfuse 1 unit of PRBC for Hgb < 7 Transfuse 1 pack of platelets of platelets < 20, 000 Watch for any signs and symptoms of bleeding SKIN: Pressure ulcer prevention per facility protocol Specialty mattress as needed ORTHO/REHAB Continue PT/OT PRN: MEDICATIONS Tylenol 650 mg po every 4 hrs for fever zofran 4 mg IV every 6 hrs for n/v Hydralazine 5 mg IV every 4 hrs systolic pressure > 160 bowel regiment: lactulose 20 gm PO BID PRN constipation Supportive measures: Continue GI and DVT prophylaxis Disposition: Pending improvement in clinical condition All questions answered time spent: > 35 min Discharge Instructions: Patient to be discharged back to alf facility for continuation of medical care. Home Medications: Reported Medications Ascorbic Acid (Vitamin C) 500 Mg Tablet, 1 TAB PO DAILY for 30 Days, #30 TAB 0 Refills 07/24/24 Potassium Chloride (Potassium Chloride) 20 Meq/15 Ml Liquid, 7.5 ML PO DAILY for 30 Days, #450 ML 0 Refills 07/24/24 Docusate Sodium (Colace Liquid 100Mg/10Ml) 50 Mg/5 Ml Liq, 10 ML PO DAILY for 30 Days, #150 ML 0 Refills 07/24/24 Apixaban (Eliquis) 2.5 Mg Tablet, 1 TAB PO BID for 30 Days, #60 TAB 0 Refills 07/24/24 Montelukast Sodium (Montelukast Sodium) 10 Mg Tablet, 1 TAB PO DAILY for 30 Days, #30 TAB 0 Refills 05/04/24 Midodrine HCl (Midodrine HCl) 5 Mg Tablet, 1 TAB PO TID for 30 Days, #90 TAB 0 Refills 05/04/24 Sucralfate (Sucralfate) 1 Gram Tablet, 1 TAB PO TID for 30 Days, #90 TAB 0 Refills 05/04/24 Simvastatin (Simvastatin) 20 Mg Tablet, 20 MG PO AM, TAB 05/04/24 Sertraline HCl (Sertraline HCl) 100 Mg Tablet, 1 TAB PO DAILY for 30 Days, #30 TAB 0 Refills 05/04/24 Folic Acid (Folic Acid) 0.8 Mg Capsule, 1 CAP PO DAILY for 30 Days, #30 CAP 0 Refills 05/04/24 Cyanocobalamin (Vitamin B-12) (B-12) 1,000 Mcg Tablet, 1 TAB PO DAILY for 30 Days, #30 TAB 0 Refills 05/04/24 Levothyroxine Sodium (Levothyroxine) 50 Mcg Capsule, 1 CAP PO DAILY for 30 Days, #30 CAP 0 Refills 05/04/24 [Azasan] No Conflict Check, 50 MG PO AM 05/04/24 Discontinued Reported Medications Metoprolol Succinate (Metoprolol Succinate) 50 Mg Tab.er.24h, 1 TAB PO DAILY 08/07/24 Sucralfate (Sucralfate) 1 Gram/10 Ml Oral.susp, 10 ML PO QID 08/07/24 Fludrocortisone Acetate (Florinef) 0.1 Mg Tab, 1 TAB PO DAILY 08/07/24 Levothyroxine Sodium (Levothyroxine Sodium) 50 Mcg Tablet, 1 TAB PO DAILY 08/07/24 Megestrol Acetate (Megestrol Acetate) 400 Mg/10 Ml (40 Mg/Ml) Oral.susp, 10 ML PO DAILY 08/07/24 Folic Acid (Folvite) 1 Mg Tab, 1 TAB PO DAILY 08/07/24 Apixaban (Eliquis) 5 Mg Tablet, 1 TAB PO BID 08/07/24 Esomeprazole Magnesium (Esomeprazole Magnesium) 20 Mg Capsule.dr, 1 CAP PO DAILY 08/07/24 Midodrine HCl (Midodrine HCl) 10 Mg Tablet, 1.5 TAB PO TID 08/07/24 Famotidine (Famotidine) 40 Mg Tablet, 1 TAB PO DAILY 08/07/24 Furosemide (Furosemide) 20 Mg Tablet, 1 TAB PO DAILY 08/07/24 Time spent arranging discharge: 31-60 minutes LELE GALEANO MD August 13, 2024 14:06
--- NOTE | 2024-08-13 15:52 | PN ---
INFECTIOUS DISEASE PROGRESS NOTE Date of Service: August 13, 2024 SUBJECTIVE: This 69 year old female patient is being seen today at bedside. Awake, alert , she's laying in bed in no distress Patient will be D/C to SNF and will continue with Micafungin for 11 more days. She denies chest pain or shortness of breath. No fever or chills. No nausea or vomiting at this time. No acute events over night. PHYSICAL EXAM EYES: Anicteric. Pupils equal and reactive. HENT: No oral thrush seen, moist Oral mucosa. NECK: Supple, no JVD or thyromegaly. LUNGS: Good air entry. No rales, no rhonchi. CARDIOVASCULAR: S1, S2 regular. No murmur heard. ABDOMEN: Soft, bowel sounds present, no organomegaly. Abdominal pain. Peg tube. CENTRAL NERVOUS SYSTEM: Awake, alert, oriented x2. SKIN: No rashes, no swelling. LYMPHATICS: No peripheral lymphadenopathy. MUSCULOSKELETAL: No joint swelling, erythema or tenderness. EXTREMITIES: No cyanosis or clubbing. Upper and Lower extremity edema. BACK: No deformity, no pressure ulcer. GENITOURINARY: No dysuria or hematuria. Incontinence. Vital Sign (Last 12 Hours) 08/13/24 08/13/24 08/13/24 08/13/24 04:00 06:47 08:01 11:22 Temp 98.2 98.4 Pulse 97 95 83 84 Resp 17 18 19 18 B/P (MAP) 125/84 124/81 Pulse Ox 96 98 O2 Delivery Room Air N/A Room Air Room Air FiO2 21 21 21 08/13/24 08/13/24 12:02 15:02 Temp 98.4 Pulse 92 Resp 19 B/P (MAP) 126/75 Pulse Ox 97 98 O2 Delivery Room Air Room Air* O2 Flow Rate 0 FiO2 21 21 Intake & Output (last 24hrs) 08/12/24 08/12/24 08/13/24 15:00 23:00 07:00 Intake Total 150 ml 1220.0 ml 1700.0 ml Output Total 400 ml Balance 150 ml 820.0 ml 1700.0 ml LABS: Laboratory: Test 08/13/24 11:50 08/13/24 10:36 08/13/24 03:40 Range/Units Whole Blood Glucose 106 70-110 MG/DL Vancomycin Level Trough 14.0 # 10.0-20.0 UG/ML White Blood Count 12.4 H 4.8-10.8 K/uL Red Blood Count 3.00 L 4.00-5.50 MIL/uL Hemoglobin 9.2 L 12.0-16.0 g/dL Hematocrit 28.0 L 36-48 % Mean Corpuscular Volume 93.3 79-99 fL Mean Corpuscular Hemoglobin 30.7 27.0-33.0 pg Mean Corpuscular Hemoglobin Concent 32.9 32.0-36.0 g/dL Red Cell Distribution Width 17.9 H 11.0-15.5 % Platelet Count 624 H 130-400 K/uL Mean Platelet Volume 10.2 7.5-10.5 fL Nucleated Red Blood Cells 0.0 0.0-0.19 % Sodium Level 140 136-145 mmol/L Potassium Level 4.2 3.5-5.1 mmol/L Chloride Level 110 101-111 mmol/L Carbon Dioxide Level 27 21-32 mmol/L Blood Urea Nitrogen 17 7-18 mg/dL Creatinine 0.4 L 0.5-1.0 mg/dL Glomerular Filtration Rate Calc 108 >90 mL/min Random Glucose 111 H 70-105 mg/dL Total Calcium 7.8 L 8.5-10.1 mg/dL Magnesium Level 1.70 L 1.80-2.40 mg/dL Total Bilirubin 0.3 # 0.2-1.0 mg/dL Aspartate Amino Transf (AST/SGOT) 43 H 10-37 U/L Alanine Aminotransferase (ALT/SGPT) 28 12-78 U/L Alkaline Phosphatase 121 50-136 U/L Total Protein 4.5 L 6.0-8.3 g/dL Albumin 1.2 L 3.5-5.0 g/dL ASSESSMENT: Fungemia. Urinary tract infection with Enterococcus faecalis and Rehana albicans. Leukocytosis, resolving. Sepsis. Suspected Ischemic bowel. Anasarca. Dementia. Dysphagia with PEG tube placement. History esophageal stricture/stenosis with stent placement 07/14/2024 Anemia requiring blood transfusion. PLAN: Continue Micanfungin IV. Continue vancomycin per pharmacy protocol. Continue cefepime. Continue GI prophylaxis. Continue physical therapy. We will monitor electrolytes. Continue with micafungin in SNF This case was reviewed and discussed with my supervising physician and the above assessment and plan was formulated and agreed upon. [facility] August 13, 2024 15:52
--- NOTE | 2024-08-13 17:00 | NUR ---
REPORT GIVEN TO BLAYNE AT THIS TIME. REPORT GIVEN TO HEBERT ALLEN
== END 2024-08-13 22:22 | DRG 871 ==
LOC: EDH 09:47 → EDHIP 15:15 → 2BH 16:27 → 2AH 08-08 17:52 → 3AH 08-10 23:20
PROVIDERS: ADMIT Internal Medicine; ATTEND Internal Medicine
PROC: 30233N1 Transfusion of Nonautologous Red Blood Cells into Peripheral Vein, Percutaneous Approach (ICD-10-PCS; principal; 2024-08-10)
DX: A41.9 Sepsis, unspecified organism (principal); E43 Unspecified severe protein-calorie malnutrition; I50.33 Acute on chronic diastolic (congestive) heart failure; R65.21 Severe sepsis with septic shock; J96.01 Acute respiratory failure with hypoxia; K55.9 Vascular disorder of intestine, unspecified; F03.93 Unspecified dementia, unspecified severity, with mood disturbance; I51.81 Takotsubo syndrome; N30.00 Acute cystitis without hematuria; R64 Cachexia; B37.49 Other urogenital candidiasis; R18.8 Other ascites; D73.5 Infarction of spleen; E78.00 Pure hypercholesterolemia, unspecified; D75.839 Thrombocytosis, unspecified; K22.2 Esophageal obstruction; F41.1 Generalized anxiety disorder; K58.9 Irritable bowel syndrome, unspecified; D64.9 Anemia, unspecified; D69.6 Thrombocytopenia, unspecified; E03.9 Hypothyroidism, unspecified; F32.A Depression, unspecified; K21.9 Gastro-esophageal reflux disease without esophagitis; Z68.23 Body mass index [BMI] 23.0-23.9, adult; Z98.84 Bariatric surgery status; Z95.828 Presence of other vascular implants and grafts; Z93.1 Gastrostomy status; Z86.718 Personal history of other venous thrombosis and embolism; Z86.711 Personal history of pulmonary embolism; Z79.01 Long term (current) use of anticoagulants; Z74.01 Bed confinement status; Z79.899 Other long term (current) drug therapy
CPT/HCPCS: 36415; 36430; 71045; 74177; 80048; 80053; 80076; 80202; 81001; 82140; 82550; 82948; 83036; 83605; 83735; 83880; 84132; 84145; 84484; 85014; 85018; 85025; 85027; 85378; 85610; 85730; 86850; 86900; 86901; 86923; 87040; 87086; 87186; 87804; 90732; 90743; 92610; 93005; 93308; 93356; 94640; 94664; 96365; 96367; 96375; 99291; G0378; J0692; J0696; J1200; J1644; J1720; J1885; J1938; J2248; J2270; J2405; J2543; J3370; J3420; J3475; J3480; J3490; J7030; J7070; P9016; Q9967